=== PATIENT | male | born 1955 | race Caucasian/White ===

== ENCOUNTER 2020-02-21 12:20 | Inpatient (IN) | payer OTHER, MEDICARE ==
[~2020-02-21] VITALS: Ht 182.9 cm; Wt 83.1 kg
--- OUTSIDE RECORDS SUMMARY | ~2020-02-21 | XMS | Encounter Summary ---
Demographics + + + | Address | [address] | | | [place] [address] | + + + | Home Phone | | + + + | Preferred Language | Unknown | + + + | Marital Status | Unknown | + + + | Yazdanism Affiliation | Unknown | + + + | Race | White | + + + | Ethnic Group | Not or | + + + Author + + + | Author | [facility] | | | and [place] | + + + | Organization | [facility] | | | and [place] | + + + | Address | Unknown | + + + | Phone | Unavailable | + + + Support + + + + + | Name | Relationship | Address | Phone | + + + + + | Valeriedileep Gamboawell | [place] | [address] | | | | | [address] | | | | | [address] | | + + + + + Care Team Providers + +------+ + | Care Magnesium Mill Operator Name | Role | Phone | + +------+ + | Wing Justice PA-C | PCP | | + +------+ + Reason for Visit Auth/Cert +--------+--------+ + + + + | Status | Reason | Specialty | Diagnoses / | Referred By | Referred To | | | | | Procedures | Contact | Contact | +--------+--------+ + + + + | | | | Diagnoses | | | | | | | CAD in | | | | | | | [place] | | | | | | | artery | | | | | | | Procedures | | | | | | | MD CABG, | | | | | | | ARTERIAL, | | | | | | | THREE | | | | | | | CORONARY | | | | | | | ARTERY | | | | | | | BYPASS GRAFT | | | +--------+--------+ + + + + Encounter Details +--------+ + + + + | Date | Type | Department | Care Team | Description | +--------+ + + + + | 02/13/ | Hospital | [facility] | Cj Faustin MD | CAD in [place] | | 2019 - | Encounter | [facility] | [address] | artery; Coronary | | | | [address] | [place], [place] | artery disease | | 02/20/ | | [place], [place] | [address] | involving [place] | | 2019 | | [address] | | coronary artery of | | | | [phone] | | [place] heart without | | | | | | angina pectoris | +--------+ + + + + Social History + +-------+ +--------+ + | Tobacco Use | Types | Packs/Day | Years | Date | | | | | Used | | + +-------+ +--------+ + | Former Smoker | | 0.25 | 45 | 11/27/1974 - 01/2020 | + +-------+ +--------+ + + +---+---+---+ | Smokeless Tobacco: | | | | | Never Used | | | | + +---+---+---+ + + | Comments: Per pt quit a couple weeks ago | + + + + +---------+ + | Alcohol Use | Drinks/Week | oz/Week | Comments | + + +---------+ + | Not Currently | | | | + + +---------+ + + + + | Sex Assigned at | Date Recorded | | | | + + + | Not on file | | + + + documented as of this encounter Last Filed Vital Signs + + + + + | Vital Sign | Reading | Time Taken | Comments | + + + + + | Blood Pressure | 131/73 | 2020 7:41 AM | | | | | PDT | | + + + + + | Pulse | 83 | 2020 7:41 AM | | | | | PDT | | + + + + + | Temperature | 36.4 C (97.5 F) | 2020 7:41 AM | | | | | PDT | | + + + + + | Respiratory Rate | 16 | 2020 7:41 AM | | | | | PDT | | + + + + + | Oxygen Saturation | 94% | 2020 7:41 AM | | | | | PDT | | + + + + + | Inhaled Oxygen | - | - | | | Concentration | | | | + + + + + | Weight | 89.1 kg (196 lb 6.9 | 2020 5:00 AM | | | | oz) | PDT | | + + + + + | Height | 182.9 cm (6') | 02/14/2020 6:19 AM | | | | | PDT | | + + + + + | Body Mass Index | 26.64 | 02/14/2020 6:19 AM | | | | | PDT | | + + + + + documented in this encounter Functional Status + + + + | Functional Status | Response | Date of Assessment | + + + + | Are you deaf or do you have serious | No | 11/11/2019 | | difficulty hearing? | | | + + + + | Are you blind or do you have serious | No | 11/11/2019 | | difficulty seeing, even when wearing | | | | glasses? | | | + + + + | Do you have serious difficulty walking or | No | 11/11/2019 | | climbing stairs? (5 years old or older) | | | + + + + | Do you have difficulty dressing or bathing? | No | 11/11/2019 | | (5 years old or older) | | | + + + + | Because of a physical, mental, or emotional | No | 11/11/2019 | | condition, do you have difficulty doing | | | | errands alone such as visiting a doctor's | | | | office or shopping? [15 years old or | | | | older)] | | | + + + + + + + + | Cognitive Status | Response | Date of Assessment | + + + + | Because of a physical, mental, or emotional | No | 11/11/2019 | | condition, do you have serious difficulty | | | | concentrating, remembering, or making | | | | decisions? (5 years old or older) | | | + + + + documented as of this encounter Discharge Summaries Celio Rod PA - 2020 8:48 AM PDTFormatting of this note might be different fr om the original. Service: Cardiothoracic Surgery Discharge Summary Pt: Miles Ash Jr. AGE/SEX: 64 y.o. male ROOM: [address] [place] [address] : 1955 PCP: Wing Justice PA-C Date/Time:2020 8:49 AM PDT Date of Admission: 02/14/2020 Date of Discharge: 2020 Hospital Day: LOS: 7 days Surgery/Procedure: 02/14/2020, Dr Faustin CABG x 3 Post-Op Day: 7 Days Post-Op Discharge Provider: WHITNEY Rawls Discharge Diagnoses: Principal Problem: CAD in [place] artery Active Problems: Diabetes mellitus Resolved Problems: * No resolved hospital problems. * BRIEF HISTORY OF PRESENTATION: Miles Ash Jr. is a 64 y.o. male w/ significant past medical history of hype rtension, diabetes mellitus and ongoing tobacco abuse, who was admitted on 11/09/2019 with c hest pain. He was diagnosed with an acute inferior wall myocardial infarction and underwent PCI and stenting of the RPDA. The patient had significant residual disease in the left sys tem including a high-grade proximal LAD lesion involving a large diagonal branch. There wa s also moderate disease in the circumflex. The patient was treated with antiplatelet therap y for his stent for 3 months. HOSPITAL COURSE: The patient was taken to the operating room and underwent the above procedure(s) on 2019. Operation was uneventful (please refer to operative note for details of the same). The patient tolerated the procedure well and was transferred to the ICU intubated and in stable condition, and was extubated per ICU protocol. He spent 2 nights in the ICU and on patient was transferred to the cardiac unit, hemodynamically stable. He received electroly te replacement per protocol and continued to make good recovery, ambulating, tolerating card iac diet, and passing bowel movements. Chest tubes and pacing wires were removed without com plication, and the patient remained stable without supplemental oxygen. The patient was fit for discharge to [facility] on 2020. 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, left eye Diabetes mellitus ([facility]) 2012 Diabetes mellitus type I ([facility]) 2012 Heart attack ([facility]) 10/2019 Loose, teeth upper and lower dentures Stroke ([facility]) 2011 right sided, no residual effects per pt Past Surgical History: Procedure Laterality Date CARDIAC CATHERIZATION N/A 11/09/2019 Procedure: CV COR ANGIO; Surgeon: Gary Avery MD; [place] [facility] [place]ARDIAC CATHERIZ[place] N/A 11/09/2019 Procedure: CV LHC; Surgeon: Gary Avery MD; [place] [facility] [place] CARDIAC CATHERIZATION N/A 11/09/2019 Procedure: CV Stent; Surgeon: Gary Avery MD; [place] [facility] [place] CORONARY ARTERY BYPASS GRAFT N/A 02/14/2020 Procedure: CORONARY ARTERY BYPASS GRAFT; Surgeon: Cj Faustin MD; [place] [facility] [place] No Known Allergies Medications Prior to Admission Medication Sig Dispense Refill aspirin 81 mg chewable tablet Chew and swallow 1 tablet (81 mg total) Daily 90 tablet 3 atorvaSTATin (LIPITOR) 80 MG tablet Take 1 tablet (80 mg total) by mouth nightly 90 tab let 3 clopidogrel (PLAVIX) 75 mg tablet Take 1 tablet (75 mg total) by mouth Daily 90 tablet 3 lisinopril (PRINIVIL, ZESTRIL) 10 mg tablet Take 1 tablet (10 mg total) by mouth Daily 90 tablet 3 metoprolol succinate (TOPROL-XL) 50 mg 24 hr tablet Take 1 tablet (50 mg total) by mout h Daily 90 tablet 3 nitroglycerin (NITROSTAT) 0.[address] 1 tablet (0.4 mg total) under the tong ue every 5 minutes as needed for Chest pain (Patient not taking: Reported on 02/14/2020.) 30 tablet 11 DISCHARGE EXAM Vital Signs: BP 131/73 | Pulse 83 | Temp 36.4 C (97.5 F) (Oral) | Resp 16 | Ht 1.829 m (6') | W t 89.1 kg (196 lb 6.9 oz) | SpO2 94% | BMI 26.64 kg/m Temp: [36.4 C (97.5 F)-36.9 C (98.4 F)] 36.4 C (97.5 F) Pulse: [70-93] 83 Resp: [16-20] 16 BP: (102-155)/(53-74) 131/73 Current weight: Patient Vitals for the past 96 hrs: Weight 02/21/20 0500 89.1 kg (196 lb 6.9 oz) 02/20/20 0500 90.7 kg (199 lb 15.3 oz) 02/17/20 2134 97.5 kg (214 lb 15.2 oz) Admission weight: Weight: 90 kg (198 lb 6.6 oz) Physical Exam: General: Alert, oriented, in no acute distress,resting in chair Heart: RRR No murmur Lungs: CTA b/l Dim bases. Abdomen:Soft, nondistended, nontender Extremities: Well perfused, mild LE edema Musculoskeletal:no deformities or significant abnormalities Neurological: No gross focal motor or sensory deficits Skin:No rash or lesions. Mid-sternal incision dressing is C/D/I. Chest tube removed inc ision C/D/I. Pacing wires removed EVH incisions C/D/I. DATA Recent Results (from the past 24 hour(s)) Potassium Result Value Ref Range K 3.7 3.5 - 4.9 mmol/L POC Glucose Result Value Ref Range Glucose, POC 203 (H) 65 - 99 mg/dL POC Glucose Result Value Ref Range Glucose, POC 191 (H) 65 - 99 mg/dL Coronavirus (COVID-19) NAAT Specimen: Nasopharynx; Tissue Result Value Ref Range Patient Symptomatic NO SARS-CoV-2, NAAT (COVID-19) NEGATIVE NEG POC Glucose Result Value Ref Range Glucose, POC 166 (H) 65 - 99 mg/dL Basic Metabolic Panel Result Value Ref Range Na 142 135 - 145 mmol/L K 3.7 3.5 - 4.9 mmol/L Cl 107 99 - 109 mmol/L CO2 29 23 - 32 mmol/L Anion Gap 10 5 - 20 mmol/L Glucose 113 (H) 65 - 99 mg/dL BUN 17 8 - 25 mg/dL Creatinine 0.81 0.70 - 1.30 mg/dL BUN/Creatinine Ratio 21 Calcium 8.9 8.5 - 10.5 mg/dL Estimated GFR >60 >60 mL/min/1.73m2 CBC with Differential Result Value Ref Range WBC 9.24 3.80 - 11.00 K/uL Red Blood Cells 3.47 (L) 4.20 - 5.70 M/uL Hemoglobin 10.0 (L) 13.2 - 17.0 g/dL Hematocrit 31.0 (L) 39.0 - 50.0 % MCV 89.3 80.0 - 100.0 fl MCH 28.8 27.0 - 34.0 pg MCHC 32.3 32.0 - 35.5 g/dL RDW-SD 45.9 37 - 53 fl Platelet Count 439 (H) 150 - 400 K/uL MPV 9.4 fl Diff Type AUTOMATED % nRBC 0.0 0 /100WBC % Neutrophils 61.60 % IMMATURE GRANULOCYTE 2.10 % % Lymphocytes 20.30 % Monocyte % 12.00 % Eosinophils % 3.40 % Basophils % 0.60 % Neutrophils, Absolute 5.69 1.90 - 7.40 K/uL IMMATURE GRANS AB 0.19 (H) 0.00 - 0.07 K/uL Absolute Lymphocytes 1.88 1.00 - 3.90 K/uL Absolute Monocytes 1.11 (H) 0.00 - 0.80 K/uL Eosinophils, Absolute 0.31 0.00 - 0.50 K/uL Basophils, Absolute 0.06 0.00 - 0.10 K/uL Magnesium Result Value Ref Range Magnesium 2.0 1.7 - 2.4 mg/dL POC Glucose Result Value Ref Range Glucose, POC 106 (H) 65 - 99 mg/dL PLAN 1. Patient is discharged to Home. 2. Pt instructed to schedule follow-up appointments as below. 3. Education: Cardiac Surgery: The patient is being discharged with instructions on cardiac diet, natasha rnal precautions x 12 weeks and surgical incision care are according to the Society of Thora cic Surgeon guidelines. The patient is given instructions to start cardiac rehabilitation in accordance with manager field service recommendations. Pt advised not to drive for 6 weeks post disc harge. The patient was given extensive education regarding incision precautions. He/She was instructed to take showers using only soap and water on the incisions. The patient was encou raged to contact us in case he/she developed high fever, discharge from his/her wounds, or e xperience same symptoms prior to surgery Cardiothoracic Surgery will manage prescriptions until pt has seen seen Chemotherapist and Primary Care Physician, who will resume prescription management afterwards. Discharge Checklist: Aspirin (81mg/day) is being given at discharge:Yes A beta manju is being given at discharge:Yes A high-intensity statin (e.g., atorvastatin at 40-80 mg/day) is being given at discharge :Yes. Adherence to lipid modifying therapy to be monitored by cardiology An TRINY inhibitor or ARB is being given at discharge:Yes Warfarin is being given at discharge and will be managed by: N/A, warfarin is not being given at discharge. Tobacco cessation counseling is being given at discharge: Yes, with encouragement to set a quit date. A referral to phase 2 cardiac rehabilitation will be given by cardiology. Disposition: Discharge to: SNF Condition: Stable Code Status: Full Code Discharge Procedure Orders CBC no Differential Standing Status: Future Standing Exp. Date: 02/20/21 Comprehensive Metabolic Panel Standing Status: Future Standing Exp. Date: 02/20/21 Follow up: Cj Faustin MD [address] [place] [id number] Schedule an appointment as soon as possible for a visit in 2 weeks Post-op Gary Avery MD [address] [place] [address] Schedule an appointment as soon as possible for a visit in 2 weeks Post-op Wing Justice PA-C [address] [address] Schedule an appointment as soon as possible for a visit in 1 month Post-op Discharge Medications New Medications Details acetaminophen 500 mg tablet Take 2 tablets by mouth EVERY 6 TO 8 HOURS NEEDED for Pain. aka: TYLENOL docusate sodium 100 MG capsule Take 100 mg by mouth Twice daily as needed for Constipation. aka: COLACE furosemide 40 mg tablet Take 1 tablet by mouth Daily. aka: LASIX insulin detemir 100 units/mL injection (pen) Inject 18 Units under the skin every 24 hours. aka: LEVEMIR FLEXTOUCH insulin lispro 100 units/mL injection (vial) Inject 10 Units under the skin 3 times daily (with meals). aka: humaLOG, ADMELOG insulin lispro 100 units/mL injection (vial) Inject 2-14 Units under the skin 3 times daily (with meals) EndoTool Correctional Scale: For Blood Glucose (BG): 142 to 180 Give 2 units 181 to 220 Give 4 units 221 to 260 Give 6 units 261 to 300 Give 8 units 301 to 350 Give 10 units 351 to 400 Give 12 units Over 400 Give 14 units Only for use with U-100 insulin syringe... aka: humaLOG, ADMELOG tamsulosin 0.4 mg Caps Take 1 capsule by mouth daily (after breakfast). aka: FLOMAX traMADol 50 mg tablet Take 1-2 tablets by mouth every 6 hours as needed for Pain. aka: ULTRAM Changed Medications Details metoprolol succinate 100 mg ER tablet Take 1 tablet by mouth Daily. What changed: medication strength how much to take aka: TOPROL-XL Unchanged Medications Details aspirin 81 mg chewable tablet Chew and swallow 1 tablet (81 mg total) Daily atorvaSTATin 80 MG tablet Take 1 tablet (80 mg total) by mouth nightly aka: LIPITOR clopidogrel 75 mg tablet Take 1 tablet (75 mg total) by mouth Daily aka: PLAVIX lisinopril 10 mg tablet Take 1 tablet (10 mg total) by mouth Daily aka: PRINIVIL, ZESTRIL Discontinued Medications nitroglycerin 0.4 mg SL tablet aka: NITROSTAT Discharge took less than 30 minutes, to include final examination, discussion of admission, and preparation of prescriptions, instructions for on-going care, follow-up and documentati on of discharge summary. WHITNEY Rawls 2020 documented in this enco unter Discharge Instructions Instructions Celio Rod PA - 2020Formatting of this note might be different fr om the original. Cardiothoracic Surgery Discharge Instructions Routine Follow Up Appointments Follow up with Cardiothoracic Surgery, Dr Faustin in 2wks. Our office will call you to schedule a time. Please call [phone] for questions/concerns Follow up with your Chemotherapist, Dr. Avery, in 2 weeks. Please make an appointment. Follow up with your Primary Care Physician in 3-4 weeks. Please make an appointment. General Instructions Follow the instructions in the the [facility] Cardiac Surgery Navigation Guide. This guide is a n excellent resource for concerns you and your family may have as you heal from surgery. Watch the [facility] Heart Surgery video on YouTube: [email or web address].youtube.com/watch?[email or web address] The [facility] Cardiothoracic Surgery office will contact you within 72 hours of your hospital discharge. If you do not receive a phone call or have any concerns before then, please call our office Mon-Fri 8:00am-5:00pm at [phone]. Please make sure we have the best conta ct number for you before you leave the hospital. Recovery Course: Until post-op week 6: please adhere to strict sternal precautions. Sternum is approx. 30-50% healed, given no complications. This includes the following: no pulling, pushing, or lifting, anything heavier than a mi lk jug or upper body opposing motion (arms in going in opposite directions). No driving until post-op week 6. No side-sleeping until post-op week 6. Post-op week 6-10: Sternum is approximately 50-90% healed. Begin Cardiac Rehab (this is approximately 3-5x/ week for 30 mins each). Referred to you by your manager field service. Post-op week 10-12: Sternum is approximately 90-100% healed. Should be near/at/better w/ your recovery than you were prior to surgery. Tips/Tricks for a Successful Recovery: Walk, walk, walk, walk as much as you can, a little farther each walk. Use your IS a few times every hour for a week, and then once /hr the next week and so on . Diet *These are in addition to any dietary restrictions you may already follow for other conditions. Most importantly: limit your sugar intake. (Yes, even if you are not a diabetic). Resear ch shows that sugar is a direct reflection to inflammation, which is not helpful for recover y. Continue a low sodium (salt) diet throughout the course of your life. Salt will cause hy pertension (high blood pressure). Try to decrease your intake of saturated fats (greasy/fried foods) and cholesterol. Increase your intake of high fiber foods such as vegetables, fruit, and whole grains. No caffeine while you are initially recovering from surgery as it can cause heart palpit ations. A cup of coffee a day is okay as long as your not experiencing symptoms. No alcohol, especially when taking pain medications (ie: narcotics). Eat plenty of fresh fruits and vegetables, especially that have the skin on them, to hel p reduce constipation. Tips/Tricks: Of your week's meals, try to eat 80% that are fresh food that isn't from a can, box, bag , or frozen. Try to eat a majority of your foods from the perimeter of the grocery store. Avoid the m iddle aisles, these foods are high in preservatives and are unhealthy options. Bowel Care Most patients experience some degree of constipation after surgery. To minimize constipati on: Take 4-6 short walks daily if able Take a twice daily fiber supplement such as Benefiber, Citrucel, or Metamucil Take stool softeners daily as prescribed, such as Colace Take over the counter medicines such as Milk of Magnesia (MOM) or Miralax. Tips/Tricks: In order to wipe after a bathroom visit, make sure you grab one shoulder wi th one arm, and turn your whole upper body towards the side you will use to wipe. This helps follow strict sternal precautions for 6 weeks. Daily Monitoring Follow the home care instructions in the [facility] Cardiac Surgery Navigation Guide. Please monitor your weight, blood pressure, heart rate and blood glucose daily (diabetics o nly) daily. Notify the [facility] Cardiothoracic Surgery office if: Any weight gain/loss of 4lbs or more in 2 days. Weigh yourself daily in the AM. Temperature greater than 101F. Redness, swelling, drainage, or increased tenderness along your incision. Significant shortness of breath, weight gain or loss, ankle swelling, or chest pain. Persistent loose stools or diarrhea. Medication Instructions Your medications may change after surgery. Some of these changes will be temporary, other changes are related to your senior care health maintenance. Ultimately your manager field service or [facility] care physician will determine what medications you should continue after you recover f rom surgery. Only take the medications on your Discharge Medication List when you leave the hospital. Review the list with your nurse prior to leaving the hospital and at the pharmacy when p icking up your medications. Cardiothoracic Surgery will manage prescriptions until you have seen your Chemotherapist a fl Primary Care Physician, in which they will resume prescription management afterwards. Dressings and Stitches You will not be leaving the hospital with a dressing on your surgical incision site. Theref ore, it is important to monitor for the changes covered under daily monitoring. All the stitches along your mid-sternal and leg incisions will dissolve and do not need to be removed. If you have any visible stitches at smaller incision sites (where the chest t ubes were) please have them removed at your follow up visit with [facility] Cardiothoracic Surge ry - no later than 2 weeks after your surgery. Wash incision with soap and water - do not scrub, rinse with warm water, and do not allo w the shower water to directly impact the incision (ie: place back towards shower head). Use clean towels on incision sites. Pat dry, do not cross contaminate. No baths, hot tubs, or swimming until incision sites are 100% scab-free and look like a scar. Do not use any dressings, lotions, creams, oils, neosporin, band-aids etc, on incisions. Reason to go to ER/Call 911 1. You cannot breathe. 2. You are having chest pain or pain that radiates into your jaw, arm, or the middle of you r back. 3. You feel as though you are going to lose consciousness. 4. Your heart is racing too fast or feels irregular. Reason to call our office 1. Weight gain of 2-5 lbs in 24 hours. Please take daily weights. 2. Drainage from any of your incisions, or opening of any incisions (Signs of infection (re dness, swelling, drainage, or warmth) at the incision site 3. Popping or clicking in chest - immediately stop the movement which caused that symptom. If it persists please call us, and we will order a Chest x-ray or CT scan. 4. Chest pain or a return of the heart symptoms you had before your surgery, changes in the location, type, or severity of pain 5. Fever above 100F (37.8C) 6. Shortness of breath 7. Fainting 8. New or increased swelling in your hands, feet, or ankles 9. Fast or irregular pulse 10. Any unusual bleeding Normal recovery: 1. Small lump at the top of the sternal incision that will resolve with time. 2. Numbness or tingling in small or ring finger, due to pinched cervical nerve from positio harshad during surgery. 3. Pain across chest: Due to surgical retraction, FERNANDEZ extraction; you may also experience pain in the neck, back, hips, or shoulder. 4. Sensitivity to your heart: More acute awareness of your heartbeat (sound, sensation) - a fter surgery the pericardium is no longer intact and there is no fluid to insulate the heart . Over time scar tissue will develop and sensitivity will diminish. 5. Neurological Cognitive Disfunction: The heart-lung machine causes micro emboli, which ca n cause short term memory loss, confusion, and/or inability to focus - the symptoms should s lowly resolve over time. Exercise: Ambulating: Progressively increase the amount of time and distance. The goal is to walk a minimum of 6 times a day. Do not use arms to push, pull, or lift greater than 5 lbs. Move arms symmetrically, not opposing (different directions). Emotions: It is common to feel somewhat emotional and/or depressed at times. You may also feel tired, irritable, anxious, or simply not quite yourself for a few weeks. These feelings usually im prove as your recovery progresses. If they don't, discuss these feelings with your primary c are provider. Sex: Rest assured that sex won't interfere with your healing. Until the breast bone is fully hea led, select a position that will reduce discomfort or stress to the breast bone. Cardiac Rehabilitation: Your Chemotherapist will refer you to Outpatient Cardiac Rehabilitation. This program can ass ist you with supervised exercise and education that focus on your specific risk factors. In addition, it helps to "retrain" you to perform normal tasks that may be difficult immediatel y after surgery. Cardiac rehab starts at about 4-6 weeks post-op and lasts for 12 weeks, wit h 3 visits per week, and about 1 hour per visit. Your manager field service will provide you with a r eferral to cardiac rehab when he/she feels that you are physically ready. After Coronary Artery Bypass Surgery Your doctor performed coronary artery bypass graft surgery (also called CABG, pronounced cabbage ). This surgery created new pathways around blocked parts of your heart s blood vessels, allowing blood to reach your heart muscle. Your doctor used a healthy blood vessel from another part of your body (a graft) to restore blood flow. Activity Discuss with your doctor what you can and can t do as you recover. You will have good and bad days. This is normal. But tell your doctor if you feel depressed, have trouble sleep ing, or have a persistent decrease in appetite. Although these problems are common after levy kalpana, they can slow your recovery. It s important to seek help. Let others drive you wherever you need to go for the first 3 to 6 weeks after your surge ry. Ask someone to stand nearby while you shower or do other activities, just in case you ne ed help. Avoid using very hot water while showering. It can affect your circulation and make you dizzy. Weigh yourself every day, at the same time of day, and in the same kind of clothes. Quic k weight gain can be a sign of a problem that needs your doctor s attention. You may start doing light work around the house and yard after 2 to 3 weeks at home. Don t lift anything heavier than 5 pounds. Until approved by your doctor, avoid mowing the la wn, vacuuming, driving, and doing other activities that could strain your breastbone. Ask your doctor when you can expect to return to work. Pain Relief You will recover faster after surgery if your pain is kept under control: Don t be surprised if you feel sharp pains as your breastbone heals or if you have sor eness in your incision during changes in weather. Tell your doctor if you have questions about what you re feeling, if your medications don t reduce your pain, or if you suddenly feel worse. Controlling Your Risk Factors After Bypass Surgery Managing coronary artery disease After surgery, the blood flow to your heart is better, but new blockages can still form. Yo u need to take steps to prevent this. By committing yourself to managing your risk factors f or coronary artery disease, commonly called heart disease, you can help keep new blockages f rom forming. This will lower your changes of needing another bypass surgery. Controlling risk factors To manage heart disease, you must control as many risk factors as you can. Work with your [facility] care provider to identify your risk factors and to get them under control. Your health care provider will work with you to modify lifestyle factors as needed to help prevent profression of atherosclerotic cardiovascular disease (ASCVD), which may be the caus e of your chest pain (angina). Factors you may need to work on include: Diet Your health care provider will give you information on dietary changes that you may need to make, based on your situation. Your provider may recommend that you see a registered dietit bebe for help with diet changes. Changes may include: Reducing fat and cholesterol intake Reducing sodium (salt) intake, especially if you have high blood pressure Increasing your intake of fresh vegetables and fruits Eating lean proteins, such as fish, poultry, and legumes (beans and peas) and eating les s red meat and processed meats Using low-fat dairy products Using vegetable and nut oils in limited amounts Limiting sweets and processed foods such as chips, cookies, and baked goods Weight management If you are overweight or obese, your health care provider will work with you to lose weight and lower your body mass index (BMI) to a normal or near-normal level. Making diet changes and increasing physical activity can help. Heart Medications After Bypass Surgery Heart medications Your doctor may prescribe some of these medications after your bypass surgery: Antiplatelet medications (such as aspirin) help prevent blood clots. They also reduce yo ur risk of a heart attack. Beta-blockers reduce the heart rate and the force of the heartbeat. They also lower bloo d pressure. TRINY inhibitors lower blood pressure and decrease strain on the heart. Lipid-lowering medications reduce the amount of LDL ( bad ) cholesterol and other fa ts in the blood. Some medications also improve levels of HDL ( good ) cholesterol. Other medications Depending on your risk factors, you may also take medications for related conditions: If you have high blood pressure, you may take medications such as diuretics and vasodila tors. These lower blood pressure, which helps control heart disease. If you have diabetes, pills or insulin injections can keep blood sugar under control. Th is reduces the risk of diabetes complications, including heart disease. Tips for taking medications Set up a routine. For example, take your medication with the same meal each day, or befo re you go to bed. Keep a list of all your medications and their dosages. Show this list to any doctor or d entist who treats you. Also, show it to your pharmacist before buying any prescription or ov oh-teb-kjiyehe medication. Managing Pain After Bypass Surgery Taking your medicines After your bypass surgery, you may be given prescriptions for new medicines when you leave the hospital. Take each one as directed. Keeping a chart or putting your pills in a 7-day pi ll box can help you remember. Starting a Cardiac Rehab Program After Bypass Surgery A cardiac rehab program can take place in a hospital, a clinic, or a doctor's office. You' ll work with a team of specialists. Your team may include doctors, nurses, exercise speciali sts, dietitians, and counselors. Cardiac rehab can help you get back into your normal routin e after surgery. It also provides tools to improve your overall health for the rest of your life. Program components A cardiac rehab program includes the following: Exercise. You'll learn how to exercise safely. Your program will include exercises to in crease fitness, endurance, and strength. Nutrition education. You'll work with a dietitian to learn the best ways to eat for hear t health. You'll also learn ways to use this knowledge when you shop, cook, and eat out. Help managing risk factors. You'll learn about controlling related conditions such as hi gh blood pressure, high cholesterol, and diabetes. Counseling. You'll get help dealing with the emotional aspects of CAD and treatment. Thi s may include help with depression and anxiety. It may also include practical advice and sup port for quitting smoking, losing weight, being physically active, and continuing your sex l navneet. Family education. Your family can learn with you. That way, they can help you to continu e using your new skills and knowledge after you finish the program. Your Emotional Health After Bypass Surgery Having heart disease and heart surgery may trigger a variety of feelings. While you may be relieved to have had treatment, you may also feel depressed or angry at times. You may also feel that your loved ones don t let you do enough. These feelings are normal, but they can make you short-tempered with those around you. Letting them know how you feel will help lis id misunderstandings. Talking about your feelings and needs If your loved ones know how you feel, they can support you better. When you talk with your spouse or other loved ones: Choose a time when you can relax and talk without being disturbed. Use terms such as I feel or I need you to This tells your loved one ho w you feel without blaming him or her. Be sure to give your loved one time to say what he or she feels and needs. This is a julee d time for those close to you, too. You may want to talk first to a friend or family member who doesn t live with you. Thi s can help you understand your own feelings. Notes to family and friends Accept that your loved one may be depressed or angry at times. Try not to blame yourself for these feelings. Recognize that you may feel angry or depressed, too. Try to talk openly about your feeli ngs. You may want to talk with a friend or other family member first MEDICATION: BETA-BLOCKERS You have been prescribed a beta-manju. This is a special type of drug that contains many different generic and brand names, such as Inderal, (propranolol), Tenormin (atenolol), Lopr essor (metoprolol), Corgard (nadolol), and others. They are used for angina, high blood pres sure, rapid heart rate, migraine headaches, and other problems. DIRECTIONS FOR USE: Unless otherwise stated, take your medicine on an empty stomach either one half hour bef ore meals or 2 hours after a meal. If you find that it causes nausea when taken on an empty stomach, you may take it with food. Take the medicine at regular intervals and as directed. Please take your blood pressure before you take each dose. If your blood pressure (top n umber) is less than 110 or your heart rate is less than 60, please skip that one dose and th en resume your regular medication regimen. If you were given this medicine for high blood pressure, measure your blood pressure tyrone ry few days to check your response. You may measure your own blood pressure at home, or have someone do it for you at a pharmacy, clinic, or your doctor s office. Notify your doctor if your pressure does not begin to improve within 1 week. Notify your doctor if your blood p ressure goes below 110/60 on 2 readings in a row (this is too low) or if your pulse stays be low 60. The goal for most persons is to get their blood pressure below 140/90 and pulse unde r 100. If you were told to take this medicine every day, do not skip doses or suddenly stop lashell ing this medicine since this might make your condition worse. Talk to your doctor if you nee d to stop this medicine so you can reduce the dose gradually. WHAT TO WATCH FOR: POSSIBLE SIDE EFFECTS: Nausea, vomiting, cramps, gas (Take the medicine with food. Contact your doctor if symptoms persist). Sedation, fatigue, dizziness, confusion, diarrhea, or cons tipation (Contact your doctor if these effects persist). Shortness of breath, wheezing, swel ling of feet or legs, slow pulse, fainting (Contact your doctor or return to this facility p romptly). MEDICAL CONDITIONS: Before starting this medicine, be sure your doctor knows if you have an y of the following conditions: or Asthma, chronic bronchitis or emphysema Heart disease or diabetes Thyroid, liver, or kidney disease DRUG INTERACTIONS: Before starting this medicine, be sure your doctor knows if you are taki ng any of the following drugs: Tagamet (cimetidine), calcium channel blockers (Calan, verapamil), another beta-manju, theophylline (Aminophylline, Theodur), MAO inhibitors (Parnate) tranylcypromine, Nardil (ph enelzine) WARNING:Do not drive, ride a bicycle, or operate dangerous equipment while taking this medi cine until you know how it will affect you. documented in this encounter Medications at Time of Discharge + + + +---------+ + + | Medication | Sig | Dispensed | Refills | Start | End Date | | | | | | Date | | + + + +---------+ + + | acetaminophen | Take 2 tablets by | 60 | 0 | /30/20 | | | (TYLENOL) 500 mg | mouth EVERY 6 TO 8 | tablet | | 20 | | | tablet | HOURS NEEDED for | | | | | | | Pain. | | | | | + + + +---------+ + + | aspirin 81 mg | Chew and swallow 1 | 90 | 3 | 11/11/19 | | | chewable tablet | tablet (81 mg total) | tablet | | 20 | 1 | | | Daily | | | | | + + + +---------+ + + | atorvaSTATin | Take 1 tablet (80 mg | 90 | 3 | 11/10/19 | | | (LIPITOR) 80 MG | total) by mouth | tablet | | 20 | 1 | | tablet | nightly | | | | | + + + +---------+ + + | clopidogrel | Take 1 tablet (75 mg | 90 | 3 | 11/10/20 | | | (PLAVIX) 75 mg | total) by mouth | tablet | | 20 | 1 | | tablet | Daily | | | | | + + + +---------+ + + | docusate sodium | Take 100 mg by mouth | 30 | 1 | 20 | | | (COLACE) 100 MG | Twice daily as | capsule | | 20 | | | capsule | needed for | | | | | | | Constipation. | | | | | + + + +---------+ + + | furosemide (LASIX) | Take 1 tablet by | 30 | 0 | 02/20/20 | | | 40 mg tablet | mouth Daily. | tablet | | 20 | | + + + +---------+ + + | insulin detemir | Inject 18 Units | 6 mL | 0 | 02/20/20 | | | (LEVEMIR FLEXTOUCH) | under the skin every | | | 20 | | | 100 units/mL | 24 hours. | | | | | | injection (pen) | | | | | | + + + +---------+ + + | insulin lispro | Inject 10 Units | 9 mL | 0 | /30/20 | | | (HUMALOG, ADMELOG) | under the skin 3 | | | 20 | | | 100 units/mL | times daily (with | | | | | | injection (vial) | meals). | | | | | + + + +---------+ + + | insulin lispro | Inject 2-14 Units | 3 mL | 0 | 02/21/20 | | | (HUMALOG, ADMELOG) | under the skin 3 | | | 20 | | | 100 units/mL | times daily (with | | | | | | injection (vial) | meals) EndoTool | | | | | | | Correctional | | | | | | | Scale:For Blood | | | | | | | Glucose (BG):142 to | | | | | | | 180 Give 2 | | | | | | | to 220 Give | | | | | | | 4 [id number] to 260 | | | | | | | Give 6 [id number] | | | | | | | to 300 Give 8 | | | | | | | [id number] to 350 Give | | | | | | | 10 units 351 to | | | | | | | 400 Give 12 units | | | | | | | Over 400 Give 14 | | | | | | | units Only for use | | | | | | | with U-100 insulin | | | | | | | syringe... | | | | | + + + +---------+ + + | lisinopril | Take 1 tablet (10 mg | 90 | 3 | 11/11/19 | | | (PRINIVIL, ZESTRIL) | total) by mouth | tablet | | 20 | 1 | | 10 mg tablet | Daily | | | | | + + + +---------+ + + | metoprolol | Take 1 tablet by | 30 | 1 | 02/21/20 | | | succinate | mouth Daily. | tablet | | 20 | | | (TOPROL-XL) 100 mg | | | | | | | ER tablet | | | | | | + + + +---------+ + + | tamsulosin | Take 1 capsule by | 30 | 1 | 02/21/20 | | | (FLOMAX) 0.4 mg CAPS | mouth daily (after | capsule | | 20 | | | | breakfast). | | | | | + + + +---------+ + + | traMADol (ULTRAM) | Take 1-2 tablets by | 120 | 0 | 02/21/20 | | | 50 mg tablet | mouth every 6 hours | tablet | | 20 | | | | as needed for Pain. | | | | | + + + +---------+ + + documented as of this encounter Progress Notes Theresa Ham RN - 2020 10:58 AM PDTPatient [facility] via his friend Thien who will be transporting. Verbal and written instructions provided to galileo blackwell, all questions addressed. Rx and all belongings gathered. IVs removed and bandages appl ied. Patient wheeled to car and discharged in stable condition. Report was called to RN at [facility]. Theresa Ham RN Celio brooke PA - 2020 8:25 AM PDT [facility] Service: Cardiothoracic Surgery Progress Note ROOM: [address] [place] [address] Hospital Day: LOS: 7 days Post-Op Day: 7 Days Post-Op Surgery/Procedure: 02/14/2020, Dr Faustin CABG x 3 SUBJECTIVE Events Overnight: Stable night. Ready to go to swingbed UOP: 1.9L/24hs CTs/TPWs removed BM+/24hrs OBJECTIVE Vital Signs: BP 131/73 | Pulse 83 | Temp 36.4 C (97.5 F) (Oral) | Resp 16 | Ht 1.829 m (6') | W t 89.1 kg (196 lb 6.9 oz) | SpO2 94% | BMI 26.64 kg/m Current weight: Patient Vitals for the past 96 hrs: Weight 02/21/20 0500 89.1 kg (196 lb 6.9 oz) 02/20/20 0500 90.7 kg (199 lb 15.3 oz) 02/17/20 2134 97.5 kg (214 lb 15.2 oz) Admission weight: Weight: 90 kg (198 lb 6.6 oz) Physical Exam: General: Alert, oriented, in no acute distress, resting in chair Heart: RRR No murmur Lungs: CTA b/l Dim bases. Abdomen: Soft, nondistended, nontender Extremities: Well perfused, mild LE edema Musculoskeletal: no deformities or significant abnormalities Neurological: No gross focal motor or sensory deficits Skin: No rash or lesions. Mid-sternal incision dressing is C/D/I. Chest tube removed inci tanika C/D/I. Pacing wires removed EVH incisions C/D/I. DATA: Scheduled Medications acetaminophen 1,000 mg Oral Q8H aspirin 81 mg Oral Daily atorvaSTATin 80 mg Oral Nightly clopidogrel 75 mg Oral Daily docusate sodium 100 mg Oral BID famotidine 20 mg Oral BID furosemide 40 mg Oral BID (8 and 16) influenza quadrivalent 0.5 mL Intramuscular One Time Vaccine insulin detemir 18 Units Subcutaneous Q24H insulin lispro 1-7 Units Subcutaneous Nightly insulin lispro 2-14 Units Subcutaneous TID WC insulin lispro 5 Units Subcutaneous TID WC lisinopril 10 mg Oral Daily magnesium hydroxide 30 mL Oral Nightly metoprolol succinate 100 mg Oral Daily tamsulosin 0.4 mg Oral Daily after breakfast Continuous Infusions dexmedetomidine Stopped (02/17/20 0735) dextrose 10% PRN Medications albuterol, aspirin, bisacodyl, Hypoglycemia Management AND POCT Glucose AND dextros e AND dextrose 10%, Magnesium replacement - NON ICU AND Magnesium AND magnesium oxide AND magnesium sulfate AND magnesium sulfate, menthol throat lozenges, ondanset thien, phenol, polyethylene glycol, Potassium replacement - NON ICU AND Potassium AND potassium chloride AND potassium chloride AND potassium chloride IVPB (other volumes & diluents) AND potassium chloride IVPB (other volumes & diluents), traMADol HOME MEDS: Prior to Admission medications Medication Sig Start Date End Date Taking? Authorizing Provider aspirin 81 mg chewable tablet Chew and swallow 1 tablet (81 mg total) Daily 11/11/19 11/10/20 Yes Gary Avery MD atorvaSTATin (LIPITOR) 80 MG tablet Take 1 tablet (80 mg total) by mouth nightly 11/10/19 Yes Gary Avery MD clopidogrel (PLAVIX) 75 mg tablet Take 1 tablet (75 mg total) by mouth Daily 11/11/19 1 Yes Gary Avery MD lisinopril (PRINIVIL, ZESTRIL) 10 mg tablet Take 1 tablet (10 mg total) by mouth Daily 11/1011/10/20 Yes Gary Avery MD metoprolol succinate (TOPROL-XL) 50 mg 24 hr tablet Take 1 tablet (50 mg total) by mouth Da wili 11/11/19 11/10/20 Yes Gary Avery MD nitroglycerin (NITROSTAT) 0.[address] 1 tablet (0.4 mg total) under the tongue e very 5 minutes as needed for Chest pain Patient not taking: Reported on 02/14/2020. 11/10/19 11/09/20 Gary Avery MD LABS: Recent Results (from the past 24 hour(s)) Potassium Result Value Ref Range K 3.7 3.5 - 4.9 mmol/L POC Glucose Result Value Ref Range Glucose, POC 203 (H) 65 - 99 mg/dL POC Glucose Result Value Ref Range Glucose, POC 191 (H) 65 - 99 mg/dL Coronavirus (COVID-19) NAAT Specimen: Nasopharynx; Tissue Result Value Ref Range Patient Symptomatic NO SARS-CoV-2, NAAT (COVID-19) NEGATIVE NEG POC Glucose Result Value Ref Range Glucose, POC 166 (H) 65 - 99 mg/dL Basic Metabolic Panel Result Value Ref Range Na 142 135 - 145 mmol/L K 3.7 3.5 - 4.9 mmol/L Cl 107 99 - 109 mmol/L CO2 29 23 - 32 mmol/L Anion Gap 10 5 - 20 mmol/L Glucose 113 (H) 65 - 99 mg/dL BUN 17 8 - 25 mg/dL Creatinine 0.81 0.70 - 1.30 mg/dL BUN/Creatinine Ratio 21 Calcium 8.9 8.5 - 10.5 mg/dL Estimated GFR >60 >60 mL/min/1.73m2 CBC with Differential Result Value Ref Range WBC 9.24 3.80 - 11.00 K/uL Red Blood Cells 3.47 (L) 4.20 - 5.70 M/uL Hemoglobin 10.0 (L) 13.2 - 17.0 g/dL Hematocrit 31.0 (L) 39.0 - 50.0 % MCV 89.3 80.0 - 100.0 fl MCH 28.8 27.0 - 34.0 pg MCHC 32.3 32.0 - 35.5 g/dL RDW-SD 45.9 37 - 53 fl Platelet Count 439 (H) 150 - 400 K/uL MPV 9.4 fl Diff Type AUTOMATED % nRBC 0.0 0 /100WBC % Neutrophils 61.60 % IMMATURE GRANULOCYTE 2.10 % % Lymphocytes 20.30 % Monocyte % 12.00 % Eosinophils % 3.40 % Basophils % 0.60 % Neutrophils, Absolute 5.69 1.90 - 7.40 K/uL IMMATURE GRANS AB 0.19 (H) 0.00 - 0.07 K/uL Absolute Lymphocytes 1.88 1.00 - 3.90 K/uL Absolute Monocytes 1.11 (H) 0.00 - 0.80 K/uL Eosinophils, Absolute 0.31 0.00 - 0.50 K/uL Basophils, Absolute 0.06 0.00 - 0.10 K/uL Magnesium Result Value Ref Range Magnesium 2.0 1.7 - 2.4 mg/dL POC Glucose Result Value Ref Range Glucose, POC 106 (H) 65 - 99 mg/dL PROBLEM LIST Principal Problem: CAD in [place] artery Active Problems: Diabetes mellitus ASSESSMENT & PLAN S/P CABG -Continue ASA, Statin, BB, Plavix -Encourage ambulation Discharge to SNF today Code Status: Full Code The patient has been seen, all new lab results and imaging reviewed, and the plan discussed with the attending provider, WHITNEY Connell 2020 Gary Viveros MD - 7:59 AM PDT [facility] Service: Cardiology Progress Note Name of Township Clerk: Gary Avery MD I have seen the patient on 2020 SUBJECTIVE He feels overall well. Stable blood pressure and heart rate. -1614 mL over the last 24 hours. Stable hemoglobin. Normal creatinine. Chest x-ray showed improvement in bilateral opacities. Medications were reviewed. OBJECTIVE Vital Signs: BP 131/73 | Pulse 83 | Temp 36.4 C (97.5 F) (Oral) | Resp 16 | Ht 1.829 m (6') | W t 89.1 kg (196 lb 6.9 oz) | SpO2 94% | BMI 26.64 kg/m Cardiovascular: Regular rhythm, S1 normal and S2 normal. No murmur heard. Pulses: Radial pulses are 2+ on the right side, and 2+ on the left side. Pulmonary/Chest: Good bilateral air entry. No added sounds. Abdominal: Soft. No tenderness. Musculoskeletal: No edema. Neurological: Alert. No cranial nerve deficit. Skin: Warm and dry. DATA Recent Labs Lab 02/21/20 0442 NA 142 K 3.7 CO2 29 BUN 17 CALCIUM 8.9 MG 2.0 Recent Labs Lab 02/21/20 0442 WBC 9.24 HGB 10.0* HCT 31.0* MCV 89.3 PLT 439* EKG: February 14, 2020, reviewed personally on February 15, 2020. Sinus rhythm, heart rate 94 , normal axis, normal QRS voltage in duration, normal ST-T segment. November 10, 2019, reviewed personally on November 10, 2019. Normal ECG. Sinus rhythm, heart ra te 67. November 09, 2019, reviewed personally on November 09, 2019. Sinus rhythm, heart rate 70, normal axis, normal P wave and MD interval, inferior ST elevation. Last Echo: November 10, 2019. EF 60 to 65%. Mild concentric left ventricular hypertrophy. Moderate h ypokinesia of the basal to mid inferolateral wallandbasal inferior wall. No significan t valvular disorders. Last stress test: Last cath: November 09, 2019. Three-vessel disease, including bifurcating proximal LAD. 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 Angioplasty for the right AV groove artery with a Synergy 2.5 x 24 mm. Carotid US: AAA screening: Lower extremity US: OTHERS: ASSESSMENT & PLAN Miles Ash Jr. is 64 y.o. gentleman with the following medical conditions: 1. Hypertension 2. Diabetes, on oral hypoglycemic medications 3. Coronary artery disease November 09, 2019, inferior STEMI. Heart catheterization showed three-vessel disease. Eunice oplasty for the right AV groove artery with a Synergy 2.5 x 24 mm. 4. Stroke, 2012, full recovery 5. Current smoker, 1 pack every day. Presented on February 14, 2020 for bypass surgery. CABG x3, FERNANDEZ to the LAD, SVG to the diagonal, SVG to the second obtuse marginal. Recommendations Continue aspirin and clopidogrel. Continue high intensity statins. He can be discharged on Lasix once a day. Switch to metoprolol succinate 100 mg once a day. Start lisinopril 10 mg Follow up in the clinic with non-fasting blood tests. Code Status: Full Code Gary Avery MD 2020 ary Avery MD - 8:40 AM PDT [facility] Service: Cardiology Progress Note Name of Township Clerk: Gary Avery MD I have seen the patient on 02/20/2020 SUBJECTIVE He feels overall well. Stable blood pressure and heart rate. -2000 mL over the last 24 hours. Stable hemoglobin. Normal creatinine. Chest x-ray showed bilateral opacities, effusion with atelectasis is most likely. Pneumoni a is less likely. Medications were reviewed. OBJECTIVE Vital Signs: BP 108/57 | Pulse 87 | Temp 36.7 C (98.1 F) (Oral) | Resp 20 | Ht 1.829 m (6') | W t 90.7 kg (199 lb 15.3 oz) | SpO2 96% | BMI 27.12 kg/m Cardiovascular: Regular rhythm, S1 normal and S2 normal. No murmur heard. Pulses: Radial pulses are 2+ on the right side, and 2+ on the left side. Pulmonary/Chest: Decrease air entry on bilateral bases. No added sounds. Abdominal: Soft. No tenderness. Musculoskeletal: No edema. Neurological: Alert. No cranial nerve deficit. Skin: Warm and dry. DATA Recent Labs Lab 02/20/20 0542 NA 140 K 3.6 CO2 27 BUN 14 CALCIUM 8.7 MG 2.0 Recent Labs Lab 02/20/20 0542 WBC 9.39 HGB 11.1* HCT 33.7* MCV 89.2 PLT 395 EKG: February 14, 2020, reviewed personally on February 15, 2020. Sinus rhythm, heart rate 94 , normal axis, normal QRS voltage in duration, normal ST-T segment. November 10, 2019, reviewed personally on November 10, 2019. Normal ECG. Sinus rhythm, heart ra te 67. November 09, 2019, reviewed personally on November 09, 2019. Sinus rhythm, heart rate 70, normal axis, normal P wave and MD interval, inferior ST elevation. Last Echo: November 10, 2019. EF 60 to 65%. Mild concentric left ventricular hypertrophy. Moderate h ypokinesia of the basal to mid inferolateral wallandbasal inferior wall. No significan t valvular disorders. Last stress test: Last cath: November 09, 2019. Three-vessel disease, including bifurcating proximal LAD. 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 Angioplasty for the right AV groove artery with a Synergy 2.5 x 24 mm. Carotid US: AAA screening: Lower extremity US: OTHERS: ASSESSMENT & PLAN Miles Ryan Ash Jr. is 64 y.o. gentleman with the following medical conditions: 1. Hypertension 2. Diabetes, on oral hypoglycemic medications 3. Coronary artery disease November 09, 2019, inferior STEMI. Heart catheterization showed three-vessel disease. Eunice oplasty for the right AV groove artery with a Synergy 2.5 x 24 mm. 4. Stroke, 2013, full recovery 5. Current smoker, 1 pack every day. Presented on February 14, 2020 for bypass surgery. CABG x3, FERNANDEZ to the LAD, SVG to the diagonal, SVG to the second obtuse marginal. Recommendations Continue aspirin and clopidogrel. Continue high intensity statins. Continue diuresis. Code Status: Full Code Gary Avery MD 02/20/2020 Sandy Stiles RN - 0 02/20/2020 6:30 AM PDTBed/Tab alarm set, fall mat next to chair/bed. Pt very poor with ster nal precuations. VSS. Hourly rounding uneventful End of shift chart check complete Jamal Sanchez PA - 02/20/2020 6:11 AM PDT [facility] Daily Progress Note 02/20/2020 NAME/AGE/: Miles Ash Jr. 64 y.o. male (1955) ADMISSION DATE: 02/14/2020 HOSPITAL COURSE 6 Days Post-Op Hospital Day: 7 No notes on file Active Hospital Problems Diagnosis CAD in [place] artery Diabetes mellitus Resolved Hospital Problems No resolved problems to display. ASSESSMENT / PLAN 1. S/P CABG x 3 POD 6 2. On DAPT, statin and Bblocker. 3. Interval improvement in impulsiveness 4. Sternum stable, prevena removed and incision OK Disposition: - Anticipate discharge tomorrow to: [facility]. SUBJECTIVE Mr. Ash is showing incremental improvement. His sternum is stable and his incision is h ealing. If his BP continues to rise he may need an additional BP agent, or the metoprolol co uld be pushed to 50mg bid. Will Defer to Dr Avery. OBJECTIVE Last Vitals: Pulse: 98 BP: 165/82 Resp: 20 on SpO2: 95 % on room air Temp: 36.5 C (97.7 F) Telemetry: normal sinus 24 hour I/O: Weight: Intake/Output Summary (Last 24 hours) at 02/20/2020 0611 Last data filed at 02/20/2020 0240 Gross per 24 hour Intake 50 ml Output 2370 ml Net -2320 ml Wt Readings from Last 3 Encounters: 02/20/20 90.7 kg (199 lb 15.3 oz) 02/06/20 92 kg (202 lb 13.2 oz) 02/06/20 92.1 kg (203 lb 1.6 oz) Admission Weight: Weight: 90 kg (198 lb 6.6 oz) PHYSICAL EXAM Physical Exam Constitutional: He is oriented to person, place, and time. He appears well-developed and we ll-nourished. HENT: Head: Normocephalic and atraumatic. Eyes: Pupils are equal, round, and reactive to light. Neck: Neck supple. Cardiovascular: Normal rate, regular rhythm, normal heart sounds and intact distal pulses. Pulmonary/Chest: Effort normal and breath sounds normal. Abdominal: Soft. Bowel sounds are normal. Musculoskeletal: Normal range of motion. Neurological: He is alert and oriented to person, place, and time. Skin: Skin is warm and dry. Recent Labs 02/19/20 1259 02/19/20 0606 02/18/20 0428 WBC -- 9.99 11.34* HCT -- 32.1* 30.3* PLT -- 356 288 NA -- 139 139 K 3.5 3.7 4.6 CL -- 107 107 CO2 -- 27 29 BUN -- 11 11 CREA -- 0.70 0.70 GLU -- 149* 149* CALCIUM -- 8.8 8.6 Scheduled Meds: acetaminophen 1,000 mg Oral Q8H aspirin 81 mg Oral Daily atorvaSTATin 80 mg Oral Nightly clopidogrel 75 mg Oral Daily docusate sodium 100 mg Oral BID famotidine 20 mg Oral BID furosemide 40 mg Oral BID (8 and 16) influenza quadrivalent 0.5 mL Intramuscular One Time Vaccine insulin detemir 18 Units Subcutaneous Q24H insulin lispro 1-7 Units Subcutaneous Nightly insulin lispro 2-14 Units Subcutaneous TID WC insulin lispro 5 Units Subcutaneous TID WC magnesium hydroxide 30 mL Oral Nightly metoprolol tartrate 37.5 mg Oral BID tamsulosin 0.4 mg Oral Daily after breakfast IV Meds: dexmedetomidine Stopped (02/17/20 0735) dextrose 10% dextrose 5% and sodium chloride 0.45% Stopped (02/17/20 180) insulin regular Stopped (02/17/20 180) sodium chloride 0.9% 30 mL/hr at 02/16/20 0803 Imaging: Xr Chest Ap Portable Result Date: 02/19/2020 CHEST PORTABLE ONE VIEW CLINICAL INFORMATION: Post open heart surgery. COMPARISON: XR CHEST AP PORTABLE (02/18/2020); XR CHEST AP PORTABLE (02/17/2020); XR CHEST AP PORTABLE (02/16/2020) ; FINDINGS/IMPRESSION: 1. No lines or support devices. 2. Low lung volume with stable bibasi lar airspace opacities likely combination of pleural effusions and atelectasis 3. Cardiomedi astinal contours are stable. Intact sternotomy wires. 4. No pneumothorax. Subtle vertical linear lucency overlying the right hemithorax is likely artifactual. Final Report Signed by: Juan M Thorpe Tyson Sign Date/Time: 02/19/2020 6:19 AM Xr Chest Ap Portable Result Date: 02/18/2020 CHEST PORTABLE ONE VIEW CLINICAL INFORMATION: Post open heart surgery. COMPARISON: XR CHEST AP PORTABLE (02/17/2020); XR CHEST AP PORTABLE (02/16/2020); XR CHEST AP PORTABLE (02/15/2020) ; FINDINGS/IMPRESSION: 1. Right IJ CV line removed. Mediastinal drain and left chest tube r emoved. 2. Right basilar hazy opacity representing some combination of pleural effusion, charleen ma, atelectasis or consolidation unchanged. No new pulmonary opacities. Stable lung volume s. 3. Cardiomediastinal contours are stable. 4. No pneumothorax. Final Report Signed by: Cooper velazquez M.D., Richard Sign Date/Time: 02/18/2020 6:44 AM [facility] [address], [address] [address] Portions of this chart may have been created with [employer] voice recognition software. Occasi onal wrong-word or sound-alike substitutions may have occurred due to the inherent orr itations of voice recognition software. Please read the chart carefully and recognize, using context, where these substitutions have occurred. Associated attestation - Cj Faustin MD - 02/20/2020 8:40 AM PDTPatient was seen, exami tash, labs, x-rays, treatment plan reviewed. Confusion resolved DC planning Olya Grover, RD - 02/19/2020 11:21 AM PDT NUTRITION NOTE Summary Assessment triggered per protocol to monitor recovery post-op CABG and offer diet education for lifestyle change. Per RN, pt ready for education. Pt dozing in chair, awakens to yoavic e, agreeable to interview. Pt reports "rents a room to Thien rodriguez". When asked if Thien can shop and cook for him, pt reports "Thien will help me". Pt accepted handout from [place] for [facility] Consistent Carbohydrate Nutrition Therapy - pt asked to review another time. Of concern is pt's hemoglobin A1c - was >9 last October, and josiah to >12 when checked this adm it. Pt denies taking any medication or limiting CHO or taking any action at all to control BGs. Pt has been getting supplemental insulin for BG control post-op, of which he has neede d more d/t pt's increased oral intake - important for pt to get his nutrition for healing as well. Fluid/Beverage Intake Oral Fluids Amount: ad lei Food Intake Type of Food/Meals: Current active diet order is: Diet Diet fat and cholesterol modified; consistent carbohydrate; Effective Now Amount of Food: 75-100% meals today - pt reports appetite has improved Nourishments: indicated - pt scheduled to receive Boost Glucose Control TID w/meals Nutrition-Focused Physical Findings Overall Appearance: overweight Body Language: alert but reporting fatigue Extremities, Muscles and Bones: no edema Digestive System (Mouth to Rectum): no chew/swallow deficit; last BM Type 1 today Nerves and Cognition: A&O x 4, calm, sleepy, but cooperative Skin: incisions from recent surgery; NPWT in place Anthropometrics Current Weight: 97.5 kg (214 lb 15.2 oz) Admit Weight: 90 kg (198 lb 6.6 oz) Biochemical Data, Medical Test, and Procedures Recent Labs 02/19/20 1259 02/19/20 0606 NA -- 139 K 3.5 3.7 GLU -- 149* BUN -- 11 CREA -- 0.70 MG -- 1.9 Nutrition Diagnosis No nutrition dx at this time. Recommendations Agree with recommendation to discharge to SNF. Pt's plan for home care (Thien rodriguez) does n ot sound safe. Continue current diet as Rx'd. Consider [employer] consult to addres s pt's uncontrolled hyperglycemia before discharge as this can affect healing. Will f/u bef ore discharge to see if pt would like to review diet. Following with team. Nutritional Risk Required Follow Up: (LM 02/25/2020) Olya Grover RD 02/19/2020 11:21 AM PDT Gary Viveros MD - 8:21 AM PDT [facility] Service: Cardiology Progress Note Name of Township Clerk: Gary Aevry MD I have seen the patient on 02/19/2020 SUBJECTIVE He feels overall well. Stable blood pressure and heart rate. Stable hemoglobin. Normal creatinine. Medications were reviewed. OBJECTIVE Vital Signs: BP 132/62 | Pulse 99 | Temp 36.5 C (97.7 F) (Oral) | Resp 20 | Ht 1.829 m (6') | W t 97.5 kg (214 lb 15.2 oz) | SpO2 97% | BMI 29.15 kg/m Cardiovascular: Regular rhythm, S1 normal and S2 normal. No murmur heard. Pulses: Radial pulses are 2+ on the right side, and 2+ on the left side. Pulmonary/Chest: Decrease air entry on bilateral bases. No added sounds. Abdominal: Soft. No tenderness. Musculoskeletal: No edema. Neurological: Alert. No cranial nerve deficit. Skin: Warm and dry. DATA Recent Labs Lab 02/19/20 0606 NA 139 K 3.7 CO2 27 BUN 11 CALCIUM 8.8 MG 1.9 Recent Labs Lab 02/19/20 0606 WBC 9.99 HGB 10.6* HCT 32.1* MCV 87.2 PLT 356 EKG: February 14, 2020, reviewed personally on February 15, 2020. Sinus rhythm, heart rate 94 , normal axis, normal QRS voltage in duration, normal ST-T segment. November 10, 2019, reviewed personally on November 10, 2019. Normal ECG. Sinus rhythm, heart ra te 67. November 09, 2019, reviewed personally on November 09, 2019. Sinus rhythm, heart rate 70, normal axis, normal P wave and MD interval, inferior ST elevation. Last Echo: November 10, 2019. EF 60 to 65%. Mild concentric left ventricular hypertrophy. Moderate h ypokinesia of the basal to mid inferolateral wallandbasal inferior wall. No significan t valvular disorders. Last stress test: Last cath: November 09, 2019. Three-vessel disease, including bifurcating proximal LAD. 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 Angioplasty for the right AV groove artery with a Synergy 2.5 x 24 mm. Carotid US: AAA screening: Lower extremity US: OTHERS: ASSESSMENT & PLAN Miles Ash Jr. is 64 y.o. gentleman with the following medical conditions: 1. Hypertension 2. Diabetes, on oral hypoglycemic medications 3. Coronary artery disease November 09, 2019, inferior STEMI. Heart catheterization showed three-vessel disease. Eunice oplasty for the right AV groove artery with a Synergy 2.5 x 24 mm. 4. Stroke, 2012, full recovery 5. Current smoker, 1 pack every day. Presented on February 14, 2020 for bypass surgery. CABG x3, FERNANDEZ to the LAD, SVG to the diagonal, SVG to the second obtuse marginal. Recommendations Continue aspirin and clopidogrel. Continue high intensity statins. Start diuresis with furosemide 40 mg twice a day. Code Status: Full Code Gary Avery MD 02/19/2020 Jamal Sanchez P A - 02/19/2020 7:35 AM PDT [facility] Daily Progress Note 02/19/2020 NAME/AGE/: Miles Ash Jr. 64 y.o. male (1955) ADMISSION DATE: 02/14/2020 HOSPITAL COURSE 5 Days Post-Op Hospital Day: 6 No notes on file Active Hospital Problems Diagnosis CAD in [place] artery Diabetes mellitus Resolved Hospital Problems No resolved problems to display. ASSESSMENT / PLAN 1. S/P CABG x 3 POD 5 2. Mentally clearing by the day. 3. Will uptitrate BBlocker to assist w rate control. Remains SR 4. CT's and PW's are removed. Disposition: - Anticipate discharge in 1-2 days to: Home vs rehab. SUBJECTIVE Mr. Ash is conversive and pleasant this am. No issues overnight. OBJECTIVE Last Vitals: Pulse: 88 BP: 142/66 Resp: 20 on SpO2: 92 % on room air Temp: 36.8 C (98.3 F) Telemetry: SR 24 hour I/O: Weight: Intake/Output Summary (Last 24 hours) at 02/19/2020 0735 Last data filed at 02/18/2020 2330 Gross per 24 hour Intake 805 ml Output 1825 ml Net -1020 ml Wt Readings from Last 3 Encounters: 02/17/20 97.5 kg (214 lb 15.2 oz) 02/06/20 92 kg (202 lb 13.2 oz) 02/06/20 92.1 kg (203 lb 1.6 oz) Admission Weight: Weight: 90 kg (198 lb 6.6 oz) PHYSICAL EXAM Physical Exam Constitutional: He is oriented to person, place, and time. He appears well-developed and we ll-nourished. HENT: Head: Normocephalic and atraumatic. Eyes: Pupils are equal, round, and reactive to light. Neck: Neck supple. Cardiovascular: Normal rate, regular rhythm, normal heart sounds and intact distal pulses. Pulmonary/Chest: Effort normal and breath sounds normal. Abdominal: Soft. Bowel sounds are normal. Musculoskeletal: Normal range of motion. Neurological: He is alert and oriented to person, place, and time. Skin: Skin is warm and dry. Recent Labs 02/19/20 0606 02/18/20 0428 02/17/20 0310 WBC 9.99 11.34* 10.49 HCT 32.1* 30.3* 26.5* PLT 356 288 185 NA 139 139 136 K 3.7 4.6 3.9 CL 107 107 108 CO2 27 29 25 BUN 11 11 10 CREA 0.70 0.70 0.63* GLU 149* 149* 101* CALCIUM 8.8 8.6 8.0* Scheduled Meds: acetaminophen 1,000 mg Oral Q8H aspirin 81 mg Oral Daily atorvaSTATin 80 mg Oral Nightly clopidogrel 75 mg Oral Daily docusate sodium 100 mg Oral BID famotidine 20 mg Oral BID influenza quadrivalent 0.5 mL Intramuscular One Time Vaccine insulin detemir 18 Units Subcutaneous Q24H insulin lispro 1-7 Units Subcutaneous Nightly insulin lispro 2-14 Units Subcutaneous TID WC insulin lispro 5 Units Subcutaneous TID WC magnesium hydroxide 30 mL Oral Nightly metoprolol tartrate 25 mg Oral BID tamsulosin 0.4 mg Oral Daily after breakfast IV Meds: dexmedetomidine Stopped (02/17/20 0735) dextrose 10% dextrose 5% and sodium chloride 0.45% Stopped (02/17/20 180) insulin regular Stopped (02/17/20 180) sodium chloride 0.9% 30 mL/hr at 02/16/20 0803 Imaging: Xr Chest Ap Portable Result Date: 02/19/2020 CHEST PORTABLE ONE VIEW CLINICAL INFORMATION: Post open heart surgery. COMPARISON: XR CHEST AP PORTABLE (02/18/2020); XR CHEST AP PORTABLE (02/17/2020); XR CHEST AP PORTABLE (02/16/2020) ; FINDINGS/IMPRESSION: 1. No lines or support devices. 2. Low lung volume with stable bibasi lar airspace opacities likely combination of pleural effusions and atelectasis 3. Cardiomedi astinal contours are stable. Intact sternotomy wires. 4. No pneumothorax. Subtle vertical linear lucency overlying the right hemithorax is likely artifactual. Final Report Signed by: Juan M Thorpe Tyson Sign Date/Time: 02/19/2020 6:19 AM Xr Chest Ap Portable Result Date: 02/18/2020 CHEST PORTABLE ONE VIEW CLINICAL INFORMATION: Post open heart surgery. COMPARISON: XR CHEST AP PORTABLE (02/17/2020); XR CHEST AP PORTABLE (02/16/2020); XR CHEST AP PORTABLE (02/15/2020) ; FINDINGS/IMPRESSION: 1. Right IJ CV line removed. Mediastinal drain and left chest tube r emoved. 2. Right basilar hazy opacity representing some combination of pleural effusion, charleen ma, atelectasis or consolidation unchanged. No new pulmonary opacities. Stable lung volume s. 3. Cardiomediastinal contours are stable. 4. No pneumothorax. Final Report Signed by: Cooper velazquez M.D., Richard Sign Date/Time: 02/18/2020 6:44 AM [facility] [address] [place] [address] Portions of this chart may have been created with [employer] voice recognition software. Occasi onal wrong-word or sound-alike substitutions may have occurred due to the inherent orr itations of voice recognition software. Please read the chart carefully and recognize, using context, where these substitutions have occurred. Associated attestation - Cj Faustin MD - 02/19/2020 7:47 AM PDTPatient was seen, exami tash, labs, x-rays, treatment plan reviewed. Mental status clearing Home Carlos Contreras, PT, DPT - 02/18/2020 2:11 PM PDTFormatting of this note migh t be different from the original. 02/18/20 1411 PT Visit Summary PT Visit Type Missed Visit (patient unavailable) Next Visit Information 02/17, Cardiac, HPW, progress towards FWW if safe/appropriate PT Visit Summary Having OT assessment at this time Jamal Sanchez PA - 02/18/2020 10:10 AM PDTFormatting of this note might be different from the or iginal. [facility] Daily Progress Note 02/18/2020 NAME/AGE/: Miles Ash Jr. 64 y.o. male (1955) ADMISSION DATE: 02/14/2020 HOSPITAL COURSE 4 Days Post-Op Hospital Day: 5 No notes on file Active Hospital Problems Diagnosis CAD in [place] artery Diabetes mellitus Resolved Hospital Problems No resolved problems to display. ASSESSMENT / PLAN 1. S/P CABG x 3 POD [address] and PW's out yd. 3. Pt remains intermittently impulsive. Crawling out of bed. He is lucid now and reports he will be cooperative with staff. 4. HD stable in SR. Disposition: - Anticipate discharge in 1-2 days to: rehab. SUBJECTIVE Mr. Ash is ok now. He did crawl/fall out of bed this a.m His sternum seems to be ok OBJECTIVE Last Vitals: Pulse: 96 BP: 146/67 Resp: 24 on SpO2: 96 % on nasal cannula Temp: 36.9 C (98.4 F) Telemetry: normal sinus 24 hour I/O: Weight: Intake/Output Summary (Last 24 hours) at 02/18/2020 1011 Last data filed at 02/18/2020 0715 Gross per 24 hour Intake 1250 ml Output 1700 ml Net -450 ml Wt Readings from Last 3 Encounters: 02/17/20 97.5 kg (214 lb 15.2 oz) 02/06/20 92 kg (202 lb 13.2 oz) 02/06/20 92.1 kg (203 lb 1.6 oz) Admission Weight: Weight: 90 kg (198 lb 6.6 oz) PHYSICAL EXAM Physical Exam Constitutional: He is oriented to person, place, and time. He appears well-developed and we ll-nourished. HENT: Head: Normocephalic and atraumatic. Eyes: Pupils are equal, round, and reactive to light. Neck: Neck supple. Cardiovascular: Normal rate, regular rhythm, normal heart sounds and intact distal pulses. Pulmonary/Chest: Effort normal and breath sounds normal. Abdominal: Soft. Bowel sounds are normal. Musculoskeletal: Normal range of motion. Neurological: He is alert and oriented to person, place, and time. Skin: Skin is warm and dry. Recent Labs 02/18/20 0428 02/17/20 0310 02/16/20 2048 02/16/20 0308 WBC 11.34* 10.49 -- -- 13.74* HCT 30.3* 26.5* -- -- 29.0* PLT 288 185 -- -- 197 NA 139 136 -- -- 137 K 4.6 3.9 4.0 < > 3.8 CL 107 108 -- -- 109 CO2 29 25 -- -- 27 BUN 11 10 -- -- 8 CREA 0.70 0.63* -- -- 0.65* GLU 149* 101* -- -- 112* CALCIUM 8.6 8.0* -- -- 7.9* < > = values in this interval not displayed. Scheduled Meds: acetaminophen 1,000 mg Oral Q8H aspirin 81 mg Oral Daily atorvaSTATin 80 mg Oral Nightly clopidogrel 75 mg Oral Daily docusate sodium 100 mg Oral BID famotidine 20 mg Oral BID influenza quadrivalent 0.5 mL Intramuscular One Time Vaccine insulin detemir 18 Units Subcutaneous Q24H insulin lispro 1-7 Units Subcutaneous Nightly insulin lispro 2-14 Units Subcutaneous TID WC insulin lispro 5 Units Subcutaneous TID WC magnesium hydroxide 30 mL Oral Nightly metoprolol tartrate 25 mg Oral BID tamsulosin 0.4 mg Oral Daily after breakfast IV Meds: dexmedetomidine Stopped (02/17/20 0735) dextrose 10% dextrose 5% and sodium chloride 0.45% Stopped (02/17/20 180) insulin regular Stopped (02/17/20 180) sodium chloride 0.9% 30 mL/hr at 02/16/20 0803 Imaging: Xr Chest Ap Portable Result Date: 02/18/2020 CHEST PORTABLE ONE VIEW CLINICAL INFORMATION: Post open heart surgery. COMPARISON: XR CHEST AP PORTABLE (02/17/2020); XR CHEST AP PORTABLE (02/16/2020); XR CHEST AP PORTABLE (02/15/2020) ; FINDINGS/IMPRESSION: 1. Right IJ CV line removed. Mediastinal drain and left chest tube r emoved. 2. Right basilar hazy opacity representing some combination of pleural effusion, charleen ma, atelectasis or consolidation unchanged. No new pulmonary opacities. Stable lung volume s. 3. Cardiomediastinal contours are stable. 4. No pneumothorax. Final Report Signed by: Cooper velazquez M.D., Richard Sign Date/Time: 02/18/2020 6:44 AM Xr Chest Ap Portable Result Date: 02/17/2020 CHEST PORTABLE ONE VIEW CLINICAL INFORMATION: Post open heart surgery. COMPARISON: XR CHEST AP PORTABLE (02/16/2020); XR CHEST AP PORTABLE (02/15/2020); XR CHEST AP PORTABLE (02/14/2020) ; FINDINGS/IMPRESSION: 1. Stable right IJ sheath and mediastinal drainage catheter. Stable midline sternotomy. 2. Lung volumes remain low with persistent ground-glass right basilar op acity suggesting a combination of small effusion and underlying atelectasis/consolidation. No significant interval change. 3. Cardiomediastinal contours are stable. 4. No pneumothorax . Final Report Signed by: Jagdish Rojas Sadaf Sign Date/Time: 02/17/2020 6:38 AM [facility] [address] [place] [address] Portions of this chart may have been created with [employer] voice recognition software. Occasi onal wrong-word or sound-alike substitutions may have occurred due to the inherent orr itations of voice recognition software. Please read the chart carefully and recognize, using context, where these substitutions have occurred. Aron Jasso RN - 02/18/2020 12:35 AM [id number]- Care of pt assumed from RADHA Nixon. Report received. Pt asse ssment performed. VS stable. Wound vac in place. Bed in low, locked position with side rails up per protocol. Bed alarm broken (metal bent). RN asked POOL TABLE OPERATOR to place tab alarm under pt in bed (RN transfusing blood and placing soliman on other pts). Pt talks to himself when marina g to sleep. When asked about this, pt states he talks himself to sleep. Jamal Sanchez PA - 02/17/2020 8:3 0 AM PDT [facility] Daily Progress Note 02/17/2020 NAME/AGE/: Miles Ash Jr. 64 y.o. male (1955) ADMISSION DATE: 02/14/2020 HOSPITAL COURSE 3 Days Post-Op Hospital Day: 4 No notes on file Active Hospital Problems Diagnosis CAD in [place] artery Diabetes mellitus Resolved Hospital Problems No resolved problems to display. ASSESSMENT / PLAN 1. S/P CABG x 3 POD [address]/PWs today DC central line 3. Minimize sedation and increase mobility 4. Increase metoprolol to 25mg bid Disposition: - Anticipate discharge next week to: rehab. SUBJECTIVE Mr. Ash is sleepy this am. HD ok. CT output decreasing. Serous effluent OBJECTIVE Last Vitals: Pulse: 70 BP: 110/62 Resp: 18 on SpO2: 91 % on nasal cannula Temp: 37.2 C (98.9 F) Telemetry: normal sinus 24 hour I/O: Weight: Intake/Output Summary (Last 24 hours) at 02/17/2020 0830 Last data filed at 02/17/2020 0650 Gross per 24 hour Intake 1775.8 ml Output 1830 ml Net -54.2 ml Wt Readings from Last 3 Encounters: 02/17/20 98 kg (216 lb 0.8 oz) 02/06/20 92 kg (202 lb 13.2 oz) 02/06/20 92.1 kg (203 lb 1.6 oz) Admission Weight: Weight: 90 kg (198 lb 6.6 oz) PHYSICAL EXAM Physical Exam Constitutional: He is oriented to person, place, and time. He appears well-developed and we ll-nourished. oversedated HENT: Head: Normocephalic and atraumatic. Eyes: Pupils are equal, round, and reactive to light. Neck: Neck supple. Cardiovascular: Normal rate, regular rhythm, normal heart sounds and intact distal pulses. Pulmonary/Chest: Effort normal and breath sounds normal. Abdominal: Soft. Bowel sounds are normal. Musculoskeletal: Normal range of motion. Neurological: He is alert and oriented to person, place, and time. Skin: Skin is warm and dry. Recent Labs 02/17/20 0310 02/16/20 2048 02/16/20 0950 02/16/20 0308 02/15/20 0349 02/14/20 1230 WBC 10.49 -- -- 13.74* -- 14.51* -- 23.13* HCT 26.5* -- -- 29.0* -- 27.9* -- 32.4* PLT 185 -- -- 197 -- 220 -- 152 NA 136 -- -- 137 -- 144 -- 141 K 3.9 4.0 3.9 3.8 < > 4.0 < > 4.3 CL 108 -- -- 109 -- 115* -- 114* CO2 25 -- -- 27 -- 25 -- 25 BUN 10 -- -- 8 -- 9 -- 12 CREA 0.63* -- -- 0.65* -- 0.73 -- 0.83 GLU 101* -- -- 112* -- 93 -- 142* CALCIUM 8.0* -- -- 7.9* -- 7.1* -- 7.2* INR -- -- -- -- -- -- -- 1.2 < > = values in this interval not displayed. Scheduled Meds: acetaminophen 1,000 mg Oral Q8H aspirin 81 mg Oral Daily atorvaSTATin 80 mg Oral Nightly clopidogrel 75 mg Oral Daily docusate sodium 100 mg Oral BID famotidine 20 mg Oral BID influenza quadrivalent 0.5 mL Intramuscular One Time Vaccine magnesium hydroxide 30 mL Oral Nightly metoprolol tartrate 12.5 mg Oral BID tamsulosin 0.4 mg Oral Daily after breakfast IV Meds: dexmedetomidine Stopped (02/17/20 0735) dextrose 5% and sodium chloride 0.45% 50 mL/hr at 02/16/20 08 insulin regular 1.4 Units/hr (02/16/202) sodium chloride 0.9% 30 mL/hr at 02/16/20 0803 Imaging: Xr Chest Ap Portable Result Date: 02/17/2020 CHEST PORTABLE ONE VIEW CLINICAL INFORMATION: Post open heart surgery. COMPARISON: XR CHEST AP PORTABLE (02/16/2020); XR CHEST AP PORTABLE (02/15/2020); XR CHEST AP PORTABLE (02/14/2020) ; FINDINGS/IMPRESSION: 1. Stable right IJ sheath and mediastinal drainage catheter. Stable midline sternotomy. 2. Lung volumes remain low with persistent ground-glass right basilar op acity suggesting a combination of small effusion and underlying atelectasis/consolidation. No significant interval change. 3. Cardiomediastinal contours are stable. 4. No pneumothorax . Final Report Signed by: Jagdish Rojas Sadaf Sign Date/Time: 02/17/2020 6:38 AM Xr Chest Ap Portable Result Date: 02/16/2020 CHEST PORTABLE ONE VIEW CLINICAL INFORMATION: Post open heart surgery. COMPARISON: XR CHEST AP PORTABLE (02/15/2020); XR CHEST AP PORTABLE (02/14/2020); XR CHEST 2 VIEWS (02/06/2020); FI NDINGS/IMPRESSION: 1. Lines and support devices are unchanged in position. 2. New right basi lar ground-glass opacity which most likely reflects layering effusion versus edema. Mild le ft basilar atelectasis. 3. Cardiomediastinal contours are stable. 4. No pneumothorax. Final Report Signed by: Jagdish Edgar James Sign Date/Time: 02/16/2020 6:25 AM [facility] [address] [place] [address] Portions of this chart may have been created with [employer] voice recognition software. Occasi onal wrong-word or sound-alike substitutions may have occurred due to the inherent orr itations of voice recognition software. Please read the chart carefully and recognize, using context, where these substitutions have occurred. Celio Frye PA - 02/16/2020 8:16 AM PDT [facility] Service: Cardiothoracic Surgery Progress Note ROOM: Critical access hospital/[id number] Hospital Day: LOS: 2 days Post-Op Day: 2 Days Post-Op Surgery/Procedure: 02/14/2020, Dr Faustin 1. Coronary artery bypass grafting times 3; left internal mammary artery to left anterior descending; saphenous vein graft to diagonal; saphenous vein graft to obtuse marginal 2. 2. Endovascular vein harvesting. SUBJECTIVE Events Overnight: HD stable off all vasoactive gtts, on 4L NC. UOP: 1.5L/24hs CT Output: 195mL/overnight, 505mL/24hrs OBJECTIVE Vital Signs: BP 100/56 | Pulse 81 | Temp 37.3 C (99.1 F) (Oral) | Resp 18 | Ht 1.829 m (6') | W t 98.7 kg (217 lb 9.5 oz) | SpO2 90% | BMI 29.51 kg/m Current weight: Patient Vitals for the past 96 hrs: Weight 02/16/20 0530 98.7 kg (217 lb 9.5 oz) 02/15/20 2215 98.1 kg (216 lb 4.3 oz) 02/15/20 0400 94 kg (207 lb 3.7 oz) 02/14/20 0619 90 kg (198 lb 6.6 oz) Admission weight: Weight: 90 kg (198 lb 6.6 oz) Physical Exam: General: Alert, oriented, in no acute distress, resting in chair Heart: RRR No murmur Lungs: CTA b/l Dim bases. Abdomen: Soft, nondistended, nontender Extremities: Well perfused, +1 LE edema Musculoskeletal: no deformities or significant abnormalities Neurological: No gross focal motor or sensory deficits Skin: No rash or lesions. Mid-sternal incision dressing is C/D/I. Chest tube present inci tanika C/D/I. Pacing wires present EVH incisions C/D/I. DATA: Scheduled Medications acetaminophen 1,000 mg Oral Q8H aspirin 81 mg Oral Daily atorvaSTATin 80 mg Oral Nightly clopidogrel 75 mg Oral Daily docusate sodium 100 mg Oral BID famotidine 20 mg Oral BID magnesium hydroxide 30 mL Oral Nightly metoprolol tartrate 12.5 mg Oral BID tamsulosin 0.4 mg Oral Daily after breakfast Continuous Infusions dexmedetomidine Stopped (02/16/20 0550) dextrose 5% and sodium chloride 0.45% 50 mL/hr at 02/16/20 0803 EPINEPHrine infusion Stopped (02/14/20 1230) insulin regular 3 Units/hr (02/16/20 0803) nitroglycerin in dextrose 5 mcg/min (02/16/20 0020) phenylephrine Stopped (02/15/20 1950) sodium chloride 0.9% 30 mL/hr at 02/16/20 0803 vasopressin (VASOSTRICT) infusion (shock) Stopped (02/14/20 1300) PRN Medications albuterol, aspirin, bisacodyl, calcium gluconate IVPB, dextrose 10%, dextrose, HYDROmorphon e, HYDROmorphone, insulin regular, Magnesium replacement - ICU AND magnesium sulfate A ND magnesium sulfate, menthol throat lozenges, meperidine, ondansetron, oxyCODONE, phenol, polyethylene glycol, Potassium replacement - ICU AND potassium chloride AND potassi um chloride AND potassium chloride HOME MEDS: Prior to Admission medications Medication Sig Start Date End Date Taking? Authorizing Provider aspirin 81 mg chewable tablet Chew and swallow 1 tablet (81 mg total) Daily 11/11/19 11/10/20 Yes Gary Avery MD atorvaSTATin (LIPITOR) 80 MG tablet Take 1 tablet (80 mg total) by mouth nightly 11/10/19 Yes Gary Avery MD clopidogrel (PLAVIX) 75 mg tablet Take 1 tablet (75 mg total) by mouth Daily 11/11/19 1 Yes Gary Avery MD lisinopril (PRINIVIL, ZESTRIL) 10 mg tablet Take 1 tablet (10 mg total) by mouth Daily 11/1011/10/20 Yes Gary Avery MD metoprolol succinate (TOPROL-XL) 50 mg 24 hr tablet Take 1 tablet (50 mg total) by mouth Da wili 11/11/19 11/10/20 Yes Gary Avery MD nitroglycerin (NITROSTAT) 0.[address] 1 tablet (0.4 mg total) under the tongue e very 5 minutes as needed for Chest pain Patient not taking: Reported on 02/14/2020. 11/10/19 11/09/20 Gary Avery MD LABS: Recent Results (from the past 24 hour(s)) POC Glucose Result Value Ref Range Glucose, POC 104 (H) 65 - 99 mg/dL POC Glucose Result Value Ref Range Glucose, POC 110 (H) 65 - 99 mg/dL POC Glucose Result Value Ref Range Glucose, POC 116 (H) 65 - 99 mg/dL POC Glucose Result Value Ref Range Glucose, POC 103 (H) 65 - 99 mg/dL POC Glucose Result Value Ref Range Glucose, POC 124 (H) 65 - 99 mg/dL POC Glucose Result Value Ref Range Glucose, POC 121 (H) 65 - 99 mg/dL Potassium Result Value Ref Range K 3.9 3.5 - 4.9 mmol/L Magnesium Result Value Ref Range Magnesium 2.2 1.7 - 2.4 mg/dL Phosphorus Result Value Ref Range Phosphorus 2.1 (L) 2.3 - 4.8 mg/dL POC Glucose Result Value Ref Range Glucose, POC 121 (H) 65 - 99 mg/dL POC Glucose Result Value Ref Range Glucose, POC 169 (H) 65 - 99 mg/dL POC Glucose Result Value Ref Range Glucose, POC 136 (H) 65 - 99 mg/dL POC Glucose Result Value Ref Range Glucose, POC 116 (H) 65 - 99 mg/dL POC Glucose Result Value Ref Range Glucose, POC 142 (H) 65 - 99 mg/dL POC Glucose Result Value Ref Range Glucose, POC 115 (H) 65 - 99 mg/dL Basic Metabolic Panel Result Value Ref Range Na 137 135 - 145 mmol/L K 3.8 3.5 - 4.9 mmol/L Cl 109 99 - 109 mmol/L CO2 27 23 - 32 mmol/L Anion Gap 5 5 - 20 mmol/L Glucose 112 (H) 65 - 99 mg/dL BUN 8 8 - 25 mg/dL Creatinine 0.65 (L) 0.70 - 1.30 mg/dL BUN/Creatinine Ratio 12 Calcium 7.9 (L) 8.5 - 10.5 mg/dL Estimated GFR >60 >60 mL/min/1.73m2 CBC with Differential Result Value Ref Range WBC 13.74 (H) 3.80 - 11.00 K/uL Red Blood Cells 3.14 (L) 4.20 - 5.70 M/uL Hemoglobin 9.4 (L) 13.2 - 17.0 g/dL Hematocrit 29.0 (L) 39.0 - 50.0 % MCV 92.4 80.0 - 100.0 fl MCH 29.9 27.0 - 34.0 pg MCHC 32.4 32.0 - 35.5 g/dL RDW-SD 48.3 37 - 53 fl Platelet Count 197 150 - 400 K/uL MPV 10.4 fl Diff Type AUTOMATED % nRBC 0.0 0 /100WBC % Neutrophils 76.60 % IMMATURE GRANULOCYTE 0.50 % % Lymphocytes 13.00 % Monocyte % 9.50 % Eosinophils % 0.30 % Basophils % 0.10 % Neutrophils, Absolute 10.52 (H) 1.90 - 7.40 K/uL IMMATURE GRANS AB 0.07 0.00 - 0.07 K/uL Absolute Lymphocytes 1.78 1.00 - 3.90 K/uL Absolute Monocytes 1.31 (H) 0.00 - 0.80 K/uL Eosinophils, Absolute 0.04 0.00 - 0.50 K/uL Basophils, Absolute 0.02 0.00 - 0.10 K/uL Magnesium Result Value Ref Range Magnesium 2.1 1.7 - 2.4 mg/dL POC Glucose Result Value Ref Range Glucose, POC 118 (H) 65 - 99 mg/dL POC Glucose Result Value Ref Range Glucose, POC 119 (H) 65 - 99 mg/dL POC Glucose Result Value Ref Range Glucose, POC 138 (H) 65 - 99 mg/dL PROBLEM LIST Principal Problem: CAD in [place] artery Active Problems: Diabetes mellitus ASSESSMENT & PLAN S/P CABG -Continue ASA, Statin, Plavix, BB -Wean O2, encourage IS, ambulate -Continue CTs/TPWs for now DMT2 - A1c 12.1 -Currently on Endotool, transition to sq insulin when stable -DM educator consult Transfer to SDU, PT recommending SNF for discharge Code Status: Full Code The patient has been seen, all new lab results and imaging reviewed, and the plan discussed with the attending provider, WHITNEY Connell 02/16/2020 Associated attestation - Cj Faustin MD - 02/16/2020 8:45 AM PDTPatient was seen, exami tash, labs, x-rays, treatment plan reviewed. HD-Stable Agitation/Confusion last PM Better on Dex infusion Increase dylanElinor Cruz KELLEY - 02/16/2020 7:33 AM [facility] enter Service: Health And Safety Tech Cardiothoracic Surgery Consult and Follow Up Date/Time:02/16/2020 7:33 AM PDT Provider: KELLEY Middleton Hospital Day: LOS: 2 days Surgery/Procedure: Procedure(s) (LRB): CORONARY ARTERY BYPASS GRAFT (N/A) Post-Op Day: 2 Days Post-Op PROBLEM LIST Principal Problem: CAD in [place] artery Active Problems: Diabetes mellitus Resolved Problems: * No resolved hospital problems. * SUBJECTIVE: Patient Summary: From Dr. Faustin H&P on 02/05: "The patient is 64 y.o. male with significan t past medical history of HTN, DM and ongoing tobacco abuse (40 pack year history) admitted on 11/09/19 with chest pain. He was diagnosed with an acute inferior wall myocardial and unde rwent PCI and stenting of the RPDA branch. The patient has significant residual disease with a marisela grade proximal LAD lesion at a diagonal bifurcation and disease in the circumflex s ystem. Patient has been on plavix therapy." Patient held plavix for 1 week and presented as outpatient on 02/13 for planned CABG with Dr Lucas Faustin ROS: Unable to review due to intubation and mechanical ventilation. ICU Timeline: 02/13- To ICU s/p CABG x 3 + EVH with Dr. Faustin 02/14- working with PT, up to chair. Overnight events - Anxious, chest pain with hypertension requiring precedex. HD stable, SR, off pressors - on 8L NC - UOP 1545 mL, CT output 195mL OBJECTIVE: Vital Signs: BP 90/50 | Pulse 81 | Temp 37.3 C (99.1 F) (Oral) | Resp 24 | Ht 1.829 m (6') | Wt 98.7 kg (217 lb 9.5 oz) | SpO2 92% | BMI 29.51 kg/m EXAM GEN: awake and alert NEURO: PERRLA, EOMI, no facial asymmetry, moving extremities HEENT: sclerae clear, nonicteric, oral mmm, pink, no exudates NECK: supple, trachea midline CV: RRR, S1/S2, no murmur, rub or gallop, peripheral pulses palpable, cap refill brisk CHEST: midline incision with dressing, c/d/i, no erythema or oozing, CT exiting subxiphoid process LUNGS: coarse b/l, no wheezing, rales or rhonchi, symmetric chest expansion, even/unlabored respirations on NC ABD: soft, nondistended, nontender to palpation, no masses EXTR: no edema, clubbing or cyanosis, RLE in triny wrap SKIN: warm, dry, no rash or mottling; no e/o skin breakdown over the occiput, scapulae, elb ows, sacrum or heels LINES/TUBES: PIV, soliman, CT x 2, R IJ cordis, A-line Diagnostic Studies: Available labs and images have been reviewed and will be addressed as indicated in the assessment and plan. ASSESSMENT & PLAN: 1.CAD with hx of inferior STEMI and PCI of the RPDA branch - Medical management per primary service - ASA, clopidogrel, statin. BB on hold while on pr essors. - Post operative management per CTS (chest tubes, pacer wires, gtt management, anticoagulat ion, transfusion) - Ambulate, PT/OT, IS 2. Uncontrolled diabetes mellitus with A1c 12.1 - On Endotool post op. Transition to SSI once stabilizes. - paraeducator consult 3. Tobacco abuse - high school guidance counselor on smoking cessation Disposition: Per cardiothoracic surgery Code Status: Full Code *Please bill 35 minutes of high complexity time spent evaluating the patient, reviewing the data and formulating a plan exclusive of all other procedures. KELLEY Middleton 02/16/2020 7:33 AM PDT Celio Frye PA - 02/15/2020 9:15 AM PDT [facility] Service: Cardiothoracic Surgery Progress Note ROOM: Critical access hospital/[address] [place] [address] Hospital Day: LOS: 1 day Post-Op Day: 1 Day Post-Op Surgery/Procedure: 02/14/2020, Dr Faustin 1. Coronary artery bypass grafting times 3; left internal mammary artery to left anterior descending; saphenous vein graft to diagonal; saphenous vein graft to obtuse marginal 2. 2. Endovascular vein harvesting. SUBJECTIVE Events Overnight: HD stable on SOURAV @ 70. Extubated and on 2L NC. UOP: 4.2L/24hs CT Output: 340mL/overnight, 940mL/24hrs OBJECTIVE Vital Signs: BP 92/54 | Pulse 74 | Temp 37.4 C (99.3 F) | Resp 30 | Ht 1.829 m (6') | Wt 94 kg (207 lb 3.7 oz) | SpO2 93% | BMI 28.11 kg/m Current weight: Patient Vitals for the past 96 hrs: Weight 02/15/20 0400 94 kg (207 lb 3.7 oz) 02/14/20 0619 90 kg (198 lb 6.6 oz) Admission weight: Weight: 90 kg (198 lb 6.6 oz) Physical Exam: General: Alert, oriented, in no acute distress, resting in chair Heart: RRR No murmur Lungs: CTA b/l Dim bases. Abdomen: Soft, nondistended, nontender Extremities: Well perfused, +1 LE edema Musculoskeletal: no deformities or significant abnormalities Neurological: No gross focal motor or sensory deficits Skin: No rash or lesions. Mid-sternal incision dressing is C/D/I. Chest tube present inci tanika C/D/I. Pacing wires present EVH incisions C/D/I. DATA: Scheduled Medications acetaminophen 1,000 mg Oral Q8H aspirin 81 mg Oral Daily atorvaSTATin 80 mg Oral Nightly ceFAZolin 2 g Intravenous Q8H clopidogrel 75 mg Oral Daily docusate sodium 100 mg Oral BID famotidine 20 mg Oral BID magnesium hydroxide 30 mL Oral Nightly metoprolol tartrate 12.5 mg Oral BID Continuous Infusions dexmedetomidine Stopped (02/14/20 1557) dextrose 5% and sodium chloride 0.45% 50 mL/hr at 02/15/20 0343 EPINEPHrine infusion Stopped (02/14/20 1230) insulin regular 1.4 Units/hr (02/15/20 0702) nitroglycerin in dextrose Stopped (02/14/20 1300) phenylephrine 80 mcg/min (02/15/20 0745) sodium chloride 0.9% 30 mL/hr at 02/14/20 1406 vasopressin (VASOSTRICT) infusion (shock) Stopped (02/14/20 1300) PRN Medications albuterol, aspirin, bisacodyl, calcium gluconate IVPB, dextrose 10%, dextrose, HYDROmorphon e, HYDROmorphone, insulin regular, Magnesium replacement - ICU AND magnesium sulfate A ND magnesium sulfate, menthol throat lozenges, meperidine, ondansetron, oxyCODONE, phenol, polyethylene glycol, Potassium replacement - ICU AND potassium chloride AND potassi um chloride AND potassium chloride HOME MEDS: Prior to Admission medications Medication Sig Start Date End Date Taking? Authorizing Provider aspirin 81 mg chewable tablet Chew and swallow 1 tablet (81 mg total) Daily 11/11/19 11/10/20 Yes Gary Avery MD atorvaSTATin (LIPITOR) 80 MG tablet Take 1 tablet (80 mg total) by mouth nightly 11/10/19 Yes Gary Avery MD clopidogrel (PLAVIX) 75 mg tablet Take 1 tablet (75 mg total) by mouth Daily 11/11/19 1 Yes Gary Avery MD lisinopril (PRINIVIL, ZESTRIL) 10 mg tablet Take 1 tablet (10 mg total) by mouth Daily 11/1011/10/20 Yes Gary Avery MD metoprolol succinate (TOPROL-XL) 50 mg 24 hr tablet Take 1 tablet (50 mg total) by mouth Da wiil 11/11/19 11/10/20 Yes Gary Avery MD nitroglycerin (NITROSTAT) 0.[address] 1 tablet (0.4 mg total) under the tongue e very 5 minutes as needed for Chest pain Patient not taking: Reported on 02/14/2020. 11/10/19 11/09/20 Gary Avery MD LABS: Recent Results (from the past 24 hour(s)) POC ISTAT, CG8, Arterial Result Value Ref Range pH, Arterial, POC 7.036 (LL) 7.350 - 7.450 pCO2, Arterial 103 (HH) 35 - 45 mmHg pO2, Arterial 564 (HH) 80 - 105 mmHg HCO3, Arterial 28 (H) 22 - 26 mmol/L TCO2, Arterial, POC 31 (H) 23 - 27 mEq/L POC Base Deficit mmol/L 3 (H) 0.0 - 2.0 mmol/L SO2, Arterial, POC 100 (H) 95 - 98 % Sodium, POC 137 135 - 145 mEq/L Potassium, POC 4.4 3.5 - 5.0 mEq/L Ionized Calcium, POC 1.28 1.12 - 1.32 mmol/L Glucose, POC 193 (H) 65 - 99 mg/dL Hematocrit, POC 40 40.0 - 50.0 % Hemoglobin, POC 13.6 (L) 13.7 - 16.7 g/dL POC ISTAT, CG8, Arterial Result Value Ref Range pH, Arterial, POC 7.233 (LL) 7.350 - 7.450 pCO2, Arterial 68 (HH) 35 - 45 mmHg pO2, Arterial 311 (HH) 80 - 105 mmHg HCO3, Arterial 29 (H) 22 - 26 mmol/L TCO2, Arterial, POC 31 (H) 23 - 27 mEq/L Base Excess, POC 1 0 - 3 mEq/L SO2, Arterial, POC 100 (H) 95 - 98 % Sodium, POC 136 135 - 145 mEq/L Potassium, POC 4.0 3.5 - 5.0 mEq/L Ionized Calcium, POC 1.04 (L) 1.12 - 1.32 mmol/L Glucose, POC 147 (H) 65 - 99 mg/dL Hematocrit, POC 29 (L) 40.0 - 50.0 % Hemoglobin, POC 9.9 (L) 13.7 - 16.7 g/dL POC ISTAT, CG8, Venous Result Value Ref Range pH, Venous, POC 7.195 (L) 7.310 - 7.410 PCO2, Venous, POC 71 (H) 41 - 51 mmHG pO2, Venous 56 (H) 30 - 40 mmHG HCO3, Venous 28 23 - 28 mmol/L TCO2, POC 30 (H) 24 - 29 mEq/L POC Base Deficit mmol/L 1 0.0 - 2.0 mmol/L POC SO2.BLDV.QN.(%) 80.0 60 - 85 % Sodium, POC 137 135 - 145 mEq/L Potassium, POC 3.8 3.5 - 5.0 mEq/L Ionized Calcium, POC 1.08 (L) 1.12 - 1.32 mmol/L Glucose, POC 145 (H) 65 - 99 mg/dL Hematocrit, POC 30 (L) 40.0 - 50.0 % Hemoglobin, POC 10.2 (L) 13.7 - 16.7 g/dL POC ISTAT, CG8, Arterial Result Value Ref Range pH, Arterial, POC 7.318 (L) 7.350 - 7.450 pCO2, Arterial 51 (H) 35 - 45 mmHg pO2, Arterial 315 (HH) 80 - 105 mmHg HCO3, Arterial 26 22 - 26 mmol/L TCO2, Arterial, POC 28 (H) 23 - 27 mEq/L Base Excess, POC 0 0 - 3 mEq/L SO2, Arterial, POC 100 (H) 95 - 98 % Sodium, POC 137 135 - 145 mEq/L Potassium, POC 5.0 3.5 - 5.0 mEq/L Ionized Calcium, POC 1.10 (L) 1.12 - 1.32 mmol/L Glucose, POC 143 (H) 65 - 99 mg/dL Hematocrit, POC 26 (L) 40.0 - 50.0 % Hemoglobin, POC 8.8 (L) 13.7 - 16.7 g/dL POC CG 4, ISTAT Arterial Result Value Ref Range pH, Arterial, POC 7.344 (L) 7.350 - 7.450 pCO2, Arterial 49 (H) 35 - 45 mmHg pO2, Arterial 295 (HH) 80 - 105 mmHg Lactate, Arterial, POC 1.75 (H) 0.36 - 1.25 mmol/L HCO3, Arterial 27 (H) 22 - 26 mmol/L TCO2, Arterial, POC 28 (H) 23 - 27 mEq/L Base Excess, POC 1 0 - 3 mEq/L SO2, Arterial, POC 100 (H) 95 - 98 % POC ISTAT, CG8, Arterial Result Value Ref Range pH, Arterial, POC 7.390 7.350 - 7.450 pCO2, Arterial 40 35 - 45 mmHg pO2, Arterial 262 (HH) 80 - 105 mmHg HCO3, Arterial 24 22 - 26 mmol/L TCO2, Arterial, POC 25 23 - 27 mEq/L POC Base Deficit mmol/L 1 0.0 - 2.0 mmol/L SO2, Arterial, POC 100 (H) 95 - 98 % Sodium, POC 138 135 - 145 mEq/L Potassium, POC 5.1 (H) 3.5 - 5.0 mEq/L Ionized Calcium, POC 1.09 (L) 1.12 - 1.32 mmol/L Glucose, POC 160 (H) 65 - 99 mg/dL Hematocrit, POC 26 (L) 40.0 - 50.0 % Hemoglobin, POC 8.8 (L) 13.7 - 16.7 g/dL POC ISTAT, CG8, Arterial Result Value Ref Range pH, Arterial, POC 7.186 (LL) 7.350 - 7.450 pCO2, Arterial 67 (HH) 35 - 45 mmHg pO2, Arterial 406 (HH) 80 - 105 mmHg HCO3, Arterial 25 22 - 26 mmol/L TCO2, Arterial, POC 27 23 - 27 mEq/L POC Base Deficit mmol/L 3 (H) 0.0 - 2.0 mmol/L SO2, Arterial, POC 100 (H) 95 - 98 % Sodium, POC 139 135 - 145 mEq/L Potassium, POC 4.3 3.5 - 5.0 mEq/L Ionized Calcium, POC 1.23 1.12 - 1.32 mmol/L Glucose, POC 174 (H) 65 - 99 mg/dL Hematocrit, POC 27 (L) 40.0 - 50.0 % Hemoglobin, POC 9.2 (L) 13.7 - 16.7 g/dL POC CG 4, ISTAT Arterial Result Value Ref Range pH, Arterial, POC 7.192 (LL) 7.350 - 7.450 pCO2, Arterial 69 (HH) 35 - 45 mmHg pO2, Arterial 380 (HH) 80 - 105 mmHg Lactate, Arterial, POC 1.94 (H) 0.36 - 1.25 mmol/L HCO3, Arterial 27 (H) 22 - 26 mmol/L TCO2, Arterial, POC 29 (H) 23 - 27 mEq/L POC Base Deficit mmol/L 2 0.0 - 2.0 mmol/L SO2, Arterial, POC 100 (H) 95 - 98 % Product: Platelet Pheresis, Leukoreduced Result Value Ref Range Product Code PLATELET GROUP Units ordered 2 BLOOD BANK COMMENT ORDER RECEIVED IN BLOOD BANK. UNIT # [id number] Product Code PAS LR PLATELET,IRR A Unit Division 00 Unit Status ISSUED,FINAL Transfusion Status OK TO TRANSFUSE Testing performed at [address] [address] UNIT # [id number] Product Code PAS LR PLATELET,IRR B Unit Division 00 Unit Status ISSUED,FINAL Transfusion Status OK TO TRANSFUSE POC CG 4, ISTAT Arterial Result Value Ref Range pH, Arterial, POC 7.299 (L) 7.350 - 7.450 pCO2, Arterial 53 (H) 35 - 45 mmHg pO2, Arterial 385 (HH) 80 - 105 mmHg Lactate, Arterial, POC 1.84 (H) 0.36 - 1.25 mmol/L HCO3, Arterial 26 22 - 26 mmol/L TCO2, Arterial, POC 28 (H) 23 - 27 mEq/L POC Base Deficit mmol/L 1 0.0 - 2.0 mmol/L SO2, Arterial, POC 100 (H) 95 - 98 % Basic Metabolic Panel Result Value Ref Range Na 141 135 - 145 mmol/L K 4.3 3.5 - 4.9 mmol/L Cl 114 (H) 99 - 109 mmol/L CO2 25 23 - 32 mmol/L Anion Gap 6 5 - 20 mmol/L Glucose 142 (H) 65 - 99 mg/dL BUN 12 8 - 25 mg/dL Creatinine 0.83 0.70 - 1.30 mg/dL BUN/Creatinine Ratio 14 Calcium 7.2 (L) 8.5 - 10.5 mg/dL Estimated GFR >60 >60 mL/min/1.73m2 CBC with Differential Result Value Ref Range WBC 23.13 (H) 3.80 - 11.00 K/uL Red Blood Cells 3.51 (L) 4.20 - 5.70 M/uL Hemoglobin 10.5 (L) 13.2 - 17.0 g/dL Hematocrit 32.4 (L) 39.0 - 50.0 % MCV 92.3 80.0 - 100.0 fl MCH 29.9 27.0 - 34.0 pg MCHC 32.4 32.0 - 35.5 g/dL RDW-SD 46.9 37 - 53 fl Platelet Count 152 150 - 400 K/uL MPV 10.6 fl Diff Type AUTOMATED % nRBC 0.0 0 /100WBC % Neutrophils 79.30 % IMMATURE GRANULOCYTE 1.30 % % Lymphocytes 11.40 % Monocyte % 7.50 % Eosinophils % 0.30 % Basophils % 0.20 % Neutrophils, Absolute 18.35 (H) 1.90 - 7.40 K/uL IMMATURE GRANS AB 0.29 (H) 0.00 - 0.07 K/uL Absolute Lymphocytes 2.63 1.00 - 3.90 K/uL Absolute Monocytes 1.74 (H) 0.00 - 0.80 K/uL Eosinophils, Absolute 0.08 0.00 - 0.50 K/uL Basophils, Absolute 0.04 0.00 - 0.10 K/uL Fibrinogen Result Value Ref Range Fibrinogen 195 (L) 200 - 450 mg/dL Magnesium Result Value Ref Range Magnesium 2.4 1.7 - 2.4 mg/dL Protime INR Result Value Ref Range INR 1.2 PTT Result Value Ref Range PTT 24 23 - 32 seconds Hemoglobin A1C Result Value Ref Range Hemoglobin A1c 12.1 (H) 4.8 - 5.6 % Calcium, Ionized, Venous Result Value Ref Range Calcium, Ionized 1.12 1.08 - 1.25 mmol/L pH, Venous 7.270 (L) 7.300 - 7.450 POC Glucose Result Value Ref Range Glucose, POC 146 (H) 65 - 99 mg/dL Blood gas, Arterial Result Value Ref Range FiO2, POC 50 % pH, Arterial, POC 7.232 (LL) 7.350 - 7.450 pCO2, Arterial 53 (H) 35 - 45 mmHg pO2, Arterial 88 80 - 105 mmHg HCO3, Arterial 22 22 - 26 mmol/L TCO2, Arterial, POC 24 23 - 27 mEq/L POC Base Deficit mmol/L 5 (H) 0.0 - 2.0 mmol/L SO2, Arterial, POC 95 95 - 98 % ECG 12 lead Result Value Ref Range INTERPRETATION TEXT Not Confirmed POC Glucose Result Value Ref Range Glucose, POC 134 (H) 65 - 99 mg/dL POC Glucose Result Value Ref Range Glucose, POC 131 (H) 65 - 99 mg/dL POC Glucose Result Value Ref Range Glucose, POC 121 (H) 65 - 99 mg/dL Blood gas, Arterial Result Value Ref Range FiO2, POC 40 % pH, Arterial, POC 7.299 (L) 7.350 - 7.450 pCO2, Arterial 44 35 - 45 mmHg pO2, Arterial 77 (L) 80 - 105 mmHg HCO3, Arterial 22 22 - 26 mmol/L TCO2, Arterial, POC 23 23 - 27 mEq/L POC Base Deficit mmol/L 5 (H) 0.0 - 2.0 mmol/L SO2, Arterial, POC 94 (L) 95 - 98 % Potassium Result Value Ref Range K 4.1 3.5 - 4.9 mmol/L POC Glucose Result Value Ref Range Glucose, POC 113 (H) 65 - 99 mg/dL POC Glucose Result Value Ref Range Glucose, POC 115 (H) 65 - 99 mg/dL Potassium Result Value Ref Range K 4.5 3.5 - 4.9 mmol/L POC Glucose Result Value Ref Range Glucose, POC 114 (H) 65 - 99 mg/dL POC Glucose Result Value Ref Range Glucose, POC 100 (H) 65 - 99 mg/dL Potassium Result Value Ref Range K 4.1 3.5 - 4.9 mmol/L POC Glucose Result Value Ref Range Glucose, POC 107 (H) 65 - 99 mg/dL POC Glucose Result Value Ref Range Glucose, POC 96 65 - 99 mg/dL Basic Metabolic Panel Result Value Ref Range Na 144 135 - 145 mmol/L K 4.0 3.5 - 4.9 mmol/L Cl 115 (H) 99 - 109 mmol/L CO2 25 23 - 32 mmol/L Anion Gap 8 5 - 20 mmol/L Glucose 93 65 - 99 mg/dL BUN 9 8 - 25 mg/dL Creatinine 0.73 0.70 - 1.30 mg/dL BUN/Creatinine Ratio 12 Calcium 7.1 (L) 8.5 - 10.5 mg/dL Estimated GFR >60 >60 mL/min/1.73m2 CBC with Differential Result Value Ref Range WBC 14.51 (H) 3.80 - 11.00 K/uL Red Blood Cells 3.06 (L) 4.20 - 5.70 M/uL Hemoglobin 9.1 (L) 13.2 - 17.0 g/dL Hematocrit 27.9 (L) 39.0 - 50.0 % MCV 91.2 80.0 - 100.0 fl MCH 29.7 27.0 - 34.0 pg MCHC 32.6 32.0 - 35.5 g/dL RDW-SD 47.2 37 - 53 fl Platelet Count 220 150 - 400 K/uL MPV 10.3 fl Diff Type AUTOMATED % nRBC 0.0 0 /100WBC % Neutrophils 72.50 % IMMATURE GRANULOCYTE 0.50 % % Lymphocytes 18.10 % Monocyte % 8.70 % Eosinophils % 0.10 % Basophils % 0.10 % Neutrophils, Absolute 10.53 (H) 1.90 - 7.40 K/uL IMMATURE GRANS AB 0.07 0.00 - 0.07 K/uL Absolute Lymphocytes 2.62 1.00 - 3.90 K/uL Absolute Monocytes 1.26 (H) 0.00 - 0.80 K/uL Eosinophils, Absolute 0.01 0.00 - 0.50 K/uL Basophils, Absolute 0.02 0.00 - 0.10 K/uL Magnesium Result Value Ref Range Magnesium 1.7 1.7 - 2.4 mg/dL POC Glucose Result Value Ref Range Glucose, POC 115 (H) 65 - 99 mg/dL PROBLEM LIST Principal Problem: CAD in [place] artery Active Problems: Diabetes mellitus ASSESSMENT & PLAN S/P CABG -Continue ASA, Statin, Plavix, hold BB while req pressors -Wean SOURAV as tolerated, replace fluids PRN -Wean O2, encourage IS, ambulate -Continue CTs/TPWs for now Continue ICU care Code Status: Full Code The patient has been seen, all new lab results and imaging reviewed, and the plan discussed with the attending provider, WHITNEY Connell 02/15/2020 Associated attestation - Cj Faustin MD - 02/15/2020 9:49 AM PDTPatient was seen, exami tash, labs, x-rays, treatment plan reviewed. Gary Avery MD - 02/15/2020 8:54 AM PDT [facility] Service: Cardiology Progress Note Name of Township Clerk: Gary Avery MD I have seen the patient on 02/16/2020 SUBJECTIVE Status post CABG x3. "I feel like shit". Back pain. Stable blood pressure and heart rate. Stable hemoglobin. Normal creatinine. Medications were reviewed. OBJECTIVE Vital Signs: BP 100/56 | Pulse 81 | Temp 37.3 C (99.1 F) (Oral) | Resp 18 | Ht 1.829 m (6') | W t 98.7 kg (217 lb 9.5 oz) | SpO2 90% | BMI 29.51 kg/m Cardiovascular: Regular rhythm, S1 normal and S2 normal. No murmur heard. Pulses: Radial pulses are 2+ on the right side, and 2+ on the left side. Pulmonary/Chest: Effort normal and breath sounds normal. No wheezes. No rales. Abdominal: Soft. No tenderness. Musculoskeletal: No edema. Neurological: Alert. No cranial nerve deficit. Skin: Warm and dry. DATA Recent Labs Lab 02/16/20 0308 NA 137 K 3.8 CO2 27 BUN 8 CALCIUM 7.9* MG 2.1 Recent Labs Lab 02/16/20 0308 WBC 13.74* HGB 9.4* HCT 29.0* MCV 92.4 PLT 197 EKG: February 14, 2020, reviewed personally on February 15, 2020. Sinus rhythm, heart rate 94 , normal axis, normal QRS voltage in duration, normal ST-T segment. November 10, 2019, reviewed personally on November 10, 2019. Normal ECG. Sinus rhythm, heart ra te 67. November 09, 2019, reviewed personally on November 09, 2019. Sinus rhythm, heart rate 70, normal axis, normal P wave and MD interval, inferior ST elevation. Last Echo: November 10, 2019. EF 60 to 65%. Mild concentric left ventricular hypertrophy. Moderate h ypokinesia of the basal to mid inferolateral wallandbasal inferior wall. No significan t valvular disorders. Last stress test: Last cath: November 09, 2019. Three-vessel disease, including bifurcating proximal LAD. 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 Angioplasty for the right AV groove artery with a Synergy 2.5 x 24 mm. Carotid US: AAA screening: Lower extremity US: OTHERS: ASSESSMENT & PLAN Miles Ash Jr. is 64 y.o. gentleman with the following medical conditions: 1. Hypertension 2. Diabetes, on oral hypoglycemic medications 3. Coronary artery disease November 09, 2019, inferior STEMI. Heart catheterization showed three-vessel disease. Eunice oplasty for the right AV groove artery with a Synergy 2.5 x 24 mm. 4. Stroke, 2013, full recovery 5. Current smoker, 1 pack every day. Presented on February 14, 2020 for bypass surgery. CABG x3, FERNANDEZ to the LAD, SVG to the diagonal, SVG to the second obtuse marginal. Recommendations Continue aspirin and clopidogrel. Continue high intensity statins. Pain control. Code Status: Full Code Gary Avery MD 02/16/2020 Elinor Blevins ARNP - 02/15/2020 7:11 AM [facility] Service: Health And Safety Tech Cardiothoracic Surgery Consult and Follow Up Date/Time:02/15/2020 7:11 AM PDT Provider: KELLEY Middleton Hospital Day: LOS: 1 day Surgery/Procedure: Procedure(s) (LRB): CORONARY ARTERY BYPASS GRAFT (N/A) Post-Op Day: 1 Day Post-Op PROBLEM LIST Principal Problem: CAD in [place] artery Active Problems: Diabetes mellitus Resolved Problems: * No resolved hospital problems. * SUBJECTIVE: Patient Summary: From Dr. Faustin H&P on 02/05: "The patient is 64 y.o. male with significan t past medical history of HTN, DM and ongoing tobacco abuse (40 pack year history) admitted on 11/09/19 with chest pain. He was diagnosed with an acute inferior wall myocardial and unde rwent PCI and stenting of the RPDA branch. The patient has significant residual disease with a marisela grade proximal LAD lesion at a diagonal bifurcation and disease in the circumflex s ystem. Patient has been on plavix therapy." Patient held plavix for 1 week and presented as outpatient on 02/13 for planned CABG with Dr Lucas Faustin ROS: Unable to review due to intubation and mechanical ventilation. ICU Timeline: 02/13- To ICU s/p CABG x 3 + EVH with Dr. Faustin Overnight events - HD stable, SR, on sourav @70 mcg - on 2L NC - UOP 1545 mL, CT output 340 mL OBJECTIVE: Vital Signs: BP 101/55 | Pulse 73 | Temp 37.9 C (100.2 F) | Resp 28 | Ht 1.829 m (6') | Wt 94 k g (207 lb 3.7 oz) | SpO2 93% | BMI 28.11 kg/m EXAM GEN: awake and alert NEURO: PERRLA, EOMI, no facial asymmetry, moving extremities HEENT: sclerae clear, nonicteric, oral mmm, pink, no exudates NECK: supple, trachea midline CV: RRR, S1/S2, no murmur, rub or gallop, peripheral pulses palpable, cap refill brisk CHEST: midline incision with dressing, c/d/i, no erythema or oozing, CT exiting subxiphoid process LUNGS: coarse b/l, no wheezing, rales or rhonchi, symmetric chest expansion, even/unlabored respirations on NC ABD: soft, nondistended, nontender to palpation, no masses EXTR: no edema, clubbing or cyanosis, RLE in triny wrap SKIN: warm, dry, no rash or mottling; no e/o skin breakdown over the occiput, scapulae, elb ows, sacrum or heels LINES/TUBES: PIV, soliman, CT x 2, R IJ cordis, A-line Diagnostic Studies: Available labs and images have been reviewed and will be addressed as indicated in the assessment and plan. ASSESSMENT & PLAN: 1.CAD with hx of inferior STEMI and PCI of the RPDA branch - Medical management per primary service - ASA, clopidogrel, statin. BB on hold while on pr essors. - Post operative management per CTS (chest tubes, pacer wires, gtt management, anticoagulat ion, transfusion) - Ambulate, PT/OT, IS 2. Uncontrolled diabetes mellitus with A1c 12.1 - On Endotool post op. Transition to SSI once stabilizes. 3. Tobacco abuse - high school guidance counselor on smoking cessation Disposition: Per cardiothoracic surgery Code Status: Full Code *Please bill 35 minutes of critical care time spent evaluating the patient, reviewing the d kameron and formulating a plan exclusive of all other procedures. KELLEY Middleton 02/15/2020 7:11 AM PDT Trae Carmona Chaplain - 02/14/2020 10:21 AM PDTReceived the ON bypass pump report @ 10 13 Called Pt's friend Thien [phone] and gave him the ON bypass pump report. Thien express ed his concerns for his friend (Pt) and expressed appreciation for the update. rae Castillo Chaplain - 2019 7:23 AM PDTCVOR Referral. Pre Op visit. Pt appears comfortable and cooperative. CP pro vided assurance of emotional spiritual distress in light of Pt open heart surgery. Pt voiced that his friend Thien ([phone]) can be contacted for the updates. documented in this encounter H&P Notes Cj Faustin MD - 02/14/2020 6:46 [facility]acic Surgery Pre-Operative History & Physical Interval Update Please see H/P No clinical changes PE unchanged CAD/CABG today Cj Faustin MD 02/14/2020 *CORE MEASURES REMINDER: If the patient has a known or suspected infection prior to surger y, please add diagnosis to the problem list (consider: Infection 136.9). Electronically sig tash by Cj Faustin MD at 02/14/2020 6:48 AM Cj Archibald MD - 02/06/2020 8:30 AM PD T Service: Cardiothoracic Surgery Consult Note CHIEF COMPLAINT: Evaluation for surgical revascularization HISTORY OF PRESENT ILLNESS The patient is 64 y.o. male with significant past medical history of HTN, DM and ongoing to bacco abuse (40 pack year history) admitted on 11/09/19 with chest pain. He was diagnosed wit h an acute inferior wall myocardial and underwent PCI and stenting of the RPDA branch. The p atient has significant residual disease with a marisela grade proximal LAD lesion at a diagonal bifurcation and disease in the circumflex system. Patient has been on plavix therapy. He no w presents for consideration of surgical revascularization. REVIEW OF SYSTEMS Review of Systems HENT: Negative. Respiratory: Negative. Cardiovascular: Negative. Gastrointestinal: Negative. Genitourinary: Negative. Musculoskeletal: Negative. Neurological: CVA-2013-No residual deficits Psychiatric/Behavioral: Negative. All other systems are reviewed and negative Past Medical History: Diagnosis Date Diabetes mellitus (HCC) Past Surgical History: Procedure Laterality Date CARDIAC CATHERIZATION N/A 11/09/2019 Procedure: CV COR ANGIO; Surgeon: Gary Avery MD; [place] [facility] [place]ARDIAC CATHER[place] N/A 11/09/2019 Procedure: CV LHC; Surgeon: Gary Avery MD; [place] [facility] [place] CARDIAC CATHERIZATION N/A 11/09/2019 Procedure: CV Stent; Surgeon: Gary Avery MD; [place] [facility] [place]OM[place] No Known Allergies (Not in a hospital admission) Family History Family history unknown: Yes Social History Socioeconomic History Marital status: Significant Other Spouse name: Not on file Number of children: Not on file Years of education: Not on file Highest education level: Not on file Occupational History Not on file Social Needs Financial resource strain: Not on file Food insecurity Worry: Not on file Inability: Not on file Transportation needs Medical: Not on file Non-medical: Not on file Tobacco Use Smoking status: Former Smoker Packs/day: 0.25 Start date: 11/27/1974 Smokeless tobacco: Never Used Tobacco comment: Per pt quit a couple weeks ago Substance and Sexual Activity Alcohol use: Not Currently Drug use: Never Sexual activity: Not Currently Lifestyle Physical activity Days per week: Not on file Minutes per session: Not on file Stress: Not on file Relationships Social connections Talks on phone: Not on file Gets together: Not on file Attends restoration service: Not on file Active member of club or organization: Not on file Attends meetings of clubs or organizations: Not on file Relationship status: Not on file Intimate partner violence Fear of current or ex partner: Not on file Emotionally abused: Not on file Physically abused: Not on file Forced sexual activity: Not on file Other Topics Concern Not on file Social History Narrative Not on file PHYSICAL EXAM Vital Signs: BP 125/77 | Pulse 74 | Temp 36.8 C (98.3 F) (Temporal) | Ht 1.829 m (6') | Wt 92.1 kg (203 lb 1.6 oz) | SpO2 96% | BMI 27.55 kg/m Physical Exam Vitals signs reviewed. Constitutional: Appearance: He is well-developed. HENT: Head: Normocephalic and atraumatic. Cardiovascular: Rate and Rhythm: Normal rate and regular rhythm. Heart sounds: Normal heart sounds. Pulmonary: Effort: Pulmonary effort is normal. Breath sounds: Normal breath sounds. Abdominal: General: Bowel sounds are normal. Palpations: Abdomen is soft. Skin: General: Skin is warm and dry. Neurological: Mental Status: He is alert and oriented to person, place, and time. DATA Cath 11/09/19 Coronary Findings Diagnostic Dominance: Right Left Main The vessel is large in size and is angiographically normal. Left Anterior Descending The vessel is large in size. Evidence of 80% stenosis in the proximal LAD, bifurcating with the first diagonal. Mid LAD has no significant stenosis Distal LAD is normal in size with d iffuse 90% stenosis. First diagonal is large in size, the ostium has a 90% stenosis at the b ifurcation with the proximal LAD, diagonal has another 70 to 80% stenosis. Second and third diagonals are absent. Left Circumflex The vessel is moderate in size. The left circumflex artery becomes small after the second o btuse marginal. It has 80% stenosis. First and third obtuse marginal are small in size Secon d obtuse marginal is normal in size, bifurcating, 50 to 60% stenosis. Right Coronary Artery The vessel is moderate in size. Evidence of 10 to 20% stenosis in the proximal RCA. Right P DA is normal in size without significant stenosis Right AV groove artery is normal in size w ith 99% stenosis 3 right posterolateral arteries are normal in size without significant sten osis. Right Posterior Atrioventricular Artery RPAV lesion, 99% stenosed. The lesion is about 20mm. This is the culprit lesion. The comple xity is high/c. Intervention RPAV lesion PCI There is decreased distal flow pre-intervention (ALEJANDRO II). There is normal distal flow post -intervention (ALEJANDRO III). The intervention was successful. The lesion was pre-dilated using a BLN EMRGE MR CATH 15X2.25MM. A STENT ANGEL SYNERGY MR 2.5 X 24 drug-eluting stent was placed . A BLN NC QNTM APX MR 3.00I88SQ was used for post-stent dilation. There is a 0% residual stenosis post intervention. Echo 11/10/19 Conclusion 1. Normal overall left ventricular systolic function with EF 60 to 65%. 2. Mild concentric left ventricular hypertrophy. 3. Moderate hypokinesia of the basal to mid inferolateral wall and basal inferior wall. 4. No significant valvular disorders. STS Adult Cardiac Surgery Database Version 2.9 RISK SCORES Procedure: Isolated CAB Risk of Mortality: 0.589% Renal Failure: 0.617% Permanent Stroke: 0.854% Prolonged Ventilation: 2.907% DSW Infection: 0.137% Reoperation: 1.227% Morbidity or Mortality: 5.197% Short Length of Stay: 56.724% Long Length of Stay: 2.446% ASSESSMENT & PLAN 64 y.o. with 3 vessel coronary artery disease and preserved left ventricular function. The patient presented with an acute inferior wall myocardial infraction and has undergone PCI a nd stenting of the RPDA on 11/09/19.. The proximal LAD lesion involving a large diagonal bran ch is best served with surgical revascularization. The very distal LAD lesion can subsequent ly be treated with PCI and stenting. Risks and benefits of the procedure including but not l imited to bleeding, infection, stroke, damage to the heart, lungs kidneys and were dis cussed at length with the patient and his family. STS risk score was reviewed with the sonny ent. Patient understands the risks and wants to proceed with surgery. CABG tentatively sched uled for 02/14/20. Primary Care Physician: EDUIN Keenan MD 02/06/2020 *CORE MEASURES REMINDER: If the patient has a known or suspected infection prior to surger y, please add diagnosis to the problem list (consider: Infection 136.9). documented in this enco unter Consult Notes Elinor Cruz ARNP - 02/14/2020 1:25 PM [facility] Service: Health And Safety Tech Cardiothoracic Surgery Consult and Follow Up Date/Time:02/14/2020 4:43 PM PDT Provider: KELLEY Middleton Hospital Day: LOS: 0 days Surgery/Procedure: Procedure(s) (LRB): CORONARY ARTERY BYPASS GRAFT (N/A) Post-Op Day: Day of Surgery PROBLEM LIST Principal Problem: CAD in [place] artery Active Problems: Diabetes mellitus Resolved Problems: * No resolved hospital problems. * SUBJECTIVE: Patient Summary: From Dr. Faustin H&P on 02/05: "The patient is 64 y.o. male with significan t past medical history of HTN, DM and ongoing tobacco abuse (40 pack year history) admitted on 11/09/19 with chest pain. He was diagnosed with an acute inferior wall myocardial and unde rwent PCI and stenting of the RPDA branch. The patient has significant residual disease with a marisela grade proximal LAD lesion at a diagonal bifurcation and disease in the circumflex s ystem. Patient has been on plavix therapy." Patient held plavix for 1 week and presented as outpatient on 02/13 for planned CABG with Dr Lucas Faustin ROS: Unable to review due to intubation and mechanical ventilation. ICU Timeline: 02/13- To ICU s/p CABG x 3 + EVH with Dr. Faustin Events Intraop/on arrival to ICU per handoff report with anesthesiologist: - HD stable, SR, on insulin drip - intubated/sedated on precedex. Easy airway - intraop JOHN with LVEF - Fluids: crystalloid 2000 mL, cell saver 600 mL, UOP 600 ml OBJECTIVE: Vital Signs: BP 114/64 | Pulse 96 | Temp 36.4 C (97.5 F) | Resp (!) 42 | Ht 1.829 m (6') | Wt 9 0 kg (198 lb 6.6 oz) | SpO2 (!) 87% | BMI 26.91 kg/m EXAM GEN: intubated and sedated post op NEURO: PERRLA, EOMI, no facial asymmetry, moving extremities HEENT: sclerae clear, nonicteric, oral mmm, pink, no exudates NECK: supple, trachea midline CV: RRR, S1/S2, no murmur, rub or gallop, peripheral pulses palpable, cap refill brisk CHEST: midline incision with dressing, c/d/i, no erythema or oozing, CT exiting subxiphoid process LUNGS: coarse b/l, no wheezing, rales or rhonchi, symmetric chest expansion, even/unlabored respirations on MV ABD: soft, nondistended, nontender to palpation, no masses EXTR: no edema, clubbing or cyanosis, RLE in triny wrap SKIN: warm, dry, no rash or mottling; no e/o skin breakdown over the occiput, scapulae, elb ows, sacrum or heels LINES/TUBES: PIV, soliman, CT x 2, R IJ cordis, A-line Diagnostic Studies: Available labs and images have been reviewed and will be addressed as indicated in the assessment and plan. ASSESSMENT & PLAN: 1.CAD with hx of inferior STEMI and PCI of the RPDA branch - Medical management per primary service. - Work towards extubation and liberation from MV - Post operative management per CTS (chest tubes, pacer wires, gtt management, anticoagulat ion, transfusion) - Ambulate, PT/OT, IS 2. Diabetes mellitus - On Endotool post op. Transition to SSI once stabilizes. 3. Tobacco abuse - high school guidance counselor on smoking cessation once able to participate. Disposition: Per cardiothoracic surgery Code Status: Full Code *Please bill 45 minutes of critical care time spent evaluating the patient, reviewing the d kameron and formulating a plan exclusive of all other procedures. KELLEY Middleton 02/14/2020 4:43 PM PDT documented in this encounter Miscellaneous Notes Plan of Inocente - Theresa Ham, RN - 2020 11:18 AM PDT Problem: Activity Intolerance (Cardiovascular Surgery) Goal: Improved Activity Tolerance Outcome: Ongoing, progressing Intervention: Optimize Tolerance for Activity Note: Pt ambulated with PT this AM prior to DC, needs reminders of sternal precautions. Problem: Pain (Cardiovascular Surgery) Goal: Acceptable Pain Control Outcome: Ongoing, progressing Note: Pt denies any pain this AM lan of Care - Mehrdad Cohen MSW - 2020 9:47 AM PDTCare Management SNF/LTACH Final Discharge Plan Readmission Risk: HIGH Discharge Plan Planned Disposition: Swing bed Planned Destination: [facility] [place] of Choice: yes Facility Information: Address: [address] [place] [id number] Community Care Provider: Oracio Schwartz DO Patient/Family Notified: yes Transportation will be provided by: friend/neighbor Transportation Date/Time: friend/neighbor 1000 Ride Contact: Name: Thien Sorensen cell Confirmed 3 Qualifying Midnights: yes SNF Authorization Received: yes PASRR Completed: yes IM Letter signed and added. Electronically signed: LAURA AVENDAÑO 2020 9:51 AM PDT NF Transfer - Celio Rod PA - 2020 8:45 AM PDTFormatting of this note might be different from the o riginal. PENITENTIARY FACILITY TRANSFER ORDERS Patient Name: Miles Ash Jr. Patient : 1955 Gender: male Date of Admission: 02/14/2020 Date of Discharge: 2020 Admitting Provider: Cj Faustin MD Discharging Provider: WHITNEY Rawls PCP: [facility] transferring to: [facility] CODE STATUS: [x] Attempt CPR [] Do not resuscitate If patient is pulseless and not breathing, RN/DIRECTOR GLOBAL may pronounce . Advanced Directives included: [x] POLST [] MOLST/MOST [] [employer] [facility] ([place]) [] Other: Code status discussed with: [x] Patient [] Spouse/Family [] DPOA [] Other: Isolation/Infection Precautions: No active isolations No active infections Height: Height: 182.9 cm (6') Wt Readings from Last 3 Encounters: 02/21/20 89.1 kg (196 lb 6.9 oz) 02/06/20 92 kg (202 lb 13.2 oz) 02/06/20 92.1 kg (203 lb 1.6 oz) Admitting Diagnosis: CAD in [place] artery Patient Active Problem List Diagnosis ST elevation myocardial infarction (STEMI) of inferior wall Coronary artery disease involving [place] coronary artery of [place] heart without angina pectoris CAD in [place] artery Diabetes mellitus No Known Allergies Most Recent Immunizations Administered Date(s) Administered INFLUENZA PF 4Y OR >,QUAD DERIVED FROM TISS-CULT 03/03/2018 INFLUENZA PF QUAD(PED/ADOL/ADULT),PSKT or VIAL 03/20/2017 Diet: [x] As tolerated SOFTWARE EDUCATOR may upgrade or downgrade diet as condition Indicates. [] RN may downgrade diet as indicated. Type: [x] Continue current diet of: Diet and Supplements Diet Diet fat and cholesterol modified; consistent carbohydrate; Effective Now Number of Occurrences: Until Specified Order Questions: Type Diet fat and cholesterol modified carbohydrate restrictions consistent carbohydrate Nourishments Dietary nutrition supplements Boost Glucose Control, strawberry or chocolate, TID with maris ls Number of Occurrences: Until Specified Order Questions: Supplement Boost Glucose Control, strawberry or chocolate, TID with meals [] Other: Consistency/Precautions: Foods Drinks [] Regular [] Thin (TN0) [] Regular easy to chew (EC7) [] Slightly thick (ST1) [] Soft and bite-sized (SB6) [] Mildly thick (MT2) [] Minced and moist (MM5) [] Moderately thick (MO3) [] Pureed (PU4) [] Extremely thick (EX4) [] Liquidized (LQ3) [] Dental Soft Other [] 1:1 feedings [] Other: Tube Feedings: [] PEG [] GT [] JT [] NGT [] Formula type: (Fore[employer] Pathology Teacher may change/substitute if indicated). [] Continuous Rate: ml/hr, infusing hrs/day [] Bolus feeds: ml every hours [] Additional water: ml every hours Respiratory: [] BiPAP at night & PRN SOB. Settings: O2 L bleed Dx: [] CPAP at night & PRN SOB. Settings: O2 L bleed Dx: [] Suction & Pulmonary toilet PRN secretion/sputum management. Dx: [] Incentive Spirometer QID and PRN while awake. Duration: Dx: [] Tracheostomy management per protocol [] Oxygen: Lpm NC/Trach [] Continuous [] NOC [] Humidified [] prn SaO2 < % [] prn SOB/dyspnea Dx: [] Other: Dx: Bladder: [x] Follow nursing protocol for recent soliman removal [] Soliman catheter managment per nursing protocol - Indication: [] Permanent [] Temporary [] Remove soliman catheter on and follow nursing protocol for recent soliman remova l. [] Straight catheter every hour(s) and record amount drain Dx: [] Bladder scan every hour(s) and straight cath for > ml Dx: [] Suprapubic catheter management Dx: Other Lines, Tubes and Drains: (to be managed by nursing protocol) [] IV access and location: [] Permanent [] Temporary: Instructions/indications for removal of IV access: [] May use Alteplase per protocol PRN occluded central venous catheter [] Colostomy [] Ileostomy [] Urostomy [] Nephrostomy [] Dialysis Access - Type & Location: [] Drains - Type & Location: [] Other: Activity/Therapies: []WBAT [x] Weight Bearing Restricted (specify limb(s)): ____UE no more than 5lbs [x] PT Evaluation & Management for: [x] OT Evaluation & Management for: [] SOFTWARE EDUCATOR Evaluation &Management for: [] Other: Wound/Skin Care: [] Follow current recommendations of the wound team for treatment. [x] Follow standard nursing protocols for wound care. [] Wound Vac management per nursing protocol. Indication: Location: Settings: Change frequency: & prn [] Other: Labs/Imaging: [] PT/INR: Frequency: Dx: Goal INR: Duration of therapy: [] Fingerstick glucose checks: Dx: DM [] Other: Test/Study Needed/Frequency Diagnosis/Indication Follow up appointments and consultations: Date/Time: Dr. Date/Time I have advised this patient that he/she not use tobacco products. TB screening: Upon admission the 1st and 2nd step TST will be done as per protocol if Resid ent has no history of TB or a past positive TST. Pharmacist may substitute equivalent Rx based on facility or insurance formulary as needed unless otherwise specified by physician. Please write "JEREMY" (Dispense as written) if a medi cation should not be substituted. Please make sure to write a diagnosis for ALL medications continued on transfer. Antibioti cs require a stop date. If medications do not contain a SIG, make sure doses/routes and amish edule is included. Medication Orders New Medications Details Order Next Dose Due acetaminophen 500 mg tablet Take 2 tablets by mouth EVERY 6 TO 8 HOURS NEEDED for Pain. aka: TYLENOL By: WHITNEY Rawls Quant: 60 tablet docusate sodium 100 MG capsule Take 100 mg by mouth Twice daily as needed for Constipation. aka: COLACE By: WHITNEY Rawls Quant: 30 capsule furosemide 40 mg tablet Take 1 tablet by mouth Daily. aka: LASIX By: WHITNEY Rawls Quant: 30 tablet insulin detemir 100 units/mL injection (pen) Inject 18 Units under the skin every 24 hours. aka: LEVEMIR FLEXTOUCH By: WHITNEY Rawls Quant: 6 mL insulin lispro 100 units/mL injection (vial) Inject 10 Units under the skin 3 times daily (with meals). aka: humaLOG, ADMELOG By: WHITNEY Rawls Quant: 9 mL insulin lispro 100 units/mL injection (vial) Inject 2-14 Units under the skin 3 times daily (with meals) EndoTool Correctional Scale: For Blood Glucose (BG): 142 to 180 Give 2 units 181 to 220 Give 4 units 221 to 260 Give 6 units 261 to 300 Give 8 units 301 to 350 Give 10 units 351 to 400 Give 12 units Over 400 Give 14 units Only for use with U-100 insulin syringe... aka: humaLOG, ADMELOG By: WHITNEY Rawls Quant: 3 mL tamsulosin 0.4 mg Caps Take 1 capsule by mouth daily (after breakfast). aka: FLOMAX By: WHITNEY Rawls Quant: 30 capsule traMADol 50 mg tablet Take 1-2 tablets by mouth every 6 hours as needed for Pain. aka: ULTRAM By: WHITNEY Rawls Quant: 120 tablet Changed Medications Details Order Next Dose Due metoprolol succinate 100 mg ER tablet Take 1 tablet by mouth Daily. What changed: medication strength how much to take aka: TOPROL-XL By: WHITNEY Rawls Quant: 30 tablet Unchanged Medications Details Order Next Dose Due aspirin 81 mg chewable tablet Chew and swallow 1 tablet (81 mg total) Daily By: Gayr Avery MD Quant: 90 tablet atorvaSTATin 80 MG tablet Take 1 tablet (80 mg total) by mouth nightly aka: LIPITOR By: Gary Avery MD Quant: 90 tablet clopidogrel 75 mg tablet Take 1 tablet (75 mg total) by mouth Daily aka: PLAVIX By: Gary Avery MD Quant: 90 tablet lisinopril 10 mg tablet Take 1 tablet (10 mg total) by mouth Daily aka: PRINIVIL, ZESTRIL By: Gary Avery MD Quant: 90 tablet Discontinued Medications nitroglycerin 0.4 mg SL tablet aka: GOLD Mckeon, WHITNEY Rawls, certify that post hospital prison care is medically necess leny on a continuing basis for any of the conditions for which he/she received care during th is hospitalization. Check one: [x] Skilled [] Intermediate Additional Orders/Instructions: Physician's signature: Celio Rod PA-C 2020 8:45 AM PDT [facility] USE ONLY: [] Admitting orders verbally reviewed with Admitting Physician, modified where appropriate, and approved. Verbal Order from Date: Time: _ RN name: RN signature: [] Admitting orders reviewed, modified where appropriate, and approved. Physician's signature: Date: Time: lan of Care - Chema Frias, PT - 2020 7:38 AM PDT Physical Therapy Treatment Note Recommended discharge disposition: prison facility Post discharge physical therapy recommendation: minimum 5 days of therapy/week, will benef it from structured setting Equipment Recommendations: 4 wheeled walker (4WW) Barriers to community-based discharge Level of assistance for ADLs/mobility and Fall risk Recommended Frequency: twice a day for 7 days with reassessment due by 02/22/20 Summary: pt. sitting in recliner when therapist arrived and agreeable to PT. Reviewed pre cautions with pt. who needed minimal assistance to get them. pt. able to follow precautions through session. pt. then ambulated with 4WW with slow gait speed but good posture. ld abel cues needed when sitting down to sit in proper position as he was aiming to sit on arm res t prior to verbal cues. Precautions Precautions/Limitations: falls, sternal Transfers Additional Documentation: sit to/from stand Sit-Stand, Level of Ferry: contact guard assist Stand-Sit, Level of Ferry: contact guard assist [id number], Assistive Device: 4 wheeled walker (4WW) Gait Level of Ferry: stand by assist Assistive Device: 4 wheeled walker (4WW) Distance (feet): 400 Gait Deviations: aileen decreased, step length decreased Safety Issues: balance decreased during turns Goals Reflects last filed data and may be from multiple contributors. All Bed Mobility Goal Most Recent Value LTG Ferry Level minimum assist (75% patient effort) at 02/15/2020 1100 All Transfers Goal Most Recent Value LTG Ferry Level stand by assist at 02/15/2020 1100 Gait Goal Most Recent Value LTG Ferry Level stand by assist at 02/15/2020 1100 LTG Assistive Device 4 wheeled walker (4WW) at 02/15/2020 1100 LTG Distance (feet) 300 at 02/15/2020 1100 PT Time Calculation Individual Start Time: 0738 Individual Stop Time: 0803 Individual Total Time: 25 PT Total Treatment Time: 25 lan of Care - Sandy Larson RN - 2020 12:42 AM PDT Problem: Adult Inpatient Plan of Care Goal: Plan of Care Review Outcome: Ongoing, progressing Flowsheets (Taken 2020 004) Plan of Care Reviewed With: patient Goal: Absence of Hospital-Acquired Illness or Injury Outcome: Ongoing, progressing Intervention: Identify and Manage Fall Risk Note: Room kept clutter free, fall mat next to bed, bed alarm/Tab alarm set. Urinal at bed side Problem: Fall Injury Risk Goal: Absence of Fall and Fall-Related Injury Outcome: Ongoing, progressing Intervention: Identify and Manage Contributors to Fall Injury Risk Flowsheets (Taken 2020 0040) Self-Care Promotion: BADL personal objects within reach BADL personal routines maintained Problem: Pain (Cardiovascular Surgery) Goal: Acceptable Pain Control Outcome: Ongoing, progressing Intervention: Prevent or Manage Pain Note: Pain controlled with scheduled Tylenol lan of Mehrdad Pierce MSW - 02/20/2020 4:27 PM PDTDISCHARGE PLANNING COMMUTER TRAIN OPERATOR p/c with Jasmin at [facility], unable to accept. COMMUTER TRAIN OPERATOR P/c with Janeth at [facility], will accept Pt tomorrow on WednesdayFeb 20. INSTRUCTIONS [facility] [place] [address], [place], [place] [address] Facility: [phone], Janeth Peters (Admissions) [phone] RN to RN Report - [phone] Physician to Physician Report - Call Oracio Schwartz DO [phone] cell. Transport: Pt friend Thien Sorensen ([phone] cell) will pick up operator Pt at 10:00am Wednesday in [facility] - Leave 9RP - Call Staff Occupational Therapist 9:45am. DCP: [facility] LAURA AVENDAÑO [phone] cell lan of Carlos Echavarria, PT, DPT - 02/20/2020 12:36 PM PDTFormatting of this note might be different fr om the original. Physical Therapy Treatment Note Recommended discharge disposition: prison facility Post discharge physical therapy recommendation: minimum 5 days of therapy/week, will benef it from structured setting Equipment Recommendations: 4 wheeled walker (4WW) Barriers to community-based discharge Physical Impairment, Level of assistance for ADLs/mobility, Precautions, and Fall risk Recommended Frequency: twice a day for 7 days with reassessment due by 02/22/20 Summary: Pt. is doing well. Per RN, he returned to the bed without notifcation to staff. He has a bed alarm and chair alarm at this time. He is AOx4, cooperative, and calm. He ac knowledges, he should call staff before getting up. He is able to arise w/ SBA and mobilize 400 ft. with SBA using 4WW. Gait speed is slow however upright posture is vastly improved. He requires CGA during turns and when performing transitional movements prior to sitting i n the chair. VSS throughout mobility progression. Pt. was left in the chair. Alarm on. Precautions Precautions/Limitations: falls, sternal, cardiac Cognitive Assessment Mood/Behavior: labile Orientation: oriented x 4 Bed Mobility Supine to Sit, Level of Ferry: moderate assist (50% patient effort) Transfers Sit-Stand, Level of Ferry: stand by assist, contact guard assist Gait Level of Ferry: stand by assist, contact guard assist Assistive Device: 4 wheeled walker (4WW) Distance (feet): 400 Gait Pattern Analysis: swing-to gait Gait Deviations: aileen decreased, step length decreased Safety Issues: balance decreased during turns Balance Sitting Balance: Static: good balance Sitting Balance: Dynamic: good balance Standing Balance: Static: fair balance Standing Balance: Dynamic: fair balance Goals Reflects last filed data and may be from multiple contributors. All Bed Mobility Goal Most Recent Value LTG Ferry Level minimum assist (75% patient effort) at 02/15/2020 1100 All Transfers Goal Most Recent Value LTG Ferry Level stand by assist at 02/15/2020 1100 Gait Goal Most Recent Value LTG Ferry Level stand by assist at 02/15/2020 1100 LTG Assistive Device 4 wheeled walker (4WW) at 02/15/2020 1100 LTG Distance (feet) 300 at 02/15/2020 1100 lan of Care - Carlos Ramírez PT, DPT - 02/20/2020 8:44 AM PDTFormatting of this note might be di fferent from the original. Physical Therapy Treatment Note Recommended discharge disposition: prison facility Post discharge physical therapy recommendation: minimum 5 days of therapy/week, will benef it from structured setting Equipment Recommendations: 2 wheeled walker (FWW) Barriers to community-based discharge Physical Impairment, Level of assistance for ADLs/mobility, Precautions, and Fall risk Recommended Frequency: twice a day for 7 days with reassessment due by 02/22/20 Summary: Pt. is doing fair. He denies pain. Overall, his mobility continues to improve. He ambulated approx. 250 ft. with slow/steady gait using the 4WW. VSS. Pt. left back in t he chair. Alarm on. Precautions Precautions/Limitations: falls, sternal, cardiac Cognitive Assessment Orientation: oriented x 4 Transfers Sit-Stand, Level of Ferry: minimal assist (75% patient effort) Gait Level of Ferry: contact guard assist, minimal assist (75% patient effort) Assistive Device: 4 wheeled walker (4WW) Distance (feet): 250 Gait Deviations: aileen decreased, step length decreased Safety Issues: balance decreased during turns Goals Reflects last filed data and may be from multiple contributors. All Bed Mobility Goal Most Recent Value LTG Ferry Level minimum assist (75% patient effort) at 02/15/2020 1100 All Transfers Goal Most Recent Value LTG Ferry Level stand by assist at 02/15/2020 1100 Gait Goal Most Recent Value LTG Ferry Level stand by assist at 02/15/2020 1100 LTG Assistive Device 4 wheeled walker (4WW) at 02/15/2020 1100 LTG Distance (feet) 300 at 02/15/2020 1100 lan of Care - Nya Mckay RN - 02/20/2020 8:08 AM PDTPatient A&O x4, impulsive at times. Normal sinus rhythm. Pt reports occasionally hearing his sternum pop, however, this RN has not heard it, and his sternal incision is approximated and even. Patient up walking x8, doing full laps in the chase. End of shift chart check done. Care plan note: Problem: Adult Inpatient Plan of Care Goal: Plan of Care Review Outcome: Ongoing, progressing Plan of care and daily goals discussed with patient; pt's questions answered, all care exp lained. Problem: Adult Inpatient Plan of Care Goal: Absence of Hospital-Acquired Illness or Injury Outcome: Ongoing, progressing Safe environment maintained. Problem: Adjustment to Surgery (Cardiovascular Surgery) Goal: Optimal Coping with Heart Surgery Outcome: Ongoing, progressing Patient is calm, pleasant and cooperative. Problem: Fall Injury Risk Goal: Absence of Fall and Fall-Related Injury Outcome: Ongoing, progressing Fall prevention bundle implementation continued. Problem: Skin Injury Risk Increased Goal: Skin Health and Integrity Outcome: Ongoing, progressing Patient able to reposition self/weight shift independently. Surgical incisions monitored, no s/s of bleeding or infection. Problem: Activity Intolerance (Cardiovascular Surgery) Goal: Improved Activity Tolerance Outcome: Ongoing, progressing Patient up in chair. Goal for today is to increase activity to seven walks in the chase. Problem: Pain (Cardiovascular Surgery) Goal: Acceptable Pain Control Outcome: Ongoing, progressing Pain control plan reviewed with patient. Pain level monitored. Patient medicated per MAR f or adequate pain control. lan of Inocente - Sandy Martin RN - 02/20/2020 1:33 AM PDT Problem: Adult Inpatient Plan of Care Goal: Plan of Care Review Outcome: Ongoing, progressing Flowsheets (Taken 02/20/2020 0129) Plan of Care Reviewed With: patient Goal: Absence of Hospital-Acquired Illness or Injury Outcome: Ongoing, progressing Intervention: Identify and Manage Fall Risk Note: Room kept clutter free, fall mat next to bed, bed/tab alarm set, urinal at bedisde Problem: Fall Injury Risk Goal: Absence of Fall and Fall-Related Injury Outcome: Ongoing, progressing Intervention: Identify and Manage Contributors to Fall Injury Risk Flowsheets (Taken 02/20/2020 0129) Self-Care Promotion: independence encouraged BADL personal objects within reach BADL personal routines maintained Problem: Pain (Cardiovascular Surgery) Goal: Acceptable Pain Control Outcome: Ongoing, progressing Intervention: Prevent or Manage Pain Note: Pain controlled with scheduled Tylenol lan of Mehrdad Pierce MSW - 02/19/2020 4:59 PM PDTDISCHARGE PLANNING COMMUTER TRAIN OPERATOR met with Pt and discussed discharge planning, states preference for (A) [facility] [place], (B) [facility] [place]. DCP: Pending at [facility] [place] LAURA AVENDAÑO [phone] cell lan of Pallavi Mcmahon PTA - 02/19/2020 1:00 PM PDTFormatting of this note jesús jones e different from the original. Physical Therapy Treatment Note Recommended discharge disposition: prison facility Post discharge physical therapy recommendation: minimum 5 days of therapy/week, will benef it from structured setting Equipment Recommendations: 2 wheeled walker (FWW) Barriers to community-based discharge Physical Impairment, Level of assistance for ADLs/mobility, Pain, and Fall risk Recommended Frequency: twice a day for 7 days with reassessment due by 02/22/20 Summary: Therapy focused on increasing activity tolerance, trial 4WW and progress ambulati on. Pt was min A with STS to FWW with walking but continues to require cueing to "not push u p with arms". Pt trialed 4WW as pt requesting to go home vs SNF. Discussed with pt that a HP W is not feasible in home enviroments and would have to be on a least restrictive device. Pt was min A with ambulation and mod A with turns as pt can be impuslive with increased speed putting pt at risk for falls. Time spent for pt to use the BR and was CGA for toilet transfe r. Pt would benefit from continued therapy for walker safety, balance and progress gait w/ 4 WW. Precautions Precaution Comment: wound vac Precautions/Limitations: falls, sternal Cognitive Assessment Orientation: oriented x 4 Transfers Additional Documentation: sit to/from stand Sit-Stand, Level of Ferry: minimal assist (75% patient effort) Stand-Sit, Level of Ferry: minimal assist (75% patient effort) [id number], Assistive Device: 4 wheeled walker (4WW), bariatric Gait Level of Ferry: minimal assist (75% patient effort) Assistive Device: 4 wheeled walker (4WW), bariatric Distance (feet): 50+75x2 Additional Documentation: pattern, deviations Gait Pattern Analysis: swing-to gait Gait Deviations: aileen decreased, step length decreased Safety Issues: sequencing ability decreased, balance decreased during turns Balance Sitting Balance: Static: good balance Sitting Balance: Dynamic: good balance Standing Balance: Static: fair balance Goals Reflects last filed data and may be from multiple contributors. All Bed Mobility Goal Most Recent Value LTG Ferry Level minimum assist (75% patient effort) at 02/15/2020 1100 All Transfers Goal Most Recent Value LTG Ferry Level stand by assist at 02/15/2020 1100 Gait Goal Most Recent Value LTG Ferry Level stand by assist at 02/15/2020 1100 LTG Assistive Device 4 wheeled walker (4WW) at 02/15/2020 1100 LTG Distance (feet) 300 at 02/15/2020 1100 PT Time Calculation Individual Start Time: 1300 Individual Stop Time: 1339 Individual Total Time: 39 PT Total Treatment Time: 39 lan of Care - Pallavi Pringle PTA - 02/19/2020 8:57 AM PDTFormatting of this note might be differen t from the original. Physical Therapy Treatment Note Recommended discharge disposition: prison facility Post discharge physical therapy recommendation: minimum 5 days of therapy/week, will benef it from structured setting Equipment Recommendations: 2 wheeled walker (FWW) Barriers to community-based discharge Physical Impairment, Level of assistance for ADLs/mobility, Pain, and Fall risk Recommended Frequency: twice a day for 7 days with reassessment due by 02/22/20 Summary: Pre activity vitals BP: 137/61, HR 93, SPO2 97%. Therapy focused on increasing ac tivity tolerance, transfers and progress ambulation. Pt was mod A with STS w/ heart pillow r equiring cueing to scoot to EOB before attempting to stand. Pt once standing was min A with HPW with cues to stand full upright as pt tends to hunch over HPW. Pt with encouragement amb ulated 50ft and discussed progressing to more household community distances throughout sessi ons, pt agreeable. Pt returned to chair and left with all needs met,call light in reach and chair alarm set. Precautions Precaution Comment: wound vac Precautions/Limitations: falls, sternal Cognitive Assessment Orientation: oriented x 4 Transfers Additional Documentation: sit to/from stand Sit-Stand, Level of Ferry: moderate assist (50% patient effort), minimal assist (75% patient effort) Stand-Sit, Level of Ferry: moderate assist (50% patient effort), minimal assist (75% patient effort) [id number], Assistive Device: other (see comments), gait belt(Heart pillow ) Impairments: strength decreased, impaired balance, pain Gait Level of Ferry: minimal assist (75% patient effort), moderate assist (50% patient ef fort) Assistive Device: other (see comments)(HPW) Distance (feet): 25x2 Additional Documentation: pattern, deviations Gait Pattern Analysis: swing-to gait Gait Deviations: aileen decreased, step length decreased Safety Issues: sequencing ability decreased, balance decreased during turns Balance Sitting Balance: Static: good balance Sitting Balance: Dynamic: good balance Standing Balance: Static: fair balance Standing Balance: Dynamic: poor balance Goals Reflects last filed data and may be from multiple contributors. All Bed Mobility Goal Most Recent Value LTG Ferry Level minimum assist (75% patient effort) at 02/15/2020 1100 All Transfers Goal Most Recent Value LTG Ferry Level stand by assist at 02/15/2020 1100 Gait Goal Most Recent Value LTG Ferry Level stand by assist at 02/15/2020 1100 LTG Assistive Device 4 wheeled walker (4WW) at 02/15/2020 1100 LTG Distance (feet) 300 at 02/15/2020 1100 PT Time Calculation Individual Start Time: 856 Individual Stop Time: 924 Individual Total Time: 28 PT Total Treatment Time: 28 lan of Care - Nya Mckay RN - 02/19/2020 8:50 AM PDTPatient A&O x4, normal sinus rhythm, vital sig ns stable. Up in chair, up walking x7 this shift, doing laps in the chase. Has good appetite. End of shift chart check done. Care plan note: Problem: Adult Inpatient Plan of Care Goal: Plan of Care Review Outcome: Ongoing, progressing Plan of care and daily goals discussed with patient; pt's questions answered, all care exp lained. Problem: Adult Inpatient Plan of Care Goal: Absence of Hospital-Acquired Illness or Injury Outcome: Ongoing, progressing Safe environment maintained. Problem: Adjustment to Surgery (Cardiovascular Surgery) Goal: Optimal Coping with Heart Surgery Outcome: Ongoing, progressing Patient is calm, pleasant and cooperative. Problem: Fall Injury Risk Goal: Absence of Fall and Fall-Related Injury Outcome: Ongoing, progressing Fall prevention bundle implementation continued. Problem: Skin Injury Risk Increased Goal: Skin Health and Integrity Outcome: Ongoing, progressing Patient able to reposition self/weight shift independently. Surgical incisions monitored, no s/s of bleeding or infection. Problem: Activity Intolerance (Cardiovascular Surgery) Goal: Improved Activity Tolerance Outcome: Ongoing, progressing Patient up in chair. Goal for today is to increase activity to seven walks in the chase. Problem: Pain (Cardiovascular Surgery) Goal: Acceptable Pain Control Outcome: Ongoing, progressing Pain control plan reviewed with patient. Pain level monitored. Patient medicated per Jul or adequate pain control. lan of Inocente - Aron Valladares RN - 02/19/2020 6:22 AM PDT Problem: Adult Inpatient Plan of Care Goal: Plan of Care Review Outcome: Ongoing, progressing Plan of care reviewed with pt. All questions answered at this time. Problem: Fall Injury Risk Goal: Absence of Fall and Fall-Related Injury Outcome: Ongoing, progressing Pt very impulsive at night, tries to get OOB suddenly. Bed in low, locked position with s doreen rails up per protocol. Bed alarm and chair alarm activated. Fall mat in place. Call ligh t within reach with pt education provided. [place] socks on. Sitter or telesitter requested , none available. RN positioned at station outside pt's room. Pt needs continuous reminders to mind his sternal precautions. Hourly rounding performed. No acute events overnight. Chart check complete. lan of Amita Miner OTR/Cody - 02/18/2020 1:36 PM PDTFo rmatting of this note might be different from the original. Occupational Therapy Initial Evaluation Note Recommended discharge disposition: placement for care Post discharge occupational therapy recommendation: other (see comment)(TBD) Equipment Recommendations: shower chair, grab bars, commode (3 in 1) Barriers to community-based discharge Cognitive Impairment, Physical Impairment, Level of assistance for ADLs/mobility, Precautio ns, Pain, and Fall risk Planned Interventions: ADL retraining, balance training, bed mobility training, cognitive r etraining, functional endurance training, strengthening, transfer training Frequency: 3 times/wk for 10 days with reassessment due by 02/28/20 Summary: Initial eval completed. Patient oriented to name and place, somewhat oriented to situation. Max to dependent cue for sternal precautions. patient assisted with bed mobility, sit to stand and short distance ambulation to door and back with RN. patient assisted with use of the urinal. Patient confused and requiring verbal cues for all mobility and sternal p recautions. Patient does require coaxing to actively participate. Patient with benefit from OT in order to return to his prior level of functioning. Patient has roommates who live with him and 2 sons that live in [place]. patient also reported that he has a dog. VSS, patient is ea sily SOB and requires rest periods Living Environment Lives With: other relative(s) (specify), other (see comments)(roommate) Living Arrangements: house Number of Stairs to Enter Home: 1 Transportation Available: family or friend will provide Living Environment Comment: BR: has a tub/shower, has wheelchair Prior Functional Level Comment: independent with ADL's, drive, cooked per patient, unsure o f accuracy, has 2 boys both live in [place] Precautions Precaution Comment: wound vac Precautions/Limitations: falls, sternal Cognitive Assessment Cognitive Comments: patient able to follow simple directions at times with moderate verbal and tactile cues. some joking around noticed when asking orientation questions. Orientation: place, situation Impairments Found (describe specific impairments): aerobic capacity/endurance, arousal, att ention, and cognition, functional endurance/activity tolerance, gait, locomotion, and balanc e Sensory Assessment Sensation Comments: no reports of numbness or tingling in arms Vision Comments: wears glasses, unable to read the clock Toileting Assessment/Training Toileting Assess/Train, Comment: patient urinated seated EOB Toileting, Level of Ferry: maximal assist (25% patient effort) Toileting Assess/Train, Position: sitting Toileting Impairments: strength decreased, impaired balance Bed Mobility Roll Right, Level of Ferry: maximal assist (25% patient effort) Sit to Supine, Level of Ferry: maximal assist (25% patient effort), 2 person assist required Safety Issues: decreased use of arms for pushing/pulling, decreased use of legs for bridgin g/pushing Impairments: strength decreased, impaired balance Transfers Sit-Stand, Level of Ferry: moderate assist (50% patient effort), 2 person assist req uired Stand-Sit, Level of Ferry: moderate assist (50% patient effort), 2 person assist req uired [id number], Assistive Device: gait belt(4 wheel platform walker) ROM Comments: limited to sternal precautions Strength Comments: limited by sternal precautions Balance Balance Comments: used high platform walker to ambulate to door and back. Sitting Balance: Static: good balance Sitting Balance: Dynamic: good balance Standing Balance: Static: fair balance Standing Balance: Dynamic: poor balance Goals Reflects last filed data and may be from multiple contributors. Grooming Goal Most Recent Value LTG Status new at 02/18/2020 1336 LTG Ferry Level modified independent at 02/18/2020 1336 LTG Position sitting, edge of bed at 02/18/2020 1336 LTG Adaptive Equipment none at 02/18/2020 1336 UB Dressing Goal Most Recent Value LTG Status new at 02/18/2020 1336 LTG Ferry Level modified independent at 02/18/2020 1336 LTG Adaptive Equipment none at 02/18/2020 1336 lan of Care - Carlos Kahn, PT, DPT - 02/18/2020 10:45 AM PDTFormatting of this note might be differe nt from the original. Physical Therapy Treatment Note Recommended discharge disposition: prison facility Post discharge physical therapy recommendation: minimum 5 days of therapy/week, will benef it from structured setting Equipment Recommendations: 2 wheeled walker (FWW) Barriers to community-based discharge Physical Impairment, Level of assistance for ADLs/mobility, Precautions, and Fall risk Recommended Frequency: twice a day for 7 days with reassessment due by 02/22/20 Summary: Pt. is in the bed. He requires encouragement to participate. Pt. continues to d emonstrates considerable trunk flexion and shuffling gait. He was able to increase gait dis tance slightly however required extensive encouragement as he "just wanted to go to the [place] " rather than attempting to mobilize further. He required 4-5 standing rest breaks due to fatigue. VSS throughout. Cognitive Assessment Cognitive Comments: irritable Mood/Behavior: labile Orientation: oriented x 4 Bed Mobility Supine to Sit, Level of Ferry: maximal assist (25% patient effort) Transfers Sit-Stand, Level of Ferry: moderate assist (50% patient effort) Gait Level of Ferry: minimal assist (75% patient effort), moderate assist (50% patient ef fort) Assistive Device: gait belt(HPW) Distance (feet): 30, 20, 20 Additional Documentation: pattern, deviations, safety, impairments Gait Pattern Analysis: swing-to gait Gait Deviations: aileen decreased, step length decreased Safety Issues: sequencing ability decreased, balance decreased during turns Balance Sitting Balance: Static: good balance Sitting Balance: Dynamic: good balance Standing Balance: Static: fair balance Standing Balance: Dynamic: poor balance Goals Reflects last filed data and may be from multiple contributors. All Bed Mobility Goal Most Recent Value LTG Ferry Level minimum assist (75% patient effort) at 02/15/2020 1100 All Transfers Goal Most Recent Value LTG Ferry Level stand by assist at 02/15/2020 1100 Gait Goal Most Recent Value LTG Ferry Level stand by assist at 02/15/2020 1100 LTG Assistive Device 4 wheeled walker (4WW) at 02/15/2020 1100 LTG Distance (feet) 300 at 02/15/2020 1100 lan of Care - Nya Mcaky RN - 02/18/2020 8:29 AM PDTPatient A&O x4, but impulsive. In normal si nus rhythm. Patient up in chair, up walking to the doorway/in the hallway x6 this shift, was able to do a small loop in the chase this last walk. Has fair appetite. End of shift chart check done. Care plan note: Problem: Adult Inpatient Plan of Care Goal: Plan of Care Review Outcome: Ongoing, progressing Plan of care and daily goals discussed with patient; pt's questions answered, all care exp lained. Problem: Adult Inpatient Plan of Care Goal: Absence of Hospital-Acquired Illness or Injury Outcome: Ongoing, progressing Safe environment maintained. Problem: Adjustment to Surgery (Cardiovascular Surgery) Goal: Optimal Coping with Heart Surgery Outcome: Ongoing, progressing Patient is calm, pleasant and cooperative. Problem: Fall Injury Risk Goal: Absence of Fall and Fall-Related Injury Outcome: Ongoing, progressing Fall prevention bundle implementation continued. Problem: Skin Injury Risk Increased Goal: Skin Health and Integrity Outcome: Ongoing, progressing Patient able to reposition self/weight shift independently. Surgical incisions monitored, no s/s of bleeding or infection. Problem: Activity Intolerance (Cardiovascular Surgery) Goal: Improved Activity Tolerance Outcome: Ongoing, progressing Patient up in chair. Goal for today is to increase activity to seven walks in the chase. Problem: Pain (Cardiovascular Surgery) Goal: Acceptable Pain Control Outcome: Ongoing, progressing Pain control plan reviewed with patient. Pain level monitored. Patient medicated per Jul or adequate pain control. lan of Aron Guerra RN - 02/18/2020 5:42 AM PDT Problem: Fall Injury Risk Goal: Absence of Fall and Fall-Related Injury Outcome: Ongoing, not progressing RN assumed care of pt @ 0015 from another RN. During assessment, RN noted bed alarm not ac tivated, and bed alarm broken (metal piece bent/broken). No other beds available. Bed in lo w, locked position with side rails up per protocol. Call light within reach, but pt impulsiv e (appears to sundown at night, per staff). RN delegated placing tab alarm under pt in bed to POOL TABLE OPERATOR (RN needed to perform blood transfusion and place soliman on other pts). RN received ca ll from tele that pt had likely removed his tele leads. RN rushed to bedside, pt had climbed over side rail and was sitting on floor with arm on bed. Full assessment performed. MS inta ct, wound vac in place, no apparent injuries except a scraped elbow from the side rail. Staf f assisted RN in returning pt to bed using ceiling lift (pt does not observe his sternal pre cautions well). POOL TABLE OPERATOR states she forgot to place tab alarm. But RN should have double-checke d that task had been performed. Full VS performed. HR 114 (returned to 80's shortly thereaf ter), SBP 140's, SpO2 96%, RR 18. Pt answers LOC questions correctly. Sitter requested. No ne available. Telesitter requested, but none available. Tab alarm placed, POOL TABLE OPERATOR monitoring pt from station outside pt window. Fall mat in place. Pt education provided, but pt continues t o be impulsive. All cares & concerns will be passed on to dayshift. Hourly rounding performed. Message left with PA on fall. Chart check complete.Electronically signed by Aron Valladares RN at 02/17 7:38 AM PDTPlan of Erick Laura RN - 02/17/2020 5:14 PM PDT Problem: Activity Intolerance (Cardiovascular Surgery) Goal: Improved Activity Tolerance Outcome: Ongoing, not progressing Patient working with PT. Able to ambulate to door today and back to chair. Also able to am bulate to the restroom x2 with RN assist. Reiterated sternal precautions. Problem: Adjustment to Surgery (Cardiovascular Surgery) Goal: Optimal Coping with Heart Surgery Outcome: Ongoing, progressing Patient aware of new functional levels and course of rehab. Positive affirmation provided and encouragement of setting realistic recovery goals discussed. Problem: Pain (Cardiovascular Surgery) Goal: Acceptable Pain Control Outcome: Ongoing, progressing Transitioned to tramadol PO. Pain much improved this shift. Problem: Respiratory Compromise (Cardiovascular Surgery) Goal: Effective Oxygenation and Ventilation Outcome: Ongoing, progressing Able to wean o2 via nc to 4L today. Encouraged coughing and deep breathing every 1 hour 5x . Also reiterated use of incentive spirometer, and assisted every 1 hour 5-10x as tolerated. Patient coughing more independently with ndiaye secretions noted. lan of Inocente - Astrid Maharaj RN - 02/17/2020 9:33 AM PDTCare Management Initial Assessment Readmission Risk: Medium Pt admitted with CAD. He lives at home and is independent with ADLs. He does not use a wa lker, cane, oxygen, etc. Therapies recommending SNF. Status Prior to Admission or Illness Arrival From: admitted as an inpatient, home or self-care Lives With: alone Living Arrangements: house Caregiver For: no one Functional Status: Independent. Transportation Available: family or friend will provide Care Management Concerns Readmission Within Last 30 Days: no. PCP: Wing Justice PA-C Contact Information Family Contact Information: Name: Valerie . [place] Needs Assessment Current Outpt/Agency/Support Groups: none Services Anticipated at Discharge: prison facility Equipment Used at Home: none Initial Plan Anticipated Discharge Disposition: prison facility Electronically signed: Astrid Maharaj RN 02/17/2020 9:33 AM PDT lan of Arvind North PT - 02/17/2020 8:18 AM PDT Physical Therapy Treatment Note Recommended discharge disposition: prison facility Post discharge physical therapy recommendation: will benefit from structured setting Equipment Recommendations: (TBD) Barriers to community-based discharge Cognitive Impairment, Physical Impairment, Level of assistance for ADLs/mobility, Pain, and Fall risk Recommended Frequency: twice a day for 7 days with reassessment due by 02/22/20 Summary: Pt seated in chair. Vitals 110/62, HR in the 80's elevated 100's BPM with activit y. SpO2 in the 90's but desats to 85 with activity. [place] assistance for sternal precations th ough he is able to verbalize precautions. Shallow breathing throughout, he does respond to V I for deeper breathing. Shuffling gait until returning to chair then he progresses to a step to pattern. end of session vitals HR 84, BP 129/72, SpO2 89% on 4 L nc. Precautions Precaution Comment: Impulsive Precautions/Limitations: falls, sternal Cognitive Assessment Orientation: oriented x 4 Arousal Level: opens eyes spontaneously Speech: spontaneous, logical Transfers Sit-Stand, Level of Ferry: moderate assist (50% patient effort) Stand-Sit, Level of Ferry: moderate assist (50% patient effort) [id number], Assistive Device: gait belt Gait Gait Comments: Forward flexed rounded shoulders and forward head posture, pt unable to obta in improved posture Level of Ferry: moderate assist (50% patient effort) Assistive Device: gait belt, other (see comments)(HPW) Distance (feet): 20 Balance Sitting Balance: Static: good balance Sitting Balance: Dynamic: good balance Standing Balance: Static: fair balance Standing Balance: Dynamic: poor balance Exercises Exercise Comments: IX x 10 to 750 mL Goals Reflects last filed data and may be from multiple contributors. All Bed Mobility Goal Most Recent Value LTG Ferry Level minimum assist (75% patient effort) at 02/15/2020 1100 All Transfers Goal Most Recent Value LTG [place]erry Level stand by assist at 02/15/2020 1100 Gait Goal Most Recent Value LTG Ferry Level stand by assist at 02/15/2020 1100 LTG Assistive Device 4 wheeled walker (4WW) at 02/15/2020 1100 LTG Distance (feet) 300 at 02/15/2020 1100 PT Time Calculation Individual Start Time: 737 Individual Stop Time: 817 Individual Total Time: 40 PT Total Treatment Time: 40 lan of Care - Edmond Galindo RN - 02/16/2020 9:08 PM PDT Problem: Adult Inpatient Plan of Care Goal: Absence of Hospital-Acquired Illness or Injury Outcome: Ongoing, progressing Note: DVT and PUD prophylaxis being provided. Skin integrity protected. Fall prevention saf ety maintained. Patient using incentive spirometer with encouragement. Goal: Optimal Comfort and Wellbeing Outcome: Ongoing, progressing Problem: Fall Injury Risk Goal: Absence of Fall and Fall-Related Injury Outcome: Ongoing, progressing Problem: Skin Injury Risk Increased Goal: Skin Health and Integrity Outcome: Ongoing, progressing Edmond Galindo RN 9 :08 PM PDTPlan of Care - Tod Danielson RN - 02/16/2020 6:09 PM PDT Problem: Adult Inpatient Plan of Care Goal: Readiness for Transition of Care Outcome: Ongoing, progressing Patient became agitated, uncooperative, and aggressive near noon during PT, provider was no tified and dex was started. Patient tolerated dex very well and became calm and cooperative and PT was able to return and finish ambulating patient around the room and back to bed for the evening. Patient stayed in the ICU due to the agitation, transition to step down will be reevaluated tomorrow. Problem: Skin Injury Risk Increased Goal: Skin Health and Integrity Outcome: Ongoing, progressing Patient was calm and cooperative this evening and was able to ambulate around the room and back to bed with PT. Patient is also able to adjust himself in bed and cough & deep breath i ndependently. Will continue to monitor.Electronically signed by Tod Danielson RN at 02/15 6:12 PM PDTPlan of Care - Wisam Ma, PT - 02/16/2020 5:30 PM PDT Physical Therapy Treatment Note Recommended discharge disposition: prison facility Post discharge physical therapy recommendation: will benefit from structured setting Equipment Recommendations: (Defer to facility) Barriers to community-based discharge Cognitive Impairment, Physical Impairment, Level of assistance for ADLs/mobility, and Lack of social support Recommended Frequency: twice a day for 7 days with reassessment due by 02/22/20 Summary: Patient in the chair upon PT arrival. Vitals at rest in sitting: HR 92, BP 172/77 , SpO2 93% w/ 3L ([place]). Remains confused it appears. Often talking to himself and appears at times non-sensical. He remains with very rapid, shallow breaths. During attempts to use IS u nable to achieve 500 mL. Is clearly disoriented, often asking "what city am I in" or being s urprised he is in the hospital. Poor attention to task is also noted with pt requiring compl ete [id number] assistance for sternal precautions. Able to complete steps and sequence s ome mobility with the platform, but requires max encouragement. RN present throughout. Pt ap pears notably anxious from his confusion. He is in bed after activity. VSS. Pressures in the 130s/70s in supine. Rates pain at 10/10. Precautions Precaution Comment: Impulsivity Precautions/Limitations: falls, sternal Cognitive Assessment Orientation: disoriented to, place, situation Bed Mobility Additional Documentation: rolling, supine to/from sit Roll Right, Level of Ferry: maximal assist (25% patient effort) Sit to Supine, Level of Ferry: maximal assist (25% patient effort) Safety Issues: decreased use of arms for pushing/pulling, decreased use of legs for bridgin g/pushing Impairments: strength decreased, impaired balance Transfers Sit-Stand, Level of Ferry: moderate assist (50% patient effort) Stand-Sit, Level of Ferry: moderate assist (50% patient effort) [id number], Assistive Device: gait belt Gait Gait Comments: forward flexed, shuffled, symmetrical steps noted Level of Ferry: minimal assist (75% patient effort) Assistive Device: gait belt, other (see comments) Distance (feet): 6 Goals Reflects last filed data and may be from multiple contributors. All Bed Mobility Goal Most Recent Value LTG Ferry Level minimum assist (75% patient effort) at 02/15/2020 1100 All Transfers Goal Most Recent Value LTG [place]erry Level stand by assist at 02/15/2020 1100 Gait Goal Most Recent Value LTG Ferry Level stand by assist at 02/15/2020 1100 LTG Assistive Device 4 wheeled walker (4WW) at 02/15/2020 1100 LTG Distance (feet) 300 at 02/15/2020 1100 PT Time Calculation Individual Start Time: 1637 Individual Stop Time: 1707 Individual Total Time: 30 PT Total Treatment Time: 30 lan of Care - Wisam An, PT - 02/16/2020 11:00 AM PDT Physical Therapy Treatment Note Recommended discharge disposition: prison facility Post discharge physical therapy recommendation: will benefit from structured setting Equipment Recommendations: other (see comments)(TBD) Barriers to community-based discharge Cognitive Impairment, Physical Impairment, Level of assistance for ADLs/mobility, and Lack of social support Recommended Frequency: twice a day for 7 days with reassessment due by 02/22/20 Summary: Patient in the chair upon PT arrival, appears notably more confused and disorient ed. He also appears anxious, often taking rapid shallow breaths and repeating "I don't know what happened". He did not appear oriented to place either. He needs complete assistance wit h sternal precautions and often is attempting to push himself up and reposition in the chair heavily with use of the UEs. Very poor activity tolerance. Pt unable to attempt any meaning ful gait training today, stating that he is hurting too much. RN is aware and addressing. Pt in the chair after all activity. SNF is indicated. Vitals at rest in sitting: HR 81, BP 104 /58, SpO2 94% w/ 4L ([place]).VSS after activity despite pt's increasing pain and anxiety. Precautions Precaution Comment: Slightly impulsive Precautions/Limitations: falls, sternal Cognitive Assessment Orientation: disoriented to, place, situation Arousal Level: opens eyes spontaneously Transfers Sit-Stand, Level of Ferry: moderate assist (50% patient effort) Stand-Sit, Level of Ferry: moderate assist (50% patient effort) [id number], Assistive Device: gait belt Impairments: strength decreased, impaired balance, pain Gait Gait Comments: Unable to progress today, limited by pain Goals Reflects last filed data and may be from multiple contributors. All Bed Mobility Goal Most Recent Value LTG Ferry Level minimum assist (75% patient effort) at 02/15/2020 1100 All Transfers Goal Most Recent Value LTG [place] Level stand by assist at 02/15/2020 1100 Gait Goal Most Recent Value LTG [place]erry Level stand by assist at 02/15/2020 1100 LTG Assistive Device 4 wheeled walker (4WW) at 02/15/2020 1100 LTG Distance (feet) 300 at 02/15/2020 1100 PT Time Calculation Individual Start Time: 1005 Individual Stop Time: 1048 Individual Total Time: 43 PT Total Treatment Time: 43 lan of Inocente - Edmond Ascencio RN - 02/15/2020 11:47 PM PDT Problem: Adult Inpatient Plan of Care Goal: Absence of Hospital-Acquired Illness or Injury Outcome: Ongoing, progressing Goal: Optimal Comfort and Wellbeing Outcome: Ongoing, progressing Note: Patient provided PRN PO oxycodone for pain. Have not had to give IV PRNs this shift. Problem: Fall Injury Risk Goal: Absence of Fall and Fall-Related Injury Outcome: Ongoing, progressing Note: Patient able to stand and transfer with 2 person staff assist. No falls. Edmond Galindo RN 11 :47 PM PDTPlan of Wisam Boo PT - 02/15/2020 5:15 PM PDT Physical Therapy Treatment Note Recommended discharge disposition: prison facility Post discharge physical therapy recommendation: will benefit from structured setting Equipment Recommendations: (TBD) Barriers to community-based discharge Physical Impairment and Level of assistance for ADLs/mobility Recommended Frequency: twice a day for 7 days with reassessment due by 02/22/20 Summary: Patient in the chair upon PT arrival, appears impulsive and in significant pain. He needs complete assistance with sternal precautions. Pt reports slight improvement to comf ort in standing. Pt continues to be very resistant to progressing mobility but able to compl ete multiple bouts of standing and marching with the HPFW. Pt in the chair after activity, n eeds met. Vitals at rest in sitting: HR 78, BP 112/56, SpO2 94% w/ 2L. Vitals after activity in sitting: HR 85, BP 120/59, SpO2 93% w/ 2L. Precautions Precaution Comment: Slightly impulsive Precautions/Limitations: falls, sternal Cognitive Assessment Orientation: oriented x 4 Arousal Level: opens eyes spontaneously Transfers Sit-Stand, Level of Ferry: minimal assist (75% patient effort), moderate assist (50% patient effort) Stand-Sit, Level of Ferry: minimal assist (75% patient effort) [id number], Assistive Device: gait belt Impairments: strength decreased, impaired balance, pain Gait Gait Comments: very limited by pain, forward flexed Level of Ferry: minimal assist (75% patient effort) Assistive Device: gait belt, other (see comments) Distance (feet): 2x2 Goals Reflects last filed data and may be from multiple contributors. All Bed Mobility Goal Most Recent Value LTG [place] Level minimum assist (75% patient effort) at 02/15/2020 1100 All Transfers Goal Most Recent Value LTG [place] Level stand by assist at 02/15/2020 1100 Gait Goal Most Recent Value LTG [place]erry Level stand by assist at 02/15/2020 1100 LTG Assistive Device 4 wheeled walker (4WW) at 02/15/2020 1100 LTG Distance (feet) 300 at 02/15/2020 1100 PT Time Calculation Individual Start Time: 1630 Individual Stop Time: 1703 Individual Total Time: 33 PT Total Treatment Time: 33 lan of Niurka Benavides MSW - 02/15/2020 1:33 PM PDTConsulted with PT. SNF is being recommended as i t appears that pt lives alone. PT recommended that I discuss d/c planning with pt tomorrow a s he is alert bu slightly confused today. Since SNF is being recommended and pt lives in [facility], I will send a referral to [facility] at [facility] which is SNF closest to pt's isa e. Will complete assessment tomorrow.Electronically signed by LAURA Jeff at 0 1:36 PM PDTPlan of Wisam Boo, PT - 02/15/2020 12:28 PM PDTFormatting of t his note might be different from the original. Physical Therapy Initial Evaluation Note Recommended discharge disposition: prison facility Post discharge physical therapy recommendation: will benefit from structured setting Equipment Recommendations: other (see comments)(tbd) Barriers to community-based discharge Physical Impairment, Level of assistance for ADLs/mobility, and Lack of social support Impairments Found (describe specific impairments): functional endurance/activity tolerance, gait, locomotion, and balance, aerobic capacity/endurance Planned Interventions: balance training, bed mobility training, gait training, strengthenin g, transfer training, patient/family education Recommended Frequency: twice a day for 7 days with reassessment due by 02/22/20 Summary: Chart reviewed, evaluation completed. Pt s/p CABGx3. he is in the chair and agree able to evaluation. he appears mildly confused, needs frequent repetition for instruction an d attention to task. Pt has fair functional strength, limited by pain. Pt needs encouragemen t to attempt mobility. Vitals at rest in sitting: HR 79, BP 104/59, SpO2 93% w/ 2L. Vitals a fter activity in sitting: HR 74, BP 118/56, SpO2 92% w/ 2L. Pt able to arise and [facility] Needs only 1 person assist for mobility, 2nd person for line management. pt in the chair after activity, all needs met. Anticipate pt may need SNF placement as he only has wh at appears to be renter roommates that he indicates cannot assist. Living Environment Lives With: alone Living Arrangements: house Home Accessibility: no concerns Number of Stairs to Enter Home: 1 Number of Stairs Within Home: 0 Living Environment Comment: Pt reports that he resides with a "renter" in his house. Very u nclear to specifics Prior Functional Level Comment: Indep at baseline per pt report Precautions Precaution Comment: Slightly impulsive Precautions/Limitations: falls, sternal Cognitive Assessment Cognitive Comments: Appears to have some intermittent confusion at times, can be difficult to get serious answers from pt during assessment Arousal Level: opens eyes spontaneously Speech: logical, spontaneous, clear Transfers Additional Documentation: sit to/from stand Sit-Stand, Level of Ferry: minimal assist (75% patient effort) Stand-Sit, Level of Ferry: minimal assist (75% patient effort) Vjq-Xreik-Vuf, Assistive Device: gait belt Impairments: strength decreased, impaired balance, pain Gait Gait Comments: very limited by pain Level of Ferry: minimal assist (75% patient effort) Assistive Device: gait belt, other (see comments)([facility]) Distance (feet): 3 Muscle Tone Assessment Muscle Tone Assessment: within normal limits Sensory Assessment Sensation Comments: MANNY LE peripheral neuropathy Range of Motion ROM Comments: Limited by sternal precautions Strength Strength Comments: Noted deconditionin in MANNY LEs, limited by sternal precautions in UEs Balance Sitting Balance: Static: good balance Sitting Balance: Dynamic: fair balance Standing Balance: Static: fair balance Standing Balance: Dynamic: poor balance Goals Reflects last filed data and may be from multiple contributors. All Bed Mobility Goal Most Recent Value LTG Ferry Level minimum assist (75% patient effort) at 02/15/2020 1100 All Transfers Goal Most Recent Value LTG Ferry Level stand by assist at 02/15/2020 1100 Gait Goal Most Recent Value LTG Ferry Level stand by assist at 02/15/2020 1100 LTG Assistive Device 4 wheeled walker (4WW) at 02/15/2020 1100 LTG Distance (feet) 300 at 02/15/2020 1100 lan of Care - Niurka Vidal MSW - 02/15/2020 8:51 AM PDTLeft message for SCOTT Padilla ([phone]) request ing a return call to complete assessment.Electronically signed by LAURA Jeff at 8:52 AM PDTPlan of Care - Mehrdad Mae RN - 02/14/2020 10:53 PM PDT Problem: Adult Inpatient Plan of Care Goal: Plan of Care Review Outcome: Ongoing, progressing Goal: Patient-Specific Goal Outcome: Ongoing, progressing Goal: Absence of Hospital-Acquired Illness or Injury Outcome: Ongoing, progressing Goal: Optimal Comfort and Wellbeing Outcome: Ongoing, progressing Goal: Readiness for Transition of Care Outcome: Ongoing, progressing Goal: Rounds/Family Conference Outcome: Ongoing, progressing Problem: Fall Injury Risk Goal: Absence of Fall and Fall-Related Injury Outcome: Ongoing, progressing Problem: Skin Injury Risk Increased Goal: Skin Health and Integrity Outcome: Ongoing, progressing p Note - Cj Faustin MD - 02/14/2020 12:06 PM [facility] OPERATIVE REPORT CJ FAUSTIN MD Patient: MILES ASH Admitting: CJ FAUSTIN MR #: [id number] LOC: PT TYPE: Adm Date: 02/14/2020 : 1955 DATE OF PROCEDURE: 02/14/2020. PREOPERATIVE DIAGNOSES: 1. Status post inferior wall myocardial infarction. 2. Status post percutaneous coronary intervention and stenting of the right posterior desc ending artery. 3. Significant residual coronary artery disease involving the left anterior descending, di agonal and obtuse marginal branches. 4. Ongoing tobacco abuse. 5. Hypertension. 6. Diabetes mellitus. 7. Cerebrovascular accident. POSTOPERATIVE DIAGNOSES: 1. Status post inferior wall myocardial infarction. 2. Status post percutaneous coronary intervention and stenting of the right posterior desc ending artery. 3. Significant residual coronary artery disease involving the left anterior descending, di agonal and obtuse marginal branches. 4. Ongoing tobacco abuse. 5. Hypertension. 6. Diabetes mellitus. 7. Cerebrovascular accident. PROCEDURES PERFORMED: 1. Coronary artery bypass grafting times 3; left internal mammary artery to left anterior descending; saphenous vein graft to diagonal; saphenous vein graft to obtuse marginal 2. 2. Endovascular vein harvesting. SURGEON: Cj Faustin MD. FISH AND WILDLIFE TECHNICIAN: ANTHONY Arevalo. ANESTHESIOLOGIST: Monica Harley MD. ANESTHESIA: General endotracheal. INTRAVENOUS FLUIDS: 2000. ESTIMATED BLOOD LOSS: Recycled. DRAINS: 1. #28 chest tube. 2. #24 chest tube. INTRAOPERATIVE COMPLICATIONS: None. INDICATIONS: The patient is a 64-year-old white male with significant past medical history of hypertension, diabetes mellitus and ongoing tobacco abuse, who was admitted on 0 with chest pain. He was diagnosed with an acute inferior wall myocardial infarction and u nderwent PCI and stenting of the RPDA. The patient had significant residual disease in the left system including a high-grade proximal LAD lesion involving a large diagonal branch. There was also moderate disease in the circumflex. The patient was treated with antiplatele t therapy for his stent for 3 months. I saw the patient in consultation recently. I recomm ended surgical revascularization for the left side of the heart. Risks and benefits includi ng but not limited to bleeding, infection, damage to heart, lungs and kidneys, stroke, were discussed at length with the patient. He is at increased risk for pulmonary complica tions secondary to his ongoing tobacco abuse. He understood the risks. He now presents for surgery. FINDINGS: 1. The sternum was osteoporotic. 2. The left internal mammary artery was small, but had excellent flow. 3. The greater saphenous vein was of adequate caliber, measuring approximately 2-2.5 mm. 4. The LAD was 1.5 mm in the mid portion. The diagonal artery was 1.5 mm. The obtuse mar ginal branch was 1.75 mm. DESCRIPTION OF PROCEDURE: The patient was identified and taken to the operating room where he was placed supine on the operating table. After the adequate induction of general endot yuniel anesthesia, the patient's neck, chest, abdomen and lower extremities were prepped an d draped in the usual sterile fashion. Greater saphenous vein was harvested from the right lower extremity using endoscopic techniques. All side branches were ligated with 4-0 silk ties. Midline incision was made of sternum, carried down to the sternal table. Sternum was divided in the midline. The left internal mammary artery was taken down from the level of left subclavian vein down to the bifurcation at the xiphoid process. The patient was then s ystemically heparinized. The pedicle was divided distally. There was good flow from the ma mmary artery. It was placed in a papaverine sponge. Sternal retractor was put into place. Pericardium was opened in the midline and suspended. When the ACT had reached 400, the pa tient was cannulated via the distal ascending aorta and the right atrial appendage. Cardiop legia needle was placed in the proximal ascending aorta. Cardiopulmonary bypass was then in stituted without difficulty. The heart decompressed. The patient's temperature was allowed to drift. The aorta was then cross-clamped and heart was arrested with 1.25 L of cold ant egrade cardioplegia solution. Myocardial septal temperatures were measured and kept below 1 5 degrees. Cardioplegia was given every 15 minutes during the cross-clamp period. The lateral wall was exposed. OM2 was dissected. An arteriotomy was made and extended. G reater saphenous vein was sewn to OM2 using a running 7-0 Prolene stitch. Vein graft was me asured to length for proximal anastomosis and divided. An aortotomy was made in the left si de of the aorta and extended with aortic punch. Proximal anastomosis was constructed using a running 6-0 Prolene stitch. The diagonal artery was then dissected. An arteriotomy was made and extended. Greater saphenous vein was sewn to the diagonal artery using a running 7 -0 Prolene stitch. The vein graft was measured to length for proximal anastomosis and divid ed. An aortotomy was made in the left side of the aorta and extended with aortic punch. Pr oximal anastomosis was constructed using a running 6-0 Prolene stitch. The patient was rewa rmed. The heart was elevated. The LAD was dissected distally. An arteriotomy was made an d extended. The left internal mammary artery was sewn to the LAD using a running 8-0 Prolen e stitch. The pedicle was tacked to the anterior myocardium using 2 interrupted 6-0 Prolene stitches. The patient was then placed in deep Trendelenburg position with high suction aor tic vent. The cross-clamp was removed. The heart returned to a sinus rhythm after one card ioversion. The distal surgical sites were inspected. There was adequate hemostasis. When the patient's temperature had reached 36.5 degrees, he was weaned from cardiopulmonary bypa ss on minimal inotropic support. He remained hemodynamically stable. Protamine was then gi sunitha to reverse the heparin. The patient was then decannulated in the usual fashion. All kwon rgical sites were inspected. There was adequate hemostasis. Two small incisions were made below the main incision. A #24 right-angle chest tube was placed in the left pleural space . A #28 chest tube was placed anterior to the heart. Sternum was reapproximated with wires in the usual fashion. Subcutaneous tissues and skin were closed with running Vicryl stitch es. Sterile dressing was applied to the wound. The patient tolerated the procedure well an d was transferred to recovery room in stable condition. CJ FAUSTIN MD Dictated by CJ FAUSTIN MD 02/14/2020 12:06:34 Transcribed on 02/14/2020 18:41:26 by job# [id number] Confirmation #: [id number] cc: WING AVERY MD documented in this enco unter Plan of Treatment + +------+--------+ + + | Name | Type | Priori | Associated Diagnoses | Order Schedule | | | | ty | | | + +------+--------+ + + | CBC no Differential | Lab | Routin | CAD in [place] | Expected: | | | | e | artery | 03/04/2020, Expires: | | | | | | 02/20/2021 | + +------+--------+ + + | Comprehensive | Lab | Routin | CAD in [place] | Expected: | | Metabolic Panel | | e | artery | 03/04/2020, Expires: | | | | | | 02/20/2021 | + +------+--------+ + + documented as of this encounter Procedures + +--------+ + + + | Procedure Name | Priori | Date/Time | Associated Diagnosis | Comments | | | ty | | | | + +--------+ + + + | XR CHEST AP PORTABLE | Routin | 2020 | | Results for this | | | e | 6:05 AM | | procedure are in the | | | | PDT | | results section. | + +--------+ + + + | POC GLUCOSE (NON | Routin | 2020 | | Results for this | | ORD) | e | 6:03 AM | | procedure are in the | | | | PDT | | results section. | + +--------+ + + + | CBC WITH | Routin | 2020 | | Results for this | | DIFFERENTIAL | e | 4:42 AM | | procedure are in the | | | | PDT | | results section. | + +--------+ + + + | MAGNESIUM | Routin | 2020 | | Results for this | | | e | 4:42 AM | | procedure are in the | | | | PDT | | results section. | + +--------+ + + + | BASIC METABOLIC | Routin | 2020 | | Results for this | | PANEL | e | 4:42 AM | | procedure are in the | | | | PDT | | results section. | + +--------+ + + + | POC GLUCOSE (NON | Routin | 02/20/2020 | | Results for this | | ORD) | e | 8:36 PM | | procedure are in the | | | | PDT | | results section. | + +--------+ + + + | CORONAVIRUS | Routin | 02/20/2020 | | Results for this | | (COVID-19) NAAT | e | 5:51 PM | | procedure are in the | | | | PDT | | results section. | + +--------+ + + + | POC GLUCOSE (NON | Routin | 02/20/2020 | | Results for this | | ORD) | e | 4:15 PM | | procedure are in the | | | | PDT | | results section. | + +--------+ + + + | POC GLUCOSE (NON | Routin | 02/20/2020 | | Results for this | | ORD) | e | 1:54 PM | | procedure are in the | | | | PDT | | results section. | + +--------+ + + + | POTASSIUM | Timed | 02/20/2020 | | Results for this | | | | 12:27 PM | | procedure are in the | | | | PDT | | results section. | + +--------+ + + + | POC GLUCOSE (NON | Routin | 02/20/2020 | | Results for this | | ORD) | e | 6:44 AM | | procedure are in the | | | | PDT | | results section. | + +--------+ + + + | XR CHEST AP PORTABLE | Routin | 02/20/2020 | | Results for this | | | e | 5:43 AM | | procedure are in the | | | | PDT | | results section. | + +--------+ + + + | CBC WITH | Routin | 02/20/2020 | | Results for this | | DIFFERENTIAL | e | 5:42 AM | | procedure are in the | | | | PDT | | results section. | + +--------+ + + + | MAGNESIUM | Routin | 02/20/2020 | | Results for this | | | e | 5:42 AM | | procedure are in the | | | | PDT | | results section. | + +--------+ + + + | BASIC METABOLIC | Routin | 02/20/2020 | | Results for this | | PANEL | e | 5:42 AM | | procedure are in the | | | | PDT | | results section. | + +--------+ + + + | POC GLUCOSE (NON | Routin | 02/19/2020 | | Results for this | | ORD) | e | 8:52 PM | | procedure are in the | | | | PDT | | results section. | + +--------+ + + + | POC GLUCOSE (NON | Routin | 02/19/2020 | | Results for this | | ORD) | e | 5:06 PM | | procedure are in the | | | | PDT | | results section. | + +--------+ + + + | POTASSIUM | Timed | 02/19/2020 | | Results for this | | | | 12:59 PM | | procedure are in the | | | | PDT | | results section. | + +--------+ + + + | POC GLUCOSE (NON | Routin | 02/19/2020 | | Results for this | | ORD) | e | 11:55 AM | | procedure are in the | | | | PDT | | results section. | + +--------+ + + + | POC GLUCOSE (NON | Routin | 02/19/2020 | | Results for this | | ORD) | e | 8:45 AM | | procedure are in the | | | | PDT | | results section. | + +--------+ + + + | CBC WITH | Routin | 02/19/2020 | | Results for this | | DIFFERENTIAL | e | 6:06 AM | | procedure are in the | | | | PDT | | results section. | + +--------+ + + + | MAGNESIUM | Routin | 02/19/2020 | | Results for this | | | e | 6:06 AM | | procedure are in the | | | | PDT | | results section. | + +--------+ + + + | BASIC METABOLIC | Routin | 02/19/2020 | | Results for this | | PANEL | e | 6:06 AM | | procedure are in the | | | | PDT | | results section. | + +--------+ + + + | XR CHEST AP PORTABLE | Routin | 02/19/2020 | | Results for this | | | e | 5:57 AM | | procedure are in the | | | | PDT | | results section. | + +--------+ + + + | POC GLUCOSE (NON | Routin | 02/18/2020 | | Results for this | | ORD) | e | 9:13 PM | | procedure are in the | | | | PDT | | results section. | + +--------+ + + + | POC GLUCOSE (NON | Routin | 02/18/2020 | | Results for this | | ORD) | e | 5:07 PM | | procedure are in the | | | | PDT | | results section. | + +--------+ + + + | POC GLUCOSE (NON | Routin | 02/18/2020 | | Results for this | | ORD) | e | 11:38 AM | | procedure are in the | | | | PDT | | results section. | + +--------+ + + + | POC GLUCOSE (NON | Routin | 02/18/2020 | | Results for this | | ORD) | e | 7:10 AM | | procedure are in the | | | | PDT | | results section. | + +--------+ + + + | XR CHEST AP PORTABLE | Routin | 02/18/2020 | | Results for this | | | e | 6:26 AM | | procedure are in the | | | | PDT | | results section. | + +--------+ + + + | CBC WITH | Routin | 02/18/2020 | | Results for this | | DIFFERENTIAL | e | 4:28 AM | | procedure are in the | | | | PDT | | results section. | + +--------+ + + + | MAGNESIUM | Routin | 02/18/2020 | | Results for this | | | e | 4:28 AM | | procedure are in the | | | | PDT | | results section. | + +--------+ + + + | BASIC METABOLIC | Routin | 02/18/2020 | | Results for this | | PANEL | e | 4:28 AM | | procedure are in the | | | | PDT | | results section. | + +--------+ + + + | POC GLUCOSE (NON | Routin | 02/17/2020 | | Results for this | | ORD) | e | 9:25 PM | | procedure are in the | | | | PDT | | results section. | + +--------+ + + + | POC GLUCOSE (NON | Routin | 02/17/2020 | | Results for this | | ORD) | e | 5:18 PM | | procedure are in the | | | | PDT | | results section. | + +--------+ + + + | POC GLUCOSE (NON | Routin | 02/17/2020 | | Results for this | | ORD) | e | 3:41 PM | | procedure are in the | | | | PDT | | results section. | + +--------+ + + + | POC GLUCOSE (NON | Routin | 02/17/2020 | | Results for this | | ORD) | e | 1:09 PM | | procedure are in the | | | | PDT | | results section. | + +--------+ + + + | POC GLUCOSE (NON | Routin | 02/17/2020 | | Results for this | | ORD) | e | 11:49 AM | | procedure are in the | | | | PDT | | results section. | + +--------+ + + + | POC GLUCOSE (NON | Routin | 02/17/2020 | | Results for this | | ORD) | e | 10:43 AM | | procedure are in the | | | | PDT | | results section. | + +--------+ + + + | POC GLUCOSE (NON | Routin | 02/17/2020 | | Results for this | | ORD) | e | 7:24 AM | | procedure are in the | | | | PDT | | results section. | + +--------+ + + + | XR CHEST AP PORTABLE | Routin | 02/17/2020 | | Results for this | | | e | 5:45 AM | | procedure are in the | | | | PDT | | results section. | + +--------+ + + + | POC GLUCOSE (NON | Routin | 02/17/2020 | | Results for this | | ORD) | e | 5:17 AM | | procedure are in the | | | | PDT | | results section. | + +--------+ + + + | CBC WITH | Routin | 02/17/2020 | | Results for this | | DIFFERENTIAL | e | 3:10 AM | | procedure are in the | | | | PDT | | results section. | + +--------+ + + + | MAGNESIUM | Routin | 02/17/2020 | | Results for this | | | e | 3:10 AM | | procedure are in the | | | | PDT | | results section. | + +--------+ + + + | BASIC METABOLIC | Routin | 02/17/2020 | | Results for this | | PANEL | e | 3:10 AM | | procedure are in the | | | | PDT | | results section. | + +--------+ + + + | POC GLUCOSE (NON | Routin | 02/17/2020 | | Results for this | | ORD) | e | 3:08 AM | | procedure are in the | | | | PDT | | results section. | + +--------+ + + + | POC GLUCOSE (NON | Routin | 02/17/2020 | | Results for this | | ORD) | e | 12:55 AM | | procedure are in the | | | | PDT | | results section. | + +--------+ + + + | POC GLUCOSE (NON | Routin | 02/16/2020 | | Results for this | | ORD) | e | 10:51 PM | | procedure are in the | | | | PDT | | results section. | + +--------+ + + + | POTASSIUM | STAT | 02/16/2020 | | Results for this | | | | 8:48 PM | | procedure are in the | | | | PDT | | results section. | + +--------+ + + + | POC GLUCOSE (NON | Routin | 02/16/2020 | | Results for this | | ORD) | e | 8:47 PM | | procedure are in the | | | | PDT | | results section. | + +--------+ + + + | POC GLUCOSE (NON | Routin | 02/16/2020 | | Results for this | | ORD) | e | 7:36 PM | | procedure are in the | | | | PDT | | results section. | + +--------+ + + + | POC GLUCOSE (NON | Routin | 02/16/2020 | | Results for this | | ORD) | e | 5:26 PM | | procedure are in the | | | | PDT | | results section. | + +--------+ + + + | POC GLUCOSE (NON | Routin | 02/16/2020 | | Results for this | | ORD) | e | 3:16 PM | | procedure are in the | | | | PDT | | results section. | + +--------+ + + + | POC GLUCOSE (NON | Routin | 02/16/2020 | | Results for this | | ORD) | e | 1:08 PM | | procedure are in the | | | | PDT | | results section. | + +--------+ + + + | POC GLUCOSE (NON | Routin | 02/16/2020 | | Results for this | | ORD) | e | 11:01 AM | | procedure are in the | | | | PDT | | results section. | + +--------+ + + + | POTASSIUM | Routin | 02/16/2020 | | Results for this | | | e | 9:50 AM | | procedure are in the | | | | PDT | | results section. | + +--------+ + + + | POC GLUCOSE (NON | Routin | 02/16/2020 | | Results for this | | ORD) | e | 8:57 AM | | procedure are in the | | | | PDT | | results section. | + +--------+ + + + | POC GLUCOSE (NON | Routin | 02/16/2020 | | Results for this | | ORD) | e | 6:54 AM | | procedure are in the | | | | PDT | | results section. | + +--------+ + + + | XR CHEST AP PORTABLE | Routin | 02/16/2020 | | Results for this | | | e | 5:35 AM | | procedure are in the | | | | PDT | | results section. | + +--------+ + + + | POC GLUCOSE (NON | Routin | 02/16/2020 | | Results for this | | ORD) | e | 5:14 AM | | procedure are in the | | | | PDT | | results section. | + +--------+ + + + | POC GLUCOSE (NON | Routin | 02/16/2020 | | Results for this | | ORD) | e | 4:11 AM | | procedure are in the | | | | PDT | | results section. | + +--------+ + + + | CBC WITH | Routin | 02/16/2020 | | Results for this | | DIFFERENTIAL | e | 3:08 AM | | procedure are in the | | | | PDT | | results section. | + +--------+ + + + | MAGNESIUM | Routin | 02/16/2020 | | Results for this | | | e | 3:08 AM | | procedure are in the | | | | PDT | | results section. | + +--------+ + + + | BASIC METABOLIC | Routin | 02/16/2020 | | Results for this | | PANEL | e | 3:08 AM | | procedure are in the | | | | PDT | | results section. | + +--------+ + + + | POC GLUCOSE (NON | Routin | 02/16/2020 | | Results for this | | ORD) | e | 3:06 AM | | procedure are in the | | | | PDT | | results section. | + +--------+ + + + | POC GLUCOSE (NON | Routin | 02/16/2020 | | Results for this | | ORD) | e | 1:59 AM | | procedure are in the | | | | PDT | | results section. | + +--------+ + + + | POC GLUCOSE (NON | Routin | 02/16/2020 | | Results for this | | ORD) | e | 12:55 AM | | procedure are in the | | | | PDT | | results section. | + +--------+ + + + | POC GLUCOSE (NON | Routin | 02/15/2020 | | Results for this | | ORD) | e | 11:17 PM | | procedure are in the | | | | PDT | | results section. | + +--------+ + + + | POC GLUCOSE (NON | Routin | 02/15/2020 | | Results for this | | ORD) | e | 10:14 PM | | procedure are in the | | | | PDT | | results section. | + +--------+ + + + | POC GLUCOSE (NON | Routin | 02/15/2020 | | Results for this | | ORD) | e | 7:55 PM | | procedure are in the | | | | PDT | | results section. | + +--------+ + + + | POTASSIUM | STAT | 02/15/2020 | | Results for this | | | | 6:16 PM | | procedure are in the | | | | PDT | | results section. | + +--------+ + + + | PHOSPHORUS | Routin | 02/15/2020 | | Results for this | | | e | 6:16 PM | | procedure are in the | | | | PDT | | results section. | + +--------+ + + + | MAGNESIUM | Routin | 02/15/2020 | | Results for this | | | e | 6:16 PM | | procedure are in the | | | | PDT | | results section. | + +--------+ + + + | POC GLUCOSE (NON | Routin | 02/15/2020 | | Results for this | | ORD) | e | 5:08 PM | | procedure are in the | | | | PDT | | results section. | + +--------+ + + + | POC GLUCOSE (NON | Routin | 02/15/2020 | | Results for this | | ORD) | e | 2:59 PM | | procedure are in the | | | | PDT | | results section. | + +--------+ + + + | POC GLUCOSE (NON | Routin | 02/15/2020 | | Results for this | | ORD) | e | 12:54 PM | | procedure are in the | | | | PDT | | results section. | + +--------+ + + + | POC GLUCOSE (NON | Routin | 02/15/2020 | | Results for this | | ORD) | e | 10:45 AM | | procedure are in the | | | | PDT | | results section. | + +--------+ + + + | POC GLUCOSE (NON | Routin | 02/15/2020 | | Results for this | | ORD) | e | 9:41 AM | | procedure are in the | | | | PDT | | results section. | + +--------+ + + + | POC GLUCOSE (NON | Routin | 02/15/2020 | | Results for this | | ORD) | e | 8:33 AM | | procedure are in the | | | | PDT | | results section. | + +--------+ + + + | POC GLUCOSE (NON | Routin | 02/15/2020 | | Results for this | | ORD) | e | 7:02 AM | | procedure are in the | | | | PDT | | results section. | + +--------+ + + + | POC GLUCOSE (NON | Routin | 02/15/2020 | | Results for this | | ORD) | e | 5:37 AM | | procedure are in the | | | | PDT | | results section. | + +--------+ + + + | XR CHEST AP PORTABLE | Routin | 02/15/2020 | | Results for this | | | e | 5:25 AM | | procedure are in the | | | | PDT | | results section. | + +--------+ + + + | CBC WITH | Routin | 02/15/2020 | | Results for this | | DIFFERENTIAL | e | 3:49 AM | | procedure are in the | | | | PDT | | results section. | + +--------+ + + + | MAGNESIUM | Routin | 02/15/2020 | | Results for this | | | e | 3:49 AM | | procedure are in the | | | | PDT | | results section. | + +--------+ + + + | BASIC METABOLIC | Routin | 02/15/2020 | | Results for this | | PANEL | e | 3:49 AM | | procedure are in the | | | | PDT | | results section. | + +--------+ + + + | POC GLUCOSE (NON | Routin | 02/15/2020 | | Results for this | | ORD) | e | 3:48 AM | | procedure are in the | | | | PDT | | results section. | + +--------+ + + + | POC GLUCOSE (NON | Routin | 02/15/2020 | | Results for this | | ORD) | e | 1:02 AM | | procedure are in the | | | | PDT | | results section. | + +--------+ + + + | POTASSIUM | STAT | 02/14/2020 | | Results for this | | | | 11:58 PM | | procedure are in the | | | | PDT | | results section. | + +--------+ + + + | POC GLUCOSE (NON | Routin | 02/14/2020 | | Results for this | | ORD) | e | 11:57 PM | | procedure are in the | | | | PDT | | results section. | + +--------+ + + + | POC GLUCOSE (NON | Routin | 02/14/2020 | | Results for this | | ORD) | e | 10:08 PM | | procedure are in the | | | | PDT | | results section. | + +--------+ + + + | POTASSIUM | STAT | 02/14/2020 | | Results for this | | | | 9:30 PM | | procedure are in the | | | | PDT | | results section. | + +--------+ + + + | POC GLUCOSE (NON | Routin | 02/14/2020 | | Results for this | | ORD) | e | 8:02 PM | | procedure are in the | | | | PDT | | results section. | + +--------+ + + + | POC GLUCOSE (NON | Routin | 02/14/2020 | | Results for this | | ORD) | e | 6:19 PM | | procedure are in the | | | | PDT | | results section. | + +--------+ + + + | POTASSIUM | STAT | 02/14/2020 | | Results for this | | | | 4:09 PM | | procedure are in the | | | | PDT | | results section. | + +--------+ + + + | HC BLOOD GASES ANY | Routin | 02/14/2020 | | Results for this | | COMBINATION | e | 4:02 PM | | procedure are in the | | | | PDT | | results section. | + +--------+ + + + | POC GLUCOSE (NON | Routin | 02/14/2020 | | Results for this | | ORD) | e | 3:57 PM | | procedure are in the | | | | PDT | | results section. | + +--------+ + + + | POC GLUCOSE (NON | Routin | 02/14/2020 | | Results for this | | ORD) | e | 2:51 PM | | procedure are in the | | | | PDT | | results section. | + +--------+ + + + | TRANSFUSE PLATELETS | Routin | 02/14/2020 | | | | | e | 2:38 PM | | | | | | PDT | | | + +--------+ + + + | TRANSFUSE PLATELETS | Routin | 02/14/2020 | | | | | e | 2:37 PM | | | | | | PDT | | | + +--------+ + + + | POC GLUCOSE (NON | Routin | 02/14/2020 | | Results for this | | ORD) | e | 1:46 PM | | procedure are in the | | | | PDT | | results section. | + +--------+ + + + | ECG 12 LEAD | STAT | 02/14/2020 | | Results for this | | | | 1:12 PM | | procedure are in the | | | | PDT | | results section. | + +--------+ + + + | HC BLOOD GASES ANY | Routin | 02/14/2020 | | Results for this | | COMBINATION | e | 12:51 PM | | procedure are in the | | | | PDT | | results section. | + +--------+ + + + | XR CHEST AP PORTABLE | STAT | 02/14/2020 | | Results for this | | | | 12:45 PM | | procedure are in the | | | | PDT | | results section. | + +--------+ + + + | POC GLUCOSE (NON | Routin | 02/14/2020 | | Results for this | | ORD) | e | 12:42 PM | | procedure are in the | | | | PDT | | results section. | + +--------+ + + + | CALCIUM, IONIZED, | Routin | 02/14/2020 | | Results for this | | VENOUS | e | 12:35 PM | | procedure are in the | | | | PDT | | results section. | + +--------+ + + + | PTT | STAT | 02/14/2020 | | Results for this | | | | 12:30 PM | | procedure are in the | | | | PDT | | results section. | + +--------+ + + + | PROTIME INR | STAT | 02/14/2020 | | Results for this | | | | 12:30 PM | | procedure are in the | | | | PDT | | results section. | + +--------+ + + + | FIBRINOGEN | STAT | 02/14/2020 | | Results for this | | | | 12:30 PM | | procedure are in the | | | | PDT | | results section. | + +--------+ + + + | CBC WITH | STAT | 02/14/2020 | | Results for this | | DIFFERENTIAL | | 12:30 PM | | procedure are in the | | | | PDT | | results section. | + +--------+ + + + | MAGNESIUM | STAT | 02/14/2020 | | Results for this | | | | 12:30 PM | | procedure are in the | | | | PDT | | results section. | + +--------+ + + + | HEMOGLOBIN A1C | Routin | 02/14/2020 | | Results for this | | | e | 12:30 PM | | procedure are in the | | | | PDT | | results section. | + +--------+ + + + | BASIC METABOLIC | STAT | 02/14/2020 | | Results for this | | PANEL | | 12:30 PM | | procedure are in the | | | | PDT | | results section. | + +--------+ + + + | ECHO | Routin | 02/14/2020 | | Results for this | | TRANSESOPHAGEAL(JOHN) | e | 12:23 PM | | procedure are in the | | - PERIOPERATIVE | | PDT | | results section. | + +--------+ + + + | POC CG 4, ISTAT | Routin | 02/14/2020 | | Results for this | | ARTERIAL | e | 12:18 PM | | procedure are in the | | | | PDT | | results section. | + +--------+ + + + | PRODUCT: PLATELET | Routin | 02/14/2020 | | Results for this | | PHERESIS, | e | 12:05 PM | | procedure are in the | | LEUKOREDUCED | | PDT | | results section. | + +--------+ + + + | POC RIGOBERTO 4, ISJOSE | Routin | 02/14/2020 | | Results for this | | ARTERIAL | e | 11:53 AM | | procedure are in the | | | | PDT | | results section. | + +--------+ + + + | POC SATISH BUSTILLO, | Routin | 02/14/2020 | | Results for this | | ARTERIAL | e | 11:48 AM | | procedure are in the | | | | PDT | | results section. | + +--------+ + + + | POC SATISH BUSTILLO, | Routin | 02/14/2020 | | Results for this | | ARTERIAL | e | 11:03 AM | | procedure are in the | | | | PDT | | results section. | + +--------+ + + + | POC CG 4, ISTAT | Routin | 02/14/2020 | | Results for this | | ARTERIAL | e | 10:31 AM | | procedure are in the | | | | PDT | | results section. | + +--------+ + + + | POC RIGOBERTO BUSTILLO8, | Routin | 02/14/2020 | | Results for this | | ARTERIAL | e | 10:28 AM | | procedure are in the | | | | PDT | | results section. | + +--------+ + + + | POC ISTAT, CG8, | Routin | 02/14/2020 | | Results for this | | VENOUS | e | 10:09 AM | | procedure are in the | | | | PDT | | results section. | + +--------+ + + + | SATISH REGAN, | Routin | 02/14/2020 | | Results for this | | ARTERIAL | e | 10:03 AM | | procedure are in the | | | | PDT | | results section. | + +--------+ + + + | SATISH REGAN, | Routin | 02/14/2020 | | Results for this | | ARTERIAL | e | 9:25 AM | | procedure are in the | | | | PDT | | results section. | + +--------+ + + + | SATISH REGAN, | Routin | 02/14/2020 | | Results for this | | ARTERIAL | e | 7:54 AM | | procedure are in the | | | | PDT | | results section. | + +--------+ + + + | PRODUCT: RBC | STAT | 02/14/2020 | | Results for this | | | | 7:04 AM | | procedure are in the | | | | PDT | | results section. | + +--------+ + + + | CBC NO DIFFERENTIAL | Routin | 02/14/2020 | | Results for this | | | e | 7:04 AM | | procedure are in the | | | | PDT | | results section. | + +--------+ + + + | TYPE AND SCREEN | STAT | 02/14/2020 | | Results for this | | | | 7:04 AM | | procedure are in the | | | | PDT | | results section. | + +--------+ + + + | BASIC METABOLIC | Routin | 02/14/2020 | | Results for this | | PANEL | e | 7:04 AM | | procedure are in the | | | | PDT | | results section. | + +--------+ + + + | CORONARY ARTERY | | 02/14/2020 | CAD in [place] | | | BYPASS GRAFT | | 6:53 AM | artery | | | | | PDT | | | + +--------+ + + + | POC GLUCOSE (NON | Routin | 02/14/2020 | | Results for this | | ORD) | e | 6:46 AM | | procedure are in the | | | | PDT | | results section. | + +--------+ + + + | POC CORONAVIRUS | Routin | 02/14/2020 | | Results for this | | (COVID-19) NAAT | e | 6:30 AM | | procedure are in the | | | | PDT | | results section. | + +--------+ + + + documented in this encounter Results XR Chest AP Portable (2020 6:05 AM PDT) + + | Specimen | + + | | + + + + + | Impressions | Performed At | + + + | Decreased hazy opacity in the left lung base, stable hazy opacity in | [facility] | | the right lung base. Similar mild pulmonary edema. Final | | | Report Signed by: Jagdish Mosquera, Katharine Sign Date/Time: 2020 | | | 7:29 AM | | + + + + + + | Narrative | Performed At | + + + | CHEST PORTABLE ONE VIEW CLINICAL INFORMATION: Post open | [facility] | | heart surgery. COMPARISON: XR CHEST AP PORTABLE (02/20/2020); XR | | | CHEST AP PORTABLE (02/19/2020); XR CHEST AP PORTABLE (02/18/2020); | | | FINDINGS: Decreased hazy opacity in the left lung base, stable hazy | | | opacity in the right lung base. Similar mild pulmonary edema. | | | No pneumothorax. Heart size is stable. Similar orientation of | | | sternotomy wires. | | + + + + + | Procedure Note | + + | [facility], [id number] - 2020 7:32 AM PDT | | CHEST PORTABLE ONE VIEW | | | | CLINICAL INFORMATION: | | Post open heart surgery. | | | | COMPARISON: | | XR CHEST AP PORTABLE (02/20/2020); XR CHEST AP PORTABLE (02/19/2020); XR | | CHEST AP PORTABLE (02/18/2020); | | | | FINDINGS: | | Decreased hazy opacity in the left lung base, stable hazy opacity in | | the right lung base. Similar mild pulmonary edema. | | | | No pneumothorax. | | | | Heart size is stable. Similar orientation of sternotomy wires. | | | | IMPRESSION: | | Decreased hazy opacity in the left lung base, stable hazy opacity in | | the right lung base. Similar mild pulmonary edema. | | | | | | | | Final Report Signed by: Jagdish Mosquera Allison | | Sign Date/Time: 2020 7:29 AM | + + + +---------+ + + | Performing | Address | City/State/Zipcode | Phone Number | | Organization | | | | + +---------+ + + | [facility] | | | | + +---------+ + + POC Glucose (2020 6:03 AM PDT) + + + + + + | Component | Value | Ref Range | Performed | Pathologist | | | | | At | Signature | + + + + + + | Glucose, | 106 (H)Comment: Testing | 65 - 99 mg/dL | [facility] | | | POC | performed at [facility] [place] | LAB[address]ATORY | | | | [address];[place], [place] | | | | | | [address] | | | | + + + + + + + + | Specimen | + + | | + + + + + + + | Performing | Address | City/State/Zipcode | Phone Number | | Organization | | | | + + + + + | [facility] | [address] | [place] [address] | [phone] | + + + + + Magnesium (2020 4:42 AM PDT) + + + + + + | Component | Value | Ref Range | Performed | Pathologist | | | | | At | Signature | + + + + + + | Magnesium | 2.0Comment: Testing | 1.7 - 2.4 mg/dL | [facility] | | | | performed at [facility] [place] | | LABORATORY | | | | [address], [place] | | | | | | [address] | | | | + + + + + + + + | Specimen | + + | Blood | + + + + + + + | Performing | Address | City/State/Zipcode | Phone Number | | Organization | | | | + + + + + | [facility] | [address] | [place] [address] | [phone] | + + + + + CBC with Differential (2020 4:42 AM PDT) + + + + + + | Component | Value | Ref Range | Performed | Pathologist | | | | | At | Signature | + + + + + + | WBC | 9.24 | 3.80 - 11.00 | [facility] | | | | | K/uL | LABORATORY | | + + + + + + | Red Blood | 3.47 (L) | 4.20 - 5.70 | [facility] | | | Cells | | M/uL | LABORATORY | | + + + + + + | Hemoglobin | 10.0 (L) | 13.2 - 17.0 | [facility] | | | | | g/dL | LABORATORY | | + + + + + + | Hematocrit | 31.0 (L) | 39.0 - 50.0 % | [facility] | | | | | | LABORATORY | | + + + + + + | MCV | 89.3 | 80.0 - 100.0 fl | [facility] | | | | | | LABORATORY | | + + + + + + | MCH | 28.8 | 27.0 - 34.0 pg | [facility] | | | | | | LABORATORY | | + + + + + + | MCHC | 32.3 | 32.0 - 35.5 | [facility] | | | | | g/dL | LABORATORY | | + + + + + + | RDW-SD | 45.9 | 37 - 53 fl | [facility] | | | | | | LABORATORY | | + + + + + + | Platelet | 439 (H) | 150 - 400 K/uL | [facility] | | | Count | | | LABORATORY | | + + + + + + | MPV | 9.4Comment: NO NORMAL | fl | [facility] | | | | RANGE ESTABLISHED | | LABORATORY | | + + + + + + | Diff Type | AUTOMATED | | [facility] | | | | | | LABORATORY | | + + + + + + | % nRBC | 0.0 | 0 /100WBC | [facility] | | | | | | LABORATORY | | + + + + + + | % | 61.60 | % | [facility] | | | Neutrophils | | | LABORATORY | | + + + + + + | IMMATURE | 2.10 | % | [facility] | | | GRANULOCYTE | | | LABORATORY | | + + + + + + | % | 20.30 | % | [facility] | | | Lymphocytes | | | LABORATORY | | + + + + + + | Monocyte % | 12.00 | % | [facility] | | | | | | LABORATORY | | + + + + + + | Eosinophils | 3.40 | % | [facility] | | | % | | | LABORATORY | | + + + + + + | Basophils % | 0.60 | % | [facility] | | | | | | LABORATORY | | + + + + + + | Neutrophils | 5.69 | 1.90 - 7.40 | [facility] | | | , Absolute | | K/uL | LABORATORY | | + + + + + + | IMMATURE | 0.19 (H)Comment: NOTE | 0.00 - 0.07 | [facility] | | | GRANS AB | NEW REFERENCE RANGE | K/uL | LABORATORY | | + + + + + + | Absolute | 1.88 | 1.00 - 3.90 | [facility] | | | Lymphocytes | | K/uL | LABORATORY | | + + + + + + | Absolute | 1.11 (H) | 0.00 - 0.80 | [facility] | | | Monocytes | | K/uL | LABORATORY | | + + + + + + | Eosinophils | 0.31 | 0.00 - 0.50 | [facility] | | | , Absolute | | K/uL | LABORATORY | | + + + + + + | Basophils, | 0.06Comment: Testing | 0.00 - 0.10 | [facility] | | | Absolute | performed at [facility] [place] | K[address]L | LABORATORY | | | | [address];[place] | | | | | | [address] | | | | + + + + + + + + | Specimen | + + | Blood | + + + + + + + | Performing | Address | City/State/Zipcode | Phone Number | | Organization | | | | + + + + + | [facility] | [address] | [place] [address] | [phone] | + + + + + Basic Metabolic Panel (2020 4:42 AM PDT) + + + + + + | Component | Value | Ref Range | Performed | Pathologist | | | | | At | Signature | + + + + + + | Na | 142 | 135 - 145 | [facility] | | | | | mmol/L | LABORATORY | | + + + + + + | K | 3.7 | 3.5 - 4.9 | [facility] | | | | | mmol/L | LABORATORY | | + + + + + + | Cl | 107 | 99 - 109 mmol/L | [facility] | | | | | | LABORATORY | | + + + + + + | CO2 | 29 | 23 - 32 mmol/L | [facility] | | | | | | LABORATORY | | + + + + + + | Anion Gap | 10 | 5 - 20 mmol/L | [facility] | | | | | | LABORATORY | | + + + + + + | Glucose | 113 (H) | 65 - 99 mg/dL | [facility] | | | | | | LABORATORY | | + + + + + + | BUN | 17 | 8 - 25 mg/dL | [facility] | | | | | | LABORATORY | | + + + + + + | Creatinine | 0.81 | 0.70 - 1.30 | [facility] | | | | | mg/dL | LABORATORY | | + + + + + + | BUN/Creatin | 21 | | [facility] | | | ine Ratio | | | LABORATORY | | + + + + + + | Calcium | 8.9 | 8.5 - 10.5 | [facility] | | | | | mg/dL | LABORATORY | | + + + + + + | Estimated | >60Comment: GFR <60: | >60 | [facility] | | | GFR | CHRONIC KIDNEY DISEASE, | mL/min/1.73m2 | LABORATORY | | | | IF FOUND OVER A 3 MONTH | | | | | | PERIOD.GFR <15: KIDNEY | | | | | | FAILURE.FOR | | | | | | AMERICANS, MULTIPLY THE | | | | | | CALCULATED GFR BY | | | | | | 1.210.This eGFR is | | | | | | calculated using the | | | | | | MDRD IDMS traceable | | | | | | equation.Testing | | | | | | performed at [facility] [place] | | | | | | [address];[place], [place] | | | | | | [address] | | | | + + + + + + + + | Specimen | + + | Blood | + + + + + + + | Performing | Address | City/State/Zipcode | Phone Number | | Organization | | | | + + + + + | [facility] | [address] | [place] [address] | [phone] | + + + + + POC Glucose (02/20/2020 8:36 PM PDT) + + + + + + | Component | Value | Ref Range | Performed | Pathologist | | | | | At | Signature | + + + + + + | Glucose, | 166 (H)Comment: Testing | 65 - 99 mg/dL | [facility] | | | POC | performed at [facility] [place] | | LABORATORY | | | | [address];[place], [place] | | | | | | [address] | | | | + + + + + + + + | Specimen | + + | | + + + + + + + | Performing | Address | City/State/Zipcode | Phone Number | | Organization | | | | + + + + + | [facility] | [address] | [place] [address] | [phone] | + + + + + Coronavirus (COVID-19) NAAT (02/20/2020 5:51 PM PDT) + + + + + + | Component | Value | Ref Range | Performed | Pathologist | | | | | At | Signature | + + + + + + | Patient | NO | | [facility] | | | Symptomatic | | | LABORATORY | | + + + + + + | SARS-CoV-2, | NEGATIVEComment: This | NEG | [facility] | | | NAAT | test was developed and | | LABORATORY | | | (COVID-19) | its performance | | | | | | characteristics | | | | | | determined by[employer]. It | | | | | | has not been cleared or | | | | | | approved by the [place] FDA. | | | | | | This test has | | | | | | beenauthorized by FDA | | | | | | under an Emergency Use | | | | | | Authorization (EUA). | | | | | | Clinicians shouldbe | | | | | | advised to consider a | | | | | | patients signs, | | | | | | symptoms, history, and | | | | | | results ofother | | | | | | diagnostic tests when | | | | | | interpreting | | | | | | results.Testing | | | | | | performed at [facility] [place] | | | | | | [facility];[place], [place] | | | | | | [address] | | | | + + + + + + + + | Specimen | + + | Tissue - Entire | | nasopharynx (body | | structure) | + + + + + + + | Performing | Address | City/State/Zipcode | Phone Number | | Organization | | | | + + + + + | [facility] | [address] | [place] [address] | [phone] | + + + + + POC Glucose (02/20/2020 4:15 PM PDT) + + + + + + | Component | Value | Ref Range | Performed | Pathologist | | | | | At | Signature | + + + + + + | Glucose, | 191 (H)Comment: Testing | 65 - 99 mg/dL | [facility] | | | POC | performed at [facility] [place] | | LABORATORY | | | | [address];[place] | | | | | | [address] | | | | + + + + + + + + | Specimen | + + | | + + + + + + + | Performing | Address | City/State/Zipcode | Phone Number | | Organization | | | | + + + + + | [facility] | [address] | [place] [address] | [phone] | + + + + + POC Glucose (02/20/2020 1:54 PM PDT) + + + + + + | Component | Value | Ref Range | Performed | Pathologist | | | | | At | Signature | + + + + + + | Glucose, | 203 (H)Comment: Testing | 65 - 99 mg/dL | [facility] | | | POC | performed at [facility] [place] | | LABORATORY | | | | [address];[place] | | | | | | [address] | | | | + + + + + + + + | Specimen | + + | | + + + + + + + | Performing | Address | City/State/Zipcode | Phone Number | | Organization | | | | + + + + + | [facility] | [address] | [place] [address] | [phone] | + + + + + Potassium (02/20/2020 12:27 PM PDT) + + + + + + | Component | Value | Ref Range | Performed | Pathologist | | | | | At | Signature | + + + + + + | K | 3.7Comment: Testing | 3.5 - 4.9 | [facility] | | | | performed at [facility] [place] | mmol/L | LABORATORY | | | | [address];[place], [place] | | | | | | [address] | | | | + + + + + + + + | Specimen | + + | Blood | + + + + + + + | Performing | Address | City/State/Zipcode | Phone Number | | Organization | | | | + + + + + | [facility] | [address] | [place] [address] | [phone] | + + + + + POC Glucose (02/20/2020 6:44 AM PDT) + + + + + + | Component | Value | Ref Range | Performed | Pathologist | | | | | At | Signature | + + + + + + | Glucose, | 118 (H)Comment: Testing | 65 - 99 mg/dL | [facility] | | | POC | performed at [facility] [place] | | LABORATORY | | | | [address];[place], [place] | | | | | | [address] | | | | + + + + + + + + | Specimen | + + | | + + + + + + + | Performing | Address | City/State/Zipcode | Phone Number | | Organization | | | | + + + + + | [facility] | [address] | [place] [address] | [phone] | + + + + + XR Chest AP Portable (02/20/2020 5:43 AM PDT) + + | Specimen | + + | | + + + + + | Narrative | Performed At | + + + | CHEST PORTABLE ONE VIEW CLINICAL INFORMATION: Post open | [facility] | | heart surgery. COMPARISON: XR CHEST AP PORTABLE (02/19/2020); XR | | | CHEST AP PORTABLE (02/18/2020); XR CHEST AP PORTABLE (02/17/2020); | | | FINDINGS/IMPRESSION: 1. No lines or tubes. Median sternotomy wires | | | again noted. 2. Hazy appearance in both lung bases has progressed | | | mildly on the left and is stable on the right likely representing | | | bilateral pleural effusions and bibasilar atelectasis. Basilar | | | pneumonia can not be entirely excluded but is thought to be less | | | likely. The pulmonary vasculature and interstitium are top-normal | | | symmetric bilaterally. 3. Cardiomediastinal contours are stable. 4. | | | No pneumothorax. Final Report Signed by: Eulalio | | | Luis Alfredo Dubon Date/Time: 02/20/2020 6:33 AM | | + + + + + | Procedure Note | + + | Aidan, [id number] - 02/20/2020 6:36 AM PDT | | CHEST PORTABLE ONE VIEW | | | | CLINICAL INFORMATION: | | Post open heart surgery. | | | | COMPARISON: | | XR CHEST AP PORTABLE (02/19/2020); XR CHEST AP PORTABLE (02/18/2020); XR | | CHEST AP PORTABLE (02/17/2020); | | | | FINDINGS/IMPRESSION: | | 1. No lines or tubes. Median sternotomy wires again noted. | | 2. Hazy appearance in both lung bases has progressed mildly on the left | | and is stable on the right likely representing bilateral pleural | | effusions and bibasilar atelectasis. Basilar pneumonia can not be | | entirely excluded but is thought to be less likely. The pulmonary | | vasculature and interstitium are top-normal symmetric bilaterally. | | 3. Cardiomediastinal contours are stable. | | 4. No pneumothorax. | | | | | | | | | | | | Final Report Signed by: Jagdish Tsai, Luis Alfredo | | Sign Date/Time: 02/20/2020 6:33 AM | + + + +---------+ + + | Performing | Address | City/State/Zipcode | Phone Number | | Organization | | | | + +---------+ + + | [facility] | | | | + +---------+ + + Magnesium (02/20/2020 5:42 AM PDT) + + + + + + | Component | Value | Ref Range | Performed | Pathologist | | | | | At | Signature | + + + + + + | Magnesium | 2.0Comment: Testing | 1.7 - 2.4 mg/dL | [facility] | | | | performed at [facility] [place] | | LABORATORY | | | | [address];[place] | | | | | | [address] | | | | + + + + + + + + | Specimen | + + | Blood | + + + + + + + | Performing | Address | City/State/Zipcode | Phone Number | | Organization | | | | + + + + + | [facility] | [address] | [place] [address] | [phone] | + + + + + CBC with Differential (02/20/2020 5:42 AM PDT) + + + + + + | Component | Value | Ref Range | Performed | Pathologist | | | | | At | Signature | + + + + + + | WBC | 9.39 | 3.80 - 11.00 | [facility] | | | | | K/uL | LABORATORY | | + + + + + + | Red Blood | 3.78 (L) | 4.20 - 5.70 | [facility] | | | Cells | | M/uL | LABORATORY | | + + + + + + | Hemoglobin | 11.1 (L) | 13.2 - 17.0 | [facility] | | | | | g/dL | LABORATORY | | + + + + + + | Hematocrit | 33.7 (L) | 39.0 - 50.0 % | [facility] | | | | | | LABORATORY | | + + + + + + | MCV | 89.2 | 80.0 - 100.0 fl | [facility] | | | | | | LABORATORY | | + + + + + + | MCH | 29.4 | 27.0 - 34.0 pg | [facility] | | | | | | LABORATORY | | + + + + + + | MCHC | 32.9 | 32.0 - 35.5 | [facility] | | | | | g/dL | LABORATORY | | + + + + + + | RDW-SD | 45.1 | 37 - 53 fl | [facility] | | | | | | LABORATORY | | + + + + + + | Platelet | 395 | 150 - 400 K/uL | [facility] | | | Count | | | LABORATORY | | + + + + + + | MPV | 9.9Comment: NO NORMAL | fl | [facility] | | | | RANGE ESTABLISHED | | LABORATORY | | + + + + + + | Diff Type | AUTOMATED | | [facility] | | | | | | LABORATORY | | + + + + + + | % nRBC | 0.2 (H) | 0 /100WBC | [facility] | | | | | | LABORATORY | | + + + + + + | % | 57.50 | % | [facility] | | | Neutrophils | | | LABORATORY | | + + + + + + | % | 21.80 | % | [facility] | | | Lymphocytes | | | LABORATORY | | + + + + + + | Monocyte % | 15.70 | % | [facility] | | | | | | LABORATORY | | + + + + + + | Eosinophils | 3.00 | % | [facility] | | | % | | | LABORATORY | | + + + + + + | Basophils % | 0.50 | % | [facility] | | | | | | LABORATORY | | + + + + + + | IMMATURE | 1.50 | % | [facility] | | | GRANULOCYTE | | | LABORATORY | | + + + + + + | Neutrophils | 5.40 | 1.90 - 7.40 | [facility] | | | , Absolute | | K/uL | LABORATORY | | + + + + + + | Absolute | 2.05 | 1.00 - 3.90 | [facility] | | | Lymphocytes | | K/uL | LABORATORY | | + + + + + + | Absolute | 1.47 (H) | 0.00 - 0.80 | [facility] | | | Monocytes | | K/uL | LABORATORY | | + + + + + + | Eosinophils | 0.28 | 0.00 - 0.50 | [facility] | | | , Absolute | | K/uL | LABORATORY | | + + + + + + | Basophils, | 0.05 | 0.00 - 0.10 | [facility] | | | Absolute | | K/uL | LABORATORY | | + + + + + + | IMMATURE | 0.14 (H) | 0.00 - 0.07 | [facility] | | | GRANS AB | | K/uL | LABORATORY | | + + + + + + | RBC | RBC AND PLT MORPHOLOGY | | [facility] | | | Morphology | APPEAR NORMAL | | LABORATORY | | + + + + + + | Comment | SLIDE SCANNED, AGREES | | [facility] | | | | WITH AUTOMATED | | LABORATORY | | | | RESULTS.Comment: Testing | | | | | | performed at [facility] [place] | | | | | | [address];[place], [place] | | | | | | [address] | | | | + + + + + + + + | Specimen | + + | Blood | + + + + + + + | Performing | Address | City/State/Zipcode | Phone Number | | Organization | | | | + + + + + | [facility] | [address] | [place] [address] | [phone] | + + + + + Basic Metabolic Panel (02/20/2020 5:42 AM PDT) + + + + + + | Component | Value | Ref Range | Performed | Pathologist | | | | | At | Signature | + + + + + + | Na | 140 | 135 - 145 | [facility] | | | | | mmol/L | LABORATORY | | + + + + + + | K | 3.6 | 3.5 - 4.9 | [facility] | | | | | mmol/L | LABORATORY | | + + + + + + | Cl | 106 | 99 - 109 mmol/L | [facility] | | | | | | LABORATORY | | + + + + + + | CO2 | 27 | 23 - 32 mmol/L | [facility] | | | | | | LABORATORY | | + + + + + + | Anion Gap | 11 | 5 - 20 mmol/L | [facility] | | | | | | LABORATORY | | + + + + + + | Glucose | 109 (H) | 65 - 99 mg/dL | [facility] | | | | | | LABORATORY | | + + + + + + | BUN | 14 | 8 - 25 mg/dL | [facility] | | | | | | LABORATORY | | + + + + + + | Creatinine | 0.73 | 0.70 - 1.30 | [facility] | | | | | mg/dL | LABORATORY | | + + + + + + | BUN/Creatin | 19 | | [facility] | | | ine Ratio | | | LABORATORY | | + + + + + + | Calcium | 8.7 | 8.5 - 10.5 | [facility] | | | | | mg/dL | LABORATORY | | + + + + + + | Estimated | >60Comment: GFR <60: | >60 | [facility] | | | GFR | CHRONIC KIDNEY DISEASE, | mL/min/1.73m2 | LABORATORY | | | | IF FOUND OVER A 3 MONTH | | | | | | PERIOD.GFR <15: KIDNEY | | | | | | FAILURE.FOR | | | | | | AMERICANS, MULTIPLY THE | | | | | | CALCULATED GFR BY | | | | | | 1.210.This eGFR is | | | | | | calculated using the | | | | | | MDRD IDMS traceable | | | | | | equation.Testing | | | | | | performed at [facility] [place] | | | | | [facility];[place], [place] | | | | | | [address] | | | | + + + + + + + + | Specimen | + + | Blood | + + + + + + + | Performing | Address | City/State/Zipcode | Phone Number | | Organization | | | | + + + + + | [facility] | [address] | [place] [address] | [phone] | + + + + + POC Glucose (02/19/2020 8:52 PM PDT) + + + + + + | Component | Value | Ref Range | Performed | Pathologist | | | | | At | Signature | + + + + + + | Glucose, | 154 (H)Comment: Testing | 65 - 99 mg/dL | [facility] | | | POC | performed at [facility] [place] | | LABORATORY | | | | [address];[place] | | | | | | [address] | | | | + + + + + + + + | Specimen | + + | | + + + + + + + | Performing | Address | City/State/Zipcode | Phone Number | | Organization | | | | + + + + + | [facility] | [address] | [place] [address] | [phone] | + + + + + POC Glucose (02/19/2020 5:06 PM PDT) + + + + + + | Component | Value | Ref Range | Performed | Pathologist | | | | | At | Signature | + + + + + + | Glucose, | 136 (H)Comment: Testing | 65 - 99 mg/dL | [facility] | | | POC | performed at [facility] [place] | | LABORATORY | | | | [address];[place], [place] | | | | | | [address] | | | | + + + + + + + + | Specimen | + + | | + + + + + + + | Performing | Address | City/State/Zipcode | Phone Number | | Organization | | | | + + + + + | [facility] | [address] | [place] [address] | [phone] | + + + + + Potassium (02/19/2020 12:59 PM PDT) + + + + + + | Component | Value | Ref Range | Performed | Pathologist | | | | | At | Signature | + + + + + + | K | 3.5Comment: Testing | 3.5 - 4.9 | [facility] | | | | performed at [facility] [place] [place] | mmol/L | LABORATORY | | | | [address];[place] | | | | | | [address] | | | | + + + + + + + + | Specimen | + + | Blood | + + + + + + + | Performing | Address | City/State/Zipcode | Phone Number | | Organization | | | | + + + + + | [facility] | [address] | [place] [address] | [phone] | + + + + + POC Glucose (02/19/2020 11:55 AM PDT) + + + + + + | Component | Value | Ref Range | Performed | Pathologist | | | | | At | Signature | + + + + + + | Glucose, | 254 (H)Comment: Testing | 65 - 99 mg/dL | [facility] | | | POC | performed at [facility] [place] [place] | | LABORATORY | | | | [address];[place], [place] | | | | | | [address] | | | | + + + + + + + + | Specimen | + + | | + + + + + + + | Performing | Address | City/State/Zipcode | Phone Number | | Organization | | | | + + + + + | [facility] | [address] | [place] [address] | [phone] | + + + + + POC Glucose (02/19/2020 8:45 AM PDT) + + + + + + | Component | Value | Ref Range | Performed | Pathologist | | | | | At | Signature | + + + + + + | Glucose, | 248 (H)Comment: Testing | 65 - 99 mg/dL | [facility] | | | POC | performed at [facility] [place] [place] | | LABORATORY | | | | [address];[place], [place] | | | | | | [address] | | | | + + + + + + + + | Specimen | + + | | + + + + + + + | Performing | Address | City/State/Zipcode | Phone Number | | Organization | | | | + + + + + | [facility] | [address] | [place] [address] | [phone] | + + + + + Magnesium (02/19/2020 6:06 AM PDT) + + + + + + | Component | Value | Ref Range | Performed | Pathologist | | | | | At | Signature | + + + + + + | Magnesium | 1.9Comment: Testing | 1.7 - 2.4 mg/dL | [facility] | | | | performed at [facility] [place] [place];[address] | | LABORATORY | | | | [address];[place], [place] | | | | | | [address] | | | | + + + + + + + + | Specimen | + + | Blood | + + + + + + + | Performing | Address | City/State/Zipcode | Phone Number | | Organization | | | | + + + + + | [facility] | [address] | [place] [address] | [phone] | + + + + + CBC with Differential (02/19/2020 6:06 AM PDT) + + + + + + | Component | Value | Ref Range | Performed | Pathologist | | | | | At | Signature | + + + + + + | WBC | 9.99 | 3.80 - 11.00 | [facility] | | | | | K/uL | LABORATORY | | + + + + + + | Red Blood | 3.68 (L) | 4.20 - 5.70 | [facility] | | | Cells | | M/uL | LABORATORY | | + + + + + + | Hemoglobin | 10.6 (L) | 13.2 - 17.0 | [facility] | | | | | g/dL | LABORATORY | | + + + + + + | Hematocrit | 32.1 (L) | 39.0 - 50.0 % | [facility] | | | | | | LABORATORY | | + + + + + + | MCV | 87.2 | 80.0 - 100.0 fl | [facility] | | | | | | LABORATORY | | + + + + + + | MCH | 28.8 | 27.0 - 34.0 pg | [facility] | | | | | | LABORATORY | | + + + + + + | MCHC | 33.0 | 32.0 - 35.5 | [facility] | | | | | g/dL | LABORATORY | | + + + + + + | RDW-SD | 43.6 | 37 - 53 fl | [facility] | | | | | | LABORATORY | | + + + + + + | Platelet | 356 | 150 - 400 K/uL | [facility] | | | Count | | | LABORATORY | | + + + + + + | MPV | 10.2Comment: NO NORMAL | fl | [facility] | | | | RANGE ESTABLISHED | | LABORATORY | | + + + + + + | Diff Type | AUTOMATED | | [facility] | | | | | | LABORATORY | | + + + + + + | % nRBC | 0.0 | 0 /100WBC | [facility] | | | | | | LABORATORY | | + + + + + + | % | 68.90 | % | [facility] | | | Neutrophils | | | LABORATORY | | + + + + + + | IMMATURE | 0.80 | % | [facility] | | | GRANULOCYTE | | | LABORATORY | | + + + + + + | % | 15.50 | % | [facility] | | | Lymphocytes | | | LABORATORY | | + + + + + + | Monocyte % | 13.40 | % | [facility] | | | | | | LABORATORY | | + + + + + + | Eosinophils | 1.10 | % | [facility] | | | % | | | LABORATORY | | + + + + + + | Basophils % | 0.30 | % | [facility] | | | | | | LABORATORY | | + + + + + + | Neutrophils | 6.88 | 1.90 - 7.40 | [facility] | | | , Absolute | | K/uL | LABORATORY | | + + + + + + | IMMATURE | 0.08 (H)Comment: NOTE | 0.00 - 0.07 | [facility] | | | GRANS AB | NEW REFERENCE RANGE | K/uL | LABORATORY | | + + + + + + | Absolute | 1.55 | 1.00 - 3.90 | [facility] | | | Lymphocytes | | K/uL | LABORATORY | | + + + + + + | Absolute | 1.34 (H) | 0.00 - 0.80 | [facility] | | | Monocytes | | K/uL | LABORATORY | | + + + + + + | Eosinophils | 0.11 | 0.00 - 0.50 | [facility] | | | , Absolute | | K/uL | LABORATORY | | + + + + + + | Basophils, | 0.03Comment: Testing | 0.00 - 0.10 | [facility] | | | Absolute | performed at [facility], [address] | K/uL | LABORATORY | | | | [address], | | | | | | [place] [address] | | | | + + + + + + + + | Specimen | + + | Blood | + + + + + + + | Performing | Address | City/State/Zipcode | Phone Number | | Organization | | | | + + + + + | [facility] | [address] | [place] [address] | [phone] | + + + + + Basic Metabolic Panel (02/19/2020 6:06 AM PDT) + + + + + + | Component | Value | Ref Range | Performed | Pathologist | | | | | At | Signature | + + + + + + | Na | 139 | 135 - 145 | [facility] | | | | | mmol/L | LABORATORY | | + + + + + + | K | 3.7 | 3.5 - 4.9 | [facility] | | | | | mmol/L | LABORATORY | | + + + + + + | Cl | 107 | 99 - 109 mmol/L | [facility] | | | | | | LABORATORY | | + + + + + + | CO2 | 27 | 23 - 32 mmol/L | [facility] | | | | | | LABORATORY | | + + + + + + | Anion Gap | 9 | 5 - 20 mmol/L | [facility] | | | | | | LABORATORY | | + + + + + + | Glucose | 149 (H) | 65 - 99 mg/dL | [facility] | | | | | | LABORATORY | | + + + + + + | BUN | 11 | 8 - 25 mg/dL | [facility] | | | | | | LABORATORY | | + + + + + + | Creatinine | 0.70 | 0.70 - 1.30 | [facility] | | | | | mg/dL | LABORATORY | | + + + + + + | BUN/Creatin | 16 | | [facility] | | | ine Ratio | | | LABORATORY | | + + + + + + | Calcium | 8.8 | 8.5 - 10.5 | [facility] | | | | | mg/dL | LABORATORY | | + + + + + + | Estimated | >60Comment: GFR <60: | >60 | [facility] | | | GFR | CHRONIC KIDNEY DISEASE, | mL/min/1.73m2 | LABORATORY | | | | IF FOUND OVER A 3 MONTH | | | | | | PERIOD.GFR <15: KIDNEY | | | | | | FAILURE.FOR | | | | | | AMERICANS, MULTIPLY THE | | | | | | CALCULATED GFR BY | | | | | | 1.210.This eGFR is | | | | | | calculated using the | | | | | | MDRD IDVT traceable | | | | | | equation.Testing | | | | | | performed at [facility], [address] | | | | | [facility], | | | | | | [place] [address] | | | | + + + + + + + + | Specimen | + + | Blood | + + + + + + + | Performing | Address | City/State/Zipcode | Phone Number | | Organization | | | | + + + + + | [facility] | [address] | [place] [address] | [phone] | + + + + + XR Chest AP Portable (02/19/2020 5:57 AM PDT) + + | Specimen | + + | | + + + + + | Narrative | Performed At | + + + | CHEST PORTABLE ONE VIEW CLINICAL INFORMATION: Post open | [facility] | | heart surgery. COMPARISON: XR CHEST AP PORTABLE (02/18/2020); XR | | | CHEST AP PORTABLE (02/17/2020); XR CHEST AP PORTABLE (02/16/2020); | | | FINDINGS/IMPRESSION: 1. No lines or support devices. 2. Low lung | | | volume with stable bibasilar airspace opacities likely combination of | | | pleural effusions and atelectasis 3. Cardiomediastinal contours are | | | stable. Intact sternotomy wires. 4. No pneumothorax. Subtle | | | vertical linear lucency overlying the right hemithorax is likely | | | artifactual. Final Report Signed by: Juan M Thorpe, | | | Henri Sign Date/Time: 02/19/2020 6:19 AM | | + + + + + | Procedure Note | + + | Aidan, [id number] - 02/19/2020 6:23 AM PDT | | CHEST PORTABLE ONE VIEW | | | | CLINICAL INFORMATION: | | Post open heart surgery. | | | | COMPARISON: | | XR CHEST AP PORTABLE (02/18/2020); XR CHEST AP PORTABLE (02/17/2020); XR | | CHEST AP PORTABLE (02/16/2020); | | | | FINDINGS/IMPRESSION: | | 1. No lines or support devices. | | 2. Low lung volume with stable bibasilar airspace opacities likely | | combination of pleural effusions and atelectasis | | 3. Cardiomediastinal contours are stable. Intact sternotomy wires. | | 4. No pneumothorax. Subtle vertical linear lucency overlying the right | | hemithorax is likely artifactual. | | | | | | | | | | | | Final Report Signed by: Juan M Thorpe Tyson | | Sign Date/Time: 02/19/2020 6:19 AM | + + + +---------+ + + | Performing | Address | City/State/Zipcode | Phone Number | | Organization | | | | + +---------+ + + | [facility] | | | | + +---------+ + + POC Glucose (02/18/2020 9:13 PM PDT) + + + + + + | Component | Value | Ref Range | Performed | Pathologist | | | | | At | Signature | + + + + + + | Glucose, | 191 (H)Comment: Testing | 65 - 99 mg/dL | [facility] | | | POC | performed at [facility] [place] | | LABORATORY | | | | [address];[place], [place] | | | | | | [address] | | | | + + + + + + + + | Specimen | + + | | + + + + + + + | Performing | Address | City/State/Zipcode | Phone Number | | Organization | | | | + + + + + | [facility] | [address] | [place] [address] | [phone] | + + + + + POC Glucose (02/18/2020 5:07 PM PDT) + + + + + + | Component | Value | Ref Range | Performed | Pathologist | | | | | At | Signature | + + + + + + | Glucose, | 145 (H)Comment: Testing | 65 - 99 mg/dL | [facility] | | | POC | performed at [facility];[address] | | LABORATORY | | | | [facility];[place], [place] | | | | | | [address] | | | | + + + + + + + + | Specimen | + + | | + + + + + + + | Performing | Address | City/State/Zipcode | Phone Number | | Organization | | | | + + + + + | [facility] | [address] | [place] [address] | [phone] | + + + + + POC Glucose (02/18/2020 11:38 AM PDT) + + + + + + | Component | Value | Ref Range | Performed | Pathologist | | | | | At | Signature | + + + + + + | Glucose, | 146 (H)Comment: Testing | 65 - 99 mg/dL | [facility] | | | POC | performed at [facility];[address] | | LABORATORY | | | | [address];[place] | | | | | | [address] | | | | + + + + + + + + | Specimen | + + | | + + + + + + + | Performing | Address | City/State/Zipcode | Phone Number | | Organization | | | | + + + + + | [facility] | [address] | [place] [address] | [phone] | + + + + + POC Glucose (02/18/2020 7:10 AM PDT) + + + + + + | Component | Value | Ref Range | Performed | Pathologist | | | | | At | Signature | + + + + + + | Glucose, | 133 (H)Comment: Testing | 65 - 99 mg/dL | [facility] | | | POC | performed at [facility] | | LABORATORY | | | | [address];[place] | | | | | | [address] | | | | + + + + + + + + | Specimen | + + | | + + + + + + + | Performing | Address | City/State/Zipcode | Phone Number | | Organization | | | | + + + + + | [facility] | [address] | [place] [address] | [phone] | + + + + + XR Chest AP Portable (02/18/2020 6:26 AM PDT) + + | Specimen | + + | | + + + + + | Narrative | Performed At | + + + | CHEST PORTABLE ONE VIEW CLINICAL INFORMATION: Post open | [facility] | | heart surgery. COMPARISON: XR CHEST AP PORTABLE (02/17/2020); XR | | | CHEST AP PORTABLE (02/16/2020); XR CHEST AP PORTABLE (02/15/2020); | | | FINDINGS/IMPRESSION: 1. Right IJ CV line removed. Mediastinal drain | | | and left chest tube removed. 2. Right basilar hazy opacity | | | representing some combination of pleural effusion, edema, atelectasis | | | or consolidation unchanged. No new pulmonary opacities. Stable | | | lung volumes. 3. Cardiomediastinal contours are stable. 4. No | | | pneumothorax. Final Report Signed by: Jagdish Nj Richard | | | Sign Date/Time: 02/18/2020 6:44 AM | | + + + + + | Procedure Note | + + | Aidan, [id number] - 02/18/2020 6:47 AM PDT | | CHEST PORTABLE ONE VIEW | | | | CLINICAL INFORMATION: | | Post open heart surgery. | | | | COMPARISON: | | XR CHEST AP PORTABLE (02/17/2020); XR CHEST AP PORTABLE (02/16/2020); XR | | CHEST AP PORTABLE (02/15/2020); | | | | FINDINGS/IMPRESSION: | | 1. Right IJ CV line removed. Mediastinal drain and left chest tube | | removed. | | 2. Right basilar hazy opacity representing some combination of pleural | | effusion, edema, atelectasis or consolidation unchanged. No new | | pulmonary opacities. Stable lung volumes. | | 3. Cardiomediastinal contours are stable. | | 4. No pneumothorax. | | | | | | | | Final Report Signed by: Jagdish Nj Richard | | Sign Date/Time: 02/18/2020 6:44 AM | + + + +---------+ + + | Performing | Address | City/State/Zipcode | Phone Number | | Organization | | | | + +---------+ + + | [facility] | | | | + +---------+ + + CBC with Differential (02/18/2020 4:28 AM PDT) + + + + + + | Component | Value | Ref Range | Performed | Pathologist | | | | | At | Signature | + + + + + + | WBC | 11.34 (H) | 3.80 - 11.00 | [facility] | | | | | K/uL | LABORATORY | | + + + + + + | Red Blood | 3.35 (L) | 4.20 - 5.70 | [facility] | | | Cells | | M/uL | LABORATORY | | + + + + + + | Hemoglobin | 9.9 (L) | 13.2 - 17.0 | [facility] | | | | | g/dL | LABORATORY | | + + + + + + | Hematocrit | 30.3 (L) | 39.0 - 50.0 % | [facility] | | | | | | LABORATORY | | + + + + + + | MCV | 90.4 | 80.0 - 100.0 fl | [facility] | | | | | | LABORATORY | | + + + + + + | MCH | 29.6 | 27.0 - 34.0 pg | [facility] | | | | | | LABORATORY | | + + + + + + | MCHC | 32.7 | 32.0 - 35.5 | [facility] | | | | | g/dL | LABORATORY | | + + + + + + | RDW-SD | 45.9 | 37 - 53 fl | [facility] | | | | | | LABORATORY | | + + + + + + | Platelet | 288 | 150 - 400 K/uL | [facility] | | | Count | | | LABORATORY | | + + + + + + | MPV | 10.1Comment: NO NORMAL | fl | [facility] | | | | RANGE ESTABLISHED | | LABORATORY | | + + + + + + | Diff Type | AUTOMATED | | [facility] | | | | | | LABORATORY | | + + + + + + | % nRBC | 0.0 | 0 /100WBC | [facility] | | | | | | LABORATORY | | + + + + + + | % | 75.50 | % | [facility] | | | Neutrophils | | | LABORATORY | | + + + + + + | IMMATURE | 0.60 | % | [facility] | | | GRANULOCYTE | | | LABORATORY | | + + + + + + | % | 11.60 | % | [facility] | | | Lymphocytes | | | LABORATORY | | + + + + + + | Monocyte % | 10.80 | % | [facility] | | | | | | LABORATORY | | + + + + + + | Eosinophils | 1.20 | % | [facility] | | | % | | | LABORATORY | | + + + + + + | Basophils % | 0.30 | % | [facility] | | | | | | LABORATORY | | + + + + + + | Neutrophils | 8.55 (H) | 1.90 - 7.40 | [facility] | | | , Absolute | | K/uL | LABORATORY | | + + + + + + | IMMATURE | 0.07Comment: NOTE NEW | 0.00 - 0.07 | [facility] | | | GRANS AB | REFERENCE RANGE | K/uL | LABORATORY | | + + + + + + | Absolute | 1.32 | 1.00 - 3.90 | [facility] | | | Lymphocytes | | K/uL | LABORATORY | | + + + + + + | Absolute | 1.23 (H) | 0.00 - 0.80 | [facility] | | | Monocytes | | K/uL | LABORATORY | | + + + + + + | Eosinophils | 0.14 | 0.00 - 0.50 | [facility] | | | , Absolute | | K/uL | LABORATORY | | + + + + + + | Basophils, | 0.03Comment: Testing | 0.00 - 0.10 | [facility] | | | Absolute | performed at [facility];[address] | K/uL | LABORATORY | | | | [address];[place] | | | | | | [address] | | | | + + + + + + + + | Specimen | + + | | + + + + + + + | Performing | Address | City/State/Zipcode | Phone Number | | Organization | | | | + + + + + | [facility] | [address] | [place] [address] | [phone] | + + + + + Basic Metabolic Panel (02/18/2020 4:28 AM PDT) + + + + + + | Component | Value | Ref Range | Performed | Pathologist | | | | | At | Signature | + + + + + + | Na | 139 | 135 - 145 | [facility] | | | | | mmol/L | LABORATORY | | + + + + + + | K | 4.6 | 3.5 - 4.9 | [facility] | | | | | mmol/L | LABORATORY | | + + + + + + | Cl | 107 | 99 - 109 mmol/L | [facility] | | | | | | LABORATORY | | + + + + + + | CO2 | 29 | 23 - 32 mmol/L | [facility] | | | | | | LABORATORY | | + + + + + + | Anion Gap | 8 | 5 - 20 mmol/L | [facility] | | | | | | LABORATORY | | + + + + + + | Glucose | 149 (H) | 65 - 99 mg/dL | [facility] | | | | | | LABORATORY | | + + + + + + | BUN | 11 | 8 - 25 mg/dL | [facility] | | | | | | LABORATORY | | + + + + + + | Creatinine | 0.70 | 0.70 - 1.30 | [facility] | | | | | mg/dL | LABORATORY | | + + + + + + | BUN/Creatin | 16 | | [facility] | | | ine Ratio | | | LABORATORY | | + + + + + + | Calcium | 8.6 | 8.5 - 10.5 | [facility] | | | | | mg/dL | LABORATORY | | + + + + + + | Estimated | >60Comment: GFR <60: | >60 | [facility] | | | GFR | CHRONIC KIDNEY DISEASE, | mL/min/1.73m2 | LABORATORY | | | | IF FOUND OVER A 3 MONTH | | | | | | PERIOD.GFR <15: KIDNEY | | | | | | FAILURE.FOR | | | | | | AMERICANS, MULTIPLY THE | | | | | | CALCULATED GFR BY | | | | | | 1.210.This eGFR is | | | | | | calculated using the | | | | | | MDRD IDMS traceable | | | | | | equation.Testing | | | | | | performed at [facility] | | | | | | [address];[place], [place] | | | | | | [address] | | | | + + + + + + + + | Specimen | + + | | + + + + + + + | Performing | Address | City/State/Zipcode | Phone Number | | Organization | | | | + + + + + | [facility] | [address] | [place] [address] | [phone] | + + + + + Magnesium (02/18/2020 4:28 AM PDT) + + + + + + | Component | Value | Ref Range | Performed | Pathologist | | | | | At | Signature | + + + + + + | Magnesium | 1.9Comment: Testing | 1.7 - 2.4 mg/dL | [place] | | | | performed at [facility] [place] [place] | [place] | | | | [address];[place], [place] | | | | | | [address] | | | | + + + + + + + + | Specimen | + + | Blood | + + + + + + + | Performing | Address | City/State/Zipcode | Phone Number | | Organization | | | | + + + + + | [facility] | [address] | [place] [address] | [phone] | + + + + + POC Glucose (02/17/2020 9:25 PM PDT) + + + + + + | Component | Value | Ref Range | Performed | Pathologist | | | | | At | Signature | + + + + + + | Glucose, | 221 (H)Comment: Testing | 65 - 99 mg/dL | [facility] | | | POC | performed at [facility] [place] | LABORATORY | [address];[place] | | | | | | [address] | | | | + + + + + + + + | Specimen | + + | | + + + + + + + | Performing | Address | City/State/Zipcode | Phone Number | | Organization | | | | + + + + + | [facility] | [address] | [place] [address] | [phone] | + + + + + POC Glucose (02/17/2020 5:18 PM PDT) + + + + + + | Component | Value | Ref Range | Performed | Pathologist | | | | | At | Signature | + + + + + + | Glucose, | 116 (H)Comment: Testing | 65 - 99 mg/dL | [facility] | | | POC | performed at [facility] [place] | | LABORATORY | | | | [address];[place], [place] | | | | | | [address] | | | | + + + + + + + + | Specimen | + + | | + + + + + + + | Performing | Address | City/State/Zipcode | Phone Number | | Organization | | | | + + + + + | [facility] | [address] | [place] [address] | [phone] | + + + + + POC Glucose (02/17/2020 3:41 PM PDT) + + + + + + | Component | Value | Ref Range | Performed | Pathologist | | | | | At | Signature | + + + + + + | Glucose, | 168 (H)Comment: Testing | 65 - 99 mg/dL | [facility] | | | POC | performed at [facility] [place] | | LABORATORY | | | | [address];[place], [place] | | | | | | [address] | | | | + + + + + + + + | Specimen | + + | | + + + + + + + | Performing | Address | City/State/Zipcode | Phone Number | | Organization | | | | + + + + + | [facility] | [address] | [place] [address] | [phone] | + + + + + POC Glucose (02/17/2020 1:09 PM PDT) + + + + + + | Component | Value | Ref Range | Performed | Pathologist | | | | | At | Signature | + + + + + + | Glucose, | 163 (H)Comment: Testing | 65 - 99 mg/dL | [facility] | | | POC | performed at [facility] [place] | | LABORATORY | | | | [address];[place] | | | | | | [address] | | | | + + + + + + + + | Specimen | + + | | + + + + + + + | Performing | Address | City/State/Zipcode | Phone Number | | Organization | | | | + + + + + | [facility] | [address] [facility] [address] [facility] | [place] [address] | [phone] | + + + + + POC Glucose (02/17/2020 11:49 AM PDT) + + + + + + | Component | Value | Ref Range | Performed | Pathologist | | | | | At | Signature | + + + + + + | Glucose, | 136 (H)Comment: Testing | 65 - 99 mg/dL | [facility] | | | POC | performed at [facility] [place] | | LABORATORY | | | | [address];[place] | | | | | | [address] | | | | + + + + + + + + | Specimen | + + | | + + + + + + + | Performing | Address | City/State/Zipcode | Phone Number | | Organization | | | | + + + + + | [facility] | [address] | [place] [address] | [phone] | + + + + + POC Glucose (02/17/2020 10:43 AM PDT) + + + + + + | Component | Value | Ref Range | Performed | Pathologist | | | | | At | Signature | + + + + + + | Glucose, | 167 (H)Comment: Testing | 65 - 99 mg/dL | [facility] | | | POC | performed at [facility] [place] | | LABORATORY | | | | [address];[place] | | | | | | [address] | | | | + + + + + + + + | Specimen | + + | | + + + + + + + | Performing | Address | City/State/Zipcode | Phone Number | | Organization | | | | + + + + + | [facility] | [address] | [place] [address] | [phone] | + + + + + POC Glucose (02/17/2020 7:24 AM PDT) + + + + + + | Component | Value | Ref Range | Performed | Pathologist | | | | | At | Signature | + + + + + + | Glucose, | 109 (H)Comment: Testing | 65 - 99 mg/dL | [facility] | | | POC | performed at [facility] [place] | | LABORATORY | | | | [address];[place], [place] | | | | | | [address] | | | | + + + + + + + + | Specimen | + + | | + + + + + + + | Performing | Address | City/State/Zipcode | Phone Number | | Organization | | | | + + + + + | [facility] | [address] | [place] [address] | [phone] | + + + + + XR Chest AP Portable (02/17/2020 5:45 AM PDT) + + | Specimen | + + | | + + + + + | Narrative | Performed At | + + + | CHEST PORTABLE ONE VIEW CLINICAL INFORMATION: Post open | [facility] | | heart surgery. COMPARISON: XR CHEST AP PORTABLE (02/16/2020); XR | | | CHEST AP PORTABLE (02/15/2020); XR CHEST AP PORTABLE (02/14/2020); | | | FINDINGS/IMPRESSION: 1. Stable right IJ sheath and mediastinal | | | drainage catheter. Stable midline sternotomy. 2. Lung volumes | | | remain low with persistent ground-glass right basilar opacity | | | suggesting a combination of small effusion and underlying | | | atelectasis/consolidation. No significant interval change. 3. | | | Cardiomediastinal contours are stable. 4. No pneumothorax. | | | Final Report Signed by: Jagdish Rojas, Ofelia Sign Date/Time: 02/17/2020 | | | 6:38 AM | | + + + + + | Procedure Note | + + | Aidan, [id number] - 02/17/2020 6:41 AM PDT | | CHEST PORTABLE ONE VIEW | | | | CLINICAL INFORMATION: | | Post open heart surgery. | | | | COMPARISON: | | XR CHEST AP PORTABLE (02/16/2020); XR CHEST AP PORTABLE (02/15/2020); XR | | CHEST AP PORTABLE (02/14/2020); | | | | FINDINGS/IMPRESSION: | | 1. Stable right IJ sheath and mediastinal drainage catheter. Stable | | midline sternotomy. | | 2. Lung volumes remain low with persistent ground-glass right basilar | | opacity suggesting a combination of small effusion and underlying | | atelectasis/consolidation. No significant interval change. | | 3. Cardiomediastinal contours are stable. | | 4. No pneumothorax. | | | | | | | | Final Report Signed by: Jagdish Rojas Sadaf | | Sign Date/Time: 02/17/2020 6:38 AM | + + + +---------+ + + | Performing | Address | City/State/Zipcode | Phone Number | | Organization | | | | + +---------+ + + | [facility] | | | | + +---------+ + + POC Glucose (02/17/2020 5:17 AM PDT) + + + + + + | Component | Value | Ref Range | Performed | Pathologist | | | | | At | Signature | + + + + + + | Glucose, | 107 (H)Comment: Testing | 65 - 99 mg/dL | [facility] | | | POC | performed at [facility] [place] | | LABORATORY | | | | [address];[place], [place] | | | | | | [address] | | | | + + + + + + + + | Specimen | + + | | + + + + + + + | Performing | Address | City/State/Zipcode | Phone Number | | Organization | | | | + + + + + | [facility] | [address] | [place] [address] | [phone] | + + + + + Magnesium (02/17/2020 3:10 AM PDT) + + + + + + | Component | Value | Ref Range | Performed | Pathologist | | | | | At | Signature | + + + + + + | Magnesium | 2.1Comment: Testing | 1.7 - 2.4 mg/dL | [facility] | | | | performed at [facility] [place] | | LABORATORY | | | | [address];[place] | | | | | | [address] | | | | + + + + + + + + | Specimen | + + | Blood | + + + + + + + | Performing | Address | City/State/Zipcode | Phone Number | | Organization | | | | + + + + + | [facility] | [address] | [place] [address] | [phone] | + + + + + CBC with Differential (02/17/2020 3:10 AM PDT) + + + + + + | Component | Value | Ref Range | Performed | Pathologist | | | | | At | Signature | + + + + + + | WBC | 10.49 | 3.80 - 11.00 | [facility] | | | | | K/uL | LABORATORY | | + + + + + + | Red Blood | 2.94 (L) | 4.20 - 5.70 | [facility] | | | Cells | | M/uL | LABORATORY | | + + + + + + | Hemoglobin | 8.8 (L) | 13.2 - 17.0 | [facility] | | | | | g/dL | LABORATORY | | + + + + + + | Hematocrit | 26.5 (L) | 39.0 - 50.0 % | [facility] | | | | | | LABORATORY | | + + + + + + | MCV | 90.1 | 80.0 - 100.0 fl | [facility] | | | | | | LABORATORY | | + + + + + + | MCH | 29.9 | 27.0 - 34.0 pg | [facility] | | | | | | LABORATORY | | + + + + + + | MCHC | 33.2 | 32.0 - 35.5 | [facility] | | | | | g/dL | LABORATORY | | + + + + + + | RDW-SD | 46.1 | 37 - 53 fl | [facility] | | | | | | LABORATORY | | + + + + + + | Platelet | 185 | 150 - 400 K/uL | [facility] | | | Count | | | LABORATORY | | + + + + + + | MPV | 10.5Comment: NO NORMAL | fl | [facility] | | | | RANGE ESTABLISHED | | LABORATORY | | + + + + + + | Diff Type | AUTOMATED | | [facility] | | | | | | LABORATORY | | + + + + + + | % nRBC | 0.0 | 0 /100WBC | [facility] | | | | | | LABORATORY | | + + + + + + | % | 73.00 | % | [facility] | | | Neutrophils | | | LABORATORY | | + + + + + + | IMMATURE | 0.30 | % | [facility] | | | GRANULOCYTE | | | LABORATORY | | + + + + + + | % | 14.60 | % | [facility] | | | Lymphocytes | | | LABORATORY | | + + + + + + | Monocyte % | 10.80 | % | [facility] | | | | | | LABORATORY | | + + + + + + | Eosinophils | 1.00 | % | [facility] | | | % | | | LABORATORY | | + + + + + + | Basophils % | 0.30 | % | [facility] | | | | | | LABORATORY | | + + + + + + | Neutrophils | 7.66 (H) | 1.90 - 7.40 | [facility] | | | , Absolute | | K/uL | LABORATORY | | + + + + + + | IMMATURE | 0.03Comment: NOTE NEW | 0.00 - 0.07 | [facility] | | | GRANS AB | REFERENCE RANGE | K/uL | LABORATORY | | + + + + + + | Absolute | 1.53 | 1.00 - 3.90 | [facility] | | | Lymphocytes | | K/uL | LABORATORY | | + + + + + + | Absolute | 1.13 (H) | 0.00 - 0.80 | [facility] | | | Monocytes | | K/uL | LABORATORY | | + + + + + + | Eosinophils | 0.11 | 0.00 - 0.50 | [facility] | | | , Absolute | | K/uL | LABORATORY | | + + + + + + | Basophils, | 0.03Comment: Testing | 0.00 - 0.10 | [facility] | | | Absolute | performed at [facility] [place] | K/uL | LABORATORY | | | | [address];[place], [place] | | | | | | [address] | | | | + + + + + + + + | Specimen | + + | Blood | + + + + + + + | Performing | Address | City/State/Zipcode | Phone Number | | Organization | | | | + + + + + | [facility] | [address] | [place] [address] | [phone] | + + + + + Basic Metabolic Panel (02/17/2020 3:10 AM PDT) + + + + + + | Component | Value | Ref Range | Performed | Pathologist | | | | | At | Signature | + + + + + + | Na | 136 | 135 - 145 | [facility] | | | | | mmol/L | LABORATORY | | + + + + + + | K | 3.9 | 3.5 - 4.9 | [facility] | | | | | mmol/L | LABORATORY | | + + + + + + | Cl | 108 | 99 - 109 mmol/L | [facility] | | | | | | LABORATORY | | + + + + + + | CO2 | 25 | 23 - 32 mmol/L | [facility] | | | | | | LABORATORY | | + + + + + + | Anion Gap | 7 | 5 - 20 mmol/L | [facility] | | | | | | LABORATORY | | + + + + + + | Glucose | 101 (H) | 65 - 99 mg/dL | [facility] | | | | | | LABORATORY | | + + + + + + | BUN | 10 | 8 - 25 mg/dL | [facility] | | | | | | LABORATORY | | + + + + + + | Creatinine | 0.63 (L) | 0.70 - 1.30 | [facility] | | | | | mg/dL | LABORATORY | | + + + + + + | BUN/Creatin | 16 | | [facility] | | | ine Ratio | | | LABORATORY | | + + + + + + | Calcium | 8.0 (L) | 8.5 - 10.5 | [facility] | | | | | mg/dL | LABORATORY | | + + + + + + | Estimated | >60Comment: GFR <60: | >60 | [facility] | | | GFR | CHRONIC KIDNEY DISEASE, | mL/min/1.73m2 | LABORATORY | | | | IF FOUND OVER A 3 MONTH | | | | | | PERIOD.GFR <15: KIDNEY | | | | | | FAILURE.FOR | | | | | | AMERICANS, MULTIPLY THE | | | | | | CALCULATED GFR BY | | | | | | 1.210.This eGFR is | | | | | | calculated using the | | | | | | MDRD IDMS traceable | | | | | | equation.Testing | | | | | | performed at [facility] [place] [place] | | | | | | [facility];[place], [place] | | | | | | [address] | | | | + + + + + + + + | Specimen | + + | Blood | + + + + + + + | Performing | Address | City/State/Zipcode | Phone Number | | Organization | | | | + + + + + | [facility] | [address] | [place] [address] | [phone] | + + + + + POC Glucose (02/17/2020 3:08 AM PDT) + + + + + + | Component | Value | Ref Range | Performed | Pathologist | | | | | At | Signature | + + + + + + | Glucose, | 109 (H)Comment: Testing | 65 - 99 mg/dL | [facility] | | | POC | performed at [facility] [place] | | LABORATORY | | | | [address];[place] | | | | | | [address] | | | | + + + + + + + + | Specimen | + + | | + + + + + + + | Performing | Address | City/State/Zipcode | Phone Number | | Organization | | | | + + + + + | [facility] | [address] | [place] [address] | [phone] | + + + + + POC Glucose (02/17/2020 12:55 AM PDT) + + + + + + | Component | Value | Ref Range | Performed | Pathologist | | | | | At | Signature | + + + + + + | Glucose, | 108 (H)Comment: Testing | 65 - 99 mg/dL | [facility] | | | POC | performed at [facility] [place] | | LABORATORY | | | | [address];[place] | | | | | | [address] | | | | + + + + + + + + | Specimen | + + | | + + + + + + + | Performing | Address | City/State/Zipcode | Phone Number | | Organization | | | | + + + + + | [facility] | [address] | [place] [address] | [phone] | + + + + + POC Glucose (02/16/2020 10:51 PM PDT) + + + + + + | Component | Value | Ref Range | Performed | Pathologist | | | | | At | Signature | + + + + + + | Glucose, | 110 (H)Comment: Testing | 65 - 99 mg/dL | [facility] | | | POC | performed at [facility] [place] | | LABORATORY | | | | [address];[place] | | | | | | [address] | | | | + + + + + + + + | Specimen | + + | | + + + + + + + | Performing | Address | City/State/Zipcode | Phone Number | | Organization | | | | + + + + + | [facility] | [address] | [place] [address] | [phone] | + + + + + Potassium (02/16/2020 8:48 PM PDT) + + + + + + | Component | Value | Ref Range | Performed | Pathologist | | | | | At | Signature | + + + + + + | K | 4.0Comment: Testing | 3.5 - 4.9 | [facility] | | | | performed at [facility] [place] | mmol/L | LABORATORY | | | | [address];[place] | | | | | | [address] | | | | + + + + + + + + | Specimen | + + | Blood | + + + + + + + | Performing | Address | City/State/Zipcode | Phone Number | | Organization | | | | + + + + + | [facility] | [address] | [place] [address] | [phone] | + + + + + POC Glucose (02/16/2020 8:47 PM PDT) + + + + + + | Component | Value | Ref Range | Performed | Pathologist | | | | | At | Signature | + + + + + + | Glucose, | 117 (H)Comment: Testing | 65 - 99 mg/dL | [facility] | | | POC | performed at [facility] [place] | | LABORATORY | | | | [address];[place], [place] | | | | | | [address] | | | | + + + + + + + + | Specimen | + + | | + + + + + + + | Performing | Address | City/State/Zipcode | Phone Number | | Organization | | | | + + + + + | [facility] | [address] | [place] [address] | [phone] | + + + + + POC Glucose (02/16/2020 7:36 PM PDT) + + + + + + | Component | Value | Ref Range | Performed | Pathologist | | | | | At | Signature | + + + + + + | Glucose, | 135 (H)Comment: Testing | 65 - 99 mg/dL | [facility] | | | POC | performed at [facility] [place];[address] | | LABORATORY | | | | [address];[place] | | | | | | [address] | | | | + + + + + + + + | Specimen | + + | | + + + + + + + | Performing | Address | City/State/Zipcode | Phone Number | | Organization | | | | + + + + + | [facility] | [address] | [place] [address] | [phone] | + + + + + POC Glucose (02/16/2020 5:26 PM PDT) + + + + + + | Component | Value | Ref Range | Performed | Pathologist | | | | | At | Signature | + + + + + + | Glucose, | 103 (H)Comment: Testing | 65 - 99 mg/dL | [facility] | | | POC | performed at [facility] [place] | | LABORATORY | | | | [address];[place] | | | | | | [address] | | | | + + + + + + + + | Specimen | + + | | + + + + + + + | Performing | Address | City/State/Zipcode | Phone Number | | Organization | | | | + + + + + | [facility] | [address] | [place] [address] | [phone] | + + + + + POC Glucose (02/16/2020 3:16 PM PDT) + + + + + + | Component | Value | Ref Range | Performed | Pathologist | | | | | At | Signature | + + + + + + | Glucose, | 124 (H)Comment: Testing | 65 - 99 mg/dL | [facility] | | | POC | performed at [facility] [place];[address] | | LABORATORY | | | | [facility];[place], [place] | | | | | | [address] | | | | + + + + + + + + | Specimen | + + | | + + + + + + + | Performing | Address | City/State/Zipcode | Phone Number | | Organization | | | | + + + + + | [facility] | [address] | [place] [address] | [phone] | + + + + + POC Glucose (02/16/2020 1:08 PM PDT) + + + + + + | Component | Value | Ref Range | Performed | Pathologist | | | | | At | Signature | + + + + + + | Glucose, | 132 (H)Comment: Testing | 65 - 99 mg/dL | [facility] | | | POC | performed at [facility] [place];[address] | | LABORATORY | | | | [address];[place] | | | | | | [address] | | | | + + + + + + + + | Specimen | + + | | + + + + + + + | Performing | Address | City/State/Zipcode | Phone Number | | Organization | | | | + + + + + | [facility] | [address] | [place] [address] | [phone] | + + + + + POC Glucose (02/16/2020 11:01 AM PDT) + + + + + + | Component | Value | Ref Range | Performed | Pathologist | | | | | At | Signature | + + + + + + | Glucose, | 101 (H)Comment: Testing | 65 - 99 mg/dL | [facility] | | | POC | performed at [facility] [place] | | LABORATORY | | | | [address];[place] | | | | | | [address] | | | | + + + + + + + + | Specimen | + + | | + + + + + + + | Performing | Address | City/State/Zipcode | Phone Number | | Organization | | | | + + + + + | [facility] | [address] | [place] [address] | [phone] | + + + + + Potassium (02/16/2020 9:50 AM PDT) + + + + + + | Component | Value | Ref Range | Performed | Pathologist | | | | | At | Signature | + + + + + + | K | 3.9Comment: Testing | 3.5 - 4.9 | [facility] | | | | performed at [facility] [place];[address] | mmol/L | LABORATORY | | | | [address];[place], [place] | | | | | | [address] | | | | + + + + + + + + | Specimen | + + | Blood | + + + + + + + | Performing | Address | City/State/Zipcode | Phone Number | | Organization | | | | + + + + + | [facility] | [address] | [place] [address] | [phone] | + + + + + POC Glucose (02/16/2020 8:57 AM PDT) + + + + + + | Component | Value | Ref Range | Performed | Pathologist | | | | | At | Signature | + + + + + + | Glucose, | 121 (H)Comment: Testing | 65 - 99 mg/dL | [facility] | | | POC | performed at [facility] [place];[address] | | LABORATORY | | | | [address];[place] | | | | | | [address] | | | | + + + + + + + + | Specimen | + + | | + + + + + + + | Performing | Address | City/State/Zipcode | Phone Number | | Organization | | | | + + + + + | [facility] | [address] | [place] [address] | [phone] | + + + + + POC Glucose (02/16/2020 6:54 AM PDT) + + + + + + | Component | Value | Ref Range | Performed | Pathologist | | | | | At | Signature | + + + + + + | Glucose, | 138 (H)Comment: Testing | 65 - 99 mg/dL | [facility] | | | POC | performed at [facility] [place];[address] | | LABORATORY | | | | [address];[place], [place] | | | | | | [address] | | | | + + + + + + + + | Specimen | + + | | + + + + + + + | Performing | Address | City/State/Zipcode | Phone Number | | Organization | | | | + + + + + | [facility] | [address] | [place] [address] | [phone] | + + + + + XR Chest AP Portable (02/16/2020 5:35 AM PDT) + + | Specimen | + + | | + + + + + | Narrative | Performed At | + + + | CHEST PORTABLE ONE VIEW CLINICAL INFORMATION: Post open | [facility] | | heart surgery. COMPARISON: XR CHEST AP PORTABLE (02/15/2020); XR | | | CHEST AP PORTABLE (02/14/2020); XR CHEST 2 VIEWS (02/06/2020); | | | FINDINGS/IMPRESSION: 1. Lines and support devices are unchanged in | | | position. 2. New right basilar ground-glass opacity which most likely | | | reflects layering effusion versus edema. Mild left basilar | | | atelectasis. 3. Cardiomediastinal contours are stable. 4. No | | | pneumothorax. Final Report Signed by: Jagdish Edgar, | | | Sage Sign Date/Time: 02/16/2020 6:25 AM | | + + + + + | Procedure Note | + + | Aidan, [id number] - 02/16/2020 6:29 AM PDT | | CHEST PORTABLE ONE VIEW | | | | CLINICAL INFORMATION: | | Post open heart surgery. | | | | COMPARISON: | | XR CHEST AP PORTABLE (02/15/2020); XR CHEST AP PORTABLE (02/14/2020); XR | | CHEST 2 VIEWS (02/06/2020); | | | | FINDINGS/IMPRESSION: | | 1. Lines and support devices are unchanged in position. | | 2. New right basilar ground-glass opacity which most likely reflects | | layering effusion versus edema. Mild left basilar atelectasis. | | 3. Cardiomediastinal contours are stable. | | 4. No pneumothorax. | | | | | | | | | | | | Final Report Signed by: Jagdish Edgar, Sage | | Sign Date/Time: 02/16/2020 6:25 AM | + + + +---------+ + + | Performing | Address | City/State/Zipcode | Phone Number | | Organization | | | | + +---------+ + + | [facility] | | | | + +---------+ + + POC Glucose (02/16/2020 5:14 AM PDT) + + + + + + | Component | Value | Ref Range | Performed | Pathologist | | | | | At | Signature | + + + + + + | Glucose, | 119 (H)Comment: Testing | 65 - 99 mg/dL | [facility] | | | POC | performed at [facility] | | LABORATORY | | | | [address];[place], [place] | | | | | | [address] | | | | + + + + + + + + | Specimen | + + | | + + + + + + + | Performing | Address | City/State/Zipcode | Phone Number | | Organization | | | | + + + + + | [facility] | [address] | [place] [address] | [phone] | + + + + + POC Glucose (02/16/2020 4:11 AM PDT) + + + + + + | Component | Value | Ref Range | Performed | Pathologist | | | | | At | Signature | + + + + + + | Glucose, | 118 (H)Comment: Testing | 65 - 99 mg/dL | [facility] | | | POC | performed at [facility];[address] | | LABORATORY | | | | [address];[place], [place] | | | | | | [address] | | | | + + + + + + + + | Specimen | + + | | + + + + + + + | Performing | Address | City/State/Zipcode | Phone Number | | Organization | | | | + + + + + | [facility] | [address] | [place] [address] | [phone] | + + + + + Magnesium (02/16/2020 3:08 AM PDT) + + + + + + | Component | Value | Ref Range | Performed | Pathologist | | | | | At | Signature | + + + + + + | Magnesium | 2.1Comment: Testing | 1.7 - 2.4 mg/dL | [facility] | | | | performed at [facility] | | LABORATORY | | | | [address];[place], [place] | | | | | | [address] | | | | + + + + + + + + | Specimen | + + | Blood | + + + + + + + | Performing | Address | City/State/Zipcode | Phone Number | | Organization | | | | + + + + + | [facility] | [address] | [place] [address] | [phone] | + + + + + CBC with Differential (02/16/2020 3:08 AM PDT) + + + + + + | Component | Value | Ref Range | Performed | Pathologist | | | | | At | Signature | + + + + + + | WBC | 13.74 (H) | 3.80 - 11.00 | [facility] | | | | | K/uL | LABORATORY | | + + + + + + | Red Blood | 3.14 (L) | 4.20 - 5.70 | [facility] | | | Cells | | M/uL | LABORATORY | | + + + + + + | Hemoglobin | 9.4 (L) | 13.2 - 17.0 | [facility] | | | | | g/dL | LABORATORY | | + + + + + + | Hematocrit | 29.0 (L) | 39.0 - 50.0 % | [facility] | | | | | | LABORATORY | | + + + + + + | MCV | 92.4 | 80.0 - 100.0 fl | [facility] | | | | | | LABORATORY | | + + + + + + | MCH | 29.9 | 27.0 - 34.0 pg | [facility] | | | | | | LABORATORY | | + + + + + + | MCHC | 32.4 | 32.0 - 35.5 | [facility] | | | | | g/dL | LABORATORY | | + + + + + + | RDW-SD | 48.3 | 37 - 53 fl | [facility] | | | | | | LABORATORY | | + + + + + + | Platelet | 197 | 150 - 400 K/uL | [facility] | | | Count | | | LABORATORY | | + + + + + + | MPV | 10.4Comment: NO NORMAL | fl | [facility] | | | | RANGE ESTABLISHED | | LABORATORY | | + + + + + + | Diff Type | AUTOMATED | | [facility] | | | | | | LABORATORY | | + + + + + + | % nRBC | 0.0 | 0 /100WBC | [facility] | | | | | | LABORATORY | | + + + + + + | % | 76.60 | % | [facility] | | | Neutrophils | | | LABORATORY | | + + + + + + | IMMATURE | 0.50 | % | [facility] | | | GRANULOCYTE | | | LABORATORY | | + + + + + + | % | 13.00 | % | [facility] | | | Lymphocytes | | | LABORATORY | | + + + + + + | Monocyte % | 9.50 | % | [facility] | | | | | | LABORATORY | | + + + + + + | Eosinophils | 0.30 | % | [facility] | | | % | | | LABORATORY | | + + + + + + | Basophils % | 0.10 | % | [facility] | | | | | | LABORATORY | | + + + + + + | Neutrophils | 10.52 (H) | 1.90 - 7.40 | [facility] | | | , Absolute | | K/uL | LABORATORY | | + + + + + + | IMMATURE | 0.07Comment: NOTE NEW | 0.00 - 0.07 | [facility] | | | GRANS AB | REFERENCE RANGE | K/uL | LABORATORY | | + + + + + + | Absolute | 1.78 | 1.00 - 3.90 | [facility] | | | Lymphocytes | | K/uL | LABORATORY | | + + + + + + | Absolute | 1.31 (H) | 0.00 - 0.80 | [facility] | | | Monocytes | | K/uL | LABORATORY | | + + + + + + | Eosinophils | 0.04 | 0.00 - 0.50 | [facility] | | | , Absolute | | K/uL | LABORATORY | | + + + + + + | Basophils, | 0.02Comment: Testing | 0.00 - 0.10 | [facility] | | | Absolute | [place] [facility] [place] | K/uL | LABORATORY | | | | [address], [place] | | | | | | [id number] | | | | + + + + + + + + | Specimen | + + | Blood | + + + + + + + | Performing | Address | City/State/Zipcode | Phone Number | | Organization | | | | + + + + + | [facility] | [address] | [place] [address] | [phone] | + + + + + Basic Metabolic Panel (02/16/2020 3:08 AM PDT) + + + + + + | Component | Value | Ref Range | Performed | Pathologist | | | | | At | Signature | + + + + + + | Na | 137 | 135 - 145 | [facility] | | | | | mmol/L | LABORATORY | | + + + + + + | K | 3.8 | 3.5 - 4.9 | [facility] | | | | | mmol/L | LABORATORY | | + + + + + + | Cl | 109 | 99 - 109 mmol/L | [facility] | | | | | | LABORATORY | | + + + + + + | CO2 | 27 | 23 - 32 mmol/L | [facility] | | | | | | LABORATORY | | + + + + + + | Anion Gap | 5 | 5 - 20 mmol/L | [facility] | | | | | | LABORATORY | | + + + + + + | Glucose | 112 (H) | 65 - 99 mg/dL | [facility] | | | | | | LABORATORY | | + + + + + + | BUN | 8 | 8 - 25 mg/dL | [facility] | | | | | | LABORATORY | | + + + + + + | Creatinine | 0.65 (L) | 0.70 - 1.30 | [facility] | | | | | mg/dL | LABORATORY | | + + + + + + | BUN/Creatin | 12 | | [facility] | | | ine Ratio | | | LABORATORY | | + + + + + + | Calcium | 7.9 (L) | 8.5 - 10.5 | [facility] | | | | | mg/dL | LABORATORY | | + + + + + + | Estimated | >60Comment: GFR <60: | >60 | [facility] | | | GFR | CHRONIC KIDNEY DISEASE, | mL/min/1.73m2 | LABORATORY | | | | IF FOUND OVER A 3 MONTH | | | | | | PERIOD.GFR <15: KIDNEY | | | | | | FAILURE.FOR | | | | | | AMERICANS, MULTIPLY THE | | | | | | CALCULATED GFR BY | | | | | | 1.210.This eGFR is | | | | | | calculated using the | | | | | | MDRD [facility] traceable | | | | | | equation.Testing | | | | | | performed at [facility] [place] | | | | | | [address];[place] | | | | | | [address] | | | | + + + + + + + + | Specimen | + + | Blood | + + + + + + + | Performing | Address | City/State/Zipcode | Phone Number | | Organization | | | | + + + + + | [facility] | [address] | [place] [address] | [phone] | + + + + + POC Glucose (02/16/2020 3:06 AM PDT) + + + + + + | Component | Value | Ref Range | Performed | Pathologist | | | | | At | Signature | + + + + + + | Glucose, | 115 (H)Comment: Testing | 65 - 99 mg/dL | [facility] | | | POC | performed at [facility] [place] | | LABORATORY | | | | [address];[place], [place] | | | | | | [address] | | | | + + + + + + + + | Specimen | + + | | + + + + + + + | Performing | Address | City/State/Zipcode | Phone Number | | Organization | | | | + + + + + | [facility] | [address] | [place] [address] | [phone] | + + + + + POC Glucose (02/16/2020 1:59 AM PDT) + + + + + + | Component | Value | Ref Range | Performed | Pathologist | | | | | At | Signature | + + + + + + | Glucose, | 142 (H)Comment: Testing | 65 - 99 mg/dL | [facility] | | | POC | performed at [facility] [place] | | LABORATORY | | | | [address];[place] | | | | | | [address] | | | | + + + + + + + + | Specimen | + + | | + + + + + + + | Performing | Address | City/State/Zipcode | Phone Number | | Organization | | | | + + + + + | [facility] | [address] | [place] [address] | [phone] | + + + + + POC Glucose (02/16/2020 12:55 AM PDT) + + + + + + | Component | Value | Ref Range | Performed | Pathologist | | | | | At | Signature | + + + + + + | Glucose, | 116 (H)Comment: Testing | 65 - 99 mg/dL | [facility] | | | POC | performed at [facility] [place] | | LABORATORY | | | | [address];[place], [place] | | | | | | [address] | | | | + + + + + + + + | Specimen | + + | | + + + + + + + | Performing | Address | City/State/Zipcode | Phone Number | | Organization | | | | + + + + + | [facility] | [address] | [place] [address] | [phone] | + + + + + POC Glucose (02/15/2020 11:17 PM PDT) + + + + + + | Component | Value | Ref Range | Performed | Pathologist | | | | | At | Signature | + + + + + + | Glucose, | 136 (H)Comment: Testing | 65 - 99 mg/dL | [facility] | | | POC | performed at [facility] [place] | | LABORATORY | | | | [address];[place] | | | | | | [address] | | | | + + + + + + + + | Specimen | + + | | + + + + + + + | Performing | Address | City/State/Zipcode | Phone Number | | Organization | | | | + + + + + | [facility] | [address] | [place] [address] | [phone] | + + + + + POC Glucose (02/15/2020 10:14 PM PDT) + + + + + + | Component | Value | Ref Range | Performed | Pathologist | | | | | At | Signature | + + + + + + | Glucose, | 169 (H)Comment: Testing | 65 - 99 mg/dL | [facility] | | | POC | performed at [facility] [place] [place] | | LABORATORY | | | | [address];[place] | | | | | | [address] | | | | + + + + + + + + | Specimen | + + | | + + + + + + + | Performing | Address | City/State/Zipcode | Phone Number | | Organization | | | | + + + + + | [facility] | [address] | [place] [address] | [phone] | + + + + + POC Glucose (02/15/2020 7:55 PM PDT) + + + + + + | Component | Value | Ref Range | Performed | Pathologist | | | | | At | Signature | + + + + + + | Glucose, | 121 (H)Comment: Testing | 65 - 99 mg/dL | [facility] | | | POC | performed at [facility] [place] | | LABORATORY | | | | [address];[place] | | | | | | [address] | | | | + + + + + + + + | Specimen | + + | | + + + + + + + | Performing | Address | City/State/Zipcode | Phone Number | | Organization | | | | + + + + + | [facility] | [address] | [place] [address] | [phone] | + + + + + Phosphorus (02/15/2020 6:16 PM PDT) + + + + + + | Component | Value | Ref Range | Performed | Pathologist | | | | | At | Signature | + + + + + + | Phosphorus | 2.1 (L)Comment: Testing | 2.3 - 4.8 mg/dL | [facility] | | | | performed at [facility] [place] [place] | | LABORATORY | | | | [facility];[place], [place] | | | | | | [address] | | | | + + + + + + + + | Specimen | + + | | + + + + + + + | Performing | Address | City/State/Zipcode | Phone Number | | Organization | | | | + + + + + | [facility] | [address] | [place] [address] | [phone] | + + + + + Magnesium (02/15/2020 6:16 PM PDT) + + + + + + | Component | Value | Ref Range | Performed | Pathologist | | | | | At | Signature | + + + + + + | Magnesium | 2.2Comment: Testing | 1.7 - 2.4 mg/dL | [facility] | | | | performed at [facility] [place];[address] | | LABORATORY | | | | [address];[place] | | | | | | [address] | | | | + + + + + + + + | Specimen | + + | | + + + + + + + | Performing | Address | City/State/Zipcode | Phone Number | | Organization | | | | + + + + + | [facility] | [address] | [place] [address] | [phone] | + + + + + Potassium (02/15/2020 6:16 PM PDT) + + + + + + | Component | Value | Ref Range | Performed | Pathologist | | | | | At | Signature | + + + + + + | K | 3.9Comment: Testing | 3.5 - 4.9 | [facility] | | | | performed at [facility] [place] | mmol/L | LABORATORY | | | | [address];[place], [place] | | | | | | [address] | | | | + + + + + + + + | Specimen | + + | Blood | + + + + + + + | Performing | Address | City/State/Zipcode | Phone Number | | Organization | | | | + + + + + | [facility] | [address] | [place] [address] | [phone] | + + + + + POC Glucose (02/15/2020 5:08 PM PDT) + + + + + + | Component | Value | Ref Range | Performed | Pathologist | | | | | At | Signature | + + + + + + | Glucose, | 121 (H)Comment: Testing | 65 - 99 mg/dL | [facility] | | | POC | performed at [facility] [place] [place];[address] | | LABORATORY | | | | [address];[place] | | | | | | [address] | | | | + + + + + + + + | Specimen | + + | | + + + + + + + | Performing | Address | City/State/Zipcode | Phone Number | | Organization | | | | + + + + + | [facility] | [address] | [place] [address] | [phone] | + + + + + POC Glucose (02/15/2020 2:59 PM PDT) + + + + + + | Component | Value | Ref Range | Performed | Pathologist | | | | | At | Signature | + + + + + + | Glucose, | 124 (H)Comment: Testing | 65 - 99 mg/dL | [facility] | | | POC | performed at [facility] [place] [place] | | LABORATORY | | | | [address];[place], [place] | | | | | | [address] | | | | + + + + + + + + | Specimen | + + | | + + + + + + + | Performing | Address | City/State/Zipcode | Phone Number | | Organization | | | | + + + + + | [facility] | [address] | [place] [address] | [phone] | + + + + + POC Glucose (02/15/2020 12:54 PM PDT) + + + + + + | Component | Value | Ref Range | Performed | Pathologist | | | | | At | Signature | + + + + + + | Glucose, | 103 (H)Comment: Testing | 65 - 99 mg/dL | [facility] | | | POC | performed at [facility] [place] | | LABORATORY | | | | [address];[place] | | | | | | [address] | | | | + + + + + + + + | Specimen | + + | | + + + + + + + | Performing | Address | City/State/Zipcode | Phone Number | | Organization | | | | + + + + + | [facility] | [address] | [place] [address] | [phone] | + + + + + POC Glucose (02/15/2020 10:45 AM PDT) + + + + + + | Component | Value | Ref Range | Performed | Pathologist | | | | | At | Signature | + + + + + + | Glucose, | 116 (H)Comment: Testing | 65 - 99 mg/dL | [facility] | | | POC | performed at [facility] [place] | | LABORATORY | | | | [address];[place] | | | | | | [address] | | | | + + + + + + + + | Specimen | + + | | + + + + + + + | Performing | Address | City/State/Zipcode | Phone Number | | Organization | | | | + + + + + | [facility] | [address] | [place] [address] | [phone] | + + + + + POC Glucose (02/15/2020 9:41 AM PDT) + + + + + + | Component | Value | Ref Range | Performed | Pathologist | | | | | At | Signature | + + + + + + | Glucose, | 110 (H)Comment: Testing | 65 - 99 mg/dL | [facility] | | | POC | performed at [facility] [place] | | LABORATORY | | | | [address];[place] | | | | | | [address] | | | | + + + + + + + + | Specimen | + + | | + + + + + + + | Performing | Address | City/State/Zipcode | Phone Number | | Organization | | | | + + + + + | [facility] | [address] | [place] [address] | [phone] | + + + + + POC Glucose (02/15/2020 8:33 AM PDT) + + + + + + | Component | Value | Ref Range | Performed | Pathologist | | | | | At | Signature | + + + + + + | Glucose, | 104 (H)Comment: Testing | 65 - 99 mg/dL | [facility] | | | POC | performed at [facility] [place];[address] | | LABORATORY | | | | [address];[place], [place] | | | | | | [address] | | | | + + + + + + + + | Specimen | + + | | + + + + + + + | Performing | Address | City/State/Zipcode | Phone Number | | Organization | | | | + + + + + | [facility] | [address] | [place] [address] | [phone] | + + + + + POC Glucose (02/15/2020 7:02 AM PDT) + + + + + + | Component | Value | Ref Range | Performed | Pathologist | | | | | At | Signature | + + + + + + | Glucose, | 108 (H)Comment: Testing | 65 - 99 mg/dL | [facility] | | | POC | performed at [facility] [place] | | LABORATORY | | | | [address];[place] | | | | | | [address] | | | | + + + + + + + + | Specimen | + + | | + + + + + + + | Performing | Address | City/State/Zipcode | Phone Number | | Organization | | | | + + + + + | [facility] | [address] | [place] [address] | [phone] | + + + + + POC Glucose (02/15/2020 5:37 AM PDT) + + + + + + | Component | Value | Ref Range | Performed | Pathologist | | | | | At | Signature | + + + + + + | Glucose, | 115 (H)Comment: Testing | 65 - 99 mg/dL | [facility] | | | POC | performed at [facility] [place];[address] | | LABORATORY | | | | [address];[place] | | | | | | [address] | | | | + + + + + + + + | Specimen | + + | | + + + + + + + | Performing | Address | City/State/Zipcode | Phone Number | | Organization | | | | + + + + + | [facility] | [address] | [place] [address] | [phone] | + + + + + XR Chest AP Portable (02/15/2020 5:25 AM PDT) + + | Specimen | + + | | + + + + + | Narrative | Performed At | + + + | CHEST PORTABLE ONE VIEW CLINICAL INFORMATION: Status post | [facility] | | open heart surgery. COMPARISON: XR CHEST AP PORTABLE (02/14/2020); | | | XR CHEST 2 VIEWS (02/06/2020); FINDINGS/IMPRESSION: 1. Interval | | | removal of endotracheal tube and enteric tube. Left basilar chest | | | tube and central mediastinal drain is stable in position. Right IJ | | | sheath with tip at the upper SVC level. Intact sternal wires with | | | stable configuration. 2. Low lung volumes. Probable perihilar and | | | bibasilar atelectasis, stable. 3. Cardiomediastinal contours are | | | stable. 4. No pneumothorax. Final Report Signed by: | | | Jagdish Salas, Oracio Sign Date/Time: 02/15/2020 6:48 AM | | + + + + + | Procedure Note | + + | Aidan, [id number] - 02/15/2020 6:51 AM PDT | | CHEST PORTABLE ONE VIEW | | | | CLINICAL INFORMATION: | | Status post open heart surgery. | | | | COMPARISON: | | XR CHEST AP PORTABLE (02/14/2020); XR CHEST 2 VIEWS (02/06/2020); | | | | FINDINGS/IMPRESSION: | | 1. Interval removal of endotracheal tube and enteric tube. Left | | basilar chest tube and central mediastinal drain is stable in position. | | Right IJ sheath with tip at the upper SVC level. Intact sternal wires | | with stable configuration. | | 2. Low lung volumes. Probable perihilar and bibasilar atelectasis, | | stable. | | 3. Cardiomediastinal contours are stable. | | 4. No pneumothorax. | | | | | | | | | | | | Final Report Signed by: Jagdish Salas Brian | | Sign Date/Time: 02/15/2020 6:48 AM | + + + +---------+ + + | Performing | Address | City/State/Zipcode | Phone Number | | Organization | | | | + +---------+ + + | [facility] | | | | + +---------+ + + Magnesium (02/15/2020 3:49 AM PDT) + + + + + + | Component | Value | Ref Range | Performed | Pathologist | | | | | At | Signature | + + + + + + | Magnesium | 1.7Comment: Testing | 1.7 - 2.4 mg/dL | [facility] | | | | performed at [facility] [place] | | LABORATORY | | | | [address];[place], [place] | | | | | | [address] | | | | + + + + + + + + | Specimen | + + | Blood | + + + + + + + | Performing | Address | City/State/Zipcode | Phone Number | | Organization | | | | + + + + + | [facility] | [address] | [place] [address] | [phone] | + + + + + CBC with Differential (02/15/2020 3:49 AM PDT) + + + + + + | Component | Value | Ref Range | Performed | Pathologist | | | | | At | Signature | + + + + + + | WBC | 14.51 (H) | 3.80 - 11.00 | [facility] | | | | | K/uL | LABORATORY | | + + + + + + | Red Blood | 3.06 (L) | 4.20 - 5.70 | [facility] | | | Cells | | M/uL | LABORATORY | | + + + + + + | Hemoglobin | 9.1 (L) | 13.2 - 17.0 | [facility] | | | | | g/dL | LABORATORY | | + + + + + + | Hematocrit | 27.9 (L) | 39.0 - 50.0 % | [facility] | | | | | | LABORATORY | | + + + + + + | MCV | 91.2 | 80.0 - 100.0 fl | [facility] | | | | | | LABORATORY | | + + + + + + | MCH | 29.7 | 27.0 - 34.0 pg | [facility] | | | | | | LABORATORY | | + + + + + + | MCHC | 32.6 | 32.0 - 35.5 | [facility] | | | | | g/dL | LABORATORY | | + + + + + + | RDW-SD | 47.2 | 37 - 53 fl | [facility] | | | | | | LABORATORY | | + + + + + + | Platelet | 220 | 150 - 400 K/uL | [facility] | | | Count | | | LABORATORY | | + + + + + + | MPV | 10.3Comment: NO NORMAL | fl | [facility] | | | | RANGE ESTABLISHED | | LABORATORY | | + + + + + + | Diff Type | AUTOMATED | | [facility] | | | | | | LABORATORY | | + + + + + + | % nRBC | 0.0 | 0 /100WBC | [facility] | | | | | | LABORATORY | | + + + + + + | % | 72.50 | % | [facility] | | | Neutrophils | | | LABORATORY | | + + + + + + | IMMATURE | 0.50 | % | [facility] | | | GRANULOCYTE | | | LABORATORY | | + + + + + + | % | 18.10 | % | [facility] | | | Lymphocytes | | | LABORATORY | | + + + + + + | Monocyte % | 8.70 | % | [facility] | | | | | | LABORATORY | | + + + + + + | Eosinophils | 0.10 | % | [facility] | | | % | | | LABORATORY | | + + + + + + | Basophils % | 0.10 | % | [facility] | | | | | | LABORATORY | | + + + + + + | Neutrophils | 10.53 (H) | 1.90 - 7.40 | [facility] | | | , Absolute | | K/uL | LABORATORY | | + + + + + + | IMMATURE | 0.07Comment: NOTE NEW | 0.00 - 0.07 | [facility] | | | GRANS AB | REFERENCE RANGE | K/uL | LABORATORY | | + + + + + + | Absolute | 2.62 | 1.00 - 3.90 | [facility] | | | Lymphocytes | | K/uL | LABORATORY | | + + + + + + | Absolute | 1.26 (H) | 0.00 - 0.80 | [facility] | | | Monocytes | | K/uL | LABORATORY | | + + + + + + | Eosinophils | 0.01 | 0.00 - 0.50 | [facility] | | | , Absolute | | K/uL | LABORATORY | | + + + + + + | Basophils, | 0.02Comment: Testing | 0.00 - 0.10 | [facility] | | | Absolute | performed at [facility] | K/uL | LABORATORY | | | | [facility];[place], [place] | | | | | | [address] | | | | + + + + + + + + | Specimen | + + | Blood | + + + + + + + | Performing | Address | City/State/Zipcode | Phone Number | | Organization | | | | + + + + + | [facility] | [address] | [place] [address] | [phone] | + + + + + Basic Metabolic Panel (02/15/2020 3:49 AM PDT) + + + + + + | Component | Value | Ref Range | Performed | Pathologist | | | | | At | Signature | + + + + + + | Na | 144 | 135 - 145 | [facility] | | | | | mmol/L | LABORATORY | | + + + + + + | K | 4.0 | 3.5 - 4.9 | [facility] | | | | | mmol/L | LABORATORY | | + + + + + + | Cl | 115 (H) | 99 - 109 mmol/L | [facility] | | | | | | LABORATORY | | + + + + + + | CO2 | 25 | 23 - 32 mmol/L | [facility] | | | | | | LABORATORY | | + + + + + + | Anion Gap | 8 | 5 - 20 mmol/L | [facility] | | | | | | LABORATORY | | + + + + + + | Glucose | 93 | 65 - 99 mg/dL | [facility] | | | | | | LABORATORY | | + + + + + + | BUN | 9 | 8 - 25 mg/dL | [facility] | | | | | | LABORATORY | | + + + + + + | Creatinine | 0.73 | 0.70 - 1.30 | [facility] | | | | | mg/dL | LABORATORY | | + + + + + + | BUN/Creatin | 12 | | [facility] | | | ine Ratio | | | LABORATORY | | + + + + + + | Calcium | 7.1 (L) | 8.5 - 10.5 | [facility] | | | | | mg/dL | LABORATORY | | + + + + + + | Estimated | >60Comment: GFR <60: | >60 | [facility] | | | GFR | CHRONIC KIDNEY DISEASE, | mL/min/1.73m2 | LABORATORY | | | | IF FOUND OVER A 3 MONTH | | | | | | PERIOD.GFR <15: KIDNEY | | | | | | FAILURE.FOR | | | | | | AMERICANS, MULTIPLY THE | | | | | | CALCULATED GFR BY | | | | | | 1.210.This eGFR is | | | | | | calculated using the | | | | | | [facility] traceable | | | | | | equation.Testing | | | | | | performed at [facility] | | | | | | [facility];[place], [place] | | | | | | [address] | | | | + + + + + + + + | Specimen | + + | Blood | + + + + + + + | Performing | Address | City/State/Zipcode | Phone Number | | Organization | | | | + + + + + | [facility] | [address] | [place] [address] | [phone] | + + + + + POC Glucose (02/15/2020 3:48 AM PDT) + + + + + + | Component | Value | Ref Range | Performed | Pathologist | | | | | At | Signature | + + + + + + | Glucose, | 96Comment: Testing | 65 - 99 mg/dL | [facility] | | | POC | performed at [facility];[address] | | LABORATORY | | | | [address];[place] | | | | | | [address] | | | | + + + + + + + + | Specimen | + + | | + + + + + + + | Performing | Address | City/State/Zipcode | Phone Number | | Organization | | | | + + + + + | [facility] | [address] | [place] [address] | [phone] | + + + + + POC Glucose (02/15/2020 1:02 AM PDT) + + + + + + | Component | Value | Ref Range | Performed | Pathologist | | | | | At | Signature | + + + + + + | Glucose, | 107 (H)Comment: Testing | 65 - 99 mg/dL | [facility] | | | POC | performed at [facility];[address] | | LABORATORY | | | | [address];[place] | | | | | | [address] | | | | + + + + + + + + | Specimen | + + | | + + + + + + + | Performing | Address | City/State/Zipcode | Phone Number | | Organization | | | | + + + + + | [facility] | [address] | [place] [address] | [phone] | + + + + + Potassium (02/14/2020 11:58 PM PDT) + + + + + + | Component | Value | Ref Range | Performed | Pathologist | | | | | At | Signature | + + + + + + | K | 4.1Comment: Testing | 3.5 - 4.9 | [facility] | | | | performed at [facility];[address] | mmol/L | LABORATORY | | | | [facility];[place], [place] | | | | | | [address] | | | | + + + + + + + + | Specimen | + + | Blood | + + + + + + + | Performing | Address | City/State/Zipcode | Phone Number | | Organization | | | | + + + + + | [facility] | [address] | [place] [address] | [phone] | + + + + + POC Glucose (02/14/2020 11:57 PM PDT) + + + + + + | Component | Value | Ref Range | Performed | Pathologist | | | | | At | Signature | + + + + + + | Glucose, | 100 (H)Comment: Testing | 65 - 99 mg/dL | [facility] | | | POC | performed at [facility];[address] | | LABORATORY | | | | [address];[place] | | | | | | [address] | | | | + + + + + + + + | Specimen | + + | | + + + + + + + | Performing | Address | City/State/Zipcode | Phone Number | | Organization | | | | + + + + + | [facility] | [address] | [place] [address] | [phone] | + + + + + POC Glucose (02/14/2020 10:08 PM PDT) + + + + + + | Component | Value | Ref Range | Performed | Pathologist | | | | | At | Signature | + + + + + + | Glucose, | 114 (H)Comment: Testing | 65 - 99 mg/dL | [facility] | | | POC | performed at [facility];[address] | | LABORATORY | | | | [address];[place], [place] | | | | | | [address] | | | | + + + + + + + + | Specimen | + + | | + + + + + + + | Performing | Address | City/State/Zipcode | Phone Number | | Organization | | | | + + + + + | [facility] | [address] | [place] [address] | [phone] | + + + + + Potassium (02/14/2020 9:30 PM PDT) + + + + + + | Component | Value | Ref Range | Performed | Pathologist | | | | | At | Signature | + + + + + + | K | 4.5Comment: Testing | 3.5 - 4.9 | [facility] | | | | performed at [facility] [place] | mmol/L | [facility] | | | | [facility];[place], [place] | | | | | | [address] | | | | + + + + + + + + | Specimen | + + | Blood | + + + + + + + | Performing | Address | City/State/Zipcode | Phone Number | | Organization | | | | + + + + + | [facility] | [address] | [place] [address] | [phone] | + + + + + POC Glucose (02/14/2020 8:02 PM PDT) + + + + + + | Component | Value | Ref Range | Performed | Pathologist | | | | | At | Signature | + + + + + + | Glucose, | 115 (H)Comment: Testing | 65 - 99 mg/dL | [facility] | | | POC | performed at [facility] [place] | | LABORATORY | | | [address];[place], [place] | | | | | | [address] | | | | + + + + + + + + | Specimen | + + | | + + + + + + + | Performing | Address | City/State/Zipcode | Phone Number | | Organization | | | | + + + + + | [facility] | [address] | [place] [address] | [phone] | + + + + + POC Glucose (02/14/2020 6:19 PM PDT) + + + + + + | Component | Value | Ref Range | Performed | Pathologist | | | | | At | Signature | + + + + + + | Glucose, | 113 (H)Comment: Testing | 65 - 99 mg/dL | [facility] | | | POC | performed at [facility] [place] | | LABORATORY | | | | [address];[place] | | | | | | [address] | | | | + + + + + + + + | Specimen | + + | | + + + + + + + | Performing | Address | City/State/Zipcode | Phone Number | | Organization | | | | + + + + + | [facility] | [address] | [place] [address] | [phone] | + + + + + Potassium (02/14/2020 4:09 PM PDT) + + + + + + | Component | Value | Ref Range | Performed | Pathologist | | | | | At | Signature | + + + + + + | K | 4.1Comment: Testing | 3.5 - 4.9 | [facility] | | | | performed at [facility] [place] | mmol/L | LABORATORY | | | | [facility];[place], [place] | | | | | | [address] | | | | + + + + + + + + | Specimen | + + | Blood | + + + + + + + | Performing | Address | City/State/Zipcode | Phone Number | | Organization | | | | + + + + + | [facility] | [address] | [place] [address] | [phone] | + + + + + Blood gas, Arterial (02/14/2020 4:02 PM PDT) + + + + + + | Component | Value | Ref Range | Performed | Pathologist | | | | | At | Signature | + + + + + + | FiO2, POC | 40 | % | [facility] | | | | | | LABORATORY | | + + + + + + | pH, | 7.299 (L)Comment: This | 7.350 - 7.450 | [facility] | | | Arterial, | test was developed and | | LABORATORY | | | POC | its performance | | | | | | characteristics | | | | | | determined by[employer], it | | | | | | has not been cleared or | | | | | | approved by the [place] FDA. | | | | | | Clinicians should | | | | | | beadvised to consider a | | | | | | patient's signs, | | | | | | symptoms, history, and | | | | | | results of | | | | | | otherdiagnostic tests | | | | | | when interpreting | | | | | | results from these | | | | | | cartridges. | | | | + + + + + + | pCO2, | 44 | 35 - 45 mmHg | [facility] | | | Arterial | | | LABORATORY | | + + + + + + | pO2, | 77 (L) | 80 - 105 mmHg | [facility] | | | Arterial | | | LABORATORY | | + + + + + + | HCO3, | 22 | 22 - 26 mmol/L | [facility] | | | Arterial | | | LABORATORY | | + + + + + + | TCO2, | 23 | 23 - 27 mEq/L | [facility] | | | Arterial, | | | LABORATORY | | | POC | | | | | + + + + + + | POC Base | 5 (H) | 0.0 - 2.0 | [facility] | | | Deficit | | mmol/L | LABORATORY | | | mmol/L | | | | | + + + + + + | SO2, | 94 (L)Comment: Testing | 95 - 98 % | [facility] | | | Arterial, | performed at [facility] [place] | | LABORATORY | | | POC | [address];[place] | | | | | | [address] | | | | + + + + + + + + | Specimen | + + | | + + + + + + + | Performing | Address | City/State/Zipcode | Phone Number | | Organization | | | | + + + + + | [facility] | [address] | [place] [address] | [phone] | + + + + + POC Glucose (02/14/2020 3:57 PM PDT) + + + + + + | Component | Value | Ref Range | Performed | Pathologist | | | | | At | Signature | + + + + + + | Glucose, | 121 (H)Comment: Testing | 65 - 99 mg/dL | [facility] | | | POC | performed at [facility] [place] | | LABORATORY | | | | [address];[place] | | | | | | [address] | | | | + + + + + + + + | Specimen | + + | | + + + + + + + | Performing | Address | City/State/Zipcode | Phone Number | | Organization | | | | + + + + + | [facility] | [address] | [place] [address] | [phone] | + + + + + POC Glucose (02/14/2020 2:51 PM PDT) + + + + + + | Component | Value | Ref Range | Performed | Pathologist | | | | | At | Signature | + + + + + + | Glucose, | 131 (H)Comment: Testing | 65 - 99 mg/dL | [facility] | | | POC | performed at [facility] [place] | | LABORATORY | | | | [address];[place], [place] | | | | | | [address] | | | | + + + + + + + + | Specimen | + + | | + + + + + + + | Performing | Address | City/State/Zipcode | Phone Number | | Organization | | | | + + + + + | [facility] | [address] | [place] [address] | [phone] | + + + + + POC Glucose (02/14/2020 1:46 PM PDT) + + + + + + | Component | Value | Ref Range | Performed | Pathologist | | | | | At | Signature | + + + + + + | Glucose, | 134 (H)Comment: Testing | 65 - 99 mg/dL | [facility] | | | POC | performed at [facility] [place] | | LABORATORY | | | | [address];[place] | | | | | | [address] | | | | + + + + + + + + | Specimen | + + | | + + + + + + + | Performing | Address | City/State/Zipcode | Phone Number | | Organization | | | | + + + + + | [facility] | [address] | [place] [address] | [phone] | + + + + + ECG 12 lead (02/14/2020 1:12 PM PDT) + + + + + + | Component | Value | Ref Range | Performed | Pathologist | | | | | At | Signature | + + + + + + | VENTRICULAR | 94 | BPM | [facility] | | | RATE EKG | | | | | + + + + + + | ATRIAL RATE | 94 | BPM | [facility] | | + + + + + + | P-R | 140 | ms | [facility] | | | INTERVAL | | | | | + + + + + + | QRS | 98 | ms | [facility] | | | DURATION | | | | | + + + + + + | Q-T | 392 | ms | [facility] | | | INTERVAL | | | | | + + + + + + | Q-T | 490 | ms | [facility] | | | INTERVAL | | | | | | (CORRECTED) | | | | | + + + + + + | P WAVE AXIS | 45 | degrees | [facility] | | + + + + + + | QRS AXIS | 70 | degrees | [facility] | | + + + + + + | T AXIS | 42 | degrees | [facility] | | + + + + + + | INTERPRETAT | Normal sinus | | [facility] | | | ION TEXT | rhythmNormal ECGWhen | | | | | | compared with ECG of | | | | | | 10-NOV-2019 05:09,No | | | | | | significant change was | | | | | | foundConfirmed by | | | | | | SHAUN VELOZ MD | | | | | | ([id number]) on 02/16/2020 | | | | | | 10:34:06 PM | | | | + + + + + + + + | Specimen | + + | | + + + + + | Narrative | Performed At | + + + | | | + + + + +---------+ + + | Performing | Address | City/State/Zipcode | Phone Number | | Organization | | | | + +---------+ + + | [facility] | | | | + +---------+ + + Blood gas, Arterial (02/14/2020 12:51 PM PDT) + + + + + + | Component | Value | Ref Range | Performed | Pathologist | | | | | At | Signature | + + + + + + | FiO2, POC | 50 | % | [facility] | | | | | | LABORATORY | | + + + + + + | pH, | 7.232 (LL)Comment: This | 7.350 - 7.450 | [facility] | | | Arterial, | test was developed and | | LABORATORY | | | POC | its performance | | | | | | characteristics | | | | | | determined by[facility], it | | | | | | has not been cleared or | | | | | | approved by the [place] FDA. | | | | | | Clinicians should | | | | | | beadvised to consider a | | | | | | patient's signs, | | | | | | symptoms, history, and | | | | | | results of | | | | | | otherdiagnostic tests | | | | | | when interpreting | | | | | | results from these | | | | | | cartridges. | | | | + + + + + + | pCO2, | 53 (H) | 35 - 45 mmHg | [facility] | | | Arterial | | | LABORATORY | | + + + + + + | pO2, | 88 | 80 - 105 mmHg | [facility] | | | Arterial | | | LABORATORY | | + + + + + + | HCO3, | 22 | 22 - 26 mmol/L | [facility] | | | Arterial | | | LABORATORY | | + + + + + + | TCO2, | 24 | 23 - 27 mEq/L | [facility] | | | Arterial, | | | LABORATORY | | | POC | | | | | + + + + + + | POC Base | 5 (H) | 0.0 - 2.0 | [facility] | | | Deficit | | mmol/L | LABORATORY | | | mmol/L | | | | | + + + + + + | SO2, | 95Comment: Testing | 95 - 98 % | [facility] | | | Arterial, | performed at [facility] [place] | | LABORATORY | | | POC | [address];[place] | | | | | | [address] | | | | + + + + + + + + | Specimen | + + | | + + + + + + + | Performing | Address | City/State/Zipcode | Phone Number | | Organization | | | | + + + + + | [facility] | [address] | [place] [address] | [phone] | + + + + + XR Chest AP Portable (02/14/2020 12:45 PM PDT) + + | Specimen | + + | | + + + + + | Impressions | Performed At | + + + | 1. Expected postoperative changes with appropriate position of | [facility] | | support lines and tubes. 2. Small left effusion and left basilar | | | atelectasis. Final Report Signed by: Jagdish Wilde, | | | Oracio Sign Date/Time: 02/14/2020 1:24 PM | | + + + + + + | Narrative | Performed At | + + + | AP PORTABLE CHEST CLINICAL INFORMATION: Open-heart surgery | [facility] | | COMPARISON: XR CHEST 2 VIEWS (02/06/2020); FINDINGS: Since | | | prior exam median sternotomy wires are new. Endotracheal tube, | | | esophagogastric tube, and right internal jugular central venous | | | catheter new. Large bore left-sided chest tube noted in the region | | | the costophrenic sulcus. Perihilar vasculature mildly indistinct. | | | Small bilateral effusions suspected. | | + + + + + | Procedure Note | + + | Aidan, [id number] - 02/14/2020 1:28 PM PDT | | AP PORTABLE CHEST | | | | CLINICAL INFORMATION: | | Open-heart surgery | | | | COMPARISON: | | XR CHEST 2 VIEWS (02/06/2020); | | | | FINDINGS: | | Since prior exam median sternotomy wires are new. Endotracheal tube, | | esophagogastric tube, and right internal jugular central venous | | catheter new. Large bore left-sided chest tube noted in the region the | | costophrenic sulcus. Perihilar vasculature mildly indistinct. Small | | bilateral effusions suspected. | | | | IMPRESSION: | | 1. Expected postoperative changes with appropriate position of support | | lines and tubes. | | 2. Small left effusion and left basilar atelectasis. | | | | | | | | | | Final Report Signed by: Jagdish Wilde Brian | | Sign Date/Time: 02/14/2020 1:24 PM | + + + +---------+ + + | Performing | Address | City/State/Zipcode | Phone Number | | Organization | | | | + +---------+ + + | [facility] | | | | + +---------+ + + POC Glucose (02/14/2020 12:42 PM PDT) + + + + + + | Component | Value | Ref Range | Performed | Pathologist | | | | | At | Signature | + + + + + + | Glucose, | 146 (H)Comment: Testing | 65 - 99 mg/dL | [facility] | | | POC | performed at [facility] [place] [place] | | LABORATORY | | | | [address];[place], [place] | | | | | | [address] | | | | + + + + + + + + | Specimen | + + | | + + + + + + + | Performing | Address | City/State/Zipcode | Phone Number | | Organization | | | | + + + + + | [facility] | [address] | [place] [address] | [phone] | + + + + + Calcium, Ionized, Venous (02/14/2020 12:35 PM PDT) + + + + + + | Component | Value | Ref Range | Performed | Pathologist | | | | | At | Signature | + + + + + + | Calcium, | 1.12 | 1.08 - 1.25 | [facility] | | | Ionized | | mmol/L | LABORATORY | | + + + + + + | pH, Venous | 7.270 (L)Comment: | 7.300 - 7.450 | [facility] | | | | Testing performed at | | LABORATORY | | | | [facility];[address] [facility] | | | | | | [address];[place] [address] | | | | + + + + + + + + | Specimen | + + | Blood | + + + + + + + | Performing | Address | City/State/Zipcode | Phone Number | | Organization | | | | + + + + + | [facility] | [address] | [place] [address] | [phone] | + + + + + Hemoglobin A1C (02/14/2020 12:30 PM PDT) + + + + + + | Component | Value | Ref Range | Performed | Pathologist | | | | | At | Signature | + + + + + + | Hemoglobin | 12.1 (H)Comment: | 4.8 - 5.6 % | [facility] | | | A1c | Prediabetes: 5.7 - | | LABORATORY | | | | 6.4 Diabetes: | | | | | | >6.4 | | | | | | Glycemic control for | | | | | | adults with diabetes: | | | | | | <7.0Testing performed at | | | | | | [facility], [address], | | | | | | [facility] [address], [facility] | | | | | | [address] | | | | + + + + + + + + | Specimen | + + | Blood | + + + + + + + | Performing | Address | City/State/Zipcode | Phone Number | | Organization | | | | + + + + + | [facility] | [address] | [place] [address] | [phone] | + + + + + PTT (02/14/2020 12:30 PM PDT) + + + + + + | Component | Value | Ref Range | Performed | Pathologist | | | | | At | Signature | + + + + + + | PTT | 24Comment: Testing | 23 - 32 seconds | [facility] | | | | performed at [facility] [place] | | LABORATORY | | | | [address];[place], [place] | | | | | | [address] | | | | + + + + + + + + | Specimen | + + | Blood | + + + + + + + | Performing | Address | City/State/Zipcode | Phone Number | | Organization | | | | + + + + + | [facility] | [address] | [place] [address] | [phone] | + + + + + Protime INR (02/14/2020 12:30 PM PDT) + + + + + + | Component | Value | Ref Range | Performed | Pathologist | | | | | At | Signature | + + + + + + | INR | 1.2Comment: REFERENCE | | [facility] | | | | RANGE:0.9 - 1.2 | | LABORATORY | | | | NON-ANTICOAGULATED2.0 | | | | | | - 3.0 ALL OTHER | | | | | | THERAPEUTIC | | | | | | INDICATIONS2.5 - 3.5 | | | | | | MECHANICAL HEART VALVES, | | | | | | RECURRENT OR SYSTEMIC | | | | | | EMBOLISMTesting | | | | | | performed at [facility] [place];[address] | | | | | [address];[place], [place] | | | | | | [address] | | | | + + + + + + + + | Specimen | + + | Blood | + + + + + + + | Performing | Address | City/State/Zipcode | Phone Number | | Organization | | | | + + + + + | [facility] | [address] | [place] [address] | [phone] | + + + + + Magnesium (02/14/2020 12:30 PM PDT) + + + + + + | Component | Value | Ref Range | Performed | Pathologist | | | | | At | Signature | + + + + + + | Magnesium | 2.4Comment: Testing | 1.7 - 2.4 mg/dL | [facility] | | | | performed at [facility] [place] [place] | | LABORATORY | | | | [address];[place], [place] | | | | | | [address] | | | | + + + + + + + + | Specimen | + + | Blood | + + + + + + + | Performing | Address | City/State/Zipcode | Phone Number | | Organization | | | | + + + + + | [facility] | [address] | [place] [address] | [phone] | + + + + + Fibrinogen (02/14/2020 12:30 PM PDT) + + + + + + | Component | Value | Ref Range | Performed | Pathologist | | | | | At | Signature | + + + + + + | Fibrinogen | 195 (L)Comment: Testing | 200 - 450 mg/dL | [facility] | | | | performed at [facility] [place];[address] | | LABORATORY | | | | [address];[place], [place] | | | | | | [address] | | | | + + + + + + + + | Specimen | + + | Blood | + + + + + + + | Performing | Address | City/State/Zipcode | Phone Number | | Organization | | | | + + + + + | [facility] | [address] | [place] [address] | [phone] | + + + + + CBC with Differential (02/14/2020 12:30 PM PDT) + + + + + + | Component | Value | Ref Range | Performed | Pathologist | | | | | At | Signature | + + + + + + | WBC | 23.13 (H) | 3.80 - 11.00 | [facility] | | | | | K/uL | LABORATORY | | + + + + + + | Red Blood | 3.51 (L) | 4.20 - 5.70 | [facility] | | | Cells | | M/uL | LABORATORY | | + + + + + + | Hemoglobin | 10.5 (L) | 13.2 - 17.0 | [facility] | | | | | g/dL | LABORATORY | | + + + + + + | Hematocrit | 32.4 (L) | 39.0 - 50.0 % | [facility] | | | | | | LABORATORY | | + + + + + + | MCV | 92.3 | 80.0 - 100.0 fl | [facility] | | | | | | LABORATORY | | + + + + + + | MCH | 29.9 | 27.0 - 34.0 pg | [facility] | | | | | | LABORATORY | | + + + + + + | MCHC | 32.4 | 32.0 - 35.5 | [facility] | | | | | g/dL | LABORATORY | | + + + + + + | RDW-SD | 46.9 | 37 - 53 fl | [facility] | | | | | | LABORATORY | | + + + + + + | Platelet | 152 | 150 - 400 K/uL | [facility] | | | Count | | | LABORATORY | | + + + + + + | MPV | 10.6Comment: NO NORMAL | fl | [facility] | | | | RANGE ESTABLISHED | | LABORATORY | | + + + + + + | Diff Type | AUTOMATED | | [facility] | | | | | | LABORATORY | | + + + + + + | % nRBC | 0.0 | 0 /100WBC | [facility] | | | | | | LABORATORY | | + + + + + + | % | 79.30 | % | [facility] | | | Neutrophils | | | LABORATORY | | + + + + + + | IMMATURE | 1.30 | % | [facility] | | | GRANULOCYTE | | | LABORATORY | | + + + + + + | % | 11.40 | % | [facility] | | | Lymphocytes | | | LABORATORY | | + + + + + + | Monocyte % | 7.50 | % | [facility] | | | | | | LABORATORY | | + + + + + + | Eosinophils | 0.30 | % | [facility] | | | % | | | LABORATORY | | + + + + + + | Basophils % | 0.20 | % | [facility] | | | | | | LABORATORY | | + + + + + + | Neutrophils | 18.35 (H) | 1.90 - 7.40 | [facility] | | | , Absolute | | K/uL | LABORATORY | | + + + + + + | IMMATURE | 0.29 (H)Comment: NOTE | 0.00 - 0.07 | [facility] | | | GRANS AB | NEW REFERENCE RANGE | K/uL | LABORATORY | | + + + + + + | Absolute | 2.63 | 1.00 - 3.90 | [facility] | | | Lymphocytes | | K/uL | LABORATORY | | + + + + + + | Absolute | 1.74 (H) | 0.00 - 0.80 | [facility] | | | Monocytes | | K/uL | LABORATORY | | + + + + + + | Eosinophils | 0.08 | 0.00 - 0.50 | [facility] | | | , Absolute | | K/uL | LABORATORY | | + + + + + + | Basophils, | 0.04Comment: Testing | 0.00 - 0.10 | [facility] | | | Absolute | performed at [facility] [place] | K/uL | LABORATORY | | | | [address];[place], [place] | | | | | | [address] | | | | + + + + + + + + | Specimen | + + | Blood | + + + + + + + | Performing | Address | City/State/Zipcode | Phone Number | | Organization | | | | + + + + + | [facility] | [address] | [place] [address] | [phone] | + + + + + Basic Metabolic Panel (02/14/2020 12:30 PM PDT) + + + + + + | Component | Value | Ref Range | Performed | Pathologist | | | | | At | Signature | + + + + + + | Na | 141 | 135 - 145 | [facility] | | | | | mmol/L | LABORATORY | | + + + + + + | K | 4.3 | 3.5 - 4.9 | [facility] | | | | | mmol/L | LABORATORY | | + + + + + + | Cl | 114 (H) | 99 - 109 mmol/L | [facility] | | | | | | LABORATORY | | + + + + + + | CO2 | 25 | 23 - 32 mmol/L | [facility] | | | | | | LABORATORY | | + + + + + + | Anion Gap | 6 | 5 - 20 mmol/L | [facility] | | | | | | LABORATORY | | + + + + + + | Glucose | 142 (H) | 65 - 99 mg/dL | [facility] | | | | | | LABORATORY | | + + + + + + | BUN | 12 | 8 - 25 mg/dL | [facility] | | | | | | LABORATORY | | + + + + + + | Creatinine | 0.83 | 0.70 - 1.30 | [facility] | | | | | mg/dL | LABORATORY | | + + + + + + | BUN/Creatin | 14 | | [facility] | | | ine Ratio | | | LABORATORY | | + + + + + + | Calcium | 7.2 (L) | 8.5 - 10.5 | [facility] | | | | | mg/dL | LABORATORY | | + + + + + + | Estimated | >60Comment: GFR <60: | >60 | [facility] | | | GFR | CHRONIC KIDNEY DISEASE, | mL/min/1.73m2 | LABORATORY | | | | IF FOUND OVER A 3 MONTH | | | | | | PERIOD.GFR <15: KIDNEY | | | | | | FAILURE.FOR | | | | | | AMERICANS, MULTIPLY THE | | | | | | CALCULATED GFR BY | | | | | | 1.210.This eGFR is | | | | | | calculated using the | | | | | | MDRD IDMS traceable | | | | | | equation.Testing | | | | | | performed at [facility];[address] | | | | | | [facility];[place], [place] | | | | | | [address] | | | | + + + + + + + + | Specimen | + + | Blood | + + + + + + + | Performing | Address | City/State/Zipcode | Phone Number | | Organization | | | | + + + + + | [facility] | [address] | [place] [address] | [phone] | + + + + + ECHO Transesophageal (JOHN) - Periop (02/14/2020 12:23 PM PDT) + + | Specimen | + + | | + + + + + | Narrative | Performed At | + + + | | [facility] | | Transesophageal Echocardiography Report (JOHN) Demographics Patient | | | Name NILSA JAMA Room Number 9115 | | | JR. 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 | | | Procedure DateDate: 02/14/2020 Start: 06:47 AM Conclusions Summary | | | Significant mobile plaque in the arch and descending aorta. Post CABG, | | | no change in [place] valvular function or new segmental wall motion | | | abnormalities. Signature | | | | | | Electronically signed by WING CowartInterpreting physician) on | | | 02/19/2020 at 12:56 PM | | | | | | Structures Left Atrium LA Systolic | | | Pressure: 7.98 mmHg Left Atrium Findings Normal size left atrium. | | | Left Ventricle Diastolic Dimension: 4.42 cm Septum Diastolic: 1.12 cm | | | PW Diastolic: 1.06 cm LVOT Diameter: 2.3 cm Left Ventricle Findings | | | Left ventricle is normal in size and function. Ejection fraction is | | | estimated at 60%. Right Atrium Right Atrium Findings Normal right | | | atrial size. Right Ventricle Right Ventricle Findings Normal right | | | ventricular size. Right ventricle global systolic function is normal. | | | MiscellaneousAorta Aortic Root: 2.38 cm | | | Aortic Arch: 2.76 cm Ascending Aorta: 3.16 cm | | | Descending Aorta: 2.34 cm LVOT Diameter: 2.3 cm Pulmonary Artery | | | Right PA: 2.23 cm Pulmonary Vein: S Velocity: 53.54 cm/s | | | A Reversal Velocity: 21.04 cm/s D Velocity: 45.56 cm/s A | | | Reversal Duration: 143 msec Miscellaneous FindingsMeasurements and | | | calculations provided in the report sections maybeincomplete. | | | Additional m-mode, 2D, Doppler, Doppler tissue, strain, andother | | | hemodynamic assessments performed and documented within the | | | imageviewer. Pericardium Pericardial Effusion Findings No evidence | | | of pericardial effusion. Pleura Pleural Effusion Findings No | | | evidence of pleural effusion. Valves Mitral Valve Peak E-Wave: 69.33 | | | cm/s Peak A-Wave: 40.87 cm/s P1/2t: 51.1 msec | | | E/A Ratio: 1.7 | | | Deceleration Time: 190.1 msec | | | Area (PHT): 4.31 cm^2 Tissue Doppler E' Lateral Velocity: 14.49 cm/s | | | Mitral Valve Findings Structurally normal mitral valve without | | | significant stenosis or regurgitation. Aortic Valve | | | Area (2D): 3.99 cm^2 Aortic Valve Findings Aortic | | | valve and LVOT are structurally normal. Normal aortic valve flow by | | | color and Doppler imaging. No aortic valve regurgitation. Tricuspid | | | Valve Tricuspid Valve Findings Structurally normal tricuspid valve | | | without significant stenosis but trace regurgitation. Pulmonic Valve | | | Pulmonic Valve Findings Normal pulmonic valve structure and function. | | | Trace PI LVOT LVOT Diameter: 2.3 cm | | | Left Ventricle | | | | | | Diastolic Dimension: 4.42 cm | | | Septum Diastolic: 1.12 cm | | | PW Diastolic: 1.06 cm | | | | | | LVOT Diameter: 2.3 cm | | | | | | Left Ventricle Findings | | | Left ventricle is normal in size and function. Ejection fraction is | | | estimated at 60%. | | | | | | Right Atrium | | | | | | Right Atrium Findings | | | Normal right atrial size. | | | | | | Right Ventricle | | | | | | Right Ventricle Findings | | | Normal right ventricular size. | | | Right ventricle global systolic function is normal. | | | | | |Miscellaneous | | |Aorta | | | | | | Aortic Root: 2.38 cm Aortic Arch: 2.76 cm | | | Ascending Aorta: 3.16 cm Descending Aorta: 2.34 cm | | | LVOT Diameter: 2.3 cm | | | | | |Pulmonary Artery | | | | | | Right PA: 2.23 cm | | | | | |Pulmonary Vein: | | | | | | S Velocity: 53.54 cm/s A Reversal Velocity: 21.04 cm/s | | | D Velocity: 45.56 cm/s A Reversal Duration: 143 msec | | | | | |Miscellaneous Findings | | |Measurements and calculations provided in the report sections maybe | | |incomplete. Additional m-mode, 2D, Doppler, Doppler tissue, strain, and | | |other hemodynamic assessments performed and documented within the image | | |viewer. | | | | | | Pericardium | | | | | | Pericardial Effusion Findings | | | No evidence of pericardial effusion. | | | | | | Pleura | | | | | | Pleural Effusion Findings | | | No evidence of pleural effusion. | | | | | |Valves | | | | | | Mitral Valve | | | | | | Peak E-Wave: 69.33 cm/s Peak A-Wave: 40.87 cm/s | | | P1/2t: 51.1 msec E/A Ratio: 1.7 | | | Deceleration Time: 190.1 msec | | | Area (PHT): 4.31 cm^2 | | | | | | Tissue Doppler | | | | | | E' Lateral Velocity: 14.49 cm/s | | | | | | Mitral Valve Findings | | | Structurally normal mitral valve without significant stenosis or | | | regurgitation. | | | | | | Aortic Valve | | | | | | Area (2D): 3.99 cm^2 | | | | | | Aortic Valve Findings | | | Aortic valve and LVOT are structurally normal. Normal aortic valve flow | | | by color and Doppler imaging. No aortic valve regurgitation. | | | | | | Tricuspid Valve | | | | | | Tricuspid Valve Findings | | | Structurally normal tricuspid valve without significant stenosis but | | | trace regurgitation. | | | | | | Pulmonic Valve | | | | | | Pulmonic Valve Findings | | | Normal pulmonic valve structure and function. Trace PI | | | | | | LVOT | | | | | | LVOT Diameter: 2.3 cm | | | | | + + + + + | Procedure Note | + + | Aidan, [id number] - 02/19/2020 12:56 PM PDT Transesophageal Echocardiography Report (JOHN) | | | | Demographics | | | | Patient Name NILSA JAMA Room Number 9115 | | JR. 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 | | | | Procedure Date | | Date: 02/14/2020 Start: 06:47 AM | | | | Conclusions | | | | Summary | | Significant mobile plaque in the arch and descending aorta. | | Post CABG, no change in [place] valvular function or new segmental wall | | motion abnormalities. | | | | Signature | | | | | | | | | | | | Structures | | | | Left Atrium | | | | LA Systolic Pressure: 7.98 mmHg | | | | Left Atrium Findings | | Normal size left atrium. | | | | Left Ventricle | | | | Diastolic Dimension: 4.42 cm | | Septum Diastolic: 1.12 cm | | PW Diastolic: 1.06 cm | | | | LVOT Diameter: 2.3 cm | | | | Left Ventricle Findings | | Left ventricle is normal in size and function. Ejection fraction is | | estimated at 60%. | | | | Right Atrium | | | | Right Atrium Findings | | Normal right atrial size. | | | | Right Ventricle | | | | Right Ventricle Findings | | Normal right ventricular size. | | Right ventricle global systolic function is normal. | | | | Miscellaneous | | Aorta | | | | Aortic Root: 2.38 cm Aortic Arch: 2.76 cm | | Ascending Aorta: 3.16 cm Descending Aorta: 2.34 cm | | LVOT Diameter: 2.3 cm | | | | Pulmonary Artery | | | | Right PA: 2.23 cm | | | | Pulmonary Vein: | | | | S Velocity: 53.54 cm/s A Reversal Velocity: 21.04 cm/s | | D Velocity: 45.56 cm/s A Reversal Duration: 143 msec | | | | Miscellaneous Findings | | Measurements and calculations provided in the report sections maybe | | incomplete. Additional m-mode, 2D, Doppler, Doppler tissue, strain, and | | other hemodynamic assessments performed and documented within the image | | viewer. | | | | Pericardium | | | | Pericardial Effusion Findings | | No evidence of pericardial effusion. | | | | Pleura | | | | Pleural Effusion Findings | | No evidence of pleural effusion. | | | | Valves | | | | Mitral Valve | | | | Peak E-Wave: 69.33 cm/s Peak A-Wave: 40.87 cm/s | | P1/2t: 51.1 msec E/A Ratio: 1.7 | | Deceleration Time: 190.1 msec | | Area (PHT): 4.31 cm^2 | | | | Tissue Doppler | | | | E' Lateral Velocity: 14.49 cm/s | | | | Mitral Valve Findings | | Structurally normal mitral valve without significant stenosis or | | regurgitation. | | | | Aortic Valve | | | | Area (2D): 3.99 cm^2 | | | | Aortic Valve Findings | | Aortic valve and LVOT are structurally normal. Normal aortic valve flow | | by color and Doppler imaging. No aortic valve regurgitation. | | | | Tricuspid Valve | | | | Tricuspid Valve Findings | | Structurally normal tricuspid valve without significant stenosis but | | trace regurgitation. | | | | Pulmonic Valve | | | | Pulmonic Valve Findings | | Normal pulmonic valve structure and function. Trace PI | | | | LVOT | | | | LVOT Diameter: 2.3 cm | + + + +---------+ + + | Performing | Address | City/State/Zipcode | Phone Number | | Organization | | | | + +---------+ + + | [facility] | | | | + +---------+ + + POC CG 4, ISTAT Arterial (02/14/2020 12:18 PM PDT) + + + + + + | Component | Value | Ref Range | Performed | Pathologist | | | | | At | Signature | + + + + + + | pH, | 7.299 (L)Comment: This | 7.350 - 7.450 | [facility] | | | Arterial, | test was developed and | | LABORATORY | | | POC | its performance | | | | | | characteristics | | | | | | determined by[facility], it | | | | | | has not been cleared or | | | | | | approved by the [place] FDA. | | | | | | Clinicians should | | | | | | beadvised to consider a | | | | | | patient's signs, | | | | | | symptoms, history, and | | | | | | results of | | | | | | otherdiagnostic tests | | | | | | when interpreting | | | | | | results from these | | | | | | cartridges. | | | | + + + + + + | pCO2, | 53 (H) | 35 - 45 mmHg | [facility] | | | Arterial | | | LABORATORY | | + + + + + + | pO2, | 385 (HH) | 80 - 105 mmHg | [facility] | | | Arterial | | | LABORATORY | | + + + + + + | Lactate, | 1.84 (H) | 0.36 - 1.25 | [facility] | | | Arterial, | | mmol/L | LABORATORY | | | POC | | | | | + + + + + + | HCO3, | 26 | 22 - 26 mmol/L | [facility] | | | Arterial | | | LABORATORY | | + + + + + + | TCO2, | 28 (H) | 23 - 27 mEq/L | [facility] | | | Arterial, | | | LABORATORY | | | POC | | | | | + + + + + + | POC Base | 1 | 0.0 - 2.0 | [facility] | | | Deficit | | mmol/L | LABORATORY | | | mmol/L | | | | | + + + + + + | SO2, | 100 (H)Comment: Testing | 95 - 98 % | [facility] | | | Arterial, | performed at [facility] [place] | | LABORATORY | | | POC | [address];[place] | | | | | | [address] | | | | + + + + + + + + | Specimen | + + | | + + + + + + + | Performing | Address | City/State/Zipcode | Phone Number | | Organization | | | | + + + + + | [facility] | [address] | [place] [address] | [phone] | + + + + + Product: Platelet Pheresis, Leukoreduced (02/14/2020 12:05 PM PDT) + + + + + + | Component | Value | Ref Range | Performed | Pathologist | | | | | At | Signature | + + + + + + | Product | PLATELET GROUP | | [facility] | | | Code | | | LABORATORY | | + + + + + + | Units | 2 | | [facility] | | | ordered | | | LABORATORY | | + + + + + + | BLOOD BANK | ORDER RECEIVED IN BLOOD | | [facility] | | | COMMENT | BANK. | | LABORATORY | | + + + + + + | UNIT # | [id number] | | [facility] | | | | | | LABORATORY | | + + + + + + | Product | PAS WILLIAN PLATELET,IRR A | | [facility] | | | Code | | | LABORATORY | | + + + + + + | Unit | 00 | | [facility] | | | Division | | | LABORATORY | | + + + + + + | Unit Status | ISSUED,FINAL | | [facility] | | | | | | LABORATORY | | + + + + + + | Transfusion | OK TO TRANSFUSETesting | | [facility] | | | Status | performed at [facility] [place] | | LABORATORY | | | | [address];[place] | | | | | | [address] | | | | + + + + + + | UNIT # | [id number] | | [facility] | | | | | | LABORATORY | | + + + + + + | Product | PAS LR PLATELET,IRR B | | [facility] | | | Code | | | LABORATORY | | + + + + + + | Unit | 00 | | [facility] | | | Division | | | LABORATORY | | + + + + + + | Unit Status | ISSUED,FINAL | | [facility] | | | | | | LABORATORY | | + + + + + + | Transfusion | OK TO TRANSFUSE | | [facility] | | | Status | | | LABORATORY | | + + + + + + + + | Specimen | + + | | + + + + + + + | Performing | Address | City/State/Zipcode | Phone Number | | Organization | | | | + + + + + | [facility] | [address] | [place] [address] | [phone] | + + + + + POC CG 4, ISTAT Arterial (02/14/2020 11:53 AM PDT) + + + + + + | Component | Value | Ref Range | Performed | Pathologist | | | | | At | Signature | + + + + + + | pH, | 7.192 (LL)Comment: This | 7.350 - 7.450 | [facility] | | | Arterial, | test was developed and | | LABORATORY | | | POC | its performance | | | | | | characteristics | | | | | | determined by[facility], it | | | | | | has not been cleared or | | | | | | approved by the [place] FDA. | | | | | | Clinicians should | | | | | | beadvised to consider a | | | | | | patient's signs, | | | | | | symptoms, history, and | | | | | | results of | | | | | | otherdiagnostic tests | | | | | | when interpreting | | | | | | results from these | | | | | | cartridges. | | | | + + + + + + | pCO2, | 69 (HH) | 35 - 45 mmHg | [facility] | | | Arterial | | | LABORATORY | | + + + + + + | pO2, | 380 (HH) | 80 - 105 mmHg | [facility] | | | Arterial | | | LABORATORY | | + + + + + + | Lactate, | 1.94 (H) | 0.36 - 1.25 | [facility] | | | Arterial, | | mmol/L | LABORATORY | | | POC | | | | | + + + + + + | HCO3, | 27 (H) | 22 - 26 mmol/L | [facility] | | | Arterial | | | LABORATORY | | + + + + + + | TCO2, | 29 (H) | 23 - 27 mEq/L | [facility] | | | Arterial, | | | LABORATORY | | | POC | | | | | + + + + + + | POC Base | 2 | 0.0 - 2.0 | [facility] | | | Deficit | | mmol/L | LABORATORY | | | mmol/L | | | | | + + + + + + | SO2, | 100 (H)Comment: Testing | 95 - 98 % | [facility] | | | Arterial, | performed at [facility] [place] | | LABORATORY | | | POC | [address]oul [address];[place] | | | | | | [id number] | | | | + + + + + + + + | Specimen | + + | | + + + + + + + | Performing | Address | City/State/Zipcode | Phone Number | | Organization | | | | + + + + + | [facility] | [address] | [place] [address] | [phone] | + + + + + POC KENY CG8, Arterial (02/14/2020 11:48 AM PDT) + + + + + + | Component | Value | Ref Range | Performed | Pathologist | | | | | At | Signature | + + + + + + | pH, | 7.186 (LL) | 7.350 - 7.450 | [facility] | | | Arterial, | | | LABORATORY | | | POC | | | | | + + + + + + | pCO2, | 67 (HH) | 35 - 45 mmHg | [facility] | | | Arterial | | | LABORATORY | | + + + + + + | pO2, | 406 (HH) | 80 - 105 mmHg | [facility] | | | Arterial | | | LABORATORY | | + + + + + + | HCO3, | 25 | 22 - 26 mmol/L | [facility] | | | Arterial | | | LABORATORY | | + + + + + + | TCO2, | 27 | 23 - 27 mEq/L | [facility] | | | Arterial, | | | LABORATORY | | | POC | | | | | + + + + + + | POC Base | 3 (H) | 0.0 - 2.0 | [facility] | | | Deficit | | mmol/L | LABORATORY | | | mmol/L | | | | | + + + + + + | SO2, | 100 (H) | 95 - 98 % | [facility] | | | Arterial, | | | LABORATORY | | | POC | | | | | + + + + + + | Sodium, POC | 139 | 135 - 145 mEq/L | [facility] | | | | | | LABORATORY | | + + + + + + | Potassium, | 4.3 | 3.5 - 5.0 mEq/L | [facility] | | | POC | | | LABORATORY | | + + + + + + | Ionized | 1.23 | 1.12 - 1.32 | [facility] | | | Calcium, | | mmol/L | LABORATORY | | | POC | | | | | + + + + + + | Glucose, | 174 (H) | 65 - 99 mg/dL | [facility] | | | POC | | | LABORATORY | | + + + + + + | Hematocrit, | 27 (L) | 40.0 - 50.0 % | [facility] | | | POC | | | LABORATORY | | + + + + + + | Hemoglobin, | 9.2 (L)Comment: Testing | 13.7 - 16.7 | [facility] | | | POC | performed at [facility] [place] | g/dL | LABORATORY | | | | [address];[place], [place] | | | | | | [address] | | | | + + + + + + + + | Specimen | + + | | + + + + + + + | Performing | Address | City/State/Zipcode | Phone Number | | Organization | | | | + + + + + | [facility] | [address] | [place] [address] | [phone] | + + + + + POC SATISH BUSTILLO Arterial (02/14/2020 11:03 AM PDT) + + + + + + | Component | Value | Ref Range | Performed | Pathologist | | | | | At | Signature | + + + + + + | pH, | 7.390 | 7.350 - 7.450 | [facility] | | | Arterial, | | | LABORATORY | | | POC | | | | | + + + + + + | pCO2, | 40 | 35 - 45 mmHg | [facility] | | | Arterial | | | LABORATORY | | + + + + + + | pO2, | 262 (HH) | 80 - 105 mmHg | [facility] | | | Arterial | | | LABORATORY | | + + + + + + | HCO3, | 24 | 22 - 26 mmol/L | [facility] | | | Arterial | | | LABORATORY | | + + + + + + | TCO2, | 25 | 23 - 27 mEq/L | [facility] | | | Arterial, | | | LABORATORY | | | POC | | | | | + + + + + + | POC Base | 1 | 0.0 - 2.0 | [facility] | | | Deficit | | mmol/L | LABORATORY | | | mmol/L | | | | | + + + + + + | SO2, | 100 (H) | 95 - 98 % | [facility] | | | Arterial, | | | LABORATORY | | | POC | | | | | + + + + + + | Sodium, POC | 138 | 135 - 145 mEq/L | [facility] | | | | | | LABORATORY | | + + + + + + | Potassium, | 5.1 (H) | 3.5 - 5.0 mEq/L | [facility] | | | POC | | | LABORATORY | | + + + + + + | Ionized | 1.09 (L) | 1.12 - 1.32 | [facility] | | | Calcium, | | mmol/L | LABORATORY | | | POC | | | | | + + + + + + | Glucose, | 160 (H) | 65 - 99 mg/dL | [facility] | | | POC | | | LABORATORY | | + + + + + + | Hematocrit, | 26 (L) | 40.0 - 50.0 % | [facility] | | | POC | | | LABORATORY | | + + + + + + | Hemoglobin, | 8.8 (L)Comment: Testing | 13.7 - 16.7 | [facility] | | | POC | performed at [facility] [place] | g/dL | LABORATORY | | | | [address];[place], [place] | | | | | | [address] | | | | + + + + + + + + | Specimen | + + | | + + + + + + + | Performing | Address | City/State/Zipcode | Phone Number | | Organization | | | | + + + + + | [facility] | [address] | [place] [address] | [phone] | + + + + + POC CG 4, ISTAT Arterial (02/14/2020 10:31 AM PDT) + + + + + + | Component | Value | Ref Range | Performed | Pathologist | | | | | At | Signature | + + + + + + | pH, | 7.344 (L)Comment: This | 7.350 - 7.450 | [facility] | | | Arterial, | test was developed and | | LABORATORY | | | POC | its performance | | | | | | characteristics | | | | | | determined by[facility], it | | | | | | has not been cleared or | | | | | | approved by the [place] FDA. | | | | | | Clinicians should | | | | | | beadvised to consider a | | | | | | patient's signs, | | | | | | symptoms, history, and | | | | | | results of | | | | | | otherdiagnostic tests | | | | | | when interpreting | | | | | | results from these | | | | | | cartridges. | | | | + + + + + + | pCO2, | 49 (H) | 35 - 45 mmHg | [facility] | | | Arterial | | | LABORATORY | | + + + + + + | pO2, | 295 (HH) | 80 - 105 mmHg | [facility] | | | Arterial | | | LABORATORY | | + + + + + + | Lactate, | 1.75 (H) | 0.36 - 1.25 | [facility] | | | Arterial, | | mmol/L | LABORATORY | | | POC | | | | | + + + + + + | HCO3, | 27 (H) | 22 - 26 mmol/L | [facility] | | | Arterial | | | LABORATORY | | + + + + + + | TCO2, | 28 (H) | 23 - 27 mEq/L | [facility] | | | Arterial, | | | LABORATORY | | | POC | | | | | + + + + + + | Base | 1 | 0 - 3 mEq/L | [facility] | | | Excess, POC | | | LABORATORY | | + + + + + + | SO2, | 100 (H)Comment: Testing | 95 - 98 % | [facility] | | | Arterial, | performed at [facility] [place] | | LABORATORY | | | POC | [address];[place], [place] | | | | | | [address] | | | | + + + + + + + + | Specimen | + + | | + + + + + + + | Performing | Address | City/State/Zipcode | Phone Number | | Organization | | | | + + + + + | [facility] | [address] | [place] [address] | [phone] | + + + + + POC ISTAT, CG8, Arterial (02/14/2020 10:28 AM PDT) + + + + + + | Component | Value | Ref Range | Performed | Pathologist | | | | | At | Signature | + + + + + + | pH, | 7.318 (L) | 7.350 - 7.450 | [facility] | | | Arterial, | | | LABORATORY | | | POC | | | | | + + + + + + | pCO2, | 51 (H) | 35 - 45 mmHg | [facility] | | | Arterial | | | LABORATORY | | + + + + + + | pO2, | 315 (HH) | 80 - 105 mmHg | [facility] | | | Arterial | | | LABORATORY | | + + + + + + | HCO3, | 26 | 22 - 26 mmol/L | [facility] | | | Arterial | | | LABORATORY | | + + + + + + | TCO2, | 28 (H) | 23 - 27 mEq/L | [facility] | | | Arterial, | | | LABORATORY | | | POC | | | | | + + + + + + | Base | 0 | 0 - 3 mEq/L | [facility] | | | Excess, POC | | | LABORATORY | | + + + + + + | SO2, | 100 (H) | 95 - 98 % | [facility] | | | Arterial, | | | LABORATORY | | | POC | | | | | + + + + + + | Sodium, POC | 137 | 135 - 145 mEq/L | [facility] | | | | | | LABORATORY | | + + + + + + | Potassium, | 5.0 | 3.5 - 5.0 mEq/L | [facility] | | | POC | | | LABORATORY | | + + + + + + | Ionized | 1.10 (L) | 1.12 - 1.32 | [facility] | | | Calcium, | | mmol/L | LABORATORY | | | POC | | | | | + + + + + + | Glucose, | 143 (H) | 65 - 99 mg/dL | [facility] | | | POC | | | LABORATORY | | + + + + + + | Hematocrit, | 26 (L) | 40.0 - 50.0 % | [facility] | | | POC | | | LABORATORY | | + + + + + + | Hemoglobin, | 8.8 (L)Comment: Testing | 13.7 - 16.7 | [facility] | | | POC | performed at [facility] [place] | g/dL | LABORATORY | | | | [address];[place] | | | | | | [address] | | | | + + + + + + + + | Specimen | + + | | + + + + + + + | Performing | Address | City/State/Zipcode | Phone Number | | Organization | | | | + + + + + | [facility] | [address] | [place] [address] | [phone] | + + + + + POC SATISH BUSTILLO Venous (02/14/2020 10:09 AM PDT) + + + + + + | Component | Value | Ref Range | Performed | Pathologist | | | | | At | Signature | + + + + + + | pH, Venous, | 7.195 (L) | 7.310 - 7.410 | [facility] | | | POC | | | LABORATORY | | + + + + + + | PCO2, | 71 (H) | 41 - 51 mmHG | [facility] | | | Venous, POC | | | LABORATORY | | + + + + + + | pO2, Venous | 56 (H) | 30 - 40 mmHG | [facility] | | | | | | LABORATORY | | + + + + + + | HCO3, | 28 | 23 - 28 mmol/L | [facility] | | | Venous | | | LABORATORY | | + + + + + + | TCO2, POC | 30 (H) | 24 - 29 mEq/L | [facility] | | | | | | LABORATORY | | + + + + + + | POC Base | 1 | 0.0 - 2.0 | [facility] | | | Deficit | | mmol/L | LABORATORY | | | mmol/L | | | | | + + + + + + | POC | 80.0 | 60 - 85 % | [facility] | | | SO2.BLDV.QN | | | LABORATORY | | | .(%) | | | | | + + + + + + | Sodium, POC | 137 | 135 - 145 mEq/L | [facility] | | | | | | LABORATORY | | + + + + + + | Potassium, | 3.8 | 3.5 - 5.0 mEq/L | [facility] | | | POC | | | LABORATORY | | + + + + + + | Ionized | 1.08 (L) | 1.12 - 1.32 | [facility] | | | Calcium, | | mmol/L | LABORATORY | | | POC | | | | | + + + + + + | Glucose, | 145 (H) | 65 - 99 mg/dL | [facility] | | | POC | | | LABORATORY | | + + + + + + | Hematocrit, | 30 (L) | 40.0 - 50.0 % | [facility] | | | POC | | | LABORATORY | | + + + + + + | Hemoglobin, | 10.2 (L)Comment: Testing | 13.7 - 16.7 | [facility] | | | POC | performed at [facility] [place] | g/dL | LABORATORY | | | | [address];[place], [place] | | | | | | [address] | | | | + + + + + + + + | Specimen | + + | | + + + + + + + | Performing | Address | City/State/Zipcode | Phone Number | | Organization | | | | + + + + + | [facility] | [address] | [place] [address] | [phone] | + + + + + POC KENY CG8, Arterial (02/14/2020 10:03 AM PDT) + + + + + + | Component | Value | Ref Range | Performed | Pathologist | | | | | At | Signature | + + + + + + | pH, | 7.233 (LL) | 7.350 - 7.450 | [facility] | | | Arterial, | | | LABORATORY | | | POC | | | | | + + + + + + | pCO2, | 68 (HH) | 35 - 45 mmHg | [facility] | | | Arterial | | | LABORATORY | | + + + + + + | pO2, | 311 (HH) | 80 - 105 mmHg | [facility] | | | Arterial | | | LABORATORY | | + + + + + + | HCO3, | 29 (H) | 22 - 26 mmol/L | [facility] | | | Arterial | | | LABORATORY | | + + + + + + | TCO2, | 31 (H) | 23 - 27 mEq/L | [facility] | | | Arterial, | | | LABORATORY | | | POC | | | | | + + + + + + | Base | 1 | 0 - 3 mEq/L | [facility] | | | Excess, POC | | | LABORATORY | | + + + + + + | SO2, | 100 (H) | 95 - 98 % | [facility] | | | Arterial, | | | LABORATORY | | | POC | | | | | + + + + + + | Sodium, POC | 136 | 135 - 145 mEq/L | [facility] | | | | | | LABORATORY | | + + + + + + | Potassium, | 4.0 | 3.5 - 5.0 mEq/L | [facility] | | | POC | | | LABORATORY | | + + + + + + | Ionized | 1.04 (L) | 1.12 - 1.32 | [facility] | | | Calcium, | | mmol/L | LABORATORY | | | POC | | | | | + + + + + + | Glucose, | 147 (H) | 65 - 99 mg/dL | [facility] | | | POC | | | LABORATORY | | + + + + + + | Hematocrit, | 29 (L) | 40.0 - 50.0 % | [facility] | | | POC | | | LABORATORY | | + + + + + + | Hemoglobin, | 9.9 (L)Comment: Testing | 13.7 - 16.7 | [facility] | | | POC | performed at [facility] [place] | g/dL | LABORATORY | | | | [address];[place], [place] | | | | | | [address] | | | | + + + + + + + + | Specimen | + + | | + + + + + + + | Performing | Address | City/State/Zipcode | Phone Number | | Organization | | | | + + + + + | [facility] | [address] | [place] [address] | [phone] | + + + + + POC ISTAT, CG8, Arterial (02/14/2020 9:25 AM PDT) + + + + + + | Component | Value | Ref Range | Performed | Pathologist | | | | | At | Signature | + + + + + + | pH, | 7.036 (LL) | 7.350 - 7.450 | [facility] | | | Arterial, | | | LABORATORY | | | POC | | | | | + + + + + + | pCO2, | 103 (HH) | 35 - 45 mmHg | [facility] | | | Arterial | | | LABORATORY | | + + + + + + | pO2, | 564 (HH) | 80 - 105 mmHg | [facility] | | | Arterial | | | LABORATORY | | + + + + + + | HCO3, | 28 (H) | 22 - 26 mmol/L | [facility] | | | Arterial | | | LABORATORY | | + + + + + + | TCO2, | 31 (H) | 23 - 27 mEq/L | [facility] | | | Arterial, | | | LABORATORY | | | POC | | | | | + + + + + + | POC Base | 3 (H) | 0.0 - 2.0 | [facility] | | | Deficit | | mmol/L | LABORATORY | | | mmol/L | | | | | + + + + + + | SO2, | 100 (H) | 95 - 98 % | [facility] | | | Arterial, | | | LABORATORY | | | POC | | | | | + + + + + + | Sodium, POC | 137 | 135 - 145 mEq/L | [facility] | | | | | | LABORATORY | | + + + + + + | Potassium, | 4.4 | 3.5 - 5.0 mEq/L | [facility] | | | POC | | | LABORATORY | | + + + + + + | Ionized | 1.28 | 1.12 - 1.32 | [facility] | | | Calcium, | | mmol/L | LABORATORY | | | POC | | | | | + + + + + + | Glucose, | 193 (H) | 65 - 99 mg/dL | [facility] | | | POC | | | LABORATORY | | + + + + + + | Hematocrit, | 40 | 40.0 - 50.0 % | [facility] | | | POC | | | LABORATORY | | + + + + + + | Hemoglobin, | 13.6 (L)Comment: Testing | 13.7 - 16.7 | [facility] | | | POC | performed at [facility] [place] | g/dL | LABORATORY | | | | [address];[place], [place] | | | | | | [address] | | | | + + + + + + + + | Specimen | + + | | + + + + + + + | Performing | Address | City/State/Zipcode | Phone Number | | Organization | | | | + + + + + | [facility] | [address] | [place] [address] | [phone] | + + + + + POC ISTAT, CG8, Arterial (02/14/2020 7:54 AM PDT) + + + + + + | Component | Value | Ref Range | Performed | Pathologist | | | | | At | Signature | + + + + + + | pH, | 7.296 (L) | 7.350 - 7.450 | [facility] | | | Arterial, | | | LABORATORY | | | POC | | | | | + + + + + + | pCO2, | 55 (H) | 35 - 45 mmHg | [facility] | | | Arterial | | | LABORATORY | | + + + + + + | pO2, | 418 (HH) | 80 - 105 mmHg | [facility] | | | Arterial | | | LABORATORY | | + + + + + + | HCO3, | 27 (H) | 22 - 26 mmol/L | [facility] | | | Arterial | | | LABORATORY | | + + + + + + | TCO2, | 28 (H) | 23 - 27 mEq/L | [facility] | | | Arterial, | | | LABORATORY | | | POC | | | | | + + + + + + | Base | 0 | 0 - 3 mEq/L | [facility] | | | Excess, POC | | | LABORATORY | | + + + + + + | SO2, | 100 (H) | 95 - 98 % | [facility] | | | Arterial, | | | LABORATORY | | | POC | | | | | + + + + + + | Sodium, POC | 138 | 135 - 145 mEq/L | [facility] | | | | | | LABORATORY | | + + + + + + | Potassium, | 4.4 | 3.5 - 5.0 mEq/L | [facility] | | | POC | | | LABORATORY | | + + + + + + | Ionized | 1.30 | 1.12 - 1.32 | [facility] | | | Calcium, | | mmol/L | LABORATORY | | | POC | | | | | + + + + + + | Glucose, | 192 (H) | 65 - 99 mg/dL | [facility] | | | POC | | | LABORATORY | | + + + + + + | Hematocrit, | 44 | 40.0 - 50.0 % | [facility] | | | POC | | | LABORATORY | | + + + + + + | Hemoglobin, | 15.0Comment: Testing | 13.7 - 16.7 | [facility] | | | POC | performed at [facility] [place] | g/[place] | LABORATORY | | | | [address];[place] | | | | | | [id number] | | | | + + + + + + + + | Specimen | + + | | + + + + + + + | Performing | Address | City/State/Zipcode | Phone Number | | Organization | | | | + + + + + | [facility] | [address] | [place] [address] | [phone] | + + + + + Red Blood Cells (RBC) - Crossmatch and Hold (02/14/2020 7:04 AM PDT) + + + + + + | Component | Value | Ref Range | Performed | Pathologist | | | | | At | Signature | + + + + + + | Product | [employer] | | [facility] | | | Code | | | LABORATORY | | + + + + + + | Units | 4 | | [facility] | | | ordered | | | LABORATORY | | + + + + + + | BLOOD BANK | ORDER RECEIVED IN BLOOD | | [facility] | | | COMMENT | BANK. | | LABORATORY | | + + + + + + | BLOOD BANK | Testing performed at | | [facility] | | | COMMENT | [facility] [place] | | LABORATORY | | | | [place] [id number] | | | | + + + + + + + + | Specimen | + + | | + + + + + + + | Performing | Address | City/State/Zipcode | Phone Number | | Organization | | | | + + + + + | [facility] | [address] | [place] [address] | [phone] | + + + + + Type and Screen (02/14/2020 7:04 AM PDT) + + + + + + | Component | Value | Ref Range | Performed | Pathologist | | | | | At | Signature | + + + + + + | ABO Rh | A POSITIVE | | [facility] | | | | | | LABORATORY | | + + + + + + | Antibody | NEGATIVE | | [facility] | | | Screen | | | LABORATORY | | + + + + + + | BB BAND | [id number] | | [facility] | | | | | | LABORATORY | | + + + + + + | UNIT # | [id number] | | [facility] | | | | | | LABORATORY | | + + + + + + | Product | [employer] | | [facility] | | | Code | | | LABORATORY | | + + + + + + | Unit | 00 | | [facility] | | | Division | | | LABORATORY | | + + + + + + | Unit Status | REL FROM ALLOC | | [facility] | | | | | | LABORATORY | | + + + + + + | Transfusion | OK TO TRANSFUSE | | [facility] | | | Status | | | LABORATORY | | + + + + + + | CROSSMATCH | COMPATIBLE | | [facility] | | | RESULT | | | LABORATORY | | + + + + + + | UNIT # | [id number] | | [facility] | | | | | | LABORATORY | | + + + + + + | Product | [employer] | | [facility] | | | Code | | | LABORATORY | | + + + + + + | Unit | 00 | | [facility] | | | Division | | | LABORATORY | | + + + + + + | Unit Status | REL FROM ALLOC | | [facility] | | | | | | LABORATORY | | + + + + + + | Transfusion | OK TO TRANSFUSE | | [facility] | | | Status | | | LABORATORY | | + + + + + + | CROSSMATCH | COMPATIBLETesting | | [facility] | | | RESULT | performed at [facility] [place] | | LABORATORY | | | | [address];[place], [place] | | | | | | [id number] | | | | + + + + + + | UNIT # | [id number] | | [facility] | | | | | | LABORATORY | | + + + + + + | Product | LEUKODEPLETED PC | | [facility] | | | Code | | | LABORATORY | | + + + + + + | Unit | 00 | | [facility] | | | Division | | | LABORATORY | | + + + + + + | Unit Status | REL FROM ALLOC | | [facility] | | | | | | LABORATORY | | + + + + + + | Transfusion | OK TO TRANSFUSE | | [facility] | | | Status | | | LABORATORY | | + + + + + + | CROSSMATCH | COMPATIBLE | | [facility] | | | RESULT | | | LABORATORY | | + + + + + + | UNIT # | [id number] | | [facility] | | | | | | LABORATORY | | + + + + + + | Product | LEUKODEPLETED PC | | [facility] | | | Code | | | LABORATORY | | + + + + + + | Unit | 00 | | [facility] | | | Division | | | LABORATORY | | + + + + + + | Unit Status | REL FROM ALLOC | | [facility] | | | | | | LABORATORY | | + + + + + + | Transfusion | OK TO TRANSFUSE | | [facility] | | | Status | | | LABORATORY | | + + + + + + | CROSSMATCH | COMPATIBLE | | [facility] | | | RESULT | | | LABORATORY | | + + + + + + + + | Specimen | + + | Blood | + + + + + + + | Performing | Address | City/State/Zipcode | Phone Number | | Organization | | | | + + + + + | [facility] | [address] | [place] [address] | [phone] | + + + + + CBC no Differential (02/14/2020 7:04 AM PDT) + + + + + + | Component | Value | Ref Range | Performed | Pathologist | | | | | At | Signature | + + + + + + | WBC | 9.46 | 3.80 - 11.00 | [facility] | | | | | K/uL | LABORATORY | | + + + + + + | Red Blood | 5.08 | 4.20 - 5.70 | [facility] | | | Cells | | M/uL | LABORATORY | | + + + + + + | Hemoglobin | 15.0 | 13.2 - 17.0 | [facility] | | | | | g/dL | LABORATORY | | + + + + + + | Hematocrit | 46.7 | 39.0 - 50.0 % | [facility] | | | | | | LABORATORY | | + + + + + + | MCV | 91.9 | 80.0 - 100.0 fl | [facility] | | | | | | LABORATORY | | + + + + + + | MCH | 29.5 | 27.0 - 34.0 pg | [facility] | | | | | | LABORATORY | | + + + + + + | MCHC | 32.1 | 32.0 - 35.5 | [facility] | | | | | g/dL | LABORATORY | | + + + + + + | RDW-SD | 46.6 | 37 - 53 fl | [facility] | | | | | | LABORATORY | | + + + + + + | Platelet | 278 | 150 - 400 K/uL | [facility] | | | Count | | | LABORATORY | | + + + + + + | MPV | 10.4Comment: NO NORMAL | fl | [facility] | | | | RANGE ESTABLISHEDTesting | | LABORATORY | | | | performed at [facility] [place] | | | | | | [address];[place] | | | | | | [id number] | | | | + + + + + + + + | Specimen | + + | Blood | + + + + + + + | Performing | Address | City/State/Zipcode | Phone Number | | Organization | | | | + + + + + | [facility] | [address] | [place] [address] | [phone] | + + + + + Basic Metabolic Panel (02/14/2020 7:04 AM PDT) + + + + + + | Component | Value | Ref Range | Performed | Pathologist | | | | | At | Signature | + + + + + + | Na | 138 | 135 - 145 | [facility] | | | | | mmol/L | LABORATORY | | + + + + + + | K | 4.1 | 3.5 - 4.9 | [facility] | | | | | mmol/L | LABORATORY | | + + + + + + | Cl | 106 | 99 - 109 mmol/L | [facility] | | | | | | LABORATORY | | + + + + + + | CO2 | 29 | 23 - 32 mmol/L | [facility] | | | | | | LABORATORY | | + + + + + + | Anion Gap | 7 | 5 - 20 mmol/L | [facility] | | | | | | LABORATORY | | + + + + + + | Glucose | 186 (H) | 65 - 99 mg/dL | [facility] | | | | | | LABORATORY | | + + + + + + | BUN | 13 | 8 - 25 mg/dL | [facility] | | | | | | LABORATORY | | + + + + + + | Creatinine | 1.03 | 0.70 - 1.30 | [facility] | | | | | mg/dL | LABORATORY | | + + + + + + | BUN/Creatin | 13 | | [facility] | | | ine Ratio | | | LABORATORY | | + + + + + + | Calcium | 9.6 | 8.5 - 10.5 | [facility] | | | | | mg/dL | LABORATORY | | + + + + + + | Estimated | >60Comment: GFR <60: | >60 | [facility] | | | GFR | CHRONIC KIDNEY DISEASE, | mL/min/1.73m2 | LABORATORY | | | | IF FOUND OVER A 3 MONTH | | | | | | PERIOD.GFR <15: KIDNEY | | | | | | FAILURE.FOR | | | | | | AMERICANS, MULTIPLY THE | | | | | | CALCULATED GFR BY | | | | | | 1.210.This eGFR is | | | | | | calculated using the | | | | | | MDRD IDMS traceable | | | | | | equation.Testing | | | | | | performed at [facility] [place] | | | | | | [facility];[place], [place] | | | | | | [id number] | | | | + + + + + + + + | Specimen | + + | Blood | + + + + + + + | Performing | Address | City/State/Zipcode | Phone Number | | Organization | | | | + + + + + | [facility] | [address] | [place] [address] | [phone] | + + + + + POC Glucose (02/14/2020 6:46 AM PDT) + + + + + + | Component | Value | Ref Range | Performed | Pathologist | | | | | At | Signature | + + + + + + | Glucose, | 167 (H)Comment: Testing | 65 - 99 mg/dL | [facility] | | | POC | performed at [facility] [place] | | LABORATORY | | | | [address];[place] | | | | | | [id number] | | | | + + + + + + + + | Specimen | + + | | + + + + + + + | Performing | Address | City/State/Zipcode | Phone Number | | Organization | | | | + + + + + | [facility] | [address] | [place] [address] | [phone] | + + + + + POC Coronavirus (COVID-19) NAAT (02/14/2020 6:30 AM PDT) + + + + + + | Component | Value | Ref Range | Performed | Pathologist | | | | | At | Signature | + + + + + + | POC SOURCE | [facility] | | | | + + + + + + | SARS | Negative | Negative | | | | coronavirus | | | | | | 2 RNA | | | | | | (POC) | | | | | + + + + + + | Internal QC | Acceptable | Acceptable | | | + + + + + + + + | Specimen | + + | Tissue - Entire | | nasopharynx (body | | structure) | + + + + + | Narrative | Performed At | + + + | SARS-CoV-2, RNA (COVID-19) EUA Negative results, using the | | | [employer] ID NOW Platform, should be treated as presumptive and, if | | | inconsistent with clinical signs and symptoms or necessary for patient | | | management, should be tested with an alternative molecular assay. | | | Please contact the laboratory for assistance as needed. Negative | | | results do not preclude COVID-19 infection and should not be used as | | | the sole basis for patient management decisions. Negative results | | | should be considered in the context of a patient's recent exposures, | | | history, presence of clinical signs and symptoms consistent with | | | COVID-19. This assay has been cleared for use under an FDA | | | Emergency Use Authorization. This test is used for clinical purposes. | | | It should not be regarded as investigational or for research. This | | | laboratory is certified under the Clinical Laboratory Improvement | | | Amendments (CLIA) as qualified to perform high complexity testing. | | | This test has been validated in accordance with the FDA's Guidance | | | Document "Policy for Diagnostics Testing in Laboratories Certified to | | | Perform High Complexity Testing under CLIA prior to Emergency Use | | | Authorization for Coronavirus Disease-2019 during the Public Health | | | Emergency" issued on July 22, 2019. FDA independent review of | | | this validation is pending. This test is only authorized for the | | | duration of time the declaration that circumstances exist justifying | | | the authorization of the emergency use of in vitro diagnostic tests | | | for detection of SARS-CoV-2 virus and/or diagnosis of COVID-19 | | | infection under section 564(b)(1) of the Act, 21 U.S.C. | | | 360bbb-3(b)(1), unless the authorization is terminated or revoked | | | sooner. | | + + + documented in this encounter Visit Diagnoses + + | Diagnosis | + + | CAD in [place] artery - Primary Coronary atherosclerosis of [place] coronary artery | + + | Coronary artery disease involving [place] coronary artery of [place] heart without | | angina pectoris | + + | Diabetes mellitus (HCC) Type II or unspecified type diabetes mellitus without mention | | of complication, not stated as uncontrolled | + + documented in this encounter Admitting Diagnoses + + | Diagnosis | + + | CAD in [place] artery Coronary atherosclerosis of [place] coronary artery | + + documented in this encounter Administered Medications + +--------+ + +------+------+ | Medication Order | MAR | Action | Dose | Rate | Site | | | Action | Date | | | | + +--------+ + +------+------+ | acetaminophen (TYLENOL) tablet | Given | 02/21/20 | 1,000 mg | | | | 1,000 mg 1,000 mg, Oral, EVERY 8 | | 20 5:31 | | | | | HOURS, First dose on Wed02/14/20 | | AM PDT | | | | | at 1400, Start 8 hours after | | | | | | | pre-op dose., | | | | | | + +--------+ + +------+------+ +-------+ + +---+---+ | Given | 02/20/20 | 1,000 mg | | | | | 20 9:12 | | | | | | PM PDT | | | | +-------+ + +---+---+ | Given | 02/20/20 | 1,000 mg | | | | | 20 1:59 | | | | | | PM PDT | | | | +-------+ + +---+---+ +---+---+ | | | +---+---+ + +---------+ +------+-------+---+ | albumin 5% IVPB 25 g 25 g, | New Bag | 02/15/20 | 25 g | 500 | | | Intravenous, Administer over 1 | | 20 7:53 | | mL/hr | | | Hours, PRN, see PRN parameter, | | AM PDT | | | | | Starting 02/14/20 at 1233, For | | | | | | | 3 doses, Give PRN SBP Less than: | | | | | | | 90, Post-op/Phase II, | | | | | | | Indications: Cardiac Surgery | | | | | | + +---------+ +------+-------+---+ +---------+ +------+-------+---+ | New Bag | 02/15/20 | 25 g | 500 | | | | 20 1:04 | | mL/hr | | | | AM PDT | | | | +---------+ +------+-------+---+ | New Bag | 02/14/20 | 25 g | 500 | | | | 20 5:57 | | mL/hr | | | | PM PDT | | | | +---------+ +------+-------+---+ +---+---+ | | | +---+---+ + +-------+ +-------+---+---+ | aspirin chewable tablet 81 mg | Given | 02/21/20 | 81 mg | | | | 81 mg, Oral, DAILY, First dose on | | 20 9:27 | | | | | Sue 02/15/20 at 0900 | | AM PDT | | | | + +-------+ +-------+---+---+ +-------+ +-------+---+---+ | Given | 02/20/20 | 81 mg | | | | | 20 8:04 | | | | | | AM PDT | | | | +-------+ +-------+---+---+ | Given | 02/19/20 | 81 mg | | | | | 20 8:36 | | | | | | AM PDT | | | | +-------+ +-------+---+---+ +---+---+ | | | +---+---+ + +-------+ +-------+---+---+ | atorvaSTATin (LIPITOR) tablet | Given | 02/20/20 | 80 mg | | | | 80 mg 80 mg, Oral, NIGHTLY, | | 20 9:12 | | | | | First dose on Wed02/14/20 at 2100 | | PM PDT | | | | + +-------+ +-------+---+---+ +-------+ +-------+---+---+ | Given | 02/19/20 | 80 mg | | | | | 20 8:54 | | | | | | PM PDT | | | | +-------+ +-------+---+---+ | Given | 02/18/20 | 80 mg | | | | | 20 8:58 | | | | | | PM PDT | | | | +-------+ +-------+---+---+ +---+---+ | | | +---+---+ + +-------+ +-------+---+---+ | bisacodyl (DULCOLAX) | Given | 02/17/20 | 10 mg | | | | suppository 10 mg 10 mg, Rectal, | | 20 4:33 | | | | | DAILY PRN, Constipation, | | PM PDT | | | | | Starting Wed02/14/20 at 1233, If | | | | | | | all other bowel medications | | | | | | | ineffective x 24 hours or not | | | | | | | ordered, | | | | | | + +-------+ +-------+---+---+ +---+---+ | | | +---+---+ + +---------+ +-----+-------+---+ | ceFAZolin in dextrose (ANCEF) | New Bag | 02/15/20 | 2 g | 200 | | | IVPB 2 g 2 g, Intravenous, | | 20 8:10 | | mL/hr | | | Administer over 30 Minutes, EVERY | | PM PDT | | | | | 8 HOURS INTERVAL, First dose on | | | | | | | 02/14/20 at 2000, For 4 doses, | | | | | | | Start 8 hours after previous | | | | | | | dose. Last dose to be given | | | | | | | within 24 hours of surgery end | | | | | | | time Keep in refrigerator., | | | | | | | Post-op/Phase II, Indications: | | | | | | | Surgical Prophylaxis | | | | | | + +---------+ +-----+-------+---+ +---------+ +-----+-------+---+ | New Bag | 02/15/20 | 2 g | 200 | | | | 20 1:54 | | mL/hr | | | | PM PDT | | | | +---------+ +-----+-------+---+ | New Bag | 02/15/20 | 2 g | 200 | | | | 20 4:21 | | mL/hr | | | | AM PDT | | | | +---------+ +-----+-------+---+ +---+---+ | | | +---+---+ + +-------+ +-------+---+---+ | clopidogrel (PLAVIX) tablet 75 | Given | 02/21/20 | 75 mg | | | | mg 75 mg, Oral, DAILY, First | | 20 9:27 | | | | | dose on [facility] 02/15/20 at 0900 | | AM PDT | | | | + +-------+ +-------+---+---+ +-------+ +-------+---+---+ | Given | 02/20/20 | 75 mg | | | | | 20 8:04 | | | | | | AM PDT | | | | +-------+ +-------+---+---+ | Given | 02/19/20 | 75 mg | | | | | 20 8:36 | | | | | | AM PDT | | | | +-------+ +-------+---+---+ +---+---+ | | | +---+---+ + + + + +-------+---+ | dexmedetomidine in saline | Rate/Dos | 02/16/20 | 0.2 | 4.5 | | | (PRECEDEX) 4 mcg/mL infusion | e Change | 20 4:25 | mcg/kg/h | mL/hr | | | 0.2-1.5 mcg/kg/hr | | AM PDT | r | | | | 90 kg (4.5-33.75 mL/hr, rounded | | | | | | | to 4.5-33.8 mL/hr), at 4.5-33.8 | | | | | | | mL/hr, Intravenous, TITRATED, | | | | | | | Starting 02/14/20 at 1300, | | | | | | | Reduce dose every 4 hours to the | | | | | | | lowest dose required to meet | | | | | | | sedation goal., Titration | | | | | | | Instruction: See below, Goal: | | | | | | | Other, Other goal: RASS goal in | | | | | | | pain/sedation management order, | | | | | | | Initial dose: 0.2 mcg/kg/hr, | | | | | | | Increase rate by: 0.2 mcg/kg/hr | | | | | | | every 30 minutes., Decrease rate | | | | | | | by: 0.2 mcg/kg/hr every 30 | | | | | | | minutes., *: Titrate drug per | | | | | | | order as tolerated. Titration may | | | | | | | vary based on the patient | | | | | | | | | | | | | | s critical condition., | | | | | | | Post-op/Phase II | | | | | | + + + + +-------+---+ + + + +---------+---+ | Rate/Dose Change | 02/16/20 | 0.4 | 9 mL/hr | | | | 20 2:25 | mcg/kg/h | | | | | AM PDT | r | | | + + + +---------+---+ | Rate/Dose Change | 02/16/20 | 0.2 | 4.5 | | | | 20 1:33 | mcg/kg/h | mL/hr | | | | AM PDT | r | | | + + + +---------+---+ +---+---+ | | | +---+---+ + + + + +-------+---+ | dexmedetomidine in saline | Rate/Dos | 02/17/20 | 0.2 | 4.9 | | | (PRECEDEX) 4 mcg/mL infusion | e Change | 20 6:20 | mcg/kg/h | mL/hr | | | 0-1.5 mcg/kg/hr | | AM PDT | r | | | | 98.7 kg (0-37.0125 mL/hr, | | | | | | | rounded to 0-37 mL/hr), at 0-37 | | | | | | | mL/hr, Intravenous, TITRATED, | | | | | | | Starting 02/16/20 at 1300, | | | | | | | Titration Instruction: See below, | | | | | | | Goal: RASS -2 to 0, Initial | | | | | | | dose: 0.2 mcg/kg/hr, Increase | | | | | | | rate by: 0.2 mcg/kg/hr every 30 | | | | | | | minutes., Decrease rate by: 0.2 | | | | | | | mcg/kg/hr every 30 minutes., *: | | | | | | | Titrate drug per order as | | | | | | | tolerated. Titration may vary | | | | | | | based on the patient | | | | | | | | | | | | | | s critical condition. | | | | | | + + + + +-------+---+ + + + +-------+---+ | Rate/Dose Change | 02/17/20 | 0.4 | 9.9 | | | | 20 4:50 | mcg/kg/h | mL/hr | | | | AM PDT | r | | | + + + +-------+---+ | New Bag | 02/17/20 | 0.6 | 14.8 | | | | 20 3:10 | mcg/kg/h | mL/hr | | | | AM PDT | r | | | + + + +-------+---+ + +---+ | | | + +---+ | dextrose 10% (D10W) infusion | | | at 50 mL/hr, Intravenous, | | | CONTINUOUS PRN, hypoglycemia, | | | Starting 02/17/20 at 1603, | | | Start infusion if unable to | | | maintain blood glucose greater | | | than 70 mg/dL after two rounds of | | | hypoglycemia treatment. Recheck | | | blood glucose 30 minutes after | | | starting D10W then at least | | | hourly and PRN until it is | | | discontinued. Call provider to | | | discuss parameters for D10W | | | discontinuation., | | + +---+ | | | + +---+ + + + +---+ +---+ | dextrose 5% and sodium chloride | Rate/Dos | 02/16/20 | | 50 mL/hr | | | 0.45% (D5 1/2 NS) infusion at | e Verify | 20 8:03 | | | | | 50 mL/hr, Intravenous, | | AM PDT | | | | | CONTINUOUS, Starting 02/14/20 | | | | | | | at 1300 | | | | | | + + + +---+ +---+ + + +---+ +---+ | New Bag | 02/15/20 | | 50 mL/hr | | | | 20 3:43 | | | | | | AM PDT | | | | + + +---+ +---+ | Rate/Dose Change | 02/14/20 | | 50 mL/hr | | | | 20 8:07 | | | | | | PM PDT | | | | + + +---+ +---+ + +---+ | | | + +---+ | dextrose 50% injection 12.5-25 | | | g 12.5-25 g, Intravenous, PRN, | | | Low Blood Sugar, Starting Sat | | | 02/17/20 at 1603, For blood | | | glucose 50-69 mg/dl - give 12.5 g | | | For blood glucose less than 50 | | | mg/dl - give 25 g, | | + +---+ | | | + +---+ + +-------+ +--------+---+---+ | docusate sodium (COLACE) | Given | 02/18/20 | 100 mg | | | | capsule 100 mg 100 mg, Oral, 2 | | 20 8:03 | | | | | TIMES DAILY, First dose on Wed | | AM PDT | | | | | 02/14/20 at 2100, First line agent | | | | | | | for constipation, | | | | | | + +-------+ +--------+---+---+ +-------+ +--------+---+---+ | Given | 02/17/20 | 100 mg | | | | | 20 8:56 | | | | | | PM PDT | | | | +-------+ +--------+---+---+ | Given | 02/17/20 | 100 mg | | | | | 20 8:44 | | | | | | AM PDT | | | | +-------+ +--------+---+---+ +---+---+ | | | +---+---+ + +-------+ +-------+---+---+ | famotidine (PEPCID) tablet 20 | Given | 02/21/20 | 20 mg | | | | mg 20 mg, Oral, 2 TIMES DAILY, | | 20 9:27 | | | | | First dose on Wed02/14/20 at 2100 | | AM PDT | | | | + +-------+ +-------+---+---+ +-------+ +-------+---+---+ | Given | 02/20/20 | 20 mg | | | | | 20 9:12 | | | | | | PM PDT | | | | +-------+ +-------+---+---+ | Given | 02/20/20 | 20 mg | | | | | 20 8:04 | | | | | | AM PDT | | | | +-------+ +-------+---+---+ +---+---+ | | | +---+---+ + +-------+ +-------+---+---+ | furosemide (LASIX) injection 20 | Given | 02/16/20 | 20 mg | | | | mg 20 mg, Intravenous, ONCE, | | 20 12:54 | | | | | 02/16/20 at 1245, For 1 dose | | PM PDT | | | | + +-------+ +-------+---+---+ +---+---+ | | | +---+---+ + +-------+ +-------+---+---+ | furosemide (LASIX) tablet 40 mg | Given | 02/21/20 | 40 mg | | | | 40 mg, Oral, 2 TIMES DAILY 0800 | | 20 9:27 | | | | | & 1600, First dose on Mon | | AM PDT | | | | | 02/19/20 at 0900 | | | | | | + +-------+ +-------+---+---+ +-------+ +-------+---+---+ | Given | 02/20/20 | 40 mg | | | | | 20 4:12 | | | | | | PM PDT | | | | +-------+ +-------+---+---+ | Given | 02/20/20 | 40 mg | | | | | 20 8:04 | | | | | | AM PDT | | | | +-------+ +-------+---+---+ +---+---+ | | | +---+---+ + +-------+ +--------+---+---+ | HYDROmorphone (DILAUDID) | Given | 02/16/20 | 0.5 mg | | | | injection 0.25-1 mg 0.25-1 mg, | | 20 12:43 | | | | | Intravenous, EVERY 10 MIN PRN, | | AM PDT | | | | | Pain, Starting 02/14/20 at | | | | | | | 1233, While intubated only. To | | | | | | | maximum of 6 mg in 4 hours., | | | | | | | Post-op/Phase II | | | | | | + +-------+ +--------+---+---+ +-------+ +------+---+---+ | Given | 02/14/20 | 1 mg | | | | | 20 5:19 | | | | | | PM PDT | | | | +-------+ +------+---+---+ | Given | 02/14/20 | 1 mg | | | | | 20 1:19 | | | | | | PM PDT | | | | +-------+ +------+---+---+ +---+---+ | | | +---+---+ + +-------+ +------+---+---+ | HYDROmorphone (DILAUDID) | Given | 02/16/20 | 1 mg | | | | injection 0.5-1 mg 0.5-1 mg, | | 20 5:37 | | | | | Intravenous, EVERY 1 HOUR PRN, | | AM PDT | | | | | Pain, Starting 02/14/20 at | | | | | | | 1233, If oral route not an | | | | | | | option. Slow IV push, not faster | | | | | | | than 0.3mg/minute. First dose | | | | | | | must be lowest dose, titrate to | | | | | | | effective dose by repeat of | | | | | | | lowest dose every 30 minutes prn | | | | | | | pain, may not exceed maximum dose | | | | | | | ordered per interval. Use | | | | | | | Pasero Sedation Scale., | | | | | | + +-------+ +------+---+---+ +-------+ +------+---+---+ | Given | 02/16/20 | 1 mg | | | | | 20 12:09 | | | | | | AM PDT | | | | +-------+ +------+---+---+ | Given | 02/15/20 | 1 mg | | | | | 20 6:38 | | | | | | AM PDT | | | | +-------+ +------+---+---+ +---+---+ | | | +---+---+ + +-------+ + +---+ + | insulin detemir (LEVEMIR | Given | 02/20/20 | 18 Units | | Arm-Righ | | FLEXTOUCH) injection (pen) 18 | | 20 9:14 | | | t Upper | | Units 18 Units, Subcutaneous, | | PM PDT | | | | | EVERY 24 HOURS, First dose on Sat | | | | | | | 02/17/20 at 1800, If the total | | | | | | | daily dose of Levemir is 40 units | | | | | | | or greater, it should be ordered | | | | | | | as BID with 1/2 of the dose in | | | | | | | the morning and 1/2 dose at | | | | | | | bedtime., If NPO: Other (see | | | | | | | instruction), Instruction: If | | | | | | | patient is NPO or not tolerating | | | | | | | meals, HOLD all scheduled insulin | | | | | | | and give Correction Scale doses | | | | | | | only. | | | | | | + +-------+ + +---+ + +-------+ + +---+ + | Given | 02/19/20 | 18 Units | | Arm-Left | | | 20 8:55 | | | Upper | | | PM PDT | | | | +-------+ + +---+ + | Given | 02/18/20 | 18 Units | | Abdomen- | | | 20 9:59 | | | RLQ | | | PM PDT | | | | +-------+ + +---+ + +---+---+ | | | +---+---+ + +-------+ +---------+---+ + | insulin lispro (humaLOG, | Given | 02/20/20 | 1 Units | | Arm-Left | | ADMELOG) injection (vial) 1-7 | | 20 9:15 | | | Upper | | Units 1-7 Units, Subcutaneous, | | PM PDT | | | | | NIGHTLY, First dose on Sat | | | | | | | 02/17/20 at 2100, [employer] | | | | | | | Correctional Scale: For Blood | | | | | | | Glucose (BG): 142 to 180 Give 1 | | | | | | | units 181 to 220 Give 2 units | | | | | | | 221 to 260 Give 3 units 261 to | | | | | | | 300 Give 4 units 301 to 350 Give | | | | | | | 5 units 351 to 400 Give 6 | | | | | | | units Over 400 Give 7 units | | | | | | | Only for use with U-100 insulin | | | | | | | syringe., | | | | | | + +-------+ +---------+---+ + +-------+ +---------+---+ + | Given | 02/19/20 | 1 Units | | Arm-Left | | | 20 8:56 | | | Upper | | | PM PDT | | | | +-------+ +---------+---+ + | Given | 02/18/20 | 2 Units | | Abdomen- | | | 20 9:59 | | | RUQ | | | PM PDT | | | | +-------+ +---------+---+ + + +---+ | | | + +---+ | insulin lispro (humaLOG, | | | ADMELOG) injection (vial) 10 | | | Units 10 Units, Subcutaneous, 3 | | | TIMES DAILY WITH MEALS, First | | | dose (after last modification) on | | | 02/21/20 at 1200, Hold if | | | patient is NPO or not eating. | | | Only for use with U-100 insulin | | | syringe., | | + +---+ | | | + +---+ + +-------+ +---------+---+ + | insulin lispro (humaLOG, | Given | 02/20/20 | 4 Units | | Arm-Left | | ADMELOG) injection (vial) 2-14 | | 20 4:17 | | | Upper | | Units 2-14 Units, Subcutaneous, | | PM PDT | | | | | 3 TIMES DAILY WITH MEALS, First | | | | | | | dose on 02/17/20 at 1700, | | | | | | | EndoTool Correctional Scale: For | | | | | | | Blood Glucose (BG): 142 to 180 | | | | | | | Give 2 units 181 to 220 Give | | | | | | | 4 units 221 to 260 Give 6 units | | | | | | | 261 to 300 Give 8 units 301 to | | | | | | | 350 Give 10 units 351 to 400 | | | | | | | Give 12 units Over 400 Give | | | | | | | 14 units Only for use with U-100 | | | | | | | insulin syringe., | | | | | | + +-------+ +---------+---+ + +-------+ +---------+---+ + | Given | 02/20/20 | 4 Units | | Arm-Righ | | | 20 1:58 | | | t Upper | | | PM PDT | | | | +-------+ +---------+---+ + | Given | 02/19/20 | 6 Units | | Arm-Righ | | | 20 12:14 | | | t Upper | | | PM PDT | | | | +-------+ +---------+---+ + +---+---+ | | | +---+---+ + +-------+ +---------+---+ + | insulin lispro (humaLOG, | Given | 02/21/20 | 5 Units | | Arm-Righ | | ADMELOG) injection (vial) 5 Units | | 20 6:34 | | | t Upper | | 5 Units, Subcutaneous, 3 TIMES | | AM PDT | | | | | DAILY WITH MEALS, First dose on | | | | | | | 02/17/20 at 1700, Hold if | | | | | | | patient is NPO or not eating. | | | | | | | Only for use with U-100 insulin | | | | | | | syringe., | | | | | | + +-------+ +---------+---+ + +-------+ +---------+---+ + | Given | 02/20/20 | 5 Units | | Arm-Left | | | 20 4:17 | | | Upper | | | PM PDT | | | | +-------+ +---------+---+ + | Given | 02/20/20 | 5 Units | | Arm-Left | | | 20 1:57 | | | Upper | | | PM PDT | | | | +-------+ +---------+---+ + +---+---+ | | | +---+---+ + + + + +---------+---+ | insulin regular (humuLIN R, | Rate/Dos | 02/17/20 | 1 | 1 mL/hr | | | novoLIN R) 1 Units/mL in sodium | e Change | 20 5:19 | Units/hr | | | | chloride 0.9% 250 mL infusion | | PM PDT | | | | | (EndoTool) 0.1-50 Units/hr | | | | | | | (0.1-50 mL/hr), at 0.1-50 mL/hr, | | | | | | | Intravenous, TITRATED, Starting | | | | | | | 02/14/20 at 1300, Work with | | | | | | | provider to assure there are no | | | | | | | other orders for other insulin or | | | | | | | oral diabetes medications. | | | | | | | Attach insulin drip into "Y" site | | | | | | | of normal saline IV running @ 30 | | | | | | | mL/hr. Prime tubing with 30 mL | | | | | | | of insulin infusion, prior to | | | | | | | starting infusion. Patient should | | | | | | | be on continuous nutritional | | | | | | | support while on IV insulin. When | | | | | | | patient's blood glucose is | | | | | | | stable as indicated by [employer], | | | | | | | convert to subcutaneous | | | | | | | correctional insulin based on | | | | | | | [employer] conversion orders., | | | | | | + + + + +---------+---+ + + + +-------+---+ | Rate/Dose Change | 02/17/20 | 4.4 | 4.4 | | | | 20 3:42 | Units/hr | mL/hr | | | | PM PDT | | | | + + + +-------+---+ | Rate/Dose Change | 02/17/20 | 1.9 | 1.9 | | | | 20 11:50 | Units/hr | mL/hr | | | | AM PDT | | | | + + + +-------+---+ +---+---+ | | | +---+---+ + +-------+ +-------+---+---+ | lisinopril (PRINIVIL, ZESTRIL) | Given | 02/21/20 | 10 mg | | | | tablet 10 mg 10 mg, Oral, DAILY, | | 20 9:27 | | | | | First dose on Wed02/21/20 at | | AM PDT | | | | | 0900 | | | | | | + +-------+ +-------+---+---+ +---+---+ | | | +---+---+ + +-------+ +--------+---+---+ | magnesium hydroxide (MILK OF | Given | 02/16/20 | 30 mLs | | | | MAGNESIA) 400 mg/5 mL suspension | | 20 9:50 | | | | | 30 mL 30 mL, Oral, NIGHTLY, | | PM PDT | | | | | First dose on Wed02/14/20 at | | | | | | | 2100, If docusate, senna, and | | | | | | | polyethylene glycol ineffective x | | | | | | | 24 hours or not ordered, | | | | | | + +-------+ +--------+---+---+ +-------+ +--------+---+---+ | Given | 02/15/20 | 30 mLs | | | | | 20 9:55 | | | | | | PM PDT | | | | +-------+ +--------+---+---+ | Given | 02/15/20 | 30 mLs | | | | | 20 9:54 | | | | | | AM PDT | | | | +-------+ +--------+---+---+ +---+---+ | | | +---+---+ + +-------+ +--------+---+---+ | magnesium oxide (MAG-OX) tablet | Given | 02/19/20 | 800 mg | | | | 800 mg 800 mg, Oral, DAILY PRN, | | 20 8:36 | | | | | Per protocol, Starting Sun | | AM PDT | | | | | 02/18/20 at 0020, NON-ICU Protocol | | | | | | | Replace magnesium once per day | | | | | | | based on morning magnesium level. | | | | | | | Use scale below to determine | | | | | | | dose. If further replacement is | | | | | | | required after this morning dose | | | | | | | of magnesium, notify provider | | | | | | | Protocol NOT recommended if Scr > | | | | | | | 1.8, dialysis patients or CrCl < | | | | | | | 50 mL/min Magnesium = 1-1.9 | | | | | | | mg/dL Give magnesium oxide 800 | | | | | | | mg PO x1 * Check magnesium in | | | | | | | AM If unable to tolerate po or | | | | | | | magnesium < 1mg/dL use IV | | | | | | | magnesium replacement. Give PO or | | | | | | | IV but never both. Maximum | | | | | | | recommended infusion rate = 1 | | | | | | | gram/hour., | | | | | | + +-------+ +--------+---+---+ +-------+ +--------+---+---+ | Given | 02/18/20 | 800 mg | | | | | 20 8:03 | | | | | | AM PDT | | | | +-------+ +--------+---+---+ +---+---+ | | | +---+---+ + +---------+ +-----+ +---+ | magnesium sulfate 2 g/50 mL | New Bag | 02/15/20 | 2 g | 25 mL/hr | | | IVPB 2 g 2 g, Intravenous, | | 20 5:39 | | | | | Administer over 120 Minutes, PRN, | | AM PDT | | | | | Per protocol, Starting Wed | | | | | | | 02/14/20 at 1233, ICU Use Only | | | | | | | Protocol NOT recommended if Scr | | | | | | | > 1.8, dialysis patients or CrCl | | | | | | | < 50 mL/min Magnesium = 1-1.9 | | | | | | | mg/dL Give magnesium sulfate 2 | | | | | | | g IV x1 * Check magnesium 2 | | | | | | | hours after infusion is completed | | | | | | | If magnesium still < 1.9 | | | | | | | mg/dL,replace as indicated per | | | | | | | protocol Maximum recommended | | | | | | | infusion rate = 1 gram/hour., | | | | | | | Post-op/Phase II | | | | | | + +---------+ +-----+ +---+ + +---+ | | | + +---+ | magnesium sulfate 2 g/50 mL | | | IVPB 2 g 2 g, Intravenous, | | | Administer over 120 Minutes, | | | DAILY PRN, Per protocol, Starting | | | 02/18/20 at 0020, NON-ICU | | | Protocol Replace magnesium once | | | per day based on morning | | | magnesium level. Use scale below | | | to determine dose. If further | | | replacement is required after | | | this morning dose of magnesium, | | | notify provider Protocol NOT | | | recommended if Scr > 1.8, | | | dialysis patients or CrCl < 50 | | | mL/min Magnesium = 1-1.9 mg/dL | | | Give magnesium sulfate 2 g IV x1 | | | * Check magnesium 2 hours | | | after infusion is completed If | | | magnesium still < 1.9 mg/dL, | | | contact provider for further | | | instruction. Give PO or IV but | | | never both. Maximum recommended | | | infusion rate = 1 gram/hour., | | + +---+ | | | + +---+ | magnesium sulfate 4 g/100 mL | | | IVPB 4 g 4 g, Intravenous, | | | Administer over 240 Minutes, | | | DAILY PRN, Per protocol, Starting | | | 02/18/20 at 0020, NON-ICU | | | Protocol Replace magnesium once | | | per day based on morning | | | magnesium level. Use scale below | | | to determine dose. If further | | | replacement is required after | | | this morning dose of magnesium, | | | notify provider Protocol NOT | | | recommended if Scr > 1.8, | | | dialysis patients or CrCl < 50 | | | mL/min Magnesium < 1 mg/dL | | | Give magnesium sulfate 4 g IV x1 | | | * Check magnesium 2 hours | | | after infusion is completed If | | | magnesium still < 1.9 mg/dL, | | | contact provider for further | | | instruction. Give PO or IV but | | | never both. Maximum recommended | | | infusion rate = 1 gram/hour., | | + +---+ | | | + +---+ + +-------+ +--------+---+---+ | metoprolol succinate | Given | 02/21/20 | 100 mg | | | | (TOPROL-XL) ER tablet 100 mg 100 | | 20 9:27 | | | | | mg, Oral, DAILY, First dose on | | AM PDT | | | | | 02/21/20 at 0900, Tablet may | | | | | | | be cut where scored but do not | | | | | | | crush., | | | | | | + +-------+ +--------+---+---+ +---+---+ | | | +---+---+ + +-------+ +---------+---+---+ | metoprolol tartrate (LOPRESSOR) | Given | 02/16/20 | 12.5 mg | | | | tablet 12.5 mg 12.5 mg, Oral, 2 | | 20 9:50 | | | | | TIMES DAILY, First dose on Wed | | PM PDT | | | | | 02/14/20 at 2100, Hold if SBP < | | | | | | | 100, or HR < 50, | | | | | | + +-------+ +---------+---+---+ +-------+ +---------+---+---+ | Given | 02/16/20 | 12.5 mg | | | | | 20 9:32 | | | | | | AM PDT | | | | +-------+ +---------+---+---+ | Given | 02/14/20 | 12.5 mg | | | | | 20 8:09 | | | | | | PM PDT | | | | +-------+ +---------+---+---+ +---+---+ | | | +---+---+ + +-------+ +-------+---+---+ | metoprolol tartrate (LOPRESSOR) | Given | 02/18/20 | 25 mg | | | | tablet 25 mg 25 mg, Oral, 2 | | 20 8:57 | | | | | TIMES DAILY, First dose (after | | PM PDT | | | | | last modification) on 02/17/20 | | | | | | | at 0900, Hold if SBP < 100, or | | | | | | | HR < 50, | | | | | | + +-------+ +-------+---+---+ +-------+ +-------+---+---+ | Given | 02/18/20 | 25 mg | | | | | 20 8:03 | | | | | | AM PDT | | | | +-------+ +-------+---+---+ | Given | 02/17/20 | 25 mg | | | | | 20 8:56 | | | | | | PM PDT | | | | +-------+ +-------+---+---+ +---+---+ | | | +---+---+ + +-------+ +---------+---+---+ | metoprolol tartrate (LOPRESSOR) | Given | 02/20/20 | 37.5 mg | | | | tablet 37.5 mg 37.5 mg, Oral, 2 | | 20 9:12 | | | | | TIMES DAILY, First dose (after | | PM PDT | | | | | last modification) on 02/19/20 | | | | | | | at 0900, Hold if SBP < 100, or | | | | | | | HR < 50, | | | | | | + +-------+ +---------+---+---+ +-------+ +---------+---+---+ | Given | 02/20/20 | 37.5 mg | | | | | 20 8:04 | | | | | | AM PDT | | | | +-------+ +---------+---+---+ | Given | 02/19/20 | 37.5 mg | | | | | 20 8:54 | | | | | | PM PDT | | | | +-------+ +---------+---+---+ +---+---+ | | | +---+---+ + + + +---------+-------+---+ | nitroglycerin in dextrose 200 | Restarte | 02/16/20 | 5 | 1.5 | | | mcg/mL infusion 5-400 mcg/min | d | 20 12:20 | mcg/min | mL/hr | | | (1.5-120 mL/hr), at 1.5-120 | | AM PDT | | | | | mL/hr, Intravenous, TITRATED, | | | | | | | Starting 02/14/20 at 1300, | | | | | | | Titration Instruction: See below, | | | | | | | Goal: SBP less than 160, Initial | | | | | | | dose: 5 mcg/min, Increase rate | | | | | | | by: 5 mcg/min every 5 minutes | | | | | | | until 20 mcg/min achieved, then | | | | | | | increase by 10 mcg/min every 5 | | | | | | | minutes., Decrease rate by: 10 | | | | | | | mcg/min every 5 minutes., *: | | | | | | | Titrate drug per order as | | | | | | | tolerated. Titration may vary | | | | | | | based on the patient | | | | | | | | | | | | | | s critical condition., | | | | | | | Post-op/Phase II | | | | | | + + + +---------+-------+---+ +---+---+ | | | +---+---+ + +-------+ +------+---+---+ | ondansetron (ZOFRAN) injection | Given | 02/15/20 | 4 mg | | | | 4 mg 4 mg, Intravenous, EVERY 6 | | 20 9:54 | | | | | HOURS PRN, Nausea, Vomiting, | | AM PDT | | | | | Starting 02/14/20 at 1233, | | | | | | | First line agent Use PO option | | | | | | | unless NPO status or unable to | | | | | | | tolerate., | | | | | | + +-------+ +------+---+---+ +---+---+ | | | +---+---+ + +-------+ +------+---+---+ | oxyCODONE (ROXICODONE) tablet | Given | 02/16/20 | 5 mg | | | | 2.5-10 mg 2.5-10 mg, Oral, EVERY | | 20 10:45 | | | | | 3 HOURS PRN, Pain, Starting Wed | | AM PDT | | | | | 02/14/20 at 1233, First dose must | | | | | | | be the lowest dose, can titrate | | | | | | | to effective dose by repeat of | | | | | | | lowest dose every 60 minutes prn | | | | | | | pain, may not exceed maximum dose | | | | | | | ordered per interval. Use Pasero | | | | | | | Sedation Scale., | | | | | | + +-------+ +------+---+---+ +-------+ +-------+---+---+ | Given | 02/16/20 | 10 mg | | | | | 20 5:29 | | | | | | AM PDT | | | | +-------+ +-------+---+---+ | Given | 02/16/20 | 10 mg | | | | | 20 2:58 | | | | | | AM PDT | | | | +-------+ +-------+---+---+ +---+---+ | | | +---+---+ + + + +---------+ +---+ | phenylephrine (SOURAV-SYNEPHRINE, | Rate/Dos | 02/15/20 | 20 | 12 mL/hr | | | VAZCULEP) 100 mcg/mL in sodium | e Verify | 20 7:44 | mcg/min | | | | chloride 0.9% 500 mL infusion | | PM PDT | | | | | 20-260 mcg/min (12-156 mL/hr), at | | | | | | | 12-156 mL/hr, Intravenous, | | | | | | | TITRATED, Starting 02/14/20 at | | | | | | | 1300, Titration Instruction: See | | | | | | | below, Goal: MAP 65 and greater, | | | | | | | SBP greater than 90, Initial | | | | | | | dose: 100 mcg/min, Increase rate | | | | | | | by: 20 mcg/min every 5 minutes., | | | | | | | Decrease rate by: 20 mcg/min | | | | | | | every 5 minutes., *: Titrate drug | | | | | | | per order as tolerated. | | | | | | | Titration may vary based on the | | | | | | | patient | | | | | | | | | | | | | | s critical condition., | | | | | | | Post-op/Phase II | | | | | | + + + +---------+ +---+ + + +---------+ +---+ | New Bag | 02/15/20 | 30 | 18 mL/hr | | | | 20 4:57 | mcg/min | | | | | PM PDT | | | | + + +---------+ +---+ | Rate/Dose Change | 02/15/20 | 40 | 24 mL/hr | | | | 20 4:00 | mcg/min | | | | | PM PDT | | | | + + +---------+ +---+ +---+---+ | | | +---+---+ + +-------+ +------+---+---+ | polyethylene glycol (MIRALAX) | Given | 02/15/20 | 17 g | | | | powder 17 g 17 g, Oral, DAILY | | 20 9:55 | | | | | PRN, Constipation, Starting Wed | | AM PDT | | | | | 02/14/20 at 1233, If docusate and | | | | | | | senna ineffective or not ordered, | | | | | | | | | | | | | + +-------+ +------+---+---+ +---+---+ | | | +---+---+ + +-------+ +--------+---+---+ | potassium chloride (KLOR-CON) | Given | 02/17/20 | 20 mEq | | | | ER tablet 20-40 mEq 20-40 mEq, | | 20 6:38 | | | | | Oral, DAILY PRN, Per protocol, | | AM PDT | | | | | Starting Wed02/16/20 at 1132, | | | | | | | NON-ICU Protocol Replace | | | | | | | potassium once per day based on | | | | | | | morning potassium level. Use | | | | | | | scale below to determine dose. If | | | | | | | further replacement is required | | | | | | | after this morning dose of | | | | | | | potassium, notify provider | | | | | | | Protocol NOT recommended if Scr > | | | | | | | 1.8, dialysis patients or CrCl < | | | | | | | 50 mL/min [K+] =3.6 - 4 mEql/L | | | | | | | Give 20 mEq KCl PO x 1 dose | | | | | | | [K+] 3.0 - 3.5 mEql/L Give 40 | | | | | | | mEq KCl PO x 1 dose [K+] < 3.0 | | | | | | | mEq/L Notify provider * | | | | | | | Recheck K+ 4 hours after | | | | | | | replacement is done. Give either | | | | | | | tablet, liquid, or IV but never | | | | | | | more than one form. If repeat K | | | | | | | is still < 3.5, contact provider | | | | | | | for further instruction. May take | | | | | | | with food to decrease GI upset., | | | | | | | | | | | | | + +-------+ +--------+---+---+ +---+---+ | | | +---+---+ + +-------+ +--------+---+---+ | potassium chloride (KLOR-CON) | Given | 02/21/20 | 20 mEq | | | | ER tablet 20-40 mEq 20-40 mEq, | | 20 6:34 | | | | | Oral, DAILY PRN, Per protocol, | | AM PDT | | | | | Starting 02/18/20 at 0015, | | | | | | | NON-ICU Protocol Replace | | | | | | | potassium once per day based on | | | | | | | morning potassium level. Use | | | | | | | scale below to determine dose. If | | | | | | | further replacement is required | | | | | | | after this morning dose of | | | | | | | potassium, notify provider | | | | | | | Protocol NOT recommended if Scr > | | | | | | | 1.8, dialysis patients or CrCl < | | | | | | | 50 mL/min [K+] =3.6 - 4 mEql/L | | | | | | | Give 20 mEq KCl PO x 1 dose | | | | | | | [K+] 3.0 - 3.5 mEql/L Give 40 | | | | | | | mEq KCl PO x 1 dose [K+] < 3.0 | | | | | | | mEq/L Notify provider * | | | | | | | Recheck K+ 4 hours after | | | | | | | replacement is done. Give either | | | | | | | tablet, liquid, or IV but never | | | | | | | more than one form. If repeat K | | | | | | | is still < 3.5, contact provider | | | | | | | for further instruction. May take | | | | | | | with food to decrease GI upset., | | | | | | | | | | | | | + +-------+ +--------+---+---+ +-------+ +--------+---+---+ | Given | 02/20/20 | 20 mEq | | | | | 20 8:04 | | | | | | AM PDT | | | | +-------+ +--------+---+---+ | Given | 02/19/20 | 20 mEq | | | | | 20 8:36 | | | | | | AM PDT | | | | +-------+ +--------+---+---+ +---+---+ | | | +---+---+ + +-------+ +--------+---+---+ | potassium chloride (KLOR-CON) | Given | 02/16/20 | 40 mEq | | | | ER tablet 40-60 mEq 40-60 mEq, | | 20 6:34 | | | | | Oral, PRN, Per protocol, Starting | | AM PDT | | | | | 02/14/20 at 1233, ICU Use | | | | | | | Only Protocol NOT recommended | | | | | | | if Scr > 1.8, dialysis patients | | | | | | | or CrCl < 50 mL/min [K+] =3.6 - | | | | | | | 4.5 mEql/L Give 40 mEq KCl PO x | | | | | | | 1 dose [K+] =3 - 3.5 mEql/L | | | | | | | Give 60 mEq KCl PO x 1 dose [K+] | | | | | | | < 3.0 mEql/L Give 40 mEq KCl | | | | | | | Q2H PO x 2 doses for total of | | | | | | | 80 meq. * Obtain K+ level 4 | | | | | | | hours after replacement is | | | | | | | done. If K+ still < 3.6 mEq/L, | | | | | | | repeat replacement as | | | | | | | indicated per protocol. Give | | | | | | | either tablet, liquid, or IV but | | | | | | | never more than one form. May | | | | | | | take with food to decrease GI | | | | | | | upset., Post-op/Phase II | | | | | | + +-------+ +--------+---+---+ + +---+ | | | + +---+ | potassium chloride (KLOR-CON) | | | packet 20-40 mEq 20-40 mEq, Per | | | G Tube, DAILY PRN, Per Protocol, | | | Starting 02/18/20 at 0015, | | | NON-ICU Protocol Replace | | | potassium once per day based on | | | morning potassium level. Use | | | scale below to determine dose. If | | | further replacement is required | | | after this morning dose of | | | potassium, notify provider | | | Protocol NOT recommended if Scr > | | | 1.8, dialysis patients or CrCl < | | | 50 mL/min [K+] =3.6 - 4 mEql/L | | | Give 20 mEq KCl PO x 1 dose | | | [K+] 3.0 - 3.5 mEql/L Give 40 | | | mEq KCl PO x 1 dose [K+] < 3.0 | | | mEq/L Notify provider * | | | Recheck K+ 4 hours after | | | replacement is done. Give either | | | tablet, liquid, or IV but never | | | more than one form. If repeat K | | | is still < 3.5, contact provider | | | for further instruction., | | + +---+ | | | + +---+ + +---------+ +--------+-------+---+ | potassium chloride 20 mEq in | New Bag | 02/16/20 | 20 mEq | 130 | | | sodium chloride 0.9% 250 mL IVPB | | 20 3:27 | | mL/hr | | | 20 mEq, Intravenous, Administer | | PM PDT | | | | | over 2 Hours, DAILY PRN, Per | | | | | | | protocol, Starting Wed02/16/20 at | | | | | | | 1132, NON-ICU Protocol Replace | | | | | | | potassium once per day based on | | | | | | | morning potassium level. Use | | | | | | | scale below to determine dose. If | | | | | | | further replacement is required | | | | | | | after this morning dose of | | | | | | | potassium, notify provider | | | | | | | Protocol NOT recommended if Scr > | | | | | | | 1.8, dialysis patients or CrCl < | | | | | | | 50 mL/min [K+] =3.6 - 4 mEql/L | | | | | | | Give 20 mEq KCl IV X 1 dose | | | | | | | * Recheck K+ 2 hours after | | | | | | | replacement is done. Give either | | | | | | | tablet, liquid, or IV but never | | | | | | | more than one form. If repeat K | | | | | | | is still < 3.5, contact provider | | | | | | | for further instruction., | | | | | | + +---------+ +--------+-------+---+ + +---+ | | | + +---+ | potassium chloride 20 mEq in | | | sodium chloride 0.9% 250 mL IVPB | | | 20 mEq, Intravenous, Administer | | | over 2 Hours, DAILY PRN, Per | | | protocol, Starting 02/18/20 at | | | 0015, NON-ICU Protocol Replace | | | potassium once per day based on | | | morning potassium level. Use | | | scale below to determine dose. If | | | further replacement is required | | | after this morning dose of | | | potassium, notify provider | | | Protocol NOT recommended if Scr > | | | 1.8, dialysis patients or CrCl < | | | 50 mL/min [K+] =3.6 - 4 mEql/L | | | Give 20 mEq KCl IV X 1 dose | | | * Recheck K+ 2 hours after | | | replacement is done. Give either | | | tablet, liquid, or IV but never | | | more than one form. If repeat K | | | is still < 3.5, contact provider | | | for further instruction., | | + +---+ | | | + +---+ + +---------+ +--------+ +---+ | potassium chloride 20 mEq in | New Bag | 02/15/20 | 20 mEq | 50 mL/hr | | | sterile water 50 mL IVPB 20 mEq, | | 20 5:44 | | | | | Intravenous, Administer over 1 | | AM PDT | | | | | Hours, PRN, Per protocol, | | | | | | | Starting 02/14/20 at 1233, | | | | | | | ICU Use Only For Central | | | | | | | Line use Only Protocol NOT | | | | | | | recommended if Scr > 1.8, | | | | | | | dialysis patients or CrCl < 50 | | | | | | | mL/min [K+] =3.6 - 4.5 mEql/L | | | | | | | Give 20 mEq KCl Q1H IV x 2 doses | | | | | | | For a total of 40 mEq [K+] =3 | | | | | | | - 3.5 mEql/L Give 20 meq KCl | | | | | | | Q1H IV x 3 doses For a total | | | | | | | of 60 mEq [K+] < 3.0 mEql/L | | | | | | | Give 20 mEq KCl Q1H IV x 4 | | | | | | | doses For a total of 80 mEq. | | | | | | | * Obtain K+ level 2 hours after | | | | | | | replacement is done. If K+ | | | | | | | still < 3.6 mEq/L, repeat | | | | | | | replacement as indicated per | | | | | | | protocol. Give either tablet, | | | | | | | liquid, or IV but never more than | | | | | | | one form., Post-op/Phase II | | | | | | + +---------+ +--------+ +---+ +---------+ +--------+ +---+ | New Bag | 02/15/20 | 20 mEq | 50 mL/hr | | | | 20 3:03 | | | | | | AM PDT | | | | +---------+ +--------+ +---+ | New Bag | 02/14/20 | 20 mEq | 50 mL/hr | | | | 20 6:25 | | | | | | PM PDT | | | | +---------+ +--------+ +---+ + +---+ | | | + +---+ | potassium chloride 40 mEq in | | | sodium chloride 0.9% 500 mL IVPB | | | 40 mEq, Intravenous, Administer | | | over 4 Hours, DAILY PRN, Per | | | protocol, Starting 02/18/20 at | | | 0015, NON-ICU Protocol Replace | | | potassium once per day based on | | | morning potassium level. Use | | | scale below to determine dose. If | | | further replacement is required | | | after this morning dose of | | | potassium, notify provider | | | Protocol NOT recommended if Scr > | | | 1.8, dialysis patients or CrCl < | | | 50 mL/min [K+] 3.0 - 3.5 mEql/L | | | Give 40 mEq KCl IV X 1 dose | | | * Recheck K+ 2 hours after | | | replacement is done. Give either | | | tablet, liquid, or IV but never | | | more than one form. If repeat K | | | is still < 3.5, contact provider | | | for further instruction., | | + +---+ | | | + +---+ + + + +---+ +---+ | sodium chloride 0.9% (NS) | Rate/Dos | 02/16/20 | | 30 mL/hr | | | infusion at 30 mL/hr, | e Verify | 20 8:03 | | | | | Intravenous, CONTINUOUS, Starting | | AM PDT | | | | | 02/14/20 at 1300 | | | | | | + + + +---+ +---+ +---------+ +---+ +---+ | New Bag | 02/14/20 | | 30 mL/hr | | | | 20 2:06 | | | | | | PM PDT | | | | +---------+ +---+ +---+ +---+---+ | | | +---+---+ + +-------+ +--------+---+---+ | tamsulosin (FLOMAX) capsule 0.4 | Given | 02/21/20 | 0.4 mg | | | | mg 0.4 mg, Oral, DAILY AFTER | | 20 9:27 | | | | | BREAKFAST, First dose on Fri | | AM PDT | | | | | 02/16/20 at 0900, Do not crush or | | | | | | | chew capsule. If unable to | | | | | | | swallow, may open capsule and | | | | | | | sprinkle over acidic soft food | | | | | | | (applesauce, yogurt) or in a | | | | | | | small quantity of acidic fruit | | | | | | | juice (orange, grape). Administer | | | | | | | immediately (do not allow | | | | | | | granules to dissolve). Do not | | | | | | | administer via tube routes., | | | | | | + +-------+ +--------+---+---+ +-------+ +--------+---+---+ | Given | 02/20/20 | 0.4 mg | | | | | 20 8:04 | | | | | | AM PDT | | | | +-------+ +--------+---+---+ | Given | 02/19/20 | 0.4 mg | | | | | 20 8:36 | | | | | | AM PDT | | | | +-------+ +--------+---+---+ +---+---+ | | | +---+---+ + +-------+ +-------+---+---+ | traMADol (ULTRAM) tablet 50-100 | Given | 02/19/20 | 50 mg | | | | mg 50-100 mg, Oral, EVERY 6 | | 20 8:36 | | | | | HOURS PRN, Pain, Starting Fri | | AM PDT | | | | | 02/16/20 at 1233 | | | | | | + +-------+ +-------+---+---+ +-------+ +-------+---+---+ | Given | 02/18/20 | 50 mg | | | | | 20 10:45 | | | | | | AM PDT | | | | +-------+ +-------+---+---+ | Given | 02/17/20 | 50 mg | | | | | 20 6:18 | | | | | | PM PDT | | | | +-------+ +-------+---+---+ +---+---+ | | | +---+---+ documented in this encounter
--- OUTSIDE RECORDS SUMMARY | ~2020-02-21 | XMS | Encounter Summary ---
Demographics + + + | Address | [address] | | | [place] [address] | + + + | Home Phone | | + + + | Preferred Language | Unknown | + + + | Marital Status | Unknown | + + + | Restoration Affiliation | Unknown | + + + | Race | White | + + + | Ethnic Group | Not or | + + + Author + + + | Author | [facility] | | | and [place] | + + + | Organization | [facility] | | | and [place] | + + + | Address | Unknown | + + + | Phone | Unavailable | + + + Support + + + + + | Name | Relationship | Address | Phone | + + + + + | Valeriedileep Gamboawell | [place] | [address] | | | | | [place] | | | | | [address] | | + + + + + Care Team Providers + +------+ + | Care Associate Professor Of Radiology Name | Role | Phone | + +------+ + | Domingo Justice PA-C | PCP | | + +------+ + Encounter Details +--------+ + + + + | Date | Type | Department | Care Team | Description | +--------+ + + + + | 02[facility]05/ Hospital | [facility] | Cj Cr MD | | | 2019 | Encounter | [facility] | [address] | | | | | [address] | [place], [place] | | | | | [place], [place] | [address] | | | | | [address] | | | | | | [phone] | | | +--------+ + + + + Social [...] + + documented as of this encounter Functional Status + + + [...] + + documented as of this encounter Medications at Time of Discharge + + + +---------+ + + | Medication | Sig | Dispensed | Refills | Start | End Date | | | | | | Date | | + + + +---------+ + + | acetaminophen | Take 2 tablets by | 60 | 0 | 02/21/20 | | | (TYLENOL) 500 mg | [...] (75 mg | 90 | 3 | 11/11/19 | | | (PLAVIX) 75 mg | total) by mouth | tablet | | 20 | 1 | | tablet | Daily | | | | | + + + +---------+ + + | docusate sodium | Take 100 mg by mouth | 30 | 1 | 02/21/20 | | | (COLACE) 100 MG | Twice daily as | capsule | | 20 | | | capsule | needed for | | | | | | | Constipation. | | | | | + + + +---------+ + + | furosemide (LASIX) | Take 1 tablet by | 30 | 0 | 02/21/20 | | | 40 mg tablet | mouth Daily. | tablet | | 20 | | + + + +---------+ + + | insulin detemir | Inject 18 Units | 6 mL | 0 | /30/20 | | | (LEVEMIR FLEXTOUCH) | under the skin every | | | 20 | | | 100 units/mL | 24 hours. | | | | | | injection (pen) | | | | | | + + + +---------+ + + | insulin lispro | Inject 10 Units | 9 mL | 0 | 02/20/20 | | | (HUMALOG, ADMELOG) | under the skin 3 | | | 20 | | | 100 units/mL | times daily (with | | | | | | injection (vial) | meals). | | | | | + + + +---------+ + + | insulin lispro | Inject 2-14 Units | 3 mL | 0 | /30/20 | | [...] | | | | | | | [id number] to 220 Give | | | | | | | 4 to 260 | | | | | | | Give 6 | | | | | | | to 300 Give 8 | | | | | | | [id number] to 350 Give | | | | [...] + | metoprolol | Take 1 tablet (50 mg | 90 | 3 | 11/11/19 | | | succinate | total) by mouth | tablet | | 20 | 0 | | (TOPROL-XL) 50 mg 24 | Daily | | | | | | hr tablet | | | | | | + + + +---------+ + + | nitroglycerin | Place 1 tablet (0.4 | 30 | 11 | 11/10/19 | | | (NITROSTAT) 0.4 mg | mg total) under the | tablet | | 20 | 0 | | SL tablet | tongue every 5 | | | | | | | minutes as needed | | | | | | | for Chest pain | | | | | + + + +---------+ + + documented as of this encounter Plan of Treatment Not on filedocumented as of this encounter Procedures + +--------+ + + + | Procedure Name | Priori | Date/Time | Associated Diagnosis | Comments | | | ty | | | | + +--------+ + + + | XR CHEST 2 VIEWS | STAT | 02/06/2020 | | Results for this | | | | 3:03 PM | | procedure are in the | | | | PDT | | results section. | + +--------+ + + + documented in this encounter Results XR Chest 2 Vws (02/06/2020 3:03 PM PDT) + + | Specimen | + + | | + + + + + | Impressions | Performed At | + + + | 1. No acute cardiopulmonary disease. 2. Mild multilevel anterior | [facility] | | wedge compression fractures of the mid to lower thoracic spine, with | | | subjectively low bone mineral density. Final Report | | | Signed by: Jagdish Avila Sean Sign Date/Time: 02/06/2020 3:12 PM | | + + + + + + | Narrative | Performed At | + + + | CHEST TWO VIEWS CLINICAL INFORMATION: Pre operative testing. | [facility] | | COMPARISON: None FINDINGS: Clear lungs. Normal cardiac | | | silhouette and pulmonary vasculature. No pneumothorax or pleural | | | effusion. Multiple mild anterior wedge compression fractures of mid | | | and lower thoracic spine vertebral bodies, with subjectively low | | | bone mineral density. | | + + + + + | Procedure Note | + + | [place], [id number] - 02/06/2020 3:16 PM PDT | | CHEST TWO VIEWS | | | | CLINICAL INFORMATION: | | Pre operative testing. | | | | COMPARISON: | | None | | | | FINDINGS: | | Clear lungs. Normal cardiac silhouette and pulmonary vasculature. No | | pneumothorax or pleural effusion. Multiple mild anterior wedge | | compression fractures of mid and lower thoracic spine vertebral bodies, | | with subjectively low bone mineral density. | | | | IMPRESSION: | | 1. No acute cardiopulmonary disease. | | 2. Mild multilevel anterior wedge compression fractures of the mid to | | lower thoracic spine, with subjectively low bone mineral density. | | | | | | | | | | Final Report Signed by: Jagdish Avila Sean | | Sign Date/Time: 02/06/2020 3:12 PM | + + + +---------+ + + | Performing | Address | City/State/[place] | Phone Number | | Organization | | | | + +---------+ + + | [facility] | | | | + +---------+ + + documented in this encounter Visit Diagnoses Not on filedocumented in this encounter"
--- OUTSIDE RECORDS SUMMARY | ~2020-02-21 | XMS | Encounter Summary ---
Demographics + + + | Address | [address] | | | [place] [address] | + + + | Home Phone | | + + + | Preferred Language | Unknown | + + + | Marital Status | Unknown | + + + | Caodaism Affiliation | Unknown | + + + | Race | White | + + + | Ethnic Group | Not or | + + + Author + + + | Author | [facility] | | | and [place] | + + + | Organization | [facility] | | | and [place] | + + + | Address | Unknown | + + + | Phone | Unavailable | + + + Support + + + + + | Name | Relationship | Address | Phone | + + + + + | Valerie Perales | [place] | [address] | | | | | [place] | | | | | [address] | | + + + + + Care Team Providers + +------+ + | Care Adjutant General Name | Role | Phone | + +------+ + | Domingo Justice PA-C | PCP | | + +------+ + Reason for Visit + + + | Reason | Comments | + + + | Follow-up | CABG | + + + Encounter Details +--------+---------+ + + + | Date | Type | Department | Care Team | Description | +--------+---------+ + + + | 02/05/ | Office | [facility] | Cj Cr MD | CAD in coushatta artery | | 2019 | Visit | CARDIOTHORACIC | [address] | (Primary Dx) | | | | SURGERY [address] | [place], [place] | | | | | [address] | [address] | | | | | [place], [place] | | | | | | [address] | | | | | | [phone] | | | +--------+---------+ + + + Social History + +-------+ [...] + + + | Blood Pressure | 125/77 | 02/06/2020 8:44 AM | | | | | PDT | | + + + + + | Pulse | 74 | 02/06/2020 8:44 AM | | | | | PDT | | + + + + + | Temperature | 36.8 C (98.3 F) | 02/06/2020 8:44 AM | | | | | PDT | | + + + + + | Respiratory Rate | - | - | | + + + + + | Oxygen Saturation | 96% | 02/06/2020 8:44 AM | | | | | PDT | | + + + + + | Inhaled Oxygen | - | - | | | Concentration | | | | + + + + + | Weight | 92.1 kg (203 lb 1.6 | 02/06/2020 8:44 AM | | | | oz) | PDT | | + + + + + | Height | 182.9 cm (6') | 02/06/2020 8:44 AM | | | | | PDT | | + + + + + | Body Mass Index | 27.55 | 02/06/2020 8:44 AM | | | | | PDT [...] documented as of this encounter Progress Notes Cj rC MD - 02/06/2020 8:30 AM PDT Service: Cardiothoracic Surgery Consult Note CHIEF COMPLAINT: [...] atient has significant residual disease with a amrisela grade proximal LAD lesion at a diagonal [...] COR ANGIO; Surgeon: Gary Avery MD; Location: [facility] [place] [facility] CARDIAC CATHERIZATION N/A 11/09/2019 Procedure: CV LHC; Surgeon: Gary Avery MD; Location: [facility] [place] [facility] CARDIAC CATHERIZATION N/A 11/09/2019 Procedure: CV Stent; Surgeon: Gary Avery MD; Location: [facility] [place] [facility] TONSILLECTOMY No Known Allergies (Not [...] file Gets together: Not on file Attends gnosticism service: Not on file Active member of [...] . A BLN NC QNTM APX MR [id number] was used for post-stent dilation. There is [...] Infection 136.9). documented in this enco unter H&P Notes Cj Cr MD - 02/06/2020 8:30 AM PDT Service: Cardiothoracic Surgery Consult Note CHIEF COMPLAINT: [...] COR ANGIO; Surgeon: Gary Avery MD; Location: [facility] [place] [facility] CARDIAC CATHERIZATION N/A 11/09/2019 Procedure: CV LHC; Surgeon: Gary Avery MD; Location: [facility] [place] [facility] CARDIAC CATHERIZATION N/A 11/09/2019 Procedure: CV Stent; Surgeon: Gary Avery MD; Location: [facility] [place] [facility] TONSILLECTOMY No Known Allergies (Not [...] file Gets together: Not on file Attends gnosticism service: Not on file Active member of [...] . A BLN NC QNTM APX MR [id number] was used for post-stent dilation. There is [...] Infection 136.9). documented in this enco unter Plan of Treatment Not on filedocumented as of this encounter Visit Diagnoses + + | Diagnosis | + + | CAD in cous[place]ta artery - Primary Coronary atherosclerosis of [place] coronary artery | + + documented in this encounter"
--- OUTSIDE RECORDS SUMMARY | ~2020-02-21 | XMS | Encounter Summary ---
Demographics + + + | Address | [address] | | | [place] [address] | + + + | Home Phone | | + + + | Preferred Language | Unknown | + + + | Marital Status | Unknown | + + + | Denominational Affiliation | Unknown | + + + | Race | White | + + + | Ethnic Group | Not or | + + + Author + + + | Author | [facility] | | | and [place] | + + + | Organization | [facility] | | | and [place] | + + + | Address | Unknown | + + + | Phone | Unavailable | + + + Support + + + + + | Name | Relationship | Address | Phone | + + + + + | Valerie Perales | ECON | [address] | | | | | [place] | | | | | [address] | | + + + + + Care Team Providers + +------+ + | Care Motel Clerk Name | Role | Phone | + +------+ + | Domingo Justice PA-C | PCP | | + +------+ + Reason for Visit + +--------+ + | Reason | Onset | Comments | | | Date | | + +--------+ + | Follow-up | 02/07/ | abnormal lab results | | | 2020 | | + +--------+ + Encounter Details +--------+ + + + + | Date | Type | Department | Care Team | Description | +--------+ + + + + | 02/07/ | Telephone | [facility] | Cj Cr MD | Follow-up (abnormal | | 2020 | | CARDIOTHORACIC | [address] | lab results) | | | | SURGERY [address] | [place] [facility] [facility] [place] | | | | | [address] | [address] | | | | | [place] | | | | | | [address] | | | | | | [phone] | | | +--------+ + + + [...] + + documented as of this encounter Miscellaneous Notes Telephone Encounter - Mehnaz Chavez RN - 02/13/2020 11:49 AM PDTContacted Miles verified two patient identifiers to follow up on elevated blood glucose readings. Patient reports fasting blood glucose readings ave "200" over the past weekend, states fast ing am BS 200 today. Patient admits he had not followed up with PCP yet, and started taking medication prescribed Metformin 500 mg BID after previous abnormal lab results. Informed pat ient he will be receiving call from [facility] for tomorrow's arrival time for scheduled CABG surg юлия and to call [facility] if has questions. Miles states appreciation for call. Electronically sig tash by Mehnaz Chavez RN at 02/13/2020 12:03 PM PDTTelephone Encounter - Mehnaz Chavez R N - 02/08/2020 2:15 PM PDTContacted Miles verified two patient identifiers to follow up pre admission appointment. Reviewed or blood glucose reading along with Dr. Cr's recommendation to follow up with PCP for better glucose control before surgery can be performed. Miles admits he has not yet scheduled f/u with PCP, states he will call to schedule an appointment and has been "workin g on" controlling his blood glucose. Encouraged patient to schedule f/u with PCP and call cl inic next week with plan of care before moving forward with surgery. Miles verbalized unders tanding and agreed with plan of care. Electronically signed by Mehnaz Chavez RN at 020 2:21 PM PDTdocumented in this encounter Plan of Treatment Not on filedocumented as of this encounter Visit Diagnoses Not on filedocumented in this encounter
--- OUTSIDE RECORDS SUMMARY | ~2020-02-21 | XMS | Encounter Summary ---
Demographics + + + | Address | [address] | | | [place] [address] | + + + | Home Phone | | + + + | Preferred Language | Unknown | + + + | Marital Status | Single | + + + | Buddhist Affiliation | NON | + + + | Race | White | + + + | Ethnic Group | Not or | + + + Author + + + | Author | [facility] | + + + | Organization | [facility] | + + + | Address | Unknown | + + + | Phone | Unavailable | + + + Support + + +---------+ + | Name | Relationship | Address | Phone | + + +---------+ + | Valerie Perales | ECON | Unknown | | + + +---------+ + Care Team Providers + +------+ + | Care Crosstie Inspector Name | Role | Phone | + +------+ + | Forest Laurent MD | PCP | Unavailable | + +------+ + Encounter Details +--------+---------+ + + + | Date | Type | Department | Care Team | Description | +--------+---------+ + + + | 09/26/ | Office | [facility] | Jadiel Merida MD | Stroke (HCC) | | 2010 | Visit | [facility] | [address] | (Primary Dx) | | | | [facility] Center | [place], [place] | | | | | [address] | [address] | | | | | [facility] | [phone] | | | | | [facility], | | | | | | floor [place], [place] | | | | | | [address] | | | | | | [phone] | | | +--------+---------+ + + + Social History + +-------+ +--------+------+ | Tobacco Use | Types | Packs/Day | Years | Date | | | | | Used | | + +-------+ +--------+------+ | Current Every Day | | | | | | Smoker | | | | | + +-------+ +--------+------+ + +---+---+---+ | Smokeless Tobacco: | | | | | Never Used | | | | + +---+---+---+ + + +---------+ + | Alcohol Use | Drinks/Week | oz/Week | Comments | + + +---------+ + | Yes | | | once a month | + + +---------+ + + + [...] + + + | Blood Pressure | 122/81 | 09/26/2010 10:52 AM | | | | | PDT | | + + + + + | Pulse | 93 | 09/26/2010 10:52 AM | | | | | PDT | | + + + + + | Temperature | - | - | | + + + + + | Respiratory Rate | - | - | | + + + + + | Oxygen Saturation | 95% | 09/26/2010 10:52 AM | | | | | PDT | | + + + + + | Inhaled Oxygen | - | - | | | Concentration | | | | + + + + + | Weight | 96.9 kg (213 lb 11.2 | 09/26/2010 10:52 AM | | | | oz) | PDT | | + + + + + | Height | - | - | | + + + + + | Body Mass Index | - | - | | + + + + + documented in this encounter Progress Notes Jadiel Merida MD - 09/26/2010 11:39 AM PDT STROKE I saw and evaluated patient. I reviewed note SHYAM and concur. 55 y.o. 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 He had a MRA showed basilar stenosis. He was transferred to [facility] ED for f urther evaluation. Angio only 40% basilar. 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 Full recovery expect for fatigue. 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 Will check LDL today goal < 70. Patient is a candidate for our prediabetes stroke prevention trial: IRIS. Patients are screened for insulin resista nce - if present they are randomized to pioglitazone vs placebo. Full written informed conse nt obtained from Mr. Sylvester for the IRIS trial at 11:44 AM. All questions were answered and a copy of the consent was given to the patient. P) ASA/Plavix 2 more months Crestor 40mg Screen for IRIS RTC prn I spent greater than 25 minutes with this patient. More than 50% of time was spent in couns eling the patient and reviewing images with the patient including: Stroke education provide d to patient including stroke warning signs, need to dial 911, risk factor reduction, stroke medications and F/U reviewed. documented in this encou nter Miscellaneous Notes Scan - Other, Faculty - 01/07/2011 1:42 PM PDTElectronically signed by Faculty Other at 1:42 PM PDTdocumented in this encounter Plan of Treatment Not on filedocumented as of this encounter Results LIVER SET (AST,ALT,BILI TOTAL,BILI DIRECT,ALK PHOS,ALB,PROT TOTAL) (09/26/2010 11:57 AM PDT ) + +---------+ + + + | Component | Value | Ref Range | Performed | Pathologist | | | | | At | Signature | + +---------+ + + + | ALBUMIN, | 4.5 | 3.5 - 4.7 g/dL | [facility] | | | PLASMA | | | DEPARTMENT | | | (LAB) | | | OF | | | | | | PATHOLOGY | | + +---------+ + + + | BILIRUBIN | 0.8 | 0.3 - 1.2 mg/dL | [facility] | | | TOTAL | | | DEPARTMENT | | | | | | OF | | | | | | PATHOLOGY | | + +---------+ + + + | BILIRUBIN | 0.1 | <0.4 mg/dL | [facility] | | | DIRECT | | | DEPARTMENT | | | | | | OF | | | | | | PATHOLOGY | | + +---------+ + + + | ALK PHOS | 76 | 53 - 128 U/L | [facility] | | | | | | DEPARTMENT | | | | | | OF | | | | | | PATHOLOGY | | + +---------+ + + + | AST(SGOT) | 30 | 15 - 41 U/L | [facility] | | | | | | DEPARTMENT | | | | | | OF | | | | | | PATHOLOGY | | + +---------+ + + + | ALT (SGPT) | 46 | 13 - 48 U/L | [facility] | | | | | | DEPARTMENT | | | | | | OF | | | | | | PATHOLOGY | | + +---------+ + + + | TOTAL | 8.0 (H) | 6.1 - 7.9 g/dL | [facility] | | | PROTEIN, | | | DEPARTMENT | | | PLASMA | | | OF | | | (LAB) | | | PATHOLOGY | | + +---------+ + + + + + | Specimen | + + | Blood - Blood | + + + + + + + | Performing | Address | City/State/Zipcode | Phone Number | | Organization | | | | + + + + + | [facility] DEPARTMENT OF | [address] | [place] [address] | | | PATHOLOGY | [address] | | | + + + + + CK, PLASMA (09/26/2010 11:57 AM PDT) + +-------+ + + + | Component | Value | Ref Range | Performed | Pathologist | | | | | At | Signature | + +-------+ + + + | CK | 71 | 49 - 397 U/L | [facility] | | | | | | DEPARTMENT | | | | | | OF | | | | | | PATHOLOGY | | + +-------+ + + + + + | Specimen | + + | Blood - Blood | + + + + + + + | Performing | Address | City/State/Zipcode | Phone Number | | Organization | | | | + + + + + | [facility] DEPARTMENT OF | [address] | [place] [address] | | | PATHOLOGY | [address] | | | + + + + + LIPID SET (TRIG, T CHOL, HDL, CALC LDL) (09/26/2010 11:57 AM PDT) + + + + + + | Component | Value | Ref Range | Performed | Pathologist | | | | | At | Signature | + + + + + + | CHOLESTEROL | 115Comment: | <200 mg/dL | [facility] | | | (LAB) | Cholesterol Reference | | DEPARTMENT | | | | Range: | | OF | | | | Desirable: <200 | | PATHOLOGY | | | | Borderline | | | | | | High: 200 - 239 | | | | | | | | | | | | High: >=240 | | | | | | LDL Cholesterol | | | | | | Reference Range: | | | | | | | | | | | | Optimal: <100 | | | | | | Near Optimal: | | | | | | 100 - 129 | | | | | | Borderline High: | | | | | | 130 - 159 | | | | | | High: | | | | | | 160 - 189 | | | | | | Very High: | | | | | | >=190 | | | | + + + + + + | TRIGLYCERID | 117Comment: | <150 mg/dL | [facility] | | | ES | Triglyceride Reference | | DEPARTMENT | | | | Range: | | OF | | | | Normal: <150 | | PATHOLOGY | | | | Borderline | | | | | | High: 150 - 199 | | | | | | | | | | | | High: 200 - 499 | | | | | | | | | | | | Very High: >=500 | | | | + + + + + + | HDL | 31 (L)Comment: | >40 mg/dL | [facility] | | | CHOLESTEROL | HDL Reference Range: | | DEPARTMENT | | | | High | | OF | | | | Risk: <40 | | PATHOLOGY | | | | Desirable: | | | | | | >=60 | | | | + + + + + + | LDL | 61 | <100 mg/dL | [facility] | | | CHOLESTEROL | | | DEPARTMENT | | | , | | | OF | | | CALCULATED | | | PATHOLOGY | | + + + + + + | VLDL | 23 | <31 mg/dL | [facility] | | | CHOLESTEROL | | | DEPARTMENT | | | , | | | OF | | | CALCULATED | | | PATHOLOGY | | + + + + + + | NON-HDL | 84Comment: non-HDL | <130 mg/dL | [facility] | | | CHOLESTEROL | Cholesterol Reference | | DEPARTMENT | | | | Range: | | OF | | | | Optimal: <130 | | PATHOLOGY | | | | Near | | | | | | Optimal: 130-159 | | | | | | Borderline | | | | | | High: 160-189 | | | | | | | | | | | | High: 190-209 | | | | | | Very | | | | | | High: >=210 | | | | + + + + + + + + | Specimen | + + | Blood - Blood | + + + + + + + | Performing | Address | City/State/Zipcode | Phone Number | | Organization | | | | + + + + + | [facility] | [address] | [place] [address] | | | PATHOLOGY | [address] | | | + + + + + documented in this encounter Visit Diagnoses + + | Diagnosis | + + | Stroke (HCC) - Primary Unspecified cerebral artery occlusion with cerebral infarction | + + documented in this encounter"
--- OUTSIDE RECORDS SUMMARY | ~2020-02-21 | XMS | Clinical Summary ---
Demographics + + + | Address | [address] | | | [place] [address] | + + + | Home Phone | | + + + | Preferred Language | Unknown | + + + | Marital Status | Single | + + + | Pentecostal Affiliation | NON | + + + | Race | White | + + + | Ethnic Group | Not or | + + + Author + + + | Author | [facility] | + + + | Organization | [facility] | + + + | Address | Unknown | + + + | Phone | Unavailable | + + + Support + + +---------+ + | Name | Relationship | Address | Phone | + + +---------+ + | Valerie Perales | ECON | Unknown | | + + +---------+ + Care Team Providers + +------+ + | Care Customer Service Sales Consultant Name | Role | Phone | + +------+ + | Stella Cuevas PA-C | PCP | | + +------+ + Source Comments [facility] is fully live on both [facility] Allergies No Known Allergies Medications + + + +---------+------+------+-------+ | Medication | Sig | Dispensed | Refills | Star | End | Statu | | | | | | t | Date | s | | | | | | Date | | | + + + +---------+------+------+-------+ | ranitidine 150 mg | Take 1 Tab by mouth | 30 Tab | 3 | 04/1 | | Activ | | Oral Tablet | two times daily. | | | 5/20 | | e | | | | | | 11 | | | + + + +---------+------+------+-------+ | clopidogrel 75 mg | Take 1 Tab by mouth | 30 Tab | 3 | 04/1 | | Activ | | Oral Tablet | once daily. | | | 520 | | e | | | | | | 11 | | | + + + +---------+------+------+-------+ | simvastatin 20 mg | Take 1 Tab by mouth | 90 Tab | 3 | 06/0 | | Activ | | Oral Tablet | once daily in the | | | 06/12 | | e | | | evening. | | | 12 | | | + + + +---------+------+------+-------+ | metFORMIN 500 mg | | | 0 | 10/2 | | Activ | | oral tablet | | | | 20 | | e | | | | | | 16 | | | + + + +---------+------+------+-------+ | lisinopril 20 mg | | | 0 | 12/2 | | Activ | | oral tablet | | | | 20 | | e | | | | | | 16 | | | + + + +---------+------+------+-------+ | CHANTIX STARTING | | | 0 | 04/24 | | Activ | | MONTH BOX 0.5 mg | | | | 7/20 | | e | | (11)- 1 mg (42) oral | | | | 16 | | | | tablets,dose pack | | | | | | | + + + +---------+------+------+-------+ Active Problems +---------+ + | Problem | Noted Date | +---------+ + | Stroke | 09/02/2010 | +---------+ + | Ataxia | 09/02/2010 | +---------+ + Social History + + + +--------+------+ | Tobacco Use | Types | Packs/Day | Years | Date | | | | | Used | | + + + +--------+------+ | Former Smoker | Cigarettes | 1 | 4 | | + + + +--------+------+ + +---+---+---+ | Smokeless Tobacco: | | | | | Never Used | | | | + +---+---+---+ + + | Tobacco Cessation: Counseling Given: Yes | + + + + +---------+ + | Alcohol Use | Drinks/Week | oz/Week | Comments | + + +---------+ + | Yes | | | once a month | + + +---------+ + + + + | Sex Assigned at | Date Recorded | | | | + + + | Not on file | | + + + Last Filed Vital Signs + + + + + | Vital Sign | Reading | Time Taken | Comments | + + + + + | Blood Pressure | 178/92 | 05/22/2016 10:21 AM | | | | | PST | | + + + + + | Pulse | 99 | 05/22/2016 10:21 AM | | | | | PST | | + + + + + | Temperature | 36.3 C (97.3 F) | 09/05/2010 8:19 AM | | | | | PDT | | + + + + + | Respiratory Rate | 20 | 09/05/2010 8:19 AM | | | | | PDT | | + + + + + | Oxygen Saturation | 94% | 05/22/2016 10:21 AM | | | | | PST | | + + + + + | Inhaled Oxygen | - | - | | | Concentration | | | | + + + + + | Weight | 101.4 kg (223 lb 9.6 | 05/22/2016 10:21 AM | | | | oz) | PST | | + + + + + | Height | 182.5 cm (5' 11.85") | 05/22/2016 10:21 AM | | | | | PST | | + + + + + | Body Mass Index | 30.45 | 05/22/2016 10:21 AM | | | | | PST | | + + + + + Plan of Treatment + + +-------+ + | Health Maintenance | Due Date | Last | Comments | | | | Done | | + + +-------+ + | Pneumococcal | | | | | vaccination (1 of 1 | 9 | | | | - PPSV23) | | | | + + +-------+ + | Influenza (Flu) | | | | | vaccination (#1) | 0 | | | + + +-------+ + Results Not on filefrom Last 3 Months Insurance + +--------+ +--------+ + +------+ | Payer | Benefi | Subscriber | Effect | Phone | Address | Type | | | t Plan | ID | melissa | | | | | | / | | Dates | | | | | | Group | | | | | | + +--------+ +--------+ + +------+ | [facility] | PROVID | [id number] | Effect | [phone] | [address] | PPO | | | ENCE | | melissa | [address] | [phone] | | | [address]ALTH | | for | | [place], | | | | | | all | | [place] [address] | | | | | | dates | | | | + +--------+ +--------+ + +------+ | [facility] | PROVID | [id number] | Effect | [phone] | [address] | PPO | | | ENCE | | melissa | 0 | [address] | | | | HEALTH | | for | | [place], | | | | | | all | | [place] [address] | | | | | | dates | | | | + +--------+ +--------+ + +------+ | [facility] | PROVID | [id number] | Effect | [phone] | [address] | PPO | | | ENCE | | melissa | 0 | [phone] | | | | HEALTH | | for | | [place], | | | | | | all | | [place] [address] | | | | | | dates | | | | + +--------+ +--------+ + +------+ + +--------+ +--------+ + + | Guarantor Name | Accoun | Relation to | Date | Phone | Billing Address | | | t Type | Patient | of | | | | | | | | | | + +--------+ +--------+ + + | Miles Sylvester | Person | Self [birth year] | | [address] | | | al/Fam | | 1955 | [phone] | [place] [address] | | | wili | | | 2 (Home) | | + +--------+ +--------+ + + | Miles Sylvester | Person | Self | [birth year] | | [address] | | | al/Fam | | 1955 | [phone] | [place] [address] | | | wili | | | 2 (Home) | | + +--------+ +--------+ + + | Miles Sylvester | Third | Self [birth year] | | [address] | | | [employer] | | [phone] | [place] [address] | | | Liabil | | | 2 (Home) | | | | ity | | | | | + +--------+ +--------+ + + Advance Directives + + + + + | Code Status | Date | Date | Comments | | | Activated | Inactivated | | + + + + + | Full Code | 09/02/2010 | 09/05/2010 | | | | 10:25 PM | 7:52 PM | | + + + + + + + + +---+ | | | | | + + + +---+ | Full Code | 09/02/2010 | 09/02/2010 | | | | 9:52 PM | 10:25 PM | | + + + +---+
--- OUTSIDE RECORDS SUMMARY | ~2020-02-21 | XMS | Encounter Summary ---
Demographics + + + | Address | [address] | | | [place] [address] | + + + | Home Phone | | + + + | Preferred Language | Unknown | + + + | Marital Status | Single | + + + | Rastafarian Affiliation | NON | + + + | Race | White | + + + | Ethnic Group | Not or | + + + Author + + + | Author | [facility] | + + + | Organization | [facility] | + + + | Address | Unknown | + + + | Phone | Unavailable | + + + Support + + +---------+ + | Name | Relationship | Address | Phone | + + +---------+ + | Valerie Perales | ECON | Unknown | | + + +---------+ + Care Team Providers + +------+ + | Care Operations Mgr Name | Role | Phone | + +------+ + | Stella Cuevas PA-C | PCP | | + +------+ + Encounter Details +--------+ + + + + | Date | Type | Department | Care Team | Description | +--------+ + + + + | 10/21/ | Ancillary | Laboratory at [facility] | | | | 2012 | Orders | [address] | | | | | | [address] [facility] | | | | | | [place], [address] [place] [address] | | | | | | [place], [place] | | | | | | [address] | | | | | | [phone] | | | +--------+ + + + + Social History + + + +--------+------+ | Tobacco Use | Types | Packs/Day | Years | Date | | | | | Used | | + + + +--------+------+ | Current Every Day | Cigarettes | 1 | 4 | | | Smoker | | | | | + + + +--------+------+ + [...]
--- OUTSIDE RECORDS SUMMARY | ~2020-02-21 | XMS | Encounter Summary ---
Demographics + + + | Address | [address] | | | [place] [address] | + + + | Home Phone | | + + + | Preferred Language | Unknown | + + + | Marital Status | Single | + + + | Latter-Day Affiliation | NON | + + + | Race | White | + + + | Ethnic Group | Not or | + + + Author + + + | Author | [facility] | + + + | Organization | [facility] | + + + | Address | Unknown | + + + | Phone | Unavailable | + + + Support + + +---------+ + | Name | Relationship | Address | Phone | + + +---------+ + | Valerie Perales | ECON | Unknown | | + + +---------+ + Care Team Providers + +------+ + | Care Editor Dictionary Name | Role | Phone | + +------+ + | Stella Cuevas PA-C | PCP | | + +------+ + Encounter Details +--------+ + + + + | Date | Type | Department | Care Team | Description | +--------+ + + + + | 04/07/ | Hospital | Dermatopathology | | | | 2015 | Encounter | [address] | | | | | | Mailcode: [id number] | | | | | | [facility] | | | | | | and Healing, | | | | | | [address], | | | | | | Floor [place], [place] | | | | | | [address] | | | | | | [phone] | | | +--------+ + + + [...] + + +---------+ + + | clopidogrel 75 mg | Take 1 Tab by mouth | 30 Tab | 3 | 09/06/19 | | | Oral Tablet | once daily. | | | 11 | | + + + +---------+ + + | metFORMIN 500 mg | | | 0 | 03/13/20 | | | oral tablet | | | | 16 | | + + + +---------+ + + | ranitidine 150 mg | Take 1 Tab by mouth | 30 Tab | 3 | 09/06/19 | | | Oral Tablet | two times daily. | | | 11 | | + + + +---------+ + + | simvastatin 20 mg | Take 1 Tab by mouth | 90 Tab | 3 | 10/23/19 | | | Oral Tablet | once daily in the | | | 12 | | | | evening. | | | | | + + + +---------+ + + documented as of this encounter Plan of Treatment Not on filedocumented as of this encounter Procedures + +--------+ + + + | Procedure Name | Priori | Date/Time | Associated Diagnosis | Comments | | | ty | | | | + +--------+ + + + | DERM PATHOLOGY | Routin | 04/07/2016 | Other melanin | Results for this | | | e | | hyperpigmentation | procedure are in the | | | | | Other follicular | results section. | | | | | cysts of the skin | | | | | | and subcutaneous | | | | | | tissue Other skin | | | | | | changes due to | | | | | | chronic exposure to | | | | | | nonionizing | | | | | | radiation Neoplasm | | | | | | of uncertain | | | | | | behavior of skin | | | | | | Viral wart Squamous | | | | | | cell carcinoma of | | | | | | skin of right lower | | | | | | limb, including hip | | + +--------+ + + + documented in this encounter Results DERM PATHOLOGY (04/07/2016) + + + + + + | Component | Value | Ref Range | Performed | Pathologist | | | | | At | Signature | + + + + + + | DERMATOPATH | SOURCE OF SPECIMEN:A Lt. | | [facility] | | | OLOGY(WET | neck anterior, shave | | DERMATOPATH | | | MNT) | biopsySOURCE OF | | OLOGY | | | | SPECIMEN:B Lt. neck | | | | | | posterior shave | | | | | | biopsySOURCE OF | | | | | | SPECIMEN:C Lt. back, | | | | | | shave biopsySOURCE OF | | | | | | SPECIMEN:D Lt. fourth | | | | | | finger, shave | | | | | | biopsySOURCE OF | | | | | | SPECIMEN:E Rt. popliteal | | | | | | fossa, shave biopsy | | | | | | CLINICAL | | | | | | DESCRIPTION:A: 3 mm | | | | | | black macule; nevus; r/o | | | | | | MM vs BCC.B: 1.2 cm | | | | | | shiny plaque; white | | | | | | macule with surrounding | | | | | | shaggy border; BCC vscar | | | | | | v adnexal neoplasm.C: 8 | | | | | | mm pedunculated papule; | | | | | | SCC vs SK vs nevus.D: 1 | | | | | | cm pink exophytic | | | | | | papule- acquired digital | | | | | | fibrokeratoma vs | | | | | | wart.E: 8 mm pink | | | | | | keratotic papule; SCC vs | | | | | | ISK. GROSS | | | | | | DESCRIPTION:Received in | | | | | | formalin are five | | | | | | specimens labeled | | | | | | Miles Sylvester:A: | | | | | | Specimen is labeled "L | | | | | | neck anterior" and | | | | | | consists of an irregular | | | | | | shaveof patchy | | | | | | alqmy-etm-murix skin, | | | | | | [id number]. The surgical | | | | | | margin is inkedblack; | | | | | | the tissue is bisected, | | | | | | and entirely submitted | | | | | | in cassette A1.B: | | | | | | Specimen is labeled "L | | | | | | neck posterior" and | | | | | | consists of an | | | | | | irregularshave of | | | | | | papular white-ndiaye skin, | | | | | | [id number]. The surgical | | | | | | margin is inkedblack; | | | | | | the tissue is bisected, | | | | | | and entirely submitted | | | | | | in cassette B1.C: | | | | | | Specimen is labeled | | | | | | "Left back" and consists | | | | | | of an irregular shave | | | | | | ofscaly papular | | | | | | lpdqh-cca-isicn skin, | | | | | | [id number]. The surgical | | | | | | margin is inkedblack; | | | | | | the tissue is bisected, | | | | | | and entirely submitted | | | | | | in cassette C1.D: | | | | | | Specimen is labeled "L | | | | | | fourth finger" and | | | | | | consists of an irregular | | | | | | shaveof firm papular | | | | | | white-ndiaye skin, [id number]. | | | | | | The surgical margin is | | | | | | inkedblack; the tissue | | | | | | is bisected, and | | | | | | entirely submitted in | | | | | | cassette D1.E: Specimen | | | | | | is labeled "R popliteal | | | | | | fossa" and consists of | | | | | | an irregularshave of | | | | | | papular white-ndiaye skin, | | | | | | [id number]. The surgical | | | | | | margin is inkedblack; | | | | | | the tissue is bisected, | | | | | | and entirely submitted | | | | | | in cassette E1. | | | | | | MICROSCOPIC | | | | | | DESCRIPTION:In the A | | | | | | specimen there is slight | | | | | | hyperplasia of the rete | | | | | | ridges | | | | | | withhyperpigmentation | | | | | | along the basal layer | | | | | | and marked solar | | | | | | elastosis. In the | | | | | | B specimen, there is | | | | | | basketweave | | | | | | hyperkeratosis, | | | | | | overlying a | | | | | | dilatedfollicular | | | | | | infundibulum, adjacent | | | | | | to which is epidermal | | | | | | hyperplasia, andmarked | | | | | | solar elastosis. | | | | | | In the C specimen, there | | | | | | is digitated epidermal | | | | | | hyperplasia, and | | | | | | centrally,a markedly | | | | | | dilated follicular | | | | | | infundibulum filled with | | | | | | parakeratosis. Thereis | | | | | | adjacent fibrosis, and a | | | | | | moderately dense | | | | | | lymphocytic infiltrate. | | | | | | Mostof the keratinocytic | | | | | | nuclei are moderately | | | | | | large, and round to | | | | | | oval, andsome of the | | | | | | cells contain moderately | | | | | | increased amounts of | | | | | | eosinophiliccytoplasm. | | | | | | In the D specimen | | | | | | there is digitate | | | | | | epidermal hyperplasia | | | | | | with arborizationof the | | | | | | peripheral rete, dilated | | | | | | blood vessels within | | | | | | the dermal papillae,and | | | | | | parakeratosis. In | | | | | | the E specimen there is | | | | | | an asymmetric, poorly | | | | | | circumscribed | | | | | | neoplasmcharacterized by | | | | | | irregularly sized | | | | | | aggregates of atypical | | | | | | epithelial cellswithin | | | | | | the dermis. The | | | | | | epithelial cell nuclei | | | | | | are pleomorphic | | | | | | andhyperchromatic and | | | | | | most of the cells have | | | | | | eosinophilic cytoplasm. | | | | | | DIAGNOSIS:A: SOLAR | | | | | | LENTIGO. B: | | | | | | DILATED FOLLICULAR | | | | | | INFUNDIBULUM WITH MARKED | | | | | | SOLAR ELASTOSIS. | | | | | | NOTE: From the clinical | | | | | | description, the changes | | | | | | suggest either | | | | | | FOLLICULARCYST or | | | | | | NODULAR SOLAR ELASTOSIS | | | | | | WITH CYSTS AND COMEDONES | | | | | | (FAVRE | | | | | | | | | | | | RACOUCHOT). C: | | | | | | ATYPICAL | | | | | | INFUNDIBULOCYSTIC | | | | | | KERATINOCYTIC | | | | | | PROLIFERATION. | | | | | | NOTE: Interpretation is | | | | | | challenging, without | | | | | | deeper portions of | | | | | | thefollicular structure | | | | | | present for review. | | | | | | INFLAMED SEBORRHEIC | | | | | | KERATOSIS witha | | | | | | centrally ruptured | | | | | | follicle/cyst is | | | | | | possible, although it is | | | | | | difficult toentirely | | | | | | exclude underlying | | | | | | squamous cell carcinoma. | | | | | | Additional biopsy | | | | | | ortreatment of the area | | | | | | is recommended. D: | | | | | | VERRUCA VULGARIS. | | | | | | E: SQUAMOUS CELL | | | | | | CARCINOMA. NOTE: | | | | | | The squamous cell | | | | | | carcinoma extends to the | | | | | | specimen base. | | | | | | KPW: [id number] | | | | | | My electronic | | | | | | signature indicates that | | | | | | I have personally | | | | | | reviewed alldiagnostic | | | | | | slides, the gross and/or | | | | | | microscopic portion of | | | | | | thisreport and | | | | | | formulated the final | | | | | | diagnosis. | | | | | | Rendering Diagnostician: | | | | | | Miguel Rojas | | | | | | Joanie | | | | | | mirna Signed 04/20/2016 | | | | | | 12:12PM | | | | + + + [...] + + + + + | [facility] | Mailcode [id number] | [place] [address] | | | DERMATOPATHOLOGY | [address] | | | + + + + + | [facility] | Mailcode [id number] | [place] [address] | | | DERMATOPATHOLOGY | [address] | | | + + + + + documented in this encounter Visit Diagnoses + + | Diagnosis | + + | Other melanin hyperpigmentation | + + | Other follicular cysts of the skin and subcutaneous tissue | + + | Other skin changes due to chronic exposure to nonionizing radiation | + + | Neoplasm of uncertain behavior of skin | + + | Viral wart Viral warts, unspecified | + + | 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
--- OUTSIDE RECORDS SUMMARY | ~2020-02-21 | XMS | Encounter Summary ---
Demographics + + + | Address | [address] | | | [place] [address] | + + + | Home Phone | | + + + | Preferred Language | Unknown | + + + | Marital Status | Unknown | + + + | Jehovah'S Witness Affiliation | Unknown | + + + | Race | White | + + + | Ethnic Group | Not or | + + + Author + + + | Author | [facility] | | | and [place] | + + + | Organization | [facility] | | | and [place] | + + + | Address | Unknown | + + + | Phone | Unavailable | + + + Support + + + + + | Name | Relationship | Address | Phone | + + + + + | Valerie Perales | E[place] | [address] | | | | | [address] | | | | | [address] | | + + + + + Care Team Providers + +------+ + | Care Civil Structural Engineer Name | Role | Phone | + +------+ + PCP | Unavailable | + +------+ + Reason for Referral Evaluate & Treat (Routine) +--------+ + + + + + | Status | Reason | Specialty | Diagnoses / | Referred By | Referred To | | | | | Procedures | Contact | Contact | +--------+ + + + + + | Closed | Specialty | Cardiac | Diagnoses | Alqaisi, | [facility] | | | Services | Rehabilitatio | S/P drug | MD Gary | Pulmonary | | | Required | n | eluting | [address] | | | | | coronary | [address] | [place] | | | | | stent | [place], | [place], [place] | | | | | placement | [place] [address] | [address] | | | | | Procedures | Phone: | Phone: | | | | | CARDIAC | [phone] | [phone] | | | | | REHAB | Fax: | Fax: | | | | | | [phone] | [phone] | +--------+ + + + + + Reason for Visit Auth/Cert +--------+--------+ + + + + | Status | Reason | Specialty | Diagnoses / | Referred By | Referred To | | | | | Procedures | Contact | Contact | +--------+--------+ + + + + | | | | Diagnoses | | Alqaisi, | | | | | STEMI (ST | | MD Gary | | | | | elevation | | [address] | | | | | myocardial | | DR | | | | | infarction) | | [place], [place] | | | | | ([facility]) stemi | | [address] Phone: | | | | | Procedures | | [phone] | | | | | . | | Fax: | | | | | | | [phone] | +--------+--------+ + + + + Encounter Details +--------+ + + + + | Date | Type | Department | Care Team | Description | +--------+ + + + + | 11/08/ | Hospital | [facility] | Gary Avery MD | S/P drug eluting | | 2019 - | Encounter | [facility] | [address] | coronary stent | | | | [address] | [place] [address] | placement (Primary | | 11/10/ | | [place], [place] | [phone] | Dx); ST elevation | | 2019 | | [address] | | myocardial | | | | [phone] | | infarction (STEMI) | | | | | | of inferior wall | | | | | | ([facility]) | +--------+ + + + + Social [...] + +---+---+---+ + + | Tobacco Cessation: Ready to Quit: Yes; Counseling Given: Yes | | Comments: Nicotine patch | + + + + +---------+ + [...] + + + | Blood Pressure | 126/71 | 11/11/2019 7:56 AM | | | | | PDT | | + + + + + | Pulse | 70 | 11/11/2019 7:56 AM | | | | | PDT | | + + + + + | Temperature | 36.9 C (98.5 F) | 11/11/2019 7:56 AM | | | | | PDT | | + + + + + | Respiratory Rate | 22 | 11/11/2019 7:56 AM | | | | | PDT | | + + + + + | Oxygen Saturation | 93% | 11/11/2019 7:56 AM | | | | | PDT | | + + + + + | Inhaled Oxygen | - | - | | | Concentration | | | | + + + + + | Weight | 92.5 kg (204 lb) | 11/09/2019 3:03 PM | | | | | PDT | | + + + + + | Height | 182.9 cm (6') | 11/09/2019 3:03 PM | | | | | PDT | | + + + + + | Body Mass Index | 27.67 | 11/09/2019 3:03 PM | | | | | PDT | [...] documented as of this encounter Discharge Summaries Areli Cook MD - 11/11/2019 8:32 AM PDTFormatting of this note might be different f rom the original. Admission date: 11/09/2019. Discharge date: 11/11/2019. Procedure: S/p emergent left heart catheterization in the setting of inferior ST elevation NC. Angiop lasty of the right AV groove artery and PCI with 2.5 x 24 mm Synergy stent. Hospital course: Patient is 64-year-old male who presented to the hospital with chest pain on 08 November second leny to chest pain was found to have inferior ST elevation NC. Was taken urgently to heart c atheterization lab and PCI to AV groove artery was performed. Was monitored for 48 hours no events were noted. Was also found to have severe disease in bifurcating LAD diagonal branches severe disease i n the OM branch. Cardiothoracic surgery evaluation was recommended. Patient currently chest pain-free ambulating. Scheduled Meds: aspirin 81 mg Oral Daily atorvaSTATin 80 mg Oral Nightly clopidogrel 75 mg Oral Daily insulin lispro 1-7 Units Subcutaneous Nightly insulin lispro 2-14 Units Subcutaneous TID WC lisinopril 10 mg Oral Daily metoprolol succinate 50 mg Oral Daily Continuous Infusions: dextrose 10% PRN Meds:.acetaminophen, aluminum & magnesium hydroxide-simethicone, Hypoglycemia Managemen t AND POCT Glucose AND dextrose AND dextrose 10%, lidocaine 1%-EPINEPHrine 1:100 ,000, LORazepam, nicotine, nitroglycerin, ondansetron, oxyCODONE, zolpidem Vitals: 11/11/19 0756 BP: 126/71 Pulse: 70 Resp: 22 Temp: 36.9 C (98.5 F) General: No distress, ambulating. Cardiac: S1-S2 regular rate and rhythm. Lungs: Clear to auscultation bilaterally no wheezing. Abdomen: Soft nontender nondistended. Extremities: No lower extremity edema. Neuro: Awake alert oriented no focal deficit. Plan: Patient will continue on dual antiplatelet therapy at this time with aspirin and clopidogre l. Was started on high intensity atorvastatin 80 mg p.o. daily. Started on metoprolol succinate and lisinopril. Cardiac thoracic surgery consultation recommended for LAD diagonal and OM stenoses. Smoking cessation counseling was held. Patient will follow-up as an outpatient in 1 week. Cardiac rehabilitation after discussion in regard to his other coronary arteries. documented in this encounter Discharge Instructions Instructions Marsha Lund RN - 11/11/2019 Eating Heart-Healthy Foods Eating has a big impact on your heart health. In fact, eating healthier can improve several of your heart risks at once. For instance, it helps you manage weight, cholesterol, and blo od pressure. Here are ideas to help you make heart-healthy changes without giving up allth e foods and flavors you love. Getting started Talk with your healthcare provider about eating plans, such as the DASH or Mediterranean diet. You may also be referred to a dietitian. Change a few things at a time. Give yourself time to get used to a few eating changes be fore adding more. Work to create a tasty, healthy eating plan that you can stick to for the rest of your l navneet. Goals for healthy eating Below are some tips to improve your eating habits: Limit saturated fats and trans fats. Saturated fats raise your levels of cholesterol, so keep these fats to a minimum. They are found in foods such as fatty meats, whole milk, rivas se, and palm and coconut oils. Avoid trans fats because they lower good cholesterol as well as raise bad cholesterol. Trans fats are most often found in processed foods. Reduce sodium (salt) intake. Eating too much salt may increase your blood pressure. Limi t your sodium intake to 2,300 milligrams (mg) per day(the amount in 1 teaspoon of salt), o r less if your healthcare provider recommends it. Dining out less often and eating fewer pro cessed foods are two great ways to decrease the amount of salt you consume. Managing calories. A calorie is a unit of energy. Your body johnston calories for fuel, but if you eat more calories than your body johnston, the extras are stored as fat. Your healthcar e provider can help you create a diet plan to manage your calories. This will likely include eating healthier foods as well as exercising regularly. To help you track your progress, ke ep a diary to record what you eat and how often you exercise. Choose the right foods Aim to make these foods philip of your diet. If you have diabetes, you may have different recommendations than what is listed here: Fruits and vegetables provide plenty of nutrients without a lot of calories. At meals, f ill half your plate with these foods. Split the other half of your plate between whole grain s and lean protein. Whole grains are high in fiber and rich in vitamins and nutrients. Good choices include whole-wheat bread, pasta, and brown rice. Lean proteins give you nutrition with less fat. Good choices include fish, skinless chic evelyn, and beans. Low-fat or nonfat dairy provides nutrients without a lot of fat. Try low-fat or nonfat m ilk, cheese, or yogurt. Healthy fats can be good for you in small amounts. These are unsaturated fats, such as o live oil, nuts, and fish. Try to have at least 2 servings per week of fatty fish, such as sa lmon, sardines, mackerel, rainbow trout, and albacore tuna. These contain omega-3 fatty acid s, which are good for your heart. Flaxseed is another source of a heart-healthy fat. More on heart-healthy eating Read food labels Healthy eating starts at the grocery store. Be sure to pay attention to food labels on pack aged foods. Look for products that are high in fiber and protein, and low in saturated fat, cholesterol, and sodium. Avoid products that contain trans fat. And pay close attention to s erving size. For instance, if you plan to eat two servings, double all the numbers on the la bel. Prepare food right A loera part of healthy cooking is cutting down on added fat and salt. Look on the internet f or lower-fat, lower-sodium recipes. Also, try these tips: Remove fat from meat and skin from poultry before cooking. Skim fat from the surface of soups and sauces. Broil, boil, bake, steam, grill, and microwave food without added fats. Choose ingredients that spice up your food without adding calories, fat, or sodium. Try these items: horseradish, hot sauce, lemon, mustard, nonfat salad dressings, and vinegar. Fo r salt-free herbs and spices, try basil, cilantro, cinnamon, pepper, and giancarlo. [employer] last reviewed this educational content on 02/21/201719993399-3885 [employer]. [address] [place] [address], [place] [address]. All righ ts reserved. This information is not intended as a substitute for professional medical care. Always follow your healthcare professional's instructions. documented in this encounter Medications at Time [...] + + + +---------+ + + | nicotine | Place 1 patch onto | 30 | 0 | 11/10/19 | | | (NICODERM) 21 mg/24 | the skin Daily as | patch | | 20 | 0 | | hr | needed for Nicotine | | | | | | | Craving | | | | | + + [...] documented as of this encounter Progress Notes Yuli Rich RN - 11/11/2019 2:23 AM PDTPt remains independent in the room. R radial is clean and soft. Pt denies any chest pain. NSR, VS stable and on RA. All questions addressed and hourly rounding uneventful. Troponin trending down. Chart check complete. Yuli Rich RN Marsha Jordan RN - 11/10/2019 3:59 PM PDTPatient has had no complaints, is independent in the room, placed o n telebox. Remains NS w/ HR 60s-80s, BP 110s-130s systolic. Will continue to monitor. R wrist site, dressing CDI, no hematoma. Critical Troponin 8.149, notified, no new orders, expected finding. [facility] tomorrow. Chart check complete. P Gary Piña MD - 11/10/2019 8:50 AM PDT [facility] Service: Cardiology Progress Note Name of Wire Weaver: Gary Avery MD I have seen the patient on 11/10/2019 SUBJECTIVE Status post emergent left heart catheterization and angioplasty for the right AV groove art юлия. He feels well. No recurrence of chest pain. Blood pressure and heart rate are well controlled. Low HDL. Medications were reviewed. OBJECTIVE Vital Signs: BP 119/56 | Pulse 66 | Temp 37 C (98.6 F) (Oral) | Resp 19 | Ht 1.829 m (6') | Wt 92.5 kg (204 lb) | SpO2 97% | BMI 27.67 kg/m Cardiovascular: Regular rhythm, S1 normal and S2 normal. No murmur heard. Pulses: Radial pulses are 2+ on the right side, and 2+ on the left side. Pulmonary/Chest: Effort normal and breath sounds normal. No wheezes. No rales. Abdominal: Soft. No tenderness. Musculoskeletal: No edema. Neurological: Alert. No cranial nerve deficit. Skin: Warm and dry. DATA Recent Labs Lab 11/10/19 0530 NA 136 K 4.2 CO2 22* BUN 13 CALCIUM 8.8 Recent Labs Lab 11/10/19 0530 WBC 10.58 HGB 14.1 HCT 42.8 MCV 89.0 PLT 299 EKG: November 10, 2019, reviewed personally on November 10, 2019. Normal ECG. Sinus rhythm, heart rate 67. November 09, 2019, reviewed personally on November 09, 2019. Sinus rhythm, heart rate 70, normal a xis, normal P wave and MD interval, inferior ST elevation. Last Echo: November 10, 2019. EF 60 to 65%. Mild concentric left ventricular hypertrophy. Moderate hypo kinesia of the basal to mid inferolateral wall and basal inferior wall. No significant valv ular disorders. Last stress test: Last cath: November 09, 2019. Three-vessel disease, including bifurcating proximal LAD. 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 Angioplasty for the right AV gr oove artery with a Synergy 2.5 x 24 mm. Carotid US: AAA screening: Lower extremity US: OTHERS: ASSESSMENT & PLAN Miles Sylvester is 64 y.o. gentleman with the following medical conditions: 1. Hypertension 2. Diabetes, on oral hypoglycemic medications 3. Stroke, 2013, for recovery 4. Current smoker, 1 pack every day. Presented on November 09, 2019 with acute onset of chest pain. Found to have inferior STEMI. Impression Inferior STEMI Diabetes Current smoker. Underwent emergent left heart catheterization showing three-vessel disease. Angioplasty fo r the right AV groove artery with synergy 2.5 x 24 mm. Recommendations Aspirin 81 mg, clopidogrel 75 mg High intensity statins, atorvastatin 80 mg. Low-dose lisinopril and metoprolol succinate. Consult cardiothoracic surgery for consideration of bypass surgery to the LAD, diagonal and obtuse marginal versus angioplasty with bifurcating stents for the LAD/diagonal and distal LAD. Continue insulin sliding scale. Continue nicotine patch. Code Status: Full Code Gary Avery MD 11/10/2019 Teresa Krishnamurthy RN - 0 11/10/2019 6:29 AM PDTTR band removed at 2200 site c/d/i and remained soft throughout this s hift. No acute changes overnight. All needs met at this time. Teresa Pena RN docume nted in this encounter H&P Notes Gary Avery MD - 11/09/2019 3:31 PM PDT [facility] Service: Cardiology History & Physical Name of Admitting Physician: Gary Avery MD Date of Admission: 11/09/2019 CHIEF COMPLAINT: Chest pain for 1 hour HISTORY OF PRESENT ILLNESS: Miles Sylvester is 64 y.o. gentleman who presented to the emergency room in [facility] complaining of acute onset of chest pain for 1 hour, in the center, no radiation, ass ociated with difficulty breathing, no specific precipitating factors. He had another episode on Wednesday that lasted in the evening. He went to urgent care the ne morning and he said he was given pain medication. Upon presentation to the ER, he was identified as inferior STEMI. He was given aspirin, cl opidogrel and IV heparin and transferred to our hospital. When I met him in the [facility], he was chest pain-free. REVIEW OF SYSTEMS Negative except for pertinent items noted in HPI. Review of Systems Constitutional: Negative for fatigue. HENT: Negative for nosebleeds. Eyes: Negative for visual disturbance. Respiratory: Negative for cough. Shortness of breath. Cardiovascular: Chest pain. No palpitations and leg swelling. Gastrointestinal: Negative for nausea, vomiting, abdominal pain and blood in stool. Genitourinary: Negative for hematuria. Musculoskeletal: Negative for myalgias, back pain and arthralgias. Skin: Negative for color change. Neurological: Negative for dizziness, syncope and numbness. Hematological: Does not bruise/bleed easily. Psychiatric/Behavioral: The patient is not nervous/anxious. PAST MEDICAL & SURGICAL HISTORY Hypertension Diabetes, on oral hypoglycemic medications Stroke, 7 years ago, for recovery No past surgical history on file. MEDICATIONS Home Medications No medications prior to admission. Allergies No Known Allergies FAMILY HISTORY No family history of premature coronary artery disease. SOCIAL HISTORY Social History Socioeconomic History Marital status: Not on file Spouse name: Not on file Number of children: Not on file Years of education: Not on file Highest education level: Not on file Occupational History Not on file Social Needs Financial resource strain: Not on file Food insecurity Worry: Not on file Inability: Not on file Transportation needs Medical: Not on file Non-medical: Not on file Tobacco Use Smoking status: Current Every Day Smoker Smokeless tobacco: Never Used Substance and Sexual Activity Alcohol use: Not Currently Drug use: Never Sexual activity: Not Currently Lifestyle Physical activity Days per week: Not on file Minutes per session: Not on file Stress: Not on file Relationships Social connections Talks on phone: Not on file Gets together: Not on file Attends uatsdin service: Not on file Active member of [...] Not on file PHYSICAL EXAM Vital Signs: Ht 1.829 m (6') | Wt 92.5 kg (204 lb) | BMI 27.67 kg/m Constitutional: Well-developed. Neck: No JVD present. No thyromegaly present. Cardiovascular: Regular rhythm, S1 normal and S2 normal. No murmur heard. Pulses: Carotid pulses are 2+ on the right side, and 2+ on the left side. Radial pulses are 2+ on the right side, and 2+ on the left side. Pulmonary/Chest: Effort normal and breath sounds normal. No wheezes. No rales. Abdominal: Soft. No tenderness. Musculoskeletal: No edema. Neurological: Alert. No cranial nerve deficit. Skin: Warm and dry. DATA No results for input(s): NA, K, CO2, BUN, CREATININE, GLUCOSE, CALCIUM, MG in the last 168 hours. No results for input(s): CKMB in the last 168 hours. Invalid input(s): CKTOTAL, CKMBINDEX, TROPONINI No results for input(s): WBC, HGB, HCT, MCV, PLT in the last 168 hours. EKG: November 09, 2019, reviewed personally on November 09, 2019. Sinus rhythm, heart rate 70, normal a xis, normal P wave and MD interval, inferior ST elevation. Last Echo: Last stress test: Last cath: Carotid US: AAA screening: Lower extremity US: OTHERS: ASSESSMENT & PLAN Miles Sylvester is 64 y.o. gentleman with the following medical conditions: Hypertension Diabetes, on oral hypoglycemic medications Stroke, 2012, for recovery Current smoker, 1 pack every day. Presented on November 09, 2019 with acute onset of chest pain. Found to have inferior STEMI. Impression Inferior STEMI Diabetes Current smoker. Recommendations Emergent left heart catheterization with primary angioplasty. I emphasized the importance of smoking cessation. He will be given nicotine patch. Start insulin sliding scale. High intensity statin. He will be admitted to the inpatient unit post heart catheterization. Code Status: No Order Primary Care Physician: No primary care provider on file. Gary Avery MD 11/09/2019 documented in this enco unter Miscellaneous Notes Plan of Care - Marsha Lund RN - 11/11/2019 9:36 AM PDTPatient adequate for discharg e. VS stable. Patient has no c/o pain. Patient's meds were delivered bedside yesterday, v erified all medications in bag. Patient educated on discharge instructions including follow -up appointments, answered all questions, awaiting ride arrival, will be escorted downstairs , and transported home via friend. Chart check complete. Problem: Adult Inpatient Plan of Care Goal: Plan of Care Review Outcome: Met Goal: Patient-Specific Goal Outcome: Met Goal: Absence of Hospital-Acquired Illness or Injury Outcome: Met Goal: Optimal Comfort and Wellbeing Outcome: Met Goal: Readiness for Transition of Care Outcome: Met Goal: Rounds/Family Conference Outcome: Met Problem: Fall Injury Risk Goal: Absence of Fall and Fall-Related Injury Outcome: Met Problem: Adjustment to Illness (Acute Coronary Syndrome) Goal: Optimal Adaptation to Illness Outcome: Met Problem: Arrhythmia (Acute Coronary Syndrome) Goal: Normalized Cardiac Rhythm Outcome: Met Problem: Hemodynamic Instability (Acute Coronary Syndrome) Goal: Effective Cardiac Pump Function Outcome: Met Problem: Tissue Perfusion (Acute Coronary Syndrome) Goal: Adequate Tissue Perfusion Outcome: Met lan of Care - Teresa Marquez RN - 11/10/2019 8:00 PM PDT Problem: Adult Inpatient Plan of Care Goal: Plan of Care Review Outcome: Ongoing, progressing Problem: Fall Injury Risk Goal: Absence of Fall and Fall-Related Injury Outcome: Ongoing, progressing Hourly rounding throughout this shift, call light within reach at all times, bed in lowest position, and non slip socks on at all times while ambulating. lan of Care - Mehrdad Cohen MSW - 11/10/2019 4: 54 PM PDTCare Management Initial Assessment Readmission Risk: Medium Status Prior to Admission or Illness Arrival From: admitted as an inpatient Lives With: alone Living Arrangements: house Caregiver For: no one Functional Status: Independent Caregiving Concerns: none Home Accessibility: no concerns Transportation Available: family or friend will provide Able to return to prior living: Yes Care Management Concerns Readmission Within Last 30 Days: no previous admission in last 30 days PCP: No primary care provider on file. - Goes to [facility] Physician Francisco Rushing Contact Information Family Contact Information: Name: Kingsley Sylvester - Pt son in [facility] [place] Needs Assessment Current Outpt/Agency/Support Groups: none Community Agency Name: none Anticipated Changes Related to Illness: none Concerns to be Addressed: no discharge needs identified Services Anticipated at Discharge: none Equipment Used at Home: none Equipment Needed after Discharge: none Durable Medical Equipment Provider: none Pharmacy/Medication Needs: other (see comments)(already [facility]) Transportation Needs: Initial Plan Anticipated Discharge Disposition: home Expected DC Date: WednesdayNovember 10 Steps Taken Toward Discharge: intial assessment Next Steps: continue to follow for discharge planning Notes: Pt will be returning home, assisted Pt with POA paperwork and encouraged finding someone th at has his best interests at heart for POA for Healthcare and Financial as Dr. Cr is co nsulted and may have CT surgery in the soon after discharge. 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 Electronically signed: LAURA AVENDAÑO 11/10/2019 4:54 PM PDT lan of Care - Marsha Lund RN - 11/10/2019 3:00 PM PDT Problem: Fall Injury Risk Goal: Absence of Fall and Fall-Related Injury Outcome: Ongoing, progressing Patient is steady on his feet, provided with a telebox, calls appropriately. Problem: Pain (Acute Coronary Syndrome) Goal: Absence of Cardiac-Related Pain Outcome: Met Patient has had no c/o pain, has been educated on letting this RN know should any pain windy se, will continue to monitor. 3: 03 PM PDTPlan of Care - Teresa Toribio RN - 11/09/2019 10:17 PM PDT Problem: Adult Inpatient Plan of Care Goal: Plan of Care Review Outcome: Ongoing, progressing Problem: Fall Injury Risk Goal: Absence of Fall and Fall-Related Injury Outcome: Ongoing, progressing Call light within reach at all times. Patient educated on how to use call light when neede d. Non slip socks on at all times. Will continue to do hourly rounding throughout shift. Problem: Pain (Acute Coronary Syndrome) Goal: Absence of Cardiac-Related Pain Outcome: Ongoing, progressing Patient reports no pain at this time will continue to monitor. lan of Inocente - Anabel Nance RN - 0 6:20 PM PDT Problem: Pain (Acute Coronary Syndrome) Goal: Absence of Cardiac-Related Pain Outcome: Ongoing, progressing Pt reports mild CP but is tolerable. VS stable. TR band in place. R wrist site is clean, dry and soft without hematoma. Hourly r ounding uneventful otherwise. Chart check complete. Anabel Nance RN documented in this encounter Plan of Treatment + + +--------+ + + | Name | Type | Priori | Associated Diagnoses | Order Schedule | | | | ty | | | + + +--------+ + + | Ambulatory Referral | Outpatient | Routin | S/P drug eluting | Ordered: 11/10/2019 | | Cardiac Rehab | Referral | e | coronary stent | | | | | | placement | | + + +--------+ + + documented as of this encounter Procedures + +--------+ + + + | Procedure Name | Priori | Date/Time | Associated Diagnosis | Comments | | | ty | | | | + +--------+ + + + | ARRHYTHMIA MONITOR - | | 11/12/2019 | | Results for this | | EXTERNAL SCAN | | 12:00 AM | | procedure are in the | | | | PDT | | results section. | + +--------+ + + + | POC GLUCOSE (NON | Routin | 11/11/2019 | | Results for this | | ORD) | e | 8:24 AM | | procedure are in the | | | | PDT | | results section. | + +--------+ + + + | TROPONIN I | Routin | 11/11/2019 | | Results for this | | | e | 5:37 AM | | procedure are in the | | | | PDT | | results section. | + +--------+ + + + | CBC NO DIFFERENTIAL | Routin | 11/11/2019 | | Results for this | | | e | 5:37 AM | | procedure are in the | | | | PDT | | results section. | + +--------+ + + + | COMPREHENSIVE | Routin | 11/11/2019 | | Results for this | | METABOLIC PANEL | e | 5:37 AM | | procedure are in the | | | | PDT | | results section. | + +--------+ + + + | POC GLUCOSE (NON | Routin | 11/10/2019 | | Results for this | | ORD) | e | 9:49 PM | | procedure are in the | | | | PDT | | results section. | + +--------+ + + + | POC GLUCOSE (NON | Routin | 11/10/2019 | | Results for this | | ORD) | e | 4:12 PM | | procedure are in the | | | | PDT | | results section. | + +--------+ + + + | POC GLUCOSE (NON | Routin | 11/10/2019 | | Results for this | | ORD) | e | 11:38 AM | | procedure are in the | | | | PDT | | results section. | + +--------+ + + + | POC GLUCOSE (NON | Routin | 11/10/2019 | | Results for this | | ORD) | e | 8:29 AM | | procedure are in the | | | | PDT | | results section. | + +--------+ + + + | ECHO COMPLETE | Routin | 11/10/2019 | | Results for this | | | e | 7:50 AM | | procedure are in the | | | | PDT | | results section. | + +--------+ + + + | LIPID PANEL | Routin | 11/10/2019 | | Results for this | | | e | 5:30 AM | | procedure are in the | | | | PDT | | results section. | + +--------+ + + + | TROPONIN I | Add-On | 11/10/2019 | | Results for this | | | | 5:30 AM | | procedure are in the | | | | PDT | | results section. | + +--------+ + + + | CBC NO DIFFERENTIAL | Routin | 11/10/2019 | | Results for this | | | e | 5:30 AM | | procedure are in the | | | | PDT | | results section. | + +--------+ + + + | HEMOGLOBIN A1C | Routin | 11/10/2019 | | Results for this | | | e | 5:30 AM | | procedure are in the | | | | PDT | | results section. | + +--------+ + + + | CK TOTAL | Routin | 11/10/2019 | | Results for this | | | e | 5:30 AM | | procedure are in the | | | | PDT | | results section. | + +--------+ + + + | BASIC METABOLIC | Routin | 11/10/2019 | | Results for this | | PANEL | e | 5:30 AM | | procedure are in the | | | | PDT | | results section. | + +--------+ + + + | ECG 12 LEAD | Routin | 11/10/2019 | | Results for this | | | e | 5:09 AM | | procedure are in the | | | | PDT | | results section. | + +--------+ + + + | POC GLUCOSE (NON | Routin | 11/09/2019 | | Results for this | | ORD) | e | 9:29 PM | | procedure are in the | | | | PDT | | results section. | + +--------+ + + + | POC GLUCOSE (NON | Routin | 11/09/2019 | | Results for this | | ORD) | e | 4:20 PM | | procedure are in the | | | | PDT | | results section. | + +--------+ + + + | CV CARDIAC PROCEDURE | Routin | 11/09/2019 | | Results for this | | | e | 3:33 PM | | procedure are in the | | | | PDT | | results section. | + +--------+ + + + | CV CARDIAC PROCEDURE | Routin | 11/09/2019 | | Results for this | | | e | 3:33 PM | | procedure are in the | | | | PDT | | results section. | + +--------+ + + + | CV CARDIAC PROCEDURE | Routin | 11/09/2019 | | Results for this | | | e | 3:33 PM | | procedure are in the | | | | PDT | | results section. | + +--------+ + + + | ACTIVATED CLOTTING | Routin | 11/09/2019 | | Results for this | | TIME | e | 3:04 PM | | procedure are in the | | | | PDT | | results section. | + +--------+ + + + documented in this encounter Results ARRHYTHMIA MONITOR - EXTERNAL SCAN (11/12/2019 12:00 AM PDT) + + + | Narrative | Performed At | + + + | Ordered by an | | | unspecified provider. | | + + + POC Glucose (11/11/2019 8:24 AM PDT) + + + + + + | Component | Value | Ref Range | Performed | Pathologist | | | | | At | Signature | + + + + + + | Glucose, | 139 (H)Comment: Testing | 65 - 99 mg/dL | [facility] | | | POC | performed at [facility];[address] | | LABORATORY | | | | [address];[place], [place] | | | | | | [address] | | | | + + + + + + + + | Specimen | + + | | + + + + + + + | Performing | Address | City/State/Zipcode | Phone Number | | Organization | | | | + + + + + | [facility] | [address] | [place] [address] | [phone] | + + + + + Troponin I (11/11/2019 5:37 AM PDT) + + + + + + | Component | Value | Ref Range | Performed | Pathologist | | | | | At | Signature | + + + + + + | Troponin I | 5.293 ()Comment: | 0.00 - 0.04 | [facility] | | | | 0.04 ng/mL or less | ng/mL | LABORATORY | | | | Negative, repeat | | | | | | testing in four to six | | | | | | hour ifclinically | | | | | | indicted0.05 to 0.77 | | | | | | ng/mL | | | | | | Suspicious for | | | | | | myocardial injury. | | | | | | Serial measurementsmay | | | | | | be necessary to confirm | | | | | | or exclude the diagnosis | | | | | | of acute | | | | | | coronarysyndrome. Repeat | | | | | | testing in four to six | | | | | | hours if indicated.0.78 | | | | | | or greater ng/mL | | | | | | Consistent with | | | | | | myocardial injury. | | | | | | Clinical andlaboratory | | | | | | correlation recommended. | | | | | | CALLED NURSING | | | | | | RICHY STEVENS AT 0613 | | | | | | BY [employer] BACK RESULTS | | | | | | VERIFIEDTesting | | | | | | performed at [facility];[address] | | | | | | [address];[place] | | | | | | [address] | | | | + + + + + + + + | Specimen | + + | Blood | + + + + + + + | Performing | Address | City/State/Zipcode | Phone Number | | Organization | | | | + + + + + | [facility] | [address] | [place] [address] | [phone] | + + + + + Comprehensive Metabolic Panel (11/11/2019 5:37 AM PDT) + + + + [...] + + + + | K | 4.5 | 3.5 - 4.9 | [facility] | | | | | mmol/L | LABORATORY | | + + + + + + | Cl | 104 | 99 - 109 mmol/L | [facility] [...] + + + + | Glucose | 146 (H) | 65 - 99 mg/dL | [facility] | | | | | | LABORATORY | | + + + + + + | BUN | 11 | 8 - 25 mg/dL | [facility] | | | | | | LABORATORY | | + + + + + + | Creatinine | 0.90 | 0.70 - 1.30 | [facility] | | | | | mg/dL | LABORATORY | | + + + + + + | BUN/Creatin | 12 | | [facility] | | | ine Ratio | | | LABORATORY | | + + + + + + | Calcium | 9.8 | 8.5 - 10.5 | [facility] | | | | | mg/dL | LABORATORY | | + + + + + + | Protein, | 7.5 | 6.3 - 8.2 g/dL | [facility] | | | Total | | | LABORATORY | | + + + + + + | Albumin | 3.5 | 3.3 - 4.8 g/dL | [facility] | | | | | | LABORATORY | | + + + + + + | Globulin | 4.0 | 1.3 - 4.9 g/dL | [facility] | | | | | | LABORATORY | | + + + + + + | A/G Ratio | 0.9 (L) | 1.0 - 2.4 | [facility] | | | | | | LABORATORY | | + + + + + + | BILIRUBIN, | 0.8 | 0.1 - 1.5 mg/dL | [facility] | | | TOTAL | | | LABORATORY | | + + + + + + | ALK PHOS | 97 | 35 - 115 U/L | [facility] | | | | | | LABORATORY | | + + + + + + | AST | 21 | 10 - 45 U/L | [facility] | | | | | | LABORATORY | | + + + + + + | ALT | 27 | 10 - 65 U/L | [facility] | | | | | | LABORATORY | | + + + + + + | Estimated | >60Comment: GFR <60: | >60 | [facility] | | | GFR | CHRONIC KIDNEY [...] | | | | | | MDRD IDFL traceable | | | | | | equation.Testing | | | | | | performed at [facility], [address] | | | | | | [facility], | | | | | | [place] [address] | | | | + + + + + + + + | Specimen | + + | Blood | + + + + + + + | Performing | Address | City/State/Zipcode | Phone Number | | Organization | | | | + + + + + | [facility] | [address] | [place] [address] | [phone] | + + + + + CBC no Differential (11/11/2019 5:37 AM PDT) + + + + + + | Component | Value | Ref Range | Performed | Pathologist | | | | | At | Signature | + + + + + + | WBC | 8.39 | 3.80 - 11.00 | [facility] | | | | | K/uL | LABORATORY | | + + + + + + | Red Blood | 5.35 | 4.20 - 5.70 | [facility] | | | Cells | | M/uL | LABORATORY | | + + + + + + | Hemoglobin | 15.7 | 13.2 - 17.0 | [facility] | | | | | g/dL | LABORATORY | | + + + + + + | Hematocrit | 47.5 | 39.0 - 50.0 % | [facility] | | | | | | LABORATORY | | + + + + + + | MCV | 88.8 | 80.0 - 100.0 fl | [facility] | | | | | | LABORATORY | | + + + + + + | MCH | 29.3 | 27.0 - 34.0 pg | [facility] | | | | | | LABORATORY | | + + + + + + | MCHC | 33.1 | 32.0 - 35.5 | [facility] | | | | | g/dL | LABORATORY | | + + + + + + | RDW-SD | 41.4 | 37 - 53 fl | [facility] | | | | | | LABORATORY | | + + + + + + | Platelet | 329 | 150 - 400 K/uL | [facility] | | | Count | | | LABORATORY | | + + + + + + | MPV | 10.3Comment: NO NORMAL | fl | [facility] | | | | RANGE ESTABLISHEDTesting | | LABORATORY | | | | performed at [facility], [address] | | | | | [address], | | | | | | [place] [address] | | | | + + + + + + + + | Specimen | + + | Blood | + + + + + + + | Performing | Address | City/State/Zipcode | Phone Number | | Organization | | | | + + + + + | [facility] | [address] | [place] [address] | [phone] | + + + + + POC Glucose (11/10/2019 9:49 PM PDT) + + + + + + | Component | Value | Ref Range | Performed | Pathologist | | | | | At | Signature | + + + + + + | Glucose, | 139 (H)Comment: Testing | 65 - 99 mg/dL | [facility] | | | POC | performed at [facility];[address] | | LABORATORY | | | | [address];[place] | | | | | | [address] | | | | + + + + + + + + | Specimen | + + | | + + + + + + + | Performing | Address | City/State/Zipcode | Phone Number | | Organization | | | | + + + + + | [facility] | [address] | [place] [address] | [phone] | + + + + + POC Glucose (11/10/2019 4:12 PM PDT) + + + + + + | Component | Value | Ref Range | Performed | Pathologist | | | | | At | Signature | + + + + + + | Glucose, | 103 (H)Comment: Testing | 65 - 99 mg/dL | [facility] | | | POC | performed at [facility];[address] | | LABORATORY | | | | [address];[place] | | | | | | [address] | | | | + + + + + + + + | Specimen | + + | | + + + + + + + | Performing | Address | City/State/Zipcode | Phone Number | | Organization | | | | + + + + + | [facility] | [address] | [place] [address] | [phone] | + + + + + POC Glucose (11/10/2019 11:38 AM PDT) + + + + + + | Component | Value | Ref Range | Performed | Pathologist | | | | | At | Signature | + + + + + + | Glucose, | 234 (H)Comment: Testing | 65 - 99 mg/dL | [facility] | | | POC | performed at [facility];[address] | | LABORATORY | | | | [address];[place], [place] | | | | | | [address] | | | | + + + + + + + + | Specimen | + + | | + + + + + + + | Performing | Address | City/State/Zipcode | Phone Number | | Organization | | | | + + + + + | [facility] | [address] | [place] [address] | [phone] | + + + + + POC Glucose (11/10/2019 8:29 AM PDT) + + + + + + | Component | Value | Ref Range | Performed | Pathologist | | | | | At | Signature | + + + + + + | Glucose, | 147 (H)Comment: Testing | 65 - 99 mg/dL | [facility] | | | POC | performed at [facility];[address] | | LABORATORY | | | | [address];[place] | | | | | | [address] | | | | + + + + + + + + | Specimen | + + | | + + + + + + + | Performing | Address | City/State/Zipcode | Phone Number | | Organization | | | | + + + + + | [facility] | [address] | [place] [address] | [phone] | + + + + + ECHO Complete (11/10/2019 7:50 AM PDT) + +--------+ + + + | Component | Value | Ref Range | Performed | Pathologist | | | | | At | Signature | + +--------+ + + + | LVEF-TTE | 60 | % | [facility] | | | TRANSTHORAC | | | | | | IC ECHO | | | | | + +--------+ + + + | Inferior | 2.86 | cm | [facility] | | | Vena Cava | | | | | | Diameter at | | | | | | Expiration | | | | | + +--------+ + + + | RA PRESSURE | 8 | mmHg | [facility] | | + +--------+ + + + | LVIDd | 4.94 | cm | [facility] | | + +--------+ + + + | FS | 34 | % | [facility] | | + +--------+ + + + | LA volume | 57.82 | mL | [facility] | | + +--------+ + + + | Ascending | 3.33 | cm | [facility] | | | aorta | | | | | + +--------+ + + + | AV mean | 2.65 | mmHg | [facility] | | | gradient | | | | | + +--------+ + + + | Aortic | 3.37 | cm2 | [facility] | | | Valve Area | | | | | | by | | | | | | Continuity | | | | | | VTI | | | | | + +--------+ + + + | PV peak | 2.2 | mmHg | [facility] | | | gradient | | | | | + +--------+ + + + | LVOT | 2.36 | cm | [facility] | | | diameter | | | | | + +--------+ + + + | LVOT peak | 90.88 | cm/s | [facility] | | | rainer | | | | | + +--------+ + + + | LVOT peak | 19.73 | cm | [facility] | | | VTI | | | | | + +--------+ + + + | AV peak rainer | 105.3 | cm/s | [facility] | | + +--------+ + + + | AV VTI | 25.6 | cm | [facility] | | + +--------+ + + + | AV peak | 4.44 | mmHg | [facility] | | | gradient | | | | | + +--------+ + + + | TV peak | 1.31 | mmHg | [facility] | | | gradient | | | | | + +--------+ + + + | PV mean | 0.91 | mmHg | [facility] | | | gradient | | | | | + +--------+ + + + | LA Volume | 27 | mL/m2 | [facility] | | | Index | | | | | + +--------+ + + + | AV LVOT | 3.3 | mmHg | [facility] | | | Peak | | | | | | Gradient | | | | | + +--------+ + + + | AV LVOT | 1.76 | mmHg | [facility] | | | Mean | | | | | | Gradient | | | | | + +--------+ + + + | PI Peak | 74.14 | cm/s | [facility] | | | Velocity | | | | | + +--------+ + + + | RV | 3.22 | cm | [facility] | | | Diastolic | | | | | | Basal | | | | | | Diameter | | | | | + +--------+ + + + | LVOT Mean | 61.73 | cm/s | [facility] | | | Velocity | | | | | + +--------+ + + + | MV E' | 8.61 | cm/s | [facility] | | | Lateral | | | | | | Velocity | | | | | + +--------+ + + + | MV E' | 7.33 | cm/s | [facility] | | | Septal | | | | | | Velocity | | | | | + +--------+ + + + | MV | 240.26 | msec | [facility] | | | Deceleratio | | | | | | n Time | | | | | + +--------+ + + + | MV E/A | 1.41 | | [facility] | | | Ratio | | | | | + +--------+ + + + | MV Peak | 57.66 | cm/s | [facility] | | | A-Wave | | | | | + +--------+ + + + | MV Peak | 81.03 | cm/s | [facility] | | | E-Wave | | | | | + +--------+ + + + | TV | 321.53 | msec | [facility] | | | Deceleratio | | | | | | n Time | | | | | + +--------+ + + + | TV Peak | 40.89 | cm/s | [facility] | | | A-Wave | | | | | + +--------+ + + + | TV Peak | 57.28 | cm/s | [facility] | | | E-Wave | | | | | + +--------+ + + + | PV Mean | 42.24 | cm/s | [facility] | | | Velocity | | | | | + +--------+ + + + | AV Mean | 77 | cm/s | [facility] | | | Velocity | | | | | + +--------+ + + + | RA Area | 11.81 | cm2 | [facility] | | + +--------+ + + + | LA/Aorta | 1.21 | | [facility] | | | Ratio | | | | | + +--------+ + + + | LA Area | 19.39 | cm2 | [facility] | | + +--------+ + + + | LA Systolic | 13.76 | mmHg | [facility] | | | Pressure | | | | | + +--------+ + + + | MV E/E | 11.05 | | [facility] | | | SEPTAL | | | | | + +--------+ + + + | MV E/E | 9.41 | | [facility] | | | LATERAL | | | | | + +--------+ + + + | LA Major | 0.256 | cm | [facility] | | + +--------+ + + + | Cardiac | 6.12 | l/min | [facility] | | | Output | | | | | + +--------+ + + + | Cardiac | 2.85 | l/min/m2 | [facility] | | | Index | | | | | + +--------+ + + + | Vitals | 71 | | [facility] | | | Heart Rate | | | | | | Rest | | | | | + +--------+ + + + | Vitals BP | 128 | | [facility] | | | Systolic | | | | | + +--------+ + + + | Vitals BP | 72 | | [facility] | | | Diastolic | | | | | + +--------+ + + + | Vitals | 183.0 | | [facility] | | | Height | | | | | + +--------+ + + + | Vitals | 92.50 | | [facility] | | | Weight | | | | | + +--------+ + + + | Aortic Root | 3.83 | cm | [facility] | | | Diameter | | | | | + +--------+ + + + | IVS | 1.28 | cm | [facility] | | | Diastolic | | | | | | Thickness | | | | | | MM | | | | | + +--------+ + + + | LVPW | 1.16 | cm | [facility] | | | Diastolic | | | | | | Thickness | | | | | | MM | | | | | + +--------+ + + + | IVS | 1.72 | cm | [facility] | | | Systolic | | | | | | Thickness | | | | | | MM | | | | | + +--------+ + + + | LV Systolic | 3.28 | cm | [facility] | | | Diameter | | | | | | MM | | | | | + +--------+ + + + | LVPW | 1.61 | cm | [facility] | | | Systolic | | | | | | Thickness | | | | | | MM | | | | | + +--------+ + + + | AV Cusp | 2.14 | cm | [facility] | | | Seperation | | | | | | MM | | | | | + +--------+ + + + | LA Systolic | 4.64 | cm | [facility] | | | Diameter | | | | | | MM | | | | | + +--------+ + + + | TAPSE | 2.7 | cm | [facility] | | + +--------+ + + + + + | Specimen | + + | | + + + + + | Narrative | Performed At | + + + | 1. Normal | [facility] | | overall left ventricular systolic function with EF 60 to 65%.2. Mild | | | concentric left ventricular hypertrophy.3. Moderate hypokinesia of the | | | basal to mid inferolateral wall and basal inferior wall.4. No | | | significant valvular disorders. | | | | | + + + + +---------+ + + | Performing | Address | City/State/Zipcode | Phone Number | | Organization | | | | + +---------+ + + | [facility] | | | | + +---------+ + + Troponin I (11/10/2019 5:30 AM PDT) + + + + + + | Component | Value | Ref Range | Performed | Pathologist | | | | | At | Signature | + + + + + + | Troponin I | 8.194 ()Comment: | 0.00 - 0.04 | [facility] | | | | 0.04 ng/mL or less | ng/mL | LABORATORY | | | | Negative, repeat | | | | | | testing in four to six | | | | | | hour ifclinically | | | | | | indicted0.05 to 0.77 | | | | | | ng/mL | | | | | | Suspicious for | | | | | | myocardial injury. | | | | | | Serial measurementsmay | | | | | | be necessary to confirm | | | | | | or exclude the diagnosis | | | | | | of acute | | | | | | coronarysyndrome. Repeat | | | | | | testing in four to six | | | | | | hours if indicated.0.78 | | | | | | or greater ng/mL | | | | | | Consistent with | | | | | | myocardial injury. | | | | | | Clinical andlaboratory | | | | | | correlation recommended. | | | | | | RESULTS CALLED TO | | | | | | MARSHA M/[id number] | | | | | | [id number],JBREAD BACK | | | | | | RESULTS VERIFIEDTesting | | | | | | performed at [facility];[address] | | | | | | [address];[place] | | | | | | [address] | | | | + + + + + + + + | Specimen | + + | Blood | + + + + + + + | Performing | Address | City/State/Zipcode | Phone Number | | Organization | | | | + + + + + | [facility] | [address] | [place] [address] | [phone] | + + + + + Hemoglobin A1C (11/10/2019 5:30 AM PDT) + + + + + + | Component | Value | Ref Range | Performed | Pathologist | | | | | At | Signature | + + + + + + | Hemoglobin | 9.6 (H)Comment: | 4.8 - 5.6 % | [facility] | | | A1c | Prediabetes: 5.[address], | | | | | | [address] | | | | | | [address] | | | | + + + + + + + + | Specimen | + + | Blood | + + + + + + + | Performing | Address | City/State/Zipcode | Phone Number | | Organization | | | | + + + + + | [facility] | [address] | [place] [address] | [phone] | + + + + + Lipid Panel (11/10/2019 5:30 AM PDT) + + + + + + | Component | Value | Ref Range | Performed | Pathologist | | | | | At | Signature | + + + + + + | Cholesterol | 143 | <200 mg/dL | [facility] | | | | | | LABORATORY | | + + + + + + | Triglycerid | 148 | <150 mg/dL | [facility] | | | es | | | LABORATORY | | + + + + + + | HDL | 24 (L) | >40 mg/dL | [facility] | | | | | | LABORATORY | | + + + + + + | LDL, | 89Comment: Testing | <100 mg/dL | [facility] | | | Calculated | performed at [facility], [address] | | LABORATORY | | | | [address], | | | | | | [place] [address] | | | | + + + + + + + + | Specimen | + + | Blood | + + + + + + + | Performing | Address | City/State/Zipcode | Phone Number | | Organization | | | | + + + + + | [facility] | [address] | [place] [address] | [phone] | + + + + + CBC no Differential (11/10/2019 5:30 AM PDT) + + + + + + | Component | Value | Ref Range | Performed | Pathologist | | | | | At | Signature | + + + + + + | WBC | 10.58 | 3.80 - 11.00 | [facility] | | | | | K/uL | LABORATORY | | + + + + + + | Red Blood | 4.81 | 4.20 - 5.70 | [facility] | | | Cells | | M/uL | LABORATORY | | + + + + + + | Hemoglobin | 14.1 | 13.2 - 17.0 | [facility] | | | | | g/dL | LABORATORY | | + + + + + + | Hematocrit | 42.8 | 39.0 - 50.0 % | [facility] | | | | | | LABORATORY | | + + + + + + | MCV | 89.0 | 80.0 - 100.0 fl | [facility] | | | | | | LABORATORY | | + + + + + + | MCH | 29.3 | 27.0 - 34.0 pg | [facility] | | | | | | LABORATORY | | + + + + + + | MCHC | 32.9 | 32.0 - 35.5 | [facility] | | | | | g/dL | LABORATORY | | + + + + + + | RDW-SD | 42.1 | 37 - 53 fl | [facility] | | | | | | LABORATORY | | + + + + + + | Platelet | 299 | 150 - 400 K/uL | [facility] | | | Count | | | LABORATORY | | + + + + + + | MPV | 10.5Comment: NO NORMAL | fl | [facility] | | | | RANGE ESTABLISHEDTesting | | LABORATORY | | | | performed at [facility], [address] | | | | | [address], | | | | | | [place] [address] | | | | + + + + + + + + | Specimen | + + | Blood | + + + + + + + | Performing | Address | City/State/Zipcode | Phone Number | | Organization | | | | + + + + + | [facility] | [address] | [place] [address] | [phone] | + + + + + Basic Metabolic Panel (11/10/2019 5:30 AM PDT) + + + + + + | Component | Value | Ref Range | Performed | Pathologist | | | | | At | Signature | + + + + + + | Na | 136 | 135 - 145 | [facility] | | | | | mmol/L | LABORATORY | | + + + + + + | K | 4.2 | 3.5 - 4.9 | [facility] | | | | | mmol/L | LABORATORY | | + + + + + + | Cl | 108 | 99 - 109 mmol/L | [facility] | | | | | | LABORATORY | | + + + + + + | CO2 | 22 (L) | 23 - 32 mmol/L | [facility] | | | | | | LABORATORY | | + + + + + + | Anion Gap | 10 | 5 - 20 mmol/L | [facility] | | | | | | LABORATORY | | + + + + + + | Glucose | 172 (H) | 65 - 99 mg/dL | [facility] | | | | | | LABORATORY | | + + + + + + | BUN | 13 | 8 - 25 mg/dL | [facility] | | | | | | LABORATORY | | + + + + + + | Creatinine | 1.00 | 0.70 - 1.30 | [facility] | [...] | | | | | performed at [facility], [address] | | | | | [facility], | | | | | | [place] [address] | | | | + + + + + + + + | Specimen | + + | Blood | + + + + + + + | Performing | Address | City/State/Zipcode | Phone Number | | Organization | | | | + + + + + | [facility] | [address] | [place] [address] | [phone] | + + + + + CK Total (11/10/2019 5:30 AM PDT) + + + + + + | Component | Value | Ref Range | Performed | Pathologist | | | | | At | Signature | + + + + + + | CK TOTAL | 230Comment: Testing | 55 - 400 U/L | [facility] | | | | performed at [facility];[address] | | LABORATORY | | | | [address];[place] | | | | | | [address] | | | | + + + + + + + + | Specimen | + + | Blood | + + + + + + + | Performing | Address | City/State/Zipcode | Phone Number | | Organization | | | | + + + + + | [facility] | [address] | [place] [address] | [phone] | + + + + + ECG 12 lead (11/10/2019 5:09 AM PDT) + + + + + + | Component | Value | Ref Range | Performed | Pathologist | | | | | At | Signature | + + + + + + | VENTRICULAR | 67 | BPM | [facility] | | | RATE EKG | | | | | + + + + + + | ATRIAL RATE | 67 | BPM | [facility] | | + + + + + + | P-R | 172 | ms | [facility] | | | INTERVAL | | | | | + + + + + + | QRS | 86 | ms | [facility] | | | DURATION | | | | | + + + + + + | Q-T | 398 | ms | [facility] | | | INTERVAL | | | | | + + + + + + | Q-T | 420 | ms | [facility] | | | INTERVAL | | | | | | (CORRECTED) | | | | | + + + + + + | P WAVE AXIS | 67 | degrees | [facility] | | + + + + + + | QRS AXIS | 48 | degrees | [facility] | | + + + + + + | T AXIS | 56 | degrees | [facility] | | + + + + + + | INTERPRETAT | Normal sinus | | [facility] | | | ION TEXT | rhythmNormal ECGNo | | | | | | previous ECGs | | | | | | availableConfirmed by | | | | | | CRYSTAL LOWE MD ([id number]) on | | | | | | 11/10/2019 3:04:53 PM | | | | + + [...] | + +---------+ + + POC Glucose (11/09/2019 9:29 PM PDT) + + + + + + | Component | Value | Ref Range | Performed | Pathologist | | | | | At | Signature | + + + + + + | Glucose, | 127 (H)Comment: Testing | 65 - 99 mg/dL | [facility] | | | POC | performed at [facility];[address] | | LABORATORY | | | | [address];[place], [place] | | | | | | [address] | | | | + + + + + + + + | Specimen | + + | | + + + + + + + | Performing | Address | City/State/Zipcode | Phone Number | | Organization | | | | + + + + + | [facility] | [address] | [place] [address] | [phone] | + + + + + POC Glucose (11/09/2019 4:20 PM PDT) + + + + + + | Component | Value | Ref Range | Performed | Pathologist | | | | | At | Signature | + + + + + + | Glucose, | 184 (H)Comment: Testing | 65 - 99 mg/dL | [facility] | | | POC | performed at [facility];[address] | | LABORATORY | | | | [address];[place], [place] | | | | | | [address] | | | | + + + + + + + + | Specimen | + + | | + + + + + + + | Performing | Address | City/State/Zipcode | Phone Number | | Organization | | | | + + + + + | [facility] | [address] | [place] [address] | [phone] | + + + + + CV CARDIAC PROCEDURE (11/09/2019 3:33 PM PDT) + + | Specimen | + + | | + + + + + | Narrative | Performed At | + + + | Summary | | | Three-vessel disease, including bifurcating proximal LAD. 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 Angioplasty for the right AV groove artery | | | with synergy 2.5 x 24 mm. Recommendations Admit to hospital - see | | | orders Anticipated duration of dual antiplatelet therapy is 12 | | | months Ongoing risk factor modification is appropriate Heart Team | | | consultation to help decide care plan Procedures Performed Coronary | | | angiography with left heart cath (79586.26) PCI of right coronary | | | artery during acute NC (40865 RC) Conscious sedation (physician | | | supervision) for 37 total minutes - ([phone]) + 0 ([id number]) Procedure | | | Summary Access site: right radial artery Anticoagulation: | | | heparin Antiplatelet therapy: eptifibatide bolus Closure: | | | Radial band/closure device Clinical IndicationsThis is a 64 y.o. | | | year old male with known history of hypertension, diabetes, on oral | | | hypoglycemic medications, previous stroke, current smoker, presented | | | with acute onset of chest pain, found to have inferior STEMI, referred | | | for emergent left heart catheterization. For additional detail as | | | to the procedures performed and the equipment that was utilized, | | | please refer to the Procedure Log. | | | Anticoagulation: heparin | | | Antiplatelet therapy: eptifibatide bolus | | | Closure: Radial band/closure device | | | | | |Clinical Indications | | |This is a 64 y.o. year old male with known history of hypertension, | | |diabetes, on oral hypoglycemic medications, previous stroke, current | | |smoker, presented with acute onset of chest pain, found to have inferior | | |STEMI, referred for emergent left heart catheterization. | | | | | | | | |For additional detail as to the procedures performed and the equipment | | |that was utilized, please refer to the Procedure Log. | | | | | + + + Activated clotting time (11/09/2019 3:04 PM PDT) + + + + + + | Component | Value | Ref Range | Performed | Pathologist | | | | | At | Signature | + + + + + + | Activated | 257 (H)Comment: Testing | 74 - 137 | [facility] | | | Clotting | performed at [facility];[address] | seconds | LABORATORY | | | Time, POC | [address];[place], [place] | | | | | | [address] | | | | + + + + + + + + | Specimen | + + | | + + + + + + + | Performing | Address | City/State/Zipcode | Phone Number | | Organization | | | | + + + + + | [facility] | [address] | [place] [address] | [phone] | + + + + + documented in this encounter Visit Diagnoses + + | Diagnosis | + + | ST elevation myocardial infarction (STEMI) of inferior wall (HCC) - Primary Acute | | myocardial infarction of other inferior wall, episode of care unspecified | + + | S/P drug eluting coronary stent placement | + + documented in this encounter Administered Medications + +--------+ +-------+------+------+ | Medication Order | MAR | Action | Dose | Rate | Site | | | Action | Date | | | | + +--------+ +-------+------+------+ | aspirin chewable tablet 81 mg | Given | 11/11/19 | 81 mg | | | | 81 mg, Oral, DAILY, First dose on | | 20 8:23 | | | | | 11/10/19 at 0900, Do not give | | AM PDT | | | | | if already taken today., | | | | | | | Post-op/Phase II | | | | | | + +--------+ +-------+------+------+ +-------+ +-------+---+---+ | Given | 11/10/19 | 81 mg | | | | | 20 9:08 | | | | | | AM PDT | | | | +-------+ +-------+---+---+ +---+---+ | | | +---+---+ + +-------+ +-------+---+---+ | atorvaSTATin (LIPITOR) tablet | Given | 11/10/19 | 80 mg | | | | 80 mg 80 mg, Oral, NIGHTLY, | | 20 8:43 | | | | | First dose on Wed11/09/19 at | | PM PDT | | | | | 2100, Post-op/Phase II | | | | | | + +-------+ +-------+---+---+ +-------+ +-------+---+---+ | Given | 11/09/19 | 80 mg | | | | | 20 8:14 | | | | | | PM PDT | | | | +-------+ +-------+---+---+ +---+---+ | | | +---+---+ + +-------+ +-------+---+---+ | clopidogrel (PLAVIX) tablet 75 | Given | 11/11/19 | 75 mg | | | | mg 75 mg, Oral, DAILY, First | | 20 8:23 | | | | | dose on Wed11/10/19 at 0900, Do | | AM PDT | | | | | not give if already taken today., | | | | | | | Post-op/Phase II | | | | | | + +-------+ +-------+---+---+ +-------+ +-------+---+---+ | Given | 11/10/19 | 75 mg | | | | | 20 9:08 | | | | | | AM PDT | | | | +-------+ +-------+---+---+ + +---+ | | | + +---+ | dextrose 10% (D10W) infusion | | | at 50 mL/hr, Intravenous, | | | CONTINUOUS PRN, hypoglycemia, | | | Starting [facility] 11/09/19 at 1545, | | | Start infusion if unable [...] | | | Low Blood Sugar, Starting Sue | | | 11/09/19 at 1545, For blood | | | glucose 50-69 mg/dl - give 12.5 g | | | For blood glucose less than 50 | | | mg/dl - give 25 g, | | + +---+ | | | + +---+ + +-------+ +---------+---+ + | insulin lispro (humaLOG) | Given | 11/10/19 | 6 Units | | Arm-Left | | injection (vial) 2-14 Units 2-14 | | 20 12:19 | | | Upper | | Units, Subcutaneous, 3 TIMES | | PM PDT | | | | | DAILY WITH MEALS, First dose on | | | | | | | Sue 11/09/19 at 1700, [employer] | | | | | | | Correctional Scale: For Blood | | | | | | | Glucose (BG): 142 to 180 Give | | | | | | | 2 units 181 to 220 Give 4 units | | | | | | | 221 to 260 Give 6 units 261 to | | | | | | | 300 Give 8 units 301 to 350 | | | | | | | Give 10 units 351 to 400 Give | | | | | | | 12 units Over 400 Give 14 | | | | | | | units Only for use with U-100 | | | | | | | insulin syringe., | | | | | | + +-------+ +---------+---+ + +-------+ +---------+---+ + | Given | 11/09/19 | 4 Units | | Arm-Left | | | 20 5:19 | | | Upper | | | PM PDT | | | | +-------+ +---------+---+ + +---+---+ | | | +---+---+ + +-------+ +-------+---+---+ | lisinopril (PRINIVIL, ZESTRIL) | Given | 11/11/19 | 10 mg | | | | tablet 10 mg 10 mg, Oral, DAILY, | | 20 8:23 | | | | | First dose on Sue 11/09/19 at | | AM PDT | | | | | 1615, Hold for SBP<100, | | | | | | | Post-op/Phase II | | | | | | + +-------+ +-------+---+---+ +-------+ +-------+---+---+ | Given | 11/10/19 | 10 mg | | | | | 20 9:08 | | | | | | AM PDT | | | | +-------+ +-------+---+---+ | Given | 11/09/19 | 10 mg | | | | | 20 4:21 | | | | | | PM PDT | | | | +-------+ +-------+---+---+ +---+---+ | | | +---+---+ + +-------+ +-------+---+---+ | metoprolol succinate | Given | 11/11/19 | 50 mg | | | | (TOPROL-XL) ER tablet 50 mg 50 | | 20 8:23 | | | | | mg, Oral, DAILY, First dose on | | AM PDT | | | | | Sue 11/09/19 at 1615, Hold for | | | | | | | SBP<100 or HR<50. Tablet may be | | | | | | | cut where scored but do not | | | | | | | crush., Post-op/Phase II | | | | | | + +-------+ +-------+---+---+ +-------+ +-------+---+---+ | Given | 11/10/19 | 50 mg | | | | | 20 9:08 | | | | | | AM PDT | | | | +-------+ +-------+---+---+ | Given | 11/09/19 | 50 mg | | | | | 20 4:21 | | | | | | PM PDT | | | | +-------+ +-------+---+---+ +---+---+ | | | +---+---+ + +---------+ +--------+-------+---+ | sodium chloride 0.9% (NS) bolus | New Bag | 11/09/19 | 1,000 | 250 | | | 1,000 mL 1,000 mL, Intravenous, | | 20 3:56 | mLs | mL/hr | | | Administer over 4 Hours, ONCE, | | PM PDT | | | | | Sue 11/09/19 at 1615, For 1 dose, | | | | | | | 1 ml/kg/hr x 6 hours, | | | | | | | Post-op/Phase II | | | | | | + +---------+ +--------+-------+---+ +---+---+ | | | +---+---+ documented in this encounter"
--- OUTSIDE RECORDS SUMMARY | ~2020-02-21 | XMS | Encounter Summary ---
Demographics + + + | Address | [address] | | | [place] [address] | + + + | Home Phone | | + + + | Preferred Language | Unknown | + + + | Marital Status | Single | + + + | Yazidism Affiliation | NON | + + + | Race | White | + + + | Ethnic Group | Not or | + + + Author + + + | Author | [facility] | + + + | Organization | [facility] | + + + | Address | Unknown | + + + | Phone | Unavailable | + + + Support + + +---------+ + | Name | Relationship | Address | Phone | + + +---------+ + | Valerie Perales | ECON | Unknown | | + + +---------+ + Care Team Providers + +------+ + | Care Platen Drier Operator Name | Role | Phone | + +------+ + | Forest Laurent MD | PCP | Unavailable | + +------+ + Reason for Referral Speech Therapy (Routine) +--------+---------+ + + + + | Status | Reason | Specialty | Diagnoses / | Referred By | Referred To | | | | | Procedures | Contact | Contact | +--------+---------+ + + + + | Closed | Other | Speech | Diagnoses | Fuad, | Luis Angel [facility] | | | | Therapy | Stroke | MD Jadiel | [address] | | | | | ([facility]) | [address] | e [place] | | | | | Procedures | Ave | for Health | | | | | REHAB SPEECH | [place], [place] | and Healing, | | | | | | [address] | Building [address], | | | | | LANGUAGE/COG | Phone: | 1st Floor | | | | | NITIVE | [phone] | [place], [place] | | | | | REFERRAL NO | Fax: | [address] | | | | | insurance | [phone] | Phone: | | | | | | | [phone] | | | | | | | Fax: | | | | | | | [phone] | +--------+---------+ + + + + Occupational Therapy (Routine) +--------+---------+ + + + + | Status | Reason | Specialty | Diagnoses / | Referred By | Referred To | | | | | Procedures | Contact | Contact | +--------+---------+ + + + + | Closed | Other | Occupational | Diagnoses | Fuad, | Luis Angel Ot [facility] | | | | Therapy | Stroke | MD Jadiel | [address] | | | | | ([facility]) | [address] | [address] [place] | | | | | Procedures | Ave | for Health | | | | | PHYS DYS | [place], [place] | and Healing, | | | | | OCCUPATIONAL | [address] | [address], | | | | | THERAPY | Phone: | 1st Floor | | | | | REFERRAL | [phone] | [place], [place] | | | | | | Fax: | [address] | | | | | | [phone] | Phone: | | | | | | | [phone] | | | | | | | Fax: | | | | | | | [phone] | +--------+---------+ + + + + Physical Therapy (Routine) +--------+---------+ + + + + | Status | Reason | Specialty | Diagnoses / | Referred By | Referred To | | | | | Procedures | Contact | Contact | +--------+---------+ + + + + | Closed | Other | Physical | Diagnoses | Fuad, | Luis Angel Pt [facility]1 | | | | Therapy | Stroke | MD Jadiel | [address] | | | | | ([facility]) | [address] | Ave Center | | | | | Procedures | Ave | for Health | | | | | PHYSICAL | [place], [place] | and Healing, | | | | | THERAPY | [address] | Building [address], | | | | | REFERRAL NO | Phone: | 1st Floor | | | | | Insurance | [phone] | [place], [place] | | | | | or financial | Fax: | [address] | | | | | assist | [phone] | Phone: | | | | | | | [phone] | | | | | | | Fax: | | | | | | | [phone] | +--------+---------+ + + + + Diagnostic Testing (Routine) +--------+--------+ + + + + | Status | Reason | Specialty | Diagnoses / | Referred By | Referred To | | | | | Procedures | Contact | Contact | +--------+--------+ + + + + | Closed | | Radiology | Procedures | Adrian | Ana Vasc | | | | | VASC LAB | Julia Carvajal, | Lab [address] | | | | | VENOUS | [place] [address] | [address] | | | | | DUPLEX LOWER | [address] | Loop | | | | | EXTREMITY | Nati Jones | Mailcode: | | | | | BILAT COMP | [place], [place] | [address] | | | | | | [address] | Physician's | | | | | | Phone: | Pavilion | | | | | | [phone] | [place], [place] | | | | | | Fax: | [address] | | | | | | [phone] | Phone: | | | | | | | [phone] | | | | | | | Fax: | | | | | | | [phone] | +--------+--------+ + + + + Diagnostic Testing (Routine) +--------+--------+ + + + + | Status | Reason | Specialty | Diagnoses / | Referred By | Referred To | | | | | Procedures | Contact | Contact | +--------+--------+ + + + + | Closed | | Cardiology | Procedures | Adrian, | Car Echo | | | | | | Julia Carvajal, | S[address] | | | | | TRANSTHORACI | [place] [address] | [address] | | | | | C | Refugio Henning | [address] | | | | | ECHOCARDIOGR | Nati Jones | Mendez | | | | | AM, ADULT | [place], [place] | [facility], [facility] | | | | | | [address] | floor | | | | | | Phone: | [place], [place] | | | | | | [phone] | [address] | | | | | | Fax: | Phone: | | | | | | [phone] | [phone] | +--------+--------+ + + + + Diagnostic Testing (Urgent) +--------+--------+ + + + + | Status | Reason | Specialty | Diagnoses / | Referred By | Referred To | | | | | Procedures | Contact | Contact | +--------+--------+ + + + + | Closed | | Radiology | Procedures | Madi Abdi Ct Scan | | | | | CT CTA | MD Andria | [facility] [address] | | | | | HEAD WITH | [address] | [address] | | | | | CONTRAST | Juvencio Damian | Nati Jones [facility] | | | | | | Rd | [facility], | | | | | | [place], [place] | 10th Floor | | | | | | [address] | [place], [place] | | | | | | | [address] | | | | | | | Phone: | | | | | | | [phone] | | | | | | | Fax: | | | | | | | [phone] | +--------+--------+ + + + + Reason for Visit + + + | Reason | Comments | + + + | Stroke Sx | | + + + AUTH/CERT +--------+--------+ + + + + | Status | Reason | Specialty | Diagnoses / | Referred By | Referred To | | | | | Procedures | Contact | Contact | +--------+--------+ + + + + | Closed | | Emergency | | | Emergency | | | | Medicine | | | Dept Hrc | | | | | | | [address] | | | | | | | Juvencio Damian | | | | | | | Robert [facility] | | | | | | | [facility] | | | | | | | [place], [place] | | | | | | | [address] | | | | | | | Phone: | | | | | | | [phone] | +--------+--------+ + + + + Encounter Details +--------+ + + + + | Date | Type | Department | Care Team | Description | +--------+ + + + + | 09/02/ | Hospital | [facility] [address] | [place], | | | 2010 - | Encounter | [address] | MD Tiffanie Feliciano | | | | | [id number] [facility] | [facility] and | | | 09/05/ | | HOSPITAL [place], | Counseling [address] | | | 2010 | | [place] [address] | [address] [place], | | | | | [phone] | [place] [address] | | | | | | [phone] | | | | | | | | | | | | Katina Enrique, | | | | | | [address] | | | | | | [address] | | | | | | [place] [address] | | | | | | [phone] | | | | | | | | | | | | Jadiel Merida MD | | | | | | [address] | | | | | | [place], [place] | | | | | | [address] | | | | | | [phone] | | | | | | | | +--------+ + + + [...] to Quit: Yes; Counseling Given: Yes | + + + [...] + + + | Blood Pressure | 118/68 | 09/05/2010 8:19 AM | | | | | PDT | | + + + + + | Pulse | 67 | 09/05/2010 8:19 AM | | | [...] + | Oxygen Saturation | 95% | 09/05/2010 8:19 AM | | | | | PDT | | + + + + + | Inhaled Oxygen | - | - | | | Concentration | | | | + + + + + | Weight | 92.9 kg (204 lb 12.9 | 09/02/2010 9:30 PM | | | | oz) | PDT | | + + + + + | Height | - | - | | + + + + + | Body Mass Index | - | - | | + + + + + documented in this encounter Discharge Summaries Melissa ALBERTS, Lou - 09/05/2010 11:50 AM PDTFormatting of this note might be different from t he original. INPATIENT PHYSICIAN DISCHARGE SUMMARY Attending Physician: Jadiel Merida MD PCP: Forest Laurent MD Admission Date: 09/02/2010 Discharge Date: 09/05/2010 Diagnoses Principal Final Diagnosis: 1. 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 Cerebral angiography: 40-50% stenosis of the basilar artery at AICA's over a short segment. Hospital Course: Miles Sylvester is a 55 y.o. male with no significant past medical history who was transferred from [facility] with concern for basilar artery thrombosis and brainstem stroke. Mr Lucas Sylvester states that when he got off work about 1730 the day prior to admission he had acute onset of dizziness, gait imbalance where he was constantly falling to the right and dysarth anton. He decided to go the the ED in [place]. He had a CT head at [place] that did not sh ow any acute blood and his symptoms were resolving. The stroke service was called and reques missael CTA or MRA and by this time the symptoms had reportedly resolved completely. We were moose d that angiography could not be performed until the morning. Early the day of admission he h ad an MRI/MRA and when he woke up his symptoms had returned. The MRI showed diffusion restri ction and the MRA showed basilar stenosis. He was transferred to [facility] ED for further evaluat ion. Upon arrival at [facility] ED the Neurology team was called and he was taken immediately to [facility]. When he returned from CTA he reported that his symptoms of dizziness, ataxia and dysarth anton had been stable all day. CTA showed stenosis but patent basilar artery and the rest of h is cerebrovasculature was patent as well. Pt underwent cerebral angiography which revealed 40-50% stenosis of the basilar artery. No stenting or angioplasty was performed. Pt was tr eated with maximal medical therapy. During his short stay, his symptoms improved markedly. He was discharged home with home pt/ot and 24 hr assist in stable condition on 09/05/2010. Current Discharge Medication List START taking these medications aspirin 325 mg Oral Tablet Take 1 Tab by mouth once daily. Qty: 30 Each Refills: 3 clopidogrel 75 mg Oral Tablet Take 1 Tab by mouth once daily. Qty: 30 Tab Refills: 3 lisinopril 10 mg Oral Tablet Take 1 Tab by mouth once daily. Qty: 30 Each Refills: 3 ranitidine 150 mg Oral Tablet Take 1 Tab by mouth two times daily. Qty: 30 Tab Refills: 3 rosuvastatin (CRESTOR) 40 mg Oral Tablet Take 1 Tab by mouth once daily. Qty: 30 Tab Refills: 3 Diet Regular Regular diet- Low sodium, low fat diet is recommended. Activity Walker for ambulation. Recommend assistance for transfers. Destination: Destination: Home Condition on Discharge Stable Follow-Up for Ischemic Stroke For ischemic stroke: Call [phone] to schedule your follow-up appointment in 3 weeks. Follow-Up with PCP With: Primary Care Provider: Forest Laurent MD Appointment: Please call clinic to make appointment for 1 to 2 weeks. Stroke Discharge Orders & Instructions What are the warning signs of stroke? Call 911 if you experience: - Sudden weakness or numbness of the face, arm, or leg, especially on one side of the body; - Sudden confusion, trouble speaking or understanding; - Sudden trouble seeing in one or both eyes; - Sudden trouble walking, dizziness, loss of balance or coordination; - Sudden severe headaches with no obvious cause. Today there are treatments that can reduce the damage caused by a stroke. However, you mus t seek medical attention FAST POSSIBLE BY CALLING 911. Time is Brain. Outstanding labs/studies: None Discharging Physician: LOU WEBB MD Attending Physician: Jadiel Merida MD documented in this encou nter Discharge Instructions Instructions Evelyn Barker R - 09/05/2010Formatting of this note might be different fro m the original. INPATIENT NURSE ORDER FOR DISCHARGE AND INTERDISCIPLINARY INSTRUCTIONS DISCHARGE DATE: 09/05/2010 PATIENT EDUCATION: Patient given the following printed education materials Stroke (CVA) handout. Green[place]ic Stroke (Cerebrovascular Accident) You have been diagnosed by your caregiver as having a stroke. It is caused by a decrease of the oxygen supply to an area of your brain. It is usually the result of a small blood clot or hardening of the arteries. A stroke is a neurologic (brain) condition that can cause some permanent loss of function of the central nervous system (brain). If the symptoms (problems ) of a stroke end without complications in twenty four hours, it is diagnosed as a transient ischemic attack (TIA). If this does not resolve within that time period, it is defined as a stroke. Symptoms from a stroke often improve with therapy and training. symptoms A loss of vision. Numbness on one side. Inability to speak (aphasia). Isolated areas of weakness. Confusion. Depending upon your symptoms, you may require further evaluation by your caregiver. Appropr iate treatment and lifestyle changes may be recommended. Hospitalization or long term car e is decided upon an individual basis by your caregiver. Treatment and therapy are personali zed to the signs and symptoms. Take all medications as suggested. Consult your caregiver bef ore adding over the counter medications. We cannot change our family history. It is important to change the risk factors that we are able. Risk factors you can control include: Hypertension. Blood lipids (cholesterol and triglycerides). Heart problems if these are adding to risk. Stop smoking. This is a grave risk factor . Stop oral contraceptives if currently used unless your caregiver recommends otherwise. seek immediate medical attention if: There are any problems or concerns or the original symptoms that brought you in are getting worse. ExitCare Patient Information 2006 [employer]. Review with patient/family: Understanding of disease/injury/surgical repair Yes Signs/symptoms that they should report Yes Understanding of medications and side effects Yes Activity and diet instructions Yes Follow-up appointments Yes Any concerns/fears Yes Smoking Cessation Counseling/Information was given on admission. Additional Instructions: (ex: daily weights, wound care, tube feeding, trach care, CBG laurie toring etc.) Personal Effects/Medications: Sent home with patient Discharged Via: Wheelchair Mode of Transportation: Car Accompanied by: Family/Responsible [employer] Name: (when applicable) Phone #: Discharge Nurse: EVELYN BARKER Date: 09/05/2010 Discharge Time: 10:42 AM documented in this encounter Medications at Time [...] documented as of this encounter Progress Notes Jadiel Merida MD - 09/05/2010 9:50 AM PDT STROKE I saw and evaluated patient. I reviewed note HO and concur. 55 y.o. 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 He had a MRA showed basilar stenosis. He was transferred to [facility] ED for f urther evaluation. Angio neg BP 109/66 | Pulse 60 | Temp 36.2 C (97.2 F) | RR 20 | Wt 92.9 kg (204 lb 12.9 oz) | SpO 2 96% Gen RRR Lungs clear no LE edema Neuro Alert Ox3 3/3 STM N Lang mild dysarthria CN VFF EOMI N5th mild right 7th Motor 5/5 no drift N FM N Sens N Coordination No neglect Gait DNT NIH = 2 MR = 2 Angio 40% mid basilar stenosis A) S/P CVA- Due to basilar stenosis. Patient stable. Moderate basilar stenosis- Antiplate lets plus risk factors P) ASA/Plavix 3 mo CREST 40mg Target LDL < 70 HCTX/BB Target BP < 140 Home Patient ready F/U stroke 3 weeks ? [facility] DEPARTMENT: ARRON STROKE [facility] - [id number] Place of Service: - CSN: [id number] Suggested Modifer: GC Resident Present Suggested Level of Service: 83786 - Discharge Day mgmt up to 30 min Suggested Diagnosis: 433.01 - Stenosis, Basilar Artery Lou Mejias MD - 09/04 1:59 PM PDT VASCULAR NEUROLOGY PROGRESS NOTE Interval events: PFO noted on TTE. Ataxia has improved today, able to ambulate w walker and transfer to chair. No other complaints. BP a little high today. PE: Last Vitals: BP 131/82 | Pulse 62 | Temp 37 C (98.6 F) | RR 21 | Wt 92.9 kg (204 lb 12. 9 oz) | SpO2 95% 24 Hour Vital Min/Max: Systolic (24hrs), Min:103 mmHg, Max:185 mmHg Diastolic (24hrs), Min:56 mmHg, Max:123 mmHg Pulse Min: 50 Max: 83 Temp Min: 36.7 C (98.1 F) Max: 37.4 C (99.3 F) Resp Min: 14 Max: 22 SpO2 Min: 95 % Max: 100 % Intake/Output Summary (Last 24 hours) at 09/04/10 1402 Last data filed at 09/04/10 1200 Gross per 24 hour Intake 2700 ml Output 2100 ml Net 600 ml Awake, alert & oriented Follows commands PERRL , EOMI Gaze conjugate Sensation grossly intact on the left and right Slight R droop Normal shrug Strength BUE 5/5 Strength BLE 5/5 CBC with diff last 72 hours (or 3 results) Recent Labs Basename 09/04/10 0130 09/02/10 2236 09/02/10 1935 WBC 11.1* 10.3 -- HB 15.6 15.8 17.3 HCT 46.3 47.8 51 PLT 303 329 -- NEUTROPERC -- -- -- BANDPCT -- -- -- LYMPHPERC -- -- -- MONOPERC -- -- -- BASOPERC -- -- -- EOSPERC -- -- -- Chemistries: Last 72 Hours (or 3 results): Recent Labs Basename 09/04/10 0130 09/03/10 1727 09/03/10 0840 09/03/10 0202 09/03/10 0111 09/02/10 2236 NA 136 -- -- -- Not Recd 137 K 3.7 -- -- -- Not Recd 3.6 CL 103 -- -- -- Not Recd 99 BICARB 27 -- -- -- Not Recd 29 BUN 11 -- -- -- Not Recd 10 CR 1.10 -- -- -- Not Recd 0.86 GLU 105* 126* 106* -- -- -- CA 8.8 -- -- -- Not Recd 9.5 MG 2.2 -- -- Combined. -- 2.2 PO4 4.0 -- -- -- Not Recd -- Imaging: CTA 09/02: 1. Less than 50% stenosis at the origin of the left vertebral artery and the basilar artery. The caliber change involving the right vertebral artery, as it becomes intradural, is felt to likely be normal. 2. Old left basal ganglia / internal capsule lacunar infarct. 3. No hemodynamically significant carotid stenoses. 4. Small lymph nodes within all of the cervical susan distributions are more numerous than typical. There is no adenopathy. Assessment & Plan: 55 yo otherwise healthy M transferred from [facility] for basilar artery stenosis. Angio revealed approx 40-50% stenosis of the basilar artery. PFO noted on TTE. LE scans neg for DVT. Plan: - Cont ASA - Cont plavix x 3 mos - Cont Crestor, goal LDL < 70 - Tight BP control, goal SBP < 140. Starting lisinopril. - Transfer to floor today - PT/OT/SP >> IPR vs home w 24 hr minimal physical assistance Staffed with Dr. Merida. Lou Webb MD [id number] signed by Lou Webb MD at 09/04/2010 3:06 PM Marisela Chandler Md - 09/04/2010 10:11 AM JF ATTENDING Author: Marisela Alford MD I have personally seen and evaluated the patient and agree with the assessment and plan as described in the note of Ramon Cisneros NP. Briefly, this is a 55 y.o. 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 He had a MRA showed basilar stenosis. He was transferr ed to [facility] ED for further evaluation. PMH: none Home meds: none 24h events: ataxic, especially gait, angio 40% basilar stenosis A/P: 55 yo with posterior circulation stroke and basilar stenosis not significant enough fo r stenting. At risk for deterioration due to recurrent stroke. -asa/plavix + intensive statin therapy + intensive BP control ([facility] protocol) -mobilize/PT/OT EPIC DEPARTMENT: [id number] Place of Service: Inpatient Date of Service: 09/04/2010 CSN: [id number] Suggested Level of Care: 85810 - SUBSEQUENT HOSPITAL CARE,LEVEL III BetsyFrances - Shyla 09/04/2010 9:28 AM PDT NEUROLOGY MEDICAL STUDENT PROGRESS NOTE Author: FRANCES MCCANN HPI: Mr. Miles Sylvester is a 55 y/o male who was transferred from an OSH for concern of a b asilar artery occlusion as he had presented with dizziness, gait instability, and dysarthria . MRA confirmed a basilar artery stenosis. Current inpatient problem list includes: Patient Active Hospital Problem List: Stroke (09/02/2010) Ataxia (09/02/2010) 24 Hour Events: Patient underwent angio which showed a 40-50% stenosis in the basilar arter y at [facility], no intervention was made. Patient was started on aggressive medical management wi th ASA 325, Plavix 75mg, and a statin. SUBJECTIVE: Patient doing well this AM; no n/v/f/c/VENTURA/changes in vision/weakness. Got up to walk yesterday however reports continued gait instability and imbalance. OBJECTIVE: Last Vitals: BP 140/82 | Pulse 53 | Temp 36.7 C (98.1 F) | RR 18 | Wt 92.9 kg (204 lb 1 2.9 oz) | SpO2 95% 24 Hour Vital Min/Max: Systolic (24hrs), Min:103 mmHg, Max:185 mmHg Diastolic (24hrs), Min:56 mmHg, Max:123 mmHg Pulse Av.4 Min: 50 Max: 83 Temp Av.9 C (98.5 F) Min: 36.7 C (98.1 F) Max: 37.4 C (99.3 F) Resp Av Min: 14 Max: 22 SpO2 Av.8 % Min: 93 % Max: 100 % Intake/Output Summary (Last 24 hours) at 09/04/10 0942 Last data filed at 09/04/10 0400 Gross per 24 hour Intake 1850 ml Output 1750 ml Net 100 ml Constitutional: WD/WN, in NAD Neurological: Mental Status: General: Awake, alert and oriented Concentration and attention span: Normal Fund of knowledge: Adequate recent and remote recall Language: Fluent and articulate without evidence of aphasia or dysarthria Cranial Nerves: I: Not tested II: PERRL III, IV, : EOMI V: Sensation intact and symmetric to light touch V1-V3 VII: slight R facial droop VIII: Intact to finger rub bilaterally IX: Palate elevates symmetrically X: Normal cough XI: Normal shrug bilaterally XII: Tongue protrudes midline Motor: Delt Tri Bi WE WF DI HF HE KF KE APF ADF Left 5 5 5 5 5 5 5 5 5 5 5 5 Right 5 5 5 5 5 5 5 5 5 5 5 5 Sensation: Light touch: Intact and symmetric in the bilateral upper and lower extremities. DTRs: Biceps Triceps Brachioradialis Knee Ankle Left 2+ 2+ 2+ 2+ 2+ Right 2+ 2+ 2+ 2+ 2+ Plantar response is flexors bilaterally Coordination: Fine finger movements are of normal speed and fluency Rapid alternating movements are of normal speed and fluency Finger to nose is of normal speed, no action tremor, and no end-point dysmetria Gait: not tested ROMBERG: not tested Recent Labs Basename 09/04/10 01309/03/10 0202 09/03/10 0111 09/02/10 2236 09/02/10 1935 NA 136 -- Not Recd 137 139 K 3.7 -- Not Recd 3.6 4.1 CL 103 -- Not Recd 99 103 BICARB 27 -- Not Recd 29 -- BUN 11 -- Not Recd 10 12 CR 1.10 -- Not Recd 0.86 0.7 CA 8.8 -- Not Recd 9.5 -- MG 2.2 Combined. -- 2.2 -- PO4 4.0 -- Not Recd -- -- AST -- -- -- 20 -- ALT -- -- -- 24 -- TBILI -- -- -- 0.6 -- AP -- -- -- 82 -- ALB 3.7 -- Not Recd 4.3 -- TP -- -- -- 7.6 -- CBC with diff last 96 hours (or 3 results) Recent Labs Basename 09/04/10129 09/02/10 2236 09/02/10 1935 WBC 11.1* 10.3 -- HB 15.6 15.8 17.3 HCT 46.3 47.8 51 PLT 303 329 -- NEUTROPERC -- -- -- BANDPCT -- -- -- LYMPHPERC -- -- -- MONOPERC -- -- -- BASOPERC -- -- -- EOSPERC -- -- -- Lab Results Lab Test Name Results Date/Time TBILI 0.6 09/02/10 AP 82 09/02/10 TP 7.6 09/02/10 ALB 3.7 09/04/10 AST 20 09/02/10 ALT 24 09/02/10 No results found for this basename: PHENYTOIN:4 in the last 72 hours Recent Labs Basename 09/03/10 0202 INR 1.04 No results found for this basename: culture:5 Current Medications: Current Inpatient Medications Medication Dose Route Frequency acetaminophen (aka TYLENOL) tablet 650 mg 650 mg Oral Q4H PRN aspirin tablet 325 mg 325 mg Oral DAILY clopidogrel (aka PLAVIX) tablet 75 mg 75 mg Oral DAILY dextrose 50 % injection 25 mL 25 mL Intravenous PRN fentaNYL citrate (PF) (aka SUBLIMAZE) injection 50-100 mcg 50-100 mcg Intravenous Q1H PRN glucagon (aka GLUCAGEN) injection 1 mg 1 mg Intramuscular PRN glucose chewable tablet 16 g 16 g Oral Q15MIN PRN guar gum (aka BENEFIBER) oral powder 1 Packet 1 Packet Oral DAILY PRN insulin regular (aka HUMULIN R) injection 1-16 Units 1-16 Units Subcutaneous PC and HS metoclopramide (aka REGLAN) injection 5-10 mg 5-10 mg Intravenous Q4H PRN NaCl 0.9%-KCl 20 mEq/L IV infusion Intravenous CONTINUOUS ondansetron (aka ZOFRAN) injection 4 mg 4 mg Intravenous Q8H PRN ondansetron (aka ZOFRAN) injection 4 mg 4 mg Intravenous Q12H PRN oxyCODONE immediate release (aka ROXICODONE) tablet 5-15 mg 5-15 mg Oral Q3H PRN polyethylene glycol (aka MIRALAX) powder 17 g 17 g Oral DAILY PRN potassium chloride IV 10 mEq 10 mEq Intravenous PRN potassium chloride SR (aka K-DUR) tablet 10-40 mEq 10-40 mEq Oral PRN ranitidine (aka ZANTAC) tablet 150 mg 150 mg Oral BID rosuvastatin (aka CRESTOR) tablet 40 mg 40 mg Oral DAILY senna-docusate (aka SENOKOT S) 8.6-50 mg 1 Tab 1 Tab Oral BID simethicone chew (aka MYLICON) tablet 80 mg 80 mg Oral TID PRN Assessment and Plan: Mr. Miles Sylvester is a 55 y/o male who was transferred from an OSH for a basilar artery occlusion. Angio demonstrated less than 70% stenosis therefore no interven tions were made. Patient was initiated on aggressive medical management with ASA 325mg, Plav ix 75mg, and crestor 40mg and should continue this regimen. One other needed modification is his elevated BP during hospitalization (SBP up to 160s), therefore patient should be starte d on anti-hypertensives- a thiazide and lisinopril would be appropriate. A beta-manju was not chosen as his HR is low-normal. Lastly, patient will need intensive PT while inpatient a nd can f/u in stroke clinic in about 3 weeks or so after discharge. Patient is clinically im proving today. Routine Care: Lines: PIV Feeding: normal Aspiration/Fall/Seizure Precautions: Fall Ulcer prophylaxis: ranitidine Glycemic control: ISS Disposition: home Rehab: PT/OT Code: Full Please see associated resident note. Frances Mccann. MS4 FRANCES RUIZIT NClJadiel bacon MD - 09/04/2010 9:23 AM PDT STROKE I saw and evaluated patient. I reviewed note HO and concur. 55 y.o. 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 He had a MRA showed basilar stenosis. He was transferred to [facility] ED for f urther evaluation. 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 Patient stable. Moderate basilar stenosis- Antiplate lets plus risk factors P) ASA/Plavix 3 mo CREST 40mg Target LDL < 70 HCTX/BB Target BP < 140 Home vs rehab Patient ready F/U stroke 3 weeks ? [facility] DEPARTMENT: [facility] STRO[facility] - [id number] Place of Service: - CSN: [id number] Suggested Modifer: CRISTOPHER Resident Present Suggested Level of Service: 00000 - Subsequent, Exp Prob Foc/Mod Complex 25 min Suggested Diagnosis: 433.01 - Stenosis, Basilar Artery Drew Sosa NP - 6:33 AM PDT [facility] Neuroscience ICU Progress Note Team Pager: [phone] Attendin Patient name: Miles Sylvester Author: DREW CISNEROS NP Date of Service: 09/04/2010 Intensive Care Attending: Marisela Alford MD Attending Provider: Jadiel Merida MD ICU day # 2. ID: Miles Sylvester is a 55 y.o. 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 Patient was initially seem in [facility] with acute onset of dizziness, ataxia and dysarthria. His symptoms initial ly resolved and patient was sent home. However the next morning the symptoms returned and he has an MRI/MRA which showed diffusion restriction and basilar stenosis respectively. He was transferred to [facility] for further eval. 24 HOUR EVENTS: Patient went to angio yesterday. Basilar artery stenosis was 40-50% and was not stented. PE: Neurological: Awake, oriented x3, follows commands, PERRL, EOMI, mild right eye ptosis, no dysarthria, tongue ML, no pronator drift, FTN intact, decrease in sensation to left mid-fac e otherwise intact. WALTERS 5/5 equal strength. Sedation none Analgesia: none Cardiovascular: Rhythm: normal sinus rhythm Cuff Pressures: Systolic (24hrs), Min:101 mmHg, Max:185 mmHg Diastolic (24hrs), Min:56 mmHg, Max:123 mmHg Respiratory: Breath sounds: clear bilaterally Resp Av.1 Min: 14 Max: 22 SpO2 Av.7 % Min: 93 % Max: 100 % Is this patient intubated? 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 Nutrition:Regular/thin Ulcer Prophylaxis: Ranitidine Lab Results Lab Test Name Results Date/Time TBILI 0.6 09/02/10 AP 82 09/02/10 TP 7.6 09/02/10 ALB 3.7 09/04/10 AST 20 09/02/10 ALT 24 09/02/10 / Renal: Soliman catheter: No Input/Output Summary: Intake/Output Summary (Last 24 hours) at 09/04/10 0633 Last data filed at 09/04/10 0400 Gross per 24 hour Intake 2000 ml Output 2250 ml Net -250 ml Intake/Output Summary (since admission) at 09/02/10 1914 Last data filed at 09/04/10 0400 Gross for the last 2 days Intake 2460 ml Output 2750 ml Net since Admission -290 ml IV Fluids: Normal saline w/ 20 mEq K+ Recent Labs Basename 09/04/10 0130 09/03/10 0202 09/03/10 0111 09/02/10 2236 09/02/10 1935 NA 136 -- Not Recd 137 139 K 3.7 -- Not Recd 3.6 4.1 CL 103 -- Not Recd 99 103 BICARB 27 -- Not Recd 29 -- BUN 11 -- Not Recd 10 12 CR 1.10 -- Not Recd 0.86 0.7 CA 8.8 -- Not Recd 9.5 -- MG 2.2 Combined. -- 2.2 -- PO4 4.0 -- Not Recd -- -- HEME/ID: TM: Temp (24hrs), Av.9 C (98.5 F), Min:36.7 C (98.1 F), Max:37.4 C (99.3 F) DVT Scan done: Yes. If yes, date: 09/03/10 Thromboprophylaxis: SCDs Head of Bead: >30 degrees Recent Labs Basename 09/04/10 0130 09/02/10 2236 09/02/10 1935 WBC 11.1* 10.3 -- HB 15.6 15.8 17.3 HCT 46.3 47.8 51 PLT 303 329 -- NEUTROPERC -- -- -- BANDPCT -- -- -- LYMPHPERC -- -- -- MONOPERC -- -- -- BASOPERC -- -- -- EOSPERC -- -- -- Recent Labs Basename 09/03/10 0202 INR 1.04 PT -- Infection Control: Lines: Insertion Date: Location: Inspected & Indication Reviewed ART: CVL: PICC: EVD Soliman: Endocrine: Lab Results Lab Test Name Value Date GLU 105* 09/04/2010 GLU 126* 09/03/2010 GLU 106* 09/03/2010 GLU 105* 09/03/2010 LastCBG CBG Result : 126 (09/03/10 1727) Glycemic Control: insulin sliding Insulin: 0 units per hour for the last 24 hours. Musculoskeletal/Skin: Extremities: are warm and well perfused Skin: no rashes or significant breakdown Current Medications: Current Inpatient Medications Medication Dose Route Frequency acetaminophen (aka TYLENOL) tablet 650 mg 650 mg Oral Q4H PRN aspirin tablet 325 mg 325 mg Oral DAILY clopidogrel (aka PLAVIX) tablet 75 mg 75 mg Oral DAILY dextrose 50 % injection 25 mL 25 mL Intravenous PRN fentaNYL citrate (PF) (aka SUBLIMAZE) injection 50-100 mcg 50-100 mcg Intravenous Q1H PRN glucagon (aka GLUCAGEN) injection 1 mg 1 mg Intramuscular PRN glucose chewable tablet 16 g 16 g Oral Q15MIN PRN guar gum (aka BENEFIBER) oral powder 1 Packet 1 Packet Oral DAILY PRN insulin regular (aka HUMULIN R) injection 1-16 Units 1-16 Units Subcutaneous PC and HS metoclopramide (aka REGLAN) injection 5-10 mg 5-10 mg Intravenous Q4H PRN NaCl 0.9%-KCl 20 mEq/L IV infusion Intravenous CONTINUOUS ondansetron (aka ZOFRAN) injection 4 mg 4 mg Intravenous Q8H PRN ondansetron (aka ZOFRAN) injection 4 mg 4 mg Intravenous Q12H PRN oxyCODONE immediate release (aka ROXICODONE) tablet 5-15 mg 5-15 mg Oral Q3H PRN polyethylene glycol (aka MIRALAX) powder 17 g 17 g Oral DAILY PRN potassium chloride IV 10 mEq 10 mEq Intravenous PRN potassium chloride SR (aka K-DUR) tablet 10-40 mEq 10-40 mEq Oral PRN ranitidine (aka ZANTAC) tablet 150 mg 150 mg Oral BID rosuvastatin (aka CRESTOR) tablet 40 mg 40 mg Oral DAILY senna-docusate (aka SENOKOT S) 8.6-50 mg 1 Tab 1 Tab Oral BID simethicone chew (aka MYLICON) tablet 80 mg 80 mg Oral TID PRN simvastatin (aka ZOCOR) tablet 40 mg 40 mg Oral QPM Assessment & Plan: 55 yo male with basilar artery stenosis, post circ infarcts Neurological: 1. S/p CVA, stroke work up -neuro checks q1 hr -pain/antinausea meds -asa, plavix, statin Cardiovascular: HDS. No active issues. Respiratory: No acute issues. IS, OOB when able with PT/OT. GI: ADAT, GI prophy / Renal: UO adequate. I/O goal even. Na 135-145. Follow and replete electrolytes. Heme/ID: Afebrile. Follow temp. Serial HCTs post angio. Endocrine: Goal glucose <180 Musculoskeletal / Skin: SCDs, routine decub prevention. Disposition: ICU anticipate transfer to floor Code Status: full Activities: Mobilize, PT/OT Orthotics: none Goals: SBP <140 MAP > 65 ICP < 20 CPP > 70 Sodium Goals 135-145 Magnesium > 2 I/O goal Euvolemic: -500 to +500 Hgb > 9 Relevant Risks: This patient is currently at risk for the following: ischemic stroke; ar rhythmia; DVT/Pulmonary embolism. I spent 35 minutes actively and independently involved in the care and management of this patient who is critically ill and is being treated for central nervous system failure at t his time. [facility] DEPARTMENT: [id number] ICU NEURO Place of Service:- Inpatient Date of Service: 09/04/2010 CSN: [id number] Suggested Modifier: None Suggested CPT: 60837 - CRITICAL CARE, 1ST 30-74 MINUTES This patient has been staffed with Dr. Marisela Alford, attending physician, who agrees with the above assessment and plan. DORA Field NP Lou Mejias MD - 4:50 PM PDT VASCULAR NEUROLOGY PROGRESS NOTE Interval events: Angio completed, 40-50% stenosis of the basilar artery at AICA's over a s hort segment, no intervention. PE: Last Vitals: BP 138/86 | Pulse 70 | Temp 37.4 C (99.3 F) | RR 18 | Wt 92.9 kg (204 lb 1 2.9 oz) | SpO2 99% 24 Hour Vital Min/Max: Systolic (24hrs), Min:101 mmHg, Max:195 mmHg Diastolic (24hrs), Min:65 mmHg, Max:100 mmHg Pulse Min: 50 Max: 79 Temp Min: 36.7 C (98.1 F) Max: 37.4 C (99.3 F) Resp Min: 7 Max: 22 SpO2 Min: 93 % Max: 100 % Intake/Output Summary (Last 24 hours) at 09/03/10 1650 Last data filed at 09/03/10 1600 Gross per 24 hour Intake 960 ml Output 2100 ml Net -1140 ml Neurological: Mental Status: General: Awake, alert & oriented Language: follows commands, mild dysarthria Cranial Nerves: II: PERRL, EOMI III, IV, : Gaze conjugate V: Sensation grossly intact on the left and right VII: R droop IX, X: normal cough XI: Normal shrug Motor: Delt Tri Bi WE DI HF KE APF ADF Left 5 5 5 5 5 5 5 5 5 Right 5 5 5 5 5 5 5 5 5 DTRs: 2+ throughout Unstable gait, unable to stand on his own. FTN intact b/l HTS intact b/l Positive Romberg CBC with diff last 72 hours (or 3 results) Recent Labs Basename 09/02/10 2236 09/02/10 1935 WBC 10.3 -- HB 15.8 17.3 HCT 47.8 51 PLT 329 -- NEUTROPERC -- -- BANDPCT -- -- LYMPHPERC -- -- MONOPERC -- -- BASOPERC -- -- EOSPERC -- -- Chemistries: Last 72 Hours (or 3 results): Recent Labs Basename 09/03/10 0840 09/03/10 0602 09/03/10 0202 09/03/10 0111 09/02/106 NA -- -- -- Not Recd 137 K -- -- -- Not Recd 3.6 CL -- -- -- Not Recd 99 BICARB -- -- -- Not Recd 29 BUN -- -- -- Not Recd 10 CR -- -- -- Not Recd 0.86 GLU 106* 105* -- Not Recd -- CA -- -- -- Not Recd 9.5 MG -- -- Combined. -- 2.2 PO4 -- -- -- Not Recd -- Imaging: CTA 09/02: 1. Less than 50% stenosis at the origin of the left vertebral artery and the basilar artery. The caliber change involving the right vertebral artery, as it becomes intradural, is felt to likely be normal. 2. Old left basal ganglia / internal capsule lacunar infarct. 3. No hemodynamically significant carotid stenoses. 4. Small lymph nodes within all of the cervical susan distributions are more numerous than typical. There is no adenopathy. Assessment & Plan: 55 yo otherwise healthy M transferred from [facility] for basila r artery stenosis. Angio revealed approx 40-50% stenosis of the basilar artery. Plan: - Cont ASA lifeling - Cont plavix x 3 mos - Start Crestor, goal LDL < 70 - Tight BP control, goal SBP < 140 - Transfer to floor in am - PT/OT/SP [place] [id number] Marisela Chandler Md - 08/22 1:50 PM PDTINR BRIEF POST-PROCEDURE NOTE Procedure Date: 09/03/2010 1:50 PM Author: MARISELA ALFORD MD Attending Physician: Prashanth Assistants: Bertha Procedure performed: Diagnostic cerebral angiogram Findings: 40-50% stenosis of the basilar artery at AICA's over a short segment. Complications: None Closure: Starclose; flat x 2h Marisela Chandler Md - 10:40 AM PDTNSICU ATTENDING Author: Marisela Alford MD I have personally seen and evaluated the patient and agree with the assessment and plan as described in the note of Ramon Cisneros NP. Briefly, this is a 55 y.o. 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 He had a MRA showed basilar stenosis. He was transferr ed to [facility] ED for further evaluation. PMH: none Home meds: none 24h events: mildly ataxic, hypertensive up to 190s, CTA with mod stenosis at VB junction; a ngio shows 40% stenosis of basilar at AICA. A/P: 55 yo with posterior circulation stroke and basilar stenosis not significant enough fo r stenting. At risk for deterioration due to recurrent stroke. -asa/plavix + intensive statin therapy + intensive [facility]) -mobilize CT: 35 minutes (in addition to procedures) [facility] DEPARTMENT: [id number] CRITICAL CARE Place of Service: Inpatient Date of Service: 09/03/2010 CSN: [id number] Suggested Level of Care: 07373 - CRITICAL CARE, 1ST HOUR EACH DAY Jadiel Bright MD - 08/22 9:59 AM PDT STROKE I saw and evaluated patient. I reviewed note HO and concur. 55 y.o. 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 He had a MRA showed basilar stenosis. He was transferred to [facility] ED for f urther evaluation. 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 Patient stable. Need to exclude severe basilar stenos is with angio- if high grade risk of major stroke/ is very high and would justify risk of angioplasty. P) Loaded with ASA/Plavix Angio today If > 70% Plasty In either case aggressive medical" ASA/Plavix LDL < 70 BP < 140 Stroke education provided to patient including stroke warning signs, need to dial 911, risk factor reduction, stroke medications and F/U reviewed. [facility] DEPARTMENT: [facility] STROKE [facility] - [id number] Place of Service: - CSN: [id number] Suggested Modifer: GC Resident Present Suggested Level of Service: 79983 - Initial, Comp; High complex 70 min Suggested Diagnosis: 433.01 - Stenosis, Basilar Artery Simon Gunderson - 09/03/2010 9:52 AM PDTTransthoracic echocardiogram completed. Final report to follow. Drew Sosa NP - 011 7:43 AM PDT 7NSICU Neuroscience ICU Progress Note Team Pager: [phone] Attendin Patient name: Miles Sylvester Author: DREW CISNEROS NP Date of Service: 09/03/2010 Intensive Care Attending: Marisela Alford MD Attending Provider: Jadiel Merida MD ICU day # 2. ID: Miles Sylvester is a 55 y.o. 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 Patient was initially seem in [facility] with acute onset of dizziness, ataxia and dysarthria. His symptoms initial ly resolved and patient was sent home. However the next morning the symptoms returned and he has an MRI/MRA which showed diffusion restriction and basilar stenosis respectively. He was transferred to [facility] for further eval. 24 HOUR EVENTS: Upon arrival to [facility] patient went to angio which showed stenosis but a guerra nt basilar artery. All other vasculature was patent. PE: Neurological: Awake, oriented x3, follows commands, PERRL, EOMI, face symmetrical, slight dysarthria, tongue ML, no pronator drift, FTN intact, decrease in sensation to left mid-face otherwise intact. WALTERS 5/5 equal strength. Sedation none Analgesia: none Imaging: CTA Head: 1. Less than 50% stenosis at the origin of the left vertebral artery and the basilar artery. The caliber change involving the right vertebral artery, as it becomes intradural, is felt to likely be normal. 2. Old left basal ganglia / internal capsule lacunar infarct. 3. No hemodynamically significant carotid stenoses. 4. Small lymph nodes within all of the cervical susan distributions are more numerous than typical. There is no adenopathy. Cardiovascular: Rhythm: normal sinus rhythm Cuff Pressures: Systolic (24hrs), Min:134 mmHg, Max:195 mmHg Diastolic (24hrs), Min:65 mmHg, Max:100 mmHg Arterial Line Pressure: No Data Recorded No results found for this basename: TROPONIN:3 in the last 72 hours Respiratory: Breath sounds: clear bilaterally Resp Av.7 Min: 7 Max: 22 SpO2 Av.4 % Min: 94 % Max: 97 % Is this patient intubated? 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 Nutrition:NPO Ulcer Prophylaxis: ranitidine Lab Results Lab Test Name Results Date/Time TBILI 0.6 09/02/10 AP 82 09/02/10 TP 7.6 09/02/10 ALB 4.3 09/02/10 AST 20 09/02/10 ALT 24 09/02/10 / Renal: Soliman catheter: No Input/Output Summary: Intake/Output Summary (Last 24 hours) at 09/03/10 0743 Last data filed at 09/03/10 0700 Gross per 24 hour Intake 510 ml Output 1000 ml Net -490 ml Intake/Output Summary (since admission) at 09/02/101913 Last data filed at 09/03/10 0700 Gross for the last 1 days Intake 510 ml Output 1000 ml Net since Admission -490 ml IV Fluids: Normal saline w/ 20 mEq K+ Recent Labs Basename 09/03/10 0202 09/02/10223509/02/101934 NA -- 137 139 K -- 3.6 4.1 CL -- 99 103 BICARB -- 29 -- BUN -- 10 12 CR -- 0.86 0.7 CA -- 9.5 -- MG Combined. 2.2 -- PO4 -- -- -- HEME/ID: TM: Temp (24hrs), Av.9 C (98.5 F), Min:36.8 C (98.2 F), Max:37.1 C (98.7 F) DVT Scan done: Yes. If yes, date: 09/03/10 neg for DVT Thromboprophylaxis: SCDs Head of Bead: >30 degrees Recent Labs Basename 09/02/10223509/02/101934 WBC 10.3 -- HB 15.8 17.3 HCT 47.8 51 PLT 329 -- NEUTROPERC -- -- BANDPCT -- -- LYMPHPERC -- -- MONOPERC -- -- BASOPERC -- -- EOSPERC -- -- Recent Labs Basename 09/03/10201 INR 1.04 PT -- Infection Control: Lines: Insertion Date: Location: Inspected & Indication Reviewed ART: CVL: PICC: EVD Janny: Endocrine: Lab Results Lab Test Name Value Date GLU 105* 09/03/2010 GLU 117* 09/02/2010 GLU 131* 09/02/2010 LastCBG CBG Result : 105 (09/03/10 0602) Glycemic Control: insulin sliding Insulin: 0 units per hour for the last 24 hours. Musculoskeletal/Skin: Extremities: are warm and well perfused Skin: no rashes or significant breakdown Current Medications: Current Inpatient Medications Medication Dose Route Frequency acetaminophen (aka TYLENOL) tablet 650 mg 650 mg Oral Q4H PRN aspirin tablet 325 mg 325 mg Oral DAILY clopidogrel (aka PLAVIX) tablet 75 mg 75 mg Oral DAILY dextrose 50 % injection 25 mL 25 mL Intravenous PRN fentaNYL citrate (PF) (aka SUBLIMAZE) injection 50-100 mcg 50-100 mcg Intravenous Q1H PRN glucagon (aka GLUCAGEN) injection 1 mg 1 mg Intramuscular PRN glucose chewable tablet 16 g 16 g Oral Q15MIN PRN guar gum (aka BENEFIBER) oral powder 1 Packet 1 Packet Oral DAILY PRN insulin regular (aka HUMULIN R) injection 1-16 Units 1-16 Units Subcutaneous PC and HS metoclopramide (aka REGLAN) injection 5-10 mg 5-10 mg Intravenous Q4H PRN NaCl 0.9%-KCl 20 mEq/L IV infusion Intravenous CONTINUOUS ondansetron (aka ZOFRAN) injection 4 mg 4 mg Intravenous ONCE ondansetron (aka ZOFRAN) injection 4 mg 4 mg Intravenous Q8H ondansetron (aka ZOFRAN) injection 4 mg 4 mg Intravenous Q8H PRN ondansetron (aka ZOFRAN) injection 4 mg 4 mg Intravenous Q12H PRN oxyCODONE immediate release (aka ROXICODONE) tablet 5-15 mg 5-15 mg Oral Q3H PRN polyethylene glycol (aka MIRALAX) powder 17 g 17 g Oral DAILY PRN potassium chloride IV 10 mEq 10 mEq Intravenous PRN potassium chloride SR (aka K-DUR) tablet 10-40 mEq 10-40 mEq Oral PRN ranitidine (aka ZANTAC) tablet 150 mg 150 mg Oral BID senna-docusate (aka SENOKOT S) 8.6-50 mg 1 Tab 1 Tab Oral BID simethicone chew (aka MYLICON) tablet 80 mg 80 mg Oral TID PRN simvastatin (aka ZOCOR) tablet 40 mg 40 mg Oral QPM Assessment & Plan: 55 yo male with basilar artery stenosis, post circ infarcts Neurological: 1. S/p CVA, stroke work up -neuro checks q1 hr -angio today -pain/antinausea meds -asa, plavix, statin Cardiovascular: HDS. No active issues. Respiratory: No acute issues. IS, OOB when able. GI: NPO until after angio then ADAT. / Renal: UO adequate. I/O goal even. Na 135-145. Follow and replete electrolytes. Heme/ID: Afebrile. Follow temp. Serial HCTs post angio. Endocrine: Goal glucose <180 Musculoskeletal / Skin: SCDs, routine decub prevention. Disposition: ICU Code Status: full Activities: Bed rest, flat after angio Orthotics: none Goals: SBP <140 MAP > 65 ICP < 20 CPP > 70 Sodium Goals 135-145 Magnesium > 2 I/O goal Euvolemic: -500 to +500 Hgb > 9 Relevant Risks: This patient is currently at risk for the following: ischemic stroke; ar rhythmia and myocardial infarction. I spent 45 minutes actively and independently involved in the care and management of this patient who is critically ill and is being treated for central nervous system failure at t his time. [facility] DEPARTMENT: [id number] ICU NEURO Place of Service:- Inpatient Date of Service: 09/03/2010 CSN: [id number] Suggested Modifier: None Suggested CPT: 08950 - CRITICAL CARE, 1ST 30-74 MINUTES This patient has been staffed with Dr. Marisela Alford, attending physician, who agrees with the above assessment and plan. DORA Field NP documented in this en counter H&P Notes Jasmine tSone MD - 09/03/2010 12:52 PM PDT INTERVENTIONAL NEURORADIOLOGY PRE-PROCEDURE HISTORY AND PHYSICAL PLANNED PROCEDURE: dx cerebral ag, possible basilar artery stenting HISTORY OF PRESENT ILLNESS: 55 y/o male with dizziness and gait difficulty, presented to outside hospital, underwent im aging which demonstrated post circ infarcts and basilar stenosis. Referred for angiogram and possible stenting. No past medical history on file. No past surgical history on file. No Known Allergies Current Medication List Not on File TAKING COUMADIN OR GLUCOPHAGE? No TAKING ASPIRIN AND PLAVIX ADEQUATE FOR INTERVENTION? Yes Lab Results Component Value Date NA 137 09/02/2010 K 3.6 09/02/2010 CL 99 09/02/2010 BICARB 29 09/02/2010 BUN 10 09/02/2010 CR 0.86 09/02/2010 GLU 106* 09/03/2010 Lab Results Component Value Date WBC 10.3 09/02/2010 HCT 47.8 09/02/2010 PLT 329 09/02/2010 Lab Results Component Value Date INR 1.04 09/03/2010 FOCUSED PHYSICAL EXAMINATION: ASA SCORE: 3 1. Otherwise Healthy Person 2. Mild systemic disturbance due to general disease or surgical illness 3. Moderate systemic disturbance due to general disease or surgical illness 4. Severe systemic illness; incapacitating threat to life 5. Moribund; not expected to survive >24 hours with or without surgery PLANNED ACCESS POINT: RIGHT COMMON FEMORAL ARTERY CURRENT LEVEL OF PAIN: MILD PLANNED LEVEL OF SEDATION: General anesthesia PRESENT P.O. STATUS: NPO The risk of angiography and stenting were explained to patient or patient's surrogate in de tail, including risks, benefits, alternatives, and indications. All questions were answered in detail. The patient or the patient's surrogate directs us to proceed. Consent was signed and placed in chart. Julia Lara P A - 09/03/2010 3:54 AM PDT NEUROICU ADMISSION NOTE Author: KAMI BOYLE NSICU att: Dr. Dempsey Stroke att: Dr. Merida 09/02/2010 ICU#1 HPI: Miles Sylvester is a 55 y.o. male hx 40 yr pk hx tobacco use with no other known past med ical history who was transferred from [facility] with concern for basilar artery thr ombosis and brainstem stroke. Pt states that when he got off work about 1730 the day prior t o admission he had acute onset of dizziness, gait imbalance where he was constantly falling to the right and dysarthria. He decided to go the the ED in [place]. He had a CT head at [facility] that did not show any acute blood and his symptoms were resolving. The stroke servi ce was called and requested CTA or MRA and by this time the VENTURA symptom had reportedly resolv ed. He states the difficulty with balance and dizziness symptoms continued to worsen and con tinue now. Apparently MRI/MRA could not be performed until the next morning at OSH. The MRI showed diffusion restriction and the MRA showed basilar stenosis. He was transferred to [facility] ED for further evaluation. Upon arrival at [facility] ED the Neurology team was called and he was taken immediately to CTA. When he returned from CTA he reported that his symptoms of dizzin ess, ataxia and dysarthria had been stable all day. CTA showed stenosis but patent basilar a rtery and the rest of his cerebrovasculature was patent as well. 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 Lives in [place], [place] Social History Main Topics Smoking status: Current Everyday Smoker. 1 ppd x 40 yrs Smokeless tobacco: Never Used Alcohol Use: Yes once a month Drug Use: No Sexually Active: Not on file Other Topics Concern Not on file Social History Narrative No narrative on file Family History: Sister- of complications of COPD Mother-78 yo-alive and well-BrCa survivor. Father- at age 40 yo of liver dz and complications of alcoholism. Denies fmhx NC, DM, kidney dz. Review of Systems: A complete review of systems was performed and is negative except as per HPI. PE: BP 145/97 | Pulse 60 | Temp 37 C (98.6 F) | RR 17 | Wt 92.9 kg (204 lb 12.9 oz) | SpO2 95% Constitutional: WD/WN, NAD Admission Weight: Weight: 92.9 kg (204 lb 12.9 oz) (09/02/10 2130) Neurological: Mental Status: General: Awake, alert and oriented to person, place and time Concentration and attention span: Normal Fund of knowledge: Adequate recent and remote recall Language: Fluent and articulate without evidence of aphasia or dysarthria Cranial Nerves: I: Not tested II: PERRL, visual alford full to confrontation bilaterally III, IV, : Gaze conjugate, EOMI V: Sensation intact and symmetric to light touch V1-V3 VII: Symmetric facial motor function bilaterally VIII: Intact to finger rub bilaterally IX: Palate elevates symmetrically X: Normal cough XI: Normal shrug bilaterally XII: Tongue protrudes midline Motor: NO pronator drift Delt Tri Bi WE WF DI HF HE KF KE APF ADF Left 5 5 5 5 5 5 5 5 5 5 5 5 Right 5 5 5 5 5 5 5 5 5 5 5 5 Sensation: Light touch: Intact and symmetric in the bilateral upper and lower extremities. Pin prick: Intact and symmetric in the bilateral upper and lower extremities. DTRs: Biceps Triceps Brachioradialis Knee Ankle Left 2+ 2+ 2+ 2+ 2+ Right 2+ 2+ 2+ 2+ 2+ Coordination: Fine finger movements are of normal speed and fluency Rapid alternating movements are of normal speed and fluency Finger to nose is of normal speed, no action tremor, and no end-point dysmetria Heel to vernon is without any ataxia Heel tapping is of normal speed and fluency Gait:not tested. Pt becomes ataxic when sitting upright or standing. HEENT: NCAT Cardiovascular: RRR, no m/r/g Respiratory: CTA B, no w/r/r GI: Soft, NT/ND NABS / Renal: Chemistries: Last 72 Hours (or 3 results): Recent Labs Basename 09/03/10 0602 09/03/10 0202 09/02/10 2236 09/02/10 1935 NA -- -- 137 139 K -- -- 3.6 4.1 CL -- -- 99 103 BICARB -- -- 29 -- BUN -- -- 10 12 CR -- -- 0.86 0.7 GLU 105* -- 117* 131* CA -- -- 9.5 -- MG -- Combined. 2.2 -- PO4 -- -- -- -- ID/HO: CBC with diff last 72 hours (or 3 results) Recent Labs Basename 09/02/10 2236 09/02/10 1935 WBC 10.3 -- HB 15.8 17.3 HCT 47.8 51 PLT 329 -- NEUTROPERC -- -- BANDPCT -- -- LYMPHPERC -- -- MONOPERC -- -- BASOPERC -- -- EOSPERC -- -- Endocrine: Last CBG's POC Lab Results Component Value Date GLU 105* 09/03/2010 GLU 117* 09/02/2010 GLU 131* 09/02/2010 Musculoskeletal: Extremities: No c/c/e Pulses: Good distal pulses, warm and well perfused Skin: No rashes or significant breakdown Lab Results Lab Test Name Results Date/Time TBILI 0.6 09/02/10 AP 82 09/02/10 TP 7.6 09/02/10 ALB 4.3 09/02/10 AST 20 09/02/10 ALT 24 09/02/10 No results found for this basename: PHENYTOIN:4 in the last 72 hours Recent Labs Basename 09/03/10 0202 INR 1.04 No results found for this basename: culture:5 Current Medications: Current Inpatient Medications Medication Dose Route Frequency acetaminophen (aka TYLENOL) tablet 650 mg 650 mg Oral Q4H PRN aspirin tablet 325 mg 325 mg Oral DAILY clopidogrel (aka PLAVIX) tablet 75 mg 75 mg Oral DAILY dextrose 50 % injection 25 mL 25 mL Intravenous PRN fentaNYL citrate (PF) (aka SUBLIMAZE) injection 50-100 mcg 50-100 mcg Intravenous Q1H PRN glucagon (aka GLUCAGEN) injection 1 mg 1 mg Intramuscular PRN glucose chewable tablet 16 g 16 g Oral Q15MIN PRN guar gum (aka BENEFIBER) oral powder 1 Packet 1 Packet Oral DAILY PRN insulin regular (aka HUMULIN R) injection 1-16 Units 1-16 Units Subcutaneous PC and HS metoclopramide (aka REGLAN) injection 5-10 mg 5-10 mg Intravenous Q4H PRN NaCl 0.9%-KCl 20 mEq/L IV infusion Intravenous CONTINUOUS ondansetron (aka ZOFRAN) injection 4 mg 4 mg Intravenous ONCE ondansetron (aka ZOFRAN) injection 4 mg 4 mg Intravenous Q8H ondansetron (aka ZOFRAN) injection 4 mg 4 mg Intravenous Q8H PRN ondansetron (aka ZOFRAN) injection 4 mg 4 mg Intravenous Q12H PRN oxyCODONE immediate release (aka ROXICODONE) tablet 5-15 mg 5-15 mg Oral Q3H PRN polyethylene glycol (aka MIRALAX) powder 17 g 17 g Oral DAILY PRN potassium chloride IV 10 mEq 10 mEq Intravenous PRN potassium chloride SR (aka K-DUR) tablet 10-40 mEq 10-40 mEq Oral PRN ranitidine (aka ZANTAC) tablet 150 mg 150 mg Oral BID senna-docusate (aka SENOKOT S) 8.6-50 mg 1 Tab 1 Tab Oral BID simethicone chew (aka MYLICON) tablet 80 mg 80 mg Oral TID PRN simvastatin (aka ZOCOR) tablet 40 mg 40 mg Oral QPM IMAGING: CT/CTA head/neck done 09/02--show 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 Final RAD read pending. 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 Neurological: Complete the stroke workup. Lipids and A1C sent. TTE. q 1 hr neuro checks. Pain/nausea meds as per JUL. PT/OT/ST. -per stroke team recs, Plavix and ASA-loaded in prep for possible angio tomorrow. HEENT: No active issues. Cardiovascular: pt denies hx, htnsive to 160's in ICU, Hemodynamic goals: SBP 120-200. Respiratory: no issues. GI: No active issues. Ranit. / Renal: 24-hour I/O goal: even to +500 ml, Na+ goal: 135-145 , Total Fluids: Titrate t o goal. Replete electrolyes prn. ID/HO: follow hct, temp. Endocrine: No active issues. Cbg, iss. Musculoskeletal / Skin: No active issues. Routine decubitus ulcer prevention. Routine ICU Care: Lines: piv's Sodium goal: 135-145 Feeding: NPO xc for meds pending possible procedures. ADAT to reg diet thereafter. Analgesia: see jul Sedation: 0 Thromboprophylaxis: scd. dvt scan LE's--pending. 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 At risk for further stroke, hemorrhagic conversion, edema, herniation syndrome. I have personally and independe ntly spent 65 min CCT involved in care and mgmt of pt. This patient has been staffed with Dr. Dempsey, attending physician, who agrees with the above assessment and plan. WHITNEY Paulino PA [facility] DEPARTMENT: [id number] ICU NEURO Place of Service:- Inpatient Date of Service: 09/02/2010 CSN: [id number] Suggested Modifier: None Suggested CPT: 15177 - CRITICAL CARE, 1ST 30-74 MINUTES Wisam Padgett Md - 09/02/2010 11:39 PM PDT STROKE H&P/CONSULT NOTE Author: WISAM LAW MD Consult Date/Time: 09/02/2010 11:39 PM Requesting Attending: Jadiel Merida MD HPI: Miles Sylvester is a 55 y.o. male with no significant past medical history who was transf erred from [facility] with concern for basilar artery thrombosis and brainstem strok e. Mr. Sylvester states that when he got off work about 1730 the day prior to admission he had acute onset of dizziness, gait imbalance where he was constantly falling to the right and dy sarthria. He decided to go the the ED in [place]. He had a CT head at [place] that did n ot show any acute blood and his symptoms were resolving. The stroke service was called and r equested CTA or MRA and by this time the symptoms had reportedly resolved completely. We alis e told that angiography could not be performed until the morning. Early the day of admission he had an MRI/MRA and when he woke up his symptoms had returned. The MRI showed diffusion r estriction and the MRA showed basilar stenosis. He was transferred to [facility] ED for further ev aluation. Upon arrival at [facility] ED the Neurology team was called and he was taken immediately to CTA. When he returned from CTA he reported that his symptoms of dizziness, ataxia and dy sarthria had been stable all day. CTA showed stenosis but patent basilar artery and the rest of his cerebrovasculature was patent as well. PMH: No past medical conditions Home Meds: No home meds. Allergies: No Known Allergies Social History: History Social History Marital Status: Single Spouse Name: N/A Number of Children: N/A Years of Education: N/A Occupational History Not on file. Social History Main Topics Smoking status: Current Everyday Smoker Smokeless tobacco: Never Used Alcohol Use: Yes once a month Drug Use: No Sexually Active: Not on file Other Topics Concern Not on file Social History Narrative No narrative on file Family History: no history of neurologic disorders. Review of Systems: A complete review of systems was performed and is negative except as per HPI. PE: BP 195/100 | Pulse 50 | Temp 36.9 C (98.4 F) | RR 19 | Wt 92.9 kg (204 lb 12.9 oz) | Sp O2 96% Constitutional: WD/WN, NAD Admission Weight: Weight: 92.9 kg (204 lb 12.9 oz) (09/02/102129) Neurological: Category Description Score 1a. Level of Consciousness 0=Alert 1=Drowsy 2=Stuperous 3=Coma 0 1b. LOC Questions (month, age) 0=Both correct 1=One correct 2=Incorrect 0 1c. LOC Commands (Open/close eyes, make fist, let go) 0=Obeys both correctly 1=Obeys one correctly 2=Incorrect 0 2. Best Gaze (Eyes open, patient follows examiner's finger or face) 0=Normal 1=Partial gaze palsy 2=Forced gaze deviation 0 3. Visual Alford (Introduce visual stimulus/threat into pt's visual field quadrants) 0=No visual loss 1=Partial hemianopia 2=Complete hemianopia 3=Bilateral hemianopia (blind) 0 4. Facial Paresis (Show teeth, raise eyebrows and squeeze eyes shut) 0=Normal 1=Minor 2=Partial 3=Complete 1 5a. Motor Left Arm (Elevate arm to 90 deg if sitting, 45 if supine, hold for 10 seconds) 0=No drift 1=Drift 2=Can't resist gravity 3=No effort against gravity 4=No movement X= Untestable (joint fused or amputaion) 0 5b. Motor Right Arm As in 5a 0 6a. Motor Left Leg (Elevate to 30 deg with pt supine, hold for 5 seconds) As in 5a 0 6b. Motor Right Leg As in 5a 0 7. Limb Ataxia (finger, nose, ataxia out of proportion to weakness) 0=No ataxia 1=Partial loss 2=Severe loss 0 8. Sensory (pin prick to face, arm, trunk, leg. Compare side to side) 0=Normal 1=Partial loss 2=Severe loss 0 9. Best Language (name an item, describe a picture, read a sentence) 0=No aphasia 1=Mild to moderate aphasia 2=Severe aphasia 3=Mute 0 10. Dysarthria (Evaluate speech clarity by patient repeating listed words) 0=Normal artic ulation 1=Mild to moderate slurring 2=Near to unintelligible or worse X=Intubated or other physical barrier 1 11. Extinction and Inattention (Use information from prior testing to identify neglect or d ouble simultaneous stimuli testing) 0=No neglect 1=Partial neglect 2=Complete neglect 0 TOTAL SCORE: 2 Mental Status: General: Normal activity, good hygiene, appropriate appearance. Level of consciousness: Awake, alert. Orientation: Oriented to person, place, time and situation. Concentration/Attention Span: Normal. Comprehension/Praxis: Able to perform a three step command. Neglect: Normal double simultaneous stimulation. Fund of Knowledge/memory: Adequate recent and remote recall. Language: Fluent without evidence of aphasia mild dysarthria. -Comprehension: Intact -Repetition: Intact -Naming: Intact Mood/Affect: Appropriate/congruent. Thought Content: Normal, no auditory or visual hallucinations. Insight/Judgement: Normal. Cranial Nerves: I: Not tested II: PERRL, visual alford full to confrontation bilaterally. III, IV, : Gaze conjugate, EOMI V: Sensation intact and symmetric to light touch V1-V3 VII: Decreased right nasolabial fold VIII: Intact to finger rub bilaterally IX: Palate elevates symmetrically X: Normal cough XI: Normal shrug bilaterally XII: Tongue protrudes midline Motor: Normal tone in all groups. No drift. Delt Tri Bi WE WF DI HF HE KF KE APF ADF Left 5 5 5 5 5 5 5 5 5 5 5 5 Right 5 5 5 5 5 5 5 5 5 5 5 5 Sensation: Light touch: Intact and symmetric in the bilateral upper and lower extremities. Temp: Intact and symmetric in the bilateral upper and lower extremities. Vibration: Intact and symmetric in the bilateral upper and lower extremities. Pin prick: Intact and symmetric in the bilateral upper and lower extremities. Proprioception: Intact and symmetric in the bilateral upper and lower extremities. DTRs: Biceps Triceps Brachioradialis Knee Ankle Left 2+ 2+ 2+ 2+ 2+ Right 2+ 2+ 2+ 2+ 2+ Plantar response is flexors bilaterally Hoffmans sign is absent bilaterally Coordination: Fine finger movements are of normal speed and fluency Finger to nose is of normal speed, no action tremor, and no end-point dysmetria Heel to vernon is without any ataxia Rapid alternating movements are of normal speed and fluency Heel tapping is of normal speed and fluency Truncal ataxia when seated Gait: deferred due to truncal ataxia and report of falls. Head: NCAT Eyes: No scleral icterus, conjunctiva pink. Mouth: Moist mucus membranes Cardiovascular: RRR, no m/r/g Respiratory: CTA B, no w/r/r GI: Soft, NT/ND NABS Skin: No rashes or significant breakdown on visible skin Chemistries Last 96 Hours (or 3 results): Recent Labs Basename 09/02/10223509/02/101934 NA 137 139 K 3.6 4.1 CL 99 103 BICARB 29 -- BUN 10 12 CR 0.86 0.7 CA 9.5 -- MG -- -- PO4 -- -- AST 20 -- ALT 24 -- TBILI 0.6 -- AP 82 -- ALB 4.3 -- TP 7.6 -- CBC with diff last 96 hours (or 3 results) Recent Labs Basename 09/02/10223509/02/101934 WBC 10.3 -- HB 15.8 17.3 HCT 47.8 51 PLT 329 -- NEUTROPERC -- -- BANDPCT -- -- LYMPHPERC -- -- MONOPERC -- -- BASOPERC -- -- EOSPERC -- -- Lab Results Lab Test Name Results Date/Time TBILI 0.6 09/02/10 AP 82 09/02/10 TP 7.6 09/02/10 ALB 4.3 09/02/10 AST 20 09/02/10 ALT 24 09/02/10 Current Medications: Current Inpatient Medications Medication Dose Route Frequency aspirin tablet 325 mg 325 mg Oral DAILY Clopidogrel (aka PLAVIX) tablet 600 mg 600 mg Oral ONCE clopidogrel (aka PLAVIX) tablet 75 mg 75 mg Oral DAILY fentaNYL citrate (PF) (aka SUBLIMAZE) injection 50-100 mcg 50-100 mcg Intravenous Q1H PRN guar gum (aka BENEFIBER) oral powder 1 Packet 1 Packet Oral DAILY PRN metoclopramide (aka REGLAN) injection 5-10 mg 5-10 mg Intravenous Q4H PRN metoclopramide (aka REGLAN) injection 5-10 mg 5-10 mg Intravenous Q4H PRN NaCl 0.9%-KCl 20 mEq/L IV infusion Intravenous CONTINUOUS ondansetron (aka ZOFRAN) injection 4 mg 4 mg Intravenous POSTPROCEDURE ONCE ondansetron (aka ZOFRAN) injection 4 mg 4 mg Intravenous Q8H ondansetron (aka ZOFRAN) injection 4 mg 4 mg Intravenous Q8H PRN ondansetron (aka ZOFRAN) injection 4 mg 4 mg Intravenous Q12H PRN ondansetron (aka ZOFRAN) injection 4 mg 4 mg Intravenous ONCE ondansetron (aka ZOFRAN) injection 4 mg 4 mg Intravenous Q8H ondansetron (aka ZOFRAN) injection 4 mg 4 mg Intravenous Q8H PRN ondansetron (aka ZOFRAN) injection 4 mg 4 mg Intravenous Q12H PRN oxyCODONE immediate release (aka ROXICODONE) tablet 5-15 mg 5-15 mg Oral Q3H PRN polyethylene glycol (aka MIRALAX) powder 17 g 17 g Oral DAILY PRN potassium chloride (aka KAOCHLOR) liquid 10-40 mEq 10-40 mEq Oral PRN potassium chloride IV 10 mEq 10 mEq Intravenous PRN ranitidine (aka ZANTAC) tablet 150 mg 150 mg Oral BID senna-docusate (aka SENOKOT S) 8.6-50 mg 1 Tab 1 Tab Oral BID simethicone chew (aka MYLICON) tablet 80 mg 80 mg Oral TID PRN IMAGING: Measured at 60% stenosis by overnight resident services manager. 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 Assessment: Miles Sylvester is a 55 y.o. year old male here with basilar artery stenosis and s mall brainstem stroke. We will admit him to the NSICU for monitoring. Given that there was n o evidence of thrombus but more of a stenotic lesion we will load with Plavix and ASA in pre paration for potential angiography and stent in the morning. We will also check HbA1c and li pids. We would like to keep his SBP >120 and higher if needed if he develops new symptoms ab ove that SBP. Allow permissive HTN. Recommendations: - Plavix 600mg once, continue ASA 325mg daily and Plavix 75mg daily - SBP > 120 - q1 hr neuro checks in NSICU - call neuro resident immediately with any exam change. - eval for possible angio/stent in the AM. This patient has been staffed with Dr. Iain Dasilva, attending physician, who agrees with the above assessment and plan. WISAM LAW MD Neurology Resident, PGY-2 documented in this encou nter Procedure Notes Other, Faculty - 09/11/2010 7:34 AM PDTAssociated Order(s): RADIOLOGY; RADIOLOGY ther, Faculty - 011 9:06 AM PDT ther, Faculty - 011 1:43 PM PDTAssociated Order(s): ANESTHESIA/SEDATION; ANESTHESIA/SEDATION ther, Faculty - 011 4:03 PM PDTAssociated Order(s): ANESTHESIA/SEDATION; ANESTHESIA/SEDATION ther, Faculty - 011 1:52 PM PDT ther, Faculty - 011 11:02 AM PDTAssociated Order(s): TRANSTHORACIC ECHOCARDIOGRAM, ADULT; TRANSTHORACIC ECHO CARDIOGRAM, ADULT documented in this [facility] nter ED Notes Kiana Dalton - 09/02/2010 9:12 PM PDTED Diagnosis Ischemic brainstem stroke PCP Forest Laurent MD- [phone]-[facility] Emergency Department Other providers/support [facility] (transferred from) Financial Resources/Information None listed vp construction narrative assessment 55 y/o male transferred via POV to [facility] from OSH rela missael to h/a and MRI determination of brainstem stroke. Please see physician summaries. Pt.wit h severe right eye pain, drooping right lid. Pt. With increasing ataxia. Pt. admit to Neuro Stoke Service/ICU. RADHA Salcedo [id number] signed by Kiana Dalton at 09/02/2010 9: 49 PM PDTAndria Abdi MD - 09/02/2010 7:20 PM PDTFormatting of this note might be diffe rent from the original. ANDRIA ABDI MD, ED Provider Note: HPI 55 y/o male with h/o tobacco abuse presents from OSH with brainstem stroke and basilar gay ry stenosis. 09/01/10 pt was at work when developed some right eye pain at ~ 1700. Had co-wo rkers take him home. There he developed some dysarthria ("slurred speech" per ) and atax ia ("wanting to fall to the right"). Pt also noticed dizziness with nausea that's mainly wit h movement. No fevers, chills. Pt taken to ED where initial CT head negative. Pt admitted and had MRI/MRA that showed possible basilar artery thrombosis. Due to limited resources OSH U stroke team was consulted. Dr. Merida advised trauma here for further treatment. Pt sent v ia POV. ROS 10 point ROS negative unless stated above in HPI PMH: none PSH: none No current facility-administered medications on file. No current outpatient prescriptions on file. Allergies No Known Allergies Social History reports that he has been using tobacco. He reports that he drinks alcohol. He reports th at he does not currently use illicit drugs. Family: reviewed and noncontributory ED Triage Vitals BP Temp Pulse Resp SpO2 09/02/10 1903 09/02/10 1903 09/02/10 1903 09/02/10 1903 09/02/10 1903 159/88 mmHg 37.1 C 65 15 95 % Physical Exam Physical Exam Nursing notes and vital signs reviewed BP 145/97 | Pulse 60 | Temp 36.8 C | RR 17 | Wt 92.9 kg (204 lb 12.9 oz) | SpO2 95% GEN: Pt is alert and oriented, well nourished, well developed, NAD HEENT: NC/AT, PERRLA, EOMI, orophargynx clear, Neck: supple, no cervical adenopathy, FROM Chest: CTAB, no w/r/r, symmetric rise, CV: RRR, nml S1/S2, no murmurs/rubs/gallops, ABD: soft, (+)BS, NT/ND, no rebound/guarding, n Ext: no clubbing/cyanosis/edema, strong distal pulses b/l, capillary refill < 2 seconds Neuro: slightly dysarthric speech, CN II-XII intact, 5/5 strength throughout, normal tone, normal sensation to light touch throughout, (+) truncal ataxia, 2+ DTRs, no pronator, Skin: warm, dry, no rashes, Psych: appropriate mood and behavior Lab Results Component Value Date NA 137 09/02/2010 K 3.6 09/02/2010 CL 99 09/02/2010 BICARB 29 09/02/2010 BUN 10 09/02/2010 CR 0.86 09/02/2010 GLU 117 09/02/2010 CA 9.5 09/02/2010 CTA head/neck -focal basilar artery stenosis of approximately 61 %; overestimated by outside MRA -right vert terminates as PICA -left anterior limb of internal capsule lacune -no hemorrhage -focal hyperintensity on outside diffusion sequence may be artifactual Clinical Course: Pt arrived by POV from [facility] and was triaged to acute side. IV/Monitors were placed. ECG done. I saw and evaluated the pt. Shortly, there after the pt was seen and e valuated by the cosigning doctor, who was involved in all pertinent aspects of pt care, exam ination, and management. I reviewed previous epic records and found transfer center note b ut no prior ED visits. Neurology resident noticed immediately of patient's arrival. CTA head/neck ordered. Given patient had bloodwork done at OSH felt only chem 8 POC needed at this point in time. Pt did not have any acute changes in his exam. Neurology consulted and Dr. Law responded. Decision made to take pt to Neuro ICU. Pt transferred without incident. Interventions: CTA head/neck Neurology consult MDM: Pt presents from OSH with brainstem stroke and basilar artery stenosis per OSH MRA/MRI. Th is was confirmed on CTA head and neck. Pt had unchanged neurologic exam. Imaging ordered pe r neurology request. Given his continued symptoms and basilar artery stenosis decision made to admit to neuro ICU. Assessment Basilar artery stenosis Ataxia Brainstem stroke Plan: Admit to Neuro ICU ANDRIA ABDI MD Giulia Velez RN - 09/02/2010 7:09 PM PDTPt asking for Dr. Merida and stroke team.Electronically si gned by Argentina Sarkar RN at 09/02/2010 7:10 PM Argentina Velez RN - 09/02/2010 7:07 PM PDTPt arrived to ED c/o stoke sx since yesterday at 1700 with increased weakness and dizz iness. Pt with right facial droop, slurred speech. No arm drift noted. Pt arrived to ED f [facility] with med records via POV. Family at bedside. Denies SOB, CP. Speak ing in full sentences. A&Ox4. Pt also reports nausea with movement. Vanessa Campos RN - 09/02/2010 2:37 P M PDTPresented last night at referring with c/o slurred speech, difficulty walking, headache , acute onset, right facial droop. Sent patient home, called back for MRI. Arrived at ED ref erring with intractable vomiting, medicated and MRI completed which was inconclusive. Patien t continues to be ataxic. 166/81 56 18 96%RA afebrile, coming POV, imaging and records comin g with. Continues to be nauseated. 20ga piv left ac. rnst, Mar Ross MD - 09/02/2010 2:22 PM PDTPt expected trans jose m from [facility] - Dr. Merida of Stroke Team accepted through ED. Pt with onset brainstem CVA yesterday - ataxia - MRI this AM shows tight midbasilar arter, transfer for likely intervention. CTA head/neck on arrival / page Neurology resident who will evaluate with stroke team.Elect ronically signed by Mar Dukes MD at 09/02/2010 2:25 PM PDTdocumented in this encounter Miscellaneous Notes Scan - Other, Faculty - 09/11/2010 7:33 AM PDT can - Other, Faculty - 09/11/2010 7:33 AM PDT can - Other, Faculty - 09/11/2010 7:33 AM PDT can - Other, Faculty - 09/11/2010 7:32 AM PDT can - Other, Faculty - 09/08/2010 11:14 PM PDT lan of Care - Mino Benitez RN - 09/05/2010 12:10 PM PDTProblem: Case Management Goals Goal: Discharge Needs Met Outcome: Goal met Date Met: 09/05/10 Met with patient and family re: dc plan. They feel confident that patient is safe to dc isa e with family; patient motivated to rehabilitate at home with family assist. He states he wi ll do his PT exercises and endorses that he has 24 hour assist. , patient happy with aide n. Patient has a walker with him and per RN, has been ambulating independently with FWW to athroom whilst here on 10K. Updated Denilson at [facility]. No further Case Mgmt needs [place] [id number] andoff - Evelyn Barker - 09/05/2010 6:38 AM PDTNursing Handoff Report Primary focus of stay: Basilar artery stroke Pertinent physical findings: Ataxic gait. Ptosis and facial droop resolved. Right facial nu mbness remains. Orders to follow up on: none Last pain assessment/reassessment: 0630am denies pain. Psych/social issues: Pleasant, cooperative. Spouse at bedside. Last patient visit (i.e. Falls/Activity/Comfort/Environment/Toileting/Skin): 0630am adlib Anticipated or pending procedures: Probable DC to local SNF ([facility], not [place]).Electronic ally signed by Evelyn Barker at 09/05/2010 6:43 AM PDTED Teaching Notes - Tiffanie Lopez MD - 09/04/2010 10:26 PM PDT I saw and evaluated the patient and discussed the diagnosis and management of the patient w ith the Resident. I performed and confirmed the loera portions of the service. See also the Re servando's note from today's visit. I agree with the documentation findings and plan of care. NOTE: I have reviewed the medications, allergies, past medical history, social history, and famil y history. Nursing notes and EMS report reviewed. ED Triage Vitals BP Temp Pulse Resp SpO2 09/02/10 1903 09/02/10 1903 09/02/10 1903 09/02/10 1903 09/02/10 1903 159/88 mmHg 37.1 C 65 15 95 % Txfer [facility] after 24h admission to Stroke Team at [facility] by POV s/p brainstem CVA per MRI. Arrived w/ slurred speech, mild gait ataxia (to R) but w/ nl strength/sensory exam of extrems x4. No obvious facial weakness. Mentating normally. In-ED Neuro resident evaluation at Stroke Team prior request. CTA brain/neck obtained and reviewed by neuro. A rranged admission to Neuro ICU. Pt txfered there in stable condition. Critical Care Time: 0.75 hr (45m) Critical care time was spent at patients bedside, reassessing patient, reviewing labs, revi quintan[place] old records, discussing care with consultants, discussing care with family, interpreti ng laboratory and imaging findings, and in direct management of patient's care. EHK andoff - Jory Cloud - 09/04/2010 5:53 PM PDTNursing Handoff Report Primary focus of stay: Basilar artery stroke Pertinent physical findings: Ataxic gait. Rt facial droop and numbness resolving. Orders to follow up on: none Last pain assessment/reassessment: 1700 denies Psych/social issues: Pleasant, cooperative. Last patient visit (i.e. Falls/Activity/Comfort/Environment/Toileting/Skin): 1800 sleeping Anticipated or pending procedures: Probable DC to local SNF ([facility]).Electronic ally signed by Jory Clodu at 09/04/2010 5:56 PM PDTEvaluation - Jory Cloud - 09/04/2010 5:53 PM PDTProblem: General Plan of Care (Adult) Goal: Individualization/Patient-Specific Goal Goals:Patient will not fall. Interventions:Remind patient to use call light prior to getting out of bed. Interventions that worked/didn't work:Patient has not been out of bed since arrival. My recommendations forward:Cont with above intervention. Patient Stability:Moderately Stable lan of Jory Mejia - 09/04/2010 5:42 PM PDTProblem: General Plan of Care (Adult) Goal: Individualization/Patient-Specific Goal Goals:Patient will not fall. Interventions:Remind patient to use call light prior to getting out of bed. lan of Annie Parks RN - 09/04/2010 2:44 PM PDTProblem: Case Management Goals Goal: Discharge Needs Met Met with patient and family at bedside to discuss discharge plan. They will meet with [facility] t o apply for [facility] and are interested in finding out if patient qualifies for [facility]. They are aware of the resources available in [place] (which are limited) and feel that the y would be better off in [facility] if IPR is indicated, approved. Provided Denilson from [facility] with facesheet, made referral to [facility]. Case management will continue to follow. Annie Benitez RN, BSN Poultry Farm Worker [phone] andoff - Mandy Gamez RN - 09/04/2010 2:31 PM PDTNursing Handoff Report Primary focus of stay: Basilar artery stroke Pertinent physical findings: ataxic gait, rt facial droop resolving Orders to follow up on: none Last pain assessment/reassessment: 1410 Psych/social issues: none Last patient visit (i.e. 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 no significant past medical history who was transferred from [facility] with 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 Status Update: none Relevant Precautions: Fall risk Subjective: Lives with mother and girlfriend. Mother not able to provide physical assistanc e, girlfriend works. Pain: Denies. Objective: Seen for transfer training for pivot transfers to chair, gait training with FWW times 50 feet in hallway, without FWW 5 feet in room, balance tasks including sidesteps, tur ns, reaching, backward steps with FWW. Left sitting in chair with call light in reach, RN aw are. Assessment: Mr. Sylvester requires minimal physical assistance and the use of a FWW during amb ulation due to right sided ataxia that creates gait deviations (dysmetria with step and init ial contact, decreased weight acceptance, poor limb advancement) and balance deficits that p ut him at risk for falls. He required minimal assistance for recovery of loss of balance wit h ambulation with the FWW to prevent falls. He is unable to ambulate without a FWW or other UE support. He is independent in pivot transfers from the bed to a standard chair and back t o bed. Does not appear that he has 24 hour minimal physical assistance at home and he is abl e to tolerate therapy services sufficient for consideration of inpatient rehabilitation [facility]. This patient has good rehabilitation potential to achieve stated goals (see Care Plan for g oals) and requires continued rehabilitation services, given the patient's treatment is at a level of complexity or sophistication requiring the skills of a therapist, specifically to i mprove balance for transfers and gait and return to independence with these tasks. See care plan for goals. Updated Plan & Recommendations: 24 hour minimal physical assistance, FWW, continued PT serv ices at discharge. Activity: Out of bed to chair with nursing supervision, minimal physical assistance for amb ulation with FWW and gait belt. Karla Mendoza, PT pager #[phone] lan of Care - Chester Espinoza [facility] - 09/04/2010 9:31 AM PDTSpeech Language Pathology Treatment Review of pt's hospitalization since last visit: Continues on 7NS, diet advanced to Regula r. S: "I inhaled it." Patient reports he ate quickly this morning. O: Pt was seen for the following skilled therapy today: dysphagia tx. Pt participation was excellent. Pt was positioned seated fully upright in bed. Pain was not evident and not reported by patient. Respiratory status was stable on RA, edentulous (dentures "in the car " however patient reports he prefers to eat without them). No difficulty with PO at meals, meds or liquids reported by patient gis instructor. Patient assessed with self-administered sips of thin liquids via straw and side of cup x8oz, soft and hard solids x10 bites (pancakes and fr esh fruit). Oral phase c/b adequate labial seal and oral containment, timely bolus manipula tion, thorough "mastication", preference for bolus to slip to R however adequate oral cleara nce achieved. Pharyngeal phase c/b timely swallow initiation, hyolaryngeal excursion comple te to palpation. No cough, throat clear or audible pharyngeal pooling, respiratory status s table following PO trials. Informal screening of speech/language/cognition revealed no dysa rthria with speech 100% intelligible, expressive and receptive language grossly intact, no c oncern for cognitive deficits noted. No formal speech/language/cognitive assessment complet ed at this time. Education: Focus this session to patient includes aspiration precautions. Education Outcome : Patient able to verbalize understanding of information provided. A: Patient presents with grossly functional oropharyngeal swallow ability, tolerating PO w ithout over clinical s/sx aspiration. Patient with speech/language/cognitive abilities appa rently WNL, no formal assessment is currently indicated. P: Recommendations: Continue REGULAR diet with THIN liquids as tolerated. -upright 90 degrees for all PO -small bites/sips -1:1 supervision -d/c PO for ss aspiration (increased cough, decreased resp status, increased temp) No further acute [facility] tx is currently indicated, will sign off for now. Please reorder with further concerns. Chester Berrios/[facility] Speech-Language Pathologist Pager: [phone] lan of Care - W Ermelinda wyatt RN - 09/04/2010 8:56 AM PDTProblem: Stroke (Ischemic)/Transient Ischemic At tack (TIA) (Adult) Goal: Prevent/Manage Potential Problems Goals:Pt will maintain skin integrity Pt have all fall prevention interventions in place Pt pain will be managed to keep < 3 Pt will mobilize to the maximum capability Pt will use I/S Pt will maximize there independence in ADL participation Pt will have all measures in place to promote decreased ICP Interventions:provide pt with I/S Incorporate recommendations from PT/OT Provide all interventions per fall soc valuation - Gary Porras - 09/04/2010 12:26 AM PDTProblem: Stroke (Ischemic)/Transient Ischemic Attack (TIA) (Adult) Goal: Prevent/Manage Potential Problems Goals: Promote rest. Interventions: Cluster care. Interventions that worked/didn't work:Clustering care seemed to help. Pt. Able to get some sleep. My recommendations forward:Continue current POC. Patient Stability:Moderately Stable andoff - Gary Gallardo - 09/04/2010 12:26 AM PDTNursing Handoff Report Primary focus of stay: Stroke Pertinent physical findings: LE Ataxia Orders to follow up on: None Last pain assessment/reassessment: Denies Psych/social issues: NA Last patient visit (i.e. Falls/Activity/Comfort/Environment/Toileting/Skin): NA Anticipated or pending procedures: Tx? lan Chely Pierce ett - 09/03/2010 10:26 PM PDTProblem: Stroke (Ischemic)/Transient Ischemic Attack (TIA) (Joseph lt) Goal: Prevent/Manage Potential Problems Goals: Promote rest. Interventions: Cluster care. lan Ermelinda Méndez RN - 09/03/2010 3:38 PM PDTProblem: Stroke (Ischemic)/Transient Ischemic Attack (TI A) (Adult) Goal: Prevent/Manage Potential Problems Goals: Pt will maintain skin integrity Pt have all fall prevention interventions in place Pt pain will be managed to keep < 3 Pt will mobilize to the maximum capability Pt will maximize there independence in ADL participation Interventions: Pt ind with bed mobility, fall preventions in place-bed alarm on, no c/o pain, pt assessed by PT/OT not able to mobilize today, PT very ind with adls lan of Annie Parks RN - 09/03/2010 1:42 PM PDTProblem: Case Management Goals Goal: Discharge Needs Met Critical Care Initial Case Management Assessment Responsible Democrat for Health Care Decisions: patient Emergency Contact:Yahaira (? 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 Annie Benitez RN, Poultry Farm Worker Pager #[phone] can - Heather Ashley - 09/03/2010 12:33 PM PDT lan of Chester Gillis, [facility] - 09/03/2010 10:09 AM PDTSpeech Language Pathology - DYSPHAGIA Evaluation Medical Course: 55 y.o. male with no significant past medical history who was transferred from [facility] with concern for basilar artery thrombosis and brainstem stroke. On set 09/01/10 about 1730 with acute onset of dizziness, gait imbalance where he was constantly falling to the right and dysarthria. MRA showed basilar stenosis, transferred to [facility] ED f or further evaluation. Previous Medical History: No past medical history on file. Orders received for swallow evaluation due to concern for swallow safety. PLOF: no history of dysphagia per patient report or chart review Pt's participation during today's bedside swallow evaluation was good. Pt was positioned s eated fully upright in bed. Pain was not evident and not reported by patient. Respiratory status: Stable on RA, Sp02 97% Oral Mechanism Examination: Mild R labial and lingual weakness, ROM grossly adequate, adeq uate rate of execution of oral motor tasks. Patient edentulous (dentures "in the car"), eat s without dentures occasionally at baseline. Presentations: Assessed with ice chips and clear liquids only (not yet cleared for PO donell ds per RN report). Oral Phase: Adequate labial seal and oral containment, timely bolus manipulation, +mastica tion of ice chip, adequate oral clearance achieved. Pharyngeal Phase: Timely swallow initiation, hyolaryngeal excursion complete on palpation. No cough, throat clear or audible pharyngeal pooling, vocal quality clear following PO tri als. Respiratory rate/effort and Sp02 remained stable. Education: Focus this session to patient and significant other includes aspiration precauti ons. Education Outcome: Patient able to verbalize understanding of information provided. The patient has good rehabilitation potential to achieve stated goals (see Care Plan for go als) and requires continued rehabilitation services, given the patient's treatment is at a l evel of complexity or sophistication requiring the skills of a therapist, specifically amarilis cordova. Impressions: Patient presents with minimal R orofacial weakness though no significant dysa rthria or oropharyngeal dysphagia, tolerated PO trials without overt clinical signs or sympt oms of aspiration. Recommendations: ADAT to Regular/Thin as appropriate -upright 90 degrees for all PO -small bites/sips -1:1 supervision -d/c PO for ss aspiration (increased cough, decreased resp status, increased temp) Plan: Will f/u x1 to verify tolerance, reinforce aspiration precautions, and screen speech /language/cognition for further assessment/intervention as indicated. Chester Gerber MEd/[facility] Speech Language Pathologist Pager #[phone] lan of Care - D Andre villasenor, PT - 09/03/2010 9:07 AM PDTPhysical Therapy Evaluation 09/03/2010 9:07 AM Pt seen on 7 NSICU. This is hospital day 1 . Brief Hospital Course: Miles Sylvester was admitted on 09/02/2010, basilar artery stenosis, at axia Relevant Precautions: Falls No past medical history on file. No past surgical history on file. Subjective: Pt agreeable to work with PT. Living Environment: Pt lives with his in [place] in a single level home with a few s teps to enter. Prior Level of Function: Pt was independent with mobility and ambulation Patient / Family Goal: Get better Communication: Greenlandic Barriers: None Pain: No pain or pain behaviors. Vital signs: VSS . Cognitive Screen Level of alertness: Awake Orientation: Person, place, situation Quality of responses: Appropriate Command following: Appropriate Judgment / safety awareness: good Physical Assessment ROM: Bilateral lower extremities AROM within normal limits hip/knee/ankle Strength: Bilateral lower extremities within normal limits Edema: none noted Skin Integrity: intact Neurological Function Sensation: Bilateral lower extremities intact to light touch Muscle Tone: Bilateral lower extremities within normal limits Proprioception: Bilateral lower extremities intact Gross Motor: Impaired Fine Motor: Not assessed Balance: Sitting static: contact guard assist Sitting dynamic: contact guard assist with 1 loss of balance to right while donning right sock. Standing static: minimal assist, slight lean to right with eyes open pt able to correct wi th verbal cues, eyes closed loss of balance to the right and minimal assist to correct. Standing dynamic: minimal assist Mobility & Transfers: Supine to sit: contact guard assist with elevated head of bed Sit to stand: minimal assist Stand pivot transfer: Not assessed Supine scoot to head of bed: Not assessed Seated scoot at edge of bed: contact guard assist Gait: Pt [id number] x 10 sec with minimal assist, full upright posture, leaning to left with decreased coordination for stepping right > left. Treatment provided this date: Pt ed with role of PT Ended session: Pt supine in bed with nursing updated. ASSESSMENT: Pt admitted with basilar artery stenosis, presents with balance impairment and ataxia, will benefit from skilled PT to address these deficits and improve safety and indepe ndence with gait. See Care Plan for goals. Recommendations: Discharge to family assist, may need assistive device. Activity Plan: Cardiac chair/2 person assist to bedside chair. PLAN: Balance/gait Frequency: 5x/wk Duration: 1 week The above plan of care and goals were developed and reviewed with the patient. ANDRE GOEL, PT lan of Care - Sage Olmos - 09/03/2010 9:03 AM PDTOccupational Therapy Evaluation 09/03/2010 9:03 AM Pt admitted on 09/02/2010 Brief Hospital Course: transferred from [facility] with concern for basilar artery thrombosis and brainstem stroke, CTA showed stenosis but patent basilar artery and the rest of his cerebrovasculature was patent as well. Relevant Precautions: Fall Risk No past medical history on file. No past surgical history on file. 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 Cognitive Screen Level of alertness: alert Orientation: Ox4 Quality of responses: appropriate Command following: WNL Memory: intact Judgement / safety awareness: good Attention / Concentration: good Barriers to Learning: none Affect: normal Visual Perception: Glasses, no deficits noted UE Physical Assessment Dominant Hand: R ROM: WFL B Strength: WFL B Edema: None noted Skin Integrity: Intact as seen UE Neurological Function Sensation: intact Muscle Tone: normal Proprioception: intact Gross Motor: WNl Fine Motor: WNL Activities of Daily Living: UB Dressing: Indep adjusting gown UB Grooming: Indep w/ set-up LB Dressing: Able to reach feet for socks, but fell over sideways at EOB doing so Toileting: NT Ambulation with ADL: Not attempted Transfers: Indep supine to sit EOB, Fair sit balance, tends to fall R, Min assist up on fe et d/t unsteadiness, no transfer done Treatment provided this date: None specific Ended session: Pt in bed, family and MDs present ASSESSMENT: At eval, pt A+O x 4, WFL B UE function, vision intact, generally Indep most AD Ls, but impaired sitting and standing balance create safety issues w/ LB ADLs and decreased safety and Indep most ADL mobility, f/u OT tx appropriate to help pt have safe d/c See care plan for goals. Recommendations: Pt needs close assist for up on feet to prevent fall, could go home if wi fe able to provide that PLAN: ADLs, ADL mobility, family training, d/c needs Frequency: 2 f/u visits Duration: 1 wk The above plan of care and goals were developed and reviewed with the patient. Good rehab potential for stated goals and requires continued rehabilitation services, given the patie nt's treatment is at a level of complexity or sophistication requiring the skills of a thera pist. Sage Clemente valuation - Gary Gallardo - 09/03/2010 4:28 AM PDTProblem: Stroke (Ischemic)/Transient Ischemic Attack (TIA) (A dult) Goal: Prevent/Manage Potential Problems Goals: Decrease GI upset. Interventions: Utilize antiemetics PRN. Interventions that worked/didn't work:Pt. Without emesis or nausea this am. My recommendations forward:Continue current POC Patient Stability:Moderately Stable andoff Gary Avery - 09/03/2010 4:27 AM PDTNursing Handoff Report Primary focus of stay: Ischemic Stroke Pertinent physical findings: Lower limb ataxia Orders to follow up on: None Last pain assessment/reassessment: Denies. Psych/social issues: None Last patient visit (i.e. Falls/Activity/Comfort/Environment/Toileting/Skin): NA, urinal at bedside. Anticipated or pending procedures: Possible stent or angio today. lan of Care Chely Avery ett - 09/03/2010 1:15 AM PDTProblem: Stroke (Ischemic)/Transient Ischemic Attack (TIA) (Joseph lt) Goal: Prevent/Manage Potential Problems Goals: Decrease GI upset. Interventions: Utilize antiemetics PRN. aul [facility] Jimena Jovel - 09/02/2010 2:[address] Merida with Dr. Alan. Patient is still at r eferring, can walk but is very ataxic, MRI shows tight mid basilar artery, Dr. Merida would l holly patient to come directly to the ED, will probably take to angio. [facility]. 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 Referring will send P OV with . hree [facility] Jimena Jovel - 09/02/2010 2:15 [address] Alan calling for further consult, page d stroke team. gm Asad Lipscomb - 09/01/2010 8:31 PM PDT8:16 PM 09/01/[address] Salcido with Dr Merida (Attnd Stroke) No transfer required. Around 1730 pt got off work, pt reports sudden onset of severe pain behind right eye, worst VENTURA he's ever had. Pt's and mother report pt's right eyelid drooping, speech slurred, unstable walk - veering to the right. Around 1800 pt presented at [facility]. Most of the arron ro deficits had disappeared. Pt reports that about 50% of the VENTURA continues. CT scan shows n o head bleed, mass, or midline shift. Chem panels WNL. Given 325 ASA. Pt is now scoring ze ro on NIH scale. No c/o stiff neck or meningeal signs. Per Dr Merida, symptoms are probable migraine variants. [facility] unable to do MRA or CTA until tomorrow. Pt probably does not n eed an urgent evaluation tonight, will need to r/o aneurysm but this can wait until tomorrow morning. PMHx: smoker, no HTN, or cardiology hx, no hx of E'Ana abuse. documented in this en counter Plan of Treatment + +------+--------+ + + | Name | Type | Priori | Associated Diagnoses | Order Schedule | | | | ty | | | + +------+--------+ + + | TRANSTHORACIC | ECG | Routin | | One Time for 1 | | ECHOCARDIOGRAM, | | e | | Occurrences starting | | ADULT | | | | 09/03/2010 until | | | | | | 09/03/2010 | + +------+--------+ + + documented as of this encounter Procedures + +--------+ + + + | Procedure Name | Priori | Date/Time | Associated Diagnosis | Comments | | | ty | | | | + +--------+ + + + | RADIOLOGY | | 09/05/2010 | | Results for this | | | | 12:30 PM | | procedure are in the | | | | PDT | | results section. | + +--------+ + + + | RENAL FUNCTION SET | Urgent | 09/05/2010 | | Results for this | | (NA,K,CL,CO2,BUN,CRE | | 7:05 AM | | procedure are in the | | AT,GLUC,CA,PHOS,ALB | | PDT | | results section. | | ) | | | | | + +--------+ + + + | CBC ONLY | Urgent | 09/05/2010 | | Results for this | | | | 7:05 AM | | procedure are in the | | | | PDT | | results section. | + +--------+ + + + | MAGNESIUM, PLASMA | Urgent | 09/05/2010 | | Results for this | | | | 7:05 AM | | procedure are in the | | | | PDT | | results section. | + +--------+ + + + | RENAL FUNCTION SET | Urgent | 09/04/2010 | | Results for this | | (NA,K,CL,CO2,BUN,CRE | | 1:30 AM | | procedure are in the | | AT,GLUC,CA,PHOS,ALB | | PDT | | results section. | | ) | | | | | + +--------+ + + + | CBC ONLY | Urgent | 09/04/2010 | | Results for this | | | | 1:30 AM | | procedure are in the | | | | PDT | | results section. | + +--------+ + + + | MAGNESIUM, PLASMA | Urgent | 09/04/2010 | | Results for this | | | | 1:30 AM | | procedure are in the | | | | PDT | | results section. | + +--------+ + + + | CAPILLARY BLOOD | Routin | 09/03/2010 | | Results for this | | GLUCOSE (NO CHG), | e | 5:27 PM | | procedure are in the | | POC | | PDT | | results section. | + +--------+ + + + | PERSONNEL COUNSELOR CEREBRAL | Routin | 09/03/2010 | | Results for this | | | e | 1:57 PM | | procedure are in the | | | | PDT | | results section. | + +--------+ + + + | ACT, POC RESULT | Routin | 09/03/2010 | | Results for this | | | e | 1:18 PM | | procedure are in the | | | | PDT | | results section. | + +--------+ + + + | VASC LAB VENOUS | Routin | 09/03/2010 | | Results for this | | DUPLEX LOWER | e | 9:10 AM | | procedure are in the | | EXTREMITY BILAT COMP | | PDT | | results section. | + +--------+ + + + | CAPILLARY BLOOD | Routin | 09/03/2010 | | Results for this | | GLUCOSE (NO CHG), | e | 8:40 AM | | procedure are in the | | POC | | PDT | | results section. | + +--------+ + + + | CAPILLARY BLOOD | Routin | 09/03/2010 | | Results for this | | GLUCOSE (NO CHG), | e | 6:02 AM | | procedure are in the | | POC | | PDT | | results section. | + +--------+ + + + | COAGULOPATHY PANEL | Urgent | 09/03/2010 | | Results for this | | (INR,APTT,FIBRINOGEN | | 2:02 AM | | procedure are in the | | ) | | PDT | | results section. | + +--------+ + + + | MAGNESIUM, PLASMA | Urgent | 09/03/2010 | | Results for this | | | | 2:02 AM | | procedure are in the | | | | PDT | | results section. | + +--------+ + + + | RENAL FUNCTION SET | Urgent | 09/03/2010 | | Results for this | | (NA,K,CL,CO2,BUN,CRE | | 1:11 AM | | procedure are in the | | AT,GLUC,CA,PHOS,ALB | | PDT | | results section. | | ) | | | | | + +--------+ + + + | ANESTHESIA/SEDATION | | 09/03/2010 | | Results for this | | | | 12:00 AM | | procedure are in the | | | | PDT | | results section. | + +--------+ + + + | ANESTHESIA/SEDATION | | 09/03/2010 | | Results for this | | | | 12:00 AM | | procedure are in the | | | | PDT | | results section. | + +--------+ + + + | TRANSTHORACIC | | 09/03/2010 | | Results for this | | ECHOCARDIOGRAM, | | 12:00 AM | | procedure are in the | | ADULT | | PDT | | results section. | + +--------+ + + + | 12 LEAD ECG | Urgent | 09/02/2010 | | Results for this | | | | 10:51 PM | | procedure are in the | | | | PDT | | results section. | + +--------+ + + + | COMPLETE METABOLIC | Urgent | 09/02/2010 | | Results for this | | SET | | 10:36 PM | | procedure are in the | | (NA,K,CL,CO2,BUN,CRE | | PDT | | results section. | | AT,GLUC,CA,AST,ALT,B | | | | | | YOLANDA TOTAL,ALK | | | | | | PHOS,ALB,PROT TOTAL) | | | | | + +--------+ + + + | CBC ONLY | Urgent | 09/02/2010 | | Results for this | | | | 10:36 PM | | procedure are in the | | | | PDT | | results section. | + +--------+ + + + | LIPID SET (TRIG, T | Urgent | 09/02/2010 | | Results for this | | CHOL, HDL, CALC LDL) | | 10:36 PM | | procedure are in the | | | | PDT | | results section. | + +--------+ + + + | HEMOGLOBIN A1C, | Urgent | 09/02/2010 | | Results for this | | BLOOD | | 10:36 PM | | procedure are in the | | | | PDT | | results section. | + +--------+ + + + | MAGNESIUM, PLASMA | Urgent | 09/02/2010 | | Results for this | | | | 10:36 PM | | procedure are in the | | | | PDT | | results section. | + +--------+ + + + | CTA NECK W CONTRAST | Routin | 09/02/2010 | | Results for this | | | e | 8:51 PM | | procedure are in the | | | | PDT | | results section. | + +--------+ + + + | CTA HEAD W CONTRAST | Urgent | 09/02/2010 | | Results for this | | | | 8:51 PM | | procedure are in the | | | | PDT | | results section. | + +--------+ + + + | CHEM 8 W/H&H,POC | Urgent | 09/02/2010 | | Results for this | | | | 7:35 PM | | procedure are in the | | | | PDT | | results section. | + +--------+ + + + documented in this encounter Results RADIOLOGY (09/05/2010 12:30 PM PDT) + + + | Narrative | Performed At | + + + | | | + + + + + | Procedure Note | + + | Geneva Ashley - 09/11/2010 7:34 AM PDT | | | + + MAGNESIUM, PLASMA (09/05/2010 7:05 AM PDT) + +-------+ + + + | Component | Value | Ref Range | Performed | Pathologist | | | | | At | Signature | + +-------+ + + + | MAGNESIUM,P | 2.3 | 1.8 - 2.5 mg/dL | [facility] | | | LASMA | | | DEPARTMENT | | | [...] | + + + + + | [facility] | [address] | [place] [address] | | | PATHOLOGY | [address] | | | + + + + + RENAL FUNCTION SET (NA,K,CL,CO2,BUN,CREAT,GLUC,CA,PHOS,ALB ) (09/05/2010 7:05 AM PDT) + + + + + + | Component | Value | Ref Range | Performed | Pathologist | | | | | At | Signature | + + + + + + | GLUCOSE, | 132 (H) | 60 - 99 mg/dL | [facility] | | | PLASMA | | | DEPARTMENT | | | (LAB) | | | OF | | | | | | PATHOLOGY | | + + + + + + | BUN, PLASMA | 15 | 6 - 20 mg/dL | [facility] | | | (LAB) | | | DEPARTMENT | | | | | | OF | | | | | | PATHOLOGY | | + + + + + + | CREATININE | 1.13 | 0.70 - 1.30 | [facility] | | | PLASMA | | mg/dL | DEPARTMENT | | | (LAB) | | | OF | | | | | | PATHOLOGY | | + + + + + + | ALBUMIN, | 3.9 | 3.5 - 4.7 g/dL | [facility] | | | PLASMA | | | DEPARTMENT | | | (LAB) | | | OF | | | | | | PATHOLOGY | | + + + + + + | CALCIUM, | 9.2 | 8.6 - 10.2 | [facility] | | | PLASMA | | mg/dL | DEPARTMENT | | | (LAB) | | | OF | | | | | | PATHOLOGY | | + + + + + + | PHOSPHORUS, | 4.4 | 2.4 - 4.7 mg/dL | [facility] | | | PLASMA | | | DEPARTMENT | | | (LAB) | | | OF | | | | | | PATHOLOGY | | + + + + + + | SODIUM, | 138 | 134 - 143 | [facility] | | | PLASMA | | mmol/L | DEPARTMENT | | | (LAB) | | | OF | | | | | | PATHOLOGY | | + + + + + + | POTASSIUM, | 3.7 | 3.4 - 5.0 | [facility] | | | PLASMA | | mmol/L | DEPARTMENT | | | (LAB) | | | OF | | | | | | PATHOLOGY | | + + + + + + | CHLORIDE, | 105 | 97 - 108 mmol/L | [facility] | | | PLASMA | | | DEPARTMENT | | | (LAB) | | | OF | | | | | | PATHOLOGY | | + + + + + + | TOTAL CO2, | 25Comment: New Total | 22 - 29 mmol/L | [facility] | | | PLASMA | CO2 reference range | | DEPARTMENT | | | (LAB) | effective 04/15/10. | | OF | | | | | | PATHOLOGY | | + + + + + + | ANION GAP | 8 | 4 - 11 mmol/L | [facility] | | | | | | DEPARTMENT | | | | | | OF | | | | | | PATHOLOGY | | + + + + + + | ANION | 8 | 4 - 11 mmol/L | [facility] | | | GAP(ALB | | | DEPARTMENT | | | CORRECTED) | | | OF | | | | | | PATHOLOGY | | + + + + + + + + | Specimen | + + | Blood - Blood | + + + + + + + | Performing | Address | City/State/Zipcode | Phone Number | | Organization | | | | + + + + + | [facility] DEPARTMENT OF | [address] | [place] [address] | | | PATHOLOGY | [address] | | | + + + + + CBC ONLY (09/05/2010 7:05 AM PDT) + +-------+ + + + | Component | Value | Ref Range | Performed | Pathologist | | | | | At | Signature | + +-------+ + + + | WHITE CELL | 10.4 | 4.4 - 11.0 K/cu | [facility] | | | COUNT | | mm | DEPARTMENT | | | | | | OF | | | | | | PATHOLOGY | | + +-------+ + + + | RED CELL | 5.11 | 4.50 - 5.90 | [facility] | | | COUNT | | M/cu mm | DEPARTMENT | | | | | | OF | | | | | | PATHOLOGY | | + +-------+ + + + | HEMOGLOBIN | 16.2 | 13.5 - 17.5 | [facility] | | | | | g/dL | DEPARTMENT | | | | | | OF | | | | | | PATHOLOGY | | + +-------+ + + + | HEMATOCRIT | 47.7 | 41.0 - 53.0 % | [facility] | | | | | | DEPARTMENT | | | | | | OF | | | | | | PATHOLOGY | | + +-------+ + + + | MCV | 93.3 | 80.0 - 96.0 fL | [facility] | | | | | | DEPARTMENT | | | | | | OF | | | | | | PATHOLOGY | | + +-------+ + + + | MCHC | 33.9 | 33.4 - 35.5 | [facility] | | | | | g/dL | DEPARTMENT | | | | | | OF | | | | | | PATHOLOGY | | + +-------+ + + + | RDW | 13.0 | 11.5 - 15.0 % | [facility] | | | | | | DEPARTMENT | | | | | | OF | | | | | | PATHOLOGY | | + +-------+ + + + | PLATELET | 327 | 150 - 400 K/cu | [facility] | | | COUNT | | mm | DEPARTMENT | | | | | [...] DEPARTMENT OF | [address] | [place] [address] | | | PATHOLOGY | [address] | | | + + + + + MAGNESIUM, PLASMA (09/04/2010 1:30 AM PDT) + +-------+ + + + | Component | Value | Ref Range | Performed | Pathologist | | | | | At | Signature | + +-------+ + + + | MAGNESIUM,P | 2.2 | 1.8 - 2.5 mg/dL | [facility] | | | LASMA | | | DEPARTMENT | | | [...] | + + + + + | [facility] DEPARTMENT OF | [address] | [place] [address] | | | PATHOLOGY | [address] | | | + + + + + RENAL FUNCTION SET (NA,K,CL,CO2,BUN,CREAT,GLUC,CA,PHOS,ALB ) (09/04/2010 1:30 AM PDT) + + + + + + | Component | Value | Ref Range | Performed | Pathologist | | | | | At | Signature | + + + + + + | GLUCOSE, | 105 (H) | 60 - 99 mg/dL | [facility] | | | PLASMA | | | DEPARTMENT | | | (LAB) | | | OF | | | | | | PATHOLOGY | | + + + + + + | BUN, PLASMA | 11 | 6 - 20 mg/dL | [facility] | | | (LAB) | | | DEPARTMENT | | | | | | OF | | | | | | PATHOLOGY | | + + + + + + | CREATININE | 1.10 | 0.70 - 1.30 | [facility] | | | PLASMA | | mg/dL | DEPARTMENT | | | (LAB) | | | OF | | | | | | PATHOLOGY | | + + + + + + | ALBUMIN, | 3.7 | 3.5 - 4.7 g/dL | [facility] | | | PLASMA | | | DEPARTMENT | | | (LAB) | | | OF | | | | | | PATHOLOGY | | + + + + + + | CALCIUM, | 8.8 | 8.6 - 10.2 | [facility] | | | PLASMA | | mg/dL | DEPARTMENT | | | (LAB) | | | OF | | | | | | PATHOLOGY | | + + + + + + | PHOSPHORUS, | 4.0 | 2.4 - 4.7 mg/dL | [facility] | | | PLASMA | | | DEPARTMENT | | | (LAB) | | | OF | | | | | | PATHOLOGY | | + + + + + + | SODIUM, | 136 | 134 - 143 | [facility] | | | PLASMA | | mmol/L | DEPARTMENT | | | (LAB) | | | OF | | | | | | PATHOLOGY | | + + + + + + | POTASSIUM, | 3.7 | 3.4 - 5.0 | [facility] | | | PLASMA | | mmol/L | DEPARTMENT | | | (LAB) | | | OF | | | | | | PATHOLOGY | | + + + + + + | CHLORIDE, | 103 | 97 - 108 mmol/L | [facility] | | | PLASMA | | | DEPARTMENT | | | (LAB) | | | OF | | | | | | PATHOLOGY | | + + + + + + | TOTAL CO2, | 27Comment: New Total | 22 - 29 mmol/L | [facility] | | | PLASMA | CO2 reference range | | DEPARTMENT | | | (LAB) | effective 04/15/10. | | OF | | | | | | PATHOLOGY | | + + + + + + | ANION GAP | 6 | 4 - 11 mmol/L | [facility] | | | | | | DEPARTMENT | | | | | | OF | | | | | | PATHOLOGY | | + + + + + + | ANION | 6 | 4 - 11 mmol/L | [facility] | | | GAP(ALB | | | DEPARTMENT | | | CORRECTED) | | | OF | | | | | | PATHOLOGY | | + + + + + + + + | Specimen | + + | Blood - Blood | + + + + + + + | Performing | Address | City/State/Zipcode | Phone Number | | Organization | | | | + + + + + | [facility] | [address] | [place] [address] | | | PATHOLOGY | [address] | | | + + + + + CBC ONLY (09/04/2010 1:30 AM PDT) + + + + + + | Component | Value | Ref Range | Performed | Pathologist | | | | | At | Signature | + + + + + + | WHITE CELL | 11.1 (H) | 4.4 - 11.0 K/cu | [facility] | | | COUNT | | mm | DEPARTMENT | | | | | | OF | | | | | | PATHOLOGY | | + + + + + + | RED CELL | 4.98 | 4.50 - 5.90 | [facility] | | | COUNT | | M/cu mm | DEPARTMENT | | | | | | OF | | | | | | PATHOLOGY | | + + + + + + | HEMOGLOBIN | 15.6 | 13.5 - 17.5 | [facility] | | | | | g/dL | DEPARTMENT | | | | | | OF | | | | | | PATHOLOGY | | + + + + + + | HEMATOCRIT | 46.3 | 41.0 - 53.0 % | [facility] | | | | | | DEPARTMENT | | | | | | OF | | | | | | PATHOLOGY | | + + + + + + | MCV | 92.9 | 80.0 - 96.0 fL | [facility] | | | | | | DEPARTMENT | | | | | | OF | | | | | | PATHOLOGY | | + + + + + + | MCHC | 33.7 | 33.4 - 35.5 | [facility] | | | | | g/dL | DEPARTMENT | | | | | | OF | | | | | | PATHOLOGY | | + + + + + + | RDW | 13.0 | 11.5 - 15.0 % | [facility] | | | | | | DEPARTMENT | | | | | | OF | | | | | | PATHOLOGY | | + + + + + + | PLATELET | 303 | 150 - 400 K/cu | [facility] | | | COUNT | | mm | DEPARTMENT | | | | | [...] | + + + + + | [facility] | [address] | [place] [address] | | | PATHOLOGY | [address] | | | + + + + + CAPILLARY BLOOD GLUCOSE, POC (09/03/2010 5:27 PM PDT) + +---------+ + + + | Component | Value | Ref Range | Performed | Pathologist | | | | | At | Signature | + +---------+ + + + | BLOOD | 126 (H) | 60 - 99 mg/dL | [facility] - | | | GLUCOSE, | | | [facility] | | | POC | | | [facility] | | | | | | OF CARE | | | | | | TESTS | | + +---------+ + + + + + | Specimen | + + | | + + + + + + + | Performing | Address | City/State/Zipcode | Phone Number | | Organization | | | | + + + + + | [facility] | [address] | [place], [place] | | | [facility] | [address] | [address] | | | TESTS | | | | + + + + + PERSONNEL COUNSELOR CEREBRAL (09/03/2010 1:57 PM PDT) + + + + + + | Component | Value | Ref Range | Performed | Pathologist | | | | | At | Signature | + + + + + + | PERSONNEL COUNSELOR | DATE OF PROCEDURE: | | | | | CEEREBRAL | September 03, 2010 | | | | | | DIAGNOSIS: Stroke | | | | | | OPERATION: Diagnostic | | | | | | cerebral angiogram | | | | | | PRIMARY SURGEON: Marisela | | | | | | MD Prashanth WOOD CRAFTSMAN | | | | | | SURGEONS: Jasmine Stone, | | | | | | ANESTHESIA: general | | | | | | anesthesia DURATION OF | | | | | | PROCEDURE: 40 minutes | | | | | | COMPLICATIONS: None | | | | | | MATERIALS EMPLOYED: 19g | | | | | | needle; 035 patricio wire; | | | | | | 035 glidewire; 5FDavis | | | | | | catheter; VESSELS | | | | | | INJECTED: R CCA; L CCA; | | | | | | L vertebral artery; R | | | | | | vertebral artery VESSELS | | | | | | STUDIED: R CCA, | | | | | | cervical views; R ICA, | | | | | | intracranial views; | | | | | | LCCA, cervical views; L | | | | | | ICA, intracranial views; | | | | | | L vertebral | | | | | | artery,intracranial | | | | | | views CONSENT:The | | | | | | procedure was explained | | | | | | fully to the patient or | | | | | | the patient'ssurrogate, | | | | | | including the risks of | | | | | | stroke, vascular injury | | | | | | at accesssite in leg, | | | | | | renal failure from | | | | | | contrast, serious | | | | | | allergic reactionsfrom | | | | | | medications or contrast, | | | | | | incomplete study, | | | | | | benefits, | | | | | | andalternatives fully to | | | | | | the patient . All | | | | | | questions were answered | | | | | | indetail and the patient | | | | | | directed me to proceed. | | | | | | INDICATIONS: 55 yo with | | | | | | posterior circulation | | | | | | stroke and | | | | | | recurrentepisodes of | | | | | | vertigo and truncal | | | | | | ataxia. 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 | | | | | | PROCEDURE:The patient | | | | | | was taken to the | | | | | | neuroangiography suite | | | | | | and the PAUSEperformed | | | | | | per routine with correct | | | | | | patient identification, | | | | | | plannedprocedure, | | | | | | allergies, pertinent | | | | | | renal function, history | | | | | | and physical.A 19-gauge | | | | | | needle was introduced | | | | | | into the right common | | | | | | femoral arteryallowing | | | | | | for the placement of the | | | | | | Bentson wire. Over | | | | | | the Bentsonwire, a | | | | | | 5-Portuguese Matheus catheter | | | | | | was introduced and | | | | | | guided over aGlidewire | | | | | | for the catheterization | | | | | | of the vessels listed | | | | | | above. Thearteriotomy | | | | | | was closed with | | | | | | starclose. I was present | | | | | | and participatedin the | | | | | | entire procedure as | | | | | | described above. | | | | | | FINDINGS:The right | | | | | | common carotid artery is | | | | | | within normal limits | | | | | | with nosignificant | | | | | | atheromatous disease, | | | | | | dissection, or other | | | | | | abnormality.Severe | | | | | | tortuosity of the | | | | | | cervical carotid is | | | | | | present. The right | | | | | | internal carotid | | | | | | arteriogram demonstrates | | | | | | stenosis of theproximal | | | | | | left A1. Otherwise | | | | | | there is normal | | | | | | vascularity with | | | | | | noevidence for aneurysm, | | | | | | vascular malformation, | | | | | | or other | | | | | | abnormality.There is no | | | | | | evidence for vasospasm. | | | | | | The venous phase appears | | | | | | normal. The left common | | | | | | carotid artery is | | | | | | within normal limits | | | | | | with nosignificant | | | | | | atheromatous disease, | | | | | | dissection, or other | | | | | | abnormality.Moderate to | | | | | | severe tortuosity of the | | | | | | cervical carotid artery | | | | | | ispresent. The left | | | | | | internal carotid | | | | | | arteriogram demonstrates | | | | | | normal vascularitywith | | | | | | no evidence for | | | | | | aneurysm, vascular | | | | | | malformation, or | | | | | | otherabnormality. There | | | | | | is no evidence for | | | | | | vasospasm. The venous | | | | | | phaseappears normal. The | | | | | | left vertebral | | | | | | arteriogram demonstrates | | | | | | 40 to 50% stenosis of | | | | | | thebasilar artery over a | | | | | | short segment at the | | | | | | level of the origin of | | | | | | theanterior/inferior | | | | | | cerebellar arteries. | | | | | | In addition, | | | | | | irregularityconsistent | | | | | | with atherosclerotic | | | | | | disease is present in | | | | | | the distalbasilar | | | | | | artery. Otherwise, | | | | | | there is normal | | | | | | vascularity with | | | | | | noevidence for aneurysm, | | | | | | vascular malformation, | | | | | | or other | | | | | | abnormality.There is no | | | | | | evidence for vasospasm. | | | | | | The venous phase appears | | | | | | normal. The the right | | | | | | common femoral | | | | | | arteriogram is normal | | | | | | with nosignificant | | | | | | atheromatous disease or | | | | | | dissection. 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 STATUS FINAL / | | | | | | Dr. MARISELA ALFORD | | | | + + + + + + + + | Specimen | + + | | + + + +---------+ + + | Performing | Address | City/State/Zipcode | Phone Number | | Organization | | | | + +---------+ + + | [facility]MENT [facility] | | | | | RADIOLOGY | | | | + +---------+ + + ACT, POC RESULT (09/03/2010 1:18 PM PDT) + +-------+ + + + | Component | Value | Ref Range | Performed | Pathologist | | | | | At | Signature | + +-------+ + + + | ACT, POC | 144 | 90 - 150 | | | | | | Seconds | | | + +-------+ + + + VASC LAB VENOUS DUPLEX LOWER EXTREMITY BILAT COMP (09/03/2010 9:10 AM PDT) + + + + + + | Component | Value | Ref Range | Performed | Pathologist | | | | | At | Signature | + + + + + + | VASC LAB | Med Rec No: | | | | | VENOUS | [id number] Name: | | | | | DUPLEX | [facility]ES [facility] | | | | | LOWER | Birthday: 1955 | | | | | EXTREMITY | Sex: M Alias: | | | | | BILATERAL | Patient Location: | | | | | COMPLETE | 7NSIStatus: Inpatient | | | | | | Active Ordering | | | | | | Physician: ADRIAN | | | | | | Jagdish REYESORDERING | | | | | | PHYS2 : JADIEL MERIDA | | | | | | VDLEB VL VENOUS DUP | | | | | | BILAT CMP LE completed | | | | | | on 09/03/2010 9:10 | | | | | | AMAccession # [id number] | | | | | | RESULT:BILATERAL LOWER | | | | | | EXTREMITY VENOUS DUPLEX | | | | | | SCAN: 09/03/2010 | | | | | | Dictated 09/04/2010 | | | | | | CLINICAL INDICATION: | | | | | | Edema. FINDINGS: The | | | | | | deep and superficial | | | | | | veins of both lower | | | | | | extremitieswere examined | | | | | | with the duplex | | | | | | scanner. There was | | | | | | normal phasic flowwith | | | | | | normal response to | | | | | | augmentation and | | | | | | compression throughout. | | | | | | IMPRESSION: Normal | | | | | | bilateral lower | | | | | | extremity venous duplex | | | | | | scan without evidencefor | | | | | | deep or superficial | | | | | | vein thrombosis. | | | | | | END IMPRESSION I have | | | | | | personally viewed this | | | | | | procedure/exam and | | | | | | reviewed this report. | | | | | | Author: CAITLYN CLEMONS, | | | | | | M.Ashli.Reviewer: , STATUS | | | | | | FINAL / Dr. BRADY | | | | | | DEONTE | | | | | |STATUS FINAL / Dr. CAITLYN CLEMONS | | | | | | | | | | | | | | | | | | | | | | | | | | | | + + + + + + + + | Specimen | + + | | + + + +---------+ + + | Performing | Address | City/State/Zipcode | Phone Number | | Organization | | | | + +---------+ + + | [facility] | | | | | RADIOLOGY | | | | + +---------+ + + CAPILLARY BLOOD GLUCOSE, POC (09/03/2010 8:40 AM PDT) + +---------+ + + + | Component | Value | Ref Range | Performed | Pathologist | | | | | At | Signature | + +---------+ + + + | BLOOD | 106 (H) | 60 - 99 mg/dL | [facility] | | | GLUCOSE, | | | [facility] | | | POC | | | [facility] | | | | | | OF CARE | | | | | | TESTS | | + +---------+ + + + + + | Specimen | + + | | + + + + + + + | Performing | Address | City/State/Zipcode | Phone Number | | Organization | | | | + + + + + | [facility] | [address] | [place], [place] | | | [facility] | [address] | [address] | | | TESTS | | | | + + + + + CAPILLARY BLOOD GLUCOSE, POC (09/03/2010 6:02 AM PDT) + +---------+ + + + | Component | Value | Ref Range | Performed | Pathologist | | | | | At | Signature | + +---------+ + + + | BLOOD | 105 (H) | 60 - 99 mg/dL | [facility] - | | | GLUCOSE, | | | [facility] | | | POC | | | [facility] | | | | | | OF CARE | | | | | | TESTS | | + +---------+ + + + + + | Specimen | + + | | + + + + + + + | Performing | Address | City/State/Zipcode | Phone Number | | Organization | | | | + + + + + | [facility] | [address] | [place], [place] | | | [facility] | [facility] | [phone] | | | TESTS | | | | + + + + + MAGNESIUM, PLASMA (09/03/2010 2:02 AM PDT) + + + + + + | Component | Value | Ref Range | Performed | Pathologist | | | | | At | Signature | + + + + + + | MAGNESIUM,P | Combined. | 1.8 - 2.5 mg/dL | [facility] | | | LASMA | | | DEPARTMENT | | | [...] | + + + + + | [facility] DEPARTMENT OF | [address] | [place] [address] | | | PATHOLOGY | [address] | | | + + + + + COAGULOPATHY PANEL (INR,APTT,FIBRINOGEN) (09/03/2010 2:02 AM PDT) + + + + + + | Component | Value | Ref Range | Performed | Pathologist | | | | | At | Signature | + + + + + + | INR | 1.04Comment: | 0.90 - 1.20 INR | [facility] | | | | INR Therapeutic ranges | | DEPARTMENT | | | | for full | | OF | | | | anticoagulation: | | PATHOLOGY | | | | INR for Venous | | | | | | Thromboembolism | | | | | | (2.0-3.0) | | | | | | INR INR for most | | | | | | patients with mech. | | | | | | valves (2.5-3.5) | | | | | | INR | | | | + + + + + + | APTT | 27.3Comment: | 26.0 - 36.0 | [facility] | | | | APTT Therapeutic Range | seconds | DEPARTMENT | | | | | | OF | | | | (75-120) | | PATHOLOGY | | | | sec | | | | | | Heparin levels of | | | | | | 0.35-0.7 U/mL | | | | + + + + + + | FIBRINOGEN | 351 | 200 - 450 mg/dL | [facility] | | | LEVEL | | | DEPARTMENT | | | [...] | + + + + + | [facility] DEPARTMENT OF | [address] | [place] [address] | | | PATHOLOGY | [address] | | | + + + + + RENAL FUNCTION SET (NA,K,CL,CO2,BUN,CREAT,GLUC,CA,PHOS,ALB ) (09/03/2010 1:11 AM PDT) + + + + + + | Component | Value | Ref Range | Performed | Pathologist | | | | | At | Signature | + + + + + + | GLUCOSE, | Not Recd | 60 - 99 mg/dL | [facility] | | | PLASMA | | | DEPARTMENT | | | (LAB) | | | OF | | | | | | PATHOLOGY | | + + + + + + | BUN, PLASMA | Not Recd | 6 - 20 mg/dL | [facility] | | | (LAB) | | | DEPARTMENT | | | | | | OF | | | | | | PATHOLOGY | | + + + + + + | CREATININE | Not Recd | 0.70 - 1.30 | [facility] | | | PLASMA | | mg/dL | DEPARTMENT | | | (LAB) | | | OF | | | | | | PATHOLOGY | | + + + + + + | ALBUMIN, | Not Recd | 3.5 - 4.7 g/dL | [facility] | | | PLASMA | | | DEPARTMENT | | | (LAB) | | | OF | | | | | | PATHOLOGY | | + + + + + + | CALCIUM, | Not Recd | 8.6 - 10.2 | [facility] | | | PLASMA | | mg/dL | DEPARTMENT | | | (LAB) | | | OF | | | | | | PATHOLOGY | | + + + + + + | PHOSPHORUS, | Not Recd | 2.4 - 4.7 mg/dL | [facility] | | | PLASMA | | | DEPARTMENT | | | (LAB) | | | OF | | | | | | PATHOLOGY | | + + + + + + | SODIUM, | Not Recd | 134 - 143 | [facility] | | | PLASMA | | mmol/L | DEPARTMENT | | | (LAB) | | | OF | | | | | | PATHOLOGY | | + + + + + + | POTASSIUM, | Not Recd | 3.4 - 5.0 | [facility] | | | PLASMA | | mmol/L | DEPARTMENT | | | (LAB) | | | OF | | | | | | PATHOLOGY | | + + + + + + | CHLORIDE, | Not Recd | 97 - 108 mmol/L | [facility] | | | PLASMA | | | DEPARTMENT | | | (LAB) | | | OF | | | | | | PATHOLOGY | | + + + + + + | TOTAL CO2, | Not Recd | 22 - 29 mmol/L | [facility] | | | PLASMA | [...] | + + + + + | [facility] | [address] | [place] [address] | | | PATHOLOGY | [address] | | | + + + + + ANESTHESIA/SEDATION (09/03/2010 12:00 AM PDT) + + + | Narrative | Performed At | + + + | | | + + + + + | Procedure Note | + + | Geneva Ashley - 09/05/2010 1:43 PM PDT | | | + + ANESTHESIA/SEDATION (09/03/2010 12:00 AM PDT) + + + | Narrative | Performed At | + + + | | | + + + + + | Procedure Note | + + | Geneva Ashley - 09/04/2010 4:03 PM PDT | | | + + TRANSTHORACIC ECHOCARDIOGRAM, ADULT (09/03/2010 12:00 AM PDT) + + + | Narrative | Performed At | + + + | | | + + + + + | Procedure Note | + + | Geneva Ashley - 09/03/2010 11:02 AM PDT | | | + + 12 LEAD ECG (09/02/2010 10:51 PM PDT) + + + + + + | Component | Value | Ref Range | Performed | Pathologist | | | | | At | Signature | + + + + + + | VENTRICULAR | 59 | BPM | [facility] | | | RATE | | | OF | | | | | | CARDIOLOGY | | + + + + + + | ATRIAL RATE | 59 | BPM | [facility] | | | | | | OF | | | | | | CARDIOLOGY | | + + + + + + | P-R | 184 | ms | [facility] | | | INTERVAL | | | OF | | | | | | CARDIOLOGY | | + + + + + + | QRS | 96 | ms | [facility] | | | DURATION | | | OF | | | | | | CARDIOLOGY | | + + + + + + | QT | 438 | ms | [facility] | | | | | | OF | | | | | | CARDIOLOGY | | + + + + + + | QTC | 433 | ms | [facility] | | | | | | OF | | | | | | CARDIOLOGY | | + + + + + + | P AXIS | 31 | degrees | [facility] | | | | | | OF | | | | | | CARDIOLOGY | | + + + + + + | R AXIS | 60 | degrees | [facility] | | | | | | OF | | | | | | CARDIOLOGY | | + + + + + + | T AXIS | 63 | degrees | [facility] | | | | | | OF | | | | | | CARDIOLOGY | | + + + + + + | EKG | Sinus | | [facility] | | | DIAGNOSIS | bradycardiaOtherwise | | OF | | | | normal ECG"I have | | CARDIOLOGY | | | | personally interpreted | | | | | | this report, either | | | | | | alone or with a | | | | | | trainee."Confirmed by | | | | | | SAMARA CASILLAS ([id number]) | | | | | | on 09/04/2010 12:45:06 PM | | | | + + + + + + + + | Specimen | + + | | + + + + + | Narrative | Performed At | + + + | Please click | [facility] | | on view image for the detailed interpretation from [employer] results. | CARDIOLOGY | + + + + + + + + | Performing | Address | City/State/Zipcode | Phone Number | | Organization | | | | + + + + + | [facility] | [address] | [place], [place] | | | CARDIOLOGY | [address] | [address] | | + + + + + MAGNESIUM, PLASMA (09/02/2010 10:36 PM PDT) + +-------+ + + + | Component | Value | Ref Range | Performed | Pathologist | | | | | At | Signature | + +-------+ + + + | MAGNESIUM,P | 2.2 | 1.8 - 2.5 mg/dL | [facility] | | | LASMA | | | DEPARTMENT | | | | | | OF | | | | | | PATHOLOGY | | + +-------+ + + + + + | Specimen | + + | | + + + + + + + | Performing | Address | City/State/Zipcode | Phone Number | | Organization | | | | + + + + + | [facility] DEPARTMENT | [address] | [place] [address] | | | PATHOLOGY | [address] | | | + + + + + LIPID SET (TRIG, T CHOL, HDL, CALC LDL) (09/02/2010 10:36 PM PDT) + + + + + + | Component | Value | Ref Range | Performed | Pathologist | | | | | At | Signature | + + + + + + | CHOLESTEROL | 185Comment: | <200 mg/dL | [facility] | | [...] + + + + | TRIGLYCERID | 132Comment: | <150 mg/dL | [facility] | | [...] + + + + | LDL | 128 (H) | <100 mg/dL | [facility] | | | CHOLESTEROL | | | DEPARTMENT | | | , | | | OF | | | CALCULATED | | | PATHOLOGY | | + + + + + + | VLDL | 26 | <31 mg/dL | [facility] | | | CHOLESTEROL | | | DEPARTMENT | | | , | | | OF | | | CALCULATED | | | PATHOLOGY | | + + + + + + | NON-HDL | 154 (H)Comment: non-HDL | <130 mg/dL | [facility] | [...] | + + + + + | [facility] | [address] | [place] [address] | | | PATHOLOGY | [address] | | | + + + + + HEMOGLOBIN A1C, BLOOD (09/02/2010 10:36 PM PDT) + +---------+ + + + | Component | Value | Ref Range | Performed | Pathologist | | | | | At | Signature | + +---------+ + + + | HEMOGLOBIN | 6.1 (H) | <5.7 % | [facility] | | | A1C | | | [facility] | | | | | | LABORATORY | | + +---------+ + + + + + | Specimen | + + | Blood - Blood | + + + + + | Narrative | Performed At | + + + | HbA1c Interpretive Information If you are screening for | [facility] | | diabetes: <5.7 Non-diabetic 5.7-6.4 | REG[facility] | | Prediabetes >6.4 Diabetes, if confirmed For | LABORATORY | | monitoring of diabetes control: <7.0 Usual goal of | | | treatment; low risk for complications 7.0-8.0 Some | | | increased risk for long-term complications >8.0 | | | Higher risk of complications; strongly consider | | | intensifying therapy [facility] ([facility]) | | | [facility] [place] [address] [address] | | | [place] [address] | | + + + + + + + + | Performing | Address | City/State/Zipcode | Phone Number | | Organization | | | | + + + + + | [facility] | [address] | [place] [address] | | | LABORATORY | | | | + + + + + CBC ONLY (09/02/2010 10:36 PM PDT) + + + + + + | Component | Value | Ref Range | Performed | Pathologist | | | | | At | Signature | + + + + + + | WHITE CELL | 10.3 | 4.4 - 11.0 K/cu | [facility] | | | COUNT | | mm | DEPARTMENT | | | | | | OF | | | | | | PATHOLOGY | | + + + + + + | RED CELL | 5.10 | 4.50 - 5.90 | [facility] | | | COUNT | | M/cu mm | DEPARTMENT | | | | | | OF | | | | | | PATHOLOGY | | + + + + + + | HEMOGLOBIN | 15.8 | 13.5 - 17.5 | [facility] | | | | | g/dL | DEPARTMENT | | | | | | OF | | | | | | PATHOLOGY | | + + + + + + | HEMATOCRIT | 47.8 | 41.0 - 53.0 % | [facility] | | | | | | DEPARTMENT | | | | | | OF | | | | | | PATHOLOGY | | + + + + + + | MCV | 93.9 | 80.0 - 96.0 fL | [facility] | | | | | | DEPARTMENT | | | | | | OF | | | | | | PATHOLOGY | | + + + + + + | MCHC | 33.1 (L) | 33.4 - 35.5 | [facility] | | | | | g/dL | DEPARTMENT | | | | | | OF | | | | | | PATHOLOGY | | + + + + + + | RDW | 13.3 | 11.5 - 15.0 % | [facility] | | | | | | DEPARTMENT | | | | | | OF | | | | | | PATHOLOGY | | + + + + + + | PLATELET | 329 | 150 - 400 K/cu | [facility] | | | COUNT | | mm | DEPARTMENT | | | | | [...] | + + + + + | [facility] DEPARTMENT OF | [address] | [place] [address] | | | PATHOLOGY | [address] | | | + + + + + COMPLETE METABOLIC SET (NA,K,CL,CO2,BUN,CREAT,GLUC,CA,AST,ALT,BILI TOTAL,ALK PHOS,ALB,PROT TOTAL) (09/02/2010 10:36 PM PDT) + + + + + + | Component | Value | Ref Range | Performed | Pathologist | | | | | At | Signature | + + + + + + | GLUCOSE, | 117 (H) | 60 - 99 mg/dL | [facility] | | | PLASMA | | | DEPARTMENT | | | (LAB) | | | OF | | | | | | PATHOLOGY | | + + + + + + | BUN, PLASMA | 10 | 6 - 20 mg/dL | [facility] | | | (LAB) | | | DEPARTMENT | | | | | | OF | | | | | | PATHOLOGY | | + + + + + + | CREATININE | 0.86 | 0.70 - 1.30 | [facility] | | | PLASMA | | mg/dL | DEPARTMENT | | | (LAB) | | | OF | | | | | | PATHOLOGY | | + + + + + + | TOTAL | 7.6 | 6.1 - 7.9 g/dL | [facility] | | | PROTEIN, | | | DEPARTMENT | | | PLASMA | | | OF | | | (LAB) | | | PATHOLOGY | | + + + + + + | ALBUMIN, | 4.3 | 3.5 - 4.7 g/dL | [facility] | | | PLASMA | | | DEPARTMENT | | | (LAB) | | | OF | | | | | | PATHOLOGY | | + + + + + + | CALCIUM, | 9.5 | 8.6 - 10.2 | [facility] | | | PLASMA | | mg/dL | DEPARTMENT | | | (LAB) | | | OF | | | | | | PATHOLOGY | | + + + + + + | BILIRUBIN | 0.6 | 0.3 - 1.2 mg/dL | [facility] | | | TOTAL | | | DEPARTMENT | | | | | | OF | | | | | | PATHOLOGY | | + + + + + + | ALK PHOS | 82 | 53 - 128 U/L | [facility] | | | | | | DEPARTMENT | | | | | | OF | | | | | | PATHOLOGY | | + + + + + + | AST(SGOT) | 20 | 15 - 41 U/L | [facility] | | | | | | DEPARTMENT | | | | | | OF | | | | | | PATHOLOGY | | + + + + + + | SODIUM, | 137 | 134 - 143 | [facility] | | | PLASMA | | mmol/L | DEPARTMENT | | | (LAB) | | | OF | | | | | | PATHOLOGY | | + + + + + + | POTASSIUM, | 3.6 | 3.4 - 5.0 | [facility] | | | PLASMA | | mmol/L | DEPARTMENT | | | (LAB) | | | OF | | | | | | PATHOLOGY | | + + + + + + | CHLORIDE, | 99 | 97 - 108 mmol/L | [facility] | | | PLASMA | | | DEPARTMENT | | | (LAB) | | | OF | | | | | | PATHOLOGY | | + + + + + + | TOTAL CO2, | 29Comment: New Total | 22 - 29 mmol/L | [facility] | | | PLASMA | CO2 reference range | | DEPARTMENT | | | (LAB) | effective 11/23/10. | | OF | | | | | | PATHOLOGY | | + + + + + + | ALT (SGPT) | 24 | 13 - 48 U/L | [facility] | | | | | | DEPARTMENT | | | | | | OF | | | | | | PATHOLOGY | | + + + + + + | ANION GAP | 9 | 4 - 11 mmol/L | [facility] | | | | | | DEPARTMENT | | | | | | OF | | | | | | PATHOLOGY | | + + + + + + | ANION | 8 | 4 - 11 mmol/L | [facility] | | | GAP(ALB | | | DEPARTMENT | | | CORRECTED) | | | OF | | | | | | PATHOLOGY | | + + + + + + + + | Specimen | + + | Blood - Blood | + + + + + + + | Performing | Address | City/State/Zipcode | Phone Number | | Organization | | | | + + + + + | [facility] | [address] | [place] [address] | | | PATHOLOGY | [address] | | | + + + + + CT CTA NECK WITH CONTRAST (09/02/2010 8:51 PM PDT) + + + + + + | Component | Value | Ref Range | Performed | Pathologist | | | | | At | Signature | + + + + + + | CT CTA NECK | Technique: CT images | | | | | W CONTRAST | were obtained through | | | | | | the brain without | | | | | | IVcontrast. CTA images | | | | | | were then obtained | | | | | | through the neck and | | | | | | brainfollowing the | | | | | | intravenous | | | | | | administration of | | | | | | iodinated contrast. | | | | | | Imagepost-processing was | | | | | | then performed on an | | | | | | independent | | | | | | workstation,creating | | | | | | multiplanar and/or 3D | | | | | | reformatted images for | | | | | | comprehensiveanalysis | | | | | | and diagnosis. Any | | | | | | stenosis reported is | | | | | | calculated usingthe | | | | | | estimated diameter of | | | | | | the distal normal vessel | | | | | | (e.g., ICA) in | | | | | | thedenominator. 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 | | | | | | Comparison: Outside | | | | | | MRI/MRA brain 09/02/2010. | | | | | | Findings:Brain: There | | | | | | is no intracranial | | | | | | hemorrhage or abnormal | | | | | | extra-axialcollections. | | | | | | An old lacunar infarct | | | | | | is identified involving | | | | | | the leftcaudate head, a | | | | | | portion of the adjacent | | | | | | anterior limb of the | | | | | | leftinternal capsule and | | | | | | the anterior left | | | | | | putamen. Brain | | | | | | parenchymaotherwise | | | | | | appears unremarkable. | | | | | | Ventricular caliber is | | | | | | normal. Thean | | | | | | air-fluid level and | | | | | | frothy secretions are | | | | | | present within the | | | | | | leftmaxillary sinus. | | | | | | Additional mucosal | | | | | | thickening is seen | | | | | | within theleft maxillary | | | | | | sinus. There is a | | | | | | large mucous stir | | | | | | existingdependently | | | | | | within the right | | | | | | maxillar sinus. | | | | | | Visualized | | | | | | paranasalsinuses are | | | | | | otherwise clear. Left | | | | | | mastoid air cells are | | | | | | clear. Theright | | | | | | mastoid is relatively | | | | | | less pneumatized and | | | | | | contains areas | | | | | | ofsclerosis, possibly | | | | | | reflecting sequela of | | | | | | prior mastoiditis. CTA | | | | | | brain: The right | | | | | | vertebral artery | | | | | | abruptly changes caliber | | | | | | as itbecomes intradural | | | | | | and continues as a | | | | | | relatively small caliber | | | | | | vesselthat appears to | | | | | | end in the pica. This | | | | | | caliber change is felt | | | | | | to bemost likely normal. | | | | | | The the left | | | | | | vertebral artery is | | | | | | dominant.There is a | | | | | | stenosis which measures | | | | | | slightly less than 50% | | | | | | at thejunction of the | | | | | | left vertebral artery | | | | | | and the basilar artery. | | | | | | Thebasilar artery | | | | | | otherwise appears | | | | | | unremarkable throughout | | | | | | its courseposterior | | | | | | cerebral arteries appear | | | | | | unremarkable. A small | | | | | | rightposterior | | | | | | communicating artery is | | | | | | identified. The left | | | | | | posteriorcommunicating | | | | | | artery is either | | | | | | hypoplastic or aplastic. | | | | | | There is calcification | | | | | | seen involving the | | | | | | cavernous and | | | | | | supraclinoidportions of | | | | | | both internal carotid | | | | | | arteries, without | | | | | | associated areasof | | | | | | hemodynamically | | | | | | significant narrowing. | | | | | | The MCA | | | | | | distributionsappear | | | | | | unremarkable. The | | | | | | right A1 segment is | | | | | | diminutive and there grey | | | | | | large anterior | | | | | | communicating artery. | | | | | | The FRANKO | | | | | | distributionsotherwise | | | | | | appear unremarkable. CTA | | | | | | neck: The aortic arch | | | | | | is left-sided. The | | | | | | left common | | | | | | carotidartery and the | | | | | | brachiocephalic artery | | | | | | have a common origin off | | | | | | theaortic arch. The | | | | | | common, internal and | | | | | | external arteries are | | | | | | ofnormal caliber | | | | | | throughout their | | | | | | extracranial courses. | | | | | | The vertebralarteries | | | | | | are also of normal | | | | | | caliber throughout their | | | | | | extracranialcourses. | | | | | | The left vertebral | | | | | | artery is moderately | | | | | | larger than theleft. | | | | | | The proximal left | | | | | | vertebral artery and | | | | | | portions of bothinternal | | | | | | carotid arteries are | | | | | | tortuous. There are | | | | | | scattered areas of | | | | | | centrilobular emphysema. | | | | | | Mild | | | | | | bilateraldependent | | | | | | groundglass opacity | | | | | | likely represent | | | | | | atelectasis. | | | | | | Smalllymph nodes are | | | | | | seen scattered | | | | | | throughout all of the | | | | | | cervical | | | | | | nodaldistributions, | | | | | | which are more numerous | | | | | | than typical. There is | | | | | | noadenopathy. | | | | | | Impression:1. Less | | | | | | than 50% stenosis at the | | | | | | origin of the left | | | | | | vertebral arteryand the | | | | | | basilar artery. The | | | | | | caliber change involving | | | | | | the rightvertebral | | | | | | artery, as it becomes | | | | | | intradural, is felt to | | | | | | likely benormal.2. 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 No | | | | | | hemodynamically | | | | | | significant carotid | | | | | | stenoses.4. Small | | | | | | lymph nodes within all | | | | | | of the cervical susan | | | | | | distributionsare more | | | | | | numerous than typical. | | | | | | There is no | | | | | | adenopathy. I have | | | | | | personally viewed this | | | | | | procedure/exam and | | | | | | reviewed this report. | | | | | | Author: BHARAT | | | | | | Mendoza HAIRSTONwer: | | | | | | NICKI MORALES M.D. | | | | | | STATUS FINAL / Dr. CACERES | | | | | | RICCELLISTATUS FINAL / | | | | | | Dr. NICKI TRAVIS | | | | | | RESULT MODIFIED / | | | | | | NICKI TRAVIS | | | | | | PENDING FINAL APPROVAL / | | | | | | Dr. NICHOLSON | | | | | | YAIMA | | | | | | PRELIMINARY - UNSIGNED / | | | | | | Dr. BHARAT HAIRSTON | | | | + + + + + + + + | Specimen | + + | | + + + +---------+ + + | Performing | Address | City/State/Zipcode | Phone Number | | Organization | | | | + +---------+ + + | [facility] DEPARTMENT OF | | | | | RADIOLOGY | | | | + +---------+ + + CT CTA HEAD WITH CONTRAST (09/02/2010 8:51 PM PDT) + + + + + + | Component | Value | Ref Range | Performed | Pathologist | | | | | At | Signature | + + + + + + | CT CTA HEAD | Technique: CT images | | | | | W CONTRAST | were obtained through | | | | | | the brain without | | | | | | IVcontrast. CTA images | | | | | | were then obtained | | | | | | through the neck and | | | | | | brainfollowing the | | | | | | intravenous | | | | | | administration of | | | | | | iodinated contrast. | | | | | | Imagepost-processing was | | | | | | then performed on an | | | | | | independent | | | | | | workstation,creating | | | | | | multiplanar and/or 3D | | | | | | reformatted images for | | | | | | comprehensiveanalysis | | | | | | and diagnosis. Any | | | | | | stenosis reported is | | | | | | calculated usingthe | | | | | | estimated diameter of | | | | | | the distal normal vessel | | | | | | (e.g., ICA) in | | | | | | thedenominator. 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 | | | | | | Comparison: Outside | | | | | | MRI/MRA brain 09/02/2010. | | | | | | Findings:Brain: There | | | | | | is no intracranial | | | | | | hemorrhage or abnormal | | | | | | extra-axialcollections. | | | | | | An old lacunar infarct | | | | | | is identified involving | | | | | | the leftcaudate head, a | | | | | | portion of the adjacent | | | | | | anterior limb of the | | | | | | leftinternal capsule and | | | | | | the anterior left | | | | | | putamen. Brain | | | | | | parenchymaotherwise | | | | | | appears unremarkable. | | | | | | Ventricular caliber is | | | | | | normal. Thean | | | | | | air-fluid level and | | | | | | frothy secretions are | | | | | | present within the | | | | | | leftmaxillary sinus. | | | | | | Additional mucosal | | | | | | thickening is seen | | | | | | within theleft maxillary | | | | | | sinus. There is a | | | | | | large mucous stir | | | | | | existingdependently | | | | | | within the right | | | | | | maxillar sinus. | | | | | | Visualized | | | | | | paranasalsinuses are | | | | | | otherwise clear. Left | | | | | | mastoid air cells are | | | | | | clear. Theright | | | | | | mastoid is relatively | | | | | | less pneumatized and | | | | | | contains areas | | | | | | ofsclerosis, possibly | | | | | | reflecting sequela of | | | | | | prior mastoiditis. CTA | | | | | | brain: The right | | | | | | vertebral artery | | | | | | abruptly changes caliber | | | | | | as itbecomes intradural | | | | | | and continues as a | | | | | | relatively small caliber | | | | | | vesselthat appears to | | | | | | end in the pica. This | | | | | | caliber change is felt | | | | | | to bemost likely normal. | | | | | | The the left | | | | | | vertebral artery is | | | | | | dominant.There is a | | | | | | stenosis which measures | | | | | | slightly less than 50% | | | | | | at thejunction of the | | | | | | left vertebral artery | | | | | | and the basilar artery. | | | | | | Thebasilar artery | | | | | | otherwise appears | | | | | | unremarkable throughout | | | | | | its courseposterior | | | | | | cerebral arteries appear | | | | | | unremarkable. A small | | | | | | rightposterior | | | | | | communicating artery is | | | | | | identified. The left | | | | | | posteriorcommunicating | | | | | | artery is either | | | | | | hypoplastic or aplastic. | | | | | | There is calcification | | | | | | seen involving the | | | | | | cavernous and | | | | | | supraclinoidportions of | | | | | | both internal carotid | | | | | | arteries, without | | | | | | associated areasof | | | | | | hemodynamically | | | | | | significant narrowing. | | | | | | The MCA | | | | | | distributionsappear | | | | | | unremarkable. The | | | | | | right A1 segment is | | | | | | diminutive and there grey | | | | | | large anterior | | | | | | communicating artery. | | | | | | The FRANKO | | | | | | distributionsotherwise | | | | | | appear unremarkable. CTA | | | | | | neck: The aortic arch | | | | | | is left-sided. The | | | | | | left common | | | | | | carotidartery and the | | | | | | brachiocephalic artery | | | | | | have a common origin off | | | | | | theaortic arch. The | | | | | | common, internal and | | | | | | external arteries are | | | | | | ofnormal caliber | | | | | | throughout their | | | | | | extracranial courses. | | | | | | The vertebralarteries | | | | | | are also of normal | | | | | | caliber throughout their | | | | | | extracranialcourses. | | | | | | The left vertebral | | | | | | artery is moderately | | | | | | larger than theleft. | | | | | | The proximal left | | | | | | vertebral artery and | | | | | | portions of bothinternal | | | | | | carotid arteries are | | | | | | tortuous. There are | | | | | | scattered areas of | | | | | | centrilobular emphysema. | | | | | | Mild | | | | | | bilateraldependent | | | | | | groundglass opacity | | | | | | likely represent | | | | | | atelectasis. | | | | | | Smalllymph nodes are | | | | | | seen scattered | | | | | | throughout all of the | | | | | | cervical | | | | | | nodaldistributions, | | | | | | which are more numerous | | | | | | than typical. There is | | | | | | noadenopathy. | | | | | | Impression:1. Less | | | | | | than 50% stenosis at the | | | | | | origin of the left | | | | | | vertebral arteryand the | | | | | | basilar artery. The | | | | | | caliber change involving | | | | | | the rightvertebral | | | | | | artery, as it becomes | | | | | | intradural, is felt to | | | | | | likely benormal.2. 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 No | | | | | | hemodynamically | | | | | | significant carotid | | | | | | stenoses.4. Small | | | | | | lymph nodes within all | | | | | | of the cervical susan | | | | | | distributionsare more | | | | | | numerous than typical. | | | | | | There is no | | | | | | adenopathy. I have | | | | | | personally viewed this | | | | | | procedure/exam and | | | | | | reviewed this report. | | | | | | Author: BHARAT | | | | | | Mendoza HAIRSTONwer: | | | | | | NICKI MORALES M.D. | | | | | | STATUS FINAL / Dr. CACERES | | | | | | RICCELLISTATUS FINAL / | | | | | | Dr. NICKI TRAVIS | | | | | | RESULT MODIFIED / Dr. | | | | | | NICKI TRAVIS | | | | | | PENDING FINAL APPROVAL / | | | | | | Dr. NICHOLSON | | | | | | YAIMA | | | | | | PRELIMINARY - UNSIGNED / | | | | | | Dr. BHARAT HAIRSTON | | | | + + + + + + + + | Specimen | + + | | + + + +---------+ + + | Performing | Address | City/State/Zipcode | Phone Number | | Organization | | | | + +---------+ + + | [facility] DEPARTMENT OF | | | | | RADIOLOGY | | | | + +---------+ + + CHEM 8 W/H&H,POC (09/02/2010 7:35 PM PDT) + +---------+ + + + | Component | Value | Ref Range | Performed | Pathologist | | | | | At | Signature | + +---------+ + + + | SODIUM, POC | 139 | 134 - 143 | [facility] - | | | | | | [place] | | | | | | [facility] | | | | | | OF CARE | | | | | | TESTS | | + +---------+ + + + | POTASSIUM, | 4.1 | 3.4 - 5.0 | [facility] - | | | POC | | | [place] | | | | | | [facility] | | | | | | OF CARE | | | | | | TESTS | | + +---------+ + + + | CHLORIDE, | 103 | 97 - 108 | [facility] - | | | POC | | | [place] | | | | | | [facility] | | | | | | OF CARE | | | | | | TESTS | | + +---------+ + + + | IONIZED | 1.15 | 1.14 - 1.32 | [facility] - | | | CALCIUM, | | | [facility] | | | POC | | | [facility] | | | | | | OF CARE | | | | | | TESTS | | + +---------+ + + + | TCO2, POC | 26 | 23 - 31 | [facility] - | | | | | | [place] | | | | | | [facility] | | | | | | OF CARE | | | | | | TESTS | | + +---------+ + + + | GLUCOSE, | 131 (H) | 60 - 99 | [facility] - | | | POC | | | [place] | | | | | | [facility] | | | | | | OF CARE | | | | | | TESTS | | + +---------+ + + + | BUN, POC | 12 | 6 - 20 | [facility] - | | | | | | [place] | | | | | | [facility] | | | | | | OF CARE | | | | | | TESTS | | + +---------+ + + + | CREATININE, | 0.7 | 0.7 - 1.3 | [facility] - | | | POC | | | [place] | | | | | | [facility] | | | | | | OF CARE | | | | | | TESTS | | + +---------+ + + + | HEMOGLOBIN, | 17.3 | 13.5 - 17.5 | [facility] - | | | P[facility] | | | [facility] | | | | | | [facility] | | | | | | OF CARE | | | | | | TESTS | | + +---------+ + + + | HEMATOCRIT, | 51 | 40.5 - 52.5 | [facility] - | | | POC | | | [place] | | | | | | [facility] | | | | | | OF CARE | | | | | | TESTS | | + +---------+ + + + + + | Specimen | + + | | + + + + + + + | Performing | Address | City/State/Zipcode | Phone Number | | Organization | | | | + + + + + | [facility] | [address] | [place], [place] | | | [place] [facility] | [address] | [address] | | | TESTS | | | | + + + + + documented in this encounter Visit Diagnoses + + | Diagnosis | + + | Stroke (HCC) Unspecified cerebral artery occlusion with cerebral infarction | + + | Ataxia Lack of coordination | + + | Unspecified cerebral artery occlusion with cerebral infarction | + + | Other specified cardiac dysrhythmias(427.89) Other specified cardiac dysrhythmias | + + documented in this encounter Administered Medications + +--------+ +--------+------+------+ | Medication Order | MAR | Action | Dose | Rate | Site | | | Action | Date | | | | + +--------+ +--------+------+------+ | aspirin tablet 325 mg 325 mg, | Given | 09/06/19 | 325 mg | | | | oral, DAILY, First dose on Tue | | 11 8:21 | | | | | 09/02/10 at 2230, Until | | AM PDT | | | | | Discontinued | | | | | | + +--------+ +--------+------+------+ +-------+ +--------+---+---+ | Given | 09/05/19 | 325 mg | | | | | 11 10:32 | | | | | | AM PDT | | | | +-------+ +--------+---+---+ | Given | 09/04/19 | 325 mg | | | | | 11 12:40 | | | | | | AM PDT | | | | +-------+ +--------+---+---+ +---+---+ | | | +---+---+ + +-------+ +--------+---+---+ | Clopidogrel (aka PLAVIX) tablet | Given | 09/04/19 | 600 mg | | | | 600 mg 600 mg, oral, ONCE, 1 | | 11 12:40 | | | | | dose, Wed09/02/10 at 2230 | | AM PDT | | | | + +-------+ +--------+---+---+ +---+---+ | | | +---+---+ + +-------+ +-------+---+---+ | clopidogrel (aka PLAVIX) tablet | Given | 09/06/19 | 75 mg | | | | 75 mg 75 mg, oral, DAILY, First | | 11 8:21 | | | | | dose on Wed09/03/10 at 0900, | | AM PDT | | | | | Until Discontinued | | | | | | + +-------+ +-------+---+---+ +-------+ +-------+---+---+ | Given | 09/05/19 | 75 mg | | | | | 11 10:32 | | | | | | AM PDT | | | | +-------+ +-------+---+---+ | Given | 09/04/19 | 75 mg | | | | | 11 9:00 | | | | | | AM PDT | | | | +-------+ +-------+---+---+ +---+---+ | | | +---+---+ + +-------+ +-------+---+---+ | iohexol (aka OMNIPAQUE) | Given | 09/04/19 | 70 mL | | | | injection 150 mL 150 mL, | | 11 2:03 | | | | | intra-arterial, PROCEDURE ONCE, 1 | | PM PDT | | | | | dose, [facility] 09/03/10 at 1400 | | | | | | + +-------+ +-------+---+---+ +---+---+ | | | +---+---+ + +-------+ +-------+---+---+ | lisinopril (aka PRINIVIL) | Given | 09/06/19 | 10 mg | | | | tablet 10 mg 10 mg, oral, DAILY, | | 11 8:21 | | | | | First dose on [facility] 09/04/10 at | | AM PDT | | | | | 1130, Until Discontinued | | | | | | + +-------+ +-------+---+---+ +-------+ +-------+---+---+ | Given | 09/05/19 | 10 mg | | | | | 11 1:31 | | | | | | PM PDT | | | | +-------+ +-------+---+---+ +---+---+ | | | +---+---+ + +-------+ +-------+---+---+ | metoclopramide (aka REGLAN) | Given | 09/03/19 | 10 mg | | | | injection 5-10 mg 5-10 mg, | | 11 10:36 | | | | | intravenous, EVERY 4 HOURS | | PM PDT | | | | | NEEDED, Starting Wed09/02/10 at | | | | | | | 2217, Until Wed09/04/10 at 1128, | | | | | | | nausea/vomiting | | | | | | + +-------+ +-------+---+---+ +---+---+ | | | +---+---+ + +---------+ +---+ +---+ | NaCl 0.9%-KCl 20 mEq/L IV | New Bag | 09/04/19 | | 50 mL/hr | | | infusion intravenous, | | 11 12:00 | | | | | CONTINUOUS, Starting Wed09/02/10 | | AM PDT | | | | | at 2230, Until Wed09/05/10 at | | | | | | | 1912, at 1-125 mL/hr | | | | | | + +---------+ +---+ +---+ +---+---+ | | | +---+---+ + +-------+ +------+---+---+ | ondansetron (aka ZOFRAN) | Given | 09/04/19 | 4 mg | | | | injection 4 mg 4 mg, | | 11 9:08 | | | | | intravenous, EVERY 8 HOURS, 3 | | PM PDT | | | | | doses, First dose on Wed09/03/10 | | | | | | | at 0600, Last dose on Wed09/03/10 | | | | | | | at 2200 | | | | | | + +-------+ +------+---+---+ +-------+ +------+---+---+ | Given | 09/04/19 | 4 mg | | | | | 11 7:02 | | | | | | AM PDT | | | | +-------+ +------+---+---+ +---+---+ | | | +---+---+ + +-------+ +------+---+---+ | ondansetron (aka ZOFRAN) | Given | 09/03/19 | 4 mg | | | | injection 4 mg 4 mg, | | 11 10:37 | | | | | intravenous, EVERY 8 HOURS | | PM PDT | | | | | NEEDED, Starting Wed09/04/10 at | | | | | | | 0600, Until Wed09/05/10 at 1912, | | | | | | | nausea/vomiting | | | | | | + +-------+ +------+---+---+ +---+---+ | | | +---+---+ + +-------+ +--------+---+---+ | potassium chloride IV 10 mEq | Given | 09/05/19 | 10 mEq | | | | 10 mEq, intravenous, NEEDED, | | 11 4:12 | | | | | Starting Wed09/03/10 at 0149, | | AM PDT | | | | | Until Wed09/04/10 at 1128, | | | | | | | hypokalemia | | | | | | + +-------+ +--------+---+---+ +-------+ +--------+---+---+ | Given | 09/04/19 | 10 mEq | | | | | 11 4:59 | | | | | | AM PDT | | | | +-------+ +--------+---+---+ | Given | 09/04/19 | 10 mEq | | | | | 11 3:09 | | | | | | AM PDT | | | | +-------+ +--------+---+---+ +---+---+ | | | +---+---+ + +-------+ +--------+---+---+ | potassium chloride SR (aka | Given | 09/05/19 | 10 mEq | | | | K-DUR) tablet 10-40 mEq 10-40 | | 11 5:16 | | | | | mEq, oral, NEEDED, Starting | | AM PDT | | | | | 09/03/10 at 0150, Until Sue | | | | | | | 09/04/10 at 1128, hypokalemia | | | | | | + +-------+ +--------+---+---+ +---+---+ | | | +---+---+ + +-------+ +--------+---+---+ | ranitidine (aka ZANTAC) tablet | Given | 09/06/19 | 150 mg | | | | 150 mg 150 mg, oral, TWICE | | 11 8:21 | | | | | DAILY, First dose on Wed09/02/10 | | AM PDT | | | | | at 2230, Until Discontinued | | | | | | + +-------+ +--------+---+---+ +-------+ +--------+---+---+ | Given | 09/05/19 | 150 mg | | | | | 11 9:40 | | | | | | PM PDT | | | | +-------+ +--------+---+---+ | Given | 09/05/19 | 150 mg | | | | | 11 10:32 | | | | | | AM PDT | | | | +-------+ +--------+---+---+ +---+---+ | | | +---+---+ + +-------+ +-------+---+---+ | rosuvastatin (aka CRESTOR) | Given | 09/06/19 | 40 mg | | | | tablet 40 mg 40 mg, oral, DAILY, | | 11 8:21 | | | | | First dose on Wed09/04/10 at | | AM PDT | | | | | 0900, Until Discontinued | | | | | | + +-------+ +-------+---+---+ +-------+ +-------+---+---+ | Given | 09/05/19 | 40 mg | | | | | 11 10:32 | | | | | | AM PDT | | | | +-------+ +-------+---+---+ +---+---+ | | | +---+---+ + +-------+ + +---+---+ | senna-docusate (amado Meyer) | Given | 09/06/19 | 1 tablet | | | | 8.6-50 mg 1 Tab 1 tablet, oral, | | 11 8:21 | | | | | TWICE DAILY, First dose on Wed | | AM PDT | | | | | 09/02/10 at 2230, Until | | | | | | | Discontinued | | | | | | + +-------+ + +---+---+ +-------+ + +---+---+ | Given | 09/05/19 | 1 tablet | | | | | 11 9:40 | | | | | | PM PDT | | | | +-------+ + +---+---+ | Given | 09/05/19 | 1 tablet | | | | | 11 10:32 | | | | | | AM PDT | | | | +-------+ + +---+---+ +---+---+ | | | +---+---+ + +-------+ +-------+---+---+ | simvastatin (aka ZOCOR) tablet | Given | 09/04/19 | 40 mg | | | | 40 mg 40 mg, oral, EVERY | | 11 9:08 | | | | | EVENING, First dose on Wed | | PM PDT | | | | | 09/03/10 at 0115, Until | | | | | | | Discontinued | | | | | | + +-------+ +-------+---+---+ +-------+ +-------+---+---+ | Given | 09/04/19 | 40 mg | | | | | 11 2:30 | | | | | | AM PDT | | | | +-------+ +-------+---+---+ +---+---+ | | | +---+---+ documented in this encounter
--- OUTSIDE RECORDS SUMMARY | ~2020-02-21 | XMS | Encounter Summary ---
Demographics + + + | Address | [address] | | | [place] [address] | + + + | Home Phone | | + + + | Preferred Language | Unknown | + + + | Marital Status | Unknown | + + + | Confucianism Affiliation | Unknown | + + + | Race | White | + + + | Ethnic Group | Not or | + + + Author + + + | Author | [facility] | | | and [place] | + + + | Organization | [facility] | | | and [place] | + + + | Address | Unknown | + + + | Phone | Unavailable | + + + Support + + + + + | Name | Relationship | Address | Phone | + + + + + | Valeriedileep Gamboawell | ECON | [address] | | | | | [place] | | | | | [address] | | + + + + + Care Team Providers + +------+ + | Care Body Art Technician Name | Role | Phone | + +------+ + | Wnig Justice PA-C | PCP | | + [...] | | | | | | | torres martinez | | | | | | | artery | | | | | | | Procedures | | | | | | | MI CABG, | | | | | | | ARTERIAL, | | | | | | | THREE | | | | | | | CORONARY | | | | | | | ARTERY | | | | | | | BYPASS GRAFT | | | +--------+--------+ + + + + Encounter Details +--------+---------+ + + + | Date | Type | Department | Care Team | Description | +--------+---------+ + + + | 02/13/ | Surgery | [facility] | Cj Faustin MD | CORONARY ARTERY | | 2019 | | [facility] | [address] | BYPASS GRAFT | | | | OPERATING ROOM [address] | [place] E NICKIE MD | | | | | [place] | [address] | | | | | [place] | | | | | | [address] | | | | | | [phone] | | | +--------+---------+ + + + [...] + + + | Blood Pressure | 134/69 | 02/14/2020 1:15 PM | | | | | PDT | | + + + + + | Pulse | 89 | 02/14/2020 1:15 PM | | | | | PDT | | + + + + + | Temperature | 35.3 C (95.5 F) | 02/14/2020 1:15 PM | | | | | PDT | | + + + + + | Respiratory Rate | 19 | 02/14/2020 1:15 PM | | | | | PDT | | + + + + + | Oxygen Saturation | 99% | 02/14/2020 1:15 PM | | | | | PDT | | + + + + + | Inhaled Oxygen | - | - | | | Concentration | | | | + + + + + | Weight | 90 kg (198 lb 6.6 | 02/14/2020 6:19 AM | | | | oz) | [...] Ash Jr. AGE/SEX: 64 y.o. 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, left eye Diabetes mellitus (HCC) 2012 Diabetes mellitus type I (HCC) 2012 Heart attack (HCC) 10/2019 Loose, teeth upper and lower dentures Stroke (HCC) 2012 right sided, no residual effects per pt Past Surgical History: Procedure Laterality Date CARDIAC CATHERIZATION N/A 11/09/2019 Procedure: CV COR ANGIO; Surgeon: Gary Avery MD; Location: [facility] CV LAB CARDIAC CATHERIZATION N/A 11/09/2019 Procedure: CV LHC; Surgeon: Gary Avery MD; Location: [facility] CV LAB CARDIAC CATHERIZATION N/A 11/09/2019 Procedure: CV Stent; Surgeon: Gary Avery MD; Location: [facility] CV LAB CORONARY ARTERY BYPASS GRAFT N/A 02/14/2020 Procedure: CORONARY ARTERY BYPASS GRAFT; Surgeon: Cj Faustin MD; Location: [facility] MAIN O R TONSILLECTOMY No Known [...] being discharged with instructions on cardiac diet, robb rnal precautions x 12 weeks and surgical incision care are according to the Society of Thora cic Surgeon guidelines. The patient is given instructions to start cardiac rehabilitation in accordance with post framer recommendations. Pt advised not to drive for [...] manage prescriptions until pt has seen seen Blintze Roller and Primary Care Physician, who will resume [...] 02/20/21 Follow up: Cj Faustin MD [address] [facility] [address] Schedule an appointment as soon as possible for a visit in 2 weeks Post-op Gary Avery MD [address] [address] Schedule an appointment as soon as possible for a visit in 2 weeks Post-op Wing Justice PA-C [address] [address] Schedule an appointment as soon as possible [...] you to schedule a time. Please call [phone] for questions/concerns Follow up with your Blintze Roller, Dr. Avery, in 2 weeks. Please make an appointment. Follow up with your Primary Care Physician in 3-4 weeks. Please make an appointment. General Instructions Follow the instructions in the the [facility] Cardiac Surgery Navigation Guide. This guide is a n excellent resource for concerns you and your family may have as you heal from surgery. Watch the [facility] Heart Surgery video on YouTube: [email or web address].youtube.com/watch?[email or web address] The [facility] Cardiothoracic Surgery office will contact you within 72 hours of your hospital discharge. If you do not receive a phone call or have any concerns before then, please call our office Mon-Fri 8:00am-5:00pm at [phone]. Please make sure we have the best [...] mins each). Referred to you by your post framer. Post-op week 10-12: Sternum is approximately 90-100% [...] if you are not a diabetic). Resear shows that sugar is a direct reflection [...] Follow the home care instructions in the [facility] Cardiac Surgery Navigation Guide. Please monitor your weight, blood pressure, heart rate and blood glucose daily (diabetics o nly) daily. Notify the [facility] Cardiothoracic Surgery office if: Any weight gain/loss [...] temporary, other changes are related to your alf health maintenance. Ultimately your post framer or [facility] care physician will determine what medications you should continue after you recover f rom surgery. Only take the medications on your Discharge Medication List when you leave the hospital. Review the list with your nurse prior to leaving the hospital and at the pharmacy when p icking up your medications. Cardiothoracic Surgery will manage prescriptions until you have seen your Blintze Roller a pr Primary Care Physician, in which they will [...] removed at your follow up visit with [facility] Cardiothoracic Surge ry - no later than [...] to the breast bone. Cardiac Rehabilitation: Your Blintze Roller will refer you to Outpatient Cardiac Rehabilitation. [...] and about 1 hour per visit. Your post framer will provide you with a r eferral [...] and in the same kind of clothes. Latiaic k weight gain can be a sign [...] factors as you can. Work with your [facility] care provider to identify your risk factors [...] pharmacist before buying any prescription or ov [id number]-[id number] medication. Managing Pain After Bypass Surgery Taking [...] tablets by | 60 | 0 | // | | | (TYLENOL) 500 mg | [...] Units | 6 mL | 0 | 02/21/20 | | | (LEVEMIR FLEXTOUCH) | under the skin every | | | 20 | | | 100 units/mL | 24 hours. | | | | | | injection (pen) | | | | | | + + + +---------+ + + | insulin lispro | Inject 10 Units | 9 mL | 0 | 02/21/20 | | [...] | | | | | Give 6 [id number] | | | | | | | to 300 Give 8 | | | | | | | to 350 Give | | | | [...] tablet by | 30 | 1 | //20 | | | succinate | mouth Daily. | tablet | | 20 | | | (TOPROL-XL) 100 mg | | | | | | | ER tablet | | | | | | + + + +---------+ + + | tamsulosin | Take 1 capsule by | 30 | 1 | 20 | | | (FLOMAX) 0.4 mg CAPS | mouth daily (after | capsule | | 20 | | | | breakfast). | | | | | + + + +---------+ + + | traMADol (ULTRAM) | Take 1-2 tablets by | 120 | 0 | 02/20/20 | | | 50 mg tablet | mouth every 6 hours | tablet | | 20 | | | | as needed for Pain. | | | | | + + + +---------+ + + documented as of this encounter Progress Notes Theresa Ham RN - 2020 10:58 AM PDTPatient [facility] via his friend Thien who will be transporting. Verbal and written instructions provided to pat ient, all questions addressed. Rx and all belongings gathered. IVs removed and bandages appl ied. Patient wheeled to car and discharged in stable condition. Report was called to RN at [facility]. 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 Ramin Rod, WHITNEY 2020 Gary Viveros MD - 7:59 AM PDT [facility] Service: Cardiology Progress Note Name of Electrical Supervisor: Gary Avery MD I have seen the [...] 70, normal axis, normal P wave and MI interval, inferior ST elevation. Last Echo: November [...] Status: Full Code Gary Avery MD 2020 Gary Viveros MD - 8:40 AM PDT [facility] Service: Cardiology Progress Note Name of Electrical Supervisor: Gary Avery MD I have seen the [...] 70, normal axis, normal P wave and MI interval, inferior ST elevation. Last Echo: November [...] Sanchez PA - 02/20/2020 6:11 AM PDT [facility] Daily Progress Note 02/20/2020 NAME/AGE/: Miles Ash Jr. 64 y.o. male (1955) ADMISSION DATE: 02/14/2020 HOSPITAL COURSE 6 Days Post-Op Hospital Day: 7 No notes on file Active Hospital Problems Diagnosis CAD in torres martinez artery Diabetes mellitus Resolved Hospital Problems No resolved problems to display. ASSESSMENT / PLAN 1. S/P CABG x 3 POD 6 2. On DAPT, statin and Bblocker. 3. Interval improvement in impulsiveness 4. Sternum stable, prevena removed and incision OK Disposition: - Anticipate discharge tomorrow to: [facility]. SUBJECTIVE Mr. Ash is showing incremental improvement. [...] 5% and sodium chloride 0.45% Stopped (02/17/20 1803) insulin regular Stopped (02/17/20 180) sodium chloride [...] M.D., Richard Sign Date/Time: 02/18/2020 6:44 AM [facility] [address], [address] [place] [address] Portions of this chart may have been created with [employer] voice recognition software. Occasi onal wrong-word or [...] education. Pt dozing in chair, awakens to voic e, agreeable to interview. Pt reports "rents [...] safe. Continue current diet as Rx'd. Consider Auctioneer Art consult to addres s pt's uncontrolled hyperglycemia before discharge as this can affect healing. Will f/u bef ore discharge to see if pt would like to review diet. Following with team. Nutritional Risk Required Follow Up: ( 02/25/2020) Olya Grover RD 02/19/2020 11:21 AM PDT Gary Viveros MD - 8:21 AM PDT [facility] Service: Cardiology Progress Note Name of Electrical Supervisor: Gary Avery MD I have seen the [...] 70, normal axis, normal P wave and MI interval, inferior ST elevation. Last Echo: November [...] Status: Full Code Gary Avery MD 02/19/2020 oJamal lombardi P A - 02/19/2020 7:35 AM PDT [facility] Daily Progress Note 02/19/2020 NAME/AGE/: Miles Ash Jr. 64 y.o. male (1955) ADMISSION DATE: 02/14/2020 HOSPITAL COURSE 5 Days Post-Op Hospital Day: 6 No notes on file Active Hospital Problems Diagnosis CAD in torres martinez artery Diabetes mellitus Resolved Hospital Problems No [...] 5% and sodium chloride 0.45% Stopped (02/17/20 1803) insulin regular Stopped (02/17/20 180) sodium chloride [...] M.D., Richard Sign Date/Time: 02/18/2020 6:44 AM [facility] [address] [place] [address] Portions of this chart may have been created with [employer] voice recognition software. Occasi onal wrong-word or sound-alike substitutions may have occurred due to the inherent orr itations of voice recognition software. Please read the chart carefully and recognize, using context, where these substitutions have occurred. Associated attestation - Cj Faustin MD - 02/19/2020 7:47 AM PDTPatient was seen, exami tash, labs, x-rays, treatment plan reviewed. Mental status clearing Home Carlos Contreras PT, DPT - 02/18/2020 2:11 PM PDTFormatting [...] might be different from the or iginal. [facility] Daily Progress Note 02/18/2020 NAME/AGE/: Miles Ash Jr. 64 y.o. male (1955) ADMISSION DATE: 02/14/2020 HOSPITAL COURSE 4 Days Post-Op Hospital Day: 5 No notes on file Active Hospital Problems Diagnosis CAD in torres martinez artery Diabetes mellitus Resolved Hospital Problems No [...] dry. Recent Labs 02/18/20 0428 02/17/20 0310 02/16/208 02/16/20 0308 WBC 11.34* 10.49 -- -- [...] 5% and sodium chloride 0.45% Stopped (02/17/20 1803) insulin regular Stopped (02/17/20 1803) sodium chloride 0.9% 30 mL/hr at 02/16/20 [...] Final Report Signed by: Cooper velazquez M.D., Alex Sign Date/Time: 02/18/2020 6:44 AM Xr Chest [...] pneumothorax . Final Report Signed by: Jagdish Rojas, Ofelia Sign Date/Time: 02/17/2020 6:38 AM [facility] [address] [place] [id number] Portions of this chart may have been created with [email or web address] voice recognition software. Occasi onal wrong-word or sound-alike substitutions may have occurred due to the inherent orr itations of voice recognition software. Please read the chart carefully and recognize, using context, where these substitutions have occurred. Aron Jasso RN - 02/18/2020 12:35 AM [id number] Care of pt assumed from RADHA Nixon. Report received. Pt asse ssment performed. VS stable. Wound vac in place. Bed in low, locked position with side rails up per protocol. Bed alarm broken (metal bent). RN asked BAIT DIGGER to place tab alarm under pt in bed (RN transfusing blood and placing soliman on other pts). Pt talks to himself when marina g to sleep. When asked about this, pt states he talks himself to sleep. amal Huertas PA - 02/17/2020 8:3 0 AM PDT [facility] Daily Progress Note 02/17/2020 NAME/AGE/: Miles Ash Jr. 64 y.o. male (1955) ADMISSION DATE: 02/14/2020 HOSPITAL COURSE 3 Days Post-Op Hospital Day: 4 No notes on file Active Hospital Problems Diagnosis CAD in torres martinez artery Diabetes mellitus Resolved Hospital Problems No [...] is warm and dry. Recent Labs 02/17/20 03102/16/208 02/16/20 0950 02/16/20 0308 02/15/20 0349 02/14/20 [...] chloride 0.45% 50 mL/hr at 02/16/20 0803 insulin regular 1.4 Units/hr (02/16/202) sodium chloride [...] Edgar James Sign Date/Time: 02/16/2020 6:25 AM [facility] [address] [place] [address] Portions of this chart may have been created with [email or web address] voice recognition software. Occasi onal wrong-word or sound-alike substitutions may have occurred due to the inherent orr itations of voice recognition software. Please read the chart carefully and recognize, using context, where these substitutions have occurred. 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 Ramin Rod, WHITNEY 02/16/2020 Associated attestation - Cj Faustin MD - 02/16/2020 8:45 AM PDTPatient was seen, exami tash, labs, x-rays, treatment plan reviewed. 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 Transition to SSI once stabilizes. - keyboarding clerk consult 3. Tobacco abuse - aids counselor on smoking cessation Disposition: Per cardiothoracic surgery Code Status: Full Code *Please bill 35 minutes of high complexity time spent evaluating the patient, reviewing the data and formulating a plan exclusive of all other procedures. KELLEY Middleton 02/16/2020 7:33 AM PDT Celio Frye PA - 02/15/2020 9:15 AM PDT [facility] Service: Cardiothoracic Surgery Progress Note ROOM: [id number] Hospital Day: LOS: 1 day Post-Op Day: [...] ORDER RECEIVED IN BLOOD BANK. 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 3. Tobacco abuse - aids counselor on smoking cessation Disposition: Per cardiothoracic surgery Code Status: Full Code *Please bill 35 minutes of critical care time spent evaluating the patient, reviewing the d kameron and formulating a plan exclusive of all other procedures. KELLEY Middleton 02/15/2020 7:11 AM PDT Trae Carmona Chaplain - 02/14/2020 10:21 AM PDTReceived the ON bypass pump report @ 10 13 Called Pt's friend Thien [phone] and gave him the ON bypass pump report. Thien express ed his concerns for his friend (Pt) and expressed appreciation for the update. rae Castillo Chaplain - 2019 7:23 AM PDTCVOR Referral. Pre Op visit. Pt appears comfortable and cooperative. CP pro vided assurance of emotional spiritual distress in light of Pt open heart surgery. Pt voiced that his friend Thien ([phone]) can be contacted for the updates. documented in this encounter H&P Notes Cj Faustin MD - 02/14/2020 6:46 AM [facility] Service: Cardiothoracic Surgery Pre-Operative History & Physical [...] COR ANGIO; Surgeon: Gary Avery MD; Location: [facility] CV LAB CARDIAC CATHERIZATION N/A 11/09/2019 Procedure: CV LHC; Surgeon: Gary Avery MD; Location: [facility] CV LAB CARDIAC CATHERIZATION N/A 11/09/2019 Procedure: CV Stent; Surgeon: Gary Avery MD; Location: [facility] CV LAB TONSILLECTOMY No Known Allergies [...] file Gets together: Not on file Attends nondenominational service: Not on file Active member of [...] . A BLN NC QNTM APX MR [id number] was used for post-stent dilation. 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 3. Tobacco abuse - aids counselor on smoking cessation once able to participate. Disposition: Per cardiothoracic surgery Code Status: Full Code *Please bill 45 minutes of critical care time spent evaluating the patient, reviewing the d kameron and formulating a plan exclusive of all other procedures. KELLEY Middleton 02/14/2020 4:43 PM PDT documented in this encounter Miscellaneous Notes Plan of Care - Theresa Ham RN - 2020 11:18 AM PDT Problem: [...] Plan Planned Disposition: Swing bed Planned Destination: [place] [facility] Swing [facility] of Choice: yes Facility Information: Address: [facility] [place] [facility] [place] [address] Community Care Provider: Oracio Schwartz DO Patient/Family [...] might be different from the o riginal. HALFWAY FACILITY TRANSFER ORDERS Patient Name: Miles Ash Jr. Patient : 1955 Gender: male Date of Admission: 02/14/2020 Date of Discharge: 2020 Admitting Provider: Cj Faustin MD Discharging Provider: WHITNEY Rawls PCP: [facility] CODE STATUS: [x] Attempt CPR [] Do not resuscitate If patient is pulseless and not breathing, RN/FLOATMAN may pronounce . Advanced Directives included: [x] [...] lb 1.6 oz) Admitting Diagnosis: CAD in torres martinez artery Patient Active Problem List Diagnosis ST elevation myocardial infarction (STEMI) of inferior wall Coronary artery disease involving torres martinez coronary artery of torres martinez heart without angina pectoris CAD in torres martinez artery Diabetes mellitus No Known Allergies Most Recent Immunizations Administered Date(s) Administered INFLUENZA PF 4Y OR >,QUAD DERIVED FROM TISS-CULT 03/03/2018 INFLUENZA PF QUAD(PED/ADOL/ADULT),PSKT or VIAL 03/20/2017 Diet: [x] As tolerated ELECTRIC DISTRIBUTION CHECKER may upgrade or downgrade diet as condition [...] [] JT [] NGT [] Formula type: (Organ Fixer may change/substitute if indicated). [] Continuous Rate: [...] [x] OT Evaluation & Management for: [] ELECTRIC DISTRIBUTION CHECKER Evaluation &Management for: [] Other: Wound/Skin Care: [...] Needed/Frequency Diagnosis/Indication Follow up appointments and consultations: Dr. Date/Time: Dr. Date/Time I have advised this [...] 1 tablet (81 mg total) Daily By: Gary Avery MD Quant: 90 tablet atorvaSTATin 80 MG tablet Take 1 tablet (80 mg total) by mouth nightly aka: LIPITOR By: Gary Avery MD Quant: 90 tablet clopidogrel 75 mg tablet Take 1 tablet (75 mg total) by mouth Daily aka: PLAVIX By: Gary Avery MD Quant: 90 tablet lisinopril 10 mg tablet Take 1 tablet (10 mg total) by mouth Daily aka: IVWILLY ZESTRIL By: Gary Avery MD Quant: 90 tablet Discontinued Medications nitroglycerin 0.4 mg SL tablet aka: GOLD Mckeon, WHITNEY Rawls, certify that post hospital shelter care is medically necess leny on a continuing basis for any of the conditions for which he/she received care during th is hospitalization. Check one: [x] Skilled [] Intermediate Additional Orders/Instructions: Physician's signature: Celio Rod PA-C 2020 8:45 AM PDT [facility] USE ONLY: [] Admitting orders verbally reviewed with Admitting Physician, modified where appropriate, and approved. Verbal Order from Date: Time: _ RN name: RN signature: [] Admitting orders reviewed, modified where appropriate, and approved. Physician's signature: Date: Time: lan of [place] - Chema Frias, PT - 2020 7:38 AM PDT Physical Therapy Treatment Note Recommended discharge disposition: shelter facility Post discharge physical therapy recommendation: minimum [...] Documentation: sit to/from stand Sit-Stand, [facility] [place]: contact guard assist Stand-Sit, [facility] [place]: contact guard assist [id number], Assistive Device: 4 wheeled walker (4WW) Gait Level of [place]: stand by assist Assistive Device: 4 wheeled walker (4WW) Distance (feet): 400 Gait Deviations: aileen decreased, step length decreased Safety Issues: balance decreased during turns Goals Reflects last filed data and may be from multiple contributors. All Bed Mobility Goal Most Recent Value LTG [place] Level minimum assist (75% patient effort) at 02/15/2020 1100 All Transfers Goal Most Recent Value LTG [place] Level stand by assist at 02/15/2020 1100 Gait Goal Most Recent Value LTG [place] Level stand by assist at 02/15/2020 1100 LTG Assistive Device 4 wheeled walker (4WW) at 02/15/2020 1100 LTG Distance (feet) 300 at 02/15/2020 1100 PT Time Calculation Individual Start Time: 07 Individual Stop Time: 0803 Individual Total Time: 25 PT Total Treatment Time: 25 lan of Care - Sandy Larson RN - 2020 12:42 AM PDT Problem: Adult Inpatient Plan of Care Goal: Plan of Care Review Outcome: Ongoing, progressing Flowsheets (Taken 2020 0040) Plan of Care Reviewed With: patient Goal: [...] Pain controlled with scheduled Tylenol lan of Care - Mehrdad Cohen MSW - 02/20/2020 4:27 PM PDTDISCHARGE PLANNING DRENCHER p/c with Jasmin at [facility], unable to accept. DRENCHER P/c with Janeth at [facility], will accept Pt tomorrow on WednesdayFeb 20. INSTRUCTIONS [facility] [address] [place] [address] Facility: [phone], Janeth Peters (Admissions) [phone] RN to RN Report - [phone] Physician to Physician Report - Call Oracio Schwartz DO [phone] cell. Transport: Pt friend Thien Sorensen ([phone] cell) will seed cone picker Pt at 10:00am Wednesday in [facility] - Leave 9RP - Call It Specialist 9:45am. DCP: [facility] LAURA AVENDAÑO [phone] cell lan of Care - Carlos Beltran, PT, DPT - 02/20/2020 12:36 PM PDTFormatting of this note might be different fr om the original. Physical Therapy Treatment Note Recommended discharge disposition: shelter facility Post discharge physical therapy recommendation: minimum [...] Bed Mobility Supine to Sit, Level of [place]: moderate assist (50% patient effort) Transfers Sit-Stand, Level of [place]: stand by assist, contact guard assist Gait Level of [place]: stand by assist, contact guard assist Assistive [...] Bed Mobility Goal Most Recent Value LTG [place] Level minimum assist (75% patient effort) at 02/15/2020 1100 All Transfers Goal Most Recent Value LTG [place] Level stand by assist at 02/15/2020 1100 Gait Goal Most Recent Value LTG [place] Level stand by assist at 02/15/2020 1100 LTG Assistive Device 4 wheeled walker (4WW) at 02/15/2020 1100 LTG Distance (feet) 300 at 02/15/2020 1100 lan of Care - Carlos Ramírez PT, DPT - 02/20/2020 8:44 AM PDTFormatting of this note might be di fferent from the original. Physical Therapy Treatment Note Recommended discharge disposition: shelter facility Post discharge physical therapy recommendation: minimum [...] oriented x 4 Transfers Sit-Stand, Level of [place]: minimal assist (75% patient effort) Gait Level of [place]: contact guard assist, minimal assist (75% patient effort) Assistive Device: 4 wheeled walker (4WW) Distance (feet): 250 Gait Deviations: aileen decreased, step length decreased Safety Issues: balance decreased during turns Goals Reflects last filed data and may be from multiple contributors. All Bed Mobility Goal Most Recent Value LTG [place] Level minimum assist (75% patient effort) at 02/15/2020 1100 All Transfers Goal Most Recent Value LTG [place] Level stand by assist at 02/15/2020 1100 Gait Goal Most Recent Value LTG [place] Level stand by assist at 02/15/2020 1100 [...] Jul or adequate pain control. lan of Care - Sandy Martin RN - 02/20/2020 1:33 [...] Pain controlled with scheduled Tylenol lan of Care - Mehrdad Cohen MSW - 02/19/2020 4:59 PM PDTDISCHARGE PLANNING DRENCHER met with Pt and discussed discharge planning, states preference for (A) [facility] [place], (B) [facility] [place]. DCP: Pending at [facility] [place] LAURA AVENDAÑO [phone] cell lan of Care - Pallavi Pringle PTA - 02/19/2020 1:00 PM PDTFormatting of this note might b e different from the original. Physical Therapy Treatment Note Recommended discharge disposition: shelter facility Post discharge physical therapy recommendation: minimum [...] Documentation: sit to/from stand Sit-Stand, Level of [place]: minimal assist (75% patient effort) Stand-Sit, Level of [place]: minimal assist (75% patient effort) Ldj-Ccuxl-Ure, Assistive Device: 4 wheeled walker (4WW), bariatric Gait Level of [place]: minimal assist (75% patient effort) Assistive Device: [...] Bed Mobility Goal Most Recent Value LTG [place] Level minimum assist (75% patient effort) at 02/15/2020 1100 All Transfers Goal Most Recent Value LTG [place] Level stand by assist at 02/15/2020 1100 Gait Goal Most Recent Value LTG [place] Level stand by assist at 02/15/2020 1100 [...] Physical Therapy Treatment Note Recommended discharge disposition: shelter facility Post discharge physical therapy recommendation: minimum [...] Documentation: sit to/from stand Sit-Stand, Level of [place]: moderate assist (50% patient effort), minimal assist (75% patient effort) Stand-Sit, Level of [place]: moderate assist (50% patient effort), minimal assist (75% patient effort) Zyv-Kzner-Ibl, Assistive Device: other (see comments), gait belt(Heart pillow ) Impairments: strength decreased, impaired balance, pain Gait Level of [place]: minimal assist (75% patient effort), moderate assist [...] Bed Mobility Goal Most Recent Value LTG [place] Level minimum assist (75% patient effort) at 02/15/2020 1100 All Transfers Goal Most Recent Value LTG [place] Level stand by assist at 02/15/2020 1100 Gait Goal Most Recent Value LTG [place] Level stand by assist at 02/15/2020 1100 [...] Jul or adequate pain control. lan of Care - Aron Valladares RN - 02/19/2020 6:22 [...] events overnight. Chart check complete. lan of Care - Amita Crespo OTR/Cody - 02/18/2020 1:36 PM PDTFo rmatting [...] him and 2 sons that live in [place]. patient also reported that he has a [...] accuracy, has 2 boys both live in [place] Precautions Precaution Comment: wound vac Precautions/Limitations: falls, [...] patient urinated seated EOB Toileting, Level of [place]: maximal assist (25% patient effort) Toileting Assess/Train, Position: sitting Toileting Impairments: strength decreased, impaired balance Bed Mobility Roll Right, Level of [place]: maximal assist (25% patient effort) Sit to Supine, Level of [place]: maximal assist (25% patient effort), 2 person assist required Safety Issues: decreased use of arms for pushing/pulling, decreased use of legs for bridgin g/pushing Impairments: strength decreased, impaired balance Transfers Sit-Stand, Level of [place]: moderate assist (50% patient effort), 2 person assist req uired Stand-Sit, Level of [place]: moderate assist (50% patient effort), 2 person assist req uired Lhk-Dyspi-Fgo, Assistive Device: gait belt(4 wheel platform walker) [...] LTG Status new at 02/18/2020 1336 LTG [place] Level modified independent at 02/18/2020 1336 LTG Position sitting, edge of bed at 02/18/2020 1336 LTG Adaptive Equipment none at 02/18/2020 1336 UB Dressing Goal Most Recent Value LTG Status new at 02/18/2020 1336 LTG [place] Level modified independent at 02/18/2020 1336 LTG Adaptive Equipment none at 02/18/2020 1336 lan of Care - Carlos Kahn, PT, DPT - 02/18/2020 10:45 AM PDTFormatting of this note might be differe nt from the original. Physical Therapy Treatment Note Recommended discharge disposition: shelter facility Post discharge physical therapy recommendation: minimum [...] he "just [facility]" rather than attempting to mobilize further. He required 4-5 standing rest breaks due to fatigue. VSS throughout. Cognitive Assessment Cognitive Comments: irritable Mood/Behavior: labile Orientation: oriented x 4 Bed Mobility Supine to Sit, Level of [place]: maximal assist (25% patient effort) Transfers Sit-Stand, Level of [place]: moderate assist (50% patient effort) Gait Level of [place]: minimal assist (75% patient effort), moderate assist [...] Bed Mobility Goal Most Recent Value LTG [place] Level minimum assist (75% patient effort) at 02/15/2020 1100 All Transfers Goal Most Recent Value LTG [place] Level stand by assist at 02/15/2020 1100 Gait Goal Most Recent Value LTG [place] Level stand by assist at 02/15/2020 1100 LTG Assistive Device 4 wheeled walker (4WW) at 02/15/2020 1100 LTG Distance (feet) 300 at 02/15/2020 1100 lan of Care - Nya Mckay RN - 02/18/2020 8:29 AM PDTPatient A&O [...] Jul or adequate pain control. lan of Care - Aron Valladares RN - 02/18/2020 5:42 AM PDT Problem: [...] tab alarm under pt in bed to BAIT DIGGER (RN needed to perform blood transfusion and [...] not observe his sternal pre cautions well). BAIT DIGGER states she forgot to place tab alarm. But RN should have double-checke d that task had been performed. Full VS performed. HR 114 (returned to 80's shortly thereaf ter), SBP 140's, SpO2 96%, RR 18. Pt answers LOC questions correctly. Sitter requested. No ne available. Telesitter requested, but none available. Tab alarm placed, BAIT DIGGER monitoring pt from station outside pt window. [...] independently with ndiaye secretions noted. lan of Astrid Dave RN - 02/17/2020 9:33 AM PDTCare Management [...] Information Family Contact Information: Name: Valerie . dc Needs Assessment Current Outpt/Agency/Support Groups: none Services Anticipated at Discharge: shelter facility Equipment Used at Home: none Initial Plan Anticipated Discharge Disposition: shelter facility Electronically signed: Astrid Maharaj RN 02/17/2020 9:33 AM PDT lan of Arvind North PT - 02/17/2020 8:18 AM PDT Physical Therapy Treatment Note Recommended discharge disposition: shelter facility Post discharge physical therapy recommendation: will [...] 90's but desats to 85 with activity. SHOSHONE-PAIUTE assistance for sternal precations th ough he [...] Speech: spontaneous, logical Transfers Sit-Stand, Level of [place]: moderate assist (50% patient effort) Stand-Sit, Level of [place]: moderate assist (50% patient effort) Cpu-Psldi-Ycx, Assistive Device: gait belt Gait Gait Comments: Forward flexed rounded shoulders and forward head posture, pt unable to obta in improved posture Level of [place]: moderate assist (50% patient effort) Assistive Device: [...] Bed Mobility Goal Most Recent Value LTG [place] Level minimum assist (75% patient effort) at 02/15/2020 1100 All Transfers Goal Most Recent Value LTG [place] Level stand by assist at 02/15/2020 1100 Gait Goal Most Recent Value LTG [place] Level stand by assist at 02/15/2020 1100 LTG Assistive Device 4 wheeled walker (4WW) at 02/15/2020 1100 LTG Distance (feet) 300 at 02/15/2020 1100 PT Time Calculation Individual Start Time: 737 Individual Stop Time: 817 Individual Total Time: 40 PT Total Treatment Time: 40 lan of [facility] - Edmond Galindo RN - 02/16/2020 9:08 [...] Physical Therapy Treatment Note Recommended discharge disposition: shelter facility Post discharge physical therapy recommendation: will [...] also noted with pt requiring compl ete jvco-[id number]-[id number] assistance for sternal precautions. Able to complete [...] supine to/from sit Roll Right, Level of [place]: maximal assist (25% patient effort) Sit to Supine, Level of [place]: maximal assist (25% patient effort) Safety Issues: decreased use of arms for pushing/pulling, decreased use of legs for bridgin g/pushing Impairments: strength decreased, impaired balance Transfers Sit-Stand, Level of [place]: moderate assist (50% patient effort) Stand-Sit, Level of [place]: moderate assist (50% patient effort) Ajv-Uazqb-Xjn, Assistive Device: gait belt Gait Gait Comments: forward flexed, shuffled, symmetrical steps noted Level of [place]: minimal assist (75% patient effort) Assistive Device: gait belt, other (see comments) Distance (feet): 6 Goals Reflects last filed data and may be from multiple contributors. All Bed Mobility Goal Most Recent Value LTG [place] Level minimum assist (75% patient effort) at 02/15/2020 1100 All Transfers Goal Most Recent Value LTG [place] Level stand by assist at 02/15/2020 1100 Gait Goal Most Recent Value LTG [place] Level stand by assist at 02/15/2020 1100 LTG Assistive Device 4 wheeled walker (4WW) at 02/15/2020 1100 LTG Distance (feet) 300 at 02/15/2020 1100 PT Time Calculation Individual Start Time: 1637 Individual Stop Time: 1707 Individual Total Time: 30 PT Total Treatment Time: 30 lan of Care - Wisam An, PT - 02/16/2020 11:00 AM PDT Physical Therapy Treatment Note Recommended discharge disposition: shelter facility Post discharge physical therapy recommendation: will [...] opens eyes spontaneously Transfers Sit-Stand, Level of [place]: moderate assist (50% patient effort) Stand-Sit, Level of [place]: moderate assist (50% patient effort) Zwd-Gizey-Fal, Assistive Device: gait belt Impairments: strength decreased, impaired balance, pain Gait Gait Comments: Unable to progress today, limited by pain Goals Reflects last filed data and may be from multiple contributors. All Bed Mobility Goal Most Recent Value LTG [place] Level minimum assist (75% patient effort) at 02/15/2020 1100 All Transfers Goal Most Recent Value LTG [place] Level stand by assist at 02/15/2020 1100 Gait Goal Most Recent Value LTG [place] Level stand by assist at 02/15/2020 1100 LTG Assistive Device 4 wheeled walker (4WW) at 02/15/2020 1100 LTG Distance (feet) 300 at 02/15/2020 1100 PT Time Calculation Individual Start Time: 1005 Individual Stop Time: 1048 Individual Total Time: 43 PT Total Treatment Time: 43 lan of [facility] Edmond sutherland RN - 02/15/2020 11:47 PM PDT Problem: [...] Galindo RN 11 :47 PM PDTPlan of Care - Anil Wisam R, PT - 02/15/2020 5:15 PM PDT Physical Therapy Treatment Note Recommended discharge disposition: shelter facility Post discharge physical therapy recommendation: will [...] opens eyes spontaneously Transfers Sit-Stand, Level of [place]: minimal assist (75% patient effort), moderate assist (50% patient effort) Stand-Sit, Level of [place]: minimal assist (75% patient effort) Fmp-Aicxs-Jbp, Assistive Device: gait belt Impairments: strength decreased, impaired balance, pain Gait Gait Comments: very limited by pain, forward flexed Level of [place]: minimal assist (75% patient effort) Assistive Device: gait belt, other (see comments) Distance (feet): 2x2 Goals Reflects last filed data and may be from multiple contributors. All Bed Mobility Goal Most Recent Value LTG [place] Level minimum assist (75% patient effort) at 02/15/2020 1100 All Transfers Goal Most Recent Value LTG [place] Level stand by assist at 02/15/2020 1100 Gait Goal Most Recent Value LTG [place] Level stand by assist at 02/15/2020 1100 [...] is being recommended and pt lives in [facility], I will send a referral to Morena at [facility] which is SNF closest to pt's isa e. Will complete assessment tomorrow.Electronically signed by LAURA Jeff at 0 1:36 PM PDTPlan of Wisam Boo, PT - 02/15/2020 12:28 PM PDTFormatting of t his note might be different from the original. Physical Therapy Initial Evaluation Note Recommended discharge disposition: shelter facility Post discharge physical therapy recommendation: will [...] able to arise and stand with the HPFW. Needs only 1 person assist for mobility, [...] Documentation: sit to/from stand Sit-Stand, Level of [place]: minimal assist (75% patient effort) Stand-Sit, Level of [place]: minimal assist (75% patient effort) Syv-Vpnfs-Ppm, Assistive Device: gait belt Impairments: strength decreased, impaired balance, pain Gait Gait Comments: very limited by pain Level of [place]: minimal assist (75% patient effort) Assistive Device: gait belt, other (see comments)(hpfw) Distance (feet): 3 Muscle Tone Assessment Muscle [...] Bed Mobility Goal Most Recent Value LTG [place] Level minimum assist (75% patient effort) at 02/15/2020 1100 All Transfers Goal Most Recent Value LTG [place] Level stand by assist at 02/15/2020 1100 Gait Goal Most Recent Value LTG [place] Level stand by assist at 02/15/2020 1100 LTG Assistive Device 4 wheeled walker (4WW) at 02/15/2020 1100 LTG Distance (feet) 300 at 02/15/2020 1100 lan of Care - Niurka Vidal MSW - 02/15/2020 8:51 AM PDTLeft message for SCOTT Padilla ([phone]) request ing a return call to complete [...] Cj Faustin MD - 02/14/2020 12:06 PM [facility] OPERATIVE REPORT CJ FAUSTIN MD Patient: MILES ASH Admitting: CJ FAUSTIN MR #: [id number] LOC: PT TYPE: Adm Date: 02/14/2020 : [...] Endovascular vein harvesting. SURGEON: Cj Faustin MD. BUSINESS CASE ANALYST: ANTHONY Arevalo. ANESTHESIOLOGIST: Monica Harley MD. ANESTHESIA: [...] 02/14/2020 12:06:34 Transcribed on 02/14/2020 18:41:26 by vn job# [id number] Confirmation #: [id number] cc: WING AVERY MD documented in this enco unter Plan of Treatment + +------+--------+ + + | Name | Type | Priori | Associated Diagnoses | Order Schedule | | | | ty | | | + +------+--------+ + + | CBC no Differential | Lab | Routin | CAD in [place] | Expected: | | | | e | artery | 03/04/2020, Expires: | | | | | | 02/20/2021 | + +------+--------+ + + | Comprehensive | Lab | Routin | CAD in [place] | Expected: | | Metabolic Panel | [...] | + +--------+ + + + | KENY FONSECA | Routin | 02/14/2020 | | Results [...] +--------+ + + + | POC RIGOBERTO BUSTILLOAlejandro, | Routin | 02/14/2020 | | Results for this | | ARTERIAL | e | 9:25 AM | | procedure are in the | | | | PDT | | results section. | + +--------+ + + + | LONNY RIGOBERTO BUSTILLOAlejandro, | Routin | 02/14/2020 | | Results [...] ARTERY | | 02/14/2020 | CAD in [place] | | | BYPASS GRAFT | | [...] Procedure Note | + + | Aidan, [id number] - 2020 7:32 AM PDT | | [...] | | | POC | performed at [facility];[address] | | LABORATORY | | | | [address];[place], [place] | | | | | | [address] | | | | + + + + + + + + | Specimen | + + | | + + + + + + + | Performing | Address | City/State/Zipcode | Phone Number | | Organization | | | | + + + + + | [facility] | [address] | [place] [address] | [phone] | + + + + + Magnesium (2020 4:42 AM PDT) + + + + + + | Component | Value | Ref Range | Performed | Pathologist | | | | | At | Signature | + + + + + + | Magnesium | 2.0Comment: Testing | 1.7 - 2.4 mg/dL | KR | | | | performed at [facility];[address] | | LABORATORY | | | | [address];[place], [place] | | | | | | [address] | | | | + + + + + + + + | Specimen | + + | Blood | + + + + + + + | Performing | Address | City/State/Zipcode | Phone Number | | Organization | | | | + + + + + | [facility] | [address] | [place] [address] | [phone] | + + + + + CBC with Differential (2020 4:42 AM PDT) + + + + + + | Component | Value | Ref Range | Performed | Pathologist | | | | | At | Signature | + + + + + + | WBC | 9.24 | 3.80 - 11.00 | KRLEONILA | | | | | K/uL | [...] 0.06Comment: Testing | 0.00 - 0.10 | SAM | | | Absolute | performed at [facility];[address] | K/uL | LABORATORY | | | | [address];[place] | | | | | | [address] | | | | + + + + + + + + | Specimen | + + | Blood | + + + + + + + | Performing | Address | City/State/Zipcode | Phone Number | | Organization | | | | + + + + + | [facility] | [address] | [place] [address] | [phone] | + + + + + Basic [...] | | | | | performed at [facility];[address] | | | | | | [address];[place] | | | | | | [address] | | | | + + + + + + + + | Specimen | + + | Blood | + + + + + + + | Performing | Address | City/State/Zipcode | Phone Number | | Organization | | | | + + + + + | [facility] | [address] | [place] [address] | [phone] | + + + + + POC [...] | | | POC | performed at [facility];[address] | | LABORATORY | | | | [address];[place] | | | | | | [address] | | | | + + + + + + + + | Specimen | + + | | + + + + + + + | Performing | Address | City/State/Zipcode | Phone Number | | Organization | | | | + + + + + | [facility] | [address] | [place] [address] | [phone] | + + + + + Coronavirus [...] SARS-CoV-2, | NEGATIVEComment: This | NEG | [facility] | | | NAAT | test was [...] | | | | | performed at [facility] | | | | | | [address] [facility];[place], [place] | | | | | | [address] | | | | + + + + + + + + | Specimen | + + | Tissue - Entire | | nasopharynx (body | | structure) | + + + + + + + | Performing | Address | City/State/Zipcode | Phone Number | | Organization | | | | + + + + + | [facility] | [address] | [place] [address] | [phone] | + + + + + POC [...] | | | POC | performed at [facility];[address] | | LABORATORY | | | | [address];[place] | | | | | | [address] | | | | + + + + + + + + | Specimen | + + | | + + + + + + + | Performing | Address | City/State/Zipcode | Phone Number | | Organization | | | | + + + + + | [facility] | [address] | [place] [address] | [phone] | + + + + + POC Glucose (02/20/2020 1:54 PM PDT) + + + + + + | Component | Value | Ref Range | Performed | Pathologist | | | | | At | Signature | + + + + + + | Glucose, | 203 (H)Comment: Testing | 65 - 99 mg/dL | [facility] | | | POC | performed at [facility];[address] | | LABORATORY | | | | [address];[place] | | | | | | [address] | | | | + + + + + + + + | Specimen | + + | | + + + + + + + | Performing | Address | City/State/Zipcode | Phone Number | | Organization | | | | + + + + + | [facility] | [address] | [place] [address] | [phone] | + + + + + Potassium (02/20/2020 12:27 PM PDT) + + + + + + | Component | Value | Ref Range | Performed | Pathologist | | | | | At | Signature | + + + + + + | K | 3.7Comment: Testing | 3.5 - 4.9 | [facility] | | | | performed at [facility];[address] | mmol/L | LABORATORY | | | | [address];[place], [place] | | | | | | [address] | | | | + + + + + + + + | Specimen | + + | Blood | + + + + + + + | Performing | Address | City/State/Zipcode | Phone Number | | Organization | | | | + + + + + | [facility] | [address] | [place] [address] | [phone] | + + + + + POC [...] | | | POC | performed at [facility];[address] | | LABORATORY | | | | [address];[place] | | | | | | [address] | | | | + + + + + + + + | Specimen | + + | | + + + + + + + | Performing | Address | City/State/Zipcode | Phone Number | | Organization | | | | + + + + + | [facility] | [address] | [place] [address] | [phone] | + + + + + XR [...] Procedure Note | + + | Aidan, [id number] - 02/20/2020 6:36 AM PDT | | [...] [facility] | | | | performed at [facility];[address] | | LABORATORY | | | | [address];[place] | | | | | | [address] | | | | + + + + + + + + | Specimen | + + | Blood | + + + + + + + | Performing | Address | City/State/Zipcode | Phone Number | | Organization | | | | + + + + + | [facility] | [address] | [place] [address] | [phone] | + + + + + CBC [...] | | | | | performed at [facility];[address] | | | | | | [address];[place] | | | | | | [address] | | | | + + + + + + + + | Specimen | + + | Blood | + + + + + + + | Performing | Address | City/State/Zipcode | Phone Number | | Organization | | | | + + + + + | [facility] | [address] | [place] [address] | [phone] | + + + + + Basic [...] | 8.7 | 8.5 - 10.5 | [facility] | | | | | mg/dL | LABORATORY | | + + + + + + | Estimated | >60Comment: GFR <60: | >60 | [facility] | | | GFR | CHRONIC [...] | | | | | | MDRD NVMS traceable | | | | | | equation.Testing | | | | | | performed at [facility] | | | | | | [facility];[place], [place] | | | | | | [address] | | | | + + + + + + + + | Specimen | + + | Blood | + + + + + + + | Performing | Address | City/State/Zipcode | Phone Number | | Organization | | | | + + + + + | [facility] | [address] | [place] [address] | [phone] | + + + + + POC Glucose (02/19/2020 8:52 PM PDT) + + + + + + | Component | Value | Ref Range | Performed | Pathologist | | | | | At | Signature | + + + + + + | Glucose, | 154 (H)Comment: Testing | 65 - 99 mg/dL | [facility] | | | POC | performed at [facility];[address] | | LABORATORY | | | | [address];[place], [place] | | | | | | [address] | | | | + + + + + + + + | Specimen | + + | | + + + + + + + | Performing | Address | City/State/Zipcode | Phone Number | | Organization | | | | + + + + + | [facility] | [address] | [place] [address] | [phone] | + + + + + POC [...] | | | POC | performed at [facility];[address] | | LABORATORY | | | | [address];[place] | | | | | | [address] | | | | + + + + + + + + | Specimen | + + | | + + + + + + + | Performing | Address | City/State/Zipcode | Phone Number | | Organization | | | | + + + + + | [facility] | [address] | [place] [address] | [phone] | + + + + + Potassium (02/19/2020 12:59 PM PDT) + + + + + + | Component | Value | Ref Range | Performed | Pathologist | | | | | At | Signature | + + + + + + | K | 3.5Comment: Testing | 3.5 - 4.9 | [facility] | | | | performed at [facility];[address] | mmol/L | LABORATORY | | | | [address];[place] | | | | | | [address] | | | | + + + + + + + + | Specimen | + + | Blood | + + + + + + + | Performing | Address | City/State/Zipcode | Phone Number | | Organization | | | | + + + + + | [facility] | [address] | [place] [address] | [phone] | + + + + + POC [...] | | | POC | performed at [facility];[address] | | LABORATORY | | | | [address];[place] | | | | | | [address] | | | | + + + + + + + + | Specimen | + + | | + + + + + + + | Performing | Address | City/State/Zipcode | Phone Number | | Organization | | | | + + + + + | [facility] | [address] | [place] [address] | [phone] | + + + + + POC [...] | | | POC | performed at [facility];[address] | | LABORATORY | | | | [address];[place], [place] | | | | | | [address] | | | | + + + + + + + + | Specimen | + + | | + + + + + + + | Performing | Address | City/State/Zipcode | Phone Number | | Organization | | | | + + + + + | [facility] | [address] | [place] [address] | [phone] | + + + + + Magnesium (02/19/2020 6:06 AM PDT) + + + + + + | Component | Value | Ref Range | Performed | Pathologist | | | | | At | Signature | + + + + + + | Magnesium | 1.9Comment: Testing | 1.7 - 2.4 mg/dL | [facility] | | | | performed at [facility];[address] | | LABORATORY | | | | [address];[place] | | | | | | [address] | | | | + + + + + + + + | Specimen | + + | Blood | + + + + + + + | Performing | Address | City/State/Zipcode | Phone Number | | Organization | | | | + + + + + | [facility] | [address] | [place] [address] | [phone] | + + + + + CBC [...] | | | Absolute | performed at [facility], [address] | K/uL | LABORATORY | | | | [facility], | | | | | | [place] [address] | | | | + + + + + + + + | Specimen | + + | Blood | + + + + + + + | Performing | Address | City/State/Zipcode | Phone Number | | Organization | | | | + + + + + | [facility] | [address] | [place] [address] | [phone] | + + + + + Basic [...] | >60Comment: GFR <60: | >60 | [facility] | | | GFR | CHRONIC [...] | | | | | | MDRD [facility] traceable | | | | | | equation.Testing | | | | | | performed at [facility], [address] | | | | | | [facility], | | | | | | [place] [address] | | | | + + + + + + + + | Specimen | + + | Blood | + + + + + + + | Performing | Address | City/State/Zipcode | Phone Number | | Organization | | | | + + + + + | [facility] | [address] | [place] [address] | [phone] | + + + + + XR [...] Procedure Note | + + | Aidan, [id number] - 02/19/2020 6:23 AM PDT | | [...] Testing | 65 - 99 mg/dL | [facility] | | | POC | performed at [facility];[address] | | LABORATORY | | | | [address];[place] | | | | | | [address] | | | | + + + + + + + + | Specimen | + + | | + + + + + + + | Performing | Address | City/State/Zipcode | Phone Number | | Organization | | | | + + + + + | [facility] | [address] | [place] [address] | [phone] | + + + + + POC [...] | | | POC | performed at [facility];[address] | | LABORATORY | | | | [address];[place], [place] | | | | | | [address] | | | | + + + + + + + + | Specimen | + + | | + + + + + + + | Performing | Address | City/State/Zipcode | Phone Number | | Organization | | | | + + + + + | [facility] | [address] | [place] [address] | [phone] | + + + + + POC [...] | | | POC | performed at [facility];[address] | | LABORATORY | | | | [address];[place] | | | | | | [address] | | | | + + + + + + + + | Specimen | + + | | + + + + + + + | Performing | Address | City/State/Zipcode | Phone Number | | Organization | | | | + + + + + | [facility] | [address] | [place] [address] | [phone] | + + + + + POC Glucose (02/18/2020 7:10 AM PDT) + + + + + + | Component | Value | Ref Range | Performed | Pathologist | | | | | At | Signature | + + + + + + | Glucose, | 133 (H)Comment: Testing | 65 - 99 mg/dL | [facility] | | | POC | performed at [facility];[address] | | LABORATORY | | | | [address];[place], [place] | | | | | | [address] | | | | + + + + + + + + | Specimen | + + | | + + + + + + + | Performing | Address | City/State/Zipcode | Phone Number | | Organization | | | | + + + + + | [facility] | [address] | [place] [address] | [phone] | + + + + + XR [...] Procedure Note | + + | Aidan, [id number] - 02/18/2020 6:47 AM PDT | | [...] 0.03Comment: Testing | 0.00 - 0.10 | [facility] | | | Absolute | performed at [facility];[address] | K/uL | LABORATORY | | | | [address];[place] | | | | | | [address] | | | | + + + + + + + + | Specimen | + + | | + + + + + + + | Performing | Address | City/State/Zipcode | Phone Number | | Organization | | | | + + + + + | [facility] | [address] | [place] [address] | [phone] | + + + + + Basic [...] | | | | | performed at [facility];[address] | | | | | | [address];[place] | | | | | | [address] | | | | + + + + + + + + | Specimen | + + | | + + + + + + + | Performing | Address | City/State/Zipcode | Phone Number | | Organization | | | | + + + + + | [facility] | [address] | [place] [address] | [phone] | + + + + + Magnesium (02/18/2020 4:28 AM PDT) + + + + + + | Component | Value | Ref Range | Performed | Pathologist | | | | | At | Signature | + + + + + + | Magnesium | 1.9Comment: Testing | 1.7 - 2.4 mg/dL | [facility] | | | | performed at [facility];[address] | | LABORATORY | | | | [address];[place] | | | | | | [address] | | | | + + + + + + + + | Specimen | + + | Blood | + + + + + + + | Performing | Address | City/State/Zipcode | Phone Number | | Organization | | | | + + + + + | [facility] | [address] | [place] [address] | [phone] | + + + + + POC Glucose (02/17/2020 9:25 PM PDT) + + + + + + | Component | Value | Ref Range | Performed | Pathologist | | | | | At | Signature | + + + + + + | Glucose, | 221 (H)Comment: Testing | 65 - 99 mg/dL | [facility] | | | POC | performed at [facility];[address] | | LABORATORY | | | | [address];[place] | | | | | | [address] | | | | + + + + + + + + | Specimen | + + | | + + + + + + + | Performing | Address | City/State/Zipcode | Phone Number | | Organization | | | | + + + + + | [facility] | [address] | [place] [address] | [phone] | + + + + + POC Glucose (02/17/2020 5:18 PM PDT) + + + + + + | Component | Value | Ref Range | Performed | Pathologist | | | | | At | Signature | + + + + + + | Glucose, | 116 (H)Comment: Testing | 65 - 99 mg/dL | [facility] | | | POC | performed at [facility];[address] | | LABORATORY | | | | [address];[place] | | | | | | [address] | | | | + + + + + + + + | Specimen | + + | | + + + + + + + | Performing | Address | City/State/Zipcode | Phone Number | | Organization | | | | + + + + + | [facility] | [address] | [place] [address] | [phone] | + + + + + POC [...] | | | POC | performed at [facility];[address] | | LABORATORY | | | | [address];[place], [place] | | | | | | [address] | | | | + + + + + + + + | Specimen | + + | | + + + + + + + | Performing | Address | City/State/Zipcode | Phone Number | | Organization | | | | + + + + + | [facility] | [address] | [place] [address] | [phone] | + + + + + POC [...] | | | POC | performed at [facility];[address] | | LABORATORY | | | | [address];[place] | | | | | | [address] | | | | + + + + + + + + | Specimen | + + | | + + + + + + + | Performing | Address | City/State/Zipcode | Phone Number | | Organization | | | | + + + + + | [facility] | [address] | [place] [address] | [phone] | + + + + + POC Glucose (02/17/2020 11:49 AM PDT) + + + + + + | Component | Value | Ref Range | Performed | Pathologist | | | | | At | Signature | + + + + + + | Glucose, | 136 (H)Comment: Testing | 65 - 99 mg/dL | [facility] | | | POC | performed at [facility];[address] | | LABORATORY | | | | [address];[place], [place] | | | | | | [address] | | | | + + + + + + + + | Specimen | + + | | + + + + + + + | Performing | Address | City/State/Zipcode | Phone Number | | Organization | | | | + + + + + | [facility] | [address] | [place] [address] | [phone] | + + + + + POC [...] | | | POC | performed at [facility];[address] | | LABORATORY | | | | [address];[place], [place] | | | | | | [address] | | | | + + + + + + + + | Specimen | + + | | + + + + + + + | Performing | Address | City/State/Zipcode | Phone Number | | Organization | | | | + + + + + | [facility] | [address] | [place] [address] | [phone] | + + + + + POC Glucose (02/17/2020 7:24 AM PDT) + + + + + + | Component | Value | Ref Range | Performed | Pathologist | | | | | At | Signature | + + + + + + | Glucose, | 109 (H)Comment: Testing | 65 - 99 mg/dL | [facility] | | | POC | performed at [facility];[address] | | LABORATORY | | | | [address];[place], [place] | | | | | | [address] | | | | + + + + + + + + | Specimen | + + | | + + + + + + + | Performing | Address | City/State/Zipcode | Phone Number | | Organization | | | | + + + + + | [facility] | [address] | [place] [address] | [phone] | + + + + + XR [...] by: Jagdish Rojas Sadaf Sign Date/Time: 02/17/2020 | | | 6:38 AM | | + + + + + | Procedure Note | + + | Aidan, [id number] - 02/17/2020 6:41 AM PDT | | [...] Final Report Signed by: Jagdish Rojas, Ofelia | | Sign Date/Time: 02/17/2020 6:38 AM [...] | | | POC | performed at [facility];[address] | | LABORATORY | | | | [address];[place], [place] | | | | | | [address] | | | | + + + + + + + + | Specimen | + + | | + + + + + + + | Performing | Address | City/State/Zipcode | Phone Number | | Organization | | | | + + + + + | [facility] | [address] | [place] [address] | [phone] | + + + + + Magnesium (02/17/2020 3:10 AM PDT) + + + + + + | Component | Value | Ref Range | Performed | Pathologist | | | | | At | Signature | + + + + + + | Magnesium | 2.1Comment: Testing | 1.7 - 2.4 mg/dL | [facility] | | | | performed at [facility];[address] | | LABORATORY | | | | [address];[place], [place] | | | | | | [address] | | | | + + + + + + + + | Specimen | + + | Blood | + + + + + + + | Performing | Address | City/State/Zipcode | Phone Number | | Organization | | | | + + + + + | [facility] | [address] | [place] [address] | [phone] | + + + + + CBC [...] | | | Absolute | performed at [facility];[address] | K/uL | LABORATORY | | | | [address];[place], [place] | | | | | | [address] | | | | + + + + + + + + | Specimen | + + | Blood | + + + + + + + | Performing | Address | City/State/Zipcode | Phone Number | | Organization | | | | + + + + + | [facility] | [address] | [place] [address] | [phone] | + + + + + Basic [...] 8.0 (L) | 8.5 - 10.5 | [facility] | | | | | mg/dL | LABORATORY | | + + + + + + | Estimated | >60Comment: GFR <60: | >60 | [facility] | | | GFR | CHRONIC [...] | | | | | | MDRD [facility] traceable | | | | | | equation.Testing | | | | | | performed at [facility];[address] | | | | | | [facility];[place], [place] | | | | | | [address] | | | | + + + + + + + + | Specimen | + + | Blood | + + + + + + + | Performing | Address | City/State/Zipcode | Phone Number | | Organization | | | | + + + + + | [facility] | [address] | [place] [address] | [phone] | + + + + + POC Glucose (02/17/2020 3:08 AM PDT) + + + + + + | Component | Value | Ref Range | Performed | Pathologist | | | | | At | Signature | + + + + + + | Glucose, | 109 (H)Comment: Testing | 65 - 99 mg/dL | [facility] | | | POC | performed at [facility];[address] | | LABORATORY | | | | [address];[place] | | | | | | [address] | | | | + + + + + + + + | Specimen | + + | | + + + + + + + | Performing | Address | City/State/Zipcode | Phone Number | | Organization | | | | + + + + + | [facility] | [address] | [place] [address] | [phone] | + + + + + POC Glucose (02/17/2020 12:55 AM PDT) + + + + + + | Component | Value | Ref Range | Performed | Pathologist | | | | | At | Signature | + + + + + + | Glucose, | 108 (H)Comment: Testing | 65 - 99 mg/dL | [facility] | | | POC | performed at [facility];[address] | | LABORATORY | | | | [address];[place], [place] | | | | | | [address] | | | | + + + + + + + + | Specimen | + + | | + + + + + + + | Performing | Address | City/State/Zipcode | Phone Number | | Organization | | | | + + + + + | [facility] | [address] | [place] [address] | [phone] | + + + + + POC [...] | | | POC | performed at [facility];[address] | | LABORATORY | | | | [address];[place], [place] | | | | | | [address] | | | | + + + + + + + + | Specimen | + + | | + + + + + + + | Performing | Address | City/State/Zipcode | Phone Number | | Organization | | | | + + + + + | [facility] | [address] | [place] [address] | [phone] | + + + + + Potassium (02/16/2020 8:48 PM PDT) + + + + + + | Component | Value | Ref Range | Performed | Pathologist | | | | | At | Signature | + + + + + + | K | 4.0Comment: Testing | 3.5 - 4.9 | [facility] | | | | performed at [facility];[address] | mmol/L | LABORATORY | | | | [address];[place] | | | | | | [address] | | | | + + + + + + + + | Specimen | + + | Blood | + + + + + + + | Performing | Address | City/State/Zipcode | Phone Number | | Organization | | | | + + + + + | [facility] | [address] | [place] [address] | [phone] | + + + + + POC Glucose (02/16/2020 8:47 PM PDT) + + + + + + | Component | Value | Ref Range | Performed | Pathologist | | | | | At | Signature | + + + + + + | Glucose, | 117 (H)Comment: Testing | 65 - 99 mg/dL | [facility] | | | POC | performed at [facility];[address] | | LABORATORY | | | | [address];[place] | | | | | | [address] | | | | + + + + + + + + | Specimen | + + | | + + + + + + + | Performing | Address | City/State/Zipcode | Phone Number | | Organization | | | | + + + + + | [facility] | [address] | [place] [address] | [phone] | + + + + + POC [...] | | | POC | performed at [facility];[address] | | LABORATORY | | | | [address];[place], [place] | | | | | | [address] | | | | + + + + + + + + | Specimen | + + | | + + + + + + + | Performing | Address | City/State/Zipcode | Phone Number | | Organization | | | | + + + + + | [facility] | [address] | [place] [address] | [phone] | + + + + + POC [...] | | | POC | performed at [facility];[address] | | LABORATORY | | | | [address];[place] | | | | | | [address] | | | | + + + + + + + + | Specimen | + + | | + + + + + + + | Performing | Address | City/State/Zipcode | Phone Number | | Organization | | | | + + + + + | [facility] | [address] | [place] [address] | [phone] | + + + + + POC [...] | | | POC | performed at [facility];[address] | | LABORATORY | | | | [address];[place], [place] | | | | | | [address] | | | | + + + + + + + + | Specimen | + + | | + + + + + + + | Performing | Address | City/State/Zipcode | Phone Number | | Organization | | | | + + + + + | [facility] | [address] | [place] [address] | [phone] | + + + + + POC [...] | | | POC | performed at [facility];[address] | | LABORATORY | | | | [address];[place], [place] | | | | | | [address] | | | | + + + + + + + + | Specimen | + + | | + + + + + + + | Performing | Address | City/State/Zipcode | Phone Number | | Organization | | | | + + + + + | [facility] | [address] | [place] [address] | [phone] | + + + + + POC Glucose (02/16/2020 11:01 AM PDT) + + + + + + | Component | Value | Ref Range | Performed | Pathologist | | | | | At | Signature | + + + + + + | Glucose, | 101 (H)Comment: Testing | 65 - 99 mg/dL | [facility] | | | POC | performed at [facility];[address] | | LABORATORY | | | | [address];[place], [place] | | | | | | [address] | | | | + + + + + + + + | Specimen | + + | | + + + + + + + | Performing | Address | City/State/Zipcode | Phone Number | | Organization | | | | + + + + + | [facility] | [address] | [place] [address] | [phone] | + + + + + Potassium (02/16/2020 9:50 AM PDT) + + + + + + | Component | Value | Ref Range | Performed | Pathologist | | | | | At | Signature | + + + + + + | K | 3.9Comment: Testing | 3.5 - 4.9 | [facility] | | | | performed at [facility];[address] | mmol/L | LABORATORY | | | | [address];[place] | | | | | | [address] | | | | + + + + + + + + | Specimen | + + | Blood | + + + + + + + | Performing | Address | City/State/Zipcode | Phone Number | | Organization | | | | + + + + + | [facility] | [address] | [place] [address] | [phone] | + + + + + POC Glucose (02/16/2020 8:57 AM PDT) + + + + + + | Component | Value | Ref Range | Performed | Pathologist | | | | | At | Signature | + + + + + + | Glucose, | 121 (H)Comment: Testing | 65 - 99 mg/dL | [facility] | | | POC | performed at [facility];[address] | | LABORATORY | | | | [address];[place] | | | | | | [address] | | | | + + + + + + + + | Specimen | + + | | + + + + + + + | Performing | Address | City/State/Zipcode | Phone Number | | Organization | | | | + + + + + | [facility] | [address] | [place] [address] | [phone] | + + + + + POC Glucose (02/16/2020 6:54 AM PDT) + + + + + + | Component | Value | Ref Range | Performed | Pathologist | | | | | At | Signature | + + + + + + | Glucose, | 138 (H)Comment: Testing | 65 - 99 mg/dL | [facility] | | | POC | performed at [facility];[address] | | LABORATORY | | | | [address];[place] | | | | | | [address] | | | | + + + + + + + + | Specimen | + + | | + + + + + + + | Performing | Address | City/State/Zipcode | Phone Number | | Organization | | | | + + + + + | [facility] | [address] | [place] [address] | [phone] | + + + + + XR [...] Procedure Note | + + | Aidan, [id number] - 02/16/2020 6:29 AM PDT | | [...] | | Final Report Signed by: Jagdish Edgar James | | Sign Date/Time: 02/16/2020 6:25 AM [...] | | | POC | performed at [facility];[address] | | LABORATORY | | | | [address];[place] | | | | | | [address] | | | | + + + + + + + + | Specimen | + + | | + + + + + + + | Performing | Address | City/State/Zipcode | Phone Number | | Organization | | | | + + + + + | [facility] | [address] | [place] [address] | [phone] | + + + + + POC Glucose (02/16/2020 4:11 AM PDT) + + + + + + | Component | Value | Ref Range | Performed | Pathologist | | | | | At | Signature | + + + + + + | Glucose, | 118 (H)Comment: Testing | 65 - 99 mg/dL | [facility] | | | POC | performed at [facility];[address] | | LABORATORY | | | | [address];[place] | | | | | | [address] | | | | + + + + + + + + | Specimen | + + | | + + + + + + + | Performing | Address | City/State/Zipcode | Phone Number | | Organization | | | | + + + + + | [facility] | [address] | [place] [address] | [phone] | + + + + + Magnesium (02/16/2020 3:08 AM PDT) + + + + + + | Component | Value | Ref Range | Performed | Pathologist | | | | | At | Signature | + + + + + + | Magnesium | 2.1Comment: Testing | 1.7 - 2.4 mg/dL | [facility] | | | | performed at [facility];[address] | | LABORATORY | | | | [address];[place], [place] | | | | | | [address] | | | | + + + + + + + + | Specimen | + + | Blood | + + + + + + + | Performing | Address | City/State/Zipcode | Phone Number | | Organization | | | | + + + + + | [facility] | [address] | [place] [address] | [phone] | + + + + + CBC [...] 0.02Comment: Testing | 0.00 - 0.10 | [facility] | | | Absolute | performed at [facility];[address] | K/uL | LABORATORY | | | | [address];[place] | | | | | | [address] | | | | + + + + + + + + | Specimen | + + | Blood | + + + + + + + | Performing | Address | City/State/Zipcode | Phone Number | | Organization | | | | + + + + + | [facility] | [address] | [place] [address] | [phone] | + + + + + Basic [...] | | | | | performed at [facility];[address] | | | | | | [address];[place] | | | | | | [address] | | | | + + + + + + + + | Specimen | + + | Blood | + + + + + + + | Performing | Address | City/State/Zipcode | Phone Number | | Organization | | | | + + + + + | [facility] | [address] | [place] [address] | [phone] | + + + + + POC [...] | | | POC | performed at [facility];[address] | | LABORATORY | | | | [address];[place] | | | | | | [address] | | | | + + + + + + + + | Specimen | + + | | + + + + + + + | Performing | Address | City/State/Zipcode | Phone Number | | Organization | | | | + + + + + | [facility] | [address] | [place] [address] | [phone] | + + + + + POC [...] | | | POC | performed at [facility];[address] | | LABORATORY | | | | [address];[place] | | | | | | [address] | | | | + + + + + + + + | Specimen | + + | | + + + + + + + | Performing | Address | City/State/Zipcode | Phone Number | | Organization | | | | + + + + + | [facility] | [address] | [place] [address] | [phone] | + + + + + POC [...] | | | POC | performed at [facility];[address] | | LABORATORY | | | | [address];[place] | | | | | | [address] | | | | + + + + + + + + | Specimen | + + | | + + + + + + + | Performing | Address | City/State/Zipcode | Phone Number | | Organization | | | | + + + + + | [facility] | [address] | [place] [address] | [phone] | + + + + + POC [...] | | | POC | performed at [facility];[address] | | LABORATORY | | | | [address];[place], [place] | | | | | | [address] | | | | + + + + + + + + | Specimen | + + | | + + + + + + + | Performing | Address | City/State/Zipcode | Phone Number | | Organization | | | | + + + + + | [facility] | [address] | [place] [address] | [phone] | + + + + + POC [...] | | | POC | performed at [facility];[address] | | LABORATORY | | | | [address];[place] | | | | | | [address] | | | | + + + + + + + + | Specimen | + + | | + + + + + + + | Performing | Address | City/State/Zipcode | Phone Number | | Organization | | | | + + + + + | [facility] | [address] | [place] [address] | [phone] | + + + + + POC Glucose (02/15/2020 7:55 PM PDT) + + + + + + | Component | Value | Ref Range | Performed | Pathologist | | | | | At | Signature | + + + + + + | Glucose, | 121 (H)Comment: Testing | 65 - 99 mg/dL | [facility] | | | POC | performed at [facility];[address] | | LABORATORY | | | | [address];[place] | | | | | | [address] | | | | + + + + + + + + | Specimen | + + | | + + + + + + + | Performing | Address | City/State/Zipcode | Phone Number | | Organization | | | | + + + + + | [facility] | [address] | [place] [address] | [phone] | + + + + + Phosphorus (02/15/2020 6:16 PM PDT) + + + + + + | Component | Value | Ref Range | Performed | Pathologist | | | | | At | Signature | + + + + + + | Phosphorus | 2.1 (L)Comment: Testing | 2.3 - 4.8 mg/dL | [facility] | | | | performed at [facility];[address] | | LABORATORY | | | | [address];[place], [place] | | | | | | [address] | | | | + + + + + + + + | Specimen | + + | | + + + + + + + | Performing | Address | City/State/Zipcode | Phone Number | | Organization | | | | + + + + + | [facility] | [address] | [place] [address] | [phone] | + + + + + Magnesium (02/15/2020 6:16 PM PDT) + + + + + + | Component | Value | Ref Range | Performed | Pathologist | | | | | At | Signature | + + + + + + | Magnesium | 2.2Comment: Testing | 1.7 - 2.4 mg/dL | [facility] | | | | performed at [facility];[address] | | LABORATORY | | | | [address];[place], [place] | | | | | | [address] | | | | + + + + + + + + | Specimen | + + | | + + + + + + + | Performing | Address | City/State/Zipcode | Phone Number | | Organization | | | | + + + + + | [facility] | [address] | [place] [address] | [phone] | + + + + + Potassium (02/15/2020 6:16 PM PDT) + + + + + + | Component | Value | Ref Range | Performed | Pathologist | | | | | At | Signature | + + + + + + | K | 3.9Comment: Testing | 3.5 - 4.9 | [facility] | | | | performed at [facility];888 | mmol/L | LABORATORY | | | | [address];[place] | | | | | | [address] | | | | + + + + + + + + | Specimen | + + | Blood | + + + + + + + | Performing | Address | City/State/Zipcode | Phone Number | | Organization | | | | + + + + + | [facility] | [address] | [place] [address] | [phone] | + + + + + POC [...] | | | POC | performed at [facility];[address] | | LABORATORY | | | | [address];[place], [place] | | | | | | [address] | | | | + + + + + + + + | Specimen | + + | | + + + + + + + | Performing | Address | City/State/Zipcode | Phone Number | | Organization | | | | + + + + + | [facility] | [address] | [place] [address] | [phone] | + + + + + POC [...] | | | POC | performed at [facility];[address] | | LABORATORY | | | | [address];[place] | | | | | | [address] | | | | + + + + + + + + | Specimen | + + | | + + + + + + + | Performing | Address | City/State/Zipcode | Phone Number | | Organization | | | | + + + + + | [facility] | [address] | [place] [address] | [phone] | + + + + + POC Glucose (02/15/2020 12:54 PM PDT) + + + + + + | Component | Value | Ref Range | Performed | Pathologist | | | | | At | Signature | + + + + + + | Glucose, | 103 (H)Comment: Testing | 65 - 99 mg/dL | [facility] | | | POC | performed at [facility];[address] | | LABORATORY | | | | [address];[place] | | | | | | [address] | | | | + + + + + + + + | Specimen | + + | | + + + + + + + | Performing | Address | City/State/Zipcode | Phone Number | | Organization | | | | + + + + + | [facility] | [address] | [place] [address] | [phone] | + + + + + POC Glucose (02/15/2020 10:45 AM PDT) + + + + + + | Component | Value | Ref Range | Performed | Pathologist | | | | | At | Signature | + + + + + + | Glucose, | 116 (H)Comment: Testing | 65 - 99 mg/dL | [facility] | | | POC | performed at [facility];[address] | | LABORATORY | | | | [address];[place] | | | | | | [address] | | | | + + + + + + + + | Specimen | + + | | + + + + + + + | Performing | Address | City/State/Zipcode | Phone Number | | Organization | | | | + + + + + | [facility] | [address] | [place] [address] | [phone] | + + + + + POC Glucose (02/15/2020 9:41 AM PDT) + + + + + + | Component | Value | Ref Range | Performed | Pathologist | | | | | At | Signature | + + + + + + | Glucose, | 110 (H)Comment: Testing | 65 - 99 mg/dL | [facility] | | | POC | performed at [facility];[address] | | LABORATORY | | | | [address];[place], [place] | | | | | | [address] | | | | + + + + + + + + | Specimen | + + | | + + + + + + + | Performing | Address | City/State/Zipcode | Phone Number | | Organization | | | | + + + + + | [facility] | [address] | [place] [address] | [phone] | + + + + + POC [...] | | | POC | performed at [facility];[address] | | LABORATORY | | | | [address];[place] | | | | | | [address] | | | | + + + + + + + + | Specimen | + + | | + + + + + + + | Performing | Address | City/State/Zipcode | Phone Number | | Organization | | | | + + + + + | [facility] | [address] | [place] [address] | [phone] | + + + + + POC Glucose (02/15/2020 7:02 AM PDT) + + + + + + | Component | Value | Ref Range | Performed | Pathologist | | | | | At | Signature | + + + + + + | Glucose, | 108 (H)Comment: Testing | 65 - 99 mg/dL | [facility] | | | POC | performed at [facility];[address] | | LABORATORY | | | | [address];[place] | | | | | | [address] | | | | + + + + + + + + | Specimen | + + | | + + + + + + + | Performing | Address | City/State/Zipcode | Phone Number | | Organization | | | | + + + + + | [facility] | [address] | [place] [address] | [phone] | + + + + + POC Glucose (02/15/2020 5:37 AM PDT) + + + + + + | Component | Value | Ref Range | Performed | Pathologist | | | | | At | Signature | + + + + + + | Glucose, | 115 (H)Comment: Testing | 65 - 99 mg/dL | [facility] | | | POC | performed at [facility];[address] | | LABORATORY | | | | [address];[place], [place] | | | | | | [address] | | | | + + + + + + + + | Specimen | + + | | + + + + + + + | Performing | Address | City/State/Zipcode | Phone Number | | Organization | | | | + + + + + | [facility] | [address] | [place] [address] | [phone] | + + + + + XR [...] Procedure Note | + + | Aidan, [id number] - 02/15/2020 6:51 AM PDT | | [...] [facility] | | | | performed at [facility];8 | | LABORATORY | | | | [address];[place] | | | | | | [address] | | | | + + + + + + + + | Specimen | + + | Blood | + + + + + + + | Performing | Address | City/State/Zipcode | Phone Number | | Organization | | | | + + + + + | [facility] | [address] | [place] [address] | [phone] | + + + + + CBC [...] | | | Absolute | performed at [facility];[address] | K/uL | LABORATORY | | | | [address];[place], [place] | | | | | | [address] | | | | + + + + + + + + | Specimen | + + | Blood | + + + + + + + | Performing | Address | City/State/Zipcode | Phone Number | | Organization | | | | + + + + + | [facility] | [address] | [place] [address] | [phone] | + + + + + Basic [...] | >60Comment: GFR <60: | >60 | [facility] | | | GFR | CHRONIC [...] | | | | | | MDRD IDDE traceable | | | | | | equation.Testing | | | | | | performed at [facility];[address] | | | | | | [facility];[place], [place] | | | | | | [address] | | | | + + + + + + + + | Specimen | + + | Blood | + + + + + + + | Performing | Address | City/State/Zipcode | Phone Number | | Organization | | | | + + + + + | [facility] | [address] | [place] [address] | [phone] | + + + + + POC Glucose (02/15/2020 3:48 AM PDT) + + + + + + | Component | Value | Ref Range | Performed | Pathologist | | | | | At | Signature | + + + + + + | Glucose, | 96Comment: Testing | 65 - 99 mg/dL | [facility] | | | POC | performed at [facility];[address] | | LABORATORY | | | | [address];[place] | | | | | | [address] | | | | + + + + + + + + | Specimen | + + | | + + + + + + + | Performing | Address | City/State/Zipcode | Phone Number | | Organization | | | | + + + + + | [facility] | [address] | [place] [address] | [phone] | + + + + + POC Glucose (02/15/2020 1:02 AM PDT) + + + + + + | Component | Value | Ref Range | Performed | Pathologist | | | | | At | Signature | + + + + + + | Glucose, | 107 (H)Comment: Testing | 65 - 99 mg/dL | [facility] | | | POC | performed at [facility];[address] | | LABORATORY | | | | [address];[place] | | | | | | [address] | | | | + + + + + + + + | Specimen | + + | | + + + + + + + | Performing | Address | City/State/Zipcode | Phone Number | | Organization | | | | + + + + + | [facility] | [address] | [place] [address] | [phone] | + + + + + Potassium (02/14/2020 11:58 PM PDT) + + + + + + | Component | Value | Ref Range | Performed | Pathologist | | | | | At | Signature | + + + + + + | K | 4.1Comment: Testing | 3.5 - 4.9 | [facility] | | | | performed at [facility];888 | mmol/L | LABORATORY | | | | [address];[place] | | | | | | [address] | | | | + + + + + + + + | Specimen | + + | Blood | + + + + + + + | Performing | Address | City/State/Zipcode | Phone Number | | Organization | | | | + + + + + | [facility] | [address] | [place] [address] | [phone] | + + + + + POC Glucose (02/14/2020 11:57 PM PDT) + + + + + + | Component | Value | Ref Range | Performed | Pathologist | | | | | At | Signature | + + + + + + | Glucose, | 100 (H)Comment: Testing | 65 - 99 mg/dL | [facility] | | | POC | performed at [facility];[address] | | LABORATORY | | | | [address];[place] | | | | | | [address] | | | | + + + + + + + + | Specimen | + + | | + + + + + + + | Performing | Address | City/State/Zipcode | Phone Number | | Organization | | | | + + + + + | [facility] | [address] | [place] [address] | [phone] | + + + + + POC Glucose (02/14/2020 10:08 PM PDT) + + + + + + | Component | Value | Ref Range | Performed | Pathologist | | | | | At | Signature | + + + + + + | Glucose, | 114 (H)Comment: Testing | 65 - 99 mg/dL | [facility] | | | POC | performed at [facility];[address] | | LABORATORY | | | | [address];[place] | | | | | | [address] | | | | + + + + + + + + | Specimen | + + | | + + + + + + + | Performing | Address | City/State/Zipcode | Phone Number | | Organization | | | | + + + + + | [facility] | [address] | [place] [address] | [phone] | + + + + + Potassium (02/14/2020 9:30 PM PDT) + + + + + + | Component | Value | Ref Range | Performed | Pathologist | | | | | At | Signature | + + + + + + | K | 4.5Comment: Testing | 3.5 - 4.9 | [facility] | | | | performed at [facility];888 | mmol/L | LABORATORY | | | | [facility];[place], [place] | | | | | | [address] | | | | + + + + + + + + | Specimen | + + | Blood | + + + + + + + | Performing | Address | City/State/Zipcode | Phone Number | | Organization | | | | + + + + + | [facility] | [address] | [place] [address] | [phone] | + + + + + POC [...] | | | POC | performed at [facility];[address] | | LABORATORY | | | | [address];[place] | | | | | | [address] | | | | + + + + + + + + | Specimen | + + | | + + + + + + + | Performing | Address | City/State/Zipcode | Phone Number | | Organization | | | | + + + + + | [facility] | [address] | [place] [address] | [phone] | + + + + + POC Glucose (02/14/2020 6:19 PM PDT) + + + + + + | Component | Value | Ref Range | Performed | Pathologist | | | | | At | Signature | + + + + + + | Glucose, | 113 (H)Comment: Testing | 65 - 99 mg/dL | [facility] | | | POC | performed at [facility];[address] | | LABORATORY | | | | [address];[place] | | | | | | [address] | | | | + + + + + + + + | Specimen | + + | | + + + + + + + | Performing | Address | City/State/Zipcode | Phone Number | | Organization | | | | + + + + + | [facility] | [address] | [place] [address] | [phone] | + + + + + Potassium (02/14/2020 4:09 PM PDT) + + + + + + | Component | Value | Ref Range | Performed | Pathologist | | | | | At | Signature | + + + + + + | K | 4.1Comment: Testing | 3.5 - 4.9 | [facility] | | | | performed at [facility];888 | mmol/L | LABORATORY | | | | [address];[place] | | | | | | [address] | | | | + + + + + + + + | Specimen | + + | Blood | + + + + + + + | Performing | Address | City/State/Zipcode | Phone Number | | Organization | | | | + + + + + | [facility] | [address] | [place] [address] | [phone] | + + + + + Blood [...] | | | Arterial, | performed at [facility];[address] | | LABORATORY | | | POC | [address];[place] | | | | | | [address] | | | | + + + + + + + + | Specimen | + + | | + + + + + + + | Performing | Address | City/State/Zipcode | Phone Number | | Organization | | | | + + + + + | [facility] | [address] | [place] [address] | [phone] | + + + + + POC Glucose (02/14/2020 3:57 PM PDT) + + + + + + | Component | Value | Ref Range | Performed | Pathologist | | | | | At | Signature | + + + + + + | Glucose, | 121 (H)Comment: Testing | 65 - 99 mg/dL | [facility] | | | POC | performed at [facility];[address] | | LABORATORY | | | | [address];[place], [place] | | | | | | [address] | | | | + + + + + + + + | Specimen | + + | | + + + + + + + | Performing | Address | City/State/Zipcode | Phone Number | | Organization | | | | + + + + + | [facility] | [address] | [place] [address] | [phone] | + + + + + POC [...] | | | POC | performed at [facility];[address] | | LABORATORY | | | | [address];[place], [place] | | | | | | [address] | | | | + + + + + + + + | Specimen | + + | | + + + + + + + | Performing | Address | City/State/Zipcode | Phone Number | | Organization | | | | + + + + + | [facility] | [address] | [place] [address] | [phone] | + + + + + POC Glucose (02/14/2020 1:46 PM PDT) + + + + + + | Component | Value | Ref Range | Performed | Pathologist | | | | | At | Signature | + + + + + + | Glucose, | 134 (H)Comment: Testing | 65 - 99 mg/dL | [facility] | | | POC | performed at [facility];[address] | | LABORATORY | | | | [address];[place] | | | | | | [address] | | | | + + + + + + + + | Specimen | + + | | + + + + + + + | Performing | Address | City/State/Zipcode | Phone Number | | Organization | | | | + + + + + | [facility] | [address] | [place] [address] | [phone] | + + + + + ECG [...] | | | | | | determined bybott, it | | | | | | [...] | | | Arterial, | performed at [facility];[address] | | LABORATORY | | | POC | [address];[place] | | | | | | [address] | | | | + + + + + + + + | Specimen | + + | | + + + + + + + | Performing | Address | City/State/Zipcode | Phone Number | | Organization | | | | + + + + + | [facility] | [address] | [place] [address] | [phone] | + + + + + XR [...] Procedure Note | + + | Aidan, [id number] - 02/14/2020 1:28 PM PDT | | [...] | | | POC | performed at [facility];[address] | | LABORATORY | | | | [address];[place] | | | | | | [address] | | | | + + + + + + + + | Specimen | + + | | + + + + + + + | Performing | Address | City/State/Zipcode | Phone Number | | Organization | | | | + + + + + | [facility] | [address] | [place] [address] | [phone] | + + + + + Calcium, [...] | LABORATORY | | | | [facility] [facility] | | | | | | [address];[place] [address] | | | | + + + + + + + + | Specimen | + + | Blood | + + + + + + + | Performing | Address | City/State/Zipcode | Phone Number | | Organization | | | | + + + + + | [facility] | [address] | [place] [address] | [phone] | + + + + + Hemoglobin A1C (02/14/2020 12:30 PM PDT) + + + + + + | Component | Value | Ref Range | Performed | Pathologist | | | | | At | Signature | + + + + + + | Hemoglobin | 12.1 (H)Comment: | 4.8 - 5.6 % | [facility] | | | A1c | Prediabetes: 5.[address] [...] [address], | | | | | | [address], [facility] | | | | | | [address] | | | | + + + + + + + + | Specimen | + + | Blood | + + + + + + + | Performing | Address | City/State/Zipcode | Phone Number | | Organization | | | | + + + + + | [facility] | [address] | [place] [address] | [phone] | + + + + + PTT (02/14/2020 12:30 PM PDT) + + + + + + | Component | Value | Ref Range | Performed | Pathologist | | | | | At | Signature | + + + + + + | PTT | 24Comment: Testing | 23 - 32 seconds | [facility] | | | | performed at [facility];[address] | | LABORATORY | | | | [address];[place] | | | | | | [address] | | | | + + + + + + + + | Specimen | + + | Blood | + + + + + + + | Performing | Address | City/State/Zipcode | Phone Number | | Organization | | | | + + + + + | [facility] | [address] | [place] [address] | [phone] | + + + + + Protime INR (02/14/2020 12:30 PM PDT) + + + + + + | Component | Value | Ref Range | Performed | Pathologist | | | | | At | Signature | + + + + + + | INR | 1.2Comment: REFERENCE | | [facility] | | | | RANGE:0.9 - [...] | | | | | performed at [facility];[address] | | | | | | [address];[place] | | | | | | [address] | | | | + + + + + + + + | Specimen | + + | Blood | + + + + + + + | Performing | Address | City/State/Zipcode | Phone Number | | Organization | | | | + + + + + | [facility] | [address] | [place] [address] | [phone] | + + + + + Magnesium (02/14/2020 12:30 PM PDT) + + + + + + | Component | Value | Ref Range | Performed | Pathologist | | | | | At | Signature | + + + + + + | Magnesium | 2.4Comment: Testing | 1.7 - 2.4 mg/dL | [facility] | | | | performed at [facility];[address] | | LABORATORY | | | | [address];[place] | | | | | | [address] | | | | + + + + + + + + | Specimen | + + | Blood | + + + + + + + | Performing | Address | City/State/Zipcode | Phone Number | | Organization | | | | + + + + + | [facility] | [address] | [place] [address] | [phone] | + + + + + Fibrinogen (02/14/2020 12:30 PM PDT) + + + + + + | Component | Value | Ref Range | Performed | Pathologist | | | | | At | Signature | + + + + + + | Fibrinogen | 195 (L)Comment: Testing | 200 - 450 mg/dL | [facility] | | | | performed at [facility];[address] | | LABORATORY | | | | [address];[place], [place] | | | | | | [address] | | | | + + + + + + + + | Specimen | + + | Blood | + + + + + + + | Performing | Address | City/State/Zipcode | Phone Number | | Organization | | | | + + + + + | [facility] | [address] | [place] [address] | [phone] | + + + + + CBC [...] 0.04Comment: Testing | 0.00 - 0.10 | [facility] | | | Absolute | performed at [facility];[address] | K/uL | LABORATORY | | | | [place] | | | | | | [address] | | | | + + + + + + + + | Specimen | + + | Blood | + + + + + + + | Performing | Address | City/State/Zipcode | Phone Number | | Organization | | | | + + + + + | [facility] | [address] | [place] [address] | [phone] | + + + + + Basic [...] | | | | | performed at [facility];[address] | | | | | | [address];[place], [place] | | | | | | [address] | | | | + + + + + + + + | Specimen | + + | Blood | + + + + + + + | Performing | Address | City/State/Zipcode | Phone Number | | Organization | | | | + + + + + | [facility] | [address] [facility] | [place] [address] | [phone] | + + + + + ECHO Transesophageal (JOHN) - Periop (02/14/2020 12:23 PM PDT) + + | Specimen | + + | | + + + + + | Narrative | Performed At | + + + | | [facility] | | Transesophageal Echocardiography Report (JOHN) Demographics Patient | | | Name NILSA JAMA Room Number 9115 | | | . 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 | | | Procedure DateDate: 02/14/2020 Start: 06:47 AM Conclusions Summary | | | Significant mobile plaque in the arch and descending aorta. Post CABG, | | | no change in torres martinez valvular function or new segmental wall motion [...] Procedure Note | + + | Aidan, [id number] - 02/19/2020 12:56 PM PDT Transesophageal Echocardiography Report (JOHN) | | | | Demographics | | | | Patient Name NILSA JAMA Room Number 9115 | | JR. 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 | | | | Procedure Date | | Date: 02/14/2020 Start: 06:47 AM | | | | Conclusions | | | | Summary | | Significant mobile plaque in the arch and descending aorta. | | Post CABG, no change in torres martinez valvular function or new segmental wall | [...] | | | Arterial, | performed at [facility];[address] | | LABORATORY | | | POC | [address];[place], [place] | | | | | | [address] | | | | + + + + + + + + | Specimen | + + | | + + + + + + + | Performing | Address | City/State/Zipcode | Phone Number | | Organization | | | | + + + + + | [facility] | [address] | [place] [address] | [phone] | + + + + + Product: Platelet Pheresis, Leukoreduced (02/14/2020 12:05 PM PDT) + + + + + + | Component | Value | Ref Range | Performed | Pathologist | | | | | At | Signature | + + + + + + | Product | PLATELET GROUP | | [facility] | | | [...] + + + | UNIT # | [id number] | | [facility] | | | | | | LABORATORY | | + + + + + + | Product | PAS LR PLATELET,IRR A | | [facility] | | [...] | | | Status | performed at [facility] | | LABORATORY | | | | [address];[place], [place] | | | | | | [address] | | | | + + + + + + | UNIT # | [id number] | | [facility] | | | | | | LABORATORY | | + + + + + + | Product | PAS WILLIAN FRASERIRR B | | [facility] | | | [...] | + + + + + | [facility] | [address] | [place] [address] | [phone] | + + + + + POC CG 4, ISTAT Arterial (02/14/2020 11:53 AM PDT) + + + + + + | Component | Value | Ref Range | Performed | Pathologist | | | | | At | Signature | + + + + + + | pH, | 7.192 (LL)Comment: This | 7.350 - 7.450 | [facility] | | | Arterial, | test was [...] | | | Arterial, | performed at [facility];[address] | | LABORATORY | | | POC | [address];[place], [place] | | | | | | [address] | | | | + + + + + + + + | Specimen | + + | | + + + + + + + | Performing | Address | City/State/Zipcode | Phone Number | | Organization | | | | + + + + + | [facility] | [address] | [place] [address] | [phone] | + + + + + POC ISTAT, CG8, Arterial (02/14/2020 11:48 AM PDT) + + + + + + | Component | Value | Ref Range | Performed | Pathologist | | | | | At | Signature | + + + + + + | pH, | 7.186 (LL) | 7.350 - 7.450 | [facility] | | | Arterial, | | [...] | | | POC | performed at [facility];888 | g/dL | LABORATORY | | | | [address];[place] | | | | | | [address] | | | | + + + + + + + + | Specimen | + + | | + + + + + + + | Performing | Address | City/State/Zipcode | Phone Number | | Organization | | | | + + + + + | [facility] | [address] | [place] [address] | [phone] | + + + + + POC RIGOBERTO BUSTILLO8, Arterial (02/14/2020 11:03 AM PDT) + + [...] (L)Comment: Testing | 13.7 - 16.7 | [facility] | | | POC | performed at [facility];888 | g/dL | LABORATORY | | | | [address];[place] | | | | | | [address] | | | | + + + + + + + + | Specimen | + + | | + + + + + + + | Performing | Address | City/State/Zipcode | Phone Number | | Organization | | | | + + + + + | [facility] | [address] | [place] [address] | [phone] | + + + + + POC [...] | | | Arterial, | performed at [facility];[address] | | LABORATORY | | | POC | [address] [facility];[place], [place] | | | | | | [address] | | | | + + + + + + + + | Specimen | + + | | + + + + + + + | Performing | Address | City/State/Zipcode | Phone Number | | Organization | | | | + + + + + | [facility] | [address] | [place] [address] | [phone] | + + + + + POC ISTAT, CG8, Arterial (02/14/2020 10:28 AM PDT) + + + + + + | Component | Value | Ref Range | Performed | Pathologist | | | | | At | Signature | + + + + + + | pH, | 7.318 (L) | 7.350 - 7.450 | [facility] | [...] | | | POC | performed at [facility];888 | g/dL | LABORATORY | | | | [address];[place] | | | | | | [address] | | | | + + + + + + + + | Specimen | + + | | + + + + + + + | Performing | Address | City/State/Zipcode | Phone Number | | Organization | | | | + + + + + | [facility] | [address] | [place] [address] | [phone] | + + + + + POC KENY CG8Blaise (02/14/2020 10:09 AM PDT) + + + [...] | | | POC | performed at [facility];888 | g/dL | LABORATORY | | | | [address];[place], [place] | | | | | | [address] | | | | + + + + + + + + | Specimen | + + | | + + + + + + + | Performing | Address | City/State/Zipcode | Phone Number | | Organization | | | | + + + + + | [facility] | [address] | [place] [address] | [phone] | + + + + + SATISH REGAN Arterial (02/14/2020 10:03 AM PDT) + + [...] | | | POC | performed at [facility];888 | g/dL | LABORATORY | | | | [address];[place], [place] | | | | | | [address] | | | | + + + + + + + + | Specimen | + + | | + + + + + + + | Performing | Address | City/State/Zipcode | Phone Number | | Organization | | | | + + + + + | [facility] | [address] | [place] [address] | [phone] | + + + + + POC [...] | | | POC | performed at [facility];888 | g/dL | LABORATORY | | | | [address];[place], [place] | | | | | | [address] | | | | + + + + + + + + | Specimen | + + | | + + + + + + + | Performing | Address | City/State/Zipcode | Phone Number | | Organization | | | | + + + + + | [facility] | [address] | [place] [address] | [phone] | + + + + + POC ISTAT, CG8, Arterial (02/14/2020 7:54 AM PDT) + + + + + + | Component | Value | Ref Range | Performed | Pathologist | | | | | At | Signature | + + + + + + | pH, | 7.296 (L) | 7.350 - 7.450 | [facility] | | | Arterial, | | [...] | | | POC | performed at [facility];888 | g/dL | LABORATORY | | | | [address];[place], [place] | | | | | | [address] | | | | + + + + + + + + | Specimen | + + | | + + + + + + + | Performing | Address | City/State/Zipcode | Phone Number | | Organization | | | | + + + + + | [facility] | [address] | [place] [address] | [phone] | + + + + + Red [...] BANK | Testing performed at | | CHASTITY | | | COMMENT | [facility];[address] [place] [address] | | LABORATORY | | | | [address];[place] [address] | | | | + + + + + + + + | Specimen | + + | | + + + + + + + | Performing | Address | City/State/Zipcode | Phone Number | | Organization | | | | + + + + + | [facility] | [address] | [place] [address] | [phone] | + + + + + Type [...] + + + | BB BAND | [id number] | | [facility] | | | | | | LABORATORY | | + + + + + + | UNIT # | [id number] | | [facility] | | | | [...] + + + | UNIT # | [id number] | | [facility] | | | | [...] | | | RESULT | performed at [facility] | | LABORATORY | | | | [address];[place] | | | | | | [address] | | | | + + + + + + | UNIT # | [id number] | | [facility] | | | | [...] + + + | UNIT # | [id number] | | [facility] | | | | [...] | + + + + + | [facility] | [address] | [place] [address] | [phone] | + + + + + CBC [...] LABORATORY | | | | performed at [facility];[address] | | | | | | [address];[place] | | | | | | [address] | | | | + + + + + + + + | Specimen | + + | Blood | + + + + + + + | Performing | Address | City/State/Zipcode | Phone Number | | Organization | | | | + + + + + | [facility] | [address] | [place] [address] | [phone] | + + + + + Basic [...] | 9.6 | 8.5 - 10.5 | [facility] | | | | | mg/dL | LABORATORY | | + + + + + + | Estimated | >60Comment: GFR <60: | >60 | [facility] | | | GFR | CHRONIC [...] | | | | | performed at [facility];[address] | | | | | | [facility];[place], [place] | | | | | | [address] | | | | + + + + + + + + | Specimen | + + | Blood | + + + + + + + | Performing | Address | City/State/Zipcode | Phone Number | | Organization | | | | + + + + + | [facility] | [address] | [place] [address] | [phone] | + + + + + POC [...] | | | POC | performed at [facility];[address] | | LABORATORY | | | | [address];[place], [place] | | | | | | [address] | | | | + + + + + + + + | Specimen | + + | | + + + + + + + | Performing | Address | City/State/Zipcode | Phone Number | | Organization | | | | + + + + + | [facility] | [address] [facility] | [place] [address] | [phone] | + + + + + POC [...] Negative results, using the | | | [employer] NOW Platform, should be treated as presumptive [...] Diagnosis | + + | CAD in torres martinez artery Coronary atherosclerosis of torres martinez coronary artery | + + documented in this encounter Admitting Diagnoses + + | Diagnosis | + + | CAD in torres martinez artery Coronary atherosclerosis of torres martinez coronary artery | + + documented in [...] | | | Starting 02/14/20 at 1233, If | | | | [...] | | | | | dose on Sue 02/15/20 at 0900 | | AM [...] | docusate sodium (COLACE) | Given | 09/27/20 | 100 mg | | | | [...] PDT | | | | +-------+ +--------+---+---+ + +---+ | | | [...] PDT | | | | +-------+ +--------+---+---+ + +---+ | | | [...] | + +---+ + +-------+ +--------+---+---+ | tamsulosin (FLOMAX) capsule [...]
--- OUTSIDE RECORDS SUMMARY | ~2020-02-21 | XMS | Encounter Summary ---
Demographics + + + | Address | [address] | | | [place] [address] | + + + | Home Phone | | + + + | Preferred Language | Unknown | + + + | Marital Status | Unknown | + + + | Shinto Affiliation | Unknown | + + + | Race | White | + + + | Ethnic Group | Not or | + + + Author + + + | Author | [facility] | | | and [place] | + + + | Organization | [facility] | | | and [place] | + + + | Address | Unknown | + + + | Phone | Unavailable | + + + Support + + + + + | Name | Relationship | Address | Phone | + + + + + | Valerie Perales | ECON | [address] | | | | | [place] | | | | | [address] | | + + + + + Care Team Providers + +------+ + | Care Cell Reliner Name | Role | Phone | + +------+ + PCP | Unavailable | + +------+ + Reason for Referral Evaluate & Treat (Urgent) +--------+ + + + + + | Status | Reason | Specialty | Diagnoses / | Referred By | Referred To | | | | | Procedures | Contact | Contact | +--------+ + + + + + | Closed | Specialty | Cardiothoraci | Diagnoses | Bennie, | Tayo, | | | Services | c Surgery | Coronary | MD Gary | MD Cj | | | Required | | artery | [address] | | | | | disease | [address] | [address] | | | | | involving | [place], | [place], [place] | | | | | [place] | [place] [address] | [address] Phone: | | | | | coronary | Phone: | [phone] | | | | | artery of | [phone] | Fax: | | | | | [place] heart | Fax: | [phone] | | | | | without | [phone] | | | | | | angina | | | | | | | pectoris | | | +--------+ + + + + + Encounter Details +--------+ + + + + | Date | Type | Department | Care Team | Description | +--------+ + + + + | 11/15/ | Orders Only | [facility] | Gary Avery MD | Coronary artery | | 2020 | | CARDIOLOGY [place] | [address] | disease involving | | | | [address] | [place] [address] | [place] coronary | | | | [place], [place] | [phone] | artery of [place] | | | | [address] | | heart without angina | | | | [phone] | | pectoris | +--------+ + + + + [...] | + +---+---+---+ + + | Comments: Nicotine patch | + + [...] as of this encounter Plan of Treatment + + +--------+ + + | Name | Type | Priori | Associated Diagnoses | Order Schedule | | | | ty | | | + + +--------+ + + | Ambulatory referral | Outpatient | Routin | Coronary artery | Ordered: 11/16/2019 | | to [facility] | Referral | e | disease involving | | | Cardiothoracic | | | [place] coronary | | | Surgery | | | artery of [place] | | | | | | heart without angina | | | | | | pectoris | | + + +--------+ + + documented as of this encounter Visit Diagnoses + + | Diagnosis | + + | 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
--- OUTSIDE RECORDS SUMMARY | ~2020-02-21 | XMS | Encounter Summary ---
Demographics + + + | Address | [address] | | | [place] [address] | + + + | Home Phone [...] Author + + + | Author | [facility] | | | and [place] | + + + | Organization | [facility] | | | and [place] | + + + | Address | Unknown | + + + | Phone | Unavailable | + + + Support + + + + + | Name | Relationship | Address | Phone | + + + + + | Valerie Perales | ECON | [address] | | | | | [place] | | | | | [address] | | + + + + + Care Team Providers + +------+ + | Care Baggagemaster Name | Role | Phone | + +------+ + | Domingo Justice PA-C | PCP | | + +------+ + Reason for Visit +--------+--------+ + | Reason | Onset | Comments | | | Date | | +--------+--------+ + | Other | 12/20/ | | | | 2020 | | +--------+--------+ + Encounter Details +--------+ + + + + | Date | Type | Department | Care Team | Description | +--------+ + + + + | 12/20/ | Telephone | [facility] | Gary Avery MD | Other | | 2019 | | [facility] | [address] | | | | | [address] | [place] [address] | | | | | [place], [place] | [phone] | | | | | [address] | | | | | | [phone] | | | +--------+ + + + + Social History + +-------+ +--------+ + | Tobacco Use | Types | Packs/Day | Years | Date | | | | | Used | | + +-------+ +--------+ + | Current Every Day | | 0.25 | | Started: 11/27/1974 | | Smoker | | | | | + +-------+ +--------+ + + +---+---+---+ | Smokeless Tobacco: | | | | | Never Used | | | | + +---+---+---+ + + | Comments: Nicotine patch, 1-2 cigarettes a day | + + + + +---------+ + [...] this encounter Miscellaneous Notes Telephone Encounter - Kristin Sawyer Medical Assistant - 12/21/2019 8:[address] Meredith roman I called patient and made an appointment for him. Patient will be coming in next week. Kristin Holttronically signed by Kayla Daniel at 12/21/2019 8: 56 AM PDTTelephone Encounter - Kristin Sawyer Medical Assistant - 12/21/2019 8:55 AM PDT--- -- Message from Gary Avery MD sent at 12/21/2019 8:47 AM PDT ----- Shanae,We need to see him in the clinic next week to discuss what has been going on.He will need CABG sometime between January and February. ----- Message ----- From: Kayla Daniel Sent: 12/20/2019 4:43 PM PDT To: Gary Avery MD [facility], Patient has seen Dr. Cr and now would like to know what is the next step. Please advise. Kristin PINOT document ed in this encounter Plan of Treatment Not on filedocumented as of this encounter Visit Diagnoses Not on filedocumented in this encounter"
--- OUTSIDE RECORDS SUMMARY | ~2020-02-21 | XMS | Encounter Summary ---
Demographics + + + | Address | [address] | | | [place] [address] | + + + | Home Phone [...] Author + + + | Author | [facility] | | | and [place] | + + + | Organization | [facility] | | | and [place] | + + + | Address | Unknown | + + + | Phone | Unavailable | + + + Support + + + + + | Name | Relationship | Address | Phone | + + + + + | Valerie Perales | ECON | [address] | | | | | [place], [place] | | | | | [address] | | + + + + + Care Team Providers + +------+ + | Care Project Reservoir Engineer Name | Role | Phone | + +------+ + PCP | Unavailable | + +------+ + Reason for Visit [...] | | | | infarction) | | [place] | | | | | ([facility]) stemi | | [id number] Phone: | | | | | Procedures | | [phone] | | | | | . | | Fax: | | | | | | | [phone] | +--------+--------+ + + + + Encounter Details +--------+---------+ + + + | Date | Type | Department | Care Team | Description | +--------+---------+ + + + | 11/08/ | Surgery | [facility] | Gary Avery MD | CV COR ANGIO | | 2019 | | CENTER CV INTRA OP | [address] | | | | | [address] | [place] [address] | | | | | [facility] [place] | [phone] | | | | | [address] | | | | | | [phone] | | | +--------+---------+ + + + [...] + + + | Blood Pressure | 131/74 | 11/09/2019 3:45 PM | | | | | PDT | | + + + + + | Pulse | 80 | 11/09/2019 3:45 PM | | | | | PDT | | + + + + + | Temperature | 36.6 C (97.8 F) | 11/09/2019 3:39 PM | | | | | PDT | | + + + + + | Respiratory Rate | 35 | 11/09/2019 3:45 PM | | | | | PDT | | + + + + + | Oxygen Saturation | 96% | 11/09/2019 3:45 PM | | | | | PDT [...] in the setting of inferior ST elevation FL. Angiop lasty of the right AV groove artery and PCI with 2.5 x 24 mm Synergy stent. Hospital course: Patient is 64-year-old male who presented to the hospital with chest pain on 08 November second leny to chest pain was found to have inferior ST elevation FL. Was taken urgently to heart c atheterization [...] try basil, cilantro, cinnamon, pepper, and giancarlo. [employer] last reviewed this educational content on 02/21/201719998842-7455 [employer]. [address] [place] [address], [place] [address]. All righ ts reserved. This information is [...] new orders, expected finding. Will draw trop agai n w/ a.m. labs tomorrow. Chart check complete. P Gary Piña MD - 11/10/2019 8:50 AM PDT [facility] Service: Cardiology Progress Note Name of Metallurgical Engineer: Gary Avery MD I have seen the [...] normal a xis, normal P wave and VA interval, inferior ST elevation. Last Echo: November [...] Avery MD - 11/09/2019 3:31 PM PDT [facility] Service: Cardiology History & Physical Name of Admitting Physician: Gary Avery MD Date of Admission: 11/09/2019 CHIEF COMPLAINT: Chest pain for 1 hour HISTORY OF PRESENT ILLNESS: Miles Sylvester is 64 y.o. gentleman who presented to the emergency room in [facility] complaining of acute onset of chest pain for 1 hour, in the center, no radiation, ass ociated with difficulty breathing, no specific precipitating factors. He had another episode on Wednesday that lasted in the evening. He went to urgent care the ne xt morning and he said he was given pain medication. Upon presentation to the ER, he was identified as inferior STEMI. He was given aspirin, cl opidogrel and IV heparin and transferred to our hospital. When I met him in the [facility] [employer], he was chest pain-free. REVIEW OF SYSTEMS [...] normal a xis, normal P wave and VA interval, inferior ST elevation. Last Echo: Last [...] file. - Goes to [facility] Physician Francisco Rushing Contact Information Family Contact Information: Name: Kingsley Sylvester - Pt son in [facility] [place] Needs Assessment Current Outpt/Agency/Support Groups: none [...] the soon after discharge. 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 lan of [facility] - Anabel Nance RN - 0 6:20 [...] | | | POC | performed at [facility];[address] | | LABORATORY | | | | [address];[place] | | | | | | [address] | | | | + + + + + + + + | Specimen | + + | | + + + + + + + | Performing | Address | City/State/Zipcode | Phone Number | | Organization | | | | + + + + + | [facility] | [address] | [place] [address] | [phone] | + + + + + Troponin I (11/11/2019 5:37 AM PDT) + + + + + + | Component | Value | Ref Range | Performed | Pathologist | | | | | At | Signature | + + + + + + | Troponin I | 5.293 ()Comment: | 0.00 - 0.04 | [facility] | | | | 0.04 ng/mL or [...] | | | | | | BY LibertadCardREAD BACK RESULTS | | | | | | VERIFIEDTesting | | | | | | performed at [facility] | | | | | | [address];[place] | | | | | | [address] | | | | + + + + + + + + | Specimen | + + | Blood | + + + + + + + | Performing | Address | City/State/Zipcode | Phone Number | | Organization | | | | + + + + + | [facility] | [address] | [place] [address] | [phone] | + + + + + Comprehensive [...] | >60Comment: GFR <60: | >60 | [facility] | | | GFR | CHRONIC KIDNEY [...] | | | | | performed at [facility], [address] | | | | | | [facility], | | | | | | [place] [address] | | | | + + + + + + + + | Specimen | + + | Blood | + + + + + + + | Performing | Address | City/State/Zipcode | Phone Number | | Organization | | | | + + + + + | [facility] | [address] | [place] [address] | [phone] | + + + + + CBC [...] LABORATORY | | | | performed at [facility], [address] | | | | | [address], | | | | | | [place] [address] | | | | + + + + + + + + | Specimen | + + | Blood | + + + + + + + | Performing | Address | City/State/Zipcode | Phone Number | | Organization | | | | + + + + + | [facility] | [address] | [place] [address] | [phone] | + + + + + POC Glucose (11/10/2019 9:49 PM PDT) + + + + + + | Component | Value | Ref Range | Performed | Pathologist | | | | | At | Signature | + + + + + + | Glucose, | 139 (H)Comment: Testing | 65 - 99 mg/dL | [facility] | | | POC | performed at [facility];[address] | | LABORATORY | | | | [address];[place] | | | | | | [address] | | | | + + + + + + + + | Specimen | + + | | + + + + + + + | Performing | Address | City/State/Zipcode | Phone Number | | Organization | | | | + + + + + | [facility] | [address] | [place] [address] | [phone] | + + + + + POC [...] | | | POC | performed at [facility];[address] | | LABORATORY | | | | [address];[place], [place] | | | | | | [address] | | | | + + + + + + + + | Specimen | + + | | + + + + + + + | Performing | Address | City/State/Zipcode | Phone Number | | Organization | | | | + + + + + | [facility] | [address] | [place] [address] | [phone] | + + + + + POC [...] | | | POC | performed at [facility];[address] | | LABORATORY | | | | [address];[place] | | | | | | [address] | | | | + + + + + + + + | Specimen | + + | | + + + + + + + | Performing | Address | City/State/Zipcode | Phone Number | | Organization | | | | + + + + + | [facility] | [address] | [place] [address] | [phone] | + + + + + POC Glucose (11/10/2019 8:29 AM PDT) + + + + + + | Component | Value | Ref Range | Performed | Pathologist | | | | | At | Signature | + + + + + + | Glucose, | 147 (H)Comment: Testing | 65 - 99 mg/dL | [facility] | | | POC | performed at [facility];[address] | | LABORATORY | | | | [address];[place] | | | | | | [address] | | | | + + + + + + + + | Specimen | + + | | + + + + + + + | Performing | Address | City/State/Zipcode | Phone Number | | Organization | | | | + + + + + | [facility] | [address] | [place] [address] | [phone] | + + + + + ECHO [...] 8.194 ()Comment: | 0.00 - 0.04 | [facility] | | | | 0.04 ng/mL or [...] | | | | | | [place] | | | | | | 1305T,JBREAD BACK | | | | | | RESULTS VERIFIEDTesting | | | | | | performed at [facility];[address] | | | | | | [address];[place], [place] | | | | | | [address] | | | | + + + + + + + + | Specimen | + + | Blood | + + + + + + + | Performing | Address | City/State/Zipcode | Phone Number | | Organization | | | | + + + + + | [facility] | [address] | [place] [address] | [phone] | + + + + + Hemoglobin A1C (11/10/2019 5:30 AM PDT) + + + + + + | Component | Value | Ref Range | Performed | Pathologist | | | | | At | Signature | + + + + + + | Hemoglobin | 9.6 (H)Comment: | 4.8 - 5.6 % | [facility] | | | A1c | Prediabetes: 5.7 [...] [address], | | | | | | [place] [address], [facility] | | | | | | [address] | | | | + + + + + + + + | Specimen | + + | Blood | + + + + + + + | Performing | Address | City/State/Zipcode | Phone Number | | Organization | | | | + + + + + | [facility] | [address] | [place] [address] | [phone] | + + + + + Lipid Panel (11/10/2019 5:30 AM PDT) + + + + + + | Component | Value | Ref Range | Performed | Pathologist | | | | | At | Signature | + + + + + + | Cholesterol | 143 | <200 mg/dL | [facility] | | | | | | LABORATORY [...] | | | Calculated | performed at [facility], [address] | | LABORATORY | | | | [address], | | | | | | [place] [address] | | | | + + + + + + + + | Specimen | + + | Blood | + + + + + + + | Performing | Address | City/State/Zipcode | Phone Number | | Organization | | | | + + + + + | [facility] | [address] | [place] [address] | [phone] | + + + + + CBC [...] LABORATORY | | | | performed at [facility], [address] | | | | | [address], | | | | | | [place] [address] | | | | + + + + + + + + | Specimen | + + | Blood | + + + + + + + | Performing | Address | City/State/Zipcode | Phone Number | | Organization | | | | + + + + + | [facility] | [address] | [place] [address] | [phone] | + + + + + Basic [...] | | | | | performed at [facility], [address] | | | | | | [facility], | | | | | | [place] [address] | | | | + + + + + + + + | Specimen | + + | Blood | + + + + + + + | Performing | Address | City/State/Zipcode | Phone Number | | Organization | | | | + + + + + | [facility] | [address] | [place] [address] | [phone] | + + + + + CK Total (11/10/2019 5:30 AM PDT) + + + + + + | Component | Value | Ref Range | Performed | Pathologist | | | | | At | Signature | + + + + + + | CK TOTAL | 230Comment: Testing | 55 - 400 U/L | [facility] | | | | performed at [facility];[address] | | LABORATORY | | | | [address];[place], [place] | | | | | | [address] | | | | + + + + + + + + | Specimen | + + | Blood | + + + + + + + | Performing | Address | City/State/Zipcode | Phone Number | | Organization | | | | + + + + + | [facility] | [address] | [place] [address] | [phone] | + + + + + ECG [...] | | | | CRYSTAL LOWE MD ([id number]) on | | | | | | [...] Testing | 65 - 99 mg/dL | [facility] | | | POC | performed at [facility];[address] | | LABORATORY | | | | [address];[place] | | | | | | [address] | | | | + + + + + + + + | Specimen | + + | | + + + + + + + | Performing | Address | City/State/Zipcode | Phone Number | | Organization | | | | + + + + + | [facility] | [address] | [place] [address] | [phone] | + + + + + POC [...] | | | POC | performed at [facility];[address] | | LABORATORY | | | | [address];[place], [place] | | | | | | [address] | | | | + + + + + + + + | Specimen | + + | | + + + + + + + | Performing | Address | City/State/Zipcode | Phone Number | | Organization | | | | + + + + + | [facility] | [address] | [place] [address] | [phone] | + + + + + CV [...] | | angiography with left heart cath (48100.26) PCI of right coronary | | | artery during acute FL ([address] RC) Conscious sedation (physician | | | supervision) for 37 total minutes - (56595) + 0 (58366) Procedure | | | Summary Access site: [...] | | | Clotting | performed at [facility];[address] | seconds | LABORATORY | | | Time, POC | [address];[place] | | | | | | [address] | | | | + + + + + + + + | Specimen | + + | | + + + + + + + | Performing | Address | City/State/Zipcode | Phone Number | | Organization | | | | + + + + + | [facility] | [address] | [place] [address] | [phone] | + + + + + documented in this encounter Visit Diagnoses Not on filedocumented in this encounter Administered Medications + +--------+ [...] dose on Sue 11/09/19 at | | PM PDT | | [...] | | +---+---+ + +-------+ +--------+---+---+ | clopidogrel (PLAVIX) tablet | Given | 11/09/19 | 300 mg | | | | ONCE PRN, Starting Wed11/09/19 at | | 20 3:23 | | | | | 1523, Intra-op | | PM PDT | | | | + +-------+ +--------+---+---+ + +---+ | | | + +---+ | dextrose 10% (D10W) infusion | | | at 50 mL/hr, Intravenous, | | | CONTINUOUS PRN, hypoglycemia, | | | Starting Sue 11/09/19 at 1545, | | | Start [...] | | | + +---+ + +-------+ +---------+---+---+ | eptifibatide (INTEGRILIN) 2 | Given | 11/09/19 | 16,650 | | | | mg/mL injection ONCE PRN, | | 20 3:25 | mcg | | | | Starting Sue 11/09/19 at 1515, | | PM PDT | | | | | Intra-op | | | | | | + +-------+ +---------+---+---+ +-------+ +---------+---+---+ | Given | 11/09/19 | 16,650 | | | | | 20 3:15 | mcg | | | | | PM PDT | | | | +-------+ +---------+---+---+ +---+---+ | | | +---+---+ + +-------+ +--------+---+---+ | fentaNYL (PF) injection ONCE | Given | 11/09/19 | 50 mcg | | | | PRN, Starting Sue 11/09/19 at | | 20 2:56 | | | | | 1456, Intra-op | | PM PDT | | | | + +-------+ +--------+---+---+ +---+---+ | | | +---+---+ + +-------+ +--------+---+---+ | heparin 1,000 units/mL | Given | 11/09/19 | 5,000 | | | | injection ONCE PRN, Starting Sue | | 20 2:57 | Units | | | | 11/09/19 at 1457, Intra-op | | PM PDT | | | [...] | | +---+---+ + +-------+ +--------+---+---+ | iohexol (OMNIPAQUE 300) 300 | Given | 11/09/19 | 49 mLs | | | | mg/mL injection ONCE PRN, | | 20 3:04 | | | | | Starting Sue 11/09/19 at 1504, | | PM PDT | | | | | Intra-op | | | | | | + +-------+ +--------+---+---+ +---+---+ | | | +---+---+ + +-------+ +--------+---+---+ | iohexol (OMNIPAQUE 300) 300 | Given | 11/09/19 | 66 mLs | | | | mg/mL injection ONCE PRN, | | 20 3:19 | | | | | Starting Sue 11/09/19 at 1519, | | PM PDT | | | | | Intra-op | | | | | | + +-------+ +--------+---+---+ +---+---+ | | | +---+---+ + +-------+ +-------+---+---+ | lidocaine 1% injection ONCE | Given | 11/09/19 | 5 mLs | | | | PRN, Starting Sue 11/09/19 at | | 20 2:56 | | | | | 1456, Intra-op | | PM PDT | | | [...] | | +---+---+ + +-------+ +------+---+---+ | midazolam (VERSED) 1 mg/mL | Given | 11/09/19 | 1 mg | | | | injection ONCE PRN, Starting Sue | | 20 2:56 | | | | | 11/09/19 at 1456, Intra-op | | PM PDT | | | | + +-------+ +------+---+---+ +---+---+ | | | +---+---+ + +-------+ +---------+---+---+ | nitroglycerin injection ONCE | Given | 11/09/19 | 200 mcg | | | | PRN, Starting Sue 11/09/19 at | | 20 3:14 | | | | | 1457, Intra-op | | PM PDT | | | | + +-------+ +---------+---+---+ +-------+ +---------+---+---+ | Given | 11/09/19 | 200 mcg | | | | | 20 2:57 | | | | | | PM PDT | | | | +-------+ +---------+---+---+ +---+---+ | | | +---+---+ + +---------+ +---------+---+---+ | sodium chloride 0.9% (NS) bolus | New Bag | 11/09/19 | 500 mLs | | | | Administer over 2 Hours, | | 20 3:13 | | | | | CONTINUOUS PRN, Starting Sue | | PM PDT | | | | | 11/09/19 at 1504, Intra-op | | | | | | + +---------+ +---------+---+---+ +---------+ +---------+---+---+ | New Bag | 11/09/19 | 500 mLs | | | | | 20 3:04 | | | | | | PM PDT | | | | +---------+ +---------+---+---+ +---+---+ | | | +---+---+ + +-------+ +--------+---+---+ | verapamil injection ONCE PRN, | Given | 11/09/19 | 2.5 mg | | | | Starting Sue 11/09/19 at 1457, | | 20 2:57 | | | | | Intra-op | | PM PDT | | | | + +-------+ +--------+---+---+ +---+---+ | | | +---+---+ documented in this encounter"
--- OUTSIDE RECORDS SUMMARY | ~2020-02-21 | XMS | Encounter Summary ---
Demographics + + + | Address | [address] | | | [place] [address] | + + + | Home Phone | | + + + | Preferred Language | Unknown | + + + | Marital Status | Unknown | + + + | Latter Day Affiliation | Unknown | + + + | Race | White | + + + | Ethnic Group | Not or | + + + Author + + + | Author | [facility] | | | and [place] | + + + | Organization | [facility] | | | and [place] | + + + | Address | Unknown | + + + | Phone | Unavailable | + + + Support + + + + + | Name | Relationship | Address | Phone | + + + + + | Valerie Perales | ECON | [address] | | | | | [address] | | | | | [address] | | + + + + + Care Team Providers + +------+ + | Care Fusing Line Inspector Name | Role | Phone | + +------+ + | Domingo Justice PA-C | PCP | | + +------+ + Reason for Visit + + + | Reason | Comments | + + + | Follow-up | Discuss Cabg | + + + Encounter Details +--------+---------+ + + + | Date | Type | Department | Care Team | Description | +--------+---------+ + + + | 12/25/ | Office | [facility] | Gary Avery MD | Coronary artery | | 2019 | Visit | [facility] [place] | [address] | disease involving | | | | [address] | [place] [address] | [place] coronary | | | | [place], [place] | [phone] | artery of [place] | | | | [address] | | heart without angina | | | | [phone] | | pectoris (Primary | | | | | | Dx) | +--------+---------+ + + + Social History [...] + + + | Blood Pressure | 128/70 | 12/26/2019 9:34 AM | | | | | PDT | | + + + + + | Pulse | 68 | 12/26/2019 9:34 AM | | | | | PDT | | + + + + + | Temperature | 36.3 C (97.3 F) | 12/26/2019 9:34 AM | | | | | PDT | | + + + + + | Respiratory Rate | - | - | | + + + + + | Oxygen Saturation | 98% | 12/26/2019 9:34 AM | | | | | PDT | | + + + + + | Inhaled Oxygen | - | - | | | Concentration | | | | + + + + + | Weight | 90.9 kg (200 lb 6.4 | 12/26/2019 9:34 AM | | | | oz) | PDT | | + + + + + | Height | 182.9 cm (6') | 12/26/2019 9:34 AM | | | | | PDT | | + + + + + | Body Mass Index | 27.18 | 12/26/2019 9:34 AM | | | | | PDT [...] documented as of this encounter Progress Notes Gary Avery MD - 12/26/2019 9:45 AM PDT Date of visit: 12/26/2019 Primary Care Physician: Domingo Justice PA-C CHIEF COMPLAINT: Chief Complaint Patient presents with Follow-up Discuss Cabg HISTORY OF PRESENT ILLNESS: Miles Sylvester is a 64 y.o. gentleman who presented today for follow-up. "I cannot last all day". He denies chest pain or shortness of breath. He does not have an exercise program. He did not return back to work. He has been compliant with his medications. He was evaluated by Dr. Cr for bypass surgery. REVIEW OF SYSTEMS: Negative except for pertinent items noted in HPI. Review of Systems Constitutional: Negative for fatigue. HENT: Negative for nosebleeds. Eyes: Negative for visual disturbance. Respiratory: Negative for cough and shortness of breath. Cardiovascular: Negative for chest pain, palpitations and leg swelling. Gastrointestinal: Negative for nausea, vomiting, abdominal pain and blood in stool. Genitourinary: Negative for hematuria. Musculoskeletal: Negative for myalgias, back pain and arthralgias. Skin: Negative for color change. Neurological: Negative for dizziness, syncope and numbness. Hematological: Does not bruise/bleed easily. Psychiatric/Behavioral: The patient is not nervous/anxious. PHYSICAL EXAM: BP 128/70 | Pulse 68 | Temp 36.3 C (97.3 F) | Ht 1.829 m (6') | Wt 90.9 kg (200 lb 6.4 oz) | SpO2 98% | BMI 27.18 kg/m Constitutional: Well-developed. Neck: No JVD present. [...] cranial nerve deficit. Skin: Warm and dry. DATA: Blood tests: Lab Results Component Value Date WBC 8.39 11/11/2019 RBC 5.35 11/11/2019 HGB 15.7 11/11/2019 HCT 47.5 11/11/2019 PLT 329 11/11/2019 Lab Results Component Value Date NA 137 11/11/2019 K 4.5 11/11/2019 CL 104 11/11/2019 CO2 29 11/11/2019 ANIONGAP 9 11/11/2019 BUN 11 11/11/2019 EGFR >60 11/11/2019 Lab Results Component Value Date CHOL 143 11/10/2019 TRIG 148 11/10/2019 LDL 89 11/10/2019 No results found for: BNP, TSH, CRP No results found for: TOTEPI EKG: November 10, 2019, reviewed personally on November 10, 2019. Normal ECG. Sinus rhythm, heart rate 67. November 09, 2019, reviewed personally on November 09, 2019. Sinus rhythm, heart rate 70, normal axis, normal P wave and SD interval, inferior ST elevation. Last Echo: November [...] US: AAA screening: Lower extremity US: OTHERS: Plan ASSESSMENT & PLAN: Miles Sylvester is a 64 y.o. gentleman with the following medical conditions: 1. Hypertension 2. Diabetes, on oral hypoglycemic medications 3. Coronary artery disease November 09, 2019, inferior STEMI. Heart catheterization showed three-vessel disease. Eunice oplasty for the right AV groove artery with a Synergy 2.5 x 24 mm. 4. Stroke, 2013, full recovery 5. Current smoker, 1 pack every day. Presented today for follow-up feeling overall well. Blood pressure and heart rate are well controlled. He is on dual antiplatelet therapy. He is on high intensity statins. I went over his coronary anatomy. I showed him the pictures of the RCA before and after st enting. I showed him the pictures of the left circumflex artery stenosis and the LAD bifurc ating stenosis. We discussed options of bypass surgery and multiple angioplasties. I recommended bypass surgery as a preferred option. We discussed timing of bypass surgery. We discussed factors of increased risk of bleeding with dual antiplatelet therapy versus th e need of dual antiplatelet therapy after recent STEMI and recent placement of the stent. 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 Considering all factors, I thought that waiting 3 months after his recent STEMI which shoul d be appropriate. He can have his bypass surgery anytime after February 08. He needs to stop his clopidogrel 5 to 7 days before the bypass surgery. He needs to contin ue aspirin. He will resume clopidogrel after the bypass surgery whenever surgically accepted. Continue other medications. I have filled his work-related paperwork today. I will update Dr. Cr with the plan. No orders of the defined types were placed in this encounter. The following portions of the patient's history were reviewed and updated as appropriate: Allergies, current medications. Family history, past medical history, past social history, past surgical history. Problem list. Gary Avery MD 12/26/2019 documented in t his encounter Plan of Treatment Not on filedocumented as of this encounter Visit Diagnoses + + | Diagnosis | + + | Coronary artery disease involving [place] coronary artery of [place] heart without | | angina pectoris - Primary | + + documented in this encounter
--- OUTSIDE RECORDS SUMMARY | ~2020-02-21 | XMS | Encounter Summary ---
Demographics + + + | Address | [address] | | | [place] [address] | + + + | Home Phone | | + + + | Preferred Language | Unknown | + + + | Marital Status | Single | + + + | Evangelical Affiliation | NON | + + + | Race | White | + + + | Ethnic Group | Not or | + + + Author + + + | Author | [facility] | + + + | Organization | [facility] | + + + | Address | Unknown | + + + | Phone | Unavailable | + + + Support + + +---------+ + | Name | Relationship | Address | Phone | + + +---------+ + | Valerie Perales | ECON | Unknown | | + + +---------+ + Care Team Providers + +------+ + | Care Broadcast Correspondent Name | Role | Phone | + +------+ + | Forest Laurent MD | PCP | Unavailable | + +------+ + Reason for Visit + +--------+ + | Reason | Onset | Comments | | | Date | | + +--------+ + | Refill Request | 10/22/ | | | | 2011 | | + +--------+ + Encounter Details +--------+--------+ + + + | Date | Type | Department | Care Team | Description | +--------+--------+ + + + | 10/22/ | Refill | [facility] | Bear Urrutia RN | Refill Request | | 2011 | | [facility] | [address] | | | | | [facility] | [address] | | | | | [address] | [place], [place] | | | | | [place] | [address] | | | | | [facility], | | | | | | [place], [place] | | | | | | [address] | | | | | | [phone] | | | +--------+--------+ + + + Social History + + [...]
--- OUTSIDE RECORDS SUMMARY | ~2020-02-21 | XMS | Encounter Summary ---
Demographics + + + | Address | [address] [facility] [address] | | | [place] [address] | + + + | Home Phone | | + + + | Preferred Language | Unknown | + + + | Marital Status | Unknown | + + + | Pentecostal Affiliation | Unknown | + + + | Race | White | + + + | Ethnic Group | Not or | + + + Author + + + | Author | [facility] | | | and [place] | + + + | Organization | [facility] | | | and [place] | + + + | Address | Unknown | + + + | Phone | Unavailable | + + + Support + + + + + | Name | Relationship | Address | Phone | + + + + + | Valeriedileep Gamboawell | ECON | [address] | | | | | [place] | | | | | [address] | | + + + + + Care Team Providers + +------+ + | Care Licensed Embalmer Name | Role | Phone | + [...] | | | | | | | or[place]ar[place]ut | | | | | | | artery | | | | | | | Procedures | | | | | | | AR CABG, | | | | | | [...] + + + + | 02/13/ | Anesthesia | [facility] | Domingo Harley MD | | | 2020 | [facility] | [address] | | | | | OPER[address] | [place] [address] | | | | | [address] | [phone] | | | | | [place], [place] | | | | | | [address] | | | | | | [phone] | | | +--------+ + + + + Anesthesia Record + + + + + | Procedure Name | Responsible | Anesthesia Start | Anesthesia Stop Time | | | Anesthesiologist | Time | | + + + + + | CORONARY ARTERY | Domingo Harley MD | 02/14/20 0724 | 02/14/20 1233 | | BYPASS GRAFT (N/A | | | | | Chest) | | | | + + + + + +----+---+ + + | Da | T | Event | Comment | | te | i | | | | | m | | | | | e | | | +----+---+ + + | 09 | 0 | An Start | Reassessment prior to anesthesia induction/procedure. | | /2 | 7 | | | | 3/ | 2 | | | | 20 | 4 | | | | 20 | | | | +----+---+ + + | | 0 | Art Line | | | | 7 | Start | | | | 2 | | | | | 9 | | | +----+---+ + + | | 0 | An | | | | 7 | Induction | | | | 3 | | | | | 2 | | | +----+---+ + + | | 0 | Art Line | | | | 7 | Stop | | | | 3 | | | | | 3 | | | +----+---+ + + | | 0 | An | | | | 7 | Intubation | | | | 3 | | | | | 5 | | | +----+---+ + + | | 0 | CVC Start | | | | 7 | | | | | 4 | | | | | 0 | | | +----+---+ + + | | 0 | CVC Stop | | | | 7 | | | | | 4 | | | | | 5 | | | +----+---+ + + | | 0 | First | | | | 8 | Inc/Proc St | | | | 1 | | | | | 8 | | | +----+---+ + + | | 0 | Quick Note | Pulse ox to nose | | | 8 | | | | | 2 | | | | | 1 | | | +----+---+ + + | | 0 | An CV | | | | 9 | Bypass init | | | | 5 | | | | | 8 | | | +----+---+ + + | | 1 | An CV | | | | 1 | Bypass | | | | 1 | cease | | | | 9 | | | +----+---+ + + | | 1 | Quick Note | 650 cellm carloz. `1 unit blood taken and returned. | | | 2 | | | | | 1 | | | | | 9 | | | +----+---+ + + | | 1 | An Stop | Patient handed off to recovery nurse. | | | 3 | | | | | 3 | | | +----+---+ + + +------+ | Meds | +------+ + + + | Name | Total | + + + | ceFAZolin in dextrose IVPB 2 | 4 g | | g/100 mL | | + + + | midazolam 2 mg/mL | 2 mg | + + + | fentaNYL | 600 mcg | + + + | lidocaine 2% | 100 mg | + + + | etomidate | 20 mg | + + + | rocuronium | 100 mg | + + + | phenylephrine (bolus) | 300 mcg | + + + | phenylephrine (infusion) | 3,425 mcg | + + + | ePHEDrine (bolus) | 10 mg | + + + | EPINEPHrine (infusion) | 70 mcg | + + + | aminocaproic acid | 20 g | + + + | heparin | 40,000 Units | + + + | protamine | 400 mg | + + + | metoprolol | 2.5 mg | + + + | ondansetron | 4 mg | + + + | neostigmine | 4 mg | + + + | glycopyrrolate | 0.8 mg | + + + | NS (infusion) | 1,000 mL | + + + | NS (Infusion) | 1,000 mL | + + + + + | Name | + + | N2O Flow Rate (L/Min) | + + | O2 Flow Rate (L/Min) | + + | Insp O2 | + + | Exp N2O | + + | Exp ISO | + + | Air Flow Rate (L/Min) | + + + + | No blood administrations on file. | + + +--------+ + + + | Type | Details | Placement | Removal | +--------+ + + + | Wound | 02/14/20; 1056; Incision; Right; | 02/14/20 1056 by | | | | leg | Ramon Oliver RN | | +--------+ + + + | Wound | 02/14/20; 1056; Incision; chest; | 02/14/20 1056 by | | | | Prevena dressing appled to | Ramon Oliver RN | | | | sternum. | | | +--------+ + + + | Chest | 02/14/20; Dr. Cr; 1; Left:; | 02/14/20 0000 by | 02/17/20 1100 by | | Tube Y | pleural; 24 Fr.; 2; midline; | Ramon Oliver RN | Tod Danielson RN | | 1&2 | anterior; mediastinal; 28 Fr.; | | | | | 02/17/20; 1100 | | | +--------+ + + + | Periph | 02/14/20; 0715; Left; Hand; | 02/14/20 0715 by | 02/17/20 1735 by | | eral | [id number] catheter system; | Miesha Espinoza, | Erick Monsalve RN | | IV | 20 gauge; removed per | Boomboat Operator | | | | policy/procedure; 02/17/20; 1734 | | | +--------+ + + + | Arteri | 02/14/20; 07 (created via | 02/14/20728 by | 02/17/20 08 by | | al | procedure documentation); | Domingo Harley MD | Tod Danielson RN | | Line | Alcohol; awake; Left; radial | | | | | artery; 20 gauge; continuous | | | | | blood pressure monitoring; | | | | | intradermal injection; arm board, | | | | | secured with sutures, other (see | | | | | comments); other (see comments) | | | | | (removed during night coordinator); | | | | | 02/17/20; 0800 | | | +--------+ + + + | CVC | 02/14/20; 07 (created via | 02/14/20 07 by | 02/17/20 1100 by | | Double | procedure documentation); | Domingo Harley MD | Tod Danielson RN | | Lumen | Chlorhexidine/Isopropyl Alcohol; | | | | | Yes; All; OR; Monitoring Tech; Domingo Galvan | | | | | MD Cricket; New indication for | | | | | central line (e.g., hemodynamic | | | | | monitoring, fluid/medication | | | | | administration, etc.); internal | | | | | jugular vein, right; under GA; 9 | | | | | Fr; ultrasound guided; all ports | | | | | aspirated blood; 02/17/20; 1100 | | | +--------+ + + + | Urethr | 02/14/20; 0747; indicated due to | 02/14/20 0747 by | 02/15/20 1700 by | | al | specific surgical procedure; | Ramon Oliver RN | Theresa Garcia RN | | Cathet | Perineum cleaned, Second person | | | | er | present; All elements; Bag | | | | | positioned below the bladder, | | | | | System checked to verify closed | | | | | connections & no dependent loops, | | | | | obstructions/kinks; indwelling | | | | | catheter with core temperature | | | | | probe; 100% silicone; 16; None; | | | | | 1; 10; 10; none; (Pt under | | | | | general anesthesia during | | | | | placement. ); drainage bag to | | | | | dependent drainage; 02/15/20; | | | | | 1700 | | | +--------+ + + + | Airway | Placement Date: 02/14/20; | 02/14/20840 by | 02/14/20 1608 by | | | Placement Time: 840 (created via | Domingo Harley MD | Miguel Craven, | | | procedure documentation); Mask | | RN | | | Ventilation: EZ w/OA; Airway | | | | | Grade: 1; Successful Technique: | | | | | Mac; Laryngoscope Blade Size: 3; | | | | | Attempts: 1; Airway Type: | | | | | endotracheal; Size: 8; Trauma: | | | | | none; Other Equipment: stylette; | | | | | Placement Check: exhaled CO2 | | | | | detection device, bilateral chest | | | | | rise; Removal: per order, per | | | | | protocol, removed by RT; Removal | | | | | Date: 02/14/20; Removal Time: | | | | | 1608 | | | +--------+ + + + | NG/OG | 02/14/20; 0900; orogastric; | 02/14/20 0900 by | 02/14/20 1608 by | | | center mouth; tubing intact; | Miguel Craven, | Miguel Craven, | | | 02/14/20; 1608 | RN | RN | +--------+ + + + | Chest | 02/14/20; 1153; Cr; 1; | 02/14/20 1153 by | 02/17/20 1101 by | | Tube Y | Left:; anterior; 2; Right:; | Fritz Goldstein, | Tod Danielson, RN | | 1&2 | anterior; 02/17/20; 1101 | RN | | +--------+ + + + documented in this encounter Social History + +-------+ +--------+ + | [...] + + documented as of this encounter OR Notes Anesthesia Postprocedure Evaluation - Domingo Harley MD - 02/16/2020 6:45 PM Tati hernandez of this note might be different from the original. ANESTHESIA POSTANESTHESIA EVALUATION Miles Sylvester 64 y.o. male 1955 [id number] Procedure(s) CORONARY ARTERY BYPASS GRAFT (N/A Chest) Cooperates? Yes Mental Status Performs simple tasks. Respiratory Satisfactory - Airway patent (self maintained). Cardiovascular Satisfactory - Blood pressure and heart rate acceptable Temperature Satisfactory Pain Satisfactory N/V Control Satisfactory Hydration Satisfactory - No signs of dehydration Adverse Events ADVERSE EVENTS: No adverse events No recall no ARC. Vitals Value Taken Time Temp 37.2 C (99 F) 02/16/20 1600 Pulse 82 02/16/20 1843 Resp 20 02/16/20 1600 BP 102/57 02/16/20 1841 Arterial Line BP 116/46 02/16/20 1843 Arterial Line BP 2 SpO2 92 % 02/16/20 1843 Vitals shown include unvalidated device data. Electronically signed by Domingo Harley MD 02/16/2020 6:45 PM PDT [facility] nesthesia Postprocedure Evaluation - Domingo Harley MD - 02/14/2020 12:35 PM P DT ANESTHESIA POSTANESTHESIA EVALUATION Miles Ryan Higinio Vargas. 64 y.o. male 1955 [id number] Procedure(s) CORONARY ARTERY BYPASS GRAFT (N/A Chest) Cooperates? No, patient has been or will be intubated for greater than 48hrs after anesthe danilo. Mental Status Sedated Respiratory Satisfactory - Airway patent (self maintained). Cardiovascular Satisfactory - Blood pressure and heart rate acceptable Temperature Satisfactory Pain Satisfactory N/V Control Satisfactory Hydration Satisfactory - No signs of dehydration Adverse Events ADVERSE EVENTS: No adverse events Vitals Value Taken Time Temp Pulse 89 02/14/20 1233 Resp 17 02/14/20 1233 BP Arterial Line BP 108/50 02/14/20 1233 Arterial Line BP 2 SpO2 100 % 02/14/20 1233 Vitals shown include unvalidated device data. Electronically signed by Domingo Harley MD 02/14/2020 12:35 PM PDT [facility] nesthesia Procedure Notes - Domingo Harley MD - 02/14/2020 8:41 AM PDTAssocia missael Order(s): CVCCentral Venous Line Placement 02/14/2020 7:40 AM Indication: intravenous access Insertion reason: new indication for central line Prep solution: chlorhexidine/isoproplyl alcohol Preparation: central line kit used Sterile barriers used: all Patient was: under GA Vein: right internal jugular Size: 9 Fr Number of Lumens: double lumen Localizaton technique: ultrasound Port patency: all ports flushed Placement verification: ultrasound visualization of wire in vein Securement: transparent dressing, dressing per hospital protocol and sutures Complications: no complications noted at this time Person recording: cotton dispatcher Performed by: Domingo Harley MD Authorizing providerDomingo Harley MD Location performed: [place] Please see intraoperative grid for any additional medication documentation. nesthesia Procedure N Domingo Borjas MD - 02/14/2020 8:41 AM PDTAssociated Order(s): ALineArterial Line P lacement 02/14/2020 7:29 AM Indication: continuous blood pressure monitoring Prep solution: alcohol Patient was: awake Pain prevention: 1% lidocaine infiltration Laterality: left Artery:radial Size: 20 g Securement: transparent dressing, tape, arm board and sutures Performed by: Domingo Harley MD Authorizing provider: Domingo Harley MD Please see intraoperative grid for any additional medication documentation. nesthesia Procedure N Domingo Borjas MD - 02/14/2020 8:41 AM PDTAssociated Order(s): AirwayAnesthesia Air way Placement Preprocedure check: patient identified, oxygen, airway assessed, patient reassessment prior to induction, airway equipment checked and suction Rapid Sequence Induction: no Mask ventilation: easy with oral airway External maneuver: ramp position Successful technique: Mac Laryngoscope blade size: 3 Airway grade: 1 (Full view of glottis) Other equipment: stylette Attempts: 1 Airway type: endotracheal Size: 8 Cuffed: cuffed Route, reference point: teeth/lips Tube secured with: adhesive tape Trauma: none Tube placement verification: bilateral chest rise and carbon dioxide detection Performing provider: Domingo Harley MD Authorizing provider: Domingo Harley MD Please see intraoperative grid for any additional medication documentation. nesthesia Preprocedur e Urban - Domingo Harley MD - 02/14/2020 6:59 AM PDT ANESTHESIA PREANESTHESIA EVALUATION Miles Sylvester Jr. 64 y.o. male 1955 [id number] Procedure(s): CORONARY ARTERY BYPASS GRAFT (N/A Chest) Medical,anesthesia, drug, allergy histories reviewed, NPO status verified. ECG reviewed. (+) perioperative beta-manju/statin given/taken. Review of Systems / Med History Anesthesia History The patient is 64 y.o. male with significant past medical history of HT N, DM and ongoing tobacco abuse (40 pack year history) admitted on 11/09/19 with chest pain. He was diagnosed with an acute inferior wall myocardial and underwent PCI and stenting of th e RPDA branch. The patient has significant residual disease with a marisela grade proximal LAD lesion at a diagonal bifurcation and disease in the circumflex system. Patient has been on p lavix therapy. He now presents for consideration of surgical revascularization. . No anesthesia complications except where noted below. (+) previous surgery or anesthesia.(-) PONV, difficult intubation, motion sickness. Family Anesthesia History (-) family history of PONV. Cardiovascular Left Ventricle Normal size left ventricle. There is mild diffuse increased left ventricular wall thickness. Normal left ventricular systolic function by visual assessment. The left ventricular ejection fraction is 60%. Moderate hypokinesia of the basal to mid inferolateral wall and basal inferior wall. There is normal left ventricular diastolic function. Right Ventricle Normal size right ventricle. Left Atrium Normal size left atrium. Right Atrium Normal size right atrium. Interatrial Septum The interatrial septum is normal. Aortic Valve The aortic valve appears tricuspid. There is mild focal calcification of the aortic valve. No aortic stenosis. No aortic regurgitation. Mitral Valve There is mild thickening of the mitral valve. No mitral stenosis. No mitral regurgitation. Tricuspid Valve Normal tricuspid valve structure. Trace tricuspid regurgitation. Pulmonic Valve Normal pulmonic valve structure. Trace pulmonic regurgitation. Great Vessels Normal size aortic root. Normal size ascending aorta. The aortic arch is not well visualized. IVC/SVC The IVC diameter is >21 mm with a >50% collapse with inspiration suggesting a ri ght atrial pressure of 8 mmHg. Right Sided Pressures The right atrial pressure is intermediate. Unable to assess pulmonary artery systolic pressure. Pericardium Normal pericardium without effusion. DATA Cath 11/09/19 Coronary Findings Diagnostic Dominance: [...] lesion. The comple xity is high/c. Intervention . Negative except where noted below. Exercise tolerance >4 METS (+) coronary artery disease. (+) PVD: . Pulmonary (-) shortness of breath, supplemental oxygen, recent URI.(-) asthma.(+) tobacco use. Endocrine (+) obesity: (+) Diabetes: Hematology/Other Negative except where noted below.(-) anemia. (-) coagulopathy. Cancer Negative except where noted below. Obstetrics Negative except where noted below. Neuromuscular No residual cva. Negative except where noted below. (+) CVA. Psychology (-) substance abuse. Physical Exam Airway MP I, TM >3 FB, Mouth opening >2 FB. Neck: full ROM, extends >30 degrees. Jaw protrusi on normal. Facial hair present: No Dental grossly normal except where noted below. CV Rhythm regular. Rate normal. (-) murmur and carotid bruit. Pulm Clear to auscultation bilaterally. Neuro grossly normal. Anesthesia Plan ASA: 4 Type: General. Induction: Intravenous. Potential problems: None anticipated. Monitors: Standard ASA monitors. Arterial line, CVC and JOHN to aid in hemodynamic monitoring. Consent statement: Anesthetic plan, alternatives, risks and benefits discussed with patient and significant ot her. , discussed risks to teeth, ICU placement, pain, perioperative CV events, post-op intubation, sore throat, stroke Consenting person understands and agrees to proceed. Electronically Signed by: Domingo Harley MD ESig date/time: 02/14/2020 6:59 AM PDT documented in this enc ounter Miscellaneous Notes Addendum Note - Domingo Harley MD - 02/16/2020 6:46 PM PDTFormatting of this note might b e different from the original. Addendum created 02/16/201845 by Domingo Harley MD Clinical Note Signed nesthesia Post-op Ortega ndoff - Domingo Harley MD - 02/14/2020 12:33 PM PDTFormatting of this note might be differe nt from the original. ANESTHESIA HANDOFF NOTE Miles Menakishan Sylvester Jr. 64 y.o. male 1955 [id number] CORONARY ARTERY BYPASS GRAFT (N/A Chest) HANDOFF NOTE Handoff Protocol Used: post-procedure handoff checklist completed The following were completed during the transfer of care: 1. Identification of patient 2. Identification of responsible practitioner (primary service) 3. Discussion of pertinent medical history 4. Discussion of the surgical/procedure course (procedure, reason for surgery, procedure pe rformed) 5. Intraoperative anesthetic management and issues/concerns 6. Expectations/plans for the early post-procedure period 7. Opportunity for questions and acknowledgement of understanding of report from receiving team Patient Location: ICU Condition: sedated Airway/O2: endotracheal tube with O2 The significant anesthesia concerns and VS in Epic were reviewed with the receiving team. Domingo Harley MD 02/14/2020 12:33 PM PDT [facility] documented in this encounter Plan of Treatment Not on filedocumented as of this encounter Procedures + +--------+ + + + | Procedure Name | Priori | Date/Time | Associated Diagnosis | Comments | | | ty | | | | + +--------+ + + + | ANE CENTRAL VENOUS | Routin | 02/14/2020 | | Results for this | | NOTE | e | 8:41 AM | | procedure are in the | | | | PDT | | results section. | + +--------+ + + + | ANE ARTERIAL LINE | Routin | 02/14/2020 | | Results for this | | NOTE | e | 8:41 AM | | procedure are in the | | | | PDT | | results section. | + +--------+ + + + | ANE AIRWAY NOTE | Routin | 02/14/2020 | | Results for this | | | e | 8:41 AM | | procedure are in the | | | | PDT | | results section. | + +--------+ + + + documented in this encounter Results CVC (02/14/2020 8:41 AM PDT) + + + | Narrative | Performed At | + + + | Domingo Harley MD 02/14/2020 8:41 AM Central Venous Line | | | Placement 02/14/2020 7:40 AM Indication: intravenous access | | | Insertion reason: new indication for central line Prep solution: | | | chlorhexidine/isoproplyl alcohol Preparation: central line kit used | | | Sterile barriers used: all Patient was: under GA Vein: right | | | internal jugular Size: 9 Fr Number of Lumens: double lumen | | | Localizaton technique: ultrasound Port patency: all ports flushed | | | Placement verification: ultrasound visualization of wire in vein | | | Securement: transparent dressing, dressing per hospital protocol and | | | sutures Complications: no complications noted at this time Person | | | recording: cotton dispatcher Performed by: Domingo Harley MD Authorizing | | | Janine Harley MD Location performed: OR Please see | | | intraoperative grid for any additional medication documentation. | | + + + Jenn (02/14/2020 8:41 AM PDT) + + + | Narrative | Performed At | + + + | Domingo Harley MD 02/14/2020 8:41 AM Arterial Line Placement | | | 02/14/2020 7:29 AM Indication: continuous blood pressure | | | monitoring Prep solution: alcohol Patient was: awake Pain | | | prevention: 1% lidocaine infiltration Laterality: left Artery:radial | | | Size: 20 g Securement: transparent dressing, tape, arm board and | | | sutures Performed by: Domingo Harley MD Authorizing provider: Domingo Harley MD Please see intraoperative grid for any additional | | | medication documentation. | | + + + Airway (02/14/2020 8:41 AM PDT) + + + | Narrative | Performed At | + + + | Domingo Harley MD 02/14/2020 8:41 AM Anesthesia Airway | | | Placement Preprocedure check: patient identified, oxygen, airway | | | assessed, patient reassessment prior to induction, airway equipment | | | checked and suction Rapid Sequence Induction: no Mask ventilation: | | | easy with oral airway External maneuver: ramp position Successful | | | technique: Mac Laryngoscope blade size: 3 Airway grade: 1 (Full | | | view of glottis) Other equipment: stylette Attempts: 1 Airway type: | | | endotracheal Size: 8 Cuffed: cuffed Route, reference point: | | | teeth/lips Tube secured with: adhesive tape Trauma: none Tube | | | placement verification: bilateral chest rise and carbon dioxide | | | detection Performing provider: Domingo Harley MD Authorizing | | | provider: Domingo Harley MD Please see intraoperative grid | | | for any additional medication documentation. | | + + + documented in this encounter Visit Diagnoses Not on filedocumented in this encounter Administered Medications + +--------+ +------+------+------+ | Medication Order | MAR | Action | Dose | Rate | Site | | | Action | Date | | | | + +--------+ +------+------+------+ | aminocaproic acid (AMICAR) | Given | 02/14/20 | 10 g | | | | injection Intravenous, PRN, | | 20 11:28 | | | | | Starting 02/14/20 at 0924, | | AM PDT | | | | | Anesthesia Intra-op | | | | | | + +--------+ +------+------+------+ +-------+ +------+---+---+ | Given | 02/14/20 | 10 g | | | | | 20 9:24 | | | | | | AM PDT | | | | +-------+ +------+---+---+ +---+---+ | | | +---+---+ + +-------+ +-----+---+---+ | ceFAZolin in dextrose (ANCEF) | Given | 02/14/20 | 2 g | | | | IVPB Intravenous, Administer | | 20 11:45 | | | | | over 30 Minutes, PRN, Starting | | AM PDT | | | | | 02/14/20 at 0806, Anesthesia | | | | | | | Intra-op | | | | | | + +-------+ +-----+---+---+ +-------+ +-----+---+---+ | Given | 02/14/20 | 2 g | | | | | 20 8:06 | | | | | | AM PDT | | | | +-------+ +-----+---+---+ +---+---+ | | | +---+---+ + +-------+ +-------+---+---+ | ePHEDrine 5 mg/mL injection | Given | 02/14/20 | 10 mg | | | | Intravenous, PRN, Starting Wed | | 20 8:50 | | | | | 02/14/20 at 0850, Anesthesia | | AM PDT | | | | | Intra-op | | | | | | + +-------+ +-------+---+---+ +---+---+ | | | +---+---+ + +---------+ +---------+-------+---+ | EPINEPHrine 1 mg/mL injection | New Bag | 02/14/20 | 2 | 0.1 | | | Intravenous, CONTINUOUS PRN, | | 20 11:13 | mcg/min | mL/hr | | | Starting 02/14/20 at 1113, | | AM PDT | | | | | Anesthesia Intra-op | | | | | | + +---------+ +---------+-------+---+ +---+---+ | | | +---+---+ + +-------+ +-------+---+---+ | etomidate (AMIDATE) injection | Given | 02/14/20 | 20 mg | | | | Intravenous, PRN, Starting Wed | | 20 7:32 | | | | | 02/14/20 at 0732, Anesthesia | | AM PDT | | | | | Intra-op | | | | | | + +-------+ +-------+---+---+ +---+---+ | | | +---+---+ + +-------+ +---------+---+---+ | fentaNYL (PF) injection | Given | 02/14/20 | 100 mcg | | | | Intravenous, PRN, Starting Wed | | 20 12:21 | | | | | 02/14/20 at 0838, Anesthesia | | PM PDT | | | | | Intra-op | | | | | | + +-------+ +---------+---+---+ +-------+ +---------+---+---+ | Given | 02/14/20 | 250 mcg | | | | | 20 8:38 | | | | | | AM PDT | | | | +-------+ +---------+---+---+ | Given | 02/14/20 | 250 mcg | | | | | 20 7:32 | | | | | | AM PDT | | | | +-------+ +---------+---+---+ +---+---+ | | | +---+---+ + +-------+ +--------+---+---+ | glycopyrrolate (OREN) | Given | 02/14/20 | 0.8 mg | | | | injection Intravenous, PRN, | | 20 12:11 | | | | | Starting Wed02/14/20 at 1211, | | PM PDT | | | | | Anesthesia Intra-op | | | | | | + +-------+ +--------+---+---+ +---+---+ | | | +---+---+ + +-------+ +---------+---+---+ | heparin 1,000 units/mL | Given | 02/14/20 | 10,000 | | | | injection Intravenous, PRN, | | 20 9:39 | Units | | | | Starting Wed02/14/20 at 0818, | | AM PDT | | | | | Anesthesia Intra-op | | | | | | + +-------+ +---------+---+---+ +-------+ +---------+---+---+ | Given | 02/14/20 | 27,000 | | | | | 20 9:19 | Units | | | | | AM PDT | | | | +-------+ +---------+---+---+ | Given | 02/14/20 | 3,000 | | | | | 20 8:18 | Units | | | | | AM PDT | | | | +-------+ +---------+---+---+ +---+---+ | | | +---+---+ + +-------+ +--------+---+---+ | lidocaine (PF) 2% injection | Given | 02/14/20 | 100 mg | | | | Intravenous, PRN, Starting Wed | | 20 7:32 | | | | | 02/14/20 at 0732, Anesthesia | | AM PDT | | | | | Intra-op | | | | | | + +-------+ +--------+---+---+ +---+---+ | | | +---+---+ + +-------+ +--------+---+---+ | metoprolol tartrate (LOPRESSOR) | Given | 02/14/20 | 2.5 mg | | | | injection Intravenous, PRN, | | 20 7:32 | | | | | Starting 02/14/20 at 0844, | | AM PDT | | | | | Anesthesia Intra-op | | | | | | + +-------+ +--------+---+---+ +---+---+ | | | +---+---+ + +-------+ +------+---+---+ | midazolam (VERSED) 1 mg/mL | Given | 02/14/20 | 2 mg | | | | injection Intravenous, PRN, | | 20 7:24 | | | | | Starting 02/14/20 at 0724, | | AM PDT | | | | | Anesthesia Intra-op | | | | | | + +-------+ +------+---+---+ +---+---+ | | | +---+---+ + +-------+ +------+---+---+ | neostigmine 1 mg/mL injection | Given | 02/14/20 | 4 mg | | | | Intravenous, PRN, Starting Wed | | 20 12:14 | | | | | 02/14/20 at 1214, Anesthesia | | PM PDT | | | | | Intra-op | | | | | | + +-------+ +------+---+---+ +---+---+ | | | +---+---+ + +-------+ +------+---+---+ | ondansetron (ZOFRAN) injection | Given | 02/14/20 | 4 mg | | | | Intravenous, PRN, Starting Wed | | 20 7:32 | | | | | 02/14/20 at 0732, Anesthesia | | AM PDT | | | | | Intra-op | | | | | | + +-------+ +------+---+---+ +---+---+ | | | +---+---+ + + + +---------+-------+---+ | phenylephrine (JESSICA-SYNEPHRINE, | Restarte | 02/14/20 | 25 | 0.2 | | | VAZCULEP) 10 mg per mL injection | d | 20 11:13 | mcg/min | mL/hr | | | Intravenous, CONTINUOUS PRN, | | AM PDT | | | | | Starting 02/14/20 at 0819, | | | | | | | Anesthesia Intra-op | | | | | | + + + +---------+-------+---+ +---------+ +---------+-------+---+ | New Bag | 02/14/20 | 25 | 0.2 | | | | 20 8:19 | mcg/min | mL/hr | | | | AM PDT | | | | +---------+ +---------+-------+---+ +---+---+ | | | +---+---+ + +-------+ +---------+---+---+ | phenylephrine (JESSICA-SYNEPHRINE, | Given | 02/14/20 | 100 mcg | | | | VAZCULEP) 10 mg per mL injection | | 20 9:48 | | | | | Intravenous, PRN, Starting Wed | | AM PDT | | | | | 02/14/20 at 0820, Anesthesia | | | | | | | Intra-op | | | | | | + +-------+ +---------+---+---+ +-------+ +---------+---+---+ | Given | 02/14/20 | 100 mcg | | | | | 20 9:47 | | | | | | AM PDT | | | | +-------+ +---------+---+---+ | Given | 02/14/20 | 100 mcg | | | | | 20 8:20 | | | | | | AM PDT | | | | +-------+ +---------+---+---+ +---+---+ | | | +---+---+ + +-------+ +--------+---+---+ | protamine injection | Given | 02/14/20 | 400 mg | | | | Intravenous, PRN, Starting Wed | | 20 11:21 | | | | | 02/14/20 at 1121, Anesthesia | | AM PDT | | | | | Intra-op | | | | | | + +-------+ +--------+---+---+ +---+---+ | | | +---+---+ + +-------+ +--------+---+---+ | rocuronium (ZEMURON) injection | Given | 02/14/20 | 100 mg | | | | Intravenous, PRN, Starting Wed | | 20 7:32 | | | | | 02/14/20 at 0732, Anesthesia | | AM PDT | | | | | Intra-op | | | | | | + +-------+ +--------+---+---+ +---+---+ | | | +---+---+ + + + +---+---+---+ | sodium chloride 0.9% (NS) | Restarte | 02/14/20 | | | | | infusion Intravenous, CONTINUOUS | d | 20 11:13 | | | | | PRN, Starting 02/14/20 at | | AM PDT | | | | | 0724, Anesthesia Intra-op | | | | | | + + + +---+---+---+ +---------+ +---+---+---+ | New Bag | 02/14/20 | | | | | | 20 7:24 | | | | | | AM PDT | | | | +---------+ +---+---+---+ +---+---+ | | | +---+---+ + + + +---+---+---+ | sodium chloride 0.9% (NS) | Restarte | 02/14/20 | | | | | infusion Intravenous, CONTINUOUS | d | 20 11:13 | | | | | PRN, Starting 02/14/20 at | | AM PDT | | | | | 0724, Anesthesia Intra-op | | | | | | + + + +---+---+---+ +---------+ +---+---+---+ | New Bag | 02/14/20 | | | | | | 20 7:24 | | | | | | AM PDT | | | | +---------+ +---+---+---+ +---+---+ | | | +---+---+ documented in this encounter"
--- OUTSIDE RECORDS SUMMARY | ~2020-02-21 | XMS | Encounter Summary ---
Demographics + + + | Address | [address] | | | [place] [address] | + + + | Home Phone | | + + + | Preferred Language | Unknown | + + + | Marital Status | Single | + + + | Temple Affiliation | NON | + + + | Race | White | + + + | Ethnic Group | Not or | + + + Author + + + | Author | [facility] | + + + | Organization | [facility] | + + + | Address | Unknown | + + + | Phone | Unavailable | + + + Support + + +---------+ + | Name | Relationship | Address | Phone | + + +---------+ + | Valerie Perales | ECON | Unknown | | + + +---------+ + Care Team Providers + +------+ + | Care Technical Analyst Name | Role | Phone | + +------+ + | Stella Cuevas PA-C | PCP | | + +------+ + Reason for Visit + + + | Reason | Comments | + + + | Examination Of Skin | Miles is here today for a skin check with some concerning areas. | | | KENDY Bethea | + + + Consultation (Routine) +--------+ + + + + + | Status | Reason | Specialty | Diagnoses / | Referred By | Referred To | | | | | Procedures | Contact | Contact | +--------+ + + + + + | Closed | Specialty | Dermatology | Diagnoses | Mason, | Karen | | | Keren | | Other | Stella Galvan, | Analisa Solis MD | | | Required | | seborrheic | PA-C | [address] | | | | | keratosis | [place] | [facility] | | | | | | [facility] | [place], [place] | | | | | | Urgent Care | [address] | | | | | | [address] | | | | | | | [address] | | | | | | | [place], | | | | | | | [place] [address] | | | | | | | Phone: | | | | | | | [phone] | | | | | | | Fax: | | | | | | | [phone] | | +--------+ + + + + + Encounter Details +--------+---------+ + + + | Date | Type | Department | Care Team | Description | +--------+---------+ + + + | 04/07/ | Office | Dermatology at | Analisa Jones | Neoplasm of | | 2016 | Visit | Melania Velasquez | MD Will | uncertain behavior | | | | Clinic [address] | | of skin (Primary | | | | [address] [place] | | Dx); Seborrheic | | | | [address] | | keratoses | | | | [phone] | | | +--------+---------+ + + + Social History + + [...] + + + | Blood Pressure | 120/72 | 04/07/2016 1:36 PM | | | | | PST | | + + + + + | Pulse | - | - | | + + + + + | Temperature | - | - | | + + + + + | Respiratory Rate | - | - | | + + + + + | Oxygen Saturation | - | - | | + + + + + | Inhaled Oxygen | - | - | | | Concentration | | | | + + + + + | Weight | 101.1 kg (222 lb | 04/07/2016 1:36 PM | | | | 12.8 oz) | PST | | + + + + + | Height | 182.9 cm (6') | 04/07/2016 1:36 PM | | | | | PST | | + + + + + | Body Mass Index | 30.22 | 04/07/2016 1:36 PM | | | | | PST | | + + + + + documented in this encounter Patient Instructions Patient Instructions Shanta Lilly MA - 04/07/2016 1:30 PM [facility] Dermatology BIOPSY WOUND CARE INSTRUCTIONS General Care Wound healing is most rapid if the area is kept moist with ointment and covered so that a s cab is not able to form. To help this occur: ? Please remove the bandage on the day following your procedure. ? Wash gently with a mild soap and water (in the shower is fine) ? If you have any crusts or pus, you may gently remove with a Q-tip or gauze and hydrogen p eroxide to keep it clean. ? Spread a thin layer of Vaseline ointment on the wound and then cover with a fresh bandage . Continue this routine until the area heals. You will know the area is healed when it is no longer moist or makes a scab. It will still be pink. This may take up to several weeks. ? If you have stitches, they should be removed in 7-10 days. If you are uncertain of when t o return for suture removal, please call the clinic. ? Pain is rare, but if present, try an [id number] pain medication such as Tylenol tyrone ry four hours. If you are having a great deal of pain from the wound, please contact the cli andrew. Complications ? If bleeding occurs, apply firm pressure directly over the wound for 15 minutes. Time your self with a clock, as this can feel like a long time. If it is still bleeding, please contac t the clinic. ? Expect the area to become more red and tender during the first 48 hours after the procedu re. This will gradually improve and is part5 of normal wound healing. Infection is rare comp lication. If it occurs, it begins several days after the procedure. The area will become inc reasingly red, swollen and tender instead of slowly improving. Please contact the clinic if you think you may have an infection. Biopsy Results ? It usually takes 1-2 weeks to be notified of biopsy results. ? If you have not heard about your results within two weeks and would like to know the resu lts, please call the clinic and we will assist you. If you have any questions, please contact the clinic at [phone] Please note: In addition to your visit charges, you or your insurance company may be billed. It usually takes 1-2 weeks to be notified of biopsy results. For dermatopathology services by Naveed Rojas MD billed through [facility] A fee from an outside laboratory where tissue is processed onto microscopic slides. documented in this encounter Progress Notes Shanta Lilly MA - 04/07/2016 1:30 PM PST Analisa Benedict MD - 04/07/2016 1:30 PM PST DERMATOLOGY NEW PATIENT VISIT CHIEF COMPLAINT: Examination Of Skin PCP: Stella Cuevas PA-C HISTORY OF PRESENT ILLNESS: Miles Sylvester is a 61 y.o. male who presents for evaluation of Examination Of Skin. Today he c/o a spot on the R jew. Present for years. It is asymptomatic. Also has a sore, tender spot on the back x several months. It is painful and easily traumatized. Lastly has a bump on the L 4th finger. Present for years. He files it down. It is painful if he snags i t. It does not bleed. Denies any other new, changing or concerning skin lesions. Denies any other skin complaints. Has a family h/o melanoma in his mother. He grew up in [place], [place]. They have no history of tanning bed use, history of serious s unburns. Outdoor hobbies and interests include: boating, mowing lawn. 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 He does not use sunscreens and protective clothing, and does not examine his skin regularly. The patient's dermatology intake form was reviewed, signed, and dated. His relevant PMH, F H, and SH includes: PAST MEDICAL HISTORY: HTN DM GERD DLD PAST SURGICAL HISTORY: No past surgical history on file. FAMILY HISTORY: Family History: Mother with h/o melanoma SOCIAL HISTORY: Patient reports that he has been smoking Cigarettes. He has a 4.00 pack-year smoking hist ory. He has never used smokeless tobacco. He reports that he drinks alcohol. He reports that he does not use illicit drugs. MEDICATIONS: Current Medication List Name Sig CLOPIDOGREL 75 MG TABLET Take 1 Tab by mouth once daily. LISINOPRIL 10 MG TABLET Take 1 Tab by mouth once daily. METFORMIN 500 MG TABLET RANITIDINE 150 MG TABLET Take 1 Tab by mouth two times daily. SIMVASTATIN 20 MG TABLET Take 1 Tab by mouth once daily in the evening. ALLERGIES: No Known Allergies REVIEW OF SYSTEMS: Please see HPI and PMH. In addition, he denies fever, chills, sweats, weight loss or loss of appetite, and has no further skin complaints. PHYSICAL EXAMINATION: There were no vitals taken for this visit. Well-developed, well-nourished male in no acute distress. Awake, alert and oriented. Plea julianna and cooperative mood. A skin examination was performed including the scalp, face, eyelids, ears, lips, neck, ches t, back, abdomen, buttocks, bilateral arms and legs, bilateral hands and feet, and nails. F indings were within normal limits except for the following: --red hair, extensive actinic damage --scattered stuck on ndiaye plaques with pseudocysts on the R jew, back, lower legs --Left neck anterior: 3mm black macule --Left neck posterior: 1.2cm shiny plaque --Left back: 8mm peduculated papule --Left fourth finger: 1cm pink exofitic papule --Right popliteal fossa: 8mm pink keratotic papule ASSESSMENT AND PLAN: Neoplasm of uncertain behavior of skin (primary encounter diagnosis) Comment: Left neck anterior, left neck posterior, left back, left fourth finger, right papl ateal fasa Plan: Neoplasms of uncertain behavior. Biopsy by shave technique performed today; will contact patient with results and arrange f or further care if needed. Procedure Note - Shave Biopsies Location: A: Left neck anterior: 3mm black macule - nevus r/o MM v BCC B: Left neck posterior: 1.2cm shiny plaque - white macule with surrounding shaggy border - BCC v scar v adnexal neoplasm C: Left back: 8mm peduculated papule - SCC v SK v nevus D: Left fourth finger: 1cm pink exofitic papule - acquired digital fibrokeratoma v wart E: Right popliteal fossa: 8mm pink keratotic papule - SCC v ISK Prior to beginning the procedure the team paused to verify the patient's identity, as well as the procedure to be performed and the biopsy sites. All equipment required was ready and available. The patient was positioned appropriately. A team pause was performed prior to t he procedure. After PARQ addressed and scar factors discussed, the areas were prepped with an isopropyl a lcohol pad. Anesthesia was obtained by subcutaneous infusion of buffered 1% lidocaine with 1 :100,000 epinephrine. Biopsies were performed by shave technique. Blood loss was minimal. The sites were dressed with white petrolatum jelly and a bandage. Verbal and written wound care instructions were given to the patient. Patient reports no pain after the procedure. Seborrheic keratoses Comment: Right jew, scattered on back, legs Plan: -Pt reassured as to the benign nature, does not require treatment unless symptomatic or repeatedly traumatized. Like any lesion, should it not be stable in size or appearance, or become symptomatic, it should be biopsied to confirm benign nature. Pt instructed to retu rn with any change or concern. RETURN VISIT: Return if symptoms worsen or fail to improve. Analisa Jones MD Resident Athletic Trainer Department of Dermatology [facility] Electronically signed by Analisa Jones MD at 2015 11:13 AM PSTdocumented in this encounter Plan of Treatment + +------+--------+ + + | Name | Type | Priori | Associated Diagnoses | Order Schedule | | | | ty | | | + +------+--------+ + + | DERM PATHOLOGY | Lab | Routin | Neoplasm of | Ordered: 04/07/2016 | | | | e | uncertain behavior | | | | | | of skin | | + +------+--------+ + + documented as of this encounter Procedures + +--------+ + + + | Procedure Name | Priori | Date/Time | Associated Diagnosis | Comments | | | ty | | | | + +--------+ + + + | ME BIOPSY, EACH | Routin | 04/07/2016 | Neoplasm of | | | ADDED LESION | e | 3:35 PM | uncertain behavior | | | | | PST | of skin | | + +--------+ + + + | ME BIOPSY OF SKIN | Routin | 04/07/2016 | Neoplasm of | | | LESION | e | 3:35 PM | uncertain behavior | | | | | PST | of skin | | + +--------+ + + + documented in this encounter Visit Diagnoses + + | Diagnosis | + + | Neoplasm of uncertain behavior of skin - Primary | + + | Seborrheic keratoses | + + documented in this encounter"
--- OUTSIDE RECORDS SUMMARY | ~2020-02-21 | XMS | Clinical Summary ---
Demographics + + + | Address | [address] | | | [place] [address] | + + + | Home Phone | | + + + | Preferred Language | Unknown | + + + | Marital Status | Unknown | + + + | Anglican Affiliation | Unknown | + + + | Race | White | + + + | Ethnic Group | Not or | + + + Author + + + | Author | [facility] | | | and [place] | + + + | Organization | [facility] | | | and [place] | + + + | Address | Unknown | + + + | Phone | Unavailable | + + + Support + + + + + | Name | Relationship | Address | Phone | + + + + + | Valerie Gamboawell | ECON | [address] | | | | | [place] | | | | | [address] | | + + + + + Care Team Providers + +------+ + | Care Manager Forensic Name | Role | Phone | + +------+ + | Wing Justice PA-C | PCP | | + +------+ + Allergies No Known Allergies Medications + + + +---------+------+------+-------+ | Medication | Sig | Dispensed | Refills | Star | End | Statu | | | | | | t | Date | s | | | | | | Date | | | + + + +---------+------+------+-------+ | aspirin 81 mg | Chew and swallow 1 | 90 | 3 | 06/2 | 06/2 | Activ | | chewable tablet | tablet (81 mg total) | tablet | | 0/20 | 0/20 | e | | | Daily | | | 20 | 21 | | + + + +---------+------+------+-------+ | atorvaSTATin | Take 1 tablet (80 mg | 90 | 3 | 06/1 | 10/22 | Activ | | (LIPITOR) 80 MG | total) by mouth | tablet | | 9/20 | 9/20 | e | | tablet | nightly | | | 20 | 21 | | + + + +---------+------+------+-------+ | clopidogrel | Take 1 tablet (75 mg | 90 | 3 | 06/2 | 06/2 | Activ | | (PLAVIX) 75 mg | total) by mouth | tablet | | 0/20 | 0/20 | e | | tablet | Daily | | | 20 | 21 | | + + + +---------+------+------+-------+ | lisinopril | Take 1 tablet (10 mg | 90 | 3 | 06/2 | 06/2 | Activ | | (PRINIVIL, ZESTRIL) | total) by mouth | tablet | | 0/20 | 0/20 | e | | 10 mg tablet | Daily | | | 20 | 21 | | + + + +---------+------+------+-------+ | metoprolol | Take 1 tablet by | 30 | 1 | 09/3 | | Activ | | succinate | mouth Daily. | tablet | | 0/20 | | e | | (TOPROL-XL) 100 mg | | | | 20 | | | | ER tablet | | | | | | | + + + +---------+------+------+-------+ | furosemide (LASIX) | Take 1 tablet by | 30 | 0 | 09/3 | | Activ | | 40 mg tablet | mouth Daily. | tablet | | 0/20 | | e | | | | | | 20 | | | + + + +---------+------+------+-------+ | docusate sodium | Take 100 mg by mouth | 30 | 1 | 09/3 | | Activ | | (COLACE) 100 MG | Twice daily as | capsule | | 0/20 | | e | | capsule | needed for | | | 20 | | | | | Constipation. | | | | | | + + + +---------+------+------+-------+ | insulin detemir | Inject 18 Units | 6 mL | 0 | 09/3 | | Activ | | (LEVEMIR FLEXTOUCH) | under the skin every | | | 0/20 | | e | | 100 units/mL | 24 hours. | | | 20 | | | | injection (pen) | | | | | | | + + + +---------+------+------+-------+ | insulin lispro | Inject 10 Units | 9 mL | 0 | 09/3 | | Activ | | (HUMALOG, ADMELOG) | under the skin 3 | | | 0/20 | | e | | 100 units/mL | times daily (with | | | 20 | | | | injection (vial) | meals). | | | | | | + + + +---------+------+------+-------+ | insulin lispro | Inject 2-14 Units | 3 mL | 0 | 09/3 | | Activ | | (HUMALOG, ADMELOG) | under the skin 3 | | | 0/20 | | e | | 100 units/mL | times daily (with | | | 20 | | | | injection (vial) | meals) EndoTool | | | | | | | | Correctional | | | | | | | | Scale:For Blood | | | | | | | | Glucose (BG):142 to | | | | | | | | 180 Give 2 | | | | | | | | [id number] to 220 Give | | | | | | | | 4 [id number] to 260 | | | | | | | | Give 6 [email or web address] | | | | | | | | to 300 Give 8 | | | | | | | | [id number] to 350 Give | | | | [...] | syringe... | | | | | | + + + +---------+------+------+-------+ | tamsulosin | Take 1 capsule by | 30 | 1 | 09/3 | | Activ | | (FLOMAX) 0.4 mg CAPS | mouth daily (after | capsule | | 0/20 | | e | | | breakfast). | | | 20 | | | + + + +---------+------+------+-------+ | traMADol (ULTRAM) | Take 1-2 tablets by | 120 | 0 | 09/3 | | Activ | | 50 mg tablet | mouth every 6 hours | tablet | | 0/20 | | e | | | as needed for Pain. | | | 20 | | | + + + +---------+------+------+-------+ | acetaminophen | Take 2 tablets by | 60 | 0 | 09/3 | | Activ | | (TYLENOL) 500 mg | mouth EVERY 6 TO 8 | tablet | | 0/20 | | e | | tablet | HOURS NEEDED for | | | 20 | | | | | Pain. | | | | | | + + + +---------+------+------+-------+ | metoprolol | Take 1 tablet (50 mg | 90 | 3 | 06/2 | 01/24 | Disco | | succinate | total) by mouth | tablet | | 0/20 | 0/20 | ntinu | | (TOPROL-XL) 50 mg 24 | Daily | | | 20 | 20 | ed | | hr tablet | | | | | | | + + + +---------+------+------+-------+ | nitroglycerin | Place 1 tablet (0.4 | 30 | 11 | 06/1 | 01/24 | Disco | | (NITROSTAT) 0.4 mg | mg total) under the | tablet | | 02/10 | 0/20 | ntinu | | SL tablet | tongue every 5 | | | 20 | 20 | ed | | | minutes as needed | | | | | | | | for Chest pain | | | | | | + + + +---------+------+------+-------+ Active Problems + + + | Problem | Noted Date | + + + | Diabetes mellitus | 02/14/2020 | + + + | CAD in q[place] artery | 02/06/2020 | + + + + + | Overview: Added automatically from request for surgery | | [id number] | + + + + + | Coronary artery disease involving [place] coronary artery of | 11/16/2019 | | [place] heart without angina pectoris | | + + + | ST elevation myocardial infarction (STEMI) of inferior wall | 11/10/2019 | + + + Encounters +--------+ + + + + | Date | Type | Specialty | Care Team | Description | +--------+ + + + + | 02/13/ | Anesthesia | | Wing Harley MD | | | 2019 | Event | | | | +--------+ + + + + | 02/13/ | Surgery | | Cj Cr MD | CORONARY ARTERY | | 2019 | | | | BYPASS GRAFT | +--------+ + + + + | 02/13/ | Hospital | Internal Medicine | Cj Cr MD | CAD in [place] | 2019 - | Encounter | | | artery; Coronary | | | | | | artery disease | | 02/20/ | | | | involving q[place] | 2019 | | | | coronary artery of | | | | | | q[place] heart without | | | | | | angina pectoris | +--------+ + + + + | 02/07/ | Telephone | Cardiothoracic | Cj Cr MD | Follow-up (abnormal | | 2019 | | Surgery | | lab results) | +--------+ + + + + | 02/05/ | Hospital | Radiology | Cj Cr MD | | 2019 | Encounter | | | | +--------+ + + + + | 02/05/ | Preadmit | Pre-Admission | Cj Cr MD | | | 2019 | Visit | Testing | | | +--------+ + + + + | 02/05/ | Office | Cardiothoracic | Cj Cr MD | CAD in q[place] artery | | 2019 | Visit | Surgery | | (Primary Dx) | +--------+ + + + + | 12/25/ | Office | Cardiology | Gary Avery MD | Coronary artery | | 2019 | Visit | | | disease involving | | | | | | [place] coronary | | | | | | artery of q[place] | | | | | | heart without angina | | | | | | pectoris (Primary | | | | | | Dx) | +--------+ + + + + | 12/25/ | Documentati | Cardiology | Gary Avery MD | Other ([place] | 2019 | on | | | paperwork faxed to | | | | | | Lilly britton Mona | | | | | | Paton Spreaders) | +--------+ + + + + | 12/20/ | Telephone | Cardiology | Gary Avery MD | Other | | 2019 | | | | | +--------+ + + + + | 11/27/ | Office | Cardiothoracic | Cj Cr MD | CAD in qagan [place]agung[place] artery | | 2019 | Visit | Surgery | | (Primary Dx) | +--------+ + + + + from Last 3 Months Immunizations + + + + | Name | Administration Dates | Next Due | + + + + | INFLUENZA PF 4Y OR | 03/03/2018 | | | >,QUAD DERIVED FROM | | | | TISS-CULT | | | + + + + | INFLUENZA PF | 02/16/2020 (), 03/20/2017 | | | QUAD(PED/ADOL/ADULT) | | | | ,PSKT or VIAL | | | + + + + Family History + + +------+ + | Medical History | Relation | Name | Comments | + + +------+ + | Malig hypertherm | Neg Hx | | | + + +------+ + + +------+ + + | Relation | Name | Status | Comments | + +------+ + + | Father | | | | | | | (Age | | | | | 40) | | + +------+ + + | Mother | | | | | | | (Age | | | | | 83) | | + +------+ + + Social History + +-------+ +--------+ [...] + | Tobacco Cessation: Ready to Quit: Yes | | Comments: Per pt quit a couple [...] + + Plan of Treatment + + + + + | Health Maintenance | Due Date | Last | Comments | | | | Done | | + + + + + | Hepatitis C | | | | | Screening | 4 | | | + + + + + | Diabetic Eye Exam | | | | | | 2 | | | + + + + + | Diabetic Foot Exam | | | | | | 2 | | | + + + + + | Vaccine: | | | | | Dtap/Tdap/Td (1 - | 3 | | | | Tdap) | | | | + + + + + | Colorectal Cancer | | | | | Screening | 4 | | | | (Colonoscopy) | | | | + + + + + | Vaccine: Zoster (1 | | | | | of 2) | 4 | | | + + + + + | AAA Screening | | | | | | 9 | | | + + + + + | Vaccine: | | | | | Pneumococcal 65+ (1 | 9 | | | | of 1 - PPSV23) | | | | + + + + + | Adult Annual | | | | | Wellness Visit | 0 | | | + + + + + | Vaccine: Influenza | | 03/03/20 | | | (#1) | 0 | 18, | | | | | 03/20/20 | | | | | 17 | | + + + + + | Hemoglobin A1c | | 02/14/20 | | | Screening | 0 | 20, | | | | | 11/10/19 | | | | | 20 | | + + + + + | Med Mgmt: HBA1C | | 02/14/20 | | | | 1 | 20, | | | | | 11/10/19 | | | | | 20 | | + + + + + | Medication | | 02/21/20 | | | Management | 1 | 20 | | + + + + + | Med Mgmt: Cr | | 02/21/20 | | | | 1 | 20, | | | | | 02/20/20 | | | | | 20, | | | | | 02/19/20 | | | | | 20, | | | | | Addition | | | | | al | | | | | history | | | | | exists | | + + + + + | Med Mgmt: K | | 02/21/20 | | | | 1 | 20, | | | | | 02/20/20 | | | | | 20, | | | | | 02/20/20 | | | | | 20, | | | | | Addition | | | | | al | | | | | history | | | | | exists | | + + + + + | Med Mgmt: Na | | 02/21/20 | | | | 1 | 20, | | | | | 02/20/20 | | | | | 20, | | | | | 02/19/20 | | | | | 20, | | | | | Addition | | | | | al | | | | | history | | | | | exists | | + + + + + Implants + +--------+--------+ +--------+--------+--------+ | Implanted | Type | Area | Manufacture | Device | Shelf | Model | | | | | r | | Expira | / | | | | | | Identi | tion | Serial | | | | | | fier | Date | / Lot | + +--------+--------+ +--------+--------+--------+ | Marker Grft Margaret Imp Strl - | Generi | N/A: | GENESEE | | 09/20/ | AMGM-S | | Sn/AImplanted: Qty: 2 on | c | Heart | BIOMEDICAL | | 2022 | D /N/A | | 02/14/2020 by Cj Cr, | | | - RAMONA | | | | | MD at [facility] | | | | | | /[id number] | | [facility] | | | | | | 56 | + +--------+--------+ +--------+--------+--------+ | Stent Masood Synergy Mr 2.5 X 24 | Stent | N/A: | BOSTON | [id number] | 06/25/ | [id number] | | - [id number]: Qty: | | Arce | SCIENTIFIC | [id number] | 2021 | [id number] | | 1 on 11/09/2019 by Bennie, | | ry | MICAH - BSCI | 13 | | 50 / | | MD Gary at [facility] | | | | | | /[id number] | | [facility] | | | | | | 885 | + +--------+--------+ +--------+--------+--------+ + + | Description:rca pda | + + Procedures + +--------+ + + + | [...] + +--------+ + + + | POC ISJOSE CG8, | Routin | 02/14/2020 | | [...] + + + | POC RIGOBERTO 4, ISKRISTAT | Routin | 02/14/2020 | | Results [...] + +--------+ + + + | LONNY BUSTILLO CG8, | Routin | 02/14/2020 | | [...] ARTERY | | 02/14/2020 | CAD in [place] | | | BYPASS GRAFT | | [...] | TYPE AND SCREEN | STAT | 02/06/2020 | | Results for this | | | | 2:26 PM | | procedure are in the | | | | PDT | | results section. | + +--------+ + + + | PTT | STAT | 02/06/2020 | | Results for this | | | | 2:24 PM | | procedure are in the | | | | PDT | | results section. | + +--------+ + + + | PROTIME INR | STAT | 02/06/2020 | | Results for this | | | | 2:24 PM | | procedure are in the | | | | PDT | | results section. | + +--------+ + + + | BASIC METABOLIC | STAT | 02/06/2020 | | Results for this | | PANEL | | 2:24 PM | | procedure are in the | | | | PDT | | results section. | + +--------+ + + + | CBC NO DIFFERENTIAL | STAT | 02/06/2020 | | Results for this | | | | 2:24 PM | | procedure are in the | | | | PDT | | results section. | + +--------+ + + + | MRSA NAAT | STAT | 02/06/2020 | | Results for this | | | | 2:21 PM | | procedure are in the | | | | PDT | | results section. | + +--------+ + + + from Last 3 Months Results XR Chest AP Portable (2020 6:05 AM PDT)Only the most recent of 8 results within the time period is included. + + | Specimen | + + [...] Procedure Note | + + | Aidan, [id number] - 2020 7:32 AM PDT | | [...] + + POC Glucose (2020 6:03 AM PDT)Only the most recent of 59 results within the time per is included. + + + + + + | Component | Value | Ref Range | Performed | Pathologist | | | | | At | Signature | + + + + + + | Glucose, | 106 (H)Comment: Testing | 65 - 99 mg/dL | [facility] | | | POC | performed at [facility];[address] | | LABORATORY | | | | [address];[place] | | | | | | [address] | | | | + + + + + + + + | Specimen | + + | | + + + + + + + | Performing | Address | City/State/Zipcode | Phone Number | | Organization | | | | + + + + + | [facility] | [address] | [place] [address] | [phone] | + + + + + CBC with Differential (2020 4:42 AM PDT)Only the most recent of 8 results within the time period is included. + + + + + + | [...] 0.06Comment: Testing | 0.00 - 0.10 | [facility] | | | Absolute | performed at [facility];[address] | K/uL | LABORATORY | | | | [address];[place] | | | | | | [address] | | | | + + + + + + + + | Specimen | + + | Blood | + + + + + + + | Performing | Address | City/State/Zipcode | Phone Number | | Organization | | | | + + + + + | [facility] | [address] | [place] [address] | [phone] | + + + + + Magnesium (2020 4:42 AM PDT)Only the most recent of 9 results within the time period is included. + + + + + + | Component | Value | Ref Range | Performed | Pathologist | | | | | At | Signature | + + + + + + | Magnesium | 2.0Comment: Testing | 1.7 - 2.4 mg/dL | [facility] | | | | performed at [facility];[address] | | LABORATORY | | | | [address];[place], [place] | | | | | | [address] | | | | + + + + + + + + | Specimen | + + | Blood | + + + + + + + | Performing | Address | City/State/Zipcode | Phone Number | | Organization | | | | + + + + + | [facility] | [address] | [place] [address] | [phone] | + + + + + Basic Metabolic Panel (2020 4:42 AM PDT)Only the most recent of 10 results within time period is included. + + + + + + | [...] | | | | | performed at [facility];[address] | | | | | | [address];[place], [place] | | | | | | [address] | | | | + + + + + + + + | Specimen | + + | Blood | + + + + + + + | Performing | Address | City/State/Zipcode | Phone Number | | Organization | | | | + + + + + | [facility] | [address] | [place] [address] | [phone] | + + + + + Coronavirus [...] | | | | | performed at [facility] | | | | | | [address];[place], [place] | | | | | | [address] | | | | + + + + + + + + | Specimen | + + | Tissue - Entire | | nasopharynx (body | | structure) | + + + + + + + | Performing | Address | City/State/Zipcode | Phone Number | | Organization | | | | + + + + + | [facility] | [address] | [place] [address] | [phone] | + + + + + Potassium (02/20/2020 12:27 PM PDT)Only the most recent of 8 results within the time period is included. + + + + + + | Component | Value | Ref Range | Performed | Pathologist | | | | | At | Signature | + + + + + + | K | 3.7Comment: Testing | 3.5 - 4.9 | [facility] | | | | performed at [facility];[address] | mmol/L | LABORATORY | | | | [address];[place], [place] | | | | | | [address] | | | | + + + + + + + + | Specimen | + + | Blood | + + + + + + + | Performing | Address | City/State/Zipcode | Phone Number | | Organization | | | | + + + + + | [facility] | [address] | [place] [address] | [phone] | + + + + + Phosphorus (02/15/2020 6:16 PM PDT) + + + + + + | Component | Value | Ref Range | Performed | Pathologist | | | | | At | Signature | + + + + + + | Phosphorus | 2.1 (L)Comment: Testing | 2.3 - 4.8 mg/dL | [facility] | | | | performed at [facility];[address] | | LABORATORY | | | | [address];[place] | | | | | | [address] | | | | + + + + + + + + | Specimen | + + | | + + + + + + + | Performing | Address | City/State/Zipcode | Phone Number | | Organization | | | | + + + + + | [facility] | [address] | [place] [address] | [phone] | + + + + + Blood gas, Arterial (02/14/2020 4:02 PM PDT)Only the most recent of 2 results within the period is included. + + + + + + | [...] Testing | 95 - 98 % | [facility] | | | Arterial, | performed at [facility];[address] | | LABORATORY | | | POC | [address];[place] | | | | | | [address] | | | | + + + + + + + + | Specimen | + + | | + + + + + + + | Performing | Address | City/State/Zipcode | Phone Number | | Organization | | | | + + + + + | [facility] | [address] | [place] [address] | [phone] | + + + + + Platelets (PLT) - Transfuse (02/14/2020 2:38 PM PDT)Only the most recent of 2 results with in the time period is included.ECG 12 lead (02/14/2020 1:12 PM PDT) + [...] MD | | | | | | ([id number]) on 02/16/2020 | | | | | [...] | | | + +---------+ + + Calcium, Ionized, Venous (02/14/2020 12:35 [...] | | LABORATORY | | | | [facility];[address] [place] [address] | | | | | | [facility];[place] [address] | | | | + + + + + + + + | Specimen | + + | Blood | + + + + + + + | Performing | Address | City/State/Zipcode | Phone Number | | Organization | | | | + + + + + | [facility] | [address] | [place] [address] | [phone] | + + + + + PTT (02/14/2020 12:30 PM PDT)Only the most recent of 2 results within the time period is in cluded. + + + + + + | Component | Value | Ref Range | Performed | Pathologist | | | | | At | Signature | + + + + + + | PTT | 24Comment: Testing | 23 - 32 seconds | [facility] | | | | performed at [facility];[address] | | LABORATORY | | | | [address];[place], [place] | | | | | | [address] | | | | + + + + + + + + | Specimen | + + | Blood | + + + + + + + | Performing | Address | City/State/Zipcode | Phone Number | | Organization | | | | + + + + + | [facility] | [address] | [place] [address] | [phone] | + + + + + Protime INR (02/14/2020 12:30 PM PDT)Only the most recent of 2 results within the time diana od is included. + + + + + + | Component | Value | Ref Range | Performed | Pathologist | | | | | At | Signature | + + + + + + | INR | 1.2Comment: REFERENCE | | [facility] | | | | RANGE:0.9 - [...] | | | | | performed at [facility];[address] | | | | | | [address];[place], [place] | | | | | | [address] | | | | + + + + + + + + | Specimen | + + | Blood | + + + + + + + | Performing | Address | City/State/Zipcode | Phone Number | | Organization | | | | + + + + + | [facility] | [address] | [place] [address] | [phone] | + + + + + Fibrinogen (02/14/2020 12:30 PM PDT) + + + + + + | Component | Value | Ref Range | Performed | Pathologist | | | | | At | Signature | + + + + + + | Fibrinogen | 195 (L)Comment: Testing | 200 - 450 mg/dL | [facility] | | | | performed at [facility];[address] | | LABORATORY | | | | [address];[place], [place] | | | | | | [address] | | | | + + + + + + + + | Specimen | + + | Blood | + + + + + + + | Performing | Address | City/State/Zipcode | Phone Number | | Organization | | | | + + + + + | [facility] | [address] | [place] [address] | [phone] | + + + + + Hemoglobin A1C (02/14/2020 12:30 PM PDT) + + + + + + | Component | Value | Ref Range | Performed | Pathologist | | | | | At | Signature | + + + + + + | Hemoglobin | 12.1 (H)Comment: | 4.8 - 5.6 % | [facility] | | | A1c | Prediabetes: 5.7 - | | LABORATORY | | | | 6.4 Diabetes: | | | | | | >6.4 | | | | | | Glycemic control for | | | | | | adults with diabetes: | | | | | | <7.0Testing performed at | | | | | | [facility], [address], | | | | | | [facility], [facility] | | | | | | [address] | | | | + + + + + + + + | Specimen | + + | Blood | + + + + + + + | Performing | Address | City/State/Zipcode | Phone Number | | Organization | | | | + + + + + | [facility] | [address] | [place] [address] | [phone] | + + + + + ECHO Transesophageal (JOHN) - Periop (02/14/2020 12:23 PM PDT) + + | Specimen | + + | | + + + + + | Narrative | Performed At | + + + | | [facility] | | Transesophageal Echocardiography Report (JOHN) Demographics Patient | | | Name NILSA JAMA Room Number 9115 | | | [facility] Patient Number [id number] | | | Date of Study 02/14/2020 Visit Number [id number] | | | Referring Physician RAMIN CUADRA Accession | | | [id number] Seasoner Number Date of | | | 1955 Interpreting WING HARLEY | | | Physician Age | | | 64 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 | | | Procedure DateDate: 02/14/2020 Start: 06:47 AM Conclusions Summary | | | Significant mobile plaque in the arch and descending aorta. Post CABG, | | | no change in q[place] valvular function or new segmental wall motion [...] Procedure Note | + + | Aidan, [id number] - 02/19/2020 12:56 PM PDT Transesophageal Echocardiography Report (JOHN) | | | | Demographics | | | | Patient Name NILSA JAMA Room Number 9115 | | JR. 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 | | | | Procedure Date | | Date: 02/14/2020 Start: 06:47 AM | | | | Conclusions | | | | Summary | | Significant mobile plaque in the arch and descending aorta. | | Post CABG, no change in q[place] valvular function or new segmental wall | [...] CG 4, ISTAT Arterial (02/14/2020 12:18 PM PDT)Only the most recent of 3 results within the time period is included. + + + + + + | [...] | | | Arterial, | performed at [facility];[address] | | LABORATORY | | | POC | [address];[place], [place] | | | | | | [address] | | | | + + + + + + + + | Specimen | + + | | + + + + + + + | Performing | Address | City/State/Zipcode | Phone Number | | Organization | | | | + + + + + | [facility] | [address] | [place] [address] | [phone] | + + + + + Product: [...] + + + | UNIT # | [id number] | | [facility] | | | | [...] | | | Status | performed at [facility];[address] | | LABORATORY | | | | [address];[place], [place] | | | | | | [address] | | | | + + + + + + | UNIT # | [id number] | | [facility] | | | | | | LABORATORY | | + + + + + + | Product | PAS [facility] PLATELET,IRR B | | [facility] | | [...] + + | [facility] | [address] | [place] [address] | [phone] | + + + + + POC ISTAT, CG8, Arterial (02/14/2020 11:48 AM PDT)Only the most recent of 6 results within the time period is included. + + + + + + | [...] | | | POC | performed at [facility];888 | g/dL | LABORATORY | | | | [address];[place], [place] | | | | | | [address] | | | | + + + + + + + + | Specimen | + + | | + + + + + + + | Performing | Address | City/State/Zipcode | Phone Number | | Organization | | | | + + + + + | [facility] | [address] | [place] [address] | [phone] | + + + + + POC ISTAT, CG8, Venous (02/14/2020 10:09 AM PDT) + + + + + + | Component | Value | Ref Range | Performed | Pathologist | | | | | At | Signature | + + + + + + | pH, Venous, | 7.195 (L) | 7.310 - 7.410 | [facility] | | | POC | | | [...] | | | POC | performed at [facility];888 | g/dL | LABORATORY | | | | [address];[place] | | | | | | [address] | | | | + + + + + + + + | Specimen | + + | | + + + + + + + | Performing | Address | City/State/Zipcode | Phone Number | | Organization | | | | + + + + + | [facility] | [address] | [place] [address] | [phone] | + + + + + CVC (02/14/2020 8:41 AM PDT) + + + | Narrative | Performed At | + + + | Wing Harley MD 02/14/2020 8:41 AM Central Venous [...] 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 | | + + + Jenn (02/14/2020 8:41 AM PDT) + + + | Narrative | Performed At | + + + | Wing Harley MD 02/14/2020 8:41 AM Arterial Line Placement | | | 02/14/2020 7:29 AM Indication: continuous blood pressure | | | monitoring Prep solution: alcohol Patient was: awake Pain | | | prevention: 1% lidocaine infiltration Laterality: left Artery:radial | | | Size: 20 g Securement: transparent dressing, tape, arm board and | | | sutures Performed by: Wing Harley MD Authorizing provider: Wing Harley MD Please see intraoperative grid for any additional | | | medication documentation. | | + + + Airway (02/14/2020 8:41 AM PDT) + + + | Narrative | Performed At | + + + | Wing Harley MD 02/14/2020 8:41 AM Anesthesia Airway [...] dioxide | | | detection Performing provider: Wing Harley MD Authorizing | | | provider: Wing Harley MD Please see intraoperative grid | | | for any additional medication documentation. | | + + + Red Blood Cells (RBC) [...] | [facility] | | | COMMENT | [facility];[address] | | LABORATORY | | | | [place] [address] | | | | + + + + + + + + | Specimen | + + | | + + + + + + + | Performing | Address | City/State/Zipcode | Phone Number | | Organization | | | | + + + + + | [facility] | [address] | [place] [address] | [phone] | + + + + + CBC no Differential (02/14/2020 7:04 AM PDT)Only the most recent of 2 results within the period is included. + + + + + + | [...] LABORATORY | | | | performed at [facility];[address] | | | | | | [address];[place], [place] | | | | | | [address] | | | | + + + + + + + + | Specimen | + + | Blood | + + + + + + + | Performing | Address | City/State/Zipcode | Phone Number | | Organization | | | | + + + + + | [facility] | [address] | [place] [address] | [phone] | + + + + + Type and Screen (02/14/2020 7:04 AM PDT)Only the most recent of 2 results within the time period is included. + + + + + + | [...] + + + | BB BAND | [id number] | | [facility] | | | | | | LABORATORY | | + + + + + + | UNIT # | [id number] | | [facility] | | | | [...] + + + | UNIT # | [id number] | | [facility] | | | | [...] | | | RESULT | performed at [facility] | | LABORATORY | | | | [address];[place], [place] | | | | | | [address] | | | | + + + + + + | UNIT # | [id number] | | [facility] | | | | [...] + + + | UNIT # | [id number] | | [facility] | | | | [...] | + + + + + | [facility] | [address] | [place] [address] | [phone] | + + + + + POC [...] Negative results, using the | | | [employer] ID NOW Platform, should be treated as [...] | sooner. | | + + + XR Chest 2 Vws (02/06/2020 3:03 PM [...] Procedure Note | + + | Aidan, [id number] - 02/06/2020 3:16 PM PDT | | [...] | | | + +---------+ + + MRSA NAAT (02/06/2020 2:21 PM PDT) + + + + + + | Component | Value | Ref Range | Performed | Pathologist | | | | | At | Signature | + + + + + + | SOURCE: | NARES(NOSE) | | [facility] | | | | | | LABORATORY | | + + + + + + | Result | NEGATIVEComment: Testing | MRSNEG | [facility] | | | | performed at [facility];[address] | | LABORATORY | | | | [address];[place] | | | | | | [address] | | | | + + + + + + + + | Specimen | + + | Tissue - Both | | anterior nares (body | | structure) | + + + + + + + | Performing | Address | City/State/Zipcode | Phone Number | | Organization | | | | + + + + + | [facility] | [address] | [place] [address] | [phone] | + + + + + from Last 3 Months Insurance + +--------+ +--------+ +---------+--------+ | Payer | Benefi | Subscriber | Effect | Phone | Address | Type | | | t Plan | ID | melissa | | | | | | / | | Dates | | | | | | Group | | | | | | + +--------+ +--------+ +---------+--------+ | MEDICARE | MEDICA | [id number] | | [phone] | | Medica | | | RE | | 020-Pr | 5 | | re | | | PART A | | esent | | | | + +--------+ +--------+ +---------+--------+ | [facility] | PHP | [id number] | | [phone] | | PPO | | PLAN | PERSON | | 019-Pr | 5 | | | | | AL | | esent | | | | | | OPEN | | | | | | | | OPTION | | | | | | + +--------+ +--------+ +---------+--------+ + +--------+ +--------+ + + | Guarantor Name | Accoun | Relation to | Date | Phone | Billing Address | | | t Type | Patient | of | | | | | | | | | | + +--------+ +--------+ + + | Miles Sylvester | Person | Self [birth year] | [address] | | Jr. | al/Fam | | 1955 | [phone] | [place] | | | wili | | | 3 (Home) | [address] | + +--------+ +--------+ + + Advance Directives + + + + + | Type | Date Recorded | Patient | Explanation | | | | Dance Professor | | + + + + + | Power of | | | | | Registered Pharmacist | | | | + + + + + | Advance | 02/06/2020 9:50 | | | | Directive | AM | | | + + + + + + + + + + | Code Status | Date | Date | Comments | | | Activated | Inactivated | | + + + + + | Full Code | 02/14/2020 | 2020 | | | | 12:34 PM | 11:49 AM | | + + + + + + + + +---+ | | | | | + + + +---+ | Full Code | 11/09/2019 | 11/11/2019 | | | | 3:57 PM | 12:59 PM | | + + + +---+
--- OUTSIDE RECORDS SUMMARY | ~2020-02-21 | XMS | Encounter Summary ---
Demographics + + + | Address | [address] | | | [place] [address] | + + + | Home Phone | | + + + | Preferred Language | Unknown | + + + | Marital Status | Single | + + + | Hinduism Affiliation | NON | + + + | Race | White | + + + | Ethnic Group | Not or | + + + Author + + + | Author | [facility] | + + + | Organization | [facility] | + + + | Address | Unknown | + + + | Phone | Unavailable | + + + Support + + +---------+ + | Name | Relationship | Address | Phone | + + +---------+ + | Valerie Perales | ECON | Unknown | | + + +---------+ + Care Team Providers + +------+ + | Care Matrix Inspector Name | Role | Phone | + +------+ + | Stella Cuevas PA-C | PCP | | + +------+ + Reason for Visit + + + | Reason | Comments | + + + | Follow-up visit | | + + + Encounter Details +--------+---------+ + + + | Date | Type | Department | Care Team | Description | +--------+---------+ + + + | 05/22/ | Office | Dermatology at | Analisa Jones | Squamous cell | | 2015 | Visit | Melania Velasquez | MD Will | carcinoma of skin of | | | | Clinic [address] | | trunk, except | | | | [place], [place] | | scrotum; Squamous | | | | [address] | | cell carcinoma of | | | | [phone] | | skin of right lower | | | | | | extremity, including | | | | | | hip | +--------+---------+ + + + Social History [...] + documented in this encounter Progress Notes Analisa Jones MD - 05/22/2016 10:30 AM PST [facility] DER[facility] FOLLOW-UP VISIT (Last Appointment in [facility] D[facility]MAT[facility]RT was on 04/28/16 with Analisa Jones MD.) Dx: --SCC- Back, right popliteal fossa C&D SUBJECTIVE: Miles Sylvester is a 61 y.o. male here for C&D. Since last visit, these areas have hea led without difficulty. He denies any other skin complaints today. He wishes to proceed wi C and D of the biopsy proven squamous cell carcinomas on the back and right popliteal fos sa. ROS: Other than those stated above, the patient denies any fevers, chills, night sweats, w eight loss, loss of appetite or other skin complaints. PAST DERMATOLOGIC HISTORY: Problem List Dermatology PAST MEDICAL HISTORY: Past Medical History Diagnosis Date Hypertension PHYSICAL EXAMINATION: BP 178/92 | Pulse 99 | Ht 1.825 m (5' 11.85") | Wt 101.4 kg (223 lb 9.6 oz) | SpO2 94% | BM I 30.45 kg/(m^2) Well-developed, well-nourished male in no acute distress. Awake, alert and oriented. Plea julianna and cooperative mood. A skin examination was performed including the legs, back. Findings were within normal orr its except for the following: --L Back: pink scaly plaque --Right popliteal fossa: pink scaly plaque ASSESSMENT AND PLAN: Squamous cell carcinoma of skin of trunk, except scrotum Comment: Back C&D performed today; Procedure Note - Shave Biopsy with Curettage and Electrodesiccation Location: Back First pass size: 1.2cm After PARQ addressed and scar factors discussed, the area was prepped with an isopropyl alc ohol pad. Anesthesia was obtained by subcutaneous infusion of buffered 1% lidocaine with 1:1 00,000 epinephrine. Three passes of curettage and electrodesiccation were performed. Blood loss was minimal. The site was dressed with white petrolatum jelly and a bandage. Verbal a nd written wound care instructions were given to the patient. Patient reports no pain after the procedure. Squamous cell carcinoma of skin of right lower extremity, including hip Comment: Right popliteal fossa Plan: C&D performed today; Procedure Note - Shave Biopsy with Curettage and Electrodesiccation Location: Right popliteal fossa First pass size: 0.9cm After PARQ addressed and scar factors discussed, the area was prepped with an isopropyl alc ohol pad. Anesthesia was obtained by subcutaneous infusion of buffered 1% lidocaine with 1:1 00,000 epinephrine. Three passes of curettage and electrodesiccation were performed. Blood loss was minimal. The site was dressed with white petrolatum jelly and a bandage. Verbal an d written wound care instructions were given to the patient. Patient reports no pain after the procedure. RETURN VISIT: Return in about 6 months (around 11/20/2016). Analisa Jones MD Table Top Tile Setter Department of Dermatology [facility] documented in this encounter Plan of Treatment Not on filedocumented as of this encounter Procedures + +--------+ + + + | Procedure Name | Priori | Date/Time | Associated Diagnosis | Comments | | | ty | | | | + +--------+ + + + | NURY GARCIA | Routin | 05/22/2016 | Squamous cell | | | TRUNK,EXTREM 2.1-3 | e | 11:53 AM | carcinoma of skin of | | | CM | | PST | trunk, except | | | | | | scrotum Squamous | | | | | | cell carcinoma of | | | | | | skin of right lower | | | | | | extremity, including | | | | | | hip | | + +--------+ + + + documented in this encounter Visit Diagnoses + + | Diagnosis | + + | Squamous cell carcinoma of skin of trunk, except scrotum | + + | Squamous cell carcinoma of skin of right lower extremity, including hip | + + documented in this encounter
--- OUTSIDE RECORDS SUMMARY | ~2020-02-21 | XMS | Encounter Summary ---
Demographics + + + | Address | [address] | | | [place] [address] | + + + | Home Phone [...] + + + | Author | [facility] | + + + | Organization | [facility] | + + + | Address | Unknown | + + + | Phone | Unavailable | + + + Support + + +---------+ + | Name | Relationship | Address | Phone | + + +---------+ + | Valerie Perales | ECON | Unknown | | + + +---------+ + Care Team Providers + +------+ + | Care Dock Builder Name | Role | Phone | + +------+ + | Forest Laurent MD | PCP | Unavailable | + +------+ + Encounter Details +--------+ + + + + | Date | Type | Department | Care Team | Description | +--------+ + + + + | 10/22/ | Research | [place] [facility] | Jadiel Merida MD | | | 2011 | Encounter | [facility] | [address] | | | | | [facility] | [place], [place] | | | | | [address] | [address] | | | | | N[place] | [phone] | | | | | [facility], | | | | | | floor [place], [place] | | | | | | [address] | | | | | | [phone] | | | +--------+ + + + [...] + + + | Blood Pressure | 145/84 | 10/23/2011 10:55 AM | | | | | PDT | | + + + + + | Pulse | 88 | 10/23/2011 10:55 AM | | | | | PDT | | + + + + + | Temperature | - | - | | + + + + + | Respiratory Rate | - | - | | + + + + + | Oxygen Saturation | 97% | 10/23/2011 10:55 AM | | | | | PDT | | + + + + + | Inhaled Oxygen | - | - | | | Concentration | | | | + + + + + | Weight | 94.6 kg (208 lb 8 | 10/23/2011 10:55 AM | | | | oz) | PDT | | + + + + + | Height | - | - | | + + + + + | Body Mass Index | - | - | | + + + + + documented in this encounter Progress Notes Jadiel Merida MD - 10/23/2011 11:30 AM PDTFormatting of this note might be different from t sahil original. STROKE I saw and evaluated patient. I reviewed note SHYAM and concur. 55 y.o. 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 He had a MRA showed basilar stenosis. He was transferred to [facility] ED for f urther evaluation. Angio only 40% basilar. Since last seen no further events. Still on combined ASA/Plavix Current Outpatient Prescriptions Medication Sig aspirin 325 mg Oral Tablet Take 1 Tab by mouth once daily. clopidogrel 75 mg Oral Tablet Take 1 Tab by mouth once daily. lisinopril 10 mg Oral Tablet Take 1 Tab by mouth once daily. ranitidine 150 mg Oral Tablet Take 1 Tab by mouth two times daily. rosuvastatin (CRESTOR) 40 mg Oral Tablet Take 1 Tab by mouth once daily. 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 Can stop the ASA and cont Plavix. Will check LDL today goal < 70. Doing well in IRIS prediabetes trial. P) Plavix Crestor 40mg RTC on year documented in this encou nter Plan of Treatment Not on filedocumented as of this encounter Visit Diagnoses Not on filedocumented in this encounter"
--- OUTSIDE RECORDS SUMMARY | ~2020-02-21 | XMS | Encounter Summary ---
Demographics + + + | Address | [address] | | | [place] [address] | + + + | Home Phone | | + + + | Preferred Language | Unknown | + + + | Marital Status | Single | + + + | Taoist Affiliation | NON | + + + | Race | White | + + + | Ethnic Group | Not or | + + + Author + + + | Author | [facility] | + + + | Organization | [facility] | + + + | Address | Unknown | + + + | Phone | Unavailable | + + + Support + + +---------+ + | Name | Relationship | Address | Phone | + + +---------+ + | Valerie Perales | ECON | Unknown | | + + +---------+ + Care Team Providers + +------+ + | Care Hoist Mechanic Name | Role | Phone | + +------+ + | Stella Cuevas PA-C | PCP | | + +------+ + Encounter Details +--------+ + + + + | Date | Type | Department | Care Team | Description | +--------+ + + + + | 03/09/ | Document-Sc | Dermatology at | Analisa Jones | | | 2016 | anned | Mel[facility] | MD Will | | | | | Clinic [address] | | | | | | [address] [place] | | | | | | [address] | | | | | | [phone] | | | +--------+ + + + [...]
--- OUTSIDE RECORDS SUMMARY | ~2020-02-21 | XMS | Encounter Summary ---
Demographics + + + | Address | [address] | | | [place] [address] | + + + | Home Phone | | + + + | Preferred Language | Unknown | + + + | Marital Status | Unknown | + + + | Amish Affiliation | Unknown | + + + | Race | White | + + + | Ethnic Group | Not or | + + + Author + + + | Author | [facility] | | | and [place] | + + + | Organization | [facility] | | | and [place] | + + + | Address | Unknown | + + + | Phone | Unavailable | + + + Support + + + + + | Name | Relationship | Address | Phone | + + + + + | Valeriedileep Gamboawell | [place] | [address] | | | | | [place] | | | | | [address] | | + + + + + Care Team Providers + +------+ + | Care Clinical Program Director Name | Role | Phone | + +------+ + | Domingo Justice PA-C | PCP | | + +------+ + Encounter Details +--------+ + + + + | Date | Type | Department | Care Team | Description | +--------+ + + + + | 02/05/ | Preadmit | [facility] | Cj Cr MD | | | 2019 | Visit | CENTER [facility] | [address] | | | | | CLINIC [address] | [place], [place] | | | | | [place], [place] | [address] | | | | | [address] | | | | | | [phone] | | | +--------+ + + + [...] + + + | Blood Pressure | - | - | | + + + + + | Pulse | 86 | 02/06/2020 2:59 PM | | | | | PDT | | + + + + + | Temperature | - | - | | + + + + + | Respiratory Rate | - | - | | + + + + + | Oxygen Saturation | 96% | 02/06/2020 2:59 PM | | | | | PDT | | + + + + + | Inhaled Oxygen | - | - | | | Concentration | | | | + + + + + | Weight | 92 kg (202 lb 13.2 | 02/06/2020 2:59 PM | | | | oz) | PDT | | + + + + + | Height | 182.9 cm (6') | 02/06/2020 2:59 PM | | | | | PDT | | + + + + + | Body Mass Index | 27.51 | 02/06/2020 2:59 PM | | | | | PDT [...] + + documented as of this encounter Patient Instructions Instructions Caitlin Doe RN - 02/06/2020 Outpatient Medications Marked as Taking for the 02/06/20 encounter (Preadmit Visit) with [facility] RO[facility] 4 Medication Sig Instructions aspirin 81 mg chewable tablet Chew and swallow 1 tablet (81 mg total) Daily DO NOT TAKE day of procedure atorvaSTATin (LIPITOR) 80 MG tablet Take 1 tablet (80 mg total) by mouth nightly TAKE n ight before procedure clopidogrel (PLAVIX) 75 mg tablet Take 1 tablet (75 mg total) by mouth Daily HOLD prior to procedure. Take last dose 02/06/2020 lisinopril (PRINIVIL, ZESTRIL) 10 mg tablet Take 1 tablet (10 mg total) by mouth Daily DO NOT TAKE day of procedure metoprolol succinate (TOPROL-XL) 50 mg 24 hr tablet Take 1 tablet (50 mg total) by mout h Daily TAKE day of procedure nitroglycerin (NITROSTAT) 0.[address] 1 tablet (0.4 mg total) under the tong ue every 5 minutes as needed for Chest pain TAKE day of procedure, if needed documented in this encounter Miscellaneous Notes Preadmit Clinic Note - Caitlin Doe RN - 02/06/2020 2:30 PM PDTDenies chest pain and paula rtness of breath of breath with usual daily activities, Mets of 1.6-2.9 Does tire easily Covid screening scheduled. Labs taken yesterday, came back with blood glucose over 400, did alert anesthesia control clerk food and beverage, they would like pt to f/u with primary care physician to work on getting this under control before surgery, called and spoke to pt, who assured me he will f/u with [facility]. Placed orders for DOS repeat Bmp. This jingle writer also spoke to Dr Cr's Rn this afternoon and let her know of recent Bmp and High glucose value, she will speak with surgeon for next steps. documented in this enco unter Plan of [...] Procedure Note | + + | Aidan, [id number] - 02/06/2020 3:16 PM PDT | | [...] | | | + +---------+ + + Type and Screen (02/06/2020 2:26 PM PDT) + + + + + [...] + + + + | Antibody | Testing performed at | | [facility] | | | Screen | [facility] | | LABORATORY | | | | [address];[place] [address] | | | | + + + + + + + + | Specimen | + + | Blood | + + + + + + + | Performing | Address | City/State/Zipcode | Phone Number | | Organization | | | | + + + + + | [facility] | [address] | [place] [address] | [phone] | + + + + + PTT (02/06/2020 2:24 PM PDT) + + + + + + | Component | Value | Ref Range | Performed | Pathologist | | | | | At | Signature | + + + + + + | PTT | 25Comment: Testing | 23 - 32 seconds | [facility] | | | | performed at [facility] | | LABORATORY | | | | [address];[place] | | | | | | [address] | | | | + + + + + + + + | Specimen | + + | Blood | + + + + + + + | Performing | Address | City/State/Zipcode | Phone Number | | Organization | | | | + + + + + | [facility] | [address] | [place] [address] | [phone] | + + + + + Protime INR (02/06/2020 2:24 PM PDT) + + + + + + | Component | Value | Ref Range | Performed | Pathologist | | | | | At | Signature | + + + + + + | INR | 1.0Comment: REFERENCE | | [facility] | | | | RANGE:0.9 - 1.2 [...] | | | | performed at [facility];[address] | | | | | | [address];[place], [place] | | | | | | [address] | | | | + + + + + + + + | Specimen | + + | Blood | + + + + + + + | Performing | Address | City/State/Zipcode | Phone Number | | Organization | | | | + + + + + | [facility] | [address] | [place] [address] | [phone] | + + + + + Basic Metabolic Panel (02/06/2020 2:24 PM PDT) + + + + + + | Component | Value | Ref Range | Performed | Pathologist | | | | | At | Signature | + + + + + + | Na | 135 | 135 - 145 | [facility] | | | | | mmol/L | LABORATORY | | + + + + + + | K | 4.1 | 3.5 - 4.9 | [facility] | | | | | mmol/L | LABORATORY | | + + + + + + | Cl | 102 | 99 - 109 mmol/L | [facility] | | | | | | LABORATORY | | + + + + + + | CO2 | 26 | 23 - 32 mmol/L | [facility] | | | | | | LABORATORY | | + + + + + + | Anion Gap | 11 | 5 - 20 mmol/L | [facility] | | | | | | LABORATORY | | + + + + + + | Glucose | 446 (H) | 65 - 99 mg/dL | [facility] | | | | | | LABORATORY | | + + + + + + | BUN | 12 | 8 - 25 mg/dL | [facility] | | | | | | LABORATORY | | + + + + + + | Creatinine | 1.05 | 0.70 - 1.30 | [facility] | | | | | mg/dL | LABORATORY | | + + + + + + | BUN/Creatin | 11 | | [facility] | | | ine Ratio | | | LABORATORY | | + + + + + + | Calcium | 9.4 | 8.5 - 10.5 | [facility] | | | | | mg/dL | LABORATORY | | + + + + + + | Estimated | >60Comment: GFR <60: | >60 | [facility] | | | GFR | [...] | | | | | | MDRD [facility] traceable | | | | | | equation.Testing | | | | | | performed at [facility];[address] | | | | | | [facility];[place], [place] | | | | | | [address] | | | | + + + + + + + + | Specimen | + + | Blood | + + + + + + + | Performing | Address | City/State/Zipcode | Phone Number | | Organization | | | | + + + + + | [facility] | [address] | [place] [address] | [phone] | + + + + + CBC no Differential (02/06/2020 2:24 PM PDT) + + + + + + | Component | Value | Ref Range | Performed | Pathologist | | | | | At | Signature | + + + + + + | WBC | 9.08 | 3.80 - 11.00 | [facility] | | | | | K/uL | LABORATORY | | + + + + + + | Red Blood | 5.15 | 4.20 - 5.70 | [facility] | | | Cells | | M/uL | LABORATORY | | + + + + + + | Hemoglobin | 15.1 | 13.2 - 17.0 | [facility] | | | | | g/dL | LABORATORY | | + + + + + + | Hematocrit | 45.2 | 39.0 - 50.0 % | [facility] | | | | | | LABORATORY | | + + + + + + | MCV | 87.8 | 80.0 - 100.0 fl | [facility] | | | | | | LABORATORY | | + + + + + + | MCH | 29.3 | 27.0 - 34.0 pg | [facility] | | | | | | LABORATORY | | + + + + + + | MCHC | 33.4 | 32.0 - 35.5 | [facility] | | | | | g/dL | LABORATORY | | + + + + + + | RDW-SD | 43.3 | 37 - 53 fl | [facility] | | | | | | LABORATORY | | + + + + + + | Platelet | 289 | 150 - 400 K/uL | [facility] | | | Count | | | LABORATORY | | + + + + + + | MPV | 10.6Comment: NO NORMAL | fl | [facility] | | | | RANGE ESTABLISHEDTesting | | LABORATORY | | | | performed at [facility];[address] | | | | | | [address];[place] | | | | | | [address] | | | | + + + + + + + + | Specimen | + + | Blood | + + + + + + + | Performing | Address | City/State/Zipcode | Phone Number | | Organization | | | | + + + + + | [facility] | [address] | [place] [address] | [phone] | + + + + + MRSA NAAT (02/06/2020 2:21 PM [...] [facility] | | | | performed at [facility];[address] | | LABORATORY | | | | [address];[place], [place] | | | | | | [address] | | | | + + + + + + + + | Specimen | + + | Tissue - Both | | anterior nares (body | | structure) | + + + + + + + | Performing | Address | City/State/Zipcode | Phone Number | | Organization | | | | + + + + + | [facility] | [address] | [place] [address] | [phone] | + + + + + documented in this encounter Visit Diagnoses Not on filedocumented in this encounter"
--- OUTSIDE RECORDS SUMMARY | ~2020-02-21 | XMS | Encounter Summary ---
Demographics + + + | Address | [address] | | | [place] [address] | + + + | Home Phone | | + + + | Preferred Language | Unknown | + + + | Marital Status | Single | + + + | Zoroastrian Affiliation | NON | + + + [...] Team Providers + +------+ + | Care Automotive Light Mechanic Name | Role | Phone | + +------+ + | Forest Laurent MD | PCP | Unavailable | + +------+ + Encounter Details +--------+------+ + + + | Date | Type | Department | Care Team | Description | +--------+------+ + + + | 09/26/ | Lab | Laboratory at [facility] | | Stroke (HCC) | | 2010 | | [address] | | | | | | [address] Phys[facility]'s | | | | | | [place], [address] [place] [address] | | | | | | [place], [place] | | | | | | [address] | | | | | | [phone] | | | +--------+------+ + + + Social History + +-------+ [...] | + +--------+ + + + | LIVER SET | Routin | 09/26/2010 | Stroke (HCC) | Results for this | | (AST,ALT,BILI | e | 11:57 AM | | procedure are in the | | TOTAL,BILI | | PDT | | results section. | | DIRECT,ALK | | | | | | PHOS,ALB,PROT TOTAL) | | | | | + +--------+ + + + | LIPID SET (TRIG, T | Routin | 09/26/2010 | Stroke (HCC) | Results for this | | CHOL, HDL, CALC LDL) | e | 11:57 AM | | procedure are in the | | | | PDT | | results section. | + +--------+ + + + | CK, PLASMA | Routin | 09/26/2010 | Stroke (HCC) | Results for this | | | e | 11:57 AM | | procedure are in the | | | | PDT | | results section. | + +--------+ + + + documented in this encounter Results LIVER SET (AST,ALT,BILI TOTAL,BILI [...] | + + + + + | [facility] DEPARTMENT OF | [address] | [place] [address] | | | PATHOLOGY | [address] | | | + + + + + CK, PLASMA (09/26/2010 11:57 AM PDT) + +-------+ + + + | Component | Value | Ref Range | Performed | Pathologist | | | | | At | Signature | + +-------+ + + + | CK | 71 | 49 - 397 U/L | [facility] | | | | | | DEPARTMENT [...] | + + + + + | [facility] DEPARTMENT OF | [address] [address] | [place] [address] | | | PATHOLOGY | [address] [...] | + + + + + | [facility] | [address] | [place] [address] | | | PATHOLOGY | [address] | | | + + + + + documented in this encounter Visit Diagnoses + + | Diagnosis | + + | Stroke (HCC) Unspecified cerebral artery occlusion with cerebral infarction | + + documented in this encounter"
--- OUTSIDE RECORDS SUMMARY | ~2020-02-21 | XMS | Encounter Summary ---
Demographics + + + | Address | [address] | | | [place] [address] | + + + | Home Phone | | + + + | Preferred Language | Unknown | + + + | Marital Status | Single | + + + | Jehovah'S Witness Affiliation | NON | + + + | Race | White | + + + | Ethnic Group | Not or | + + + Author + + + | Author | [facility] | + + + | Organization | [facility] | + + + | Address | Unknown | + + + | Phone | Unavailable | + + + Support + + +---------+ + | Name | Relationship | Address | Phone | + + +---------+ + | Valerie Perales | ECON | Unknown | | + + +---------+ + Care Team Providers + +------+ + | Care Insurance Administrative Assistant Name | Role | Phone | + +------+ + | Stella Cuevas PA-C | PCP | | + +------+ + Encounter Details +--------+ + + + + | Date | Type | Department | Care Team | Description | +--------+ + + + + | 04/28/ | Telephone | [facility] | [facility] | | | 2015 | | [facility] [address] | | | | | [place] | | | | | | [address] | | | | | | [phone] | | | +--------+ + + + [...] this encounter Miscellaneous Notes Telephone Encounter - Shanta Lilly MA - 04/28/2016 9:48 AM PSTCalled and spoke with sonny ent's emergency contact, his girlfriend Valerie and informed that two biopsies came back as S CC. She stated that patient was at work and leaving tomorrow for another two days of work. S he will have him call to schedule C&D when he gets home tonight. Laura Bethea s igned by Shanta Lilly MA at 04/28/2016 9:51 AM PSTdocumented in this encounter Plan of Treatment Not on filedocumented as of this encounter Visit Diagnoses Not on filedocumented in this encounter"
--- OUTSIDE RECORDS SUMMARY | ~2020-02-21 | XMS | Encounter Summary ---
Demographics + + + | Address | [address] | | | [place] [address] | + + + | Home Phone | | + + + | Preferred Language | Unknown | + + + | Marital Status | Unknown | + + + | Moravian Affiliation | Unknown | + + + | Race | White | + + + | Ethnic Group | Not or | + + + Author + + + | Author | [facility] | | | and [place] | + + + | Organization | [facility] | | | and [place] | + + + | Address | Unknown | + + + | Phone | Unavailable | + + + Support + + + + + | Name | Relationship | Address | Phone | + + + + + | Valeriedileep Gamboawell | [place] | [address] | | | | | [place] | | | | | [address] | | + + + + + Care Team Providers + +------+ + | Care Millinery Blocker Name | Role | Phone | + +------+ + | Domingo Justice PA-C | PCP | | + +------+ + Reason for Visit +--------+ + | Reason | Comments | +--------+ + | Other | Per patient a letter for return to work on light duty has been | | | faxed to his work. | +--------+ + Encounter Details +--------+ + + + + | Date | Type | Department | Care Team | Description | +--------+ + + + + | 11/19/ | Documentati | [facility] | Kristin Sawyer, | Other (Per patient a | | 2020 | on | CARDIOLOGY [facility]ICH | [employer] | letter for return | | | | [address] | | to work on light | | | | [place], [place] | | duty has been faxed | | | | [address] | | to his work.) | | | | [phone] | | | +--------+ + + + [...]
--- OUTSIDE RECORDS SUMMARY | ~2020-02-21 | XMS | Encounter Summary ---
Demographics + + + | Address | [address] | | | [place] [address] | + + + | Home Phone | | + + + | Preferred Language | Unknown | + + + | Marital Status | Single | + + + | Voodoo Affiliation | NON | + + + | Race | White | + + + | Ethnic Group | Not or | + + + Author + + + | Author | [facility] | + + + | Organization | [facility] | + + + | Address | Unknown | + + + | Phone | Unavailable | + + + Support + + +---------+ + | Name | Relationship | Address | Phone | + + +---------+ + | Valerie Perales | ECON | Unknown | | + + +---------+ + Care Team Providers + +------+ + | Care Economic Development Manager Name | Role | Phone | + +------+ + | Forest Laurent MD | PCP | Unavailable | + +------+ + Encounter Details +--------+ + + + + | Date | Type | Department | Care Team | Description | +--------+ + + + + | 10/21/ | Research | [place] [facility] | Jadiel Merida MD | | | 2012 | Encounter | [facility] | [address] | | | | | [address] [place] | [place], [place] | | | | | [address] | [address] | | | | | [address] | [phone] | | | | | [facility], | | | | | | floor [place], [place] | | | | | | [address] | | | | | | [phone] | | | +--------+ + + + [...] + + + | Blood Pressure | 147/86 | 10/21/2012 10:45 AM | | | | | PDT | | + + + + + | Pulse | 90 | 10/21/2012 10:45 AM | | | | | PDT | | + + + + + | Temperature | - | - | | + + + + + | Respiratory Rate | - | - | | + + + + + | Oxygen Saturation | 94% | 10/21/2012 10:45 AM | | | | | PDT | | + + + + + | Inhaled Oxygen | - | - | | | Concentration | | | | + + + + + | Weight | 105.8 kg (233 lb 4.8 | 10/21/2012 10:45 AM | | | | oz) | PDT | | + + + + + | Height | - | - | | + + + + + | Body Mass Index | - | - | | + + + + + documented in this encounter Progress Notes Jadiel Merida MD - 10/21/2012 11:03 AM PDTFormatting of this note might be different from t sahil original. STROKE I saw and evaluated patient. I reviewed note HO and concur. 55 y.o. 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 He had a MRA showed basilar stenosis. He was transferred to [facility] ED for f urther evaluation. Angio only 40% basilar. Since last seen no further events. Now on ASA. Along with IRIS study drug. Current Outpatient Prescriptions Medication Sig clopidogrel 75 mg Oral Tablet Take 1 Tab by mouth once daily. lisinopril 10 mg Oral Tablet Take 1 Tab by mouth once daily. ranitidine 150 mg Oral Tablet Take 1 Tab by mouth two times daily. simvastatin 20 mg Oral Tablet Take 1 Tab by mouth once daily in the evening. No current facility-administered medications for this visit. 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 Will check L DL today goal < 70. May need to advance from Simvastatin (Had been on CRESTOR). Doing well in IRIS prediabetes trial. P) ASA Simvastatin 20mg RTC on year documented in this encou nter Plan of Treatment Not on filedocumented as of this encounter Visit Diagnoses Not on filedocumented in this encounter"
--- OUTSIDE RECORDS SUMMARY | ~2020-02-21 | XMS | Encounter Summary ---
Demographics + + + | Address | [address] | | | [place] [address] | + + + | Home Phone | | + + + | Preferred Language | Unknown | + + + | Marital Status | Unknown | + + + | Adventism Affiliation | Unknown | + + + | Race | White | + + + | Ethnic Group | Not or | + + + Author + + + | Author | [facility] | | | and [place] | + + + | Organization | [facility] | | | and [place] | + + + | Address | Unknown | + + + | Phone | Unavailable | + + + Support + + + + + | Name | Relationship | Address | Phone | + + + + + | Valerie Perales | ECON | [address] | | | | | [place] | | | | | [address] | | + + + + + Care Team Providers + +------+ + | Care Youth Development Professional Name | Role | Phone | + +------+ + | Domingo Justice PA-C | PCP | | + +------+ + Reason for Visit +--------+ + | Reason | Comments | +--------+ + | Other | CAD | +--------+ + Evaluate & Treat (Urgent) +--------+ + + + + + | Status | Reason | Specialty | Diagnoses / | Referred By | Referred To | | | | | Procedures | Contact | Contact | +--------+ + + + + + | Closed | Specialty | Cardiothoraci | Diagnoses | Alqaisi, | Cr, | | | Services | c Surgery | Coronary | MD Gary | MD Cj | | | Required | | artery | [address] | | | | | disease | [address] | [address] | | | | | involving | [place], | [place], [place] | | | | | [place] | [place] [address] | [address] Phone: | | | | | coronary | Phone: | [phone] | | | | | artery of | [phone] | Fax: | | | | | [place] heart | Fax: | [phone] | | | | | without | [phone] | | | | | | angina | | | | | | | pectoris | | | +--------+ + + + + + Encounter Details +--------+---------+ + + + | Date | Type | Department | Care Team | Description | +--------+---------+ + + + | 11/27/ Office | [facility] | Cj Cr MD | CAD in [place] artery | | 2020 | Visit | CARDIOTHORACIC | [address] | (Primary Dx) | | | | SURGERY [address] | [address] [place], [place] | | | | | [address] | [address] | | | | | [place], [place] | | | | | | [address] | | | | | | [phone] | | | +--------+---------+ + + + [...] Ready to Quit: Yes | | Comments: Nicotine patch, 1-2 cigarettes a [...] + + + | Blood Pressure | 122/75 | 11/28/2019 8:19 AM | | | | | PDT | | + + + + + | Pulse | 72 | 11/28/2019 8:19 AM | | | | | PDT | | + + + + + | Temperature | 36.8 C (98.3 F) | 11/28/2019 8:19 AM | | | | | PDT | | + + + + + | Respiratory Rate | - | - | | + + + + + | Oxygen Saturation | 96% | 11/28/2019 8:19 AM | | | | | PDT | | + + + + + | Inhaled Oxygen | - | - | | | Concentration | | | | + + + + + | Weight | 93.6 kg (206 lb 6.4 | 11/28/2019 8:19 AM | | | | oz) | PDT | | + + + + + | Height | 182.9 cm (6') | 11/28/2019 8:19 AM | | | | | PDT | | + + + + + | Body Mass Index | 27.99 | 11/28/2019 8:19 AM | | | | | [...] as of this encounter Progress Notes Cj Cr MD - 11/28/2019 8:00 AM PDT Service: Cardiothoracic Surgery Consult Note [...] bifurcation and disease in the circumflex system. We are asked to evaluate the patient for surgical revascularization.. He is currently asymptomatic. REVIEW OF SYSTEMS Review of Systems HENT: Negative. Respiratory: Negative. Cardiovascular: Negative. Gastrointestinal: Negative. Genitourinary: Negative. Musculoskeletal: Negative. Neurological: CVA-2013-No residual deficits Psychiatric/Behavioral: Negative. All other systems are reviewed and negative Past Medical History: Diagnosis Date Diabetes mellitus (HCC) Past Surgical History: Procedure Laterality Date CARDIAC CATHERIZATION N/A 11/09/2019 Procedure: CV COR ANGIO; Surgeon: Gary Avery MD; [place] [facility] [place] CARDIAC CATHERIZATION N/A 11/09/2019 Procedure: CV LHC; Surgeon: Gary Avery MD; [place] [facility] [place] CARDIAC CATHERIZATION N/A 11/09/2019 Procedure: CV Stent; Surgeon: Gary Avery MD; [place] [facility] [place] TONSILLECTOMY No Known Allergies (Not [...] Use Smoking status: Current Every Day Smoker Packs/day: 0.25 Start date: 11/27/1974 Smokeless tobacco: Never Used Tobacco comment: Nicotine patch, 1-2 cigarettes a day Substance and Sexual Activity Alcohol use: Not Currently Drug use: Never Sexual activity: Not Currently Lifestyle Physical activity Days per week: Not on file Minutes per session: Not on file Stress: Not on file Relationships Social connections Talks on phone: Not on file Gets together: Not on file Attends voodoo service: Not on file Active member of [...] on file PHYSICAL EXAM Vital Signs: BP 122/75 | Pulse 72 | Temp 36.8 C (98.3 F) (Temporal) | Ht 1.829 m (6') | Wt 93.6 kg (206 lb 6.4 oz) | SpO2 96% | BMI 27.99 kg/m Physical Exam Vitals signs reviewed. Constitutional: [...] . A BLN NC QNTM APX MR [id number] was used for post-stent dilation. There is a 0% residual stenosis post intervention. Echo 11/10/19 Conclusion 1. Normal overall left ventricular systolic function with EF 60 to 65%. 2. Mild concentric left ventricular hypertrophy. 3. Moderate hypokinesia of the basal to mid inferolateral wall and basal inferior wall. 4. No significant valvular disorders. ASSESSMENT & PLAN 64 y.o. with 3 vessel coronary artery disease and preserved left ventricular function. The patient presented with an acute inferior wall myocardial infraction and has undergone PCI a nd stenting of the RPDA. The proximal LAD lesion involving a large diagonal branch is best s erved with surgical revascularization. The very distal LAD lesion can subsequently be treate d with PCI and stenting. Risks and benefits of the procedure including but not limited to bl eeding, infection, stroke, damage to the heart, lungs kidneys and were discussed at [facility] with the patient and his family. The patient will need to be off plavix prior to surgi valeria revascularization. Timing of surgical intervention will be discussed with Dr. Avery. Primary Care Physician: EDUIN Keenan MD 11/28/2019 *CORE MEASURES REMINDER: If the patient has a known or suspected infection prior to surger y, please add diagnosis to the problem list (consider: Infection 136.9). documented in this enco unter Plan of Treatment Not on filedocumented as of this encounter Visit Diagnoses + + | Diagnosis | + + | CAD in [place] artery - Primary Coronary atherosclerosis of hopi coronary artery | + + documented in this encounter"
--- OUTSIDE RECORDS SUMMARY | ~2020-02-21 | XMS | Encounter Summary ---
Demographics + + + | Address | [address] | | | [place] [address] | + + + | Home Phone | | + + + | Preferred Language | Unknown | + + + | Marital Status | Unknown | + + + | Congregational Affiliation | Unknown | + + + | Race | White | + + + | Ethnic Group | Not or | + + + Author + + + | Author | [facility] | | | and [place] | + + + | Organization | [facility] | | | and [place] | + + + | Address | Unknown | + + + | Phone | Unavailable | + + + Support + + + + + | Name | Relationship | Address | Phone | + + + + + | Valerie Perales | ECON | [address] | | | | | [place] | | | | | [address] | | + + + + + Care Team Providers + +------+ + | Care Critical Care Technician Name | Role | Phone | + +------+ + PCP | Unavailable | + +------+ + Reason for Visit +--------+--------+ + | Reason | Onset | Comments | | | Date | | +--------+--------+ + | Other | 11/15/ | | | | 2020 | | +--------+--------+ + Encounter Details +--------+ + + + + | Date | Type | Department | Care Team | Description | +--------+ + + + + | 11/15/ | Telephone | [facility] | Gary Avery MD | Other | | 2020 | | CARDIOLOGY [place] | [address] | | | | | [address] | [place] [address] | | | | | [place], [place] | [phone] | | | | | [address] | | | | | | [phone] | | | +--------+ + + + [...] Encounter - Kristin Sawyer Medical Assistant - 11/16/2019 10:[address] Meredith roman I called patient to inform him that he is not released to go back to work and he needs to see a cardiothoracic surgeon. Patient was not available so I left a VM to return my call. Kristin Poetronically signed by Kayla Daniel at 11/16/2019 10: 34 AM PDTTelephone Encounter - Kristin Sawyer Medical Assistant - 11/16/2019 10:31 AM PDT--- -- Message from Gary Avery MD sent at 11/16/2019 9:14 AM PDT ----- Shanae, He can't be released back to work yet. He is supposed to meet Dr. Cr to discuss possible CABG Vs another stent. Please, bring him to our clinic next week to discuss that and I will renew the referral to Dr. Cr. Thank you. ----- Message ----- From: Kayla Daniel Sent: 11/16/2019 9:09 AM PDT To: Gary Avery MD Hello, Patient would like a return to work letter and also is asking about a second surgery? Please advise. Kristin PINTO document ed in this encounter Plan of Treatment Not on filedocumented as of this encounter Visit Diagnoses Not on filedocumented in this encounter"
--- OUTSIDE RECORDS SUMMARY | ~2020-02-21 | XMS | Encounter Summary ---
Demographics + + + | Address | [address] | | | [place] [address] | + + + | Home Phone [...] + | Valerie Perales | ECON | [address] | | | | | [place] | | | | | [address] | | + + + + + Care Team Providers + +------+ + | Care Coverage Analyst Name | Role | Phone | + +------+ + | Domingo Justice PA-C | PCP | | + +------+ + Reason for Visit +--------+ + | Reason | Comments | +--------+ + | Other | KATYA paperwork faxed to [facility] [place] [employer] | +--------+ + Encounter Details +--------+ + + + + | Date | Type | Department | Care Team | Description | +--------+ + + + + | 12/25/ | Documentati | [facility] | Gary Avery MD | Other (FMLA | | 2020 | on | CARDIOLOGY [place] | [address] | paperwork faxed to | | | | [address] | [place] [address] | [facility] | | | | [place], [place] | [phone] | [employer] [employer]) | | | | [address] | | | | | | [phone] | | | +--------+ + + + [...]
--- OUTSIDE RECORDS SUMMARY | ~2020-02-21 | XMS | Encounter Summary ---
Demographics + + + | Address | [address] | | | [place] [address] | + + + | Home Phone | | + + + | Preferred Language | Unknown | + + + | Marital Status | Single | + + + | Taoism Affiliation | NON | + + + | Race | White | + + + | Ethnic Group | Not or | + + + Author + + + | Author | [facility] | + + + | Organization | [facility] | + + + | Address | Unknown | + + + | Phone | Unavailable | + + + Support + + +---------+ + | Name | Relationship | Address | Phone | + + +---------+ + | Valerie Perales | ECON | Unknown | | + + +---------+ + Care Team Providers + +------+ + | Care Prefabricator Name | Role | Phone | + +------+ + | Forest Laurent MD | PCP | Unavailable | + +------+ + Encounter Details +--------+ + + + + | Date | Type | Department | Care Team | Description | +--------+ + + + + | 09/03/ | Results | LAB REFERRED TESTS | Other, Faculty | | | 2010 | Only | [address] | [phone] | | | | | [address] | | | | | | [place] | | | | | | [address] | | | +--------+ + + + [...] | + +--------+ + + + | EJECTION FRACTION | Routin | 09/03/2010 | | Results for this | | | e | 8:42 AM | | procedure are in the | | | | PDT | | results section. | + +--------+ + + + documented in this encounter Results EJECTION FRACTION (09/03/2010 8:42 AM PDT) + + + + + + | Component | Value | Ref Range | Performed | Pathologist | | | | | At | Signature | + + + + + + | EJECTION | 60 - 65%Comment: EF | | [facility] | | | FRACTION | Recorded from | | OF | | | | Transthoracic | | CARDIOLOGY | | | | Echocardiogram | | | | + + + + + + + + | Specimen | + + | | + + + + + + + | Performing | Address | City/State/Zipcode | Phone Number | | Organization | | | | + + + + + | [facility] | [address] | [place], [place] | | | CARDIOLOGY | [address] | [address] | | + + + + + documented in this encounter Visit Diagnoses Not on filedocumented in this encounter"
[2020-02-21] MEDS ORDERED: METOPROLOL SUCC50 MG PO (15:42)
[2020-02-21] MEDS ORDERED: ATORVASTATIN CA80 MG PO (15:42)
[2020-02-21] MEDS ORDERED: CLOPIDOGREL75 MG PO (15:42)
[2020-02-21] MEDS ORDERED: LISINOPRIL10 MG PO (15:42)
[2020-02-21] MEDS ORDERED: ASPIRIN81 MG PO (15:43)
[2020-02-22] MEDS ORDERED: TAMSULOSIN HCL0.4 MG PO (09:36)
[2020-02-22] MEDS ORDERED: FUROSEMIDE40 MG PO (09:37)
[2020-02-22] MEDS ORDERED: LANTUS100 UNITS/ SUB-Q (09:37)
[2020-02-22] MEDS ORDERED: HUMALOG100 UNITS/ SUB-Q ×2 (09:37)
== END 2020-02-22 09:43 | disposition home or self-care (01) | DRG 950 ==
LOC: MS 12:20
PROVIDERS: ADMIT Student in an Organized Health Care Education/Training Program; ATTEND Student in an Organized Health Care Education/Training Program
DX: Z48.812 Encounter for surgical aftercare following surgery on the circulatory system (principal); I25.10 Atherosclerotic heart disease of native coronary artery without angina pectoris; E11.9 Type 2 diabetes mellitus without complications; I10 Essential (primary) hypertension; N40.0 Benign prostatic hyperplasia without lower urinary tract symptoms; E78.5 Hyperlipidemia, unspecified; Z79.82 Long term (current) use of aspirin; Z95.1 Presence of aortocoronary bypass graft; Z79.4 Long term (current) use of insulin; Z79.899 Other long term (current) drug therapy; Z79.02 Long term (current) use of antithrombotics/antiplatelets
CPT/HCPCS: C9803; J1815